=== PATIENT | female | born 1945 | race Caucasian/White ===

== ENCOUNTER → 2016-05-16 | Outpatient (CLI) | payer MEDICARE, MEDICAID ==
[~2016-05-16] MED LIST: /ADVA50050 IN; /ADVA50050 INH; /ADVA50050 PO; /DULO30CA OR; /ESOM40CA OR; /ESOM40CA PO; /MOXI40TA PO; /PANT40TA PO; /RANI15TA PO; /TIOT18INH INH; ABIL5TAB PO; ACCO20TA4 OR; ACCO20TA4 PO; ACET250C PO; ACET50TAOT PO; ACET650S3 PR; ADV500INH INH; ADVAIR INH; ALBUTEROL INH; ALLO100T PO; ALLO10TA PO; ALOE; AMMO12CR4 TOP; ASPI1TAB PO; ASPI325T PO; ASPI81TA3 PO; ATEN25TA PO; ATIV1TAB10 PO; ATOR40TA PO; AVEL1TAB PO; BACT2OIN12; BEN1.4DI TD; BETA10003 PO; CALC0.25 PO; CALCCHW12 OR; CALCCHW12 PO; CALCTAB75 PO; CETI5TA PO; CORE3.12 OR; COZA25TA8 OR; CYMB1CAP4 PO; DOCQ100C PO; DULO20CA PO; DULO30CA PO; DUONSOL IN; DUONSOL INH; ECOT81TA5 PO; FERR324T2 PO; FERR325T16 PO; FEXO180T58 PO; FLUTISP; FURO20TA2 OR; FURO20TA2 PO; FURO40TA2 PO; FURO80TA2 OR; GABA300C2 PO; GLIM1TAB OR; GLUC1000 PO; HYDR-3719 PO; HYDROCORTISONE0.5 % EX; IBUP60TA PO; ICAPCAP PO; INSUHUMDS SC; INSULANT SC; INSUPOW SC; INVO100T PO; K-TA10TA2 PO; LASI20TA PO; LASI80TA PO; LEVA750T OR; LEVO500T PO; LEVOCETIRIZINE PO; LEVOTAB10 PO; LISI10TA4 PO; LISI20TA5 OR; LISI20TA5 PO; LISI5TAB PO; MAG-400T7 PO; MAGN400C2 PO; MEGATAB4 PO; MELOPOW PO; METF-415 PO; METF500T PO; METO25TA PO; MONT10TA2 PO; MORP15TA2 PO; MOXI1TAB PO; MULTIVIT OR; MULTIVIT PO; MYSO50TA PO; NEUR300C PO; NEXI40CA PO; OXYC1TAB23 PO; OYST500T50 PO; PERC5TAB6 PO; PERC7.5T12 PO; PERCOCET PO; POTA10CA2 OR; POTA20TA6 PO; PRED20TA OR; PRED20TA PO; PRIM250T5 PO; PRIMPOW10 PO; PRO AIR INH; PROA1AER INH; PROV90AE IN; RANI15TA PO; ROSI2TA OR; ROSI2TA PO; SIMV40TA2 OR; SING4GRA PO; SITA50TAB PO; SPIR1CAP INH; SPIR25TA2 PO; SYNT50TA PO; TRAM50TA2 OR; TRAM50TA2 PO; TRAMADOL PO; TRAZ100T OR; TRAZ150T14 PO; TRIC145T PO; TRIC145T19 OR; TRIC145T19 PO; VARE05TA PO; VARE1TA PO; VENL100T PO; VENL150C43 PO; VENL37TA OR; VENL75TA2 PO; VENLAFAXINE ER PO; VICO5TAB OR; VIT D 2000 PO; VIT D3; VITA2000 PO; VOLT1GEL2 TD; XYZA5TAB2 PO; ZANT150T PO; ZOCO40TA PO; [UNRECOGNIZED DRUG - CODE] PO; [UNRECOGNIZED DRUG - OTHER]; [UNRECOGNIZED DRUG - OTHER]; januvia PO
--- NOTE | 2016-05-16 08:53 | REP ---
Clinical: Postoperative swelling. Technique: PA and lateral. Comparison: 04/23/2016. Findings: Mediastinum and cardiac silhouette are within normal limits and stable. Lung jacome demonstrate chronic interstitial changes without acute consolidation, effusion, or pneumothorax. Skeletal structures are intact. Visualized surrounding soft tissues without subcutaneous emphysema or obvious mass/mass effect. Impression: Chronic stable changes. No obvious acute cardiopulmonary process by radiographic evaluation. Signed by Ki Garcia MD 05/16/2016 08:45 A
== END ==
LOC: M SMT 08:00
PROVIDERS: ATTEND Thoracic Surgery (Cardiothoracic Vascular Surgery)
DX: R22.2 Localized swelling, mass and lump, trunk (principal)

== ENCOUNTER → 2016-05-28 | Outpatient (CLI) | payer MEDICARE, MEDICAID ==
[~2016-05-28] MED LIST changes: +FLUT1POW2
[2016-05-28 12:07] LABS: INR 0.91
[2016-05-28 12:11] LABS: MEAN CORPUSCULAR HEMOGLOBIN 31.2 pg (27.0-33.0); MEAN CORPUSCULAR HGB CONC 34.9 g/dl (32.0-36.5); MEAN CORPUSCULAR VOLUME 89.3 fl (80.0-96.0); WHITE BLOOD COUNT 8.4 K/mm3 (4.0-10.0)
[2016-05-28 12:21] LABS: CALCIUM LEVEL 8.4 MG/DL (8.8-10.2); CREATININE FOR GFR 1.15 MG/DL (0.55-1.02); GLOMERULAR FILTRATION RATE 49.7 (>39); POTASSIUM SERUM 4.8 MEQ/L (3.5-5.1)
[2016-05-28 12:31] LABS: MICROSCOPIC INDICATED? MAN NO (NO)
--- NOTE | 2016-05-29 18:03 | ECGEPIP ---
Stationary ECG Study [facility] Test Date: 2016-05-28 Pat Name: PINEDA VALDERRAMA Department: Room: - Gender: F Health Tech: RONDA : 1945 Requested By: Tim Montes Order Number: [id number] Reading MD: Clinton Adames Measurements Intervals [place] Rate: 88 P: 59 KS: 160 QRS: 75 QRSD: 73 T: 66 QT: 341 QTc: 413 Interpretive Statements SINUS RHYTHM LAST TRACING ON 09/27/2014 AT 11:34:43. NO PACs NOTED AT THIS TIME OTHERWISE THERE ARE NO SIGNIFICANT CHANGES Electronically Signed On 05-29-2016 18:02:52 EST by Clinton Adames
== END ==
LOC: M LAB 11:03
PROVIDERS: ATTEND Thoracic Surgery (Cardiothoracic Vascular Surgery)
DX: C34.11 Malignant neoplasm of upper lobe, right bronchus or lung (principal); Z01.818 Encounter for other preprocedural examination

== ENCOUNTER → 2016-05-30 | Outpatient (CLI) | payer MEDICARE, MEDICAID ==
--- NOTE | 2016-05-30 17:06 | REP ---
CT study of the chest without contrast: History: Lung cancer. Comparison is made with prior CT studies, the most recent of which is from 02/14/2016. 02/09/2015 prior study is also reviewed. CT findings: The non solid ground-glass opacity previously noted in the right upper lobe is again seen. This has spiculated margins and a 2 cm greatest diameter today. It has enlarged somewhat since the prior studies. This must be considered suspicious. There is another irregular opacity in the superior segment left lower lobe measuring 7 mm in diameter which is unchanged. This is unchanged from February 2015. There is a small cavitary nodular opacity 6 mm in diameter in the left upper lobe posteriorly. This appears slightly smaller than on the most recent prior study of 02/14/2016. There are advanced emphysematous changes bilaterally particularly in the upper lobes. A stable pleural based nodular opacity is seen in the right upper lobe posteriorly 6 mm in diameter. This is unchanged from February 2015. No hilar or mediastinal mass or adenopathy is observed. No pleural effusion is seen. No adrenal lesion is seen. The visualized upper abdominal structures are unremarkable. There is some vascular calcification as before. No bony destructive lesion is seen. Impression: Gradual enlargement in the suspicious ground-glass opacity 2 cm in greatest diameter now in the posterior segment right upper lobe. Otherwise stable findings. Signed by Haroldo Stokes MD 05/31/2016 07:50 A
== END ==
LOC: M RAD 16:08
PROVIDERS: ATTEND Thoracic Surgery (Cardiothoracic Vascular Surgery)
DX: C34.11 Malignant neoplasm of upper lobe, right bronchus or lung (principal)

== ENCOUNTER 2016-05-31 06:31 | Inpatient (IN) | payer MEDICARE, MEDICAID ==
[2016-05-31] VITALS (11 sets, daily range): BP systolic 97–155; BP diastolic 44–86
[~2016-05-31] VITALS: Ht 167.6 cm; Wt 115.5 kg
[~2016-05-31 06:31] MED LIST changes: +LR 1,000 ML IV SCH; +VANCOMYCIN HCL 1,000 MG, VIAL MATE ADAPTER 1 EACH in D5W 250 ML IV ONE
[2016-05-31] MEDS ORDERED: MUPIROCIN 2% OINT 22 GM TUBE TOP ONE (06:45)
[2016-05-31] MEDS ORDERED: BUPIVACAINE HCL 0.5% 10 ML VIAL As Ordered ONE (07:25)
[2016-05-31 07:26] LABS: ABG BASE EXCESS -0.2 (-2.0-2.0); ABG HCO3 23.8 MEQ/L (22.0-26.0); ABG PARTIAL PRESSURE CO2 36.9 mmHg (35.0-45.0); ABG PARTIAL PRESSURE O2 66.1 mmHg (75.0-100.0); ABG STANDARD HCO3 24.2 MEQ/L (22.0-26.0); ABG pH (ARTERIAL) 7.428 UNITS (7.350-7.450); CARBOXYHEMOGLOBIN 1.5 % (0.0-1.5)
[2016-05-31] MEDS ORDERED: BUPIVACAINE LIPOSOME/PF 1.3% 20ML (266MG/20ML) VIAL (EXPAREL) As Ordered ONE (07:26)
[2016-05-31] MEDS ORDERED: ROCURONIUM BROMIDE 50 MG/5 ML VIAL As Ordered ONE ×3 (07:54→11:48)
[2016-05-31] MEDS ORDERED: MIDAZOLAM INJ 2 MG/2 ML VIAL (J2250) As Ordered ONE ×2 (07:54→08:19)
[2016-05-31] MEDS ORDERED: fentaNYL 250 MCG/5 ML INJECTION (J3010) As Ordered ONE ×2 (07:54→11:46)
[2016-05-31] MEDS ORDERED: LIDOCAINE 2% INJ 100 MG/5 ML SDV (FOR ANES.) As Ordered ONE (07:54)
[2016-05-31] MEDS ORDERED: PROPOFOL 200 MG/20 ML VIAL As Ordered ONE (07:54)
[2016-05-31] MEDS ORDERED: HumaLOG INSULIN (NovoLOG) PER UNIT SC ONE ×2 (08:15→15:30)
[2016-05-31] MEDS ORDERED: fentaNYL 100 MCG/2 ML INJECTION (J3010) As Ordered ONE (08:19)
--- NOTE | 2016-05-31 09:21 | REP ---
CHEST, TWO VIEWS: HISTORY: Preop. COMPARISON: 05/16/2016 A minimal increase in interstitial markings is present in the lungs consistent with chronic interstitial fibrosis. The heart is normal in size. The pulmonary vasculature is normal in appearance. The bony structure is intact. IMPRESSION: Chronic interstitial fibrosis. Signed by Bassam Cook MD 05/31/2016 09:24 A
[2016-05-31] MEDS ORDERED: ePHEDrine SULFATE 25 MG/5 ML(5MG/ML) SYRINGE As Ordered ONE (10:18)
[2016-05-31] MEDS ORDERED: PHENYLephrine HCL 500 MCG/5 ML (100MCG/ML) SYRINGE (J2370) As Ordered ONE (10:18)
[2016-05-31] MEDS ORDERED: fentaNYL 100 MCG/2 ML INJECTION (J3010) IV ONE (10:30)
[2016-05-31] MEDS ORDERED: MIDAZOLAM INJ 2 MG/2 ML VIAL (J2250) IV ONE (10:30)
[2016-05-31] MEDS ORDERED: BUPIVACAINE HCL 0.5% 10 ML VIAL XX ONE (10:44)
[2016-05-31] MEDS ORDERED: BUPIVACAINE LIPOSOME/PF 1.3% 20ML (266MG/20ML) VIAL (EXPAREL) XX ONE (10:45)
[2016-05-31] MEDS ORDERED: NALOXONE INJ 0.4 MG/1 ML VIAL (J2310) IV PRN (11:00)
[2016-05-31] MEDS ORDERED: diphenhydrAMINE INJ 50MG/ML VIAL (J1200) IV PRN (11:00)
[2016-05-31] MEDS ORDERED: EPIDURAL/PCA KEYS XX PRN (11:00)
[2016-05-31] MEDS: FENTANYL/BUPIVACAINE/NACL CADD 250 ML EPIDURAL SCH (11:00)
[2016-05-31] MEDS ORDERED: METOCLOPRAMIDE INJ 10MG/2ML VIAL (J2765) IV PRN ×2 (11:00→14:45)
[2016-05-31] MEDS ORDERED: ONDANSETRON 4MG/2ML VIAL (J2405) IV PRN ×3 (11:00→14:45)
[2016-05-31] MEDS ORDERED: WALLBOXKEY XX PRN (11:00)
[2016-05-31] MEDS ORDERED: NEOSTIGMINE 1MG/ML 5 ML SYRINGE (J2710) As Ordered ONE (13:00)
[2016-05-31] MEDS ORDERED: GLYCOPYRROLATE INJ 0.2 MG/ML 2 ML VIAL As Ordered ONE ×2 (13:00)
[2016-05-31] MEDS ORDERED: ONDANSETRON 4MG/2ML VIAL (J2405) As Ordered ONE (13:00)
[2016-05-31] MEDS ORDERED: KCL 20MEQ IN D5/NS 1000ML 1,000 ML IV SCH (14:06)
[2016-05-31] MEDS ORDERED: ACETAMINOPHEN TAB 650MG DOSE (2X325MG) PO PRN (14:15)
[2016-05-31] MEDS ORDERED: BISACODYL 10 MG SUPP PR PRN (14:15)
[2016-05-31] MEDS ORDERED: zolPIDEM TARTRATE 5 MG TAB PO PRN (14:15)
[2016-05-31 14:28] LABS: ABG BASE EXCESS 0.6 (-2.0-2.0); ABG HCO3 26.4 MEQ/L (22.0-26.0); ABG PARTIAL PRESSURE O2 132.9 mmHg (75.0-100.0); ABG STANDARD HCO3 25.1 MEQ/L (22.0-26.0); ABG TOTAL CO2 27.9 MEQ/L (23.0-31.0); ABG pH (ARTERIAL) 7.368 UNITS (7.350-7.450)
[2016-05-31] MEDS ORDERED: KETOROLAC 30 MG/ML VIAL (J1885) As Ordered ONE (14:28)
[2016-05-31] MEDS ORDERED: DEXTROSE 50% 50 ML SYRINGE IV PRN (14:30)
[2016-05-31] MEDS: KETOROLAC 30 MG/ML VIAL (J1885) IV SCH (14:30)
[2016-05-31] MEDS ORDERED: GLUCAGON FOR INJ 1 MG VIAL (J1610) SC PRN (14:30)
[2016-05-31] MEDS ORDERED: GLUCOSE 4 GM CHEW TABLET PO PRN (14:30)
[2016-05-31 14:31] LABS: BASO % 0.3 % (0.0-1.0); EOS # 0.1 K/mm3 (0.0-0.50); EOS % 0.6 % (0.0-3.0); LARGE UNSTAINED CELL # 0.1 K/mm3 (0.0-0.4); LARGE UNSTAINED CELL % 0.6 % (0.0-4.0); LYMPH # 0.6 K/mm3 (1.5-4.5); MEAN CORPUSCULAR HEMOGLOBIN 30.3 pg (27.0-33.0); MEAN CORPUSCULAR HGB CONC 33.2 g/dl (32.0-36.5); MEAN CORPUSCULAR VOLUME 91.2 fl (80.0-96.0); MONO # 0.8 K/mm3 (0.0-0.8); MONO % 4.7 % (0.0-5.0); NEUTROPHILS # 14.3 K/mm3 (1.8-7.7); NEUTROPHILS % 89.8 % (36.0-66.0); PLATELET COUNT, AUTOMATED 227 k/mm3 (150-450); RED CELL DISTRIBUTION WIDTH 14.8 % (11.5-14.5)
[2016-05-31] MEDS ORDERED: LR 1,000 ML IV SCH (14:45)
[2016-05-31] MEDS ORDERED: PERCOCET 5MG/325MG TAB PO PRN (14:45)
[2016-05-31 14:46] LABS: CALCIUM LEVEL 8.3 MG/DL (8.8-10.2); CREATININE FOR GFR 1.09 MG/DL (0.55-1.02); GLOMERULAR FILTRATION RATE 52.8 (>39)
[2016-05-31 14:47] LABS: POTASSIUM SERUM 5.4 MEQ/L (3.5-5.1)
[2016-05-31] MEDS: fentaNYL 100 MCG/2 ML INJECTION (J3010) IV PRN ×4 (14:50→15:23)
--- NOTE | 2016-05-31 15:04 | REP ---
PORTABLE CHEST: Single AP portable view of the chest is performed. Patient is status post right lobectomy. Two right chest tubes appear to be in place. There is no pneumothorax. There is mild elevation of the right hemidiaphragm. There are scattered right lung opacities. Left lung is unchanged. IMPRESSION: No pneumothorax. Two right chest tubes in place. Mild scattered right lung opacities compatible with right lobectomy. Signed by Alfred Hughes MD 05/31/2016 04:29 P
[2016-05-31 15:14] LABS: ABG BASE EXCESS 0.9 (-2.0-2.0); ABG PARTIAL PRESSURE CO2 43.3 mmHg (35.0-45.0); ABG PARTIAL PRESSURE O2 88.8 mmHg (75.0-100.0); ABG STANDARD HCO3 25.3 MEQ/L (22.0-26.0); ABG TOTAL CO2 27.4 MEQ/L (23.0-31.0); ABG pH (ARTERIAL) 7.397 UNITS (7.350-7.450)
[2016-05-31] MEDS ORDERED: D5W/0.9% SODIUM CHLORIDE 1,000 ML IV SCH (16:15)
[2016-05-31] MEDS: MOM 30ML SUSPENSION UDC PO SCH (17:24)
[2016-05-31] MEDS: CALCIUM/VITAMIN D 500 MG TAB PO SCH (17:24)
[2016-05-31] MEDS: FUROSEMIDE 20 MG TAB PO SCH (17:25)
[2016-05-31] MEDS: ASPIRIN 81 MG ENTERIC TAB PO SCH (17:25)
[2016-05-31] MEDS: DULoxetine 30 MG CAP (CYMBALTA) PO SCH (17:25)
[2016-05-31] MEDS: FERROUS GLUCONATE 324 MG TAB PO SCH (17:25)
[2016-05-31] MEDS ORDERED: HumaLOG INSULIN (NovoLOG) PER UNIT SC SCH ×2 (17:30)
[2016-05-31] MEDS: HumaLOG INSULIN (NovoLOG) PER UNIT SC SCH ×2 (18:00→23:06)
[2016-05-31] MEDS: ADVAIR DISKUS 500/50 INH PWD INH SCH (19:44)
[2016-05-31] MEDS: LEVALBUTEROL 1.25 MG/0.5 ML CONCENTRATE NEB NEB SCH (20:00)
[2016-05-31] MEDS ORDERED: ADVAIR DISKUS 500/50 INH PWD INH SCH (20:00)
[2016-05-31] MEDS: DOCUSATE SODIUM 100 MG CAP PO SCH (20:06)
[2016-05-31] MEDS: HEPARIN SOD (PORCINE) 5000 UNITS/ML VIAL SC SCH (20:06)
[2016-05-31] MEDS: ALLOPURINOL 100 MG TAB PO SCH (20:06)
[2016-05-31] MEDS: ATORVASTATIN 20 MG TAB PO SCH (20:06)
[2016-05-31] MEDS: traZODone 50 MG TAB PO SCH (20:09)
--- NOTE | 2016-05-31 23:19 | RO ---
DATE OF PROCEDURE: 05/31/2016 PREPROCEDURE DIAGNOSIS: Right upper lobe lung cancer. POSTPROCEDURE DIAGNOSIS: Right upper lung cancer. OPERATIVE PROCEDURES: Right upper lobectomy. Mediastinal node dissection. Five level rib block. Bronchoscopy. Azygos flap bronchoplasty. SURGEON: Tim Alexander MD [employer]: Vega Arredondo MD ANESTHESIA: FINDINGS: The patient was morbidly and massively obese. This made everything much more difficult. She had lots of inflammatory adipose tissue manifested both in the chest wall and within the mediastinum. Nonetheless, the procedure did go well. The bronchoscopy revealed a normal branching tracheobronchial tree. There were a few secretions. Each segment and subsegment were thoroughly inspected and there were no endobronchial lesions seen. Dr. Arredondo assisted in providing exposure to all the great vessels and retraction. This was done so that the procedure could be done safely in this morbidly obese woman. The thoracotomy revealed essentially complete fissures with adhesions between the fissures. The middle lobe being was bifurcated and both bifurcations were assiduously preserved. Phrenic nerve was noted and was preserved. All and all the procedure was made much more difficult than usual by her morbid obesity. DESCRIPTION OF PROCEDURE: Under satisfactory general anesthesia and a single lumen tube endotracheal intubation, the bronchoscope was placed into the tracheobronchial tree. The findings were as above. There were no endobronchial lesions and each bronchial segment and subsegment were entirely inspected. A double lumen tube was then placed. The patient was then turned to the left lateral decubitus position and sterilely prepped and draped in the usual fashion. The patient had previously been marked as far as where the incisions were going to go. A posterolateral thoracotomy incision was made. This was much larger than normal secondary to her morbid obesity. The latissimus dorsi was divided as was a portion of the serratus anterior. Ribs were counted and it was found that the adipose tissue lining the chest wall was very stuck to the chest wall from chronic inflammation. The chest was entered through the fifth intercostal space above the 6th rib. Retractor was placed and the dissection commenced. All the adhesions to the chest wall which were thin and flimsy were taken down. The adhesions between the major and minor fissures were then taken down. The pulmonary artery was found and the minor fissure just near the confluence of fissures. This was dissected up and down so that the lower lobe vessels could be identified as could the middle lobe vessels. There was a small posterior ascending branch into the right upper lobe and this was ligated with #3-0 silk suture and reinforced with a hemoclip. The posterior mediastinal pleura was then dissected free of the underlying bronchus and the bifurcation between the right upper lobe takeoff and the bronchus intermedius could be delineated. After very careful dissection through a lot of adipose tissue a tunnel could be created from the anterior fissure dissection area to the posterior pleura. Allowed completion of the major fissure by use of a Pablo GENE stapler. Attention was then turned to the pulmonary vein which was dissected free of all the adipose tissue. The middle lobe vein was found to consistent of two immediate branches from the superior pulmonary vein. These were dissected carefully and then the major fissure was again created with the Pablo stapler. The right upper lobe pulmonary vein was then stapled with a vascular GI stapler. The upper lobe vein was then dissected free again of inflammatory tissue and eventually was stapled with a vascular stapler. This was a very tedious slow dissection and in fact both two major branches were taken separately in order to do it safely. Dr. Arredondo was of immense help with the vascular dissections. This then left the bronchus which was then stapled with a 4.8 TA stapler. The bronchus was then tested to 40 cm of water and was found to be intact. There were a few parenchymal leaks where the major and minor fissures had been completed. The mediastinal pleura between the trachea and the superior vena cava was then incised. This had already been cleared with a mediastinoscopy, however, there was an azygos node which was removed after dividing the azygos vein with a vascular stapler. The base of the vein was stapled with two firings of a vascular TA stapler and the azygos vein filleted so as to create an azygos vein flap over the exposed bronchus. After removing the azygos node additional nodes were removed on the bronchus intermedius and the main stem bronchus. The azygos vein flap was then sewn to the bronchial stump with interrupted #3-0 Vicryl sutures. After achieving adequate hemostasis and placing Tisseel glue within the mediastinal dissection space, two chest tubes were placed, both #28s, one curved and one straight posteriorly and anteriorly respectively. Tisseel glue was then placed on the staple lines and the lung inflated. Five level rib block consisting of 0.50% Marcaine mixed with Exparel was then injected beneath each respective rib. Pericostals were then placed and the ribs reapproximated with #1 Prolene suture. The serratus anterior was reapproximated with use of #0 Vicryl suture as was the latissimus dorsi. Subcutaneous tissue was closed with running #3-0 Vicryl suture and the skin with running #3-0 Monocryl subcuticular suture. Prior to closure of the subcutaneous tissue Exparel was injected into the serratus and the platysma dorsi. The patient tolerated the procedure well and left the operating room in satisfactory condition for the recovery room. ROMERO
[2016-06-01] VITALS (14 sets, daily range): BP systolic 116–155; BP diastolic 39–79; O2SAT 89
[2016-06-01] MEDS: LEVALBUTEROL 1.25 MG/0.5 ML CONCENTRATE NEB NEB SCH ×4 (02:00→20:00)
[2016-06-01] MEDS: KETOROLAC 30 MG/ML VIAL (J1885) IV SCH ×4 (03:41→21:00)
[2016-06-01] MEDS: LEVOTHYROXINE 0.05 MG TAB (50 MCG) PO SCH (05:36)
[2016-06-01] MEDS: HumaLOG INSULIN (NovoLOG) PER UNIT SC SCH ×4 (05:47→21:00)
[2016-06-01 05:51] LABS: BASO % 0.2 % (0.0-1.0); EOS # 0.1 K/mm3 (0.0-0.50); EOS % 0.5 % (0.0-3.0); LARGE UNSTAINED CELL # 0.2 K/mm3 (0.0-0.4); LARGE UNSTAINED CELL % 1.2 % (0.0-4.0); LYMPH # 0.5 K/mm3 (1.5-4.5); LYMPH % 4.3 % (24.0-44.0); MEAN CORPUSCULAR HEMOGLOBIN 30.4 pg (27.0-33.0); MEAN CORPUSCULAR HGB CONC 33.3 g/dl (32.0-36.5); MEAN CORPUSCULAR VOLUME 91.1 fl (80.0-96.0); MONO # 0.7 K/mm3 (0.0-0.8); MONO % 5.4 % (0.0-5.0); NEUTROPHILS # 11.1 K/mm3 (1.8-7.7); NEUTROPHILS % 88.4 % (36.0-66.0); PLATELET COUNT, AUTOMATED 195 k/mm3 (150-450); WHITE BLOOD COUNT 12.6 K/mm3 (4.0-10.0)
[2016-06-01 06:10] LABS: CALCIUM LEVEL 8.2 MG/DL (8.8-10.2); CREATININE FOR GFR 1.05 MG/DL (0.55-1.02); GLOMERULAR FILTRATION RATE 55.2 (>39); POTASSIUM SERUM 4.8 MEQ/L (3.5-5.1)
[2016-06-01 06:24] LABS: ABG BASE EXCESS 0.4 (-2.0-2.0); ABG PARTIAL PRESSURE CO2 45.8 mmHg (35.0-45.0); ABG PARTIAL PRESSURE O2 85.4 mmHg (75.0-100.0); ABG STANDARD HCO3 24.8 MEQ/L (22.0-26.0); ABG TOTAL CO2 27.4 MEQ/L (23.0-31.0); ABG pH (ARTERIAL) 7.372 UNITS (7.350-7.450)
[2016-06-01] MEDS: TIOTROPIUM INHALER/CAPSULE (SPIRIVA) INH SCH (07:47)
[2016-06-01] MEDS: ADVAIR DISKUS 500/50 INH PWD INH SCH ×2 (07:48→20:32)
[2016-06-01] MEDS: MOM 30ML SUSPENSION UDC PO SCH (08:36)
[2016-06-01] MEDS: CALCIUM/VITAMIN D 500 MG TAB PO SCH (08:37)
[2016-06-01] MEDS: ASPIRIN 81 MG ENTERIC TAB PO SCH (08:37)
[2016-06-01] MEDS: FUROSEMIDE 40 MG TAB PO SCH (08:37)
[2016-06-01] MEDS: LISINOPRIL 10 MG TAB PO SCH (08:37)
[2016-06-01] MEDS: FERROUS GLUCONATE 324 MG TAB PO SCH (08:38)
[2016-06-01] MEDS: DOCUSATE SODIUM 100 MG CAP PO SCH ×2 (08:38→20:58)
[2016-06-01] MEDS: PANTOPRAZOLE 40MG TAB (PROTONIX) PO SCH ×2 (08:38→09:00)
[2016-06-01] MEDS: DULoxetine 30 MG CAP (CYMBALTA) PO SCH (08:38)
[2016-06-01] MEDS: HEPARIN SOD (PORCINE) 5000 UNITS/ML VIAL SC SCH ×2 (08:39→20:59)
[2016-06-01] MEDS ORDERED: PANTOPRAZOLE 40MG INJ (PROTONIX) (C9113) IV SCH (09:00)
[2016-06-01] MEDS: FUROSEMIDE 20 MG TAB PO SCH (11:46)
[2016-06-01] MEDS: FENTANYL/BUPIVACAINE/NACL CADD 250 ML EPIDURAL SCH (14:47)
[2016-06-01] MEDS ORDERED: GLUCOSE 4 GM CHEW TABLET PO PRN (17:45)
[2016-06-01] MEDS ORDERED: DEXTROSE 50% 50 ML SYRINGE IV PRN (17:45)
[2016-06-01] MEDS ORDERED: GLUCAGON FOR INJ 1 MG VIAL (J1610) SC PRN (17:45)
[2016-06-01] MEDS: ALLOPURINOL 100 MG TAB PO SCH (20:59)
[2016-06-01] MEDS: traZODone 50 MG TAB PO SCH (20:59)
[2016-06-01] MEDS: ATORVASTATIN 20 MG TAB PO SCH (20:59)
[2016-06-01] MEDS: LEVEMIR (INSULIN DETEMIR) 1 UNITS/0.01ML SC SCH (21:03)
[2016-06-02] VITALS (11 sets, daily range): BP systolic 107–127; BP diastolic 51–68; PULSE 86; O2SAT 94–95
[2016-06-02] MEDS: LEVALBUTEROL 1.25 MG/0.5 ML CONCENTRATE NEB NEB SCH ×4 (01:16→19:36)
[2016-06-02] MEDS: KETOROLAC 30 MG/ML VIAL (J1885) IV SCH ×2 (03:29→08:02)
[2016-06-02 05:02] LABS: BASO # 0.1 K/mm3 (0.0-0.2); EOS # 0.1 K/mm3 (0.0-0.50); EOS % 1.3 % (0.0-3.0); LARGE UNSTAINED CELL # 0.2 K/mm3 (0.0-0.4); LARGE UNSTAINED CELL % 1.8 % (0.0-4.0); LYMPH % 6.7 % (24.0-44.0); MEAN CORPUSCULAR HEMOGLOBIN 29.9 pg (27.0-33.0); MEAN CORPUSCULAR HGB CONC 33.3 g/dl (32.0-36.5); MEAN CORPUSCULAR VOLUME 89.9 fl (80.0-96.0); MONO # 0.7 K/mm3 (0.0-0.8); MONO % 6.4 % (0.0-5.0); NEUTROPHILS # 9.4 K/mm3 (1.8-7.7); NEUTROPHILS % 82.8 % (36.0-66.0); PLATELET COUNT, AUTOMATED 181 k/mm3 (150-450); RED CELL DISTRIBUTION WIDTH 16.3 % (11.5-14.5); WHITE BLOOD COUNT 11.4 K/mm3 (4.0-10.0)
[2016-06-02 05:09] LABS: CREATININE FOR GFR 1.22 MG/DL (0.55-1.02); GLOMERULAR FILTRATION RATE 46.4 (>39); POTASSIUM SERUM 4.3 MEQ/L (3.5-5.1)
[2016-06-02] MEDS: LEVOTHYROXINE 0.05 MG TAB (50 MCG) PO SCH (05:31)
[2016-06-02] MEDS: FERROUS GLUCONATE 324 MG TAB PO SCH (08:00)
[2016-06-02] MEDS: DOCUSATE SODIUM 100 MG CAP PO SCH ×2 (08:00→20:39)
[2016-06-02] MEDS: FUROSEMIDE 40 MG TAB PO SCH (08:00)
[2016-06-02] MEDS: MOM 30ML SUSPENSION UDC PO SCH (08:00)
[2016-06-02] MEDS: LISINOPRIL 10 MG TAB PO SCH (08:01)
[2016-06-02] MEDS: ASPIRIN 81 MG ENTERIC TAB PO SCH (08:01)
[2016-06-02] MEDS: DULoxetine 30 MG CAP (CYMBALTA) PO SCH (08:02)
[2016-06-02] MEDS: HEPARIN SOD (PORCINE) 5000 UNITS/ML VIAL SC SCH ×2 (08:02→20:40)
[2016-06-02] MEDS: HumaLOG INSULIN (NovoLOG) PER UNIT SC SCH ×4 (08:03→20:49)
[2016-06-02] MEDS: PANTOPRAZOLE 40MG TAB (PROTONIX) PO SCH (08:03)
[2016-06-02] MEDS: CALCIUM/VITAMIN D 500 MG TAB PO SCH (08:04)
[2016-06-02] MEDS: TIOTROPIUM INHALER/CAPSULE (SPIRIVA) INH SCH (08:13)
[2016-06-02] MEDS: ADVAIR DISKUS 500/50 INH PWD INH SCH ×2 (08:13→19:35)
[2016-06-02] MEDS: LIDOCAINE 5% (LIDODERM) PATCH TD SCH (09:00)
[2016-06-02] MEDS: FENTANYL/BUPIVACAINE/NACL CADD 250 ML EPIDURAL SCH (10:16)
[2016-06-02] MEDS: LEVEMIR (INSULIN DETEMIR) 1 UNITS/0.01ML SC SCH ×2 (10:16→20:40)
[2016-06-02] MEDS: FUROSEMIDE 20 MG TAB PO SCH (12:08)
[2016-06-02] MEDS: PERCOCET 5MG/325MG TAB PO PRN (18:46)
[2016-06-02] MEDS: ALLOPURINOL 100 MG TAB PO SCH (20:39)
[2016-06-02] MEDS: traZODone 50 MG TAB PO SCH (20:39)
[2016-06-02] MEDS: ATORVASTATIN 20 MG TAB PO SCH (20:39)
[2016-06-02] MEDS: **NOTE PATIENT COMMENT** MISC XX SCH (20:41)
[2016-06-03] VITALS (8 sets, daily range): BP systolic 108–133; BP diastolic 51–62; PULSE 77–81; O2SAT 95–96
[2016-06-03] MEDS: PERCOCET 5MG/325MG TAB PO PRN ×4 (00:18→19:32)
[2016-06-03] MEDS: LEVALBUTEROL 1.25 MG/0.5 ML CONCENTRATE NEB NEB SCH ×4 (01:30→20:12)
[2016-06-03] MEDS: FENTANYL/BUPIVACAINE/NACL CADD 250 ML EPIDURAL SCH ×2 (02:33→21:59)
[2016-06-03] MEDS: LEVOTHYROXINE 0.05 MG TAB (50 MCG) PO SCH (05:32)
[2016-06-03 05:51] LABS: CALCIUM LEVEL 8.1 MG/DL (8.8-10.2); CREATININE FOR GFR 1.34 MG/DL (0.55-1.02); GLOMERULAR FILTRATION RATE 41.6 (>39); POTASSIUM SERUM 4.4 MEQ/L (3.5-5.1)
[2016-06-03 06:01] LABS: BASO # 0.1 K/mm3 (0.0-0.2); BASO % 0.9 % (0.0-1.0); EOS # 0.4 K/mm3 (0.0-0.50); EOS % 3.6 % (0.0-3.0); LARGE UNSTAINED CELL # 0.2 K/mm3 (0.0-0.4); LARGE UNSTAINED CELL % 2.1 % (0.0-4.0); LYMPH # 1.2 K/mm3 (1.5-4.5); LYMPH % 8.3 % (24.0-44.0); MEAN CORPUSCULAR HEMOGLOBIN 29.9 pg (27.0-33.0); MEAN CORPUSCULAR HGB CONC 33.4 g/dl (32.0-36.5); MEAN CORPUSCULAR VOLUME 89.4 fl (80.0-96.0); MONO # 0.7 K/mm3 (0.0-0.8); MONO % 6.5 % (0.0-5.0); NEUTROPHILS # 8.9 K/mm3 (1.8-7.7); NEUTROPHILS % 78.5 % (36.0-66.0); PLATELET COUNT, AUTOMATED 187 k/mm3 (150-450); RED CELL DISTRIBUTION WIDTH 16.1 % (11.5-14.5); WHITE BLOOD COUNT 11.3 K/mm3 (4.0-10.0)
[2016-06-03] MEDS: ADVAIR DISKUS 500/50 INH PWD INH SCH ×2 (07:22→19:24)
[2016-06-03] MEDS: TIOTROPIUM INHALER/CAPSULE (SPIRIVA) INH SCH (07:22)
[2016-06-03] MEDS: MOM 30ML SUSPENSION UDC PO SCH (08:17)
[2016-06-03] MEDS: HumaLOG INSULIN (NovoLOG) PER UNIT SC SCH ×4 (08:18→21:00)
[2016-06-03] MEDS: LEVEMIR (INSULIN DETEMIR) 1 UNITS/0.01ML SC SCH ×2 (08:19→21:29)
[2016-06-03] MEDS: FERROUS GLUCONATE 324 MG TAB PO SCH (08:19)
[2016-06-03] MEDS: LISINOPRIL 10 MG TAB PO SCH (08:19)
[2016-06-03] MEDS: DOCUSATE SODIUM 100 MG CAP PO SCH ×2 (08:19→21:29)
[2016-06-03] MEDS: CALCIUM/VITAMIN D 500 MG TAB PO SCH (08:19)
[2016-06-03] MEDS: FUROSEMIDE 40 MG TAB PO SCH (08:19)
[2016-06-03] MEDS: ASPIRIN 81 MG ENTERIC TAB PO SCH (08:19)
[2016-06-03] MEDS: PANTOPRAZOLE 40MG TAB (PROTONIX) PO SCH (08:19)
[2016-06-03] MEDS: DULoxetine 30 MG CAP (CYMBALTA) PO SCH (08:19)
[2016-06-03] MEDS: HEPARIN SOD (PORCINE) 5000 UNITS/ML VIAL SC SCH ×2 (08:20→21:29)
[2016-06-03] MEDS: LIDOCAINE 5% (LIDODERM) PATCH TD SCH (08:21)
--- NOTE | 2016-06-03 08:29 | REP ---
The PA and lateral chest: Comparisons are the portable chest on 05/31/2016, PA and lateral chest of 05/31/2016, PA and lateral chest of 05/16/2016. There are two right thoracotomy tubes, one anteriorly and one laterally, unchanged from the portable chest of 05/31/2016. The right hilus is slightly elevated. There are surgical clips in the right suprahilar area compatible with right upper lobectomy. There is a tiny barely visible pneumothorax over the apex of the right lung. There is focal pleural thickening along the right lateral chest wall. There is a fracture at the lateral aspect of the right sixth rib and the pleural thickening is adjacent to this fracture. Left lung is clear. Cardiac size is normal. There is an epidural catheter. Signed by Alfred Michele MD 06/01/2016 08:35 A
--- NOTE | 2016-06-03 08:30 | IPN ---
DATE: 06/01/2016 This is now the first postoperative day for Mrs. Caal who has had a stable night after surgery. Her pain is being well controlled with the epidural. She still has some shoulder pain. I am giving her Toradol and her kidney function has remained stable. Her vital signs show a T-max of 99.3 with a heart rate that ranges between 83 and 94 in a sinus rhythm, respiratory rate of 18 to 20 without the use of accessory muscles. She is 97% saturated on 3 liters nasal cannula with support of CPAP for sleep apnea overnight. Her blood pressure is ranging between 130/61 to 143/66. Her intake and output over the past 24 hours has been recorded as 2020 in and 1067 out for a positivity of 950 mL. She has put out 220 mL from the chest tube and there is no air leak. She has put out 595 mL in urine. Her weight today is 119.5 kg compared to 120.5 kg yesterday. PHYSICAL EXAMINATION: Her lungs show normal vesicular sounds on both sides. Both sides are equal. Percussion notes are full to the diaphragm. Cardiac exam is without murmurs, clicks, gallops or rubs. I cannot feel her PMI. S1 and S2 are normal. Abdomen is soft, nontender, bowel sounds are positive but hypoactive. She is somewhat tympanic although it is difficult to tell from her morbid obesity. There is no CVA tenderness. Extremities show 1+ pretibial edema. No calf tenderness. No differential swelling of the upper extremities. Skin is warm, dry and perfused without cyanosis or mottling including that of the nail beds and knees. Neck is supple. There is no jugular venous distention. No subcutaneous emphysema. Trachea is midline. Mouth shows her mucous membranes to be pink and moist. Lips and commissures are without lesions. No thrush. Eyes show her pupils to be equal and reactive. Extraocular motor intact. Sclera anicteric. Neuro shows II through XII intact with gross motor and gross sensation intact. Gait is not tested. Psychiatric shows her to be awake and alert, oriented times three with appropriate mood and affect and conversational. Her white count today is 12.6 with hemoglobin and hematocrit of 12.3 and 36.8. Platelet count is 195 and differential shows 88% neutrophils, 4% lymphocytes, 5% monocytes. There are no immature forms. No toxic granulations. Her electrolytes are normal with BUN and creatinine of 28 and 1.05 essentially unchanged from yesterdays of 31 and 1.09 postoperatively. Glucose is 269 with a calcium of 8.2. Today's blood gases show a pH of 7.37, pCO2 of 45, and a PO2 of 85 on 3 liters nasal cannula. Her base excess is 0.4. Her chest x-ray shows her lung fully expanded to the chest wall. Her chest tubes have moved considerably secondary to her morbid obesity. Nonetheless, they are still in the chest. They are quite inferior, however, and are not draining the superior portion of the chest. The costophrenic angles are sharp, however. I see no infiltrates. There is pleural thickening at the incision site and in fact, there is a fractured rib at the incision site which was known during closure. There may be a very small apical air space. There is no subcutaneous emphysema however indicating no active air leak. IMPRESSION: 1. Postoperative day #1 status post right upper lobectomy. 2. Well differentiated adenocarcinoma right upper lobe, pathology pending. 3. Diabetes. 4. Morbid obesity. 5. Hypertension. 6. Gout. 7. Hyperlipidemia. 8. Depression. 9. Chronic obstructive pulmonary disease (COPD). PLAN AND DISCUSSION: I will not diurese her today. She is doing quite well and I will transfer to the progressive care unit (PCU). I will continue her chest tubes on suction. We will also continue the epidural and the Srivastava catheter.
--- NOTE | 2016-06-03 08:33 | IPN ---
DATE: 06/02/2016 Mrs. Caal has had a stable 24 hours. Her pain is being well controlled with the epidural, and the shoulder pain is much less today. Her vital signs show a maximum temperature (Tmax) of 98.5 with a heart rate that ranges between 86-84 in a sinus rhythm, respiratory rate of 18-22 without the use of accessory muscles, who is 93% saturated on 3 liters nasal cannula and whose blood pressure is ranging between 115/58 to 126/58. Her intake and output for the past 24 hours has been recorded as 2880 in and 1438 out for a positivity of 1400 mL. She has put out 260 mL from the chest tube and there is no air leak. She has put out 1175 mL in urine. Her weight today is 118.2 kg compared to 119.5 kg yesterday. On physical examination, she has equal breath sounds on either side. There is some coarse rhonchi, which clear with coughing on the right side. Percussion note is full to the diaphragm as far as I can tell with her morbid obesity. Cardiac exam is without murmurs, clicks, gallops or rubs. I cannot feel her point of maximum impulse (PMI). S1, S2 are normal. Abdomen is soft, nontender. Bowel sounds are positive. I cannot feel her liver through her morbid obesity. There is no costovertebral angle (CVA) tenderness. Extremities show trace pretibial edema. No calf tenderness. No differential swelling of the upper extremities. Skin is warm, dry and perfused, without cyanosis or mottling including that of the nail beds and knees. Neck is supple. There is no jugular venous distention. No subcutaneous emphysema. Trachea is midline. Mouth shows her mucous membranes to be pink and moist. Lips and commissures are without lesions. There is no thrush. Eyes show her pupils to be equal and reactive. Extraocular motor intact. Sclera anicteric. Neurologic shows II-XII intact, along with gross motor and gross sensation intact. Gait is not tested. Psychiatric shows her to be awake and alert, oriented times three with appropriate mood and affect and conversational. Her white count today is 11.4, down from 12.6 yesterday. Hemoglobin and hematocrit are 9.9 and 29.8, down from 12.3 and 36.8 yesterday. I suspect this is secondary to hemodilution. Platelet count is 181 and is stable, and differential shows 82% neutrophils, 6% lymphocytes, 6% monocytes. There are no immature forms. No toxic granulations. Her electrolytes show a sodium of 132 with a potassium of 4.3 and a BUN and creatinine of 34 and 1.22, up from 28 and 1.05 yesterday. Her chest x-ray today shows her lung fully expanded to the chest wall. Costophrenic angles are sharp. Chest tubes are still in the chest. There is obligate volume loss from lobectomy. There is pleural thickening around the incision site and rib fracture. I see no other infiltrates. There are no posterior infiltrates on the lateral film. IMPRESSION: 1. Postoperative day #2 status post right upper lobectomy. 2. Diabetes. 3. Hypertension. 4. Morbid obesity. 5. Chronic obstructive pulmonary disease (COPD). 6. Gout. PLAN AND DISCUSSION: I transferred her to the progressive care unit (PCU) yesterday but there were no beds. I will again not diurese her today. tube. I will discontinue her Toradol secondary to the bump in her creatinine. I will continue her chest tubes on suction. Hopefully, she will be able to be transferred to the PCU later today. ROMERO
--- NOTE | 2016-06-03 11:07 | REP ---
PA and lateral chest: Comparison is 06/01/2016. The The patient is status post right upper lobectomy. There are surgical clips in the right suprahilar area. There are two right thoracotomy tubes, unchanged. There is a fracture at the lateral aspect of the right sixth rib with adjacent focal pleural thickening, unchanged. There is volume loss in the right hemithorax with elevation of the right hemidiaphragm, unchanged. Right lung is clear. Cardiac size is normal. Epidural catheter is again noted, unchanged. Impression: No interval change. Signed by Alfred Michele MD 06/02/2016 08:24 A
[2016-06-03] MEDS: FUROSEMIDE 20 MG TAB PO SCH (12:00)
--- NOTE | 2016-06-03 12:30 | REP ---
TWO-VIEW CHEST: Two views of the chest are performed. COMPARISON: 06/02/2016 Two right chest tubes are again seen inferiorly not definitely changed in position. There is a tiny right apical pneumothorax. Scattered right lung opacities are unchanged. The left lung is unchanged in appearance. The cardiomediastinal silhouette is unchanged. IMPRESSION: Small right apical pneumothorax. Otherwise, stable exam. Signed by Alfred Hughes MD 06/03/2016 02:11 P
[2016-06-03] MEDS: LEVALBUTEROL 1.25 MG/0.5 ML CONCENTRATE NEB NEB PRN ×2 (13:06→23:21)
--- NOTE | 2016-06-03 14:22 | IPN ---
DATE: 06/03/2016 Mrs. Caal has had a stable 24 hours. Her pain is being more well controlled. She still has the epidural pain control going. Her vital signs show a T-max of 98.4 with a heart rate that ranges between 82 and 77 in a sinus rhythm, respiratory rate that is constant at 20, who is 93% to 91% saturated on 2 liters nasal cannula and whose blood pressure is ranging between 108/51 to 116/55. Her intake and output over the past 24 hours has been recorded as 3120 in and 2076 out for a positivity of 1000 mL. She is now approximately 2500 mL positive since surgery. She has put out 176 mL from the chest tube. Her weight today is 122.5 kg compared to 118.2 kg yesterday. There is no air leak from the chest tube. On physical examination, she has bilateral wheezing throughout. Wheezing is both in expiration and inspiration. She also has some coarse rhonchi, most of which is cleared with coughing and with decreased wheezing in inspiration. Her percussion note is full to the diaphragm. Cardiac Exam: Without murmurs, clicks, gallops, or rubs. I cannot feel her PMI. S1, S2 are normal. Abdomen: Soft. Nontender. Bowel sounds are positive. Extremities: Show trace pretibial edema. No calf tenderness. No differential swelling of the upper extremities. Skin: Warm, dry and perfused. Without cyanosis or mottling, including that of the nail beds and knees. She Neck: Supple. There is no jugular venous distention. No subcutaneous emphysema. Trachea is midline. Mouth: Shows her mucous membranes to be pink and moist. Lips and commissures are without lesions. There is no thrush. Eyes: Show her pupils to be equal and reactive. Extraocular movements intact. Sclerae nonicteric. Neurologic: Shows II-XII intact along with gross motor and gross sensation intact. Gait is not tested. Psychiatric shows her to be awake, alert, and oriented times three with appropriate mood and affect and conversational. Her white count today is 11.3 with hemoglobin and hematocrit of 9.2 and 27.4, down from 9.9 and 29.8 yesterday. I suspect this is again secondary to hemodilution. She is now a liter ahead. Her platelet count is 187 and stable. Differential shows 78% neutrophils, 8% lymphocytes, 6% monocytes. There are no immature forms and no toxic granulations. Her electrolytes show a sodium of 132 which is unchanged from yesterday with a potassium of 4.4. BUN and creatinine are slightly up to 38 and 1.34 from 34 and 1.22 yesterday and 28 and 1.05 the day before. There are no blood gases on her today. Her chest x-ray shows her lung fully expanded to the chest wall. She has pleural thickening over the incision site. Costophrenic angles are sharp. Chest tubes are still within the chest. I see no subcutaneous emphysema. There are no infiltrates posteriorly on the lateral film. IMPRESSION: 1. Postoperative day #3 status post right upper lobectomy. 2. Diabetes. 3. Hypertension. 4. Morbid obesity. 5. Chronic obstructive pulmonary disease. 6. Gout. 7. Depression. 8. Hyperlipidemia. PLAN AND DISCUSSION: I will discontinue the chest tube suction today. Hopefully, we will be able to remove them tomorrow. She has some renal insufficiency developing which I suspect is secondary to her diabetes and Toradol which was discontinued two days ago. I am still awaiting final pathology for staging.
[2016-06-03] MEDS: traZODone 50 MG TAB PO SCH (21:29)
[2016-06-03] MEDS: ATORVASTATIN 20 MG TAB PO SCH (21:29)
[2016-06-03] MEDS: **NOTE PATIENT COMMENT** MISC XX SCH (21:30)
[2016-06-03] MEDS: ALLOPURINOL 100 MG TAB PO SCH (21:30)
[2016-06-04] VITALS (8 sets, daily range): BP systolic 106–137; BP diastolic 55–86; O2SAT 91–95
[2016-06-04] MEDS: LEVALBUTEROL 1.25 MG/0.5 ML CONCENTRATE NEB NEB SCH ×4 (03:15→20:00)
[2016-06-04 03:27] LABS: BASO # 0.2 K/mm3 (0.0-0.2); EOS # 0.2 K/mm3 (0.0-0.50); EOS % 1.3 % (0.0-3.0); LARGE UNSTAINED CELL # 0.3 K/mm3 (0.0-0.4); LARGE UNSTAINED CELL % 1.6 % (0.0-4.0); LYMPH # 0.7 K/mm3 (1.5-4.5); MEAN CORPUSCULAR HEMOGLOBIN 29.5 pg (27.0-33.0); MEAN CORPUSCULAR HGB CONC 32.7 g/dl (32.0-36.5); MEAN CORPUSCULAR VOLUME 90.2 fl (80.0-96.0); MONO # 0.9 K/mm3 (0.0-0.8); MONO % 5.7 % (0.0-5.0); NEUTROPHILS # 14.1 K/mm3 (1.8-7.7); NEUTROPHILS % 87.4 % (36.0-66.0); PLATELET COUNT, AUTOMATED 234 k/mm3 (150-450); RED CELL DISTRIBUTION WIDTH 15.8 % (11.5-14.5); WHITE BLOOD COUNT 16.2 K/mm3 (4.0-10.0)
[2016-06-04 03:49] LABS: CALCIUM LEVEL 8.5 MG/DL (8.8-10.2); CREATININE FOR GFR 1.39 MG/DL (0.55-1.02); GLOMERULAR FILTRATION RATE 39.9 (>39); POTASSIUM SERUM 4.6 MEQ/L (3.5-5.1)
[2016-06-04] MEDS ORDERED: FUROSEMIDE 40 MG/4 ML VIAL (J1940) IV STA (03:56)
[2016-06-04] MEDS ORDERED: FUROSEMIDE 40 MG/4 ML VIAL (J1940) IV ONE (04:00)
[2016-06-04] MEDS: PERCOCET 5MG/325MG TAB PO PRN (04:06)
[2016-06-04 04:16] LABS: ABG BASE EXCESS -1.1 (-2.0-2.0); ABG HCO3 23.2 MEQ/L (22.0-26.0); ABG PARTIAL PRESSURE O2 55.8 mmHg (75.0-100.0); ABG STANDARD HCO3 23.4 MEQ/L (22.0-26.0); ABG TOTAL CO2 24.3 MEQ/L (23.0-31.0); ABG pH (ARTERIAL) 7.415 UNITS (7.350-7.450)
--- NOTE | 2016-06-04 05:00 | REPUSA ---
HISTORY: Not provided. TECHNIQUE : Single view of the chest. COMPARISON : None FINDINGS: Moderate cardiomegaly. Moderate interstitial pulmonary edema. Atherosclerosis. Small right pleural effusion. 2 chest tubes are noted in the base of the right pleural cavity. Mild changes of degenerative joint disease. IMPRESSION: Congestive heart failure. Small right pleural effusion. Two thoracostomy tubes are noted in the base of the right pleural cavity. Thank you for the kind referral of this patient.
[2016-06-04] MEDS: LEVOTHYROXINE 0.05 MG TAB (50 MCG) PO SCH (05:39)
[2016-06-04] MEDS: HumaLOG INSULIN (NovoLOG) PER UNIT SC SCH ×4 (07:30→20:30)
[2016-06-04] MEDS: ADVAIR DISKUS 500/50 INH PWD INH SCH ×2 (07:52→19:43)
[2016-06-04] MEDS: TIOTROPIUM INHALER/CAPSULE (SPIRIVA) INH SCH (07:52)
[2016-06-04 07:54] LABS: ALBUMIN 2.3 GM/DL (3.2-5.2); ALBUMIN/GLOBULIN RATIO 0.55 (1.00-1.93); BILIRUBIN,TOTAL 0.5 MG/DL (0.2-1.0); PHOSPHORUS LEVEL 3.1 MG/DL (2.5-4.9); TOTAL PROTEIN 6.5 GM/DL (6.4-8.2)
[2016-06-04] MEDS: LIDOCAINE 5% (LIDODERM) PATCH TD SCH (09:00)
[2016-06-04] MEDS: guaiFENesin ER 600 MG TAB PO SCH ×2 (09:00→20:29)
[2016-06-04] MEDS: HEPARIN SOD (PORCINE) 5000 UNITS/ML VIAL SC SCH ×2 (09:00→20:30)
--- NOTE | 2016-06-04 09:34 | REP ---
Chest x-ray: Two views. History: Status post right upper lobectomy. Comparison study June 04, 2016. Findings: Two right chest tubes remain in place. Epidural catheter and EKG monitoring electrodes are again seen. There are post thoracotomy changes on the right with clips and some increased soft tissue density at the right hilar level. Pleural thickening is seen along the lateral chest wall unchanged. No evidence of pneumothorax is seen. Some plate-like atelectasis is observed in the left base today which is a new finding. This is mild. Signed by Haroldo Stokes MD 06/04/2016 12:30 P
[2016-06-04] MEDS: methylPREDNISolone INJ 125 MG/2 ML VIAL (J2930) IV SCH ×2 (10:00→18:00)
[2016-06-04] MEDS: MOM 30ML SUSPENSION UDC PO SCH (10:05)
[2016-06-04] MEDS: DOCUSATE SODIUM 100 MG CAP PO SCH ×2 (10:06→20:29)
[2016-06-04] MEDS: FERROUS GLUCONATE 324 MG TAB PO SCH (10:06)
[2016-06-04] MEDS: FUROSEMIDE 40 MG TAB PO SCH (10:06)
[2016-06-04] MEDS: CALCIUM/VITAMIN D 500 MG TAB PO SCH (10:06)
[2016-06-04] MEDS: ASPIRIN 81 MG ENTERIC TAB PO SCH (10:06)
[2016-06-04] MEDS: DULoxetine 30 MG CAP (CYMBALTA) PO SCH (10:06)
[2016-06-04] MEDS: LISINOPRIL 10 MG TAB PO SCH (10:07)
[2016-06-04] MEDS: PANTOPRAZOLE 40MG TAB (PROTONIX) PO SCH (10:07)
[2016-06-04] MEDS: LEVEMIR (INSULIN DETEMIR) 1 UNITS/0.01ML SC SCH ×2 (10:08→20:31)
--- NOTE | 2016-06-04 10:32 | PHACANCOPD ---
PHARMACY VANCOMYCIN DOSING Pt Demographics Demographics Patient Age:70 , Weight:122.600 , Gender: female Adjusted Body Weight Date: 06/04/16, Adjusted Body Weight: Kg Events Past 24 Hours Events Past 24 Hours: YES: Change in CrCl, Elevation in WBC, Fever, NO: Dialysis, Diuretic Therapy, Other, Pending Diagnostics, Pending Procedures Vancomycin Vancomycin indication: Pneumonia Vancomycin Target Ranges: 10-20 mcg/ml Vancomycin Load Y/N: Yes Load Dose Date Time Vancomycin Load Dose: 1750mg Date: 06/04 Time: 1200 Vancomycin Dose Date: 06/04/16. Current Vancomycin Dose: [1gm IV q12h@12] Intermittent Dosing?: No Labs Labs Item Value Date Time White Blood Count 11.4 K/mm3 H 06/02/16 0409 White Blood Count 11.3 K/mm3 H 06/03/16 0446 White Blood Count 16.2 K/mm3 H 06/04/16 0318 Creatinine 1.22 MG/DL H 06/02/16 0409 Creatinine 1.34 MG/DL H 06/03/16 0446 Creatinine 1.39 MG/DL H 06/04/16 0318 Vital Signs Label Value Date Time Patient Temperature 99.7 degrees F 06/04/16 0422 Temperature Source Tympanic 06/04/16 0422 Patient Temperature 99.0 degrees F 06/04/16 0800 Temperature Source Tympanic 06/04/16 0800 Micro Microbiology 06/04/16 Blood Culture, Received Pending 06/02/16 MRSA Screen, Received Pending 05/31/16 MRSA Screen - Final, Complete 06/04/16 Urine Culture, Received Pending Creatinine Clearance Date:06/04/16. Creatinine Clearance: . Assessment and Plan Maintaining Current Dose?: Yes Reason for dose change: No Dose Change Pharmacist Note Pharmacist Note Date: 06/04/16. Pharmacist note: Patient was started on Vancomycin and Levaquin for treatment of Pneumonia. She has no history of Vancomycin use at our facility. She has had a history of both MSSA AND MRSA. Patient was loaded on Vancomycin 1750mg then continued on Vancomycin 1gm IV q12h. We will continue to monitor and make adjustments as necessary. JELENA GUTIÉRREZ PHARMACY Jun 04, 2016 10:32
[2016-06-04] MEDS: LevoFLOXacin IV 750 MG in APPROPRIATE DILUENT 1 EA IV SCH (10:35)
[2016-06-04] MEDS: VANCOMYCIN HCL 1,000 MG, VIAL MATE ADAPTER 1 EACH in D5W 250 ML IV SCH (12:00)
[2016-06-04] MEDS: FUROSEMIDE 20 MG TAB PO SCH (12:00)
--- NOTE | 2016-06-04 12:11 | IPN ---
DATE OF SERVICE: 06/04/2016 This is now the 4th postoperative day for Mrs. Caal. I am beginning to get worried about her, as she is requiring increasing oxygen concentrations to maintain her saturations. Overnight, she went from 2 to 4 liters and then to a 50% VentiMask, and now she is on a nonrebreather. She is saturating around 94% to 95% on the nonrebreather, having dropped down to 88% to 91% on a Venturi mask 50%. Her vital signs show a maximum temperature (Tmax) of 99.7 with a heart rate that ranges between 102 and 97 in a sinus rhythm, respiratory rate of 24-30 without the use of accessory muscles with the above saturations. Her blood pressure is ranging between 137/86 to 123/59. Her intake and output over the past 24 hours has been recorded as 1432 in and 1340 out for near equality. She has put out 190 mL from the chest tube. On the last 10 hours, she has only put out 25 mL. Her weight today is 122.6 kg, which is essentially the same as yesterday's of 122.5 kg but up from admission weight of 114 kg. On physical examination, she has coarse crackles throughout the right side on both expiration and inspiration. They do not clear with coughing. Percussion note is full to the diaphragm as far as I can tell from her morbid obesity. Left lung shows normal vesicular sounds, although there is some end expiratory wheezing. Percussion note is also full to the diaphragm on the left side. Cardiac examination is without murmurs, clicks, gallops, or rubs. I cannot feel her point of maximal impulse (PMI). S1 and S2 are normal. Abdomen: Is soft. Nontender. Bowel sounds are positive. There is no hepatomegaly. No costovertebral angle (CVA) tenderness. Extremities: Show 1+ pretibial edema. No calf tenderness. No differential swelling of the upper extremities. Skin: Is warm, dry, and perfused without cyanosis or mottling, including that of the nail beds and the knees. Neck: Is supple. There is no jugular venous distention. No subcutaneous emphysema. Trachea is midline. Mouth: Shows her mucous membranes to be pink and moist. Lips and commissures without lesions. There is no thrush. Eyes: Show her pupils to be equal and reactive. Extraocular motion intact. Sclerae anicteric. Neurologic: Shows II-XII intact, along with gross motor and gross sensation intact. Gait is not tested. Psychiatric: Shows her to be awake, alert, and oriented times three with appropriate mood and affect and conversational. Her white count today is up to 16.2 from 11.3 yesterday. Her hemoglobin and hematocrit are 10.4 and 31.9 up from 9.2 and 27.4. This may be secondary to hemoconcentration. Platelet count is 234. Differential shows 87% neutrophils, 3% lymphocytes, 5% monocytes. There are no immature forms and no toxic granulations reported. Her chemistries show a sodium of 132 unchanged from the last few days with a potassium of 4.6. BUN and creatinine are 45 and 1.39 up from 38 and 1.34 yesterday and 31 and 1.09 directly postoperative. Her creatinines do run preoperatively about 1.15. Calcium is 8.5 with a glucose of 178. I did increase the sliding scale yesterday. Her AST and ALT are 23 and 24, respectively. Albumin is 2.3 with an LDH of 255 and an alkaline phosphatase of 120. Her blood gases today at 4 this morning showed a pH of 7.41, a PCO2 of 37, a pO2 of only 55 compared to a pO2 of 85 on 06/01/2016, the day after surgery. Her base excess is -1.1. A chest x-ray done today PA and lateral shows an increasing opacity in the right lower lobe. She also has the same density around the right middle lobe, which may now represent a pneumonia. Certainly, the opacity in her lower lobe is distinctly different from yesterday's x-ray. It looks as though on the lateral view, there is a posterior lower lobe infiltrate. Chest tubes are still within the chest. The lung is fully expanded to the chest wall. I have gone over the pathology with Dr. Phillips. This now looks like it to be moderate differentiated adenocarcinoma with a measured dimension of 1.5 cm. All margins are clear, and the pleura is not invaded. All hilar, intrapulmonary, and mediastinal nodes are free of tumor. This makes her stage IA disease, [id number]. IMPRESSION: 1. Postoperative day #4, status post right upper lobectomy. 2. Stage IA adenocarcinoma. 3. Diabetes. 4. Hypertension. 5. Morbid obesity. 6. Chronic obstructive pulmonary disease (COPD). 7. Gout. 8. Depression. 9. Hyperlipidemia. 10. Possible postoperative pneumonia. 11. Renal failure. PLAN AND DISCUSSION: Concerning that she is requiring more oxygen and becoming more hypoxic and the fact that she now has a posterior infiltrate, I have to assume that this represents a pneumonia. I am going to, therefore, start her on Levaquin and vancomycin. She is allergic to PENICILLINS. I was going to take her chest tubes today, as they drained so little, but I want to wait another day or so to make sure she does not develop increased output from a potential infection. I have asked Dr. Daley to look at her, and he is going to start her on a pulse of steroids. I did give her Lasix earlier this morning, although I am not at all convinced that she is intravascularly wet. She certainly has increased interstitial fluid. I am stuck between a rock and a hard place with regard to her kidneys and diuresing her. I warned her that she may have to go back to the intensive care unit (ICU) and be placed on continuous bilateral positive airway pressure (BiPAP) if we do not get any response in the next few hours. We have got her on lung expansion therapy.
[2016-06-04] MEDS ORDERED: VANCOMYCIN HCL 750 MG, VIAL MATE ADAPTER 1 EACH in D5W 250 ML IV ONE (13:00)
[2016-06-04] MEDS: ATORVASTATIN 20 MG TAB PO SCH (20:30)
[2016-06-04] MEDS: ALLOPURINOL 100 MG TAB PO SCH (20:30)
[2016-06-04] MEDS: traZODone 50 MG TAB PO SCH (20:30)
[2016-06-04] MEDS: **NOTE PATIENT COMMENT** MISC XX SCH (20:31)
[2016-06-04] MEDS: FENTANYL/BUPIVACAINE/NACL CADD 250 ML EPIDURAL SCH (21:12)
[2016-06-05] VITALS (7 sets, daily range): BP systolic 128–145; BP diastolic 61–69; O2SAT 96
[2016-06-05] MEDS: VANCOMYCIN HCL 1,000 MG, VIAL MATE ADAPTER 1 EACH in D5W 250 ML IV SCH ×3 (01:11→23:48)
[2016-06-05] MEDS: LEVALBUTEROL 1.25 MG/0.5 ML CONCENTRATE NEB NEB SCH ×4 (01:49→19:16)
[2016-06-05] MEDS: methylPREDNISolone INJ 125 MG/2 ML VIAL (J2930) IV SCH ×2 (02:30→09:55)
[2016-06-05] MEDS: FENTANYL/BUPIVACAINE/NACL CADD 250 ML EPIDURAL SCH (03:18)
[2016-06-05] MEDS: LEVOTHYROXINE 0.05 MG TAB (50 MCG) PO SCH (05:50)
[2016-06-05 05:52] LABS: BASO % 0.1 % (0.0-1.0); LARGE UNSTAINED CELL # 0.1 K/mm3 (0.0-0.4); LARGE UNSTAINED CELL % 0.9 % (0.0-4.0); LYMPH # 0.4 K/mm3 (1.5-4.5); LYMPH % 2.4 % (24.0-44.0); MEAN CORPUSCULAR HEMOGLOBIN 29.1 pg (27.0-33.0); MEAN CORPUSCULAR HGB CONC 31.5 g/dl (32.0-36.5); MEAN CORPUSCULAR VOLUME 92.3 fl (80.0-96.0); MONO # 0.4 K/mm3 (0.0-0.8); MONO % 2.8 % (0.0-5.0); NEUTROPHILS # 13.5 K/mm3 (1.8-7.7); NEUTROPHILS % 93.7 % (36.0-66.0); PLATELET COUNT, AUTOMATED 234 k/mm3 (150-450); RED CELL DISTRIBUTION WIDTH 14.6 % (11.5-14.5); WHITE BLOOD COUNT 14.4 K/mm3 (4.0-10.0)
[2016-06-05 06:07] LABS: CALCIUM LEVEL 8.8 MG/DL (8.8-10.2); CREATININE FOR GFR 1.29 MG/DL (0.55-1.02); GLOMERULAR FILTRATION RATE 43.5 (>39); POTASSIUM SERUM 4.4 MEQ/L (3.5-5.1)
[2016-06-05] MEDS ORDERED: FUROSEMIDE 40 MG/4 ML VIAL (J1940) IV ONE (07:45)
[2016-06-05] MEDS: TIOTROPIUM INHALER/CAPSULE (SPIRIVA) INH SCH (07:59)
[2016-06-05] MEDS: ADVAIR DISKUS 500/50 INH PWD INH SCH ×2 (07:59→19:15)
[2016-06-05] MEDS: LEVEMIR (INSULIN DETEMIR) 1 UNITS/0.01ML SC SCH ×2 (09:00→21:30)
[2016-06-05] MEDS: MOM 30ML SUSPENSION UDC PO SCH ×2 (09:00→09:49)
--- NOTE | 2016-06-05 09:14 | REP ---
Chest x-ray: Two views. History: Status post right upper lobectomy. Comparison study June 04, 2016. Findings: There are two right chest tubes remaining in place in the right hemithorax. The right hemidiaphragm is somewhat elevated as before. There is an area of pleural thickening along the right lateral chest wall and increased density is seen in the right hilar and infrahilar region in this post thoracotomy patient. There is some volume loss in the right hemithorax again seen. No new infiltrate is noted. Interstitial markings are a little prominent on the left. Heart size is borderline. Impression: Somewhat improved aeration on today's radiograph. Postoperative changes on the right. EKG monitoring electrodes, two right-sided chest tubes again noted. Epidural catheter no longer apparent. Signed by Haroldo Stokes MD 06/05/2016 10:30 A
[2016-06-05] MEDS: HumaLOG INSULIN (NovoLOG) PER UNIT SC SCH ×4 (09:47→21:30)
[2016-06-05] MEDS: DULoxetine 30 MG CAP (CYMBALTA) PO SCH (09:48)
[2016-06-05] MEDS: FERROUS GLUCONATE 324 MG TAB PO SCH (09:48)
[2016-06-05] MEDS: ASPIRIN 81 MG ENTERIC TAB PO SCH (09:48)
[2016-06-05] MEDS: DOCUSATE SODIUM 100 MG CAP PO SCH ×2 (09:48→21:27)
[2016-06-05] MEDS: FUROSEMIDE 40 MG TAB PO SCH (09:49)
[2016-06-05] MEDS: PERCOCET 5MG/325MG TAB PO PRN ×2 (09:51→21:30)
[2016-06-05] MEDS: CALCIUM/VITAMIN D 500 MG TAB PO SCH (09:52)
[2016-06-05] MEDS: guaiFENesin ER 600 MG TAB PO SCH ×2 (09:52→21:27)
[2016-06-05] MEDS: PANTOPRAZOLE 40MG TAB (PROTONIX) PO SCH (09:54)
[2016-06-05] MEDS: LISINOPRIL 10 MG TAB PO SCH (09:54)
[2016-06-05] MEDS: HEPARIN SOD (PORCINE) 5000 UNITS/ML VIAL SC SCH ×2 (09:54→21:30)
[2016-06-05] MEDS: LIDOCAINE 5% (LIDODERM) PATCH TD SCH (09:55)
[2016-06-05] MEDS: LevoFLOXacin IV 750 MG in APPROPRIATE DILUENT 1 EA IV SCH (12:07)
[2016-06-05] MEDS: FUROSEMIDE 20 MG TAB PO SCH (12:08)
--- NOTE | 2016-06-05 12:10 | IPN ---
DATE: 06/05/2016 This is now the fifth postoperative day for Mrs. Caal. She is clinically doing better today than yesterday. Her oxygen saturations are being maintained and her oxygen requirement has also decreased down to 2 liters nasal cannula and in fact, we even tried her on room air. Her pain is being well controlled and the epidural has been discontinued and her Srivastava also discontinued. Her vital signs show a T-max of 98.0 with a heart rate that ranges between 77 and 87 in a sinus rhythm with respiratory rate of 18-20 without the use of accessory muscles who is 93-90% saturated on 2 liters nasal cannula. She was 90% saturated on room air and she was placed back on 2 liters nasal cannula. Her blood pressure is ranging between 131/69 to 128/64. Her intake and output over the past 24 hours has been recorded as 1520 in and 1685 out for a negativity of 165 mL. Her chest tube output has only been 110 mL and there is no air leak. Urine output has increased to 1575 mL and she has taken in 1520 mL in oral intake. Her weight today is 121.6 kg compared to 122.6 kg yesterday. PHYSICAL EXAMINATION: Her lungs show equal breath sounds on either side. Percussion note is full to the diaphragm. She has inspiratory crackles throughout the right lung but particularly in the right lower base. Cardiac exam is without murmurs, clicks, gallops or rubs. I cannot feel her PMI through her morbid obesity. S1 and S2 are normal. Abdomen is soft, nontender, bowel sounds are positive. There is no hepatomegaly that I can feel through the morbid obesity and there is no CVA tenderness. Extremities show 1+ pretibial edema. No calf tenderness. No differential swelling of the upper extremities. Skin is warm, dry and perfused without cyanosis or mottling including that of the nail beds and knees. Neck is supple. There is no jugular venous distention. No subcutaneous emphysema. Trachea is midline. Mouth shows her mucous membranes to be pink and moist. Lips and commissures are without lesions. No thrush. Eyes show her pupils to be equal and reactive. Extraocular motor intact. Sclera anicteric. Neuro shows II through XII intact with gross motor and gross sensation intact. Gait is not tested. Psychiatric shows her to be awake and alert, oriented times three with appropriate mood and affect and conversational. White count today is down to 14.4 from 16.2 yesterday. Hemoglobin and hematocrit is 8.7 and 27.7 down from 10.4 and 31.9 I suspect secondary to her continued hemodilution being 3 liters ahead of us. Platelet count is 234 and differential shows 93% neutrophils, 2% lymphocytes, 2% monocytes. There are no immature forms or toxic granulations. Her electrolytes show continued sodium of 132 with a BUN and creatinine of 46 and 1.29 improved from 45 and 1.39 yesterday. There are no blood gases on her today. Her chest x-ray I think shows an improvement in the left lower lobe infiltrate and in the middle lobe infiltrate. While the infiltrates are still present, they are much less opaque. I can now clearly see the costophrenic angle on the right side. She has the pleural thickening and/or hematoma around the incision site. Chest tubes are in the chest. The lateral films in comparison to yesterday also looks as if the right lower lobe infiltrate is more lucent and less consolidated than yesterday. IMPRESSION: 1. Postoperative day number five status post right lower lobectomy. 2. Stage 1A adenocarcinoma. 3. Diabetes. 4. Hypertension. 5. Morbid obesity. 6. Chronic obstructive pulmonary disease (COPD). 7. Gout. 8. Depression. 9. Hyperlipidemia. 10. Possible postoperative pneumonia. 11. Renal failure, improving. PLAN AND DISCUSSION: I will remove her chest tubes today. I am gratified that she is feeling better and that her oxygen requirement is less. I did diurese her yesterday. I will again diurese her today as I did not do her kidneys much harm yesterday with the extra diuresis. We will continue her antibiotics. All cultures have been negative.
[2016-06-05] MEDS: methylPREDNISolone INJ 40 MG/1 ML VIAL (J2920) IV SCH (17:18)
[2016-06-05] MEDS: **NOTE PATIENT COMMENT** MISC XX SCH (21:00)
[2016-06-05] MEDS: ATORVASTATIN 20 MG TAB PO SCH (21:28)
[2016-06-05] MEDS: traZODone 50 MG TAB PO SCH (21:29)
[2016-06-05] MEDS: ALLOPURINOL 100 MG TAB PO SCH (21:30)
[2016-06-06] VITALS (18 sets, daily range): BP systolic 105–154; BP diastolic 51–100
[2016-06-06] MEDS: methylPREDNISolone INJ 40 MG/1 ML VIAL (J2920) IV SCH ×4 (02:00→18:15)
[2016-06-06] MEDS ORDERED: DIGOXIN INJ 0.5 MG/2 ML AMP (J1160) As Ordered ONE (02:14)
[2016-06-06] MEDS ORDERED: DIGOXIN INJ 0.5 MG/2 ML AMP (J1160) IV STA (02:16)
[2016-06-06] MEDS: PERCOCET 5MG/325MG TAB PO PRN ×5 (03:25→21:03)
[2016-06-06 05:52] LABS: BASO % 0.2 % (0.0-1.0); LARGE UNSTAINED CELL # 0.4 K/mm3 (0.0-0.4); LARGE UNSTAINED CELL % 2.4 % (0.0-4.0); LYMPH # 0.4 K/mm3 (1.5-4.5); LYMPH % 2.5 % (24.0-44.0); MEAN CORPUSCULAR HEMOGLOBIN 28.7 pg (27.0-33.0); MEAN CORPUSCULAR HGB CONC 31.7 g/dl (32.0-36.5); MEAN CORPUSCULAR VOLUME 90.3 fl (80.0-96.0); MONO % 6.3 % (0.0-5.0); NEUTROPHILS # 13.9 K/mm3 (1.8-7.7); NEUTROPHILS % 88.6 % (36.0-66.0); PLATELET COUNT, AUTOMATED 311 k/mm3 (150-450); RED CELL DISTRIBUTION WIDTH 14.4 % (11.5-14.5); WHITE BLOOD COUNT 15.6 K/mm3 (4.0-10.0)
[2016-06-06 06:02] LABS: CALCIUM LEVEL 9.2 MG/DL (8.8-10.2); CREATININE FOR GFR 1.11 MG/DL (0.55-1.02); GLOMERULAR FILTRATION RATE 51.7 (>39); POTASSIUM SERUM 4.1 MEQ/L (3.5-5.1)
[2016-06-06] MEDS: LEVOTHYROXINE 0.05 MG TAB (50 MCG) PO SCH (06:48)
[2016-06-06] MEDS ORDERED: FUROSEMIDE 40 MG/4 ML VIAL (J1940) IV ONE ×3 (07:15→17:45)
[2016-06-06 07:20] LABS: MAGNESIUM LEVEL 2.3 MG/DL (1.8-2.4)
[2016-06-06] MEDS: TIOTROPIUM INHALER/CAPSULE (SPIRIVA) INH SCH (07:31)
[2016-06-06] MEDS: ADVAIR DISKUS 500/50 INH PWD INH SCH ×2 (07:32→19:34)
[2016-06-06] MEDS: LEVALBUTEROL 1.25 MG/0.5 ML CONCENTRATE NEB NEB SCH ×3 (07:32→20:00)
[2016-06-06] MEDS: HumaLOG INSULIN (NovoLOG) PER UNIT SC SCH ×4 (07:37→21:00)
[2016-06-06] MEDS ORDERED: DIGOXIN INJ 0.5 MG/2 ML AMP (J1160) IV SCH (08:00)
[2016-06-06] MEDS: DULoxetine 30 MG CAP (CYMBALTA) PO SCH (08:08)
[2016-06-06] MEDS: DOCUSATE SODIUM 100 MG CAP PO SCH ×2 (08:08→21:03)
[2016-06-06] MEDS: CALCIUM/VITAMIN D 500 MG TAB PO SCH (08:09)
[2016-06-06] MEDS: FUROSEMIDE 40 MG TAB PO SCH (08:09)
[2016-06-06] MEDS: MOM 30ML SUSPENSION UDC PO SCH (08:09)
[2016-06-06] MEDS: ASPIRIN 81 MG ENTERIC TAB PO SCH (08:09)
[2016-06-06] MEDS: FERROUS GLUCONATE 324 MG TAB PO SCH (08:09)
[2016-06-06] MEDS: guaiFENesin ER 600 MG TAB PO SCH ×2 (08:09→21:02)
[2016-06-06] MEDS: HEPARIN SOD (PORCINE) 5000 UNITS/ML VIAL SC SCH ×2 (08:10→21:04)
[2016-06-06] MEDS: PANTOPRAZOLE 40MG TAB (PROTONIX) PO SCH (08:10)
[2016-06-06] MEDS: LISINOPRIL 10 MG TAB PO SCH (08:10)
[2016-06-06] MEDS: LEVEMIR (INSULIN DETEMIR) 1 UNITS/0.01ML SC SCH ×2 (08:11→21:00)
[2016-06-06] MEDS: LIDOCAINE 5% (LIDODERM) PATCH TD SCH (08:11)
[2016-06-06] MEDS: LevoFLOXacin IV 750 MG in APPROPRIATE DILUENT 1 EA IV SCH (10:29)
[2016-06-06] MEDS: DIGOXIN INJ 0.5 MG/2 ML AMP (J1160) IV SCH ×2 (10:29→14:50)
[2016-06-06 10:39] LABS: ABG BASE EXCESS -0.6 (-2.0-2.0); ABG HCO3 23.1 MEQ/L (22.0-26.0); ABG PARTIAL PRESSURE CO2 34.7 mmHg (35.0-45.0); ABG PARTIAL PRESSURE O2 54.2 mmHg (75.0-100.0); ABG STANDARD HCO3 23.8 MEQ/L (22.0-26.0); ABG TOTAL CO2 24.2 MEQ/L (23.0-31.0); ABG pH (ARTERIAL) 7.441 UNITS (7.350-7.450)
--- NOTE | 2016-06-06 10:58 | REP ---
PA and lateral chest: Comparisons 06/05/2016. The patient had a right upper lobectomy. There are surgical clips in the right hilus. The right hemidiaphragm is elevated and there is volume loss in the right hemithorax, all compatible with the surgical history. The two right thoracotomy tubes have been removed. There is a small right apical pneumothorax. Focal pleural thickening on the right lateral chest wall is again noted, unchanged. There is under aeration and the atelectasis in the lung bases bilaterally, unchanged. The cardiac size normal. The estela, mediastinum, and bony thorax are unremarkable. Signed by Alfred Michele MD 06/06/2016 10:49 A
[2016-06-06] MEDS: VANCOMYCIN HCL 1,000 MG, VIAL MATE ADAPTER 1 EACH in D5W 250 ML IV SCH (12:06)
[2016-06-06] MEDS: FUROSEMIDE 20 MG TAB PO SCH (12:08)
--- NOTE | 2016-06-06 12:40 | REP ---
PORTABLE CHEST: AP portable view of the chest is performed and compared to multiple prior exams, including exam earlier today at 9:18 a.m. and study of 06/05/2016. There appear to be developing infiltrates in both lung bases, left greater than right, with mild interstitial opacities in the right base superimposed on postsurgical changes. There are developing and interstitial and alveolar infiltrates in the left base. The cardiomediastinal silhouette is unchanged. IMPRESSION: Bibasilar interstitial infiltrates with alveolar infiltrate left base may represent developing pulmonary edema. Signed by Alfred Hughes MD 06/06/2016 02:34 P
--- NOTE | 2016-06-06 14:02 | IPN ---
DATE: 06/06/2016 This is now the 6th postoperative day for Mrs. Caal. She has had increasing hypoxia over this morning. In fact, I have received three calls from the progressive care unit (PCU) concerned about her hypoxia and increasing oxygen requirement, and I have decided to place her in the intensive care unit (ICU). Her vital signs show a maximum temperature (Tmax) of 96.4 with a heart rate that ranges between 93 and 99 in a sinus rhythm, respiratory rate of 22 to 28 prior to 12:00 o'clock today without the use of accessory muscles. She is recorded at breathing at 33, but on my examination she is more like 22 to 24. Her blood pressure is ranging between 132/62 to 145/67. She is 93% saturated now on a nonrebreathing of 100%. She was on BiPAP and high flow cannula at 8 liters. Her intake and output over the past 24 hours has been recorded as 2160 in and 2445 out for a negativity of only 285 mL. She has put out 2445 mL in urine and took in 1740 mL in oral intake. She weighs 122.8 kg today compared to 121.6 kg yesterday. PHYSICAL EXAMINATION: LUNGS: Show equal breath sounds on either sidee. She has bilateral crackles during inspiration and expiration. Percussion note is full to the diaphragm as far as I can tell with her morbid obesity. CARDIAC: Cardiac examination is without murmurs, clicks, gallops, or rubs. I cannot feel her point of maximal impulse (PMI). S1 and S2 are normal. ABDOMEN: Is soft. Nontender. Bowel sounds are positive. There is no hepatomegaly that I can feel through her obesity. No costovertebral angle (CVA) tenderness. EXTREMITIES: Show maybe trace pretibial edema. No calf tenderness. No differential swelling of the upper extremities. In some ways it is difficult to differentiate subcutaneous tissue from real edema. SKIN: Is warm, dry, and perfused without cyanosis or mottling, including that of the nail beds and the knees. NECK: Is supple. There is no jugular venous distention. No subcutaneous emphysema. Trachea is midline. MOUTH: Shows her mucous membranes to be pink and moist. Lips and commissures without lesions. There is no thrush. EYES: Show her pupils to be equal and reactive. Extraocular motion intact. Sclerae anicteric. NEUROLOGIC: Shows II-XII intact, along with gross motor and gross sensation intact. Gait is not tested. PSYCHIATRIC: Shows her to be awake, alert, and oriented times three with appropriate mood and affect and conversational. Last night, Ms. Caal also went into atrial fibrillation with rapid ventricular response, which responded to a loading dose of digoxin. Her white count today is 15.6, up from 14.4 yesterday. Hemoglobin and hematocrit are 9.1 and 28.8, improved from 8.7 and 27.7. Platelet count is 311. Her differential shows 88% neutrophils, 2% lymphocytes, 6% monocytes. There are no immature forms. No toxic granulations. Her electrolytes are essentially normal with a marginally low sodium of 134, which is improved over the last few days from 132. BUN and creatinine are 50 and 1.11, compared to 49 and 1.29 yesterday, and 45 and 1.39 the day before. Her glucose is 145 with a calcium of 9.2. Magnesium is 2.3. Vancomycin trough yesterday was 20.4, high and outside the therapeutic window. Her chest x-ray today shows her lung fully expanded to the chest wall. This is essentially unchanged from yesterday; however, the left lower lobe now has more of an infiltrative pattern. Costophrenic angles are sharp. There is a very small residual air space on the right side. She still has the chest wall thickening and perhaps pleural hematoma, which is unchanged. The consolidation of the right middle lobe looks to be much better. Lateral chest x-ray still shows the posterior infiltrates on the lateral film. I cannot tell if the appearance is referable to the right or left side, as both sides now have an infiltrate. IMPRESSION: 1. Postoperative day #6, status post right lower lobectomy. 2. Stage I adenocarcinoma. 3. Diabetes. 4. Hypertension. 5. Morbid obesity. 6. Chronic obstructive pulmonary disease (COPD). 7. Gout. 8. Depression. 9. Hyperlipidemia. 10. Postoperative pneumonia. 11. Renal failure, improving. 12. Anemia. PLAN AND DISCUSSION: I have moved her to the intensive care unit (ICU). She is now on 100% Venturi Mask. We will see how she does with that. She is quite reticent to wear a BiPAP mask. I am going to transfuse her and further diurese her, as her anemia may be contributing to her shortness of breath. It should be noted that her blood gases today show a pH of 7.44, PCO2 of 34 and a PO2 of 54, which are essentially the same as they were on 06/04/2016. Base excess is -.6
--- NOTE | 2016-06-06 14:53 | PHACANCOPD ---
PHARMACY VANCOMYCIN DOSING Pt Demographics Demographics Patient Age:70 , Weight:122.800 , Gender: female Adjusted Body Weight Date: 06/04/16, Adjusted Body Weight: [84.7] Kg Events Past 24 Hours Events Past 24 Hours: NO: Change in CrCl, Dialysis, Diuretic Therapy, Elevation in WBC, Fever, Other, Pending Diagnostics, Pending Procedures Vancomycin Vancomycin indication: Pneumonia Vancomycin Target Ranges: 10-20 mcg/ml Vancomycin Load Y/N: Yes Load Dose Date Time Vancomycin Load Dose: 1750mg Date: 06/04 Time: 1200 Vancomycin Dose Date: 06/04/16. Current Vancomycin Dose: [1gm IV q12h@12] Intermittent Dosing?: No Labs Labs Item Value Date Time Creatinine 1.22 MG/DL H 06/02/16 0409 Creatinine 1.34 MG/DL H 06/03/16 0446 Creatinine 1.39 MG/DL H 06/04/16 0318 Creatinine 1.29 MG/DL H 06/05/16 0521 Creatinine 1.11 MG/DL H 06/06/16 0511 White Blood Count 11.4 K/mm3 H 06/02/16 0409 White Blood Count 11.3 K/mm3 H 06/03/16 0446 White Blood Count 16.2 K/mm3 H 06/04/16 0318 White Blood Count 14.4 K/mm3 H 06/05/16 0521 White Blood Count 15.6 K/mm3 H 06/06/16 0511 Vital Signs Label Value Date Time Patient Temperature 96.3 degrees F 06/06/16 0800 Temperature Source Tympanic 06/06/16 0800 Micro Microbiology 06/04/16 Blood Culture - Preliminary, Resulted No Growth after 48 hours. All Specime... 06/02/16 MRSA Screen - Final, Complete 05/31/16 MRSA Screen - Final, Complete 06/04/16 Urine Culture - Final, Complete Yeast Like Organism Creatinine Clearance Date:06/04/16. Creatinine Clearance: [55ML/MIN.]. Assessment and Plan Maintaining Current Dose?: No Reason for dose change: Trough too high Pharmacist Note Pharmacist Note Date: 06/06/16. Pharmacist note: PT trough value came back today at 20.4 at 11: 02. Creatinine clearance has slightly improved to 20.4ml/min, vancomycin half- life estimated in this patient to be ~14 hours. To lower the trough, dosing is being changed to 750mg q12h starting at 0200. Date: 06/04/16. Pharmacist note: Patient was started on Vancomycin and Levaquin for treatment of Pneumonia. She has no history of Vancomycin use at our facility. She has had a history of both MSSA AND MRSA. Patient was loaded on Vancomycin 1750mg then continued on Vancomycin 1gm IV q12h. We will continue to monitor and make adjustments as necessary. CHEYANNE HUNT PHARMACY Jun 06, 2016 14:53
--- NOTE | 2016-06-06 18:35 | ECGEPIP ---
Stationary ECG Study [facility] Test Date: 2016-06-06 Pat Name: PINEDA VALDERRAMA Department: Room: [place] [address] Gender: F [employer] Administrator: TUTU : 1945 Requested By: Tim Montes Order Number: [id number] Reading MD: Jojo Baptiste Measurements Intervals [place] Rate: 181 P: CO: 0 QRS: 68 QRSD: 78 T: -5 QT: 239 QTc: 415 Interpretive Statements ATRIAL FIBRILLATION WITH RAPID VENTRICULAR RESPONSE LOW QRS VOLTAGE IN PRECORDIAL LEADS NONSPECIFIC ST & T-WAVE ABNORMALITY SINCE 05/28/16 ATRIAL FIBRILLATION IS NEW Electronically Signed On 06-06-2016 18:35:06 EST by Jojo Baptiste
--- NOTE | 2016-06-06 18:39 | CCN ---
DATE: 06/06/2016 Time: 5:30 p.m. CRITICAL CARE NOTE I was called to evaluate the patient at bedside for increasing heart rate, increasing respiratory rate and falling oxygen saturations. She apparently had similar problems earlier in the day and they have now progressed. She is on her continuous positive airway pressure (CPAP) device with 15 liters bled through the system. Her temperature is 99, pulse rate 131, respirations 40, blood pressure 120/74. HEENT: There is no stridor. Her oral mucosa is pink. Jugular veins are difficult to appreciate; neck is quite hayes. Heart: Sounds are regular, distant. Breath sounds diminished with rales bilaterally. Abdomen is soft and obese. Extremities: Pulses are palpable times four. DIAGNOSTIC STUDIES: Chest x-ray performed at 12:20 today shows changes of interstitial edema to my eye. Arterial blood gases showed a pH of 7.44, pCO2 34, pO2 54. The primary problem requiring critical attention is acute hypoxic respiratory failure. The patient has received Lasix but does not have a Srivastava catheter in place. Would place a Srivastava catheter for close monitoring and after a blood transfusion, which is currently infusing, is complete will give an additional dose of Lasix. We will also check BMP on morning lab studies. To more closely monitor the patient's respiratory status, we will change from a CPAP device to an noninvasive ventilator using her same CPAP mask. This will allow us to monitor minute ventilation and administer a specific FiO2. Tachycardia. I suspect that this is a secondary event. We will treat the underlying problem. If the heart rate further increases or should she change to atrial fibrillation, additional Lanoxin may be necessary. The patient's condition is critical. Prognosis is guarded. 47 minutes was spent in the provision of bedside critical care and coordination.
[2016-06-06] MEDS: **NOTE PATIENT COMMENT** MISC XX SCH (21:00)
[2016-06-06] MEDS: ATORVASTATIN 20 MG TAB PO SCH (21:03)
[2016-06-06] MEDS: traZODone 50 MG TAB PO SCH (21:03)
[2016-06-06] MEDS: ALLOPURINOL 100 MG TAB PO SCH (21:03)
[2016-06-07 00:01] VITALS: BP 118/58
[2016-06-07] MEDS: VANCOMYCIN HCL 750 MG, VIAL MATE ADAPTER 1 EACH in D5W 250 ML IV SCH ×2 (01:58→13:15)
[2016-06-07] MEDS: methylPREDNISolone INJ 40 MG/1 ML VIAL (J2920) IV SCH ×3 (01:58→17:34)
[2016-06-07] MEDS: LEVALBUTEROL 1.25 MG/0.5 ML CONCENTRATE NEB NEB SCH ×4 (02:00→20:00)
[2016-06-07 04:00] VITALS: BP 156/70
[2016-06-07] MEDS ORDERED: SLF 3 ML SYR IV PRN (04:30)
[2016-06-07 05:48] LABS: ALBUMIN 1.9 GM/DL (3.2-5.2); ALBUMIN/GLOBULIN RATIO 0.51 (1.00-1.93); ALKALINE PHOSPHATASE 129 U/L (45-117); ALT/SGPT 29 U/L (12-78); ANION GAP 11 MEQ/L (8-16); AST/SGOT 29 U/L (15-37); BILIRUBIN,TOTAL 0.5 MG/DL (0.2-1.0); BLOOD UREA NITROGEN 40 MG/DL (7-18); CALCIUM LEVEL 8.2 MG/DL (8.8-10.2); CARBON DIOXIDE LEVEL 30 MEQ/L (21-32); CHLORIDE LEVEL 97 MEQ/L (98-107); CHOLESTEROL LEVEL 106 MG/DL (< 200); CREATININE FOR GFR 0.96 MG/DL (0.55-1.02); DIGOXIN LEVEL 1.4 NG/ML (0.5-2.0); GLOMERULAR FILTRATION RATE > 60.0 (>39); GLUCOSE, FASTING 100 MG/DL (83-110); PHOSPHORUS LEVEL 4.2 MG/DL (2.5-4.9); POTASSIUM SERUM 3.8 MEQ/L (3.5-5.1); SODIUM LEVEL 138 MEQ/L (136-145); TOTAL PROTEIN 5.6 GM/DL (6.4-8.2); TRIGLYCERIDES LEVEL 235 MG/DL (<150)
[2016-06-07] MEDS: LEVOTHYROXINE 0.05 MG TAB (50 MCG) PO SCH (06:03)
[2016-06-07] MEDS: SLF 3 ML SYR IV SCH ×3 (06:03→21:05)
[2016-06-07] MEDS: HumaLOG INSULIN (NovoLOG) PER UNIT SC SCH ×4 (07:30→21:03)
[2016-06-07] MEDS: TIOTROPIUM INHALER/CAPSULE (SPIRIVA) INH SCH (07:48)
[2016-06-07] MEDS: ADVAIR DISKUS 500/50 INH PWD INH SCH ×2 (07:48→23:24)
[2016-06-07 07:53] LABS: ABG BASE EXCESS 4.8 (-2.0-2.0); ABG DEVICE BIPAP; ABG HCO3 28.8 MEQ/L (22.0-26.0); ABG PARTIAL PRESSURE CO2 40.4 mmHg (35.0-45.0); ABG PARTIAL PRESSURE O2 61.5 mmHg (75.0-100.0); ABG STANDARD HCO3 28.7 MEQ/L (22.0-26.0); ABG pH (ARTERIAL) 7.471 UNITS (7.350-7.450)
[2016-06-07 08:00] VITALS: BP 151/65
[2016-06-07] MEDS: MOM 30ML SUSPENSION UDC PO SCH (08:04)
[2016-06-07] MEDS: guaiFENesin ER 600 MG TAB PO SCH ×2 (08:04→21:02)
[2016-06-07] MEDS: DOCUSATE SODIUM 100 MG CAP PO SCH ×2 (08:04→21:02)
[2016-06-07] MEDS: PANTOPRAZOLE 40MG TAB (PROTONIX) PO SCH (08:04)
[2016-06-07] MEDS: ASPIRIN 81 MG ENTERIC TAB PO SCH (08:04)
[2016-06-07] MEDS: LISINOPRIL 10 MG TAB PO SCH (08:05)
[2016-06-07] MEDS: HEPARIN SOD (PORCINE) 5000 UNITS/ML VIAL SC SCH ×2 (08:05→21:01)
[2016-06-07] MEDS: FUROSEMIDE 40 MG TAB PO SCH (08:05)
[2016-06-07] MEDS: CALCIUM/VITAMIN D 500 MG TAB PO SCH (08:12)
[2016-06-07] MEDS: FERROUS GLUCONATE 324 MG TAB PO SCH (08:12)
[2016-06-07] MEDS: DULoxetine 30 MG CAP (CYMBALTA) PO SCH (08:12)
[2016-06-07] MEDS: LIDOCAINE 5% (LIDODERM) PATCH TD SCH (08:12)
[2016-06-07] MEDS: DIGOXIN 0.25 MG TAB PO SCH (08:13)
[2016-06-07 08:21] LABS: MEAN CORPUSCULAR HEMOGLOBIN 29.1 pg (27.0-33.0); MEAN CORPUSCULAR HGB CONC 32.8 g/dl (32.0-36.5); MEAN CORPUSCULAR VOLUME 88.9 fl (80.0-96.0); PLATELET COUNT, AUTOMATED 332 k/mm3 (150-450); WHITE BLOOD COUNT 18.8 K/mm3 (4.0-10.0)
[2016-06-07 08:49] LABS: BANDS 7 % (< 11); TOXIC GRANULATION 1+
[2016-06-07 08:50] LABS: ANISOCYTOSIS 1+; POLYCHROMASIA 1+
[2016-06-07] MEDS: LEVEMIR (INSULIN DETEMIR) 1 UNITS/0.01ML SC SCH ×2 (09:00→21:04)
[2016-06-07] MEDS: LevoFLOXacin IV 750 MG in APPROPRIATE DILUENT 1 EA IV SCH (10:09)
[2016-06-07] MEDS ORDERED: FUROSEMIDE 40 MG/4 ML VIAL (J1940) IV ONE (10:45)
[2016-06-07] MEDS: FUROSEMIDE 20 MG TAB PO SCH (11:27)
--- NOTE | 2016-06-07 11:32 | REP ---
Portable chest x-ray: Single view. History: Status post right upper lobectomy. Findings: EKG monitoring electrodes overlie the chest along with oxygen delivery tubing. Mild cardiomegaly is observed. Right hemidiaphragm is elevated and there is overall volume loss in the right hemithorax. There is an infiltrate in the left base again noted. Increased markings in the right base are seen. Interstitial markings and vascular markings are diffusely prominent. There is little change when compared with the prior study from June 06, 2016. Signed by Haroldo Stokes MD 06/07/2016 11:46 A
[2016-06-07 13:00] VITALS: BP 149/69
[2016-06-07] MEDS: PERCOCET 5MG/325MG TAB PO PRN ×3 (13:16→21:11)
[2016-06-07 13:25] VITALS: BP 146/69
[2016-06-07 13:44] LABS: POTASSIUM SERUM 3.5 MEQ/L (3.5-5.1)
--- NOTE | 2016-06-07 14:34 | IPN ---
DATE: 06/07/2016 This is now the 7th postoperative day for Mrs. Caal. Last night she required more oxygen and BiPAP. Dr. Fritz saw her and continued to diurese her. Today , she is slightly better, although she is still on BiPAP and dependent upon it. Her intake and output are negative today. Her vital signs show a maximum temperature (Tmax) of 99.9 with a heart rate that ranges between 86 and 105 in a sinus rhythm. She has been in and out of atrial fibrillation, responding to digoxin. Respiratory rate is 26 to 40, although she is not using accessory muscles, most likely secondary to the BiPAP. She is 91 to 88% saturated on her BiPAP at 40% FiO2. Blood pressure is ranging between 129/ 71 to 118/58. Her intake and output over the past 24 hours has been recorded as 2370 in and 4500 out for a negativity of only 2130 mL. She has put out 500 mL in urine output. Her weight today has finally come down to 120.4 from 122.8. Prior to that she had been going up continually. PHYSICAL EXAMINATION: LUNGS: Show bilateral crackles on either side during inspiration. Percussion note is full to the diaphragm as far as I can tell through her morbid obesity. CARDIAC: Cardiac examination is without murmurs, clicks, gallops, or rubs. Heart sounds are distant. I cannot feel her point of maximal impulse (PMI). S1 and S2 are normal. ABDOMEN: Is soft. Nontender. Bowel sounds are positive. There is no hepatomegaly that I can feel through her morbid obesity. There is no costovertebral angle (CVA) tenderness. EXTREMITIES: Show maybe 1+ pretibial edema. No calf tenderness. No differential swelling of the upper extremities. SKIN: Is warm, dry, and perfused without cyanosis or mottling, including that of the nail beds and the knees. NECK: Is supple. There is no jugular venous distention. No subcutaneous emphysema. Trachea is midline. MOUTH: Shows her mucous membranes to be pink and moist. Lips and commissures without lesions. There is no thrush. EYES: Show her pupils to be equal and reactive. Extraocular motion intact. Sclerae anicteric. NEUROLOGIC: Shows II-XII intact, along with gross motor and gross sensation intact. Gait is not tested. Her white count today is 18.8 from 15.6 yesterday and 16.2 on 06/04/2016. Hemoglobin and hematocrit are 10.7 and 32.6, up from 9.1 and 28.6, hopefully secondary to hemoconcentration. Platelet count is 332 and stable. Differential shows 81% neutrophils, 7% bands, 7% lymphocytes, 4% monocytes. Most notably, toxic granulations are reported on this specimen. Her electrolytes are essentially normal with a BUN and creatinine of 40 and 0.96. Glucose is 100 with a calcium of 8.2 and albumin 1.9, down from 2.3 on 06/04/2016. Her BNP is 463, which is elevated above the normal range of less than 100. Her digoxin level was 1.4 today with a vancomycin trough of 20.4, just slightly outside the therapeutic window. Urinalysis taken from the [facility] is negative for leukocyte esterase but notable for 1+ urine bacteria but no white cells. Her chest x-ray today done portably, she cannot go downstairs as she is dependent on the CPAP, shows lungs fully expanded to the chest wall. There is still a lot of infiltrative opacities in both lungs, in both the right side and the left side. There looks to be an area of consolidation in the left lower lobe near the costophrenic angle. Costophrenic angles can be seen and they are sharp. There is obligate volume loss from the lobectomy on the right side. IMPRESSION: 1. Postoperative day #7, status post right lower lobectomy. 2. Stage I adenocarcinoma. 3. Diabetes. 4. Hypertension. 5. Morbid obesity. 6. Chronic obstructive pulmonary disease (COPD). 7. Gout. 8. Depression. 9. Hyperlipidemia. 10. Postoperative pneumonia. 11. Renal failure, improving. 12. Anemia. 13. Possible heart failure. PLAN AND DISCUSSION: We are continuing to diurese her. I am very worried that her rising white count, along with the left shift and now the toxic granulations. She is on levofloxacin and vancomycin. That should cover everything except Pseudomonas. There are no positive cultures back on her and she does not expectorate anything to give us a proper sputum sample. She should remain on the BiPAP today. As noted above, we will continue to diurese her. MTDD
--- NOTE | 2016-06-07 18:34 | ECGEPIP ---
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
[2016-06-07 20:00] VITALS: BP 134/61
[2016-06-07] MEDS: traZODone 50 MG TAB PO SCH (21:02)
[2016-06-07] MEDS: ATORVASTATIN 20 MG TAB PO SCH (21:02)
[2016-06-07] MEDS: ALLOPURINOL 100 MG TAB PO SCH (21:03)
[2016-06-07] MEDS: **NOTE PATIENT COMMENT** MISC XX SCH (21:04)
[2016-06-08] VITALS: BP 131/89
[2016-06-08] MEDS ORDERED: POTASSIUM CHLORIDE 10 MEQ SR TABLET PO ONE
[2016-06-08] MEDS: LEVALBUTEROL 1.25 MG/0.5 ML CONCENTRATE NEB NEB SCH ×4 (01:51→21:00)
[2016-06-08] MEDS: VANCOMYCIN HCL 750 MG, VIAL MATE ADAPTER 1 EACH in D5W 250 ML IV SCH ×2 (02:02→13:54)
[2016-06-08] MEDS: methylPREDNISolone INJ 40 MG/1 ML VIAL (J2920) IV SCH ×3 (02:02→17:15)
[2016-06-08] MEDS: PERCOCET 5MG/325MG TAB PO PRN ×3 (03:32→21:23)
[2016-06-08 04:00] VITALS: BP 160/65
[2016-06-08 05:16] LABS: MEAN CORPUSCULAR HEMOGLOBIN 28.7 pg (27.0-33.0); MEAN CORPUSCULAR HGB CONC 30.9 g/dl (32.0-36.5); MEAN CORPUSCULAR VOLUME 92.8 fl (80.0-96.0); PLATELET COUNT, AUTOMATED 324 k/mm3 (150-450); RED CELL DISTRIBUTION WIDTH 14.6 % (11.5-14.5); WHITE BLOOD COUNT 16.7 K/mm3 (4.0-10.0)
[2016-06-08 05:18] LABS: ALBUMIN 1.6 GM/DL (3.2-5.2); ALBUMIN/GLOBULIN RATIO 0.33 (1.00-1.93); BILIRUBIN,TOTAL 0.6 MG/DL (0.2-1.0); CALCIUM LEVEL 8.2 MG/DL (8.8-10.2); CREATININE FOR GFR 1.05 MG/DL (0.55-1.02); GLOMERULAR FILTRATION RATE 55.2 (>39); PHOSPHORUS LEVEL 4.4 MG/DL (2.5-4.9); POTASSIUM SERUM 4.2 MEQ/L (3.5-5.1); TOTAL PROTEIN 6.4 GM/DL (6.4-8.2)
[2016-06-08 06:15] LABS: ANISOCYTOSIS 1+; BANDS 2 % (< 11)
[2016-06-08] MEDS: LEVOTHYROXINE 0.05 MG TAB (50 MCG) PO SCH (06:43)
[2016-06-08] MEDS: SLF 3 ML SYR IV SCH ×3 (06:44→21:25)
[2016-06-08 08:00] VITALS: BP 142/63
[2016-06-08] MEDS: TIOTROPIUM INHALER/CAPSULE (SPIRIVA) INH SCH (08:00)
--- NOTE | 2016-06-08 08:24 | REP ---
PORTABLE CHEST X-RAY: Single view. HISTORY: Followup CT. Comparison chest x-ray June 07, 2016. FINDINGS: Mild cardiomegaly is observed. Patchy areas of pulmonary parenchymal opacity are seen in the left base and right apex consistent with infiltrates. The left base is unchanged. The right apical opacity was not visible yesterday although the area was overlain by oxygen delivery equipment. Pleural angles are sharp. Right hemidiaphragm remains somewhat elevated. IMPRESSION: Bilateral infiltrates. Signed by Haroldo Stokes MD 06/08/2016 10:06 A
[2016-06-08] MEDS: CALCIUM/VITAMIN D 500 MG TAB PO SCH (08:35)
[2016-06-08] MEDS: DULoxetine 30 MG CAP (CYMBALTA) PO SCH (08:35)
[2016-06-08] MEDS: FERROUS GLUCONATE 324 MG TAB PO SCH (08:35)
[2016-06-08] MEDS: HEPARIN SOD (PORCINE) 5000 UNITS/ML VIAL SC SCH ×2 (08:35→21:25)
[2016-06-08] MEDS: DIGOXIN 0.25 MG TAB PO SCH (08:36)
[2016-06-08] MEDS: guaiFENesin ER 600 MG TAB PO SCH ×2 (08:36→21:24)
[2016-06-08] MEDS: LISINOPRIL 10 MG TAB PO SCH (08:36)
[2016-06-08] MEDS: FUROSEMIDE 40 MG TAB PO SCH (08:36)
[2016-06-08] MEDS: DOCUSATE SODIUM 100 MG CAP PO SCH ×2 (08:36→21:23)
[2016-06-08] MEDS: ASPIRIN 81 MG ENTERIC TAB PO SCH (08:36)
[2016-06-08] MEDS: HumaLOG INSULIN (NovoLOG) PER UNIT SC SCH ×4 (08:37→21:11)
[2016-06-08] MEDS: LEVEMIR (INSULIN DETEMIR) 1 UNITS/0.01ML SC SCH ×2 (08:37→21:25)
[2016-06-08] MEDS: LIDOCAINE 5% (LIDODERM) PATCH TD SCH (08:38)
[2016-06-08] MEDS: PANTOPRAZOLE 40MG TAB (PROTONIX) PO SCH (08:44)
[2016-06-08] MEDS: NORCO, ANEXSIA 5/325MG TABLET (HYDROcodone/ACETAMINOPHEN) PO PRN (08:44)
[2016-06-08] MEDS: MOM 30ML SUSPENSION UDC PO SCH (08:56)
[2016-06-08] MEDS: LevoFLOXacin IV 750 MG in APPROPRIATE DILUENT 1 EA IV SCH (10:05)
--- NOTE | 2016-06-08 10:14 | REP ---
CHEST X-RAY: Two views. HISTORY: Pneumonia. Comparison study June 08, 2016. FINDINGS: There is a patchy infiltrate in the left base. Patchy consolidation is seen in the right base and right apex. In the right apex, there is an air-fluid level on today's radiograph indicating a cavitary component. Right hemidiaphragm remains elevated. Mild cardiomegaly is observed. No new consolidation is seen. IMPRESSION: Bilateral infiltrates. Air-fluid level in the right apex indicates a cavitary lesion versus a small loculated hydropneumothorax. Signed by Haroldo Stokes MD 06/08/2016 10:55 A
[2016-06-08] MEDS ORDERED: FUROSEMIDE 100 MG/10 ML VIAL (J1940) IV ONE (11:00)
[2016-06-08] MEDS: FUROSEMIDE 20 MG TAB PO SCH (11:26)
[2016-06-08 12:00] VITALS: BP 131/62
--- NOTE | 2016-06-08 12:37 | IPN ---
DATE: 06/08/2016 This is now the eighth postoperative day for Mrs. Caal. She is still requiring BiPAP but between BiPAP, she is at face mask of 40% . Her vital signs show a T-max of 98.9, with a heart rate that ranges between 91 and 89 in sinus rhythm. Yesterday, she went up to 162 in rapid atrial fibrillation, which she spontaneously resolved herself. She is 90 to 88% saturation on 40% BiPAP. Her respiratory rate varies between 22 and 34 without the use of accessory muscles. Blood pressures range between 60/55 to 149/69. Her intake and output over the past 24 hours has been recorded as 1630 in and 3710 out for a negativity of 200 mL. She has taken in 1200 mL by mouth intake. All of her chest tubes are out and all of her output is in urine of 3710 mL. She weighs 119.6 kilograms today, 120.4 kilograms yesterday. Her admission weight was 114 kilograms. On physical examination, she still has inspiratory crackles at both bases. These do not clear with coughing. Percussion note is full to the diaphragm. Cardiac exam is without murmurs, clicks, gallops or rubs. I cannot feel her point of maximum impulse (PMI) due to the morbid obesity. S1 and S2 are normal. Heart sounds are distant. Abdomen is soft and nontender. Bowel sounds are positive. There is no hepatomegaly. No CVA tenderness that I can appreciate. Extremities show 1+ pretibial edema with no calf tenderness. No differential swelling of the upper extremities. Skin is warm, dry and perfused without cyanosis or mottling including that of the nail beds and knees. Neck is supple. There is no jugular venous distention. No subcutaneous emphysema. Trachea is midline. Mouth shows his mucous membranes to be pink and moist. Lips and commissures are without lesions. There is no thrush. Eyes show her pupils to be equal and reactive. Extraocular movements intact. Sclerae nonicteric. Neurologic shows II-XII intact along with gross motor and gross sensation intact. Gait is not tested. Psychiatric showed him to be awake, alert and oriented times three with appropriate and affect and conversational. Her white count today is 16.7, down from 18.8 yesterday. Hemoglobin and hematocrit are 10.5 and 34.0 a change from 10.7 yesterday. Platelet count is 324 and stable. Differential shows 90% neutrophils, 2% bands compared to 7% bands yesterday, 2% lymphocytes and 6% monocytes. There are toxic granulocytes reported today. Her chemistries show essentially normal electrolytes with a BUN and creatinine of 40 and 1.05, essentially unchanged from yesterdays at 0.96. Glucose is 234 with a calcium of 8.2. Albumin is down to 1.6 from 1.9 yesterday. AST and ALT are normal. Her chest x-ray done PA and lateral today shows an increasing infiltrate in the right lower lobe. Left lower lobe looks to be clearing. This does not look like pulmonary edema. The costophrenic angles are sharp. The lateral films shows opacity of the posterior lower hemithorax from a dense infiltrate which is worse than it was on 06/06/2016. IMPRESSION: 1. Postoperative day #8 status post right lower lobectomy. 2. Stage I A adenocarcinoma. 3. Diabetes. 4. Hypertension. 5. Morbid obesity. 6. COPD. 7. Gout. 8. Depression. 9. Hyperlipidemia. 10. Right lower lobe improved. 11. Postoperative pneumonia, left lower lobe worse. 12. Renal failure, improved. 13. Anemia, improved with transfusion. 14. Possible heart failure. PLAN AND DISCUSSION: We will continue supporting her. I will again diurese her today. She is continued on the same antibiotics. She has not been able to expectorate any sputum for culture. She is still not at all out of the mace, although her white count is at least coming down. Left shift is not as great as it was with only two immature forms. Toxic granulations have receded.
[2016-06-08] MEDS: ADVAIR DISKUS 500/50 INH PWD INH SCH ×2 (13:30→20:59)
[2016-06-08 16:00] VITALS: BP 145/65
[2016-06-08 20:00] VITALS: BP 148/65
[2016-06-08] MEDS: ATORVASTATIN 20 MG TAB PO SCH (21:23)
[2016-06-08] MEDS: traZODone 50 MG TAB PO SCH (21:24)
[2016-06-08] MEDS: ALLOPURINOL 100 MG TAB PO SCH (21:24)
[2016-06-08] MEDS: **NOTE PATIENT COMMENT** MISC XX SCH (21:25)
[2016-06-09] VITALS (7 sets, daily range): BP systolic 128–171; BP diastolic 60–74; O2SAT 90
[2016-06-09] MEDS: LEVALBUTEROL 1.25 MG/0.5 ML CONCENTRATE NEB NEB SCH ×4 (01:24→20:00)
[2016-06-09] MEDS: methylPREDNISolone INJ 40 MG/1 ML VIAL (J2920) IV SCH ×2 (02:32→14:14)
[2016-06-09] MEDS: VANCOMYCIN HCL 750 MG, VIAL MATE ADAPTER 1 EACH in D5W 250 ML IV SCH ×2 (02:32→14:14)
[2016-06-09 04:55] LABS: ALBUMIN 1.7 GM/DL (3.2-5.2); ALBUMIN/GLOBULIN RATIO 0.34 (1.00-1.93); BILIRUBIN,TOTAL 0.4 MG/DL (0.2-1.0); CALCIUM LEVEL 8.8 MG/DL (8.8-10.2); CREATININE FOR GFR 1.07 MG/DL (0.55-1.02); PHOSPHORUS LEVEL 3.2 MG/DL (2.5-4.9); POTASSIUM SERUM 3.8 MEQ/L (3.5-5.1); TOTAL PROTEIN 6.7 GM/DL (6.4-8.2)
[2016-06-09 04:58] LABS: MEAN CORPUSCULAR HEMOGLOBIN 29.4 pg (27.0-33.0); MEAN CORPUSCULAR HGB CONC 32.7 g/dl (32.0-36.5); MEAN CORPUSCULAR VOLUME 89.9 fl (80.0-96.0); PLATELET COUNT, AUTOMATED 350 k/mm3 (150-450); RED CELL DISTRIBUTION WIDTH 14.3 % (11.5-14.5); WHITE BLOOD COUNT 20.8 K/mm3 (4.0-10.0)
[2016-06-09 05:54] LABS: BANDS 4 % (< 11)
[2016-06-09] MEDS: SLF 3 ML SYR IV SCH ×3 (06:09→20:21)
[2016-06-09] MEDS: LEVOTHYROXINE 0.05 MG TAB (50 MCG) PO SCH (06:09)
[2016-06-09] MEDS: ADVAIR DISKUS 500/50 INH PWD INH SCH ×2 (08:06→20:52)
[2016-06-09] MEDS: MOM 30ML SUSPENSION UDC PO SCH (09:00)
[2016-06-09] MEDS: LIDOCAINE 5% (LIDODERM) PATCH TD SCH (09:14)
[2016-06-09] MEDS: LEVEMIR (INSULIN DETEMIR) 1 UNITS/0.01ML SC SCH ×2 (09:15→20:20)
[2016-06-09] MEDS: HumaLOG INSULIN (NovoLOG) PER UNIT SC SCH ×4 (09:15→20:20)
[2016-06-09] MEDS: FERROUS GLUCONATE 324 MG TAB PO SCH (09:16)
[2016-06-09] MEDS: FUROSEMIDE 40 MG TAB PO SCH (09:16)
[2016-06-09] MEDS: DULoxetine 30 MG CAP (CYMBALTA) PO SCH (09:16)
[2016-06-09] MEDS: CALCIUM/VITAMIN D 500 MG TAB PO SCH (09:16)
[2016-06-09] MEDS: DOCUSATE SODIUM 100 MG CAP PO SCH ×2 (09:16→20:13)
[2016-06-09] MEDS: PANTOPRAZOLE 40MG TAB (PROTONIX) PO SCH (09:16)
[2016-06-09] MEDS: HEPARIN SOD (PORCINE) 5000 UNITS/ML VIAL SC SCH ×2 (09:16→20:14)
[2016-06-09] MEDS: ASPIRIN 81 MG ENTERIC TAB PO SCH (09:17)
[2016-06-09] MEDS: LISINOPRIL 10 MG TAB PO SCH (09:17)
[2016-06-09] MEDS: DIGOXIN 0.25 MG TAB PO SCH (09:17)
[2016-06-09] MEDS: guaiFENesin ER 600 MG TAB PO SCH ×2 (09:17→20:14)
[2016-06-09] MEDS: NORCO, ANEXSIA 5/325MG TABLET (HYDROcodone/ACETAMINOPHEN) PO PRN (09:21)
--- NOTE | 2016-06-09 10:01 | REP ---
CHEST X-RAY: Two views. HISTORY: Status post right upper lobectomy. Comparison radiograph June 08, 2016. FINDINGS: Bilateral infiltrates persist in the bases and in the right upper lobe. Small right upper lobe air fluid level is again seen unchanged from yesterday's radiograph. No new infiltrate is seen. Heart size is unchanged. Right hemidiaphragm remains elevated. There are clips in the right hilar region. IMPRESSION: Fairly extensive bilateral infiltrates persist. Air-fluid level in the right apex unchanged. Signed by Haroldo Stokes MD 06/09/2016 11:02 A
[2016-06-09] MEDS: LevoFLOXacin IV 750 MG in APPROPRIATE DILUENT 1 EA IV SCH (10:04)
[2016-06-09] MEDS: TIOTROPIUM INHALER/CAPSULE (SPIRIVA) INH SCH (10:15)
--- NOTE | 2016-06-09 11:39 | IPN ---
DATE: 06/09/2016 This is now the ninth postoperative day for Mrs. Caal. She is sitting comfortably at the edge of the bed, however, she gets very short of breath with any activity. This mimics her baseline status that she was prior to her procedure. In fact, I was quite worried about her doing the procedure as she physiologically looked worse than her pulmonary function tests. We attributed her shortness of breath secondary to all the weight that she has to move around. Her vital signs show a T-max of 97.3, with a heart rate that ranges between 70 and 83 in sinus rhythm, respiratory rate of 26 to 32 without the use of accessory muscles, who is 91 to 90% saturated on 8 liters nasal cannula. Her blood pressures range between 128/60 to 153/67. Her intake and output over the past 24 hours has been recorded as 35 for quality. She has taken in 2700 mL in by mouth intake and 845 mL in IV intake for the antibiotics. Her weight today is 118.8 kilograms compared to 119.6 kilograms yesterday On physical examination she still has crackles in the right lower hemithorax during all of inspiration. Percussion note is full to the diaphragm. Left lung shows normal vesicular sounds. Cardiac exam is without murmurs, clicks, gallops or rubs. I cannot feel her point of maximum impulse (PMI). S1 and S2 are normal. Heart sounds are very distant secondary to obesity. Abdomen is soft and nontender. Bowel sounds are positive. There is no hepatomegaly that I can feel through her obesity. No CVA tenderness. Extremities show 1+ pretibial edema in the left and trace on the right. There is no calf tenderness. No differential swelling of the upper extremities. Skin is warm, dry and perfused without cyanosis or mottling including that of the nail beds and knees. Neck is supple. There is no jugular venous distention. No subcutaneous emphysema. Trachea is midline. Mouth shows her mucous membranes to be pink and moist. Lips and commissures are without lesions. There is no thrush. Eyes show her pupils to be equal and reactive. Extraocular movements intact. Sclerae nonicteric. Neurologic shows II-XII intact along with gross motor and gross sensation intact. Gait is not tested. Psychiatric showed him to be awake, alert and oriented times three with appropriate and affect and conversational. Her white count today is up to 20.5 from 16.7 yesterday. Hemoglobin and hematocrit 11.6 and 35.6, improved from 10.5 and 34.0 yesterday. Platelet count is 350 and her differential shows 86% neutrophils, 4% bands, 2% lymphocytes. There are no toxic granulations again reported today. Her electrolytes shows a potassium of 3.8, I will supplement more as I am going to continue to diurese her. Her BUN and creatinine are 40 and 1.07 unchanged from yesterday. Her total CO2 is 38. Glucose is 194 with a calcium of 8.8 and a corresponding albumin of 1.7. I will draw a magnesium tomorrow. Her magnesium was 2.0 on 06/07/2016. She has not had any runs of atrial fibrillation over the past 24 hours. Vancomycin trough yesterday was 13.8 within the therapeutic window. Her chest x-ray today is essentially unchanged. There is still both a right and left lower hemithorax infiltrate. The right lower lobe infiltrate may be less opacified today, although I suspect I can assign that to exposure differences. The lateral film is unchanged with the posterior and inferior infiltrates. IMPRESSION: 1. Postoperative day #9 status post right lower lobectomy. 2. Stage I adenocarcinoma. 3. Diabetes. 4. Hypertension. 5. Morbid obesity. 6. COPD. 7. Depression. 8. Hyperlipidemia. 9. Right lower lobe pneumonia. 10. Left lower lobe pneumonia. 11. Renal failure, improved 12. Anemia, improved. 13. Possible heart failure. PLAN AND DISCUSSION: I will again diurese her vigorously today. I have also decreased her steroids from 40 every 8 hours to 20 every 12 hours. That may be contributing to her increased white count. Will continue her on antibiotics. Her vancomycin level is within the therapeutic window.
[2016-06-09] MEDS: FUROSEMIDE 20 MG TAB PO SCH (12:48)
[2016-06-09] MEDS ORDERED: FUROSEMIDE 100 MG/10 ML VIAL (J1940) IV ONE (16:00)
[2016-06-09] MEDS: traZODone 50 MG TAB PO SCH (20:13)
[2016-06-09] MEDS: PERCOCET 5MG/325MG TAB PO PRN (20:13)
[2016-06-09] MEDS: ATORVASTATIN 20 MG TAB PO SCH (20:14)
[2016-06-09] MEDS: ALLOPURINOL 100 MG TAB PO SCH (20:14)
[2016-06-09] MEDS: **NOTE PATIENT COMMENT** MISC XX SCH (20:21)
[2016-06-10] VITALS (8 sets, daily range): BP systolic 134–169; BP diastolic 62–74; O2SAT 90
[2016-06-10] MEDS: LEVALBUTEROL 1.25 MG/0.5 ML CONCENTRATE NEB NEB SCH ×4 (01:29→20:00)
[2016-06-10] MEDS: VANCOMYCIN HCL 750 MG, VIAL MATE ADAPTER 1 EACH in D5W 250 ML IV SCH ×2 (03:19→14:44)
[2016-06-10] MEDS: methylPREDNISolone INJ 40 MG/1 ML VIAL (J2920) IV SCH ×2 (03:20→14:44)
[2016-06-10 04:42] LABS: MEAN CORPUSCULAR HEMOGLOBIN 28.9 pg (27.0-33.0); MEAN CORPUSCULAR HGB CONC 32.3 g/dl (32.0-36.5); MEAN CORPUSCULAR VOLUME 89.5 fl (80.0-96.0); PLATELET COUNT, AUTOMATED 328 k/mm3 (150-450); WHITE BLOOD COUNT 21.4 K/mm3 (4.0-10.0)
[2016-06-10 04:56] LABS: ANION GAP 9 MEQ/L (8-16); BLOOD UREA NITROGEN 45 MG/DL (7-18); CALCIUM LEVEL 8.6 MG/DL (8.8-10.2); CARBON DIOXIDE LEVEL 39 MEQ/L (21-32); CHLORIDE LEVEL 91 MEQ/L (98-107); CREATININE FOR GFR 0.97 MG/DL (0.55-1.02); GLOMERULAR FILTRATION RATE > 60.0 (>39); GLUCOSE, FASTING 86 MG/DL (83-110); POTASSIUM SERUM 3.5 MEQ/L (3.5-5.1); SODIUM LEVEL 139 MEQ/L (136-145)
[2016-06-10 05:20] LABS: BANDS 5 % (< 11); NUCLEATED RED BLOOD CELL 1 % (0-0)
[2016-06-10 05:22] LABS: ANISOCYTOSIS 1+
[2016-06-10] MEDS: LEVOTHYROXINE 0.05 MG TAB (50 MCG) PO SCH (05:47)
[2016-06-10] MEDS: SLF 3 ML SYR IV SCH ×3 (05:48→22:00)
[2016-06-10] MEDS: HumaLOG INSULIN (NovoLOG) PER UNIT SC SCH ×4 (06:41→20:52)
[2016-06-10] MEDS: ADVAIR DISKUS 500/50 INH PWD INH SCH ×2 (07:49→19:44)
[2016-06-10] MEDS: TIOTROPIUM INHALER/CAPSULE (SPIRIVA) INH SCH (07:49)
--- NOTE | 2016-06-10 09:23 | REP ---
CHEST X-RAY, PA AND LATERAL: 06/10/2016. Comparison: 06/09/2016, 06/08/2016, portable chest 06/08/2016, 06/07/2016. Clinical history: Status post right upper lobectomy, follow-up infiltrates and apical hydropneumothorax. Findings. The bilateral basilar infiltrates again noted with patchy nodular infiltrates in the right upper lung zone also identified. There is an air-fluid level in the right apex with a vertical height of 2.6 cm and this is unchanged from yesterday. No definite effusion on the lateral view. The cardiomediastinal silhouette unchanged. There is slightly prominent heart size. Some venous hypertension is difficult to exclude. No solo edema. Impression: 1. Apical hydropneumothorax unchanged with fairly extensive bibasilar infiltrates and patchy right upper lung zone nodular infiltrates, no change from yesterday. Signed by Tyrone Bean MD 06/10/2016 10:24 A
[2016-06-10] MEDS: NORCO, ANEXSIA 5/325MG TABLET (HYDROcodone/ACETAMINOPHEN) PO PRN (09:37)
[2016-06-10] MEDS: ASPIRIN 81 MG ENTERIC TAB PO SCH (09:37)
[2016-06-10] MEDS: HEPARIN SOD (PORCINE) 5000 UNITS/ML VIAL SC SCH ×2 (09:37→20:51)
[2016-06-10] MEDS: CALCIUM/VITAMIN D 500 MG TAB PO SCH (09:37)
[2016-06-10] MEDS: DOCUSATE SODIUM 100 MG CAP PO SCH ×2 (09:37→20:50)
[2016-06-10] MEDS: FERROUS GLUCONATE 324 MG TAB PO SCH (09:38)
[2016-06-10] MEDS: LISINOPRIL 10 MG TAB PO SCH (09:38)
[2016-06-10] MEDS: DIGOXIN 0.25 MG TAB PO SCH (09:38)
[2016-06-10] MEDS: DULoxetine 30 MG CAP (CYMBALTA) PO SCH (09:38)
[2016-06-10] MEDS: PANTOPRAZOLE 40MG TAB (PROTONIX) PO SCH (09:38)
[2016-06-10] MEDS: LIDOCAINE 5% (LIDODERM) PATCH TD SCH (09:39)
[2016-06-10] MEDS: POTASSIUM CHLORIDE 10 MEQ SR TABLET PO SCH ×2 (09:39→20:48)
[2016-06-10] MEDS: guaiFENesin ER 600 MG TAB PO SCH ×2 (09:39→20:50)
[2016-06-10] MEDS: FUROSEMIDE 40 MG TAB PO SCH (09:39)
[2016-06-10] MEDS: MOM 30ML SUSPENSION UDC PO SCH (09:41)
[2016-06-10] MEDS: LevoFLOXacin IV 750 MG in APPROPRIATE DILUENT 1 EA IV SCH (11:02)
[2016-06-10] MEDS: FUROSEMIDE 20 MG TAB PO SCH (12:48)
--- NOTE | 2016-06-10 13:44 | IPN ---
DATE: 06/10/2016 This is now the 10th postoperative day for Mrs. Caal. She used continuous positive airway pressure (CPAP) last night with decreased saturations but not symptomatic. Her white count is again up today and her chest x-ray is unchanged, showing infiltrates in both lower lobes. I am still quite worried about her. Her vital signs show a maximum temperature (t-max) of 97.7 with a heart rate that ranges between 72 and 81 in a sinus rhythm. There has been no return of her rapid ventricular response to atrial fibrillation. Respiratory rate is 16 to 20 without the use of accessory muscles, and she is 93% saturated on 5 liters nasal cannula this afternoon. Her blood pressure is ranging between 162/69 to 148/85. PHYSICAL EXAMINATION: LUNGS: Her lungs show bilateral inspiratory crackles on either side with the right greater than the left. Percussion note is full to the diaphragm. CARDIAC: Cardiac exam is without murmurs, clicks, gallops or rubs. I cannot feel her point of maximum impulse (PMI). S1 and S2 are normal. ABDOMEN: Soft and nontender. Bowel sounds are positive. I cannot feel hepatomegaly through her obesity. There is no costovertebral angle tenderness. EXTREMITIES: Show now trace to 1+ pretibial edema. No calf tenderness. No differential swelling of the upper extremities. Skin is warm, dry and perfused without cyanosis or mottling, including that of the nail beds and knees. NECK: Neck is supple. There is no jugular venous distention. No subcutaneous emphysema. Trachea is midline. MOUTH: Shows her mucous membranes to be pink and moist. Lips and commissures are without lesions. There is no thrush. EYES: Show her pupils to be equal and reactive. Extraocular movements intact. Sclerae nonicteric. NEUROLOGIC: Shows II-XII intact along with gross motor and gross sensation intact. Gait is not tested. PSYCHIATRIC: Shows her to be awake, alert and oriented times three with appropriate and affect and conversational. Her white count today is up to 21.4 from 20.8 yesterday. Hemoglobin and hematocrit are 11.4 and 35.2, unchanged from yesterday with a platelet count of 328, also unchanged from yesterday. Differential shows 82% neutrophils, 5% bands, 5% lymphocytes and 7% monocytes. There are no toxic granulations however today. Her band count has been going up from 2 to 4 to 5 over the last few days. Her electrolytes show a potassium of 3.5, which I have replaced. BUN and creatinine are 45 and 0.97. Glucose is 86 with a calcium of 8.6. Vancomycin trough was 13.8, within the therapeutic window. Her chest x-ray today is, as noted above, essentially unchanged. She shows bilateral infiltrates on both the right and left sides, which is essentially unchanged from yesterday. There may be something developing in the apical basilar segment of the remaining lower lobe. IMPRESSION: 1. Postoperative day #10 status post right lower lobectomy. 2. Stage I adenocarcinoma. 3. Diabetes. 4. Hypertension. 5. Morbid obesity. 6. Chronic obstructive pulmonary disease (COPD). 7. Depression. 8. Hyperlipidemia. 9. Right lower lobe pneumonia. 10. Left lower lobe pneumonia. 11. Renal failure, resolved. 12. Anemia, improved. 13. Possible heart failure. PLAN AND DISCUSSION: We will continue to support her. She is now able to expectorate sputum and we will now send that off for culture, prior she was not able to expectorate. She continues on the same antibiotics of Levaquin and vancomycin. I will also continue to diurese her today.
[2016-06-10] MEDS ORDERED: FUROSEMIDE 100 MG/10 ML VIAL (J1940) IV ONE (16:00)
[2016-06-10] MEDS: PERCOCET 5MG/325MG TAB PO PRN ×2 (18:08→21:51)
[2016-06-10] MEDS: ATORVASTATIN 20 MG TAB PO SCH (20:50)
[2016-06-10] MEDS: ALLOPURINOL 100 MG TAB PO SCH (20:51)
[2016-06-10] MEDS: traZODone 50 MG TAB PO SCH (20:51)
[2016-06-10] MEDS: LEVEMIR (INSULIN DETEMIR) 1 UNITS/0.01ML SC SCH (20:52)
[2016-06-10] MEDS: **NOTE PATIENT COMMENT** MISC XX SCH (20:52)
[2016-06-11] VITALS (9 sets, daily range): BP systolic 143–158; BP diastolic 64–70; O2SAT 91
[2016-06-11] MEDS: LEVALBUTEROL 1.25 MG/0.5 ML CONCENTRATE NEB NEB SCH ×4 (01:55→20:00)
[2016-06-11] MEDS: methylPREDNISolone INJ 40 MG/1 ML VIAL (J2920) IV SCH ×2 (02:09→14:00)
[2016-06-11] MEDS: VANCOMYCIN HCL 750 MG, VIAL MATE ADAPTER 1 EACH in D5W 250 ML IV SCH ×2 (02:09→14:01)
[2016-06-11] MEDS: PERCOCET 5MG/325MG TAB PO PRN ×4 (02:09→18:14)
[2016-06-11 05:18] LABS: MEAN CORPUSCULAR HEMOGLOBIN 28.6 pg (27.0-33.0); MEAN CORPUSCULAR HGB CONC 31.3 g/dl (32.0-36.5); MEAN CORPUSCULAR VOLUME 91.4 fl (80.0-96.0); PLATELET COUNT, AUTOMATED 288 k/mm3 (150-450); RED CELL DISTRIBUTION WIDTH 14.4 % (11.5-14.5); WHITE BLOOD COUNT 22.1 K/mm3 (4.0-10.0)
[2016-06-11 05:21] LABS: CALCIUM LEVEL 8.5 MG/DL (8.8-10.2); CREATININE FOR GFR 1.01 MG/DL (0.55-1.02); GLOMERULAR FILTRATION RATE 57.7 (>39); POTASSIUM SERUM 3.9 MEQ/L (3.5-5.1)
[2016-06-11] MEDS: LEVOTHYROXINE 0.05 MG TAB (50 MCG) PO SCH (06:14)
[2016-06-11] MEDS: SLF 3 ML SYR IV SCH ×3 (06:14→21:06)
[2016-06-11 06:20] LABS: BANDS 3 % (< 11)
[2016-06-11 06:22] LABS: ANISOCYTOSIS 1+
[2016-06-11] MEDS: HumaLOG INSULIN (NovoLOG) PER UNIT SC SCH ×4 (07:41→21:05)
[2016-06-11] MEDS: TIOTROPIUM INHALER/CAPSULE (SPIRIVA) INH SCH (07:58)
[2016-06-11] MEDS: ADVAIR DISKUS 500/50 INH PWD INH SCH ×2 (07:58→20:09)
[2016-06-11] MEDS: MOM 30ML SUSPENSION UDC PO SCH (09:05)
[2016-06-11] MEDS: LIDOCAINE 5% (LIDODERM) PATCH TD SCH (09:05)
[2016-06-11] MEDS: FLUCONAZOLE 200 MG in APPROPRIATE DILUENT 1 EA IV SCH (09:05)
[2016-06-11] MEDS: LEVEMIR (INSULIN DETEMIR) 1 UNITS/0.01ML SC SCH ×2 (09:06→20:57)
[2016-06-11] MEDS: DIGOXIN 0.25 MG TAB PO SCH (09:06)
[2016-06-11] MEDS: PANTOPRAZOLE 40MG TAB (PROTONIX) PO SCH (09:06)
[2016-06-11] MEDS: guaiFENesin ER 600 MG TAB PO SCH ×2 (09:06→20:56)
[2016-06-11] MEDS: POTASSIUM CHLORIDE 10 MEQ SR TABLET PO SCH ×2 (09:07→20:55)
[2016-06-11] MEDS: FERROUS GLUCONATE 324 MG TAB PO SCH (09:07)
[2016-06-11] MEDS: CALCIUM/VITAMIN D 500 MG TAB PO SCH (09:07)
[2016-06-11] MEDS: FUROSEMIDE 40 MG TAB PO SCH (09:07)
[2016-06-11] MEDS: LISINOPRIL 10 MG TAB PO SCH (09:07)
[2016-06-11] MEDS: DOCUSATE SODIUM 100 MG CAP PO SCH ×2 (09:07→20:55)
[2016-06-11] MEDS: ASPIRIN 81 MG ENTERIC TAB PO SCH (09:07)
[2016-06-11] MEDS: DULoxetine 30 MG CAP (CYMBALTA) PO SCH (09:07)
[2016-06-11] MEDS: HEPARIN SOD (PORCINE) 5000 UNITS/ML VIAL SC SCH ×2 (09:08→20:56)
--- NOTE | 2016-06-11 10:33 | REP ---
Sitting AP view. History: Shortness of breath and hypoxia. Comparison chest x-ray June 10, 2016. Findings: Right hemidiaphragm is elevated as before. EKG monitoring electrodes are seen. Patchy bibasilar infiltrates are again seen. Right upper lobe infiltrate is again noted. No pneumothorax is seen. No definite hydrothorax noted. Impression: Patchy bilateral infiltrates unchanged. Signed by Haroldo Stokes MD 06/11/2016 02:33 P
[2016-06-11] MEDS: LevoFLOXacin IV 750 MG in APPROPRIATE DILUENT 1 EA IV SCH (10:53)
--- NOTE | 2016-06-11 11:38 | REP ---
CHEST, TWO VIEWS: HISTORY: Pneumonia. COMPARISON: 10:11 a.m. 06/11/2016. There is elevation of the right hemidiaphragm. Bilateral lower lobe and right upper lobe infiltrates are present. The left lower lobe infiltrate is increased compared to the previous study. The right upper and lower lobe infiltrates are unchanged. The heart is normal in size. The pulmonary vasculature is normal in appearance. The bony structure is intact. IMPRESSION: 1. Bibasilar infiltrates increased on the left compared to the previous study. 2. Right upper lobe infiltrate, unchanged compared to the previous study. Signed by Bassam Cook MD 06/11/2016 11:46 A
[2016-06-11] MEDS: FUROSEMIDE 20 MG TAB PO SCH (11:51)
[2016-06-11] MEDS ORDERED: FUROSEMIDE 100 MG/10 ML VIAL (J1940) IV ONE (16:00)
--- NOTE | 2016-06-11 16:08 | IPN ---
DATE: 06/11/2016 This is now the 11th postoperative day for Ms. Caal. She is feeling better today. Her white count, however, still continues to climb. She has been up and out of bed, in fact, walking. She clinically looks a lot better today than she did yesterday. Her vital signs show a T-max of 97.5 with a heart rate that ranges between 77 and 72 in a sinus rhythm. There has been no repeat of her rapid ventricular response with atrial fibrillation. Respiratory rate is 16 to 18 without the use of accessory muscles. She is 91 to 92% saturated, down to 3 liters nasal cannula. Her blood pressure is ranging between 143/69 to 151/69. Her intake and output the past 24 hours has been recorded at 2780 in and 3825 out for a negativity of 1000 mL. She has put out 3825 mL in urine. She has taken in 1805 mL in by mouth (p.o.) intake. Her weight today is 117.7 kg compared to 117.3 kg yesterday. On physical examination she her lungs still show bibasilar inspiratory crackles. They are not as prominent as they were yesterday particularly on the right hand side. Percussion note is full to the diaphragm. Cardiac exam is without murmurs, clicks, gallops or rubs. I cannot feel her point of maximal impulse (PMI) through her morbid obesity. S1 and S2 are normal. Abdomen is soft and nontender. Bowel sounds are positive. There is no hepatomegaly. No costovertebral angle (CVA) tenderness. Extremities show no pretibial edema. No calf tenderness. No differential swelling of the upper extremities. Skin is warm, dry and perfused without cyanosis or mottling including that of the nail beds and the knees. Neck is supple. There is no jugular venous distention. No subcutaneous emphysema. Trachea is midline. Mouth shows her mucous membranes to be pink and moist. Lips and commissures are without lesions. No thrush. Eyes show her pupils to be equal and reactive. Extraocular muscles are intact. Sclera anicteric. Neuro shows II through XII intact. Gross motor and gross sensation intact. Gait is not tested. Psychiatric shows her to be awake, alert and oriented times three with appropriate mood, affect and conversational. Her white count is up to 22.1 from 21.4 yesterday. Hemoglobin and hematocrit is 11.0 and 35.2, unchanged from yesterday with a platelet count of 288, which is now starting to go down. Differential shows 75% neutrophils, 3% bands, 12% lymphocytes, 9% monocytes and 1% metamyelocytes. Her chemistries today show normal electrolytes except for an increased total CO2 of 40. BUN and creatinine are 38 and 1.01 with a glucose of 131 and calcium 8.5. My suspicion is that the diuresis is causing her CO2 to increase. Her microbiology shows a yeastlike organism in her urine. Her sputum culture is pending, but gram stain shows many gram positive cocci in clusters and chains with a few gram positive rods. Her chest x-ray shows the lung again fully expanded to the chest wall. She has bibasilar infiltrates. It is essentially unchanged over the last few days. There may be more infiltrative pattern in the apical basilar segment of lower lobe additionally. The lateral chest x-ray shows the same posterior pattern, but looks to be less today than it was yesterday. IMPRESSION: 1. Postoperative day #11, status post right upper lobectomy. 2. Stage IA adenocarcinoma. 3. Diabetes. 4. Hypertension. 5. Morbid obesity. 6. Chronic obstructive pulmonary disease (COPD). 7. Depression. 8. Hyperlipidemia. 9. Right lower lobe pneumonia. 10. Left lower lobe pneumonia. 11. Renal failure, resolved. 12. Anemia, improved. 13. Possible heart failure. PLAN AND DISCUSSION: I will continue her on antibiotics. I will also continue to diurese her. Her dry weight on admission was 114 kg and she is now 117. I am gratified that clinically she looks better although I am still very worried about her white count. I decreased her steroids yesterday, but I will not do that until tomorrow again.
[2016-06-11] MEDS: ALLOPURINOL 100 MG TAB PO SCH (20:55)
[2016-06-11] MEDS: ATORVASTATIN 20 MG TAB PO SCH (20:56)
[2016-06-11] MEDS: traZODone 50 MG TAB PO SCH (20:56)
[2016-06-11] MEDS: **NOTE PATIENT COMMENT** MISC XX SCH (21:00)
[2016-06-12] VITALS (7 sets, daily range): BP systolic 143–171; BP diastolic 63–69; O2SAT 97
[2016-06-12] MEDS: LEVALBUTEROL 1.25 MG/0.5 ML CONCENTRATE NEB NEB SCH ×4 (01:11→20:00)
[2016-06-12] MEDS: VANCOMYCIN HCL 750 MG, VIAL MATE ADAPTER 1 EACH in D5W 250 ML IV SCH ×2 (02:18→13:54)
[2016-06-12] MEDS: methylPREDNISolone INJ 40 MG/1 ML VIAL (J2920) IV SCH ×2 (02:18→13:54)
[2016-06-12 04:55] LABS: MEAN CORPUSCULAR HEMOGLOBIN 28.4 pg (27.0-33.0); MEAN CORPUSCULAR VOLUME 91.5 fl (80.0-96.0); PLATELET COUNT, AUTOMATED 251 k/mm3 (150-450); RED CELL DISTRIBUTION WIDTH 14.7 % (11.5-14.5); WHITE BLOOD COUNT 19.8 K/mm3 (4.0-10.0)
[2016-06-12 05:04] LABS: ANION GAP 6 MEQ/L (8-16); BLOOD UREA NITROGEN 33 MG/DL (7-18); CALCIUM LEVEL 8.5 MG/DL (8.8-10.2); CARBON DIOXIDE LEVEL 39 MEQ/L (21-32); CHLORIDE LEVEL 93 MEQ/L (98-107); CREATININE FOR GFR 0.94 MG/DL (0.55-1.02); GLOMERULAR FILTRATION RATE > 60.0 (>39); GLUCOSE, FASTING 151 MG/DL (83-110); POTASSIUM SERUM 4.6 MEQ/L (3.5-5.1); SODIUM LEVEL 138 MEQ/L (136-145)
[2016-06-12 05:48] LABS: BANDS 1 % (< 11); EOSINOPHILS 1 % (0-5)
[2016-06-12] MEDS: LEVOTHYROXINE 0.05 MG TAB (50 MCG) PO SCH (06:02)
[2016-06-12] MEDS: SLF 3 ML SYR IV SCH ×3 (06:02→20:10)
[2016-06-12] MEDS: HumaLOG INSULIN (NovoLOG) PER UNIT SC SCH ×4 (07:30→20:07)
[2016-06-12] MEDS: TIOTROPIUM INHALER/CAPSULE (SPIRIVA) INH SCH (08:09)
[2016-06-12] MEDS: ADVAIR DISKUS 500/50 INH PWD INH SCH ×2 (08:10→20:42)
[2016-06-12] MEDS: MOM 30ML SUSPENSION UDC PO SCH (08:16)
[2016-06-12] MEDS: HEPARIN SOD (PORCINE) 5000 UNITS/ML VIAL SC SCH ×2 (08:16→20:08)
[2016-06-12] MEDS: LIDOCAINE 5% (LIDODERM) PATCH TD SCH (08:16)
[2016-06-12] MEDS: LEVEMIR (INSULIN DETEMIR) 1 UNITS/0.01ML SC SCH ×2 (08:17→20:07)
[2016-06-12] MEDS: FLUCONAZOLE 200 MG in APPROPRIATE DILUENT 1 EA IV SCH (08:18)
[2016-06-12] MEDS: DOCUSATE SODIUM 100 MG CAP PO SCH ×2 (08:19→20:09)
[2016-06-12] MEDS: FUROSEMIDE 40 MG TAB PO SCH (08:19)
[2016-06-12] MEDS: DULoxetine 30 MG CAP (CYMBALTA) PO SCH (08:19)
[2016-06-12] MEDS: PANTOPRAZOLE 40MG TAB (PROTONIX) PO SCH (08:19)
[2016-06-12] MEDS: FERROUS GLUCONATE 324 MG TAB PO SCH (08:19)
[2016-06-12] MEDS: guaiFENesin ER 600 MG TAB PO SCH ×2 (08:19→20:09)
[2016-06-12] MEDS: CALCIUM/VITAMIN D 500 MG TAB PO SCH (08:19)
[2016-06-12] MEDS: ASPIRIN 81 MG ENTERIC TAB PO SCH (08:19)
[2016-06-12] MEDS: LISINOPRIL 10 MG TAB PO SCH (08:20)
[2016-06-12] MEDS: DIGOXIN 0.25 MG TAB PO SCH (08:20)
[2016-06-12] MEDS: POTASSIUM CHLORIDE 10 MEQ SR TABLET PO SCH ×2 (08:21→20:08)
--- NOTE | 2016-06-12 08:47 | REP ---
PA and lateral chest: Comparison is a 06/11 2016. There are bibasilar infiltrates and there is a right upper lobe infiltrate. These are unchanged. Left upper lobe is clear. Cardiac size normal. Slight effacement right costophrenic angle suggestive of a small right pleural effusion, unchanged. Impression: There is no interval change. Signed by Alfred Michele MD 06/12/2016 08:38 A
[2016-06-12] MEDS: FUROSEMIDE 20 MG TAB PO SCH (11:02)
[2016-06-12] MEDS: LevoFLOXacin IV 750 MG in APPROPRIATE DILUENT 1 EA IV SCH (11:02)
--- NOTE | 2016-06-12 11:50 | IPN ---
DATE: 06/12/2016 This is now the 12th postoperative day for Mrs. Caal. She feels much better today, and is breathing better. She was even able to walk around the room today without getting unduly short of breath. Her vital signs show a maximum temperature (Tmax) of 97.4 with a heart rate that ranges between 62-78 in a sinus rhythm, respiratory rate of 18-16 without the use of accessory muscles, who is 94% saturated on 3 liters nasal cannula, and whose blood pressure is ranging between 150/67 to 171/67. Her intake and output for the past 24 hours has been recorded as 2195 in and 2975 out for a negativity of 780 mL. She weighs 117.8 kg today compared to 117.7 kg yesterday. On physical examination, her lungs still show bibasilar crackles but they are improving and are fainter. Percussion note is full to the diaphragm. Cardiac exam is without murmurs, clicks, gallops or rubs. I cannot feel her point of maximal impulse (PMI). S1 and S2 are normal. Abdomen is soft and nontender. Bowel sounds are positive. There is no hepatomegaly, no costovertebral angle (CVA) tenderness. Extremities show no pretibial edema, no calf tenderness. No differential swelling of the upper extremities. Skin is warm, dry and perfused without cyanosis or mottling including that of the nail beds and the knees. Neck is supple. There is no jugular venous distention, no subcutaneous emphysema. Trachea is midline. Mouth shows her mucous membranes to be pink and moist. Lips and commissures are without lesions. There is no thrush. Eyes show her pupils to be equal and reactive. Extraocular muscles are intact. Sclera anicteric. Neuro shows II-XII intact along with gross motor and gross sensation intact. Gait is not tested. Psychiatric shows her to be awake and alert, oriented times three with appropriate mood, affect and conversational. Her white count for the first time in 4 days has decreased down to 19.8 from 22.1 yesterday. Hemoglobin and hematocrit is 11.3 and 36.4, slightly improved from yesterday's of 11.0 and 35.2, probably secondary to hemoconcentration. Platelet count is 251. Differential shows 83% neutrophils, 1% bands, 11% lymphocytes, 1% monocytes. There are no immature forms and no toxic granulations. Her bandemia has decreased. Her electrolytes are normal except for a total CO2 that is elevated at 39. BUN and creatinine is 33 and 0.94 with a glucose of 151 and a calcium of 8.5. Her chest x-ray still shows the bilateral infiltrates, which is essentially unchanged from yesterday. Lung is fully expanded to the chest wall. Costophrenic angles are sharp. IMPRESSION: 1. Postoperative day #12, status post right upper lobectomy. 2. Stage 1 adenocarcinoma. 3. Diabetes. 4. Hypertension. 5. Morbid obesity. 6. Chronic obstructive pulmonary disease (COPD). 7. Depression. 8. Hyperlipidemia. 9. Right lower lobe pneumonia. 10. Bilateral pneumonias, right and left lower lobes. 11. Renal failure, resolved. 12. Anemia, improved. 13. Possible heart failure. PLAN AND DISCUSSION: I feel confident enough to send her to the progressive care unit (PCU) today. We will continue to diurese her. I am very gratified that her white count has come down and her oxygen requirement is coming down.
[2016-06-12] MEDS ORDERED: FUROSEMIDE 100 MG/10 ML VIAL (J1940) IV ONE (14:00)
[2016-06-12] MEDS: PERCOCET 5MG/325MG TAB PO PRN ×2 (16:20→20:37)
[2016-06-12] MEDS: traZODone 50 MG TAB PO SCH (20:08)
[2016-06-12] MEDS: ALLOPURINOL 100 MG TAB PO SCH (20:09)
[2016-06-12] MEDS: ATORVASTATIN 20 MG TAB PO SCH (20:09)
[2016-06-12] MEDS: **NOTE PATIENT COMMENT** MISC XX SCH (20:09)
[2016-06-13] VITALS: BP 133/60
[2016-06-13] MEDS: VANCOMYCIN HCL 750 MG, VIAL MATE ADAPTER 1 EACH in D5W 250 ML IV SCH ×2 (01:40→13:31)
[2016-06-13] MEDS: methylPREDNISolone INJ 40 MG/1 ML VIAL (J2920) IV SCH ×2 (01:40→13:30)
[2016-06-13] MEDS: LEVALBUTEROL 1.25 MG/0.5 ML CONCENTRATE NEB NEB SCH ×4 (02:00→20:00)
[2016-06-13 04:00] VITALS: BP 161/70
[2016-06-13 04:52] LABS: MEAN CORPUSCULAR HEMOGLOBIN 28.7 pg (27.0-33.0); MEAN CORPUSCULAR HGB CONC 31.2 g/dl (32.0-36.5); PLATELET COUNT, AUTOMATED 234 k/mm3 (150-450); RED CELL DISTRIBUTION WIDTH 14.7 % (11.5-14.5); WHITE BLOOD COUNT 20.4 K/mm3 (4.0-10.0)
[2016-06-13 04:54] LABS: ANION GAP 5 MEQ/L (8-16); BLOOD UREA NITROGEN 29 MG/DL (7-18); CALCIUM LEVEL 8.4 MG/DL (8.8-10.2); CARBON DIOXIDE LEVEL 36 MEQ/L (21-32); CHLORIDE LEVEL 95 MEQ/L (98-107); CREATININE FOR GFR 0.92 MG/DL (0.55-1.02); GLOMERULAR FILTRATION RATE > 60.0 (>39); GLUCOSE, FASTING 132 MG/DL (83-110); POTASSIUM SERUM 4.8 MEQ/L (3.5-5.1); SODIUM LEVEL 136 MEQ/L (136-145)
[2016-06-13] MEDS: SLF 3 ML SYR IV SCH ×3 (05:56→20:23)
[2016-06-13] MEDS: LEVOTHYROXINE 0.05 MG TAB (50 MCG) PO SCH (05:56)
[2016-06-13 07:25] LABS: BANDS 5 % (< 11); EOSINOPHILS 2 % (0-5)
[2016-06-13 07:26] LABS: ANISOCYTOSIS 1+
[2016-06-13 07:27] LABS: TOXIC GRANULATION 1+
[2016-06-13 08:00] VITALS: BP 158/70
--- NOTE | 2016-06-13 08:17 | REP ---
Chest x-ray: Two views. History: Pneumonia. Status post right upper lobectomy. Comparison study: June 12, 2016. Findings: There are areas of consolidation in the left base, right base, and right upper lung zone region. An air-fluid level persists in the right apex. Right hemidiaphragm is elevated. There are surgical clips in the right hilus. A right lateral rib fracture is again noted. Pulmonary parenchymal opacities are felt to be unchanged. Signed by Haroldo Stokes MD 06/13/2016 08:20 A
[2016-06-13] MEDS: HumaLOG INSULIN (NovoLOG) PER UNIT SC SCH ×4 (08:24→20:22)
[2016-06-13] MEDS: LEVEMIR (INSULIN DETEMIR) 1 UNITS/0.01ML SC SCH ×2 (08:24→20:23)
[2016-06-13] MEDS: LIDOCAINE 5% (LIDODERM) PATCH TD SCH (08:25)
[2016-06-13] MEDS: HEPARIN SOD (PORCINE) 5000 UNITS/ML VIAL SC SCH ×2 (08:25→20:22)
[2016-06-13] MEDS: DOCUSATE SODIUM 100 MG CAP PO SCH ×2 (08:25→20:21)
[2016-06-13] MEDS: DULoxetine 30 MG CAP (CYMBALTA) PO SCH (08:25)
[2016-06-13] MEDS: CALCIUM/VITAMIN D 500 MG TAB PO SCH (08:26)
[2016-06-13] MEDS: FUROSEMIDE 40 MG TAB PO SCH (08:26)
[2016-06-13] MEDS: FERROUS GLUCONATE 324 MG TAB PO SCH (08:26)
[2016-06-13] MEDS: guaiFENesin ER 600 MG TAB PO SCH ×2 (08:26→20:21)
[2016-06-13] MEDS: PANTOPRAZOLE 40MG TAB (PROTONIX) PO SCH (08:27)
[2016-06-13] MEDS: ASPIRIN 81 MG ENTERIC TAB PO SCH (08:27)
[2016-06-13] MEDS: LISINOPRIL 10 MG TAB PO SCH (08:27)
[2016-06-13] MEDS: DIGOXIN 0.25 MG TAB PO SCH (08:27)
[2016-06-13] MEDS: POTASSIUM CHLORIDE 10 MEQ SR TABLET PO SCH ×2 (08:28→20:21)
[2016-06-13] MEDS: MOM 30ML SUSPENSION UDC PO SCH (08:28)
[2016-06-13] MEDS: TIOTROPIUM INHALER/CAPSULE (SPIRIVA) INH SCH (09:12)
[2016-06-13] MEDS: ADVAIR DISKUS 500/50 INH PWD INH SCH ×2 (09:12→20:09)
--- NOTE | 2016-06-13 09:30 | REP ---
CT of the chest without IV contrast: Comparisons are the chest CT dated 05/30/2016 and plain film PA and lateral chest performed earlier today. The patient is status post right e upper lobectomy. This is a change from the prior chest CT. There is an air-fluid level in the pleural space over the apex of the right lung suggesting a loculated hydropneumothorax, as a change from the prior chest CT. There are numerous patchy ground-glass densities throughout the lung jacome bilaterally as a distinct interval change compatible with multifocal subsegmental infiltrates involving all lobes of both lungs, most severe in the lower lobes bilaterally. There are no pleural effusions in the posterior sulci. The remaining right middle lobe. There are multiple nodule - like densities with cavitary center is, also a change from the prior chest CT. The mediastinal azygos node measures of 15 mm short axis has a fatty hilus. This has increased size from the comparison CT. There is an aorticopulmonic window node measuring 10 mm short axis, also increased from the comparison CT. There are a few other normal-size anterior mediastinal nodes. There is no axillary lymphadenopathy. In the absence of IV contrast the study is insensitive for hilar adenopathy. The thoracic aorta is unremarkable except for calcified atheroma. Cardiac size normal. There is no pericardial effusion. The visualized upper abdominal contents are unremarkable. There is no adrenal mass. Impression: Status post recent right upper lobectomy. Numerous ground-glass densities in all lobes of both lungs, most predominant in the lower lobes, compatible with multiple subsegmental infiltrates. Multiple cavitary lesions in the remaining right middle lobe. Small hydropneumothorax over the apex of the right lung. Signed by Alfred Michele MD 06/13/2016 09:22 A
[2016-06-13] MEDS: FLUCONAZOLE 200 MG in APPROPRIATE DILUENT 1 EA IV SCH (09:53)
[2016-06-13] MEDS: PERCOCET 5MG/325MG TAB PO PRN ×2 (10:01→19:36)
[2016-06-13] MEDS: FUROSEMIDE 20 MG TAB PO SCH (11:54)
[2016-06-13] MEDS: MEROPENEM INJ 1 GM in D5W MINI-BAG PLUS 100 ML IV SCH ×2 (11:54→20:20)
[2016-06-13 12:00] VITALS: BP 131/63
--- NOTE | 2016-06-13 15:13 | IPN ---
DATE: 06/13/2016 This is now the 13 day for Mrs. Caal status post her right upper lobectomy. Clinically, she is doing much better; however, again her white count has increased with a severe left shift. She is on progressive care unit (PCU) status in the intensive care unit (ICU). Her vital signs show a maximum temperature (Tmax) of 98.1 with a heart rate that ranges between 60 and 75 in a sinus rhythm. There has been no recurrence of her rapid atrial fibrillation. Respiratory rate is 20 to 24 without the use of accessory muscles, and she is 88 to 96% saturated on 3 liters nasal cannula. Her blood pressure is ranging between 158/70 to 161/70. Her intake and output for the past 24 hours has been recorded as 2200 in and 2245 out for near equality. She weighs 115.1 kg today compared to 117.8 kg yesterday. Her presurgical weight was 114 kg. PHYSICAL EXAMINATION: LUNGS: Her lungs show crackles on either side in the right and left lower hemithoraces. Percussion note is full to the diaphragm. CARDIAC: Cardiac exam is without murmurs, clicks, gallops or rubs. I cannot feel her point of maximal impulse (PMI) through her morbid obesity. ABDOMEN: Soft, nontender. Bowel sounds are positive. There is no hepatomegaly that I can feel. There is no costovertebral angle (CVA) tenderness. Extremities show no pretibial edema. No calf tenderness. No differential swelling of the upper extremities. Skin is warm, dry and perfused without cyanosis or mottling, including that of the nail beds and the knees. Neck is supple. There is no jugular venous distention, no subcutaneous emphysema. Trachea is midline. HEENT: Mouth shows her mucous membranes to be pink and moist. Lips and commissures are without lesions. There is no thrush. Eyes show her pupils to be equal and reactive. Extraocular muscles are intact. Sclera anicteric. NEUROLOGIC: Shows II-XII intact along with gross motor and gross sensation intact. Gait is not tested. PSYCHIATRIC: Shows her to be awake and alert, oriented times three with appropriate mood, affect and conversational. Her white count today is back up to 20.4 thousand. Hemoglobin and hematocrit are 11.2 and 35.9, unchanged from yesterday with a platelet count of 234. Differential shows 73% neutrophils, 5% bands, 5 metamyelocytes, 5 myelocytes. There are 6 lymphocytes. Toxic granulations are again reported. Her electrolytes are essentially normal with a BUN and creatinine of 29 and 0.92. She does have an elevated total CO2. Glucose is 132 with a calcium of 8.4. Vancomycin trough was 13.8. Microbiology shows Staphylococcus aureus on now two sputum specimens of 06/10 and 06/11/2016. Both are sensitive to vancomycin. They have the identical susceptibility spectrum. Her chest x-ray again is unchanged, showing the bilateral lower lobe infiltrates. The lung is fully expanded to the chest wall. Her urine culture of 06/07/2016 is without growth compared to a urine culture of 06/04/2016, which showed yeast- like organism. IMPRESSION: 1. Postoperative day #13, status post right upper lobectomy. 2. Stage 1 adenocarcinoma. 3. Diabetes. 4. Hypertension. 5. Morbid obesity. 6. Chronic obstructive pulmonary disease (COPD). 7. Depression. 8. Hyperlipidemia. 9. Right lower lobe pneumonia. 10. Left lower lobe pneumonia. 11. Renal failure, resolved. 12. Anemia, improved. 13. Possible heart failure. PLAN AND DISCUSSION: I am very concerned about the appearance of the white count today. Her chest x-ray has not changed and I am questioning whether there may be a fluid collection that I cannot see on chest x-ray, which might explain her continued white count. I will therefore obtain a CT scan of her today. I will discontinue her Levaquin. Dr. Feliciano suggested placing her on meropenem in addition to the vancomycin, which I will. [facility]
[2016-06-13 16:00] VITALS: BP 133/61
[2016-06-13] MEDS ORDERED: FUROSEMIDE 100 MG/10 ML VIAL (J1940) IV ONE (16:00)
[2016-06-13 20:00] VITALS: BP 136/83
[2016-06-13] MEDS: traZODone 50 MG TAB PO SCH (20:21)
[2016-06-13] MEDS: ALLOPURINOL 100 MG TAB PO SCH (20:21)
[2016-06-13] MEDS: **NOTE PATIENT COMMENT** MISC XX SCH (20:22)
[2016-06-14] VITALS: BP 144/64
[2016-06-14] MEDS: LEVALBUTEROL 1.25 MG/0.5 ML CONCENTRATE NEB NEB SCH ×4 (01:51→20:00)
[2016-06-14] MEDS: methylPREDNISolone INJ 40 MG/1 ML VIAL (J2920) IV SCH (02:23)
[2016-06-14 02:42] LABS: MEAN CORPUSCULAR HEMOGLOBIN 29.6 pg (27.0-33.0); MEAN CORPUSCULAR HGB CONC 31.9 g/dl (32.0-36.5); MEAN CORPUSCULAR VOLUME 92.8 fl (80.0-96.0); PLATELET COUNT, AUTOMATED 222 k/mm3 (150-450); RED CELL DISTRIBUTION WIDTH 14.7 % (11.5-14.5); WHITE BLOOD COUNT 15.8 K/mm3 (4.0-10.0)
[2016-06-14 02:55] LABS: CALCIUM LEVEL 8.2 MG/DL (8.8-10.2); GLOMERULAR FILTRATION RATE 58.4 (>39)
[2016-06-14 03:00] LABS: POTASSIUM SERUM 5.4 MEQ/L (3.5-5.1)
[2016-06-14 03:05] LABS: BANDS 2 % (< 11); EOSINOPHILS 1 % (0-5)
[2016-06-14 03:08] LABS: ANISOCYTOSIS 1+; HYPOCHROMASIA 2+
[2016-06-14] MEDS: VANCOMYCIN HCL 750 MG, VIAL MATE ADAPTER 1 EACH in D5W 250 ML IV SCH ×2 (03:08→13:47)
[2016-06-14 04:00] VITALS: BP 142/67
[2016-06-14] MEDS: MEROPENEM INJ 1 GM in D5W MINI-BAG PLUS 100 ML IV SCH ×3 (04:23→19:55)
[2016-06-14] MEDS: LEVOTHYROXINE 0.05 MG TAB (50 MCG) PO SCH (05:42)
[2016-06-14] MEDS: SLF 3 ML SYR IV SCH ×3 (05:42→21:17)
--- NOTE | 2016-06-14 06:11 | PHACANCOPD ---
PHARMACY VANCOMYCIN DOSING Pt Demographics Demographics Patient Age:70 , Weight:114.100 , Gender: female Adjusted Body Weight Date: 06/04/16, Adjusted Body Weight: [84.7] Kg Vancomycin Vancomycin indication: Pneumonia Vancomycin Target Ranges: 10-20 mcg/ml Vancomycin Load Y/N: Yes Load Dose Date Time Vancomycin Load Dose: 1750mg Date: 06/04 Time: 1200 Vancomycin Dose Date: 06/14/16. Current Vancomycin Dose: [750MG IV Q12H] Intermittent Dosing?: No Labs Micro Microbiology 06/04/16 Blood Culture - Final, Complete NO GROWTH AFTER 5 DAYS 06/11/16 Gram Stain - Final, Complete 06/11/16 Sputum Culture - Final, Complete Staphylococcus Aureus 06/10/16 Gram Stain - Final, Complete 06/10/16 Sputum Culture - Final, Complete Staphylococcus Aureus 06/06/16 MRSA Screen - Final, Complete 06/07/16 Urine Culture - Final, Complete 06/04/16 Urine Culture - Final, Complete Yeast Like Organism Creatinine Clearance Date:06/04/16. Creatinine Clearance: [55ML/MIN.]. Assessment and Plan Maintaining Current Dose?: Yes Reason for dose change: No Dose Change Pharmacist Note Pharmacist Note Date: 06/14/16. Pharmacist note:TROUGH DRAWN 06/14@0230 REPORTED 13.3:WILL CONTINUE CURRENT VANCOMYCIN REGIMEN OF 750MG IV Q12H Date: 06/06/16. Pharmacist note: PT trough value came back today at 20.4 at 11: 02. Creatinine clearance has slightly improved to 20.4ml/min, vancomycin half- life estimated in this patient to be ~14 hours. To lower the trough, dosing is being changed to 750mg q12h starting at 0200. Date: 06/04/16. Pharmacist note: Patient was started on Vancomycin and Levaquin for treatment of Pneumonia. She has no history of Vancomycin use at our facility. She has had a history of both MSSA AND MRSA. Patient was loaded on Vancomycin 1750mg then continued on Vancomycin 1gm IV q12h. We will continue to monitor and make adjustments as necessary. [facility] Jun 14, 2016 06:11
[2016-06-14] MEDS: HumaLOG INSULIN (NovoLOG) PER UNIT SC SCH ×4 (06:44→21:00)
[2016-06-14 08:00] VITALS: BP 134/62
[2016-06-14] MEDS: TIOTROPIUM INHALER/CAPSULE (SPIRIVA) INH SCH (08:28)
[2016-06-14] MEDS: ADVAIR DISKUS 500/50 INH PWD INH SCH ×2 (08:28→20:50)
--- NOTE | 2016-06-14 08:28 | REP ---
Chest x-ray: Two views. History: Pneumonia. Status post right upper lobectomy. Comparison study: June 13, 2016. Findings: EKG monitoring electrodes overlie the chest. There are infiltrates again noted in both bases and in the right apex. Air-fluid level is seen in the right apical pleural space unchanged. There are probably two other air cysts in the right upper lobe infiltrate region. Right hemidiaphragm remains elevated. No new infiltrate is seen. Impression: Bilateral infiltrates unchanged. Signed by Haroldo Stokes MD 06/14/2016 09:29 A
[2016-06-14] MEDS: HEPARIN SOD (PORCINE) 5000 UNITS/ML VIAL SC SCH ×2 (09:22→21:16)
[2016-06-14] MEDS: LIDOCAINE 5% (LIDODERM) PATCH TD SCH (09:22)
[2016-06-14] MEDS: guaiFENesin ER 600 MG TAB PO SCH ×2 (09:23→21:15)
[2016-06-14] MEDS: POTASSIUM CHLORIDE 10 MEQ SR TABLET PO SCH (09:23)
[2016-06-14] MEDS: LEVEMIR (INSULIN DETEMIR) 1 UNITS/0.01ML SC SCH ×2 (09:23→21:16)
[2016-06-14] MEDS: DULoxetine 30 MG CAP (CYMBALTA) PO SCH (09:23)
[2016-06-14] MEDS: DIGOXIN 0.25 MG TAB PO SCH (09:24)
[2016-06-14] MEDS: DOCUSATE SODIUM 100 MG CAP PO SCH ×2 (09:24→21:15)
[2016-06-14] MEDS: FUROSEMIDE 40 MG TAB PO SCH (09:24)
[2016-06-14] MEDS: LISINOPRIL 10 MG TAB PO SCH (09:24)
[2016-06-14] MEDS: PANTOPRAZOLE 40MG TAB (PROTONIX) PO SCH (09:24)
[2016-06-14] MEDS: CALCIUM/VITAMIN D 500 MG TAB PO SCH (09:24)
[2016-06-14] MEDS: FERROUS GLUCONATE 324 MG TAB PO SCH (09:24)
[2016-06-14] MEDS: MOM 30ML SUSPENSION UDC PO SCH (09:25)
[2016-06-14] MEDS: ASPIRIN 81 MG ENTERIC TAB PO SCH (09:25)
[2016-06-14] MEDS: FLUCONAZOLE 200 MG in APPROPRIATE DILUENT 1 EA IV SCH (10:18)
[2016-06-14] MEDS: FUROSEMIDE 20 MG TAB PO SCH (11:54)
[2016-06-14 12:00] VITALS: BP 146/67
--- NOTE | 2016-06-14 13:58 | IPN ---
DATE: 06/14/2016 This is now the 14th postoperative day for Mrs. Caal. She is clinically feeling well. She was started on meropenem yesterday and today her white count is down to 15,000 from 20,000. This is the first time that she has decreased her white count significantly. Her vital signs show a maximum temperature (Tmax) of 97.6 with a heart rate that ranges between 73 and 66 in a sinus rhythm, respiratory rate of 18 to 20 without the use of accessory muscles, who is 93 to 94% saturated on 3 liters nasal cannula and whose blood pressure is ranging between 146/67 to 134/62. Her intake and output for the past 24 hours has been recorded as 2525 in and 3650 out for a negativity of 1125 mL. She has put out 3650 mL in urine output. She weighs 114.1 kg today compared to 115.1 kg yesterday. Her preoperative weight was 114 kg. PHYSICAL EXAMINATION: LUNGS: She has equal breath sounds on either side. There are some inspiratory rales at both bases with the right greater than the left. Percussion note is full to the diaphragm, as far as I can tell through her morbid obesity. CARDIAC: Cardiac exam is without murmurs, clicks, gallops or rubs. I cannot feel her point of maximal impulse (PMI) through her morbid obesity. S1, S2 are normal. ABDOMEN: Soft, nontender. Bowel sounds are positive. There is no hepatomegaly that I can feel. There is no costovertebral angle (CVA) tenderness. Extremities show trace to no pretibial edema today. I just think that she has a lot of subcutaneous tissue in her legs. There is no calf tenderness. No differential swelling of the upper extremities. Skin is warm, dry and perfused without cyanosis or mottling, including that of the nail beds and the knees. Neck is supple. There is no jugular venous distention, no subcutaneous emphysema. Trachea is midline. HEENT: Mouth shows her mucous membranes to be pink and moist. Lips and commissures are without lesions. There is no thrush. Eyes show her pupils to be equal and reactive. Extraocular muscles are intact. Sclera anicteric. NEUROLOGIC: Shows II-XII intact along with gross motor and gross sensation intact. Gait is not tested. PSYCHIATRIC: Shows her to be awake and alert, oriented times three with appropriate mood, affect and conversational. Her white count today is down to 15.8 with a hemoglobin and hematocrit are 11.8 and 37.0, unchanged from yesterday with a platelet count of 222 and stable. Differential shows 76% neutrophils, 2% bands, 3% metamyelocytes, 4% myelocytes, 6% lymphocytes and 8% monocytes. She still has severe left shift. There are no toxic granulations reported today. Her electrolytes show a potassium of 5.4 with a BUN and creatinine of 31 and 1.0. Glucose is 123 with a calcium of 8.2. Her chest x-ray today is essentially unchanged. She still shows the right and left lower infiltrates. The left infiltrate may be improving. She still has the right upper lobe infiltrative process also with what looks to be a cavity within the lung. The lung is fully expanded to the chest wall. Her chest CT done yesterday showed bilateral consolidative infiltrative processes in both lower lobes. She also had extra pleural fluid at the cupula and cavitary lesions in the apical basilar segment of the lower lobe in the cupula. These could represent lung abscesses and or empyema. They are, however, very small. IMPRESSION: 1. Postoperative day #14, status post right upper lobectomy. 2. Stage 1 adenocarcinoma. 3. Diabetes. 4. Hypertension. 5. Morbid obesity. 6. Chronic obstructive pulmonary disease (COPD). 7. Depression. 8. Hyperlipidemia. 9. Right and left lower lobe pneumonias. 10. Renal failure, resolved. 11. Anemia, improved. 12. Possible heart failure. 13. Possible lung abscess, apical basilar segment of the right lower lobe. 14. Possible empyema. PLAN AND DISCUSSION: I am very gratified that her white count has decreased, although I am still worried about the severe left shift. She was started on meropenem, which has anaerobic coverage. She is listed as allergies to PENICILLIN and cross reactors, she did not react to meropenem. We will continue the meropenem and the vancomycin intravenously. She has some mild hyperglycemia and I will discontinue potassium supplements if she is on them. I will not diurese her today.
[2016-06-14] MEDS: PERCOCET 5MG/325MG TAB PO PRN ×2 (15:31→19:54)
[2016-06-14 16:04] VITALS: BP 142/63
[2016-06-14 20:00] VITALS: BP 131/60
[2016-06-14] MEDS: **NOTE PATIENT COMMENT** MISC XX SCH (21:00)
[2016-06-14] MEDS: ALLOPURINOL 100 MG TAB PO SCH (21:15)
[2016-06-14] MEDS: traZODone 50 MG TAB PO SCH (21:15)
[2016-06-15] VITALS: BP 146/65
[2016-06-15] MEDS: LEVALBUTEROL 1.25 MG/0.5 ML CONCENTRATE NEB NEB SCH ×4 (01:41→20:00)
[2016-06-15] MEDS: VANCOMYCIN HCL 750 MG, VIAL MATE ADAPTER 1 EACH in D5W 250 ML IV SCH ×2 (02:03→14:13)
[2016-06-15] MEDS: MEROPENEM INJ 1 GM in D5W MINI-BAG PLUS 100 ML IV SCH ×3 (03:14→21:21)
[2016-06-15 04:00] VITALS: BP 146/103
[2016-06-15 04:46] LABS: MEAN CORPUSCULAR HEMOGLOBIN 28.9 pg (27.0-33.0); MEAN CORPUSCULAR VOLUME 93.2 fl (80.0-96.0); PLATELET COUNT, AUTOMATED 259 k/mm3 (150-450); RED CELL DISTRIBUTION WIDTH 14.7 % (11.5-14.5); WHITE BLOOD COUNT 16.4 K/mm3 (4.0-10.0)
[2016-06-15 04:47] LABS: ANION GAP 4 MEQ/L (8-16); BLOOD UREA NITROGEN 27 MG/DL (7-18); CALCIUM LEVEL 8.3 MG/DL (8.8-10.2); CARBON DIOXIDE LEVEL 36 MEQ/L (21-32); CHLORIDE LEVEL 97 MEQ/L (98-107); CREATININE FOR GFR 0.92 MG/DL (0.55-1.02); GLOMERULAR FILTRATION RATE > 60.0 (>39); GLUCOSE, FASTING 105 MG/DL (83-110); POTASSIUM SERUM 4.8 MEQ/L (3.5-5.1); SODIUM LEVEL 137 MEQ/L (136-145)
[2016-06-15] MEDS: LEVOTHYROXINE 0.05 MG TAB (50 MCG) PO SCH (05:59)
[2016-06-15] MEDS: SLF 3 ML SYR IV SCH ×3 (06:00→21:23)
[2016-06-15 06:08] LABS: BANDS 2 % (< 11)
[2016-06-15] MEDS: HumaLOG INSULIN (NovoLOG) PER UNIT SC SCH ×4 (07:30→21:00)
[2016-06-15] MEDS: TIOTROPIUM INHALER/CAPSULE (SPIRIVA) INH SCH (08:15)
[2016-06-15] MEDS: ADVAIR DISKUS 500/50 INH PWD INH SCH ×2 (08:15→21:05)
[2016-06-15] MEDS ORDERED: methylPREDNISolone INJ 40 MG/1 ML VIAL (J2920) IV SCH (09:00)
--- NOTE | 2016-06-15 09:02 | REP ---
PA LATERAL CHEST: 06/15/2016. Clinical history: Pneumonia. Status post right upper lobectomy. Comparison: 06/14/2016, 06/13/2016, CT chest 06/13/2016. Findings: Bilateral infiltrates again seen. Volume loss in the right hemithorax. Small air-fluid level in the right upper lung zone unchanged. Cardiomediastinal silhouette and airway as well as the aorta unchanged. Bones intact. Small effusions difficult to exclude. Pulmonary hypertension and COPD again seen. Impression: 1. Bilateral infiltrates, apical air fluid level in a patient with prior lobectomy on the right including right volume loss, pulmonary artery hypertension. All these findings stable. Signed by Tyrone Bean MD 06/15/2016 07:26 P
[2016-06-15] MEDS: MOM 30ML SUSPENSION UDC PO SCH (09:14)
[2016-06-15] MEDS: LIDOCAINE 5% (LIDODERM) PATCH TD SCH (09:14)
[2016-06-15] MEDS: FLUCONAZOLE 200 MG in APPROPRIATE DILUENT 1 EA IV SCH (09:15)
[2016-06-15] MEDS: HEPARIN SOD (PORCINE) 5000 UNITS/ML VIAL SC SCH ×2 (09:15→21:22)
[2016-06-15] MEDS: CALCIUM/VITAMIN D 500 MG TAB PO SCH (09:15)
[2016-06-15] MEDS: DIGOXIN 0.25 MG TAB PO SCH (09:15)
[2016-06-15] MEDS: DULoxetine 30 MG CAP (CYMBALTA) PO SCH (09:16)
[2016-06-15] MEDS: FUROSEMIDE 40 MG TAB PO SCH (09:16)
[2016-06-15] MEDS: guaiFENesin ER 600 MG TAB PO SCH ×2 (09:16→21:22)
[2016-06-15] MEDS: PANTOPRAZOLE 40MG TAB (PROTONIX) PO SCH (09:16)
[2016-06-15] MEDS: DOCUSATE SODIUM 100 MG CAP PO SCH ×2 (09:16→21:22)
[2016-06-15] MEDS: LISINOPRIL 10 MG TAB PO SCH (09:16)
[2016-06-15] MEDS: ASPIRIN 81 MG ENTERIC TAB PO SCH (09:16)
[2016-06-15] MEDS: FERROUS GLUCONATE 324 MG TAB PO SCH (09:16)
[2016-06-15] MEDS: LEVEMIR (INSULIN DETEMIR) 1 UNITS/0.01ML SC SCH ×2 (09:17→21:22)
[2016-06-15] MEDS: PERCOCET 5MG/325MG TAB PO PRN ×2 (09:26→19:17)
[2016-06-15] MEDS: FUROSEMIDE 20 MG TAB PO SCH (11:47)
[2016-06-15 16:00] VITALS: BP 144/62
[2016-06-15 19:30] VITALS: BP 145/65
[2016-06-15] MEDS: **NOTE PATIENT COMMENT** MISC XX SCH (21:00)
[2016-06-15] MEDS: traZODone 50 MG TAB PO SCH (21:21)
[2016-06-15] MEDS: ALLOPURINOL 100 MG TAB PO SCH (21:21)
[2016-06-16] VITALS: BP 149/65
[2016-06-16] MEDS: VANCOMYCIN HCL 750 MG, VIAL MATE ADAPTER 1 EACH in D5W 250 ML IV SCH ×2 (02:26→15:03)
[2016-06-16] MEDS: LEVALBUTEROL 1.25 MG/0.5 ML CONCENTRATE NEB NEB SCH ×4 (02:30→20:00)
[2016-06-16 04:00] VITALS: BP 140/62
[2016-06-16] MEDS: MEROPENEM INJ 1 GM in D5W MINI-BAG PLUS 100 ML IV SCH ×3 (04:24→20:27)
[2016-06-16 04:33] LABS: BASO % 0.2 % (0.0-1.0); EOS # 0.1 K/mm3 (0.0-0.50); EOS % 0.6 % (0.0-3.0); LARGE UNSTAINED CELL # 0.3 K/mm3 (0.0-0.4); LARGE UNSTAINED CELL % 2.2 % (0.0-4.0); LYMPH % 6.9 % (24.0-44.0); MEAN CORPUSCULAR HEMOGLOBIN 28.5 pg (27.0-33.0); MEAN CORPUSCULAR VOLUME 92.2 fl (80.0-96.0); MONO # 0.8 K/mm3 (0.0-0.8); MONO % 5.9 % (0.0-5.0); NEUTROPHILS # 11.6 K/mm3 (1.8-7.7); NEUTROPHILS % 84.2 % (36.0-66.0); PLATELET COUNT, AUTOMATED 265 k/mm3 (150-450); RED CELL DISTRIBUTION WIDTH 14.6 % (11.5-14.5); WHITE BLOOD COUNT 13.8 K/mm3 (4.0-10.0)
[2016-06-16 04:54] LABS: ANION GAP 3 MEQ/L (8-16); BLOOD UREA NITROGEN 24 MG/DL (7-18); CALCIUM LEVEL 8.1 MG/DL (8.8-10.2); CARBON DIOXIDE LEVEL 37 MEQ/L (21-32); CHLORIDE LEVEL 98 MEQ/L (98-107); CREATININE FOR GFR 0.82 MG/DL (0.55-1.02); GLOMERULAR FILTRATION RATE > 60.0 (>39); GLUCOSE, FASTING 64 MG/DL (83-110); POTASSIUM SERUM 3.9 MEQ/L (3.5-5.1); SODIUM LEVEL 138 MEQ/L (136-145)
[2016-06-16] MEDS: SLF 3 ML SYR IV SCH ×3 (06:00→20:33)
[2016-06-16] MEDS: LEVOTHYROXINE 0.05 MG TAB (50 MCG) PO SCH (06:13)
[2016-06-16] MEDS: ADVAIR DISKUS 500/50 INH PWD INH SCH ×2 (07:02→21:30)
[2016-06-16] MEDS: TIOTROPIUM INHALER/CAPSULE (SPIRIVA) INH SCH (07:02)
[2016-06-16] MEDS: HumaLOG INSULIN (NovoLOG) PER UNIT SC SCH ×4 (07:30→20:31)
[2016-06-16 08:00] VITALS: BP 129/60
[2016-06-16] MEDS: DULoxetine 30 MG CAP (CYMBALTA) PO SCH (09:00)
--- NOTE | 2016-06-16 09:09 | IPN ---
DATE: 06/15/2016 This is now the day for Mrs. Caal. Clinically, she is doing quite well. Her white count, however is still hovering around 1600 and she still has a very significant left shift. Her oxygen requirement is now decreasing to 1-2 liters nasal cannula. Her vital signs show a maximum temperature (Tmax) of 98.2 with a heart rate that ranges between 62-79 in a sinus rhythm. There has been no re-occurrence of her rapid atrial fibrillation. Respiratory rate is constant at 18 and she is 90-92% saturated on 1-2 liters nasal cannula. Blood pressure is ranging between 146/103 to 146/65. Her intake and output for the past 24 hours has been recorded as 2085 in and 2500 out for a negativity of 415 mL. She weighs 113.6 kg today compared to 114.1 kg yesterday. She is having bowel movements. She has put out a total of 2500 mL in urine output. On physical examination, she has bibasilar inspiratory faint rales at the bases. Percussion notes are full to the diaphragm. Cardiac exam is without murmurs, clicks, gallops or rubs. I cannot feel her point of maximal impulse (PMI) through her obesity. S1, S2 are normal. Abdomen is soft, nontender. Bowel sounds are positive. There is no hepatomegaly. No costovertebral angle (CVA) tenderness that I can feel through her obesity. Extremities show no pretibial edema and no calf tenderness. She has a lot of subcutaneous tissue pretibially, but I do not detect any pitting edema. There is no differential swelling of the upper extremities. Skin is warm, dry and perfused without cyanosis or mottling, including that of the nail beds and the knees. Neck is supple. There is no jugular venous distention, no subcutaneous emphysema. Trachea is midline. Mouth shows her mucous membranes to be pink and moist. Lips and commissures are without lesions. There is no thrush. Eyes show her pupils to be equal and reactive. Extraocular muscles are intact. Sclera anicteric. Neurologic shows II-XII intact, along with gross motor and gross sensation intact. Gait is not tested, and psychiatric shows her to be awake and alert, oriented times three with appropriate mood, affect and conversational. Her white count today is 16.4, up from 15.8 yesterday. Hemoglobin and hematocrit are 11.4 and 37.0, unchanged from yesterday, with a platelet count of 259 and stable. Differential shows 78% neutrophils, 2% bands, 5% metamyelocytes, 11% lymphocytes, and 4% monocytes. Chemistries show essentially normal electrolytes with an elevated total CO2 of 36. BUN and creatinine are 27 and 0.092, with a calcium of 8.3 and a glucose of 105. She remains on vancomycin and meropenem. She is also on fluconazole for yeast in her urine over a week ago and I will discontinue that. Her chest x-ray still shows the right and left lower infiltrates. The right infiltrate looks to be somewhat improved. A left infiltrate is still present. The upper lobe infiltrate on the right also looks to be somewhat improved. The lateral chest x-ray still shows the infiltrative process on the left and right sides inferiorly superimposed and still quite dense. IMPRESSION: 1. Postoperative day #15, status post right upper lobectomy. 2. Stage 1A adenocarcinoma. 3. Diabetes. 4. Hypertension. 5. Morbid obesity. 6. Chronic obstructive pulmonary disease (COPD). 7. Depression. 8. Hyperlipidemia. 9. Right and left lower pneumonias. 10. Renal failure, resolved. 11. Anemia, improved. 12. Possible heart failure. 13. Possible lung abscesses, apical basilar segment of the right lower lobe of the cupula. 14. Possible empyema. PLAN AND DISCUSSION: I am still concerned about her white count and most particularly her left shift. She will continue on the antibiotics. Clinically, she is doing quite well. Since the CAT scan a few days ago, I have been considering placing a pigtail drain in the upper hemithorax, however it is very small. She also looks as if she has cavitary lung abscesses in the parenchyma itself at the top of lung in the apical basilar segment. This may be superimposed from her COPD. We will continue her on the antibiotics as they are at this point in time. I will discontinue her fluconazole. I will not diurese her as she looks to be diuresing spontaneously.
--- NOTE | 2016-06-16 10:00 | IPN ---
DATE: 06/16/2016 This is now the 16th postoperative day for Mrs. Caal. She is clinically again feeling well. Her white count has markedly decreased and her differential does not show a marked left shift with immature cells. Her vital signs show a maximum temperature (Tmax) of 97.2 with a heart rate that ranges between 59-74 in a sinus rhythm without any return of the rapid atrial fibrillation. Respiratory rate is 20-2 without the use of accessory muscles, and she is 94-95% saturated on 1 liter nasal cannula. Blood pressure is ranging between 149/65 to 148/62. Her intake and output for the past 24 hours has been recorded as 2100 in and 2350 out for a negativity of 250 mL. She weighs 115 kg today compared to 113.6 kg yesterday. She has put out a total of 2350 mL in urine output. On physical examination, her lungs shows crackles and coarse rhonchi in the right lower hemithorax. Left hemithorax shows normal vesicular sounds. Percussion note is full to the diaphragm. Cardiac exam is without murmurs, clicks, gallops or rubs. I cannot feel her point of maximal impulse (PMI) through her obesity. S1, S2 are normal. Abdomen is soft, nontender. Bowel sounds are positive. There is no hepatomegaly that I can feel through her obesity and there is no costovertebral angle (CVA) tenderness. Extremities show maybe trace pretibial edema, no calf tenderness. No differential swelling of the upper extremities. Skin is warm, dry and perfused without cyanosis or mottling, including that of the nail beds and the knees. Neck is supple. There is no jugular venous distention, no subcutaneous emphysema. Trachea is midline. Mouth shows her mucous membranes to be pink and moist. Lips and commissures are without lesions. There is no thrush. Eyes show her pupils to be equal and reactive. Extraocular muscles are intact. Sclera anicteric. Neurologic shows II-XII intact, along with gross motor and gross sensation intact. Gait is not tested, and psychiatric shows her to be awake and alert, oriented times three with appropriate mood, affect and conversational. Her white count is 13.8, down from 16.4 yesterday. Her maximum white count on this admission was 22.1 on 06/11/2016. Hemoglobin and hematocrit 11.0 and 35.5, essentially unchanged from yesterday, with a platelet count of 205 and stable. Differential shows 84% neutrophils, 6%, and 5% monocytes. There are no immature forms and no toxic granulations today. Her chemistries show normal electrolytes with in increased total CO2 of 37. BUN and creatinine are 24 and 0.82, with a glucose of 64 and a calcium of 8.1. Vancomycin trough on 06/14/2016 was 13.3, within the therapeutic window. She remains on vancomycin and meropenem as her antibiotics. She is still on Solu-Medrol 10 mg a day, and I will decrease that again to prednisone 5 mg per day. Her chest x-ray is again unchanged. It still shows infiltrates in the right and left lower hemithoraces. The lateral chest x-ray shows dense infiltrate in the posterior hemithorax. The right upper hemithorax shows a bit of clearing. IMPRESSION: 1. Postoperative day #16, status post right upper lobectomy. 2. Stage 1A adenocarcinoma. 3. Diabetes. 4. Hypertension. 5. Morbid obesity. 6. Chronic obstructive pulmonary disease (COPD). 7. Depression. 8. Hyperlipidemia. 9. Right and left lower pneumonias. 10. Renal failure, resolved. 11. Anemia, improved. 12. Possible heart failure. 13. Possible lung abscesses, apical basilar segment of the right lower lobe of the cupula. 14. Possible empyema. PLAN AND DISCUSSION: I am gratified that her white count is coming down and the immature cells are disappearing. She is clinically doing well. I am going to continue her on antibiotics of course and I will decrease her steroids to oral prednisone 5 mg a day.
[2016-06-16] MEDS: MOM 30ML SUSPENSION UDC PO SCH (10:08)
[2016-06-16] MEDS: HEPARIN SOD (PORCINE) 5000 UNITS/ML VIAL SC SCH ×2 (10:08→20:29)
[2016-06-16] MEDS: FUROSEMIDE 40 MG TAB PO SCH (10:09)
[2016-06-16] MEDS: CALCIUM/VITAMIN D 500 MG TAB PO SCH (10:10)
[2016-06-16] MEDS: DIGOXIN 0.25 MG TAB PO SCH (10:10)
[2016-06-16] MEDS: PANTOPRAZOLE 40MG TAB (PROTONIX) PO SCH (10:10)
[2016-06-16] MEDS: LISINOPRIL 10 MG TAB PO SCH (10:10)
[2016-06-16] MEDS: guaiFENesin ER 600 MG TAB PO SCH ×2 (10:10→20:28)
[2016-06-16] MEDS: ASPIRIN 81 MG ENTERIC TAB PO SCH (10:10)
[2016-06-16] MEDS: predniSONE 5 MG TAB PO SCH (10:10)
[2016-06-16] MEDS: LEVEMIR (INSULIN DETEMIR) 1 UNITS/0.01ML SC SCH ×2 (10:11→20:34)
[2016-06-16] MEDS: DOCUSATE SODIUM 100 MG CAP PO SCH ×2 (10:11→20:29)
[2016-06-16] MEDS: FERROUS GLUCONATE 324 MG TAB PO SCH (10:11)
[2016-06-16] MEDS: LIDOCAINE 5% (LIDODERM) PATCH TD SCH (10:11)
[2016-06-16] MEDS: FUROSEMIDE 20 MG TAB PO SCH (11:45)
[2016-06-16 12:00] VITALS: BP 130/60
--- NOTE | 2016-06-16 13:41 | REP ---
CHEST X-RAY PA AND LATERAL: 06/16/2016. Clinical history: Pneumonia, status post right upper lobectomy. Comparison: Chest x-ray 06/15/2016, 06/14/2016, CT chest 06/13/2016. Findings: Lung jacome show bilateral infiltrates heavier in the bases than elsewhere. There is an air-fluid level in the apex and right upper lung zone from prior lobectomy with residual air space. This is all unchanged from yesterday. Cardiomediastinal silhouette and airway were unchanged. The right medial base consolidation posteriorly is greater than other basilar infiltrates as before. No other finding. Impression: 1. Stable chest with findings as above. Signed by Tyrone Bean MD 06/16/2016 07:21 P
[2016-06-16] MEDS: PERCOCET 5MG/325MG TAB PO PRN ×2 (17:26→21:24)
[2016-06-16 18:50] VITALS: BP 145/67
[2016-06-16] MEDS: ALLOPURINOL 100 MG TAB PO SCH (20:28)
[2016-06-16] MEDS: traZODone 50 MG TAB PO SCH (20:28)
[2016-06-16] MEDS: **NOTE PATIENT COMMENT** MISC XX SCH (20:33)
[2016-06-16 23:59] VITALS: BP 141/66
[2016-06-17] MEDS: VANCOMYCIN HCL 750 MG, VIAL MATE ADAPTER 1 EACH in D5W 250 ML IV SCH ×2 (01:10→15:53)
[2016-06-17] MEDS: LEVALBUTEROL 1.25 MG/0.5 ML CONCENTRATE NEB NEB SCH ×4 (02:00→21:21)
[2016-06-17] MEDS: MEROPENEM INJ 1 GM in D5W MINI-BAG PLUS 100 ML IV SCH ×3 (03:20→20:24)
[2016-06-17] MEDS: SLF 3 ML SYR IV SCH ×3 (03:53→20:24)
[2016-06-17 04:45] VITALS: BP 153/68
[2016-06-17] MEDS: LEVOTHYROXINE 0.05 MG TAB (50 MCG) PO SCH (05:03)
[2016-06-17 05:51] LABS: BASO % 0.2 % (0.0-1.0); BLOOD UREA NITROGEN 18 MG/DL (7-18); CALCIUM LEVEL 8.2 MG/DL (8.8-10.2); CARBON DIOXIDE LEVEL 35 MEQ/L (21-32); CREATININE FOR GFR 0.81 MG/DL (0.55-1.02); EOS # 0.1 K/mm3 (0.0-0.50); GLOMERULAR FILTRATION RATE > 60.0 (>39); GLUCOSE, FASTING 67 MG/DL (83-110); LARGE UNSTAINED CELL # 0.2 K/mm3 (0.0-0.4); LARGE UNSTAINED CELL % 2.2 % (0.0-4.0); LYMPH # 0.8 K/mm3 (1.5-4.5); LYMPH % 8.4 % (24.0-44.0); MEAN CORPUSCULAR HEMOGLOBIN 28.8 pg (27.0-33.0); MEAN CORPUSCULAR HGB CONC 31.4 g/dl (32.0-36.5); MEAN CORPUSCULAR VOLUME 91.7 fl (80.0-96.0); MONO # 0.5 K/mm3 (0.0-0.8); MONO % 5.1 % (0.0-5.0); NEUTROPHILS # 8.4 K/mm3 (1.8-7.7); NEUTROPHILS % 83.1 % (36.0-66.0); PLATELET COUNT, AUTOMATED 310 k/mm3 (150-450); RED CELL DISTRIBUTION WIDTH 14.7 % (11.5-14.5); WHITE BLOOD COUNT 10.1 K/mm3 (4.0-10.0)
[2016-06-17] MEDS: HumaLOG INSULIN (NovoLOG) PER UNIT SC SCH ×4 (07:30→20:22)
[2016-06-17 08:00] VITALS: BP 153/69
[2016-06-17] MEDS: TIOTROPIUM INHALER/CAPSULE (SPIRIVA) INH SCH (08:27)
[2016-06-17] MEDS: ADVAIR DISKUS 500/50 INH PWD INH SCH ×2 (08:27→21:21)
--- NOTE | 2016-06-17 08:32 | REP ---
Clinical: Acute pneumonia. Status post right upper lobectomy. Technique: PA and lateral. Comparison: 06/16/2016. Findings: Surgical clips in the right hilum consistent with recent surgery. Opacities primarily involving the right upper lung zone as well as bilateral lower lobes remain essentially stable. Small right apical cap suggest fluid in the pleural space. Visualized mediastinum and cardiac silhouette are within normal limits. Skeletal structures are stable. Impression: Right upper lobe and bilateral lower lobe infiltrate similar to prior examination consistent with multifocal pneumonia. Postsurgical changes. Signed by Ki Garcia MD 06/17/2016 08:23 A
[2016-06-17] MEDS: MOM 30ML SUSPENSION UDC PO SCH (08:59)
[2016-06-17] MEDS: HEPARIN SOD (PORCINE) 5000 UNITS/ML VIAL SC SCH ×2 (08:59→20:23)
[2016-06-17] MEDS: guaiFENesin ER 600 MG TAB PO SCH ×2 (09:00→20:23)
[2016-06-17] MEDS: FERROUS GLUCONATE 324 MG TAB PO SCH (09:00)
[2016-06-17] MEDS: CALCIUM/VITAMIN D 500 MG TAB PO SCH (09:00)
[2016-06-17] MEDS: FUROSEMIDE 40 MG TAB PO SCH (09:00)
[2016-06-17] MEDS: PERCOCET 5MG/325MG TAB PO PRN ×3 (09:01→18:26)
[2016-06-17] MEDS: DOCUSATE SODIUM 100 MG CAP PO SCH ×2 (09:02→20:23)
[2016-06-17] MEDS: ASPIRIN 81 MG ENTERIC TAB PO SCH (09:02)
[2016-06-17] MEDS: LIDOCAINE 5% (LIDODERM) PATCH TD SCH (09:02)
[2016-06-17] MEDS: DULoxetine 30 MG CAP (CYMBALTA) PO SCH (09:02)
[2016-06-17] MEDS: LEVEMIR (INSULIN DETEMIR) 1 UNITS/0.01ML SC SCH ×2 (09:02→20:35)
[2016-06-17] MEDS: DIGOXIN 0.25 MG TAB PO SCH (09:03)
[2016-06-17] MEDS: PANTOPRAZOLE 40MG TAB (PROTONIX) PO SCH (09:12)
[2016-06-17] MEDS: predniSONE 5 MG TAB PO SCH (09:13)
[2016-06-17] MEDS: LISINOPRIL 10 MG TAB PO SCH (09:13)
[2016-06-17 10:10] LABS: ANION GAP 8 MEQ/L (8-16); BLOOD UREA NITROGEN 17 MG/DL (7-18); CALCIUM LEVEL 7.6 MG/DL (8.8-10.2); CARBON DIOXIDE LEVEL 28 MEQ/L (21-32); CHLORIDE LEVEL 99 MEQ/L (98-107); GLOMERULAR FILTRATION RATE > 60.0 (>39); GLUCOSE, FASTING 217 MG/DL (83-110); POTASSIUM SERUM 4.3 MEQ/L (3.5-5.1); SODIUM LEVEL 135 MEQ/L (136-145)
[2016-06-17 11:37] LABS: SODIUM LEVEL 140 MEQ/L (136-145)
[2016-06-17 11:38] LABS: ANION GAP 6 MEQ/L (8-16); CHLORIDE LEVEL 99 MEQ/L (98-107); POTASSIUM SERUM 4.2 MEQ/L (3.5-5.1)
[2016-06-17] MEDS: FUROSEMIDE 20 MG TAB PO SCH (11:42)
[2016-06-17 12:00] VITALS: BP 132/60
[2016-06-17 16:00] VITALS: BP 127/58
--- NOTE | 2016-06-17 16:17 | IPN ---
DATE: 06/17/2016 This is now the 17th postoperative day for Mrs. Caal. Her white count has finally normalized with disappearance of all the immature forms. She is feeling well. I, therefore, will probably send her home tomorrow. Her vital signs show a maximum temperature (T max) of 96.4 with a pulse ranging between 82 and 60 in sinus rhythm, respiratory rate of 18 to 20 without the use of accessory muscles who is 93 to 95% saturated on room air. Her blood pressure is ranging between 132/60 to 153/69. Her intake and output the past 24 hours has been recorded as 1420 in and 1550 out for a negativity of 130 mL. She weighs 115 kg today compared to 115 kg yesterday. Her total urine output has been 1550 mL. PHYSICAL EXAMINATION: She still has crackles in the right lower hemithorax. Percussion note is full to the diaphragm. Cardiac exam is without murmurs, clicks, gallops or rubs. I cannot feel her point of maximum impulse (PMI). S1, S2 are normal. Abdomen is soft and nontender. Bowel sounds are positive. There is no hepatomegaly. No costovertebral angle tenderness. Extremities show no pretibial edema. No calf tenderness. No differential swelling of the upper extremities. Skin is warm, dry and perfused without cyanosis or mottling, including that of the nail beds and the knees. Neck is supple. There is no jugular venous distention, no subcutaneous emphysema. Trachea is midline. Mouth shows her mucous membranes to be pink and moist. Lips and commissures without lesions. There is no thrush. Eyes show her pupils to be equal and reactive. Extraocular motions intact. Sclerae anicteric. Neurologic shows II-XII intact along with gross motor and gross sensation intact. Gait is not tested. Psychiatric shows her to be awake and alert, oriented times three with appropriate mood and affect and conversational. Her white count today is 10.1 with a hemoglobin and hematocrit of 11.4 and 36.3 respectively. Platelet count is 310 and her differential shows 83% neutrophils, 8% lymphocytes, 5% monocytes. There are no immature forms. No toxic granulations. Her electrolytes show a sodium of 135 with a BUN and creatinine of 17 and 0.80. Calcium is 7.6 with a glucose of 217. Her chest x-ray today shows the lung again fully expanded to the chest wall. The right and left lower infiltrates are still present. The lateral chest x-ray still looks to have a dense infiltrate. I do think that there is more lucency on the left side than there was yesterday. The posterior infiltrate also looks a little bit less dense today. IMPRESSION: 1. Postoperative day #17, status post right upper lobectomy. 2. Stage 1A adenocarcinoma. 3. Diabetes. 4. Hypertension. 5. Morbid obesity. 6. Chronic obstructive pulmonary disease (COPD). 7. Depression. 8. Hyperlipidemia. 9. Right and left lower pneumonias. 10. Renal failure, resolved. 11. Anemia, improved. 12. Possible heart failure. 13. Possible lung abscesses, the apical basilar segment of the right lower lobe at the cupola. 14. Possible empyema. PLAN AND DISCUSSION: This is the first time that she has normalized her white count. There are no more immature forms. Therefore, I am feeling more confident that I can discharge her. I will plan to do so tomorrow. I will probably discharge her on Bactrim DS. Dr. Feliciano and I have conferred about her outpatient antibiotics. Her Staph is insensitive to Bactrim, and we would also be covering some gram negatives. Her renal function is acceptable.
[2016-06-17] MEDS: traZODone 50 MG TAB PO SCH (20:23)
[2016-06-17] MEDS: ALLOPURINOL 100 MG TAB PO SCH (20:23)
[2016-06-17] MEDS: **NOTE PATIENT COMMENT** MISC XX SCH (20:24)
[2016-06-17 20:56] VITALS: BP 122/56
[2016-06-17 23:59] VITALS: BP 167/70
[2016-06-18] MEDS: VANCOMYCIN HCL 750 MG, VIAL MATE ADAPTER 1 EACH in D5W 250 ML IV SCH (01:06)
[2016-06-18] MEDS: LEVALBUTEROL 1.25 MG/0.5 ML CONCENTRATE NEB NEB SCH ×2 (01:20→08:00)
[2016-06-18] MEDS: SLF 3 ML SYR IV SCH (03:12)
[2016-06-18] MEDS: MEROPENEM INJ 1 GM in D5W MINI-BAG PLUS 100 ML IV SCH (03:12)
[2016-06-18] MEDS: LEVOTHYROXINE 0.05 MG TAB (50 MCG) PO SCH (05:06)
[2016-06-18 05:09] VITALS: BP 145/61
[2016-06-18 06:27] LABS: BASO % 0.2 % (0.0-1.0); EOS # 0.2 K/mm3 (0.0-0.50); EOS % 2.1 % (0.0-3.0); LARGE UNSTAINED CELL # 0.2 K/mm3 (0.0-0.4); LARGE UNSTAINED CELL % 1.8 % (0.0-4.0); LYMPH # 1.1 K/mm3 (1.5-4.5); LYMPH % 9.2 % (24.0-44.0); MEAN CORPUSCULAR HEMOGLOBIN 28.4 pg (27.0-33.0); MEAN CORPUSCULAR VOLUME 91.8 fl (80.0-96.0); MONO % 10.4 % (0.0-5.0); NEUTROPHILS # 7.6 K/mm3 (1.8-7.7); NEUTROPHILS % 76.3 % (36.0-66.0); PLATELET COUNT, AUTOMATED 358 k/mm3 (150-450)
[2016-06-18 07:11] LABS: ANION GAP 8 MEQ/L (8-16); BLOOD UREA NITROGEN 17 MG/DL (7-18); CALCIUM LEVEL 7.9 MG/DL (8.8-10.2); CARBON DIOXIDE LEVEL 33 MEQ/L (21-32); CHLORIDE LEVEL 100 MEQ/L (98-107); CREATININE FOR GFR 0.77 MG/DL (0.55-1.02); GLOMERULAR FILTRATION RATE > 60.0 (>39); GLUCOSE, FASTING 66 MG/DL (83-110); POTASSIUM SERUM 4.7 MEQ/L (3.5-5.1); SODIUM LEVEL 141 MEQ/L (136-145)
[2016-06-18] MEDS: HumaLOG INSULIN (NovoLOG) PER UNIT SC SCH (07:24)
[2016-06-18] MEDS ORDERED: PERCOCET PO (07:46)
[2016-06-18] MEDS ORDERED: DIGO0.25 PO (07:46)
[2016-06-18] MEDS ORDERED: BACT800T5 PO (07:46)
[2016-06-18] MEDS: TIOTROPIUM INHALER/CAPSULE (SPIRIVA) INH SCH (08:15)
[2016-06-18] MEDS: ADVAIR DISKUS 500/50 INH PWD INH SCH (08:15)
--- NOTE | 2016-06-18 08:22 | REP ---
Clinical: Status post right upper lobe lobectomy with superimposed pneumonia. Technique: PA and lateral. Comparison: 06/17/2016. Findings: Right-sided postsurgical changes are again appreciated and stable. Diffuse bilateral infiltrates are identified and essentially unchanged compared to prior examination. Pleural effusion as well as multifocal pneumonia suggested. Visualized portions of the mediastinum and cardiac silhouette suggest underlying hilar adenopathy. Impression: Right-sided postsurgical changes. Superimposed multifocal infiltrates and possible effusion similar to prior examination. Signed by Ki Garcia MD 06/18/2016 08:13 A
--- NOTE | 2016-06-18 08:30 | DSES ---
DATE OF ADMISSION: 05/31/2016 DATE OF DISCHARGE: DISCHARGE DIAGNOSES: 1. Stage IA adenocarcinoma right upper lobe. 2. Postoperative day #18 status post right upper lobectomy. 3. Diabetes. 4. Hypertension. 5. Morbid obesity. 6. Chronic obstructive pulmonary disease. 7. Depression. 8. Hyperlipidemia. 9. Right and left lower pneumonias. 10. Renal failure, resolved. 11. Anemia, improved. 12. Possible heart failure. 13. Possible lung abscesses apical basilar segment of the right lower lobe at the cupula. 14. Possible empyema. 15. Gout. 16. Transient atrial fibrillation postoperatively. HOSPITAL COURSE: The patient is a 70-year-old white female who was found to have a right upper lobe lesion. She is a morbidly obese woman. A positive needle biopsy was obtained preoperatively which showed adenocarcinoma. This was done in March. She had some mediastinal lymphadenopathy and she then underwent a mediastinoscopy in late April which found nodes to be negative. She therefore underwent a right upper lobectomy with a complete mediastinal node dissection. Pathology revealed moderately differentiated adenocarcinoma with micro papillary features which was 1.5 cm in its greatest diameter. All lymph nodes were negative, including peribronchial, hilar and mediastinal nodes. She was then graded as a Stage IA disease, [id number]. The first few days postoperatively she did very well; however, she then started to develop a right lower lobe infiltrate which was thereby followed by a left lower lobe infiltrate. Her white count spiked and she was febrile. She could not bring up much sputum initially. Nonetheless, she was started on antibiotics which initially consisted of vancomycin and Levaquin. She has allergies to penicillins. She plateaued at a white count of around 20,000, but then started to cough up sputum and a sputum culture revealed Staphylococcus aureus multiple times resistant to clindamycin, erythromycin and penicillin G, but sensitive to everything else. She was continued on the vancomycin. White count did not decrease and the infiltrates were remaining the same. She was then changed to meropenem to cover anaerobes in addition to the vancomycin to cover her Staphylococcus aureus. She gradually improved with the white count starting to come down and she is being discharged today with a white count of 10.1, which has been in that range for the last two days. A CAT scan done postoperatively showed a collection in the right upper cupula with cavitary lesions which could also have been lung abscesses. She is being discharged today on her home medications which include ProAir one puff four times a day as needed shortness of breath, allopurinol 100 mg by mouth at bedtime, aspirin 81 mg daily, atorvastatin 40 mg daily, calcium with D one tablet daily, Cymbalta 30 mg daily, Nexium 40 mg daily, ferrous gluconate 324 mg daily, fluconazole two puffs twice a day, Lasix 40 mg every morning, Lasix 20 mg at noon, her insulin which she takes 90 units subcutaneous every morning and 85 units subcutaneous at bedtime, Xyzal 5 mg daily, Synthroid 50 mg daily, lisinopril 10 mg daily, lorazepam 0.5 mg twice a day, magnesium 400 mg three times a day, metolazone 2.5 mg weekly, potassium chloride 30 mEq three times a day, ranitidine 150 mg daily, Advair Diskus 550 one puff twice a day, Spiriva 18 mcg one puff daily, and trazodone 150 mg at bedtime. Additionally, she is being placed on digoxin 0.25 mg daily along with Bactrim DS one twice a day for 10 days, and Percocet one every four hours as needed pain. She will return to see me in one week with a chest x-ray. Her discharge chest x-ray still shows right and left pleural infiltrates; however, improved. Her discharge white count today is 10.0 with hemoglobin and hematocrit of 10.9 and 35.1 and a platelet count of 358. Discharge electrolytes are normal with a BUN and creatinine of 17 and 0.77.
[2016-06-18] MEDS: MOM 30ML SUSPENSION UDC PO SCH (08:49)
[2016-06-18] MEDS: DOCUSATE SODIUM 100 MG CAP PO SCH (08:50)
[2016-06-18] MEDS: LIDOCAINE 5% (LIDODERM) PATCH TD SCH (08:50)
[2016-06-18] MEDS: guaiFENesin ER 600 MG TAB PO SCH (08:50)
[2016-06-18] MEDS: PERCOCET 5MG/325MG TAB PO PRN (08:50)
[2016-06-18] MEDS: ASPIRIN 81 MG ENTERIC TAB PO SCH (08:50)
[2016-06-18 08:51] VITALS: BP 138/82
[2016-06-18] MEDS: FERROUS GLUCONATE 324 MG TAB PO SCH (08:51)
[2016-06-18] MEDS: predniSONE 5 MG TAB PO SCH (08:51)
[2016-06-18] MEDS: DIGOXIN 0.25 MG TAB PO SCH (08:51)
[2016-06-18] MEDS: PANTOPRAZOLE 40MG TAB (PROTONIX) PO SCH (08:51)
[2016-06-18] MEDS: LISINOPRIL 10 MG TAB PO SCH (08:51)
[2016-06-18] MEDS: CALCIUM/VITAMIN D 500 MG TAB PO SCH (08:51)
[2016-06-18] MEDS: DULoxetine 30 MG CAP (CYMBALTA) PO SCH (08:52)
[2016-06-18] MEDS: FUROSEMIDE 40 MG TAB PO SCH (08:52)
[2016-06-18] MEDS: LEVEMIR (INSULIN DETEMIR) 1 UNITS/0.01ML SC SCH (08:52)
[2016-06-18] MEDS: HEPARIN SOD (PORCINE) 5000 UNITS/ML VIAL SC SCH (08:52)
== END 2016-06-18 10:17 | disposition home or self-care (01) | DRG 163 ==
LOC: M OR 06:31 → M ICU 15:54 → M PCU 06-02 17:30 → M ICU 06-06 11:31 → M PCU 06-16 18:40
PROVIDERS: ADMIT Thoracic Surgery (Cardiothoracic Vascular Surgery); ATTEND Thoracic Surgery (Cardiothoracic Vascular Surgery)
PROC: 07B70ZX Excision of Thorax Lymphatic, Open Approach, Diagnostic (ICD-10-PCS; 2016-05-31)
PROC: 0BBC0ZZ Excision of Right Upper Lung Lobe, Open Approach (ICD-10-PCS; principal; 2016-05-31 08:30)
DX: C34.11 Malignant neoplasm of upper lobe, right bronchus or lung (principal); J86.9 Pyothorax without fistula; J18.9 Pneumonia, unspecified organism; J85.1 Abscess of lung with pneumonia; J96.01 Acute respiratory failure with hypoxia; J95.830 Postprocedural hemorrhage of a respiratory system organ or structure following a respiratory system procedure; Z68.41 Body mass index [BMI] 40.0-44.9, adult; E66.01 Morbid (severe) obesity due to excess calories; M10.9 Gout, unspecified; E11.9 Type 2 diabetes mellitus without complications; I10 Essential (primary) hypertension; J44.9 Chronic obstructive pulmonary disease, unspecified; E78.5 Hyperlipidemia, unspecified; F32.9 Major depressive disorder, single episode, unspecified; I50.9 Heart failure, unspecified; I48.91 Unspecified atrial fibrillation; D64.9 Anemia, unspecified; Z88.0 Allergy status to penicillin; N19 Unspecified kidney failure; G47.33 Obstructive sleep apnea (adult) (pediatric)

== ENCOUNTER 2016-06-24 16:25 | Inpatient (IN) | payer MEDICARE, MEDICAID ==
[~2016-06-24] VITALS: Ht 167.6 cm; Wt 112.1 kg
[~2016-06-24 16:25] MED LIST changes: +BACT800T5 PO; +DIGO0.25 PO; -LR 1,000 ML IV SCH; -VANCOMYCIN HCL 1,000 MG, VIAL MATE ADAPTER 1 EACH in D5W 250 ML IV ONE
--- NOTE | 2016-06-24 17:10 | REP ---
CHEST, ONE VIEW: HISTORY: Shortness of breath. COMPARISON: 06/18/2016. There is loss of volume of the right hemithorax. There is elevation of the right hemidiaphragm. Bilateral infiltrates are present in the lungs, slightly increased in the left upper lobe. The heart is normal in size. The pulmonary vasculature is obscured by the density in the lungs. IMPRESSION: Diffuse bilateral infiltrates, increased in the left upper lobe compared to the previous study. Signed by Bassam Cook MD 06/25/2016 08:33 A
[2016-06-24 17:44] LABS: BASO % 0.2 % (0.0-1.0); EOS # 0.1 K/mm3 (0.0-0.50); EOS % 1.1 % (0.0-3.0); LARGE UNSTAINED CELL # 0.2 K/mm3 (0.0-0.4); LARGE UNSTAINED CELL % 2.7 % (0.0-4.0); LYMPH % 10.7 % (24.0-44.0); MEAN CORPUSCULAR HEMOGLOBIN 29.1 pg (27.0-33.0); MEAN CORPUSCULAR HGB CONC 31.9 g/dl (32.0-36.5); MEAN CORPUSCULAR VOLUME 91.1 fl (80.0-96.0); MONO # 0.6 K/mm3 (0.0-0.8); MONO % 8.6 % (0.0-5.0); NEUTROPHILS # 5.6 K/mm3 (1.8-7.7); NEUTROPHILS % 76.7 % (36.0-66.0); PLATELET COUNT, AUTOMATED 304 k/mm3 (150-450); WHITE BLOOD COUNT 7.3 K/mm3 (4.0-10.0)
[2016-06-24 17:58] LABS: ANION GAP 7 MEQ/L (8-16); BLOOD UREA NITROGEN 19 MG/DL (7-18); CALCIUM LEVEL 8.7 MG/DL (8.8-10.2); CARBON DIOXIDE LEVEL 28 MEQ/L (21-32); CHLORIDE LEVEL 101 MEQ/L (98-107); CREATININE FOR GFR 1.18 MG/DL (0.55-1.02); GLOMERULAR FILTRATION RATE 48.2 (>39); GLUCOSE, FASTING 124 MG/DL (83-110); SODIUM LEVEL 136 MEQ/L (136-145)
[2016-06-24] MEDS ORDERED: IPRATROPIUM 0.5MG/ALBUTEROL 2.5MG INH SOL UD 3ML (DUONEB)(J7620) As Ordered ONE (18:23)
[2016-06-24] MEDS ORDERED: FERR325T PO (19:40)
[2016-06-24] MEDS ORDERED: DIGO0.25 PO (19:40)
[2016-06-24] MEDS ORDERED: BACT800T5 PO (19:40)
[2016-06-24] MEDS ORDERED: VENL75TA2 PO (19:40)
[2016-06-24] MEDS ORDERED: DRIS50002 PO (19:40)
[2016-06-24] MEDS ORDERED: OXYC1TAB23 PO (19:40)
--- NOTE | 2016-06-24 20:27 | ECGEPIP ---
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
[2016-06-24] MEDS ORDERED: LevoFLOXacin/DEXTROSE 750 MG/150 ML BAG (J1956) As Ordered ONE (20:54)
[2016-06-24] MEDS: MAGNESIUM OXIDE 400 MG TAB (MAG-OX) PO SCH (21:00)
[2016-06-24] MEDS: LORazepam 0.5 MG TAB PO SCH (21:00)
[2016-06-24] MEDS: ATORVASTATIN 20 MG TAB PO SCH (21:00)
[2016-06-24] MEDS: traZODone 50 MG TAB PO SCH (21:00)
[2016-06-24] MEDS: VENLAFAXINE 37.5 MG TAB PO SCH (21:00)
[2016-06-24] MEDS: ALLOPURINOL 100 MG TAB PO SCH (21:00)
[2016-06-24] MEDS ORDERED: ISOVUE-370 76% 100ML VIAL (Q9967) As Ordered ONE (21:10)
[2016-06-24] MEDS ORDERED: DEXTROSE 50% 50 ML SYRINGE IV PRN (21:30)
[2016-06-24] MEDS ORDERED: IPRATROPIUM 0.5MG/ALBUTEROL 2.5MG INH SOL UD 3ML (DUONEB)(J7620) NEB PRN (21:30)
[2016-06-24] MEDS ORDERED: GLUCOSE 4 GM CHEW TABLET PO PRN (21:30)
[2016-06-24] MEDS ORDERED: GLUCAGON FOR INJ 1 MG VIAL (J1610) SC PRN (21:30)
--- NOTE | 2016-06-24 23:20 | REPUSA ---
CT angiogram of the chest Clinical statement: Chest pain and shortness of breath. Technique: Multiple axial CT images were obtained from the thoracic inlet through the upper abdomen a fter a bolus administration of nonionic intravenous contrast. Coronal and sagittal reconstructions we re also obtained. Comparison: 06/13/2016. Findings: The pulmonary arteries are well-opacified with contrast, with no intraluminal filling defec ts to suggest embolism. The thoracic aorta is unremarkable. Thyroid gland is within normal limits. Th ere is no thoracic lymphadenopathy. There are extensive parenchymal changes as well as interstitial s carring throughout the lungs bilaterally. However, there is increased consolidation with air bronchog cain in the right lower lobe, suspicious for acute pneumonia. The consolidation in the right lung ape x is grossly increased, as the cavitary lesions have slightly decreased in size since the prior study . Limited imaging of the upper abdomen is unremarkable. There are no suspicious osseous lesions. Impression: 1. No evidence of pulmonary embolism. 2. Extensive pulmonary fibrosis and chronic scarring throughout the lungs as described. 3. New increased consolidation in the right lower lobe suspicious for acute pneumonia. 4. Increased consolidation of the right lung apex could represent pneumonia or fluid filling the prev iously demonstrated cavitary lesions. 5. The other CT findings are grossly stable.
[2016-06-25] MEDS ORDERED: FUROSEMIDE 40 MG/4 ML VIAL (J1940) IV SCH
[2016-06-25 00:11] VITALS: O2SAT 93
[2016-06-25] MEDS ORDERED: IPRATROPIUM 0.5MG/ALBUTEROL 2.5MG INH SOL UD 3ML (DUONEB)(J7620) As Ordered ONE ×3 (00:21→15:30)
--- NOTE | 2016-06-25 00:23 | HPE ---
DATE OF ADMISSION: 06/24/2016 PRIMARY CARE PROVIDER: Merlin Patiño IN FILE OPERATOR: Dr. Daley STEM SETTER: Dr. Coulter CARDIOTHORACIC SURGEON: Dr. Alexander CHIEF COMPLAINT: Increasing shortness of breath for approximately a week. HISTORY OF PRESENT ILLNESS: 70-year-old female with history of lung cancer, status post lobectomy by Dr. Alexander approximately a week ago. Has had increasing shortness of breath with nonproductive sputum. No hemoptysis. She denies fevers, chills or rigors. No abdominal pain. No nausea or vomiting. She is tolerating her meals fine. She has noticed decreased exercise tolerance and dyspnea on exertion. PAST MEDICAL HISTORY: Chronic back pain. Congestive heart failure (CHF). Chronic obstructive pulmonary disease (COPD). Diabetes. Gastroesophageal reflux disease (GERD). Hyperlipidemia. Hypertension. Obstructive sleep apnea, on continuous positive airway pressure (CPAP). PAST SURGICAL HISTORY: Cholecystectomy. Hysterectomy. Appendectomy. Disc surgery. Right upper lobe lobectomy. SOCIAL HISTORY: The patient quit smoking in May after smoking 60 years. She denies any alcohol use. No sick contacts. FAMILY HISTORY: Noncontributory. ALLERGIES: PENICILLIN. HOME MEDICATIONS: - Spiriva HandiHaler as directed daily - ProAir inhaler every 6 hours - Advair Diskus 500/50 mcg inhaler two puffs daily - fluticasone nasal spray twice a day - omeprazole 40 mg daily - ranitidine 150 mg daily - Synthroid 50 mcg daily - NovoLog sliding scale with meals. - Lantus 90 units in the morning, 80 units at night - potassium chloride, unknown dose three times daily - trazodone 100 mg daily - metolazone unknown dose weekly - aspirin 81 mg daily - lisinopril 10 mg daily - Lipitor 40 mg daily - allopurinol 100 mg nightly - Lasix 80 mg in the morning and 40 mg at noon - magnesium oxide 400 mg daily - Colace 100 mg daily - vitamin D 1.25 mg weekly - tramadol 50 mg every 6 hour as needed - fish oil three times a day - Cymbalta/duloxetine, unknown dose at noon. REVIEW OF SYSTEMS: Constitutional: She denies fevers, chills or rigors. She has had increasing shortness breath as outlined above. No change in appetite. HEENT: She denies headache, lightheaded, dizziness, blurry vision, double vision or tinnitus. No difficulty with speech or swallow. Pulmonary: Increased shortness of breath with expiratory wheeze. She is status post right upper lobe lobectomy with Dr. Alexander approximately a week ago. Cardiovascular: She denies substernal chest pain. No paroxysmal nocturnal dyspnea (PND). No orthopnea. GI: Bowel movements are regular. She denies any hematochezia or melena. : No dysuria, frequency or hematuria. Musculoskeletal: No bone, muscle or joint pain, swelling or erythema. Neurologic: No paresthesias or paralysis. Endocrine: Positive for diabetes. Negative for thyroid disorder. Hematology: no history of bleeding or bruising issues. No history of venous thromboembolism. Oncology: Positive for lung cancer status post lobectomy. Psychiatric: Positive for depression. PHYSICAL EXAMINATION: Temperature is 98.7, respiratory rate is 18, pulse is 86, blood pressure 142/64, SPO2 94% on 2 liters. General: The patient appears to be in no acute distress. She is alert and oriented, pleasant to talk to. HEENT: Head is atraumatic, normocephalic. No sternocleidomastoid retraction, and she is able to speak in complete sentences. Throat is clear. Lungs: Intermittent expiratory wheeze with prolonged expiratory phase. Heart: Regular rate and rhythm. Abdomen: Soft. Extremities: No edema. No calf tenderness. Neurologic: Cranial nerves II-XII grossly intact. LABORATORY DATA: White count 7.3, hemoglobin 9.9, platelets 304,000. Sodium 136, potassium 5.0, chloride 101, bicarbonate 28, anion gap 7, BUN is 19, creatinine 1.18, glucose 124, CK 44, CK-MB is 2.3, troponin less than 0.02 and BNP is 393. Influenza A and B are negative. Blood cultures pending times two. Chest x-ray, two-view, does appear to have some acute on chronic patchy infiltration noted in the left lower lung field, right lower lung field. There is what appears to be diminished lung volume noted on the right. No sign of pleural effusion. No deviation of the trachea. No cardiomegaly. CT angio of the chest is pending at this time, and I did discuss the case with Dr. Alexander who recently do a lobectomy on her. 12-lead EKG: Sinus rhythm with a ventricular rate of 84. No acute ST-T wave abnormality. IMPRESSION: Ms. Caal is a 70-year-old female presents to the emergency department with increased shortness of breath, hypoxia requiring some oxygen supplementation and possibly chronic obstructive pulmonary disease exacerbation. Hospitalist was called for admission for possible development of pneumonia. However, the patient does not have any signs of infection, normal white count and will go ahead and check a CT angio of the chest. PROBLEM LIST: 1. Hypoxia 2. Chronic obstructive pulmonary disease exacerbation. 3. History of congestive heart failure with elevated BNP. 4. History of lung cancer status post right upper lobe lobectomy. 5. Diabetes. 6. Hypertension. 7. Hyperlipidemia. 8. Chronic low back pain. PLAN: The patient admitted to the progressive care unit (PCU) per Dr. Gabriel. Levaquin, steroids, DuoNebs. Will give her a dose of 40 mg of Lasix times one now. Sputum and blood cultures pending. PA and lateral chest x-ray as indicated above. CT angio of the chest is pending. Continue her home medications. I did speak with Dr. Alexander who will see the patient on consult tomorrow morning. However, he will be following her CT angio later this evening. Deep vein thrombosis (DVT) prophylaxis with subcu heparin. DISPOSITION: Noting that this may be her new baseline shortness of breath lung function due to having a recent lobectomy and underlying COPD. IWLMARD
[2016-06-25 00:24] LABS: ABG BASE EXCESS -0.3 (-2.0-2.0); ABG HCO3 23.7 MEQ/L (22.0-26.0); ABG PARTIAL PRESSURE CO2 36.2 mmHg (35.0-45.0); ABG PARTIAL PRESSURE O2 71.2 mmHg (75.0-100.0); ABG STANDARD HCO3 24.2 MEQ/L (22.0-26.0); ABG TOTAL CO2 24.8 MEQ/L (23.0-31.0); ABG pH (ARTERIAL) 7.433 UNITS (7.350-7.450)
[2016-06-25] MEDS: IPRATROPIUM 0.5MG/ALBUTEROL 2.5MG INH SOL UD 3ML (DUONEB)(J7620) NEB SCH ×3 (00:24→15:32)
[2016-06-25] MEDS ORDERED: MAGNESIUM OXIDE 400 MG TAB (MAG-OX) As Ordered ONE (03:02)
[2016-06-25] MEDS ORDERED: LORazepam 1 MG TAB As Ordered ONE ×2 (03:03→09:45)
[2016-06-25] MEDS ORDERED: ATORVASTATIN 20 MG TAB As Ordered ONE (03:03)
[2016-06-25] MEDS ORDERED: traZODone 50 MG TAB As Ordered ONE (03:22)
[2016-06-25] MEDS: LEVOTHYROXINE 0.05 MG TAB (50 MCG) PO SCH (06:00)
[2016-06-25 06:13] LABS: BASO % 0.1 % (0.0-1.0); EOS # 0.1 K/mm3 (0.0-0.50); EOS % 1.3 % (0.0-3.0); LARGE UNSTAINED CELL # 0.2 K/mm3 (0.0-0.4); LARGE UNSTAINED CELL % 2.6 % (0.0-4.0); LYMPH # 0.8 K/mm3 (1.5-4.5); MEAN CORPUSCULAR HEMOGLOBIN 28.9 pg (27.0-33.0); MEAN CORPUSCULAR HGB CONC 31.9 g/dl (32.0-36.5); MEAN CORPUSCULAR VOLUME 90.8 fl (80.0-96.0); MONO # 0.6 K/mm3 (0.0-0.8); MONO % 9.7 % (0.0-5.0); NEUTROPHILS # 4.6 K/mm3 (1.8-7.7); NEUTROPHILS % 75.4 % (36.0-66.0); PLATELET COUNT, AUTOMATED 288 k/mm3 (150-450); RED CELL DISTRIBUTION WIDTH 15.1 % (11.5-14.5)
[2016-06-25 06:30] LABS: CALCIUM LEVEL 8.3 MG/DL (8.8-10.2); CREATININE FOR GFR 1.16 MG/DL (0.55-1.02); GLOMERULAR FILTRATION RATE 49.2 (>39); POTASSIUM SERUM 4.9 MEQ/L (3.5-5.1)
[2016-06-25 08:00] VITALS: BP_SYST 146; BP_SYST 190; BP_DIAS 70; BP_DIAS 80
[2016-06-25] MEDS: TIOTROPIUM INHALER/CAPSULE (SPIRIVA) INH SCH (08:00)
[2016-06-25] MEDS ORDERED: HumaLOG INSULIN (NovoLOG) PER UNIT As Ordered ONE ×2 (08:19→12:24)
--- NOTE | 2016-06-25 08:33 | REP ---
AP SITTING VIEW OF THE CHEST: On the present study, there are two views. The heart and great vessels are unremarkable. In the right upper lung is an area of triangular type density. The lung markings at the bases are very prominent. On the lateral plane, there is a somewhat homogeneous density probably in the left lower lobe. There are skeletal changes which are age related. Remaining examination is unremarkable. IMPRESSION: The findings are consistent with inflammatory process or pneumonia. However, this patient should have a CT study for further assessment. Edited 06/25/2016 [facility] [id number] MTDD
[2016-06-25] MEDS: HumaLOG INSULIN (NovoLOG) PER UNIT SC SCH ×4 (08:39→23:20)
[2016-06-25] MEDS ORDERED: FUROSEMIDE 40 MG TAB PO SCH (09:00)
[2016-06-25] MEDS: POTASSIUM CHLORIDE 10 MEQ SR TABLET PO SCH ×2 (09:53→21:43)
[2016-06-25] MEDS: VENLAFAXINE 37.5 MG TAB PO SCH ×2 (09:53→21:43)
[2016-06-25] MEDS: FAMOTIDINE 20 MG TAB PO SCH (09:54)
[2016-06-25] MEDS: DIGOXIN 0.25 MG TAB PO SCH (09:54)
[2016-06-25] MEDS: LISINOPRIL 10 MG TAB PO SCH (09:54)
[2016-06-25] MEDS: CALCIUM/VITAMIN D 500 MG TAB PO SCH (09:54)
[2016-06-25] MEDS: PANTOPRAZOLE 40MG TAB (PROTONIX) PO SCH (09:55)
[2016-06-25] MEDS: ASPIRIN 81 MG ENTERIC TAB PO SCH (09:55)
[2016-06-25] MEDS: LORazepam 0.5 MG TAB PO SCH ×2 (09:55→21:43)
[2016-06-25] MEDS: FERROUS SULFATE 325MG TAB PO SCH (09:55)
[2016-06-25] MEDS: DULoxetine 30 MG CAP (CYMBALTA) PO SCH (09:55)
[2016-06-25] MEDS: MAGNESIUM OXIDE 400 MG TAB (MAG-OX) PO SCH ×3 (09:55→21:44)
[2016-06-25] MEDS: ADVAIR DISKUS 500/50 INH PWD INH SCH ×2 (09:58→20:36)
--- NOTE | 2016-06-25 10:57 | REP ---
Clinical: Shortness of breath. Technique: PA and lateral. Comparison: 06/24/2016. Findings: Diffuse bilateral infiltrates are again appreciated and essentially unchanged. Pleural effusion cannot be excluded. No pneumothorax. Skeletal structures intact. No evidence for cardiomegaly. Impression: Multifocal infiltrates unchanged from prior examination. Signed by Ki Garcia MD 06/25/2016 10:48 A
[2016-06-25 12:00] VITALS: BP 144/57
[2016-06-25] MEDS ORDERED: FUROSEMIDE 20 MG TAB PO SCH (12:00)
[2016-06-25] MEDS ORDERED: methylPREDNISolone INJ 125 MG/2 ML VIAL (J2930) As Ordered ONE (12:24)
[2016-06-25] MEDS ORDERED: FUROSEMIDE 20 MG TAB As Ordered ONE (12:24)
[2016-06-25] MEDS: methylPREDNISolone INJ 125 MG/2 ML VIAL (J2930) IV SCH ×3 (12:27→23:20)
[2016-06-25] MEDS ORDERED: VANCOMYCIN HCL 1,000 MG, VIAL MATE ADAPTER 1 EACH in D5W 250 ML IV SCH (14:45)
[2016-06-25 15:03] LABS: FERRITIN 455 NG/ML (8-252); PERCENT SATURATION 15.5 % (13.2-37.4); TOTAL IRON BINDING CAPACITY 142 UG/DL (250-450)
[2016-06-25 15:25] LABS: RETIC HEMOGLOBIN CONTENT CHr 25.6 PG (24-36); RETICULOCYTE ABSOLUTE ADVIA212 95 x10(9)/L (17-77)
[2016-06-25 16:00] VITALS: BP_SYST 137; BP_SYST 154; BP_DIAS 63; BP_DIAS 67
--- NOTE | 2016-06-25 16:51 | PHACANCOPD ---
PHARMACY VANCOMYCIN DOSING Pt Demographics Demographics Patient Age:70 , Weight:115.500 , Gender: female Adjusted Body Weight Date: 06/25/16, Adjusted Body Weight: Kg Events Past 24 Hours Events Past 24 Hours: NO: Change in CrCl, Dialysis, Diuretic Therapy, Elevation in WBC, Fever, Other, Pending Diagnostics, Pending Procedures Vancomycin Vancomycin indication: HCAP Vancomycin Target Ranges: 10-20 mcg/ml Vancomycin Load Y/N: Yes Load Dose Date Time Vancomycin Load Dose: 1250MG Date: 06/25/2015 Time:1800 Vancomycin Dose Date: 06/26/16. Current Vancomycin Dose: [750MG IV Q12H @ 0600] Intermittent Dosing?: No Labs Labs Item Value Date Time White Blood Count 7.3 K/mm3 06/24/16 1717 White Blood Count 6.0 K/mm3 06/25/16 0603 Creatinine 1.18 MG/DL H 06/24/16 1717 Creatinine 1.16 MG/DL H 06/25/16 0603 Micro Microbiology 06/24/16 Blood Culture, Received Pending 06/24/16 Blood Culture, Received Pending 06/25/16 Gram Stain, Received Pending 06/25/16 Sputum Culture, Received Pending 06/25/16 Respiratory Virus Panel (PCR) (PIA) - Final, Complete 06/24/16 Influenza Virus Type A Antigen - Final, Complete 06/24/16 Influenza Virus Type B Antigen - Final, Complete Creatinine Clearance Date:06/25/16. Creatinine Clearance: [45ML/MIN]. Pending Labs VANCO TROUGH 06/27 @ 0500 Assessment and Plan Maintaining Current Dose?: Yes Reason for dose change: No Dose Change Pharmacist Note Pharmacist Note Date: 06/25/16. Pharmacist note: Vanco 1250mg IV @ 1800 followed in 12 hours with 750mg IV Q12H @ 0600. Patients cultures are currently pending. Patient produced a therapeutic trough with a similar regimen 1 month ago. Monitor renal function and adjust dose as needed. Trough is scheduled after 3 doses ( @ 0500) [facility] Jun 25, 2016 16:51
--- NOTE | 2016-06-25 16:51 | EDDOCDS ---
Physician Documentation [facility] Name: Dacia Caal Age: 70 yrs Sex: Female : 1945 Arrival Date: 06/24/2016 Time: 16:25 Bed Admit Hold Private MD: Moiz Coulter; Malik Daley; Merlin Aceves Disposition: 06/24/16 20:39 Hospitalization ordered by Odilon Johnston for Inpatient Admission. Preliminary diagnosis is Pneumonia, unspecified organism. - [facility] - Status is Inpatient Admission. mcp - Condition is Stable. - Problem is new. - Symptoms are unchanged. Historical: - Allergies: PENICILLINS; - Home Meds: 1. Spiriva with HandiHaler 18 mcg Inhl CpDv once daily 2. ProAir HFA 90 mcg/actuation inhalation HFAA every 6 hours 3. Advair Diskus 500-50 mcg/dose Inhl dsdv 1 puff 2 times per day 4. fluticasone 50 mcg/actuation nasal spsn 2 sprays 2 times per day 5. esomeprazole 50 mg daily 6. ranitidine HCl 150 mg Oral tab 1 tab once daily 7. levothyroxine 50 mcg Oral cap 1 cap once daily 8. Novolog 100 unit/mL Sub-Q soln 10 unit with each meal 9. Lantus 100 unit/mL Sub-Q crtg 90 units in the am 85 units at night. 10. Potassium Chloride Unknown Oral 3 caps 3 times per day 11. trazodone 100 mg Oral tab 1 tab at bedtime 12. metolazone oral Unknown oral once a week 13. aspirin 81 mg oral tab 1 tab once daily 14. prever vision areds Unknown Unknown twice a day (Last dose: 06/24/2016) 15. lisinopril 10 mg Oral tab 1 tab once daily 16. atorvastatin 40 mg oral tab 1 tab once daily 17. allopurinol 100 mg Oral tab nightly 18. vitafusion vitamins Unknown 2 tab daily 19. furosemide 80 mg Oral tab 1 tab in am 20. furosemide 40 mg Oral tab 1 tab at noon 21. beta carotene 25,000 unit oral cap daily 22. magnesium oxide 400 mg Oral cap daily 23. Colace 100 mg oral cap 1 cap as needed 24. allergy tabs Unknown Unknown daily 25. Vitamin D 1.25 mg Oral weekly 26. tramadol 50 mg Oral tab no more than 4 a day 27. Fish Oil 1200 mg Oral three times a day 28. cymbalta/duloxetine 3 mg at noon - PMHx: back pain; CHF; COPD; Diabetes - IDDM: uncontrolled; GERD; Hypercholesterolemia; Hypertension; Pneumonia; sleep apnea with c pap; - PSHx: Cholecystectomy; Hysterectomy; Appendectomy; Disc surgery; Lobectomy- RUL; - Social history: Smoking status: Patient states former smoker of tobacco. No barriers to communication noted, The patient speaks fluent [place]ut[place]. - Family history: No immediate family members are acutely ill. - : The pt / caregiver states he / she is not on anticoagulants. Home medication list is obtained from the patient. - Exposure Risk Screening:: None identified. Vital Signs: 06/24 16:31 Pulse 94 MON; Resp 20; Pulse Ox 70% on R/A; hs1 16:32 BP 157 / 72 (auto/); hs1 16:33 Pulse 88 MON; Pulse Ox 89% ; hs1 16:37 BP 137 / 57 (auto/); hs1 16:37 Pulse 86 MON; Resp 20; Pulse Ox 93% 3 lpm ; hs1 16:51 Pulse 86 MON; Pulse Ox 92% ; hs1 16:52 BP 137 / 60 (auto/); hs1 17:07 BP 143 / 65 (auto/); af2 17:22 Pulse 85; Resp 18; Temp 98.7(O); Pulse Ox 91% ; Weight 116.12 kg / 256 lbs (R); Height hs1 5 ft. 6 in. (167.64 cm) (R); 19:07 BP 142 / 64 (auto/); af2 19:07 Pulse 86 MON; Resp 18 S; Pulse Ox 94% on 2 lpm NC; af2 20:52 BP 142 / 63 (auto/); af2 20:52 Pulse 96 MON; Resp 18 S; Pulse Ox 93% on 3 lpm NC; af2 21:52 BP 135 / 60 (auto/); af2 21:52 Pulse 90 MON; Resp 18 S; Pulse Ox 95% on 3 lpm NC; af2 22:07 BP 141 / 60 (auto/); af2 22:07 Pulse 88 MON; Resp 18 S; Pulse Ox 96% on 3 lpm NC; af2 23:04 BP 144 / 69 (auto/); af2 23:06 Pulse 92 MON; Resp 18 S; Pulse Ox 90% on 3 lpm NC; af2 06/25 00:04 BP 135 / 61 (auto/); af2 00:04 Pulse 82 MON; Resp 18 S; Pulse Ox 93% on 3 lpm NC; af2 02:12 BP 149 / 67 (auto/); mv5 02:13 Pulse 86 MON; Pulse Ox 92% on 3 lpm NC; mv5 03:16 BP 157 / 70 (auto/); mv5 03:16 Pulse 86 MON; Pulse Ox 94% on 3 lpm NC; mv5 03:46 BP 134 / 63 (auto/); mv5 03:46 Pulse 86 MON; Pulse Ox 93% on 3 lpm NC; mv5 04:16 BP 159 / 69 (auto/); mv5 04:17 Pulse 86 MON; Pulse Ox 94% on 3 lpm NC; mv5 04:46 BP 139 / 59 (auto/); mv5 04:46 Pulse 84 MON; Pulse Ox 95% on 3 lpm NC; mv5 05:16 BP 145 / 64 (auto/); mv5 05:16 Pulse 86 MON; Pulse Ox 92% on 3 lpm NC; mv5 05:46 BP 150 / 63 (auto/); mv5 05:46 Pulse 86 MON; Pulse Ox 93% on 3 lpm NC; mv5 06:16 BP 147 / 64 (auto/); mv5 06:16 Pulse 84 MON; Pulse Ox 92% on 3 lpm NC; mv5 06/24 17:22 Body Mass Index 41.32 (116.12 kg, 167.64 cm) hs1 MDM: 06/24 16:31 -Blood Culture (Adults Only), peripheral from different site, or from device/port/PICC sd1 etc. if present ordered. 16:31 [employer]i Bak[employer] Clerk/Pulse Ox/q 15 min VS ordered. sd1 16:31 IV Saline Lock ordered. sd1 16:31 Oxygen at 4L/Min NC or Home dosage ordered. sd1 16:31 Rhythm Strip to chart ordered. sd1 16:32 B-Type Natiuretic Peptide Ordered. EDMS 16:32 Basic Metabolic Profile Ordered. EDMS 16:32 CBC with Diff Ordered. EDMS 16:32 Cardiac Injury Profile Ordered. EDMS 16:32 Troponin Ordered. EDMS 16:32 -Blood Culture Ordered. EDMS 16:32 Chest, 1 View Ordered. EDMS 16:32 ECG WITH READING ER PHYS+CARDIAG ordered. EDMS 16:45 BLOOD CULTURES Ordered. EDMS 16:49 -Blood Culture (Adults Only), peripheral from different site, or from device/port/PICC mt4 etc. if present complete. 16:57 -Influenza A&B Rapid Antigen - Nose Ordered. EDMS 17:15 Oral Temp ordered. br1 18:06 B-Type Natiuretic Peptide Reviewed. br1 18:06 Basic Metabolic Profile Reviewed. br1 18:06 CBC with Diff Reviewed. br1 18:06 Cardiac Injury Profile Reviewed. br1 18:06 Troponin Reviewed. br1 18:06 -Influenza A&B Rapid Antigen - Nose Reviewed. br1 18:06 Chest, 1 View Reviewed. br1 18:10 Call Respiratory ordered. br1 18:10 Albuterol-Ipratropium 3 ml Inhalation once ordered. br1 18:12 BED REQUEST+ADM ordered. EDMS 18:13 Call Respiratory complete. mt4 18:14 Financial registration complete. zo 18:29 PCR was scanned into [employer] and attached to record. mt4 18:30 PCR was scanned into [employer] and attached to record. mt4 18:44 [facility] [place] Payment Agreement was scanned into [employer] and attached to record. zo 20:37 levofloxacin 750 mg IVPB once over 90 mins ordered. br1 21:03 CT ANGIO CHEST Ordered. EDMS 21:04 Chest, 2 view PA, Lat Ordered. EDMS 21:24 BASIC METABOLIC PROFILE Ordered. EDMS 21:25 PHYSICAL THERAPY EVAL & TREAT ordered. EDMS 21:27 CONSISTENT CARBOHYDRATES ordered. EDMS 21:50 SPUTUM CULTURE AND GRAM STAIN Ordered. EDMS 23:44 Chest, 2 view PA, Lat Ordered. EDMS 23:44 Chest, 2 view PA, Lat Ordered. EDMS 23:44 Chest, 2 view PA, Lat Ordered. EDMS 23:44 Chest, 2 view PA, Lat Ordered. EDMS 23:44 Chest, 2 view PA, Lat Ordered. EDMS 23:44 Chest, 2 view PA, Lat Ordered. EDMS 23:44 Chest, 2 view PA, Lat Ordered. EDMS 23:45 Chest, 2 view PA, Lat Ordered. EDMS 23:45 Chest, 2 view PA, Lat Ordered. EDMS 23:45 Chest, 2 view PA, Lat Ordered. EDMS 23:48 ARTERIAL BLOOD GAS Ordered. EDMS 23:48 CBC WITH DIFFERENTIAL Ordered. EDMS 06/25 02:57 Admission / Observation Status ordered. EDMS 11:21 RESPIRATORY PANEL Ordered. EDMS 12:36 SPUTUM CULTURE AND GRAM STAIN Ordered. EDMS 14:48 FERRITIN Ordered. EDMS 14:48 TOTAL IRON BINDING CAPACIT Ordered. EDMS 14:51 RETICULOCYTE COUNT Ordered. EDMS Administered Medications: 06/24 18:33 Drug: Albuterol-Ipratropium 3 ml [ipratropium-albuterol 0.5 mg-3 mg(2.5 mg base)/3 mL cs15 nebulization soln (3 mL)] Route: Inhalation; 20:59 Drug: levofloxacin 750 mg [levofloxacin 750 mg/150 mL in 5 % dextrose intravenous mv5 piggyback] Route: IVPB; Infused Over: 90 mins; Site: left antecubital; 22:30 Follow up: IV Status: Completed infusion mv5 Signatures: Dispatcher [employer] EDThea Dailey MD MD sdErica Nick RN RN mcp Tana Canales Brian, MD MD br1 Anaya Shankar mt4 Roberto Donnelly RN RN mb9 Andreas Baez RN RN mts Dominga Holley RN RN mv5 Ren Jaeger RT cs15 The chart was reviewed and I authenticate all verbal orders and agree with the evaluation and treatment provided.Corrections: (The following items were deleted from the chart) 23:52 21:24 COMPLETE BLOOD COUNT ordered. EDDE EDMS 06/25 14:48 14:45 FERRITIN ordered. EDMS EDMS 14:48 14:45 TOTAL IRON BINDING CAPACIT ordered. EDMS EDMS 14:48 14:45 IRON (FE) ordered. EDMS EDMS 14:51 14:46 RETICULOCYTE COUNT ordered. EDMS EDMS 15:01 06/24 23:48 RESPIRATORY PANEL ordered. EDDE EDMS Attachments: 18:44 [facility] Payment Agreement zo MTDD
--- NOTE | 2016-06-25 16:51 | EDDOCDS ---
Nurse's Notes [facility] Name: Pineda Valderrama Age: 70 yrs Sex: Female : 1945 Arrival Date: 06/24/2016 Time: 16:25 Bed Admit Hold Private MD: Moiz Coulter; Malik Daley; Merlin Aceves Diagnosis: Pneumonia, unspecified organism Presentation: 06/24 16:29 Presenting complaint: EMS states: "Pt had a right upper lobectomy done about a week mb9 ago. Shes been been progressively short of breath with exertion. When we got on scene the pt was wood and her room sat was 70%. We put her on 6 litres and she came up to 98-99%. Her fsbs was 149". Suicide/Homicide risk assessment- the patient denies having any suicidal and/or homicidal ideations and does not present with any other emotional, behavioral or mental health complaints. 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 Transition of care: patient was not received from another setting of care. 16:29 Acuity: VIVIEN Level 3 mb9 16:29 Method Of Arrival: Ambulance mb9 Triage Assessment: 16:33 General: Appears in no apparent distress. Pain: Denies pain. Neurological: No deficits hs1 noted. Cardiovascular: Rhythm is sinus rhythm. Respiratory: Onset: The symptoms/episode began/occurred gradually, Airway is patent Respiratory effort is unlabored, Respiratory pattern is regular, symmetrical, Breath sounds with crackles bilaterally. Derm: Skin is pink, warm & dry. normal. Historical: - Allergies: PENICILLINS; - Home Meds: 1. Spiriva with HandiHaler 18 mcg Inhl CpDv once daily 2. ProAir HFA 90 mcg/actuation inhalation HFAA every 6 hours 3. Advair Diskus 500-50 mcg/dose Inhl dsdv 1 puff 2 times per day 4. fluticasone 50 mcg/actuation nasal spsn 2 sprays 2 times per day 5. esomeprazole 50 mg daily 6. ranitidine HCl 150 mg Oral tab 1 tab once daily 7. levothyroxine 50 mcg Oral cap 1 cap once daily 8. Novolog 100 unit/mL Sub-Q soln 10 unit with each meal 9. Lantus 100 unit/mL Sub-Q crtg 90 units in the am 85 units at night. 10. Potassium Chloride Unknown Oral 3 caps 3 times per day 11. trazodone 100 mg Oral tab 1 tab at bedtime 12. metolazone oral Unknown oral once a week 13. aspirin 81 mg oral tab 1 tab once daily 14. prever vision areds Unknown Unknown twice a day (Last dose: 06/24/2016) 15. lisinopril 10 mg Oral tab 1 tab once daily 16. atorvastatin 40 mg oral tab 1 tab once daily 17. allopurinol 100 mg Oral tab nightly 18. vitafusion vitamins Unknown 2 tab daily 19. furosemide 80 mg Oral tab 1 tab in am 20. furosemide 40 mg Oral tab 1 tab at noon 21. beta carotene 25,000 unit oral cap daily 22. magnesium oxide 400 mg Oral cap daily 23. Colace 100 mg oral cap 1 cap as needed 24. allergy tabs Unknown Unknown daily 25. Vitamin D 1.25 mg Oral weekly 26. tramadol 50 mg Oral tab no more than 4 a day 27. Fish Oil 1200 mg Oral three times a day 28. cymbalta/duloxetine 3 mg at noon - PMHx: back pain; CHF; COPD; Diabetes - IDDM: uncontrolled; GERD; Hypercholesterolemia; Hypertension; Pneumonia; sleep apnea with c pap; - PSHx: Cholecystectomy; Hysterectomy; Appendectomy; Disc surgery; Lobectomy- RUL; - Social history: Smoking status: Patient states former smoker of tobacco. No barriers to communication noted, The patient speaks fluent [place]guill[place]. - Family history: No immediate family members are acutely ill. - : The pt / caregiver states he / she is not on anticoagulants. Home medication list is obtained from the patient. - Exposure Risk Screening:: None identified. Screenin/21 04:27 Screening information is obtained from the patient. Fall risk: No risks identified. mv5 Assistance ADL's: requires no assistance with activities of daily living. Abuse/DV Screen: The patient / caregiver reports he/she is: not in a situation that causes fear, pain or injury. Nutritional screening: No deficits noted. home support is adequate. 15:58 Advance Directives: Currently, there is a health care proxy, Tim Villanueva. There is no aa3 active DNR order. Assessment: 06/24 17:41 General: Appears in no apparent distress, Behavior is appropriate for age, cooperative. hs1 Neurological: Level of Consciousness is awake, alert, obeys commands. Cardiovascular: Rhythm is sinus rhythm No ectopy. Cardiovascular: Capillary refill < 3 seconds Chest pain is denied. Respiratory: Airway is patent Respiratory effort is even, unlabored, Respiratory pattern is symmetrical, Breath sounds with crackles bilaterally. Reports shortness of breath on exertion. Derm: Skin is pink, warm & dry. normal, Reports burning, under neath right thigh. No redness and swelling noted. 18:27 General: Appears in no apparent distress, comfortable, Behavior is appropriate for age, hs1 cooperative. Pain: Denies pain. Neurological: Level of Consciousness is awake, alert, obeys commands. Respiratory: Airway is patent Respiratory effort is even, unlabored, Respiratory pattern is regular, symmetrical. GI: No deficits noted. Derm: Skin is pink, warm & dry. normal. 19:07 General: Appears in no apparent distress, comfortable, Behavior is appropriate for age, af2 cooperative, Assumed care of pt at this time, pt requests meal at this time. Per Dr. Baugh, pt allowed to have meal tray which is provided at this time. Offers no other complaints. Seated upright on stretcher.. Neurological: Level of Consciousness is awake, alert, obeys commands. Cardiovascular: Capillary refill < 3 seconds Rhythm is sinus rhythm No ectopy. Respiratory: Airway is patent Respiratory effort is even, unlabored, Respiratory pattern is regular, symmetrical, Breath sounds with crackles bilaterally. in left lower lobe, right lower lobe, left posterior lower lobe and right posterior lower lobe. Derm: Skin is normal. 20:00 General: Appears in no apparent distress, comfortable, Behavior is appropriate for age, af2 cooperative, pt seated on stretcher resting quietly, offers no complaints.. 21:08 General: assisted with urination at this time.. af2 22:00 General: Appears in no apparent distress, comfortable, Behavior is appropriate for age, af2 cooperative. Neurological: Level of Consciousness is awake, alert, obeys commands. Respiratory: Airway is patent Respiratory effort is even, unlabored. Derm: Skin is normal. 23:00 General: Appears in no apparent distress, comfortable, Behavior is appropriate for age, af2 cooperative. Neurological: Level of Consciousness is awake, alert, obeys commands. Respiratory: Airway is patent Respiratory effort is even, unlabored. 06/25 00:29 General: Appears in no apparent distress, comfortable, Behavior is appropriate for age, af2 cooperative. Neurological: Level of Consciousness is awake, alert, obeys commands. Respiratory: Airway is patent Respiratory effort is even, unlabored. Derm: Skin is normal. 03:14 General: Appears in no apparent distress, comfortable, Behavior is cooperative, mv5 pleasant. Neurological: Level of Consciousness is awake, alert, Oriented to person, place, time, Moves all extremities. Speech is normal, Facial symmetry appears normal. Cardiovascular: Rhythm is sinus rhythm No ectopy. Derm: Skin is pink, warm & dry. 04:26 General: Appears in no apparent distress, to be sleeping. Cardiovascular: Rhythm is mv5 sinus rhythm No ectopy. Respiratory: Airway is patent Respiratory effort is even, unlabored, Respiratory pattern is regular, symmetrical. Derm: Skin is pink, warm & dry. 05:31 General: Appears in no apparent distress, to be sleeping. Cardiovascular: Rhythm is mv5 sinus rhythm No ectopy. Respiratory: Airway is patent Respiratory effort is even, unlabored, Respiratory pattern is regular, symmetrical. Derm: Skin is pink, warm & dry. 06:37 General: Appears in no apparent distress, to be sleeping. Cardiovascular: Rhythm is mv5 sinus rhythm No ectopy. Respiratory: Airway is patent Respiratory effort is even, unlabored, Respiratory pattern is regular, symmetrical. Derm: Skin is pink, warm & dry. Vital Signs: 06/24 16:31 Pulse 94 MON; Resp 20; Pulse Ox 70% on R/A; hs1 16:32 BP 157 / 72 (auto/); hs1 16:33 Pulse 88 MON; Pulse Ox 89% ; hs1 16:37 BP 137 / 57 (auto/); hs1 16:37 Pulse 86 MON; Resp 20; Pulse Ox 93% 3 lpm ; hs1 16:51 Pulse 86 MON; Pulse Ox 92% ; hs1 16:52 BP 137 / 60 (auto/); hs1 17:07 BP 143 / 65 (auto/); af2 17:22 Pulse 85; Resp 18; Temp 98.7(O); Pulse Ox 91% ; Weight 116.12 kg (R); Height 5 ft. 6 hs1 in. (167.64 cm) (R); 19:07 BP 142 / 64 (auto/); af2 19:07 Pulse 86 MON; Resp 18 S; Pulse Ox 94% on 2 lpm NC; af2 20:52 BP 142 / 63 (auto/); af2 20:52 Pulse 96 MON; Resp 18 S; Pulse Ox 93% on 3 lpm NC; af2 21:52 BP 135 / 60 (auto/); af2 21:52 Pulse 90 MON; Resp 18 S; Pulse Ox 95% on 3 lpm NC; af2 22:07 BP 141 / 60 (auto/); af2 22:07 Pulse 88 MON; Resp 18 S; Pulse Ox 96% on 3 lpm NC; af2 23:04 BP 144 / 69 (auto/); af2 23:06 Pulse 92 MON; Resp 18 S; Pulse Ox 90% on 3 lpm NC; af2 06/25 00:04 BP 135 / 61 (auto/); af2 00:04 Pulse 82 MON; Resp 18 S; Pulse Ox 93% on 3 lpm NC; af2 02:12 BP 149 / 67 (auto/); mv5 02:13 Pulse 86 MON; Pulse Ox 92% on 3 lpm NC; mv5 03:16 BP 157 / 70 (auto/); mv5 03:16 Pulse 86 MON; Pulse Ox 94% on 3 lpm NC; mv5 03:46 BP 134 / 63 (auto/); mv5 03:46 Pulse 86 MON; Pulse Ox 93% on 3 lpm NC; mv5 04:16 BP 159 / 69 (auto/); mv5 04:17 Pulse 86 MON; Pulse Ox 94% on 3 lpm NC; mv5 04:46 BP 139 / 59 (auto/); mv5 04:46 Pulse 84 MON; Pulse Ox 95% on 3 lpm NC; mv5 05:16 BP 145 / 64 (auto/); mv5 05:16 Pulse 86 MON; Pulse Ox 92% on 3 lpm NC; mv5 05:46 BP 150 / 63 (auto/); mv5 05:46 Pulse 86 MON; Pulse Ox 93% on 3 lpm NC; mv5 06:16 BP 147 / 64 (auto/); mv5 06:16 Pulse 84 MON; Pulse Ox 92% on 3 lpm NC; mv5 06/24 17:22 Body Mass Index 41.32 (116.12 kg, 167.64 cm) hs1 Vitals: 06/24 16:29 Log In Time N/A - ambulance arrival. mb9 ED Course: 16:26 Patient visited by Anaya Shankar. mt4 16:26 Ana Mariee, HETAL is Primary Nurse. mt4 16:26 Malik Daley MD is Private Physician. mt4 16:26 Moiz Coulter is Private Physician. mt4 16:26 Merlin Aceves is Private Physician. mt4 16:26 Patient moved to Waiting mt4 16:26 Patient moved to 15 mt4 16:32 Triage Initiated mb9 16:35 Massimo Baugh MD is Attending Physician. br1 16:47 Patient visited by Massimo Baugh MD. br1 16:54 Patient visited by Marin Aranda. jml1 16:54 EKG done. (by ED staff). Reviewed by Massimo Baugh MD. jml1 17:21 -Influenza A&B Rapid Antigen - Nose Sent. hs1 17:21 BLOOD CULTURES Sent. hs1 17:21 -Blood Culture Sent. hs1 17:21 B-Type Natiuretic Peptide Sent. hs1 17:22 Basic Metabolic Profile Sent. hs1 17:22 CBC with Diff Sent. hs1 17:22 Cardiac Injury Profile Sent. hs1 17:22 Troponin Sent. hs1 17:39 Patient visited by Avelino Shane RN. jmk 17:44 Chest, 1 View Returned. EDMS 18:26 Patient visited by Ana Mariee, HETAL. hs1 18:29 PCR was scanned into [employer] and attached to record. mt4 18:30 PCR was scanned into [employer] and attached to record. mt4 18:44 [facility] Payment Agreement was scanned into [employer] and attached to record. zo 18:58 Nicki Lambert,RN is Primary Nurse. af2 19:07 Patient visited by Nicki Lambert RN. af2 19:11 Patient visited by Nicki Lambert RN. af2 20:13 Patient visited by Nicki Lambert RN. af2 20:39 Odilon Johnston DO is Hospitalizing Provider. br1 21:08 Patient visited by Nicki Lambert RN. af2 21:08 EKG-ADULT Returned. EDMS 21:09 Patient moved to Radiology sam 21:25 Patient moved to 15 sam 22:31 Patient moved to Admit Hold sls1 23:55 CT ANGIO CHEST Returned. EDMS 06/25 00:20 ARTERIAL BLOOD GAS Sent. bb3 00:32 Patient visited by Nicki Lambert RN. af2 00:45 Primary Nurse role handed off by Nicki Lambert RN sls1 00:46 Primary Nurse role handed off by Ana Mariee RN sls1 02:10 Dominga Holley,RN is Primary Nurse. jmv 02:10 Patient moved to 11 jmv 02:11 Patient moved to Admit Hold nn1 04:27 The patient / caregiver is instructed regarding the plan of care and ED course. mv5 04:27 Inserted saline lock: 18 gauge in left antecubital area and blood collected. The mv5 patient tolerated the procedure well. 08:47 Chest, 1 View Returned. EDMS 08:47 Chest, 2 view PA, Lat Returned. EDMS 11:39 Chest, 2 view PA, Lat Returned. EDMS 15:59 No procedures done that require assistance. aa3 Administered Medications: 06/24 18:33 Drug: Albuterol-Ipratropium 3 ml [ipratropium-albuterol 0.5 mg-3 mg(2.5 mg base)/3 mL cs15 nebulization soln (3 mL)] Route: Inhalation; 20:59 Drug: levofloxacin 750 mg [levofloxacin 750 mg/150 mL in 5 % dextrose intravenous mv5 piggyback] Route: IVPB; Infused Over: 90 mins; Site: left antecubital; 22:30 Follow up: IV Status: Completed infusion mv5 RT: 18:33 Initial Med Neb Given as ordered. Respiratory: Breath sounds with crackles bilaterally. cs15 in left posterior lower lobe and right posterior lower lobe. 06/25 00:19 ABG's drawn from left radial artery pressure held for 5 minutes no bleeding noted bb3 pressure bandage applied specimen sent pt. tolerated well. O2 via nasal cannula \\T\\ 3L/min. Order Results: Lab Order: B-Type Natiuretic Peptide; SPEC'M 06/24/16 17:17 Test: BRAIN NATRIURETIC PEPTIDE; Value: 393; Range: <100; Abnormal: Above high normal; Units: PG/ML; Status: F Lab Order: Basic Metabolic Profile; SPEC'M 06/24/16 17:17 Test: GLUCOSE, FASTING; Value: 124; Range: 83-110; Abnormal: Above high normal; Units: MG/DL; Status: F Test: BLOOD UREA NITROGEN; Value: 19; Range: 7-18; Abnormal: Above high normal; Units: MG/DL; Status: F Test: CREATININE FOR GFR; Value: 1.18; Range: 0.55-1.02; Abnormal: Above high normal; Units: MG/DL; Status: F Test: GLOMERULAR FILTRATION RATE; Value: 48.2; Range: >39; Status: F Test: SODIUM LEVEL; Value: 136; Range: 136-145; Units: MEQ/L; Status: F Test: POTASSIUM SERUM; Value: 5.0; Range: 3.5-5.1; Units: MEQ/L; Status: F Test: CHLORIDE LEVEL; Value: 101; Range: 98-107; Units: MEQ/L; Status: F Test: CARBON DIOXIDE LEVEL; Value: 28; Range: 21-32; Units: MEQ/L; Status: F Test: ANION GAP; Value: 7; Range: 8-16; Abnormal: Below low normal; Units: MEQ/L; Status: F Test: CALCIUM LEVEL; Value: 8.7; Range: 8.8-10.2; Abnormal: Below low normal; Units: MG/DL; Status: F Test Note: ; Units are mL/min/1.73 m2 Chronic Kidney Disease Staging per NKF: Stage I & II GFR >=60 Normal to Mildly Decreased Stage III GFR 30-59 Moderately Decreased Stage IV GFR 15-29 Severely Decreased Stage V GFR <15 Very Little GFR Left ESRD GFR <15 on SCREENING TECHNICIAN Lab Order: CBC with Diff; SPEC'M 06/24/16 17:17 Test: WHITE BLOOD COUNT; Value: 7.3; Range: 4.0-10.0; Units: K/mm3; Status: F Test: RED BLOOD COUNT; Value: 3.41; Range: 4.00-5.40; Abnormal: Below low normal; Units: M/mm3; Status: F Test: HEMOGLOBIN; Value: 9.9; Range: 12.0-16.0; Abnormal: Below low normal; Units: g/dl; Status: F Test: HEMATOCRIT; Value: 31.0; Range: 36.0-47.0; Abnormal: Below low normal; Units: %; Status: F Test: MEAN CORPUSCULAR VOLUME; Value: 91.1; Range: 80.0-96.0; Units: fl; Status: F Test: MEAN CORPUSCULAR HEMOGLOBIN; Value: 29.1; Range: 27.0-33.0; Units: pg; Status: F Test: MEAN CORPUSCULAR HGB CONC; Value: 31.9; Range: 32.0-36.5; Abnormal: Below low normal; Units: g/dl; Status: F Test: RED CELL DISTRIBUTION WIDTH; Value: 15.0; Range: 11.5-14.5; Abnormal: Above high normal; Units: %; Status: F Test: PLATELET COUNT, AUTOMATED; Value: 304; Range: 150-450; Units: k/mm3; Status: F Test: NEUTROPHILS %; Value: 76.7; Range: 36.0-66.0; Abnormal: Above high normal; Units: %; Status: F Test: LYMPH %; Value: 10.7; Range: 24.0-44.0; Abnormal: Below low normal; Units: %; Status: F Test: MONO %; Value: 8.6; Range: 0.0-5.0; Abnormal: Above high normal; Units: %; Status: F Test: EOS %; Value: 1.1; Range: 0.0-3.0; Units: %; Status: F Test: BASO %; Value: 0.2; Range: 0.0-1.0; Units: %; Status: F Test: LARGE UNSTAINED CELL %; Value: 2.7; Range: 0.0-4.0; Units: %; Status: F Test: NEUTROPHILS #; Value: 5.6; Range: 1.8-7.7; Units: K/mm3; Status: F Test: LYMPH #; Value: 1.0; Range: 1.5-4.5; Abnormal: Below low normal; Units: K/mm3; Status: F Test: MONO #; Value: 0.6; Range: 0.0-0.8; Units: K/mm3; Status: F Test: EOS #; Value: 0.1; Range: 0.0-0.50; Units: K/mm3; Status: F Test: BASO #; Value: 0.0; Range: 0.0-0.2; Units: K/mm3; Status: F Test: LARGE UNSTAINED CELL #; Value: 0.2; Range: 0.0-0.4; Units: K/mm3; Status: F Lab Order: Cardiac Injury Profile; SPEC'M 06/24/16 17:17 Test: CPK CREATINE PHOSPHOKINASE; Value: 44; Range: 26-192; Units: U/L; Status: F Test: CK-MB VALUE MASS; Value: 2.3; Range: 0.0-3.6; Units: NG/ML; Status: F Test: MB/CK RELATIVE INDEX; Value: 5.22; Range: < OR =4; Abnormal: Above high normal; Status: F Test Note: ; DIAGNOSIS CRITERIA MMB ng/ml Relative Index (RI) NON-AMI < or = 5 N/A WOOD ZONE > 5 < or = 4 AMI > 5 > 4 Lab Order: Troponin; SPEC'M 06/24/16 17:17 Test: TROPONIN I; Value: < 0.02; Range: < 0.10; Units: NG/ML; Status: F Test Note: ; Troponin I Reference Interval for Siemens Zeer LOCI: 99th Percentile= 0.00-0.045 ng/ml Risk Stratification: <= 0.10 ng/ml Decreased Risk for Adverse Clinical Events. 0.10-1.50 ng/ml Increased Risk for Adverse Clinical Events. Evaluation of additional criterion and/or repeat testing in 2-6 hours is suggested to rule out myocardial damage. >= 1.50 ng/ml Indicative of Myocardial Injury. Lab Order: -Influenza A&B Rapid Antigen - Nose; SPEC'M 06/24/16 17:17 Test: INFLUENZA A RAPID SCR by ICA; Value: INFLUENZA A RESULTS NEGATIVE; Status: F Test: INFLUENZA A RAPID SCR by ICA; Value: Comments:; Status: F Test: INFLUENZA B RAPID SCR by ICA; Value: INFLUENZA B RESULTS NEGATIVE; Status: F Test Note: ; The Influenza test is a direct rapid immunoassay for the qualitative detection of Influenza viral antigen. Cell culture (Viral Culture) testing should be considered to confirm NEGATIVE results and to assist in detecting other viruses that can provide similar clinical symptoms. Please contact the lab within 24 hours [phone] if confirmatory testing is desired. Lab Order: BASIC METABOLIC PROFILE; SPEC'M 06/25/16 06:03 Test: GLUCOSE, FASTING; Value: 166; Range: 83-110; Abnormal: Above high normal; Units: MG/DL; Status: F Test: BLOOD UREA NITROGEN; Value: 16; Range: 7-18; Units: MG/DL; Status: F Test: CREATININE FOR GFR; Value: 1.16; Range: 0.55-1.02; Abnormal: Above high normal; Units: MG/DL; Status: F Test: GLOMERULAR FILTRATION RATE; Value: 49.2; Range: >39; Status: F Test: SODIUM LEVEL; Value: 136; Range: 136-145; Units: MEQ/L; Status: F Test: POTASSIUM SERUM; Value: 4.9; Range: 3.5-5.1; Units: MEQ/L; Status: F Test: CHLORIDE LEVEL; Value: 99; Range: 98-107; Units: MEQ/L; Status: F Test: CARBON DIOXIDE LEVEL; Value: 29; Range: 21-32; Units: MEQ/L; Status: F Test: ANION GAP; Value: 8; Range: 8-16; Units: MEQ/L; Status: F Test: CALCIUM LEVEL; Value: 8.3; Range: 8.8-10.2; Abnormal: Below low normal; Units: MG/DL; Status: F Test Note: ; Units are mL/min/1.73 m2 Chronic Kidney Disease Staging per NKF: Stage I & II GFR >=60 Normal to Mildly Decreased Stage III GFR 30-59 Moderately Decreased Stage IV GFR 15-29 Severely Decreased Stage V GFR <15 Very Little GFR Left ESRD GFR <15 on SCREENING TECHNICIAN Lab Order: ARTERIAL BLOOD GAS; [facility] 06/25/16 00:18 Test: ABG pH (ARTERIAL); Value: 7.433; Range: 7.350-7.450; Units: UNITS; Status: F Test: ABG PARTIAL PRESSURE CO2; Value: 36.2; Range: 35.0-45.0; Units: mmHg; Status: F Test: ABG PARTIAL PRESSURE O2; Value: 71.2; Range: 75.0-100.0; Abnormal: Below low normal; Units: mmHg; Status: F Test: ABG TOTAL CO2; Value: 24.8; Range: 23.0-31.0; Units: MEQ/L; Status: F Test: ABG HCO3; Value: 23.7; Range: 22.0-26.0; Units: MEQ/L; Status: F Test: ABG BASE EXCESS; Value: -0.3; Range: -2.0-2.0; Status: F Test: ABG STANDARD HCO3; Value: 24.2; Range: 22.0-26.0; Units: MEQ/L; Status: F Test: ABG O2 SATURATION; Value: 94.2; Range: 95.0-99.0; Abnormal: Below low normal; Units: %; Status: F Lab Order: CBC WITH DIFFERENTIAL; SPEC'M 06/25/16 06:03 Test: WHITE BLOOD COUNT; Value: 6.0; Range: 4.0-10.0; Units: K/mm3; Status: F Test: RED BLOOD COUNT; Value: 3.20; Range: 4.00-5.40; Abnormal: Below low normal; Units: M/mm3; Status: F Test: HEMOGLOBIN; Value: 9.3; Range: 12.0-16.0; Abnormal: Below low normal; Units: g/dl; Status: F Test: HEMATOCRIT; Value: 29.1; Range: 36.0-47.0; Abnormal: Below low normal; Units: %; Status: F Test: MEAN CORPUSCULAR VOLUME; Value: 90.8; Range: 80.0-96.0; Units: fl; Status: F Test: MEAN CORPUSCULAR HEMOGLOBIN; Value: 28.9; Range: 27.0-33.0; Units: pg; Status: F Test: MEAN CORPUSCULAR HGB CONC; Value: 31.9; Range: 32.0-36.5; Abnormal: Below low normal; Units: g/dl; Status: F Test: RED CELL DISTRIBUTION WIDTH; Value: 15.1; Range: 11.5-14.5; Abnormal: Above high normal; Units: %; Status: F Test: PLATELET COUNT, AUTOMATED; Value: 288; Range: 150-450; Units: k/mm3; Status: F Test: NEUTROPHILS %; Value: 75.4; Range: 36.0-66.0; Abnormal: Above high normal; Units: %; Status: F Test: LYMPH %; Value: 11.0; Range: 24.0-44.0; Abnormal: Below low normal; Units: %; Status: F Test: MONO %; Value: 9.7; Range: 0.0-5.0; Abnormal: Above high normal; Units: %; Status: F Test: EOS %; Value: 1.3; Range: 0.0-3.0; Units: %; Status: F Test: BASO %; Value: 0.1; Range: 0.0-1.0; Units: %; Status: F Test: LARGE UNSTAINED CELL %; Value: 2.6; Range: 0.0-4.0; Units: %; Status: F Test: NEUTROPHILS #; Value: 4.6; Range: 1.8-7.7; Units: K/mm3; Status: F Test: LYMPH #; Value: 0.8; Range: 1.5-4.5; Abnormal: Below low normal; Units: K/mm3; Status: F Test: MONO #; Value: 0.6; Range: 0.0-0.8; Units: K/mm3; Status: F Test: EOS #; Value: 0.1; Range: 0.0-0.50; Units: K/mm3; Status: F Test: BASO #; Value: 0.0; Range: 0.0-0.2; Units: K/mm3; Status: F Test: LARGE UNSTAINED CELL #; Value: 0.2; Range: 0.0-0.4; Units: K/mm3; Status: F Lab Order: RESPIRATORY PANEL; SPEC'M 06/25/16 12:33 Test: RESPIRATORY PANEL; Value: RP PANEL RESULT NEGATIVE by PCR; Status: F Test: RESPIRATORY PANEL; Value: Comments:; Status: F Test Note: ; This respiratory PCR panel detects Influenza A H1, H3 and 2009 H1 viruses, Influenza B virus, Respiratory syncytial virus, Human metapneumovirus, Parainfluenza virus 1, 2, 3 and 4, Adenovirus, Rhinovirus/Enterovirus, Coronavirus HKU1, NL63, OC43 and 229E, Bordetella pertussis, Mycoplasma pneumoniae and Chlamydia pneumoniae. Lab Order: Fingerstick Blood Sugar; SPEC'M 06/25/16 12:07 Test: BEDSIDE GLUCOSE; Value: 197; Range: 83-110; Abnormal: Above high normal; Units: MG/DL; Status: F Lab Order: SPUTUM CULTURE AND GRAM STAIN; SPEC'M 06/25/16 12:33 Test: GRAM STAIN; Value: GRAM STAIN RESULT; Status: F Test: GRAM STAIN; Value: QUALITY: GOOD; Status: F Test: GRAM STAIN; Value: FEW WBCS; Status: F Test: GRAM STAIN; Value: FEW EPITHELIAL CELLS; Status: F Test: GRAM STAIN; Value: NO ORGANISMS SEEN; Status: F Lab Order: FERRITIN; SPEC'M 06/24/16 17:17 Test: FERRITIN; Value: 455; Range: 8-252; Abnormal: Above high normal; Units: NG/ML; Status: F Lab Order: TOTAL IRON BINDING CAPACIT; SPEC'M 06/24/16 17:17 Test: IRON (FE); Value: 22; Range: 50-170; Abnormal: Below low normal; Units: UG/DL; Status: F Test: TOTAL IRON BINDING CAPACITY; Value: 142; Range: 250-450; Abnormal: Below low normal; Units: UG/DL; Status: F Test: PERCENT SATURATION; Value: 15.5; Range: 13.2-37.4; Units: %; Status: F Lab Order: RETICULOCYTE COUNT; SPEC'M 06/25/16 06:03 Test: RETICULOCYTE % [id number]; Value: 2.80; Range: 0.5-1.5; Abnormal: Above high normal; Units: %; Status: F Test: RETICULOCYTE ABSOLUTE [id number]; Value: 95; Range: 17-77; Abnormal: Above high normal; Units: x10(9)/L; Status: F Test: RETIC HEMOGLOBIN CONTENT CHr; Value: 25.6; Range: 24-36; Units: PG; Status: F Radiology Order: Chest, 1 View Test: Chest, 1 View REASON FOR EXAMINATION: Shortness of Breath; CHEST, ONE VIEW:; ; HISTORY: Shortness of breath.; ; COMPARISON: 06/18/2016.; ; There is loss of volume of the right hemithorax. There is elevation of the right; hemidiaphragm. Bilateral infiltrates are present in the lungs, slightly increased; in the left upper lobe. The heart is normal in size. The pulmonary vasculature is; obscured by the density in the lungs.; ; IMPRESSION:; ; Diffuse bilateral infiltrates, increased in the left upper lobe compared to the; previous study.; ; ; Signed by; Bassam Cook MD 06/25/2016 08:33 A; Radiology Order: EKG-ADULT Test: EKG-ADULT REASON FOR EXAMINATION: Shortness of Breath; Stationary ECG Study; [facility] - ED; ; Test Date: 2016-06-24; Pat Name: PINEDA VALDERRAMA Department:; Room: -; Gender: F [employer]: DAMIAN; : 1945 Requested By: Thea Pradhan; Order Number: [id number] Reading MD: Thea Pradhan; Measurements; Intervals [place]; Rate: 84 P: 27; W[place]: 157 QRS: 46; QRSD: 76 T: 34; QT: 318; QTc: 376; Interpretive Statements; SINUS RHYTHM; LOW QRS VOLTAGE IN PRECORDIAL LEADS; NONSPECIFIC ST T-WAVE ABNORMALITY; PRIOR ATRIAL FIBRILLATION 06/07/16; ; Electronically Signed On 06-24-2016 20:26:57 EST by Thea Pradhan; Radiology Order: CT ANGIO CHEST Test: CT ANGIO CHEST REASON FOR EXAMINATION: SOB, COUGH; ; CT angiogram of the chest; Clinical statement: Chest pain and shortness of breath.; Technique: Multiple axial CT images were obtained from the thoracic inlet through the upper abdomen a; fter a bolus administration of nonionic intravenous contrast. Coronal and sagittal reconstructions we; re also obtained.; Comparison: 06/13/2016.; Findings: The pulmonary arteries are well-opacified with contrast, with no intraluminal filling defec; ts to suggest embolism. The thoracic aorta is unremarkable. Thyroid gland is within normal limits. Th; ere is no thoracic lymphadenopathy. There are extensive parenchymal changes as well as interstitial s; carring throughout the lungs bilaterally. However, there is increased consolidation with air bronchog; cain in the right lower lobe, suspicious for acute pneumonia. The consolidation in the right lung ape; x is grossly increased, as the cavitary lesions have slightly decreased in size since the prior study; . Limited imaging of the upper abdomen is unremarkable. There are no suspicious osseous lesions.; Impression:; 1. No evidence of pulmonary embolism.; 2. Extensive pulmonary fibrosis and chronic scarring throughout the lungs as described.; 3. New increased consolidation in the right lower lobe suspicious for acute pneumonia.; 4. Increased consolidation of the right lung apex could represent pneumonia or fluid filling the prev; iously demonstrated cavitary lesions.; 5. The other CT findings are grossly stable.; ; Radiology Order: Chest, 2 view PA, Lat Test: Chest, 2 view PA, Lat REASON FOR EXAMINATION: SOB; AP SITTING VIEW OF THE CHEST:; ; ; On the present study, there are two views. The heart and great vessels are; unremarkable. In the right upper lung is an area of triangular type density.; ; The lung markings at the bases are very prominent. On the lateral plane, there; is a somewhat homogeneous density probably in the left lower lobe.; ; There are skeletal changes which are age related. Remaining examination is; unremarkable.; ; IMPRESSION:; The findings are consistent with inflammatory process or pneumonia. However,; this patient should have a CT study for further assessment.; ; Edited [id number]; MTDD Radiology Order: Chest, 2 view PA, Lat Test: Chest, 2 view PA, Lat REASON FOR EXAMINATION: pneumonia; Clinical: Shortness of breath.; ; Technique: PA and lateral.; ; Comparison: 06/24/2016.; ; Findings:; Diffuse bilateral infiltrates are again appreciated and essentially unchanged.; Pleural effusion cannot be excluded. No pneumothorax. Skeletal structures; intact. No evidence for cardiomegaly.; ; Impression:; Multifocal infiltrates unchanged from prior examination.; ; ; Signed by; Ki Garcia MD 06/25/2016 10:48 A; Outcome: 06/24 20:39 Decision to Hospitalize by Provider. br1 06/25 15:59 Discharge Assessment: Patient awake, alert and oriented x 3. No cognitive and/or aa3 functional deficits noted. Patient verbalized understanding of disposition instructions. patient administered narcotics - no. The following High Risk Discharge criteria are identified: None. Admitted to PCU accompanied by nurse, accompanied by tech, via stretcher, with oxygen, on monitor, with chart. Condition: good. CT Study completed. Admission hand-off: Report called to Keven Trimble RN. Property :Personal belongings accompany Pt. 16:50 Patient left the ED. mcp Signatures: Dispatcher [employer] EDMS Avelino Shane,RN RN robink Eriac Lind, RN RN Stan Newman Zoeann zo Roggie, Brian, MD MD br1 Anaya Shankar mt4 Kavon Wilde bb3 Ana Mariee, RN RN hs1 Yari Charles, RN RN sls1 Marin Aranda jml1 Annamarie Musa,RN RN aa3 Roberto Donnelly,RN RN mb9 Nicki Lambert,RN RN af2 Noemi Grossman,RN RN nn1 Ren Jaeger,RT RT cs15 Carl, Silvio, CREW LEAD CREW LEAD jmv Dominga Holley,RN RN mv5 Corrections: (The following items were deleted from the chart) 05:33 02:13 Pulse 86bpm; Monitor; Pulse Ox 92%; mv5 mv5 05:33 04:17 Pulse 86bpm; Monitor; Pulse Ox 94%; mv5 mv5 05:33 03:46 Pulse 86bpm; Monitor; Pulse Ox 93%; mv5 mv5 05:33 03:16 Pulse 86bpm; Monitor; Pulse Ox 94%; mv5 mv5 MTDD
--- NOTE | 2016-06-25 17:17 | IPN ---
DATE: 06/25/2016 I received a call yesterday from Dr. Johnston indicating that Mrs. Caal had came back to the emergency room complaining of shortness of breath. Upon seeing her today, she complains of increasing shortness of breath over the last few days since discharge. She has also been coughing up cream colored sputum. Her pain is well controlled. There is no dysphagia. She is eating well. She has had no fever, chills or sweats. Her vital signs show a T-max of 97.7 with a heart rate that ranges between 92 and 97 in a sinus rhythm, respiratory rate of 20 with the use of accessory muscles and she is 93% saturated on 3 liters nasal cannula. Blood pressure is 146/70. Her intake and output are not recorded. On physical examination, she has coarse crackles in the right lower hemithorax along with some fine crackles during late inspiration. I do not hear any wheezing. Percussion note is full to the diaphragm as far as I can tell through her morbid obesity. Cardiac exam is without murmurs, clicks, gallops or rubs. I cannot feel her point of maximal impulse (PMI). S1 and S2 are normal. Abdomen is soft and nontender. Bowel sounds are positive. There is no hepatomegaly. No costovertebral angle (CVA) tenderness that I appreciate through her morbid obesity. Extremities show no pretibial edema. No calf tenderness. No differential swelling of the upper extremities. She does have increased subcutaneous tissue pretibially. Skin is warm, dry and perfused without cyanosis or mottling including that of the nail beds and the knees. Neck is supple. There is no jugular venous distention. No subcutaneous emphysema. Trachea is midline. Mouth shows her mucous membranes to be pink and moist. Lips and commissures are without lesions. There is no thrush. Eyes show her pupils to be equal, reactive. Extraocular muscles intact. Sclera anicteric. Neuro shows II through XII intact. Gross motor and gross sensation intact. Gait is not tested. Psychiatric shows her to be awake, alert and oriented times three with appropriate mood, affect and conversational. Her white count on admission was 7.3 yesterday, it is now 6.0 today. Hemoglobin and hematocrit are 9.3 and 29.1 with a platelet count of 288. Differential shows 75% neutrophils, 11% lymphocytes, 9% monocytes. There are no immature forms, no toxic granulations. Her electrolytes are normal with a BUN and creatine of 16 and 1.16 with a calcium of 8.3 and a glucose of 166. Her BNP is 393, well above the reference range of 100. Blood gases last night showed a pH of 7.43, pc02 of 36 and a pO2 of 71 with a base excess of -.3. A sputum culture has not yet been obtained. Not unless she has been started on antibiotics, which consists of levofloxacin 500 mg every 24 hours. She is on chest expansion therapy. Her chest x-ray done eventually PA and lateral last night in the emergency room still shows the diffuse haze and infiltrative pattern on the right side, particularly in the right lower lobe. When compared to her discharge x-ray it is essentially unchanged, however, with more volume loss on the right side. Looks to be an infiltrative pattern also in the remaining middle lobe. Lateral chest x-ray shows infiltrative patterns posteriorly and inferiorly. Chest CT done yesterday under CT angiogram protocol did not show a pulmonary embolism. It does show again, the same pattern she had a few days postoperatively, but with denser consolidation of the medial segment of the medial posterior segment of the lower lobe on the right side. She also had patchy infiltrates throughout the lower lobe on the left side. There is a small space at the cupula which has both fluid and air within it. There are air bronchograms throughout the right lower lobe consolidation. IMPRESSION: 1. Possible right lower lobe pneumonia although I doubt it. 2. Chronic obstructive pulmonary disease (COPD) exacerbation. 3. Morbid obesity. 4. 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 5. Stage IA adenocarcinoma right upper lobe. 6. Diabetes. 7. Hypertension. 8. COPD. 9. Depression. 10. Hyperlipidemia. 11. Renal insufficiency. 12. Anemia. 13. Congestive heart failure (CHF). 14. Gout. PLAN AND DISCUSSION: As noted above, I have my doubts that this is a pneumonia. Her white count is normal. She have a consolidation, however, in the right lower lobe which she has had all along and I suspect that is secondary to her restrictive lung disease secondary to her morbid obesity and lack of expansion. She is already on antibiotics which we are compelled to use given the picture of her x-rays and her CT scan. We will await sputum cultures. She did grow out staphylococcus aureus during her admission last time. That staphylococcus aureus was sensitive to vancomycin and Bactrim. She had been discharged on Bactrim for the staphylococcus aureus. If this is recurrence of her staphylococcus, the levofloxacin is probably not going to cover it.
[2016-06-25] MEDS: FUROSEMIDE 100 MG/10 ML VIAL (J1940) IV SCH (17:23)
[2016-06-25] MEDS: MEROPENEM INJ 1 GM in D5W MINI-BAG PLUS 100 ML IV SCH (17:23)
[2016-06-25] MEDS ORDERED: VANCOMYCIN HCL 750 MG, VIAL MATE ADAPTER 1 EACH in D5W 250 ML IV SCH (18:00)
--- NOTE | 2016-06-25 18:33 | IPN ---
DATE: 06/25/2016 SUBJECTIVE: Today the patient tells me that she is breathing easier than she did yesterday. She denies current chest pain. She tells me that she does have some shortness of breath. Denies nausea, vomiting, fevers or chills. She tells me that her shortness of breath have progressively worsened since her lobectomy approximately one week ago. OBJECTIVE: VITAL SIGNS: Temperature 97.7, pulse 92, respiratory rate 20, blood pressure 146/70, Oxygen sat 93% on 2 liters nasal cannula. GENERAL: She is a morbidly obese elderly female sitting up in her stretcher. She does not appear to be in any acute distress. HEENT: Pupils equal, round, reactive to light. She has moist mucous membranes. No elevation of CVP. CARDIOVASCULAR EXAM: S1, S2, regular. RESPIRATORY EXAM: Diminished breath sounds at the bases. Prolonged expiratory phase. Reduced breath sounds on the right. Well healed surgical scar on the right. She speaks in complete sentences. There is mild accessory muscle use. CARDIOVASCULAR EXAM: S1, S2 regular. ABDOMINAL EXAM: Obese. No clubbing, cyanosis. There is trace edema bilaterally. LABORATORY STUDIES: Today WBC 6.0, hemoglobin 9.3, hematocrit 29.1, platelet count 288. CHEMISTRY PANEL: Sodium 136, potassium 4.9, chloride 99, bicarb 29, BUN 16, creatinine 1.1, BNP is elevated at 393. Arterial blood gas reveals a PO2 of 71.2, PCo2 of 36.2, and pH of 7.43. MICROBIOLOGY: Respiratory PCR panel is negative. Blood cultures are pending. Sputum cultures are pending. IMAGING: The patient did have a CT angiography of the chest which reveals no evidence of pulmonary embolism (PE) but extensive pulmonary fibrosis and chronic scarring throughout the lungs as described. New increased consolidation in the right lower lobe suspicious for acute pneumonia. Increased consolidation of the right apex could represent pneumonia or fluid filling with previous demonstrated cavity lesions. ASSESSMENT AND PLAN: This is a 70-year-old female with dyspnea and hypoxia. PROBLEM: 1. Hypoxia and dyspnea. Patient has a history of lung cancer status post lobectomy one week ago. There is some concern that this may be the patient's new baseline status post lobectomy. I did speak with Dr. Alexander who told me that she had shortness of breath long before her lobectomy as well. However we will do everything we can to optimize her respiratory status. We are treating her for decompensated chronic obstructive pulmonary disease at this time with IV Solu-Medrol and nebulizer treatments and dyspnea based on CT scan findings. We are treating her for pneumonia given that she was recently in the hospital and recently underwent surgery I ill add broad spectrum to include health care associated pneumonia. Switch her from levofloxacin and vancomycin to meropenem. In addition the patient does also have trace peripheral edema. She may be having some pulmonary edema as well. She had received Lasix times one in the emergency room and did have some subjective improvement. I will continue diuresing with Lasix 40 IV twice a day. I did meet with all the patient's family members. There was one member present on phone, daughter, granddaughter, multiple [id number] and children. They did wish the patient to leave the hospital against medical advice and go to [facility] for a second opinion. However at this time they are willing to stay and be treated for 48 hours to see if she improves. If she does improve this will be optimal. However if they don't they have informed me that they will likely leave against medical advice in 48 hours understanding the risks of interrupting her treatment or incomplete treatment up to and including . I did have a length discussion with them, the ER nurse Catherine was present for the discussion. At this time the patient is willing to stay. 2. Vitamin D deficiency. She continues with supplementation. 3. Type 2 diabetes. Patient on sliding scale insulin. 4. Atrial fibrillation. Patient is on Digoxin. 5. Anemia. Unclear etiology. The patient is on ferrous sulfate. We will check iron studies to confirm this is iron deficiency anemia. 6. Mood disorder. Continue with Cymbalta. The patient is on Effexor. 7. Gastroesophageal reflux disease. Continue with Pepcid. 8. Hypertension. Continue with lisinopril. 9. Hyperkalemia. Continue with potassium supplementation. 10. Hyperthyroidism. Continue with Synthroid. 11. Anxiety. Continue with lorazepam. 12. Insomnia. Continue with trazodone. 13. Gout. Continue with allopurinol. 14. Dyslipidemia. Continue with Lipitor. DISPOSITION: The patient was admitted to the progressive care unit (PCU) and we will continue to monitor closely.
[2016-06-25] MEDS ORDERED: VANCOMYCIN HCL 500 MG in D5W MINI-BAG PLUS 100 ML IV ONE (19:00)
[2016-06-25 20:00] VITALS: BP 148/85
[2016-06-25] MEDS: PERCOCET 5MG/325MG TAB PO PRN (20:01)
[2016-06-25] MEDS ORDERED: LevoFLOXacin IV 500 MG in APPROPRIATE DILUENT 1 EA IV SCH (21:00)
[2016-06-25] MEDS: traZODone 50 MG TAB PO SCH (21:43)
[2016-06-25] MEDS: ALLOPURINOL 100 MG TAB PO SCH (21:44)
[2016-06-25] MEDS: ATORVASTATIN 20 MG TAB PO SCH (21:44)
[2016-06-25] MEDS: VANCOMYCIN HCL 750 MG, VIAL MATE ADAPTER 1 EACH in D5W 250 ML IV SCH (23:20)
[2016-06-26] VITALS: BP 142/65
[2016-06-26] MEDS: IPRATROPIUM 0.5MG/ALBUTEROL 2.5MG INH SOL UD 3ML (DUONEB)(J7620) NEB SCH ×3 (00:37→15:04)
[2016-06-26] MEDS: MEROPENEM INJ 1 GM in D5W MINI-BAG PLUS 100 ML IV SCH ×3 (00:47→17:35)
[2016-06-26] MEDS: traMADol 50 MG TAB PO PRN ×3 (00:48→21:01)
[2016-06-26] MEDS: PERCOCET 5MG/325MG TAB PO PRN ×3 (03:29→15:37)
[2016-06-26 04:00] VITALS: BP 162/71
[2016-06-26 05:52] LABS: BASO % 0.1 % (0.0-1.0); EOS % 0.1 % (0.0-3.0); LARGE UNSTAINED CELL # 0.1 K/mm3 (0.0-0.4); LARGE UNSTAINED CELL % 1.5 % (0.0-4.0); LYMPH # 0.4 K/mm3 (1.5-4.5); LYMPH % 11.8 % (24.0-44.0); MEAN CORPUSCULAR HEMOGLOBIN 28.7 pg (27.0-33.0); MEAN CORPUSCULAR HGB CONC 31.8 g/dl (32.0-36.5); MEAN CORPUSCULAR VOLUME 90.5 fl (80.0-96.0); MONO # 0.2 K/mm3 (0.0-0.8); MONO % 6.6 % (0.0-5.0); NEUTROPHILS # 2.7 K/mm3 (1.8-7.7); NEUTROPHILS % 79.9 % (36.0-66.0); PLATELET COUNT, AUTOMATED 318 k/mm3 (150-450); RED CELL DISTRIBUTION WIDTH 15.2 % (11.5-14.5); WHITE BLOOD COUNT 3.4 K/mm3 (4.0-10.0)
[2016-06-26] MEDS: LEVOTHYROXINE 0.05 MG TAB (50 MCG) PO SCH (05:54)
[2016-06-26 06:08] LABS: CALCIUM LEVEL 8.2 MG/DL (8.8-10.2); CREATININE FOR GFR 1.17 MG/DL (0.55-1.02); GLOMERULAR FILTRATION RATE 48.7 (>39)
[2016-06-26] MEDS: TIOTROPIUM INHALER/CAPSULE (SPIRIVA) INH SCH (07:27)
[2016-06-26] MEDS: ADVAIR DISKUS 500/50 INH PWD INH SCH ×2 (07:27→21:18)
[2016-06-26 08:00] VITALS: BP 126/60
--- NOTE | 2016-06-26 08:38 | REP ---
TWO VIEWS OF THE CHEST: This study is compared to that of 06/25/2016. The area of consolidation in the right lower lobe shows some decrease. The interstitial densities in the left lower lobe have undergone some resolution. The cardiomediastinal structures, lungs and diaphragms are unremarkable. There are age related skeletal changes of the osseous structures. IMPRESSION: Large right lower lobe consolidation. Associated pleural effusion cannot be completely excluded. If clinically indicated, this patient should have CT study for further assessment. Unreviewed
[2016-06-26] MEDS: HumaLOG INSULIN (NovoLOG) PER UNIT SC SCH ×4 (09:13→21:01)
[2016-06-26] MEDS: FERROUS SULFATE 325MG TAB PO SCH (09:15)
[2016-06-26] MEDS: DIGOXIN 0.25 MG TAB PO SCH (09:15)
[2016-06-26] MEDS: PANTOPRAZOLE 40MG TAB (PROTONIX) PO SCH (09:15)
[2016-06-26] MEDS: LORazepam 0.5 MG TAB PO SCH ×2 (09:15→21:03)
[2016-06-26] MEDS: ASPIRIN 81 MG ENTERIC TAB PO SCH (09:15)
[2016-06-26] MEDS: MAGNESIUM OXIDE 400 MG TAB (MAG-OX) PO SCH ×3 (09:16→21:02)
[2016-06-26] MEDS: LISINOPRIL 10 MG TAB PO SCH (09:16)
[2016-06-26] MEDS: POTASSIUM CHLORIDE 10 MEQ SR TABLET PO SCH ×2 (09:16→21:03)
[2016-06-26] MEDS: DULoxetine 30 MG CAP (CYMBALTA) PO SCH (09:16)
[2016-06-26] MEDS: VENLAFAXINE 37.5 MG TAB PO SCH ×2 (09:16→21:03)
[2016-06-26] MEDS: CALCIUM/VITAMIN D 500 MG TAB PO SCH (09:16)
[2016-06-26] MEDS: FUROSEMIDE 100 MG/10 ML VIAL (J1940) IV SCH ×2 (09:17→17:36)
[2016-06-26] MEDS: FAMOTIDINE 20 MG TAB PO SCH (09:17)
[2016-06-26] MEDS: VANCOMYCIN HCL 750 MG, VIAL MATE ADAPTER 1 EACH in D5W 250 ML IV SCH ×2 (09:17→21:03)
[2016-06-26 11:35] VITALS: BP 122/59
--- NOTE | 2016-06-26 11:59 | IPN ---
DATE OF EXAM: 06/26/2016 SUBJECTIVE: Today the patient tells me that she feels as thought she is breathing better. She tells me that she is breathing more easily at rest. She is comfortable. She denies chest pain. She tells me that her right sided chest pain has resolved. She denies nausea, vomiting, fevers or chills. OBJECTIVE: VITAL SIGNS: Temperature 96.7, pulse 81, respiratory rate 20, blood pressure 126/60, oxygen saturation 94% on 2 liters nasal cannula. GENERAL: She is a morbidly obese elderly female sitting in a recliner. She does not appear to be in any acute distress. HEENT: Pupils equally round and reactive to light. She has moist mucous membranes. No elevation in central venous pressure (CVP) appreciated at this time. CARDIOVASCULAR EXAM: S1 and S2 regular. She is not tachycardic. RESPIRATORY EXAM: She has diminished breath sounds at the bases, actually quite good air movement today and no appreciable wheeze. Well healed surgical scar on the right side. ABDOMINAL EXAM: Obese. Bowel sounds are present. The abdomen is soft. EXTREMITIES: No clubbing, cyanosis or appreciable edema. LABORATORY STUDIES: Today, WBC 3.4, hemoglobin 9.1 down trending, hematocrit 28.8, platelet count 318. She has an elevated reticulocyte count. Chemistry panel: Sodium 133, potassium 5.0, chloride 95, bicarb 30, BUN 18, creatinine 1.1, BNP down trending 167 today, down from 393 yesterday. She has a low iron, low TIBC and a slightly elevated ferritin at 455. Microbiology is all thus far negative. Blood cultures are negative. Respiratory panel is negative. Sputum culture is pending. IMAGING: The patient had a chest x-ray today that reveals persistent right lower lobe infiltrate with questionable effusion. ASSESSMENT/PLAN: This is a 70-year-old female with dyspnea and hypoxia. PROBLEM: 1. Dyspnea and hypoxia. The patient has a history of chronic obstructive pulmonary disease (COPD) and is status post lobectomy approximately a week ago. I would not be surprised if the patient has a new oxygen requirement of 2 liters. At the present time, she does need it at rest and does desaturate with activity. At the present time, we are trying to optimize her respiratory status by treating her for decompensated COPD with IV Solu-Medrol. She is also being treated for healthcare associated pneumonia with vancomycin and meropenem. In addition to this, she is also being diuresed with Lasix for a component of diastolic congestive heart failure. An echocardiogram has been ordered. At this time, the patient subjectively feels better. Will continue to monitor for an additional 24 hours. The patient's family did request to leave the hospital against medical advice yesterday. I did suggest staying for 48 hours to give a trial of therapies. We will reevaluate her tomorrow morning. If she is not improved or improving at that time, it is likely they will sign her out against medical advice and take her directly to [facility] for a second opinion. I did have extensive discussions with them regarding the risks of this and potential lack of benefits and they understand this. I did discuss it once again with the patient today. acute on chronic diastolic (congestive) heart failure treated with IV Lasix 2. Vitamin D deficiency. She is on supplementation. 3. Type 2 diabetes. She on sliding scale insulin. 4. Atrial fibrillation. She is on digoxin but no anticoagulation. 5. Anemia. Appears to be iron deficiency anemia. I will check an occult stool for blood. She is current on ferrous sulfate. 6. Mood disorder. The patient is on Cymbalta and Effexor. 7. Gastroesophageal reflux disease. The patient is on Pepcid. 8. Hypertension. The patient is on lisinopril. 9. Hypokalemia. Resolved. She is on supplementation. 10. Hypothyroidism. The patient is on Synthroid. 11. Anxiety. She is on lorazepam. 12. Insomnia. She is on trazodone. 13. Gout. She is on allopurinol. 14. Dyslipidemia. The patient is on Lipitor. DISPOSITION: Will continue to monitor the patient for an additional 24 hours. She is working with physical therapy, who at this time are recommending she is not safe, but will continue to see how she progresses with time. ROMERO
[2016-06-26] MEDS: methylPREDNISolone INJ 125 MG/2 ML VIAL (J2930) IV SCH (12:52)
--- NOTE | 2016-06-26 13:12 | IPN ---
DATE: 06/26/2016 This is now the second hospital day for Mrs. Caal. She is breathing well and she has been able to ambulate out to the nurse's desk. She is a lot less short of breath. Her vital signs show a maximum temperature (t-max) of 97.3 with a heart rate that ranges between 81 and 90 in a sinus rhythm, respiratory rate of 18 to 22 without the use of accessory muscles who is 94 to 91% saturated on 2 liters nasal cannula. Blood pressure is ranging between 126/60 to 162/71. Her intake and output over the past 24 hours has been recorded as 1245 in and 1500 out for a negativity of 255 mL. Urine output is 1500 mL and she weighs 111.8 kg compared to 115 kg yesterday. PHYSICAL EXAMINATION: LUNGS: Her lungs show equal breath sounds on either side. There are still some inspiratory rales and crackles in the right lower hemithorax. These are also noted in the left hemithorax, but they are much less. Percussion note is full to the diaphragm, as far as I can tell through her morbid obesity. CARDIAC: Cardiac exam is without murmurs, clicks, gallops or rubs. I cannot feel her point of maximal impulse (PMI). S1 and S2 are normal. ABDOMEN: Soft and nontender. Bowel sounds are positive. There is no hepatomegaly. No costovertebral angle (CVA) tenderness that I can feel through her obesity. EXTREMITIES: Show no pretibial edema. No calf tenderness. No differential swelling of the upper extremities. She does have increased subcutaneous tissue pretibially but it does not feel like edema. Skin is warm, dry and perfused without cyanosis or mottling, including that of the nail beds and the knees. NECK: Neck is supple. There is no jugular venous distention. No subcutaneous emphysema. Trachea is midline. MOUTH: Shows her mucous membranes to be pink and moist. Lips and commissures are without lesions. There is no thrush. Eyes show her pupils to be equal, reactive. Extraocular muscles intact. Sclera anicteric. NEUROLOGIC: Shows II through XII intact. Gross motor and gross sensation intact. Gait is not tested. Psychiatric shows her to be awake, alert and oriented times three with appropriate mood, affect and conversational. Her white count today is down to 3.4 with hemoglobin and hematocrit of 9.1 and 28.8, essentially unchanged from yesterday of 9.3 and 29.1. Platelet count is 318 and differential shows 79% neutrophils, 11% lymphocytes, 6% monocytes. There are no immature forms, no toxic granulations. Her sodium is 133 with a potassium of 5.0. BUN and creatinine are 18 and 1.17, essentially unchanged from yesterday. Her BNP is now down to 167 from 393 yesterday. Her chest x-ray shows the lung fully expanded to the chest wall. There is more volume on the right side than there was on admission. She still has an infiltrative process in the right lower hemithorax, along with the left hemithorax, but they look to be improved and less opaque. The right middle lobe in the upper right hemithorax also looks to be better. The lateral film still shows the infiltrative process in the right and left lower lobes, but that too looks a little bit more lucent. IMPRESSION: 1. Congestive heart failure (CHF). 2. Chronic obstructive pulmonary disease (COPD) exacerbation. 3. Morbid obesity. 4. 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 5. Stage IA adenocarcinoma right upper lobe. 6. Status post right upper lobectomy. 7. Diabetes. 8. Hypertension. 9. COPD. 10. Depression. 11. Hyperlipidemia. 12. Renal insufficiency. 13. Anemia. 14. Gout. PLAN AND DISCUSSION: I think that we are heading in the right direction. I suspect that this is more congestive heart failure (CHF) than it is pneumonia. I have never been convinced that she has had a pneumonia. We should continue to diurese her. I have spoken with Dr. Gabriel of the hospitalist service and we are in agreement with her plan of treatment.
[2016-06-26 15:38] VITALS: BP 125/58
[2016-06-26 20:00] VITALS: BP 146/66
[2016-06-26] MEDS: ATORVASTATIN 20 MG TAB PO SCH (21:02)
[2016-06-26] MEDS: traZODone 50 MG TAB PO SCH (21:02)
[2016-06-26] MEDS: ALLOPURINOL 100 MG TAB PO SCH (21:03)
--- NOTE | 2016-06-26 21:32 | ECHO ---
DATE OF PROCEDURE: 06/26/2016 REFERRING PHYSICIAN: Mayuri Gabriel MD INDICATION: Dyspnea. HEIGHT: 168 cm WEIGHT: 112 kg MEASUREMENTS: Ventricular septum: 1.15 cm Posterior wall: 1.16 cm Left ventricle diastole: 4.3 cm Left atrium: 3.6 cm Aortic root: 2.8 cm LVOT: 1.7 cm Inferior vena cava: 2.2 cm DOPPLER MEASUREMENTS: Aortic valve velocity: 210 cm/s LVOT velocity: 170 cm/s LVOT VTI: 34.6 cm Mitral E velocity: 123 cm/s Mitral A velocity: 114 cm/s Mitral deceleration time: 239 ms Very mild tricuspid regurgitation. Pulmonary artery systolic pressure 44 mmHg by pulmonary artery acceleration time method. MITRAL ANNULAR TISSUE DOPPLER: E prime septal: 5.6 cm/s (question) E prime lateral: 10.0 cm/s DESCRIPTION: Rhythm was sinus. This is a moderately technically difficult echocardiogram. This is a 2D, M-mode, color flow Doppler and pulse wave Doppler examination that included mitral annular tissue Doppler. CONCLUSIONS: 1. Hyperdynamic left ventricle systolic function. Left ventricular ejection fraction (LVEF) 35% by visual estimate. Normal LV internal dimensions and wall thickness. No regional wall motion abnormalities. Normal LV diastolic function for age. 2. Suggestive of moderate elevation of pulmonary artery systolic pressure. Normal right ventricle size and hyperdynamic RV systolic function. 3. Tiny pericardial effusion. No diastolic chamber collapse. No significant variation of respiratory intracardiac velocities. 4. Moderately technically difficult echocardiogram.
[2016-06-27] VITALS: BP 130/59
[2016-06-27] MEDS: IPRATROPIUM 0.5MG/ALBUTEROL 2.5MG INH SOL UD 3ML (DUONEB)(J7620) NEB SCH ×4 (00:26→23:24)
[2016-06-27] MEDS: MEROPENEM INJ 1 GM in D5W MINI-BAG PLUS 100 ML IV SCH ×2 (00:33→09:13)
[2016-06-27] MEDS: PERCOCET 5MG/325MG TAB PO PRN (00:33)
[2016-06-27] MEDS: methylPREDNISolone INJ 125 MG/2 ML VIAL (J2930) IV SCH (00:33)
[2016-06-27] MEDS ORDERED: SLF 3 ML SYR IV PRN (01:00)
[2016-06-27 05:00] VITALS: BP 141/63
[2016-06-27] MEDS: LEVOTHYROXINE 0.05 MG TAB (50 MCG) PO SCH (05:06)
[2016-06-27] MEDS: SLF 3 ML SYR IV SCH ×3 (05:07→20:08)
[2016-06-27 05:48] LABS: BASO % 0.1 % (0.0-1.0); EOS % 0.3 % (0.0-3.0); LARGE UNSTAINED CELL # 0.1 K/mm3 (0.0-0.4); LARGE UNSTAINED CELL % 1.4 % (0.0-4.0); LYMPH # 0.4 K/mm3 (1.5-4.5); LYMPH % 8.9 % (24.0-44.0); MEAN CORPUSCULAR HEMOGLOBIN 28.6 pg (27.0-33.0); MEAN CORPUSCULAR HGB CONC 31.6 g/dl (32.0-36.5); MEAN CORPUSCULAR VOLUME 90.3 fl (80.0-96.0); MONO # 0.3 K/mm3 (0.0-0.8); MONO % 5.3 % (0.0-5.0); PLATELET COUNT, AUTOMATED 341 k/mm3 (150-450); RED CELL DISTRIBUTION WIDTH 15.5 % (11.5-14.5); WHITE BLOOD COUNT 4.8 K/mm3 (4.0-10.0)
[2016-06-27 06:05] LABS: CALCIUM LEVEL 8.1 MG/DL (8.8-10.2); CREATININE FOR GFR 1.25 MG/DL (0.55-1.02); GLOMERULAR FILTRATION RATE 45.1 (>39); POTASSIUM SERUM 4.9 MEQ/L (3.5-5.1)
[2016-06-27] MEDS: ADVAIR DISKUS 500/50 INH PWD INH SCH ×2 (07:55→21:00)
[2016-06-27] MEDS: TIOTROPIUM INHALER/CAPSULE (SPIRIVA) INH SCH (07:55)
[2016-06-27 08:00] VITALS: BP 135/59
[2016-06-27] MEDS: HumaLOG INSULIN (NovoLOG) PER UNIT SC SCH ×4 (08:05→20:06)
[2016-06-27] MEDS: POTASSIUM CHLORIDE 10 MEQ SR TABLET PO SCH ×2 (08:06→20:07)
[2016-06-27] MEDS: VENLAFAXINE 37.5 MG TAB PO SCH ×2 (08:06→20:07)
[2016-06-27] MEDS: FERROUS SULFATE 325MG TAB PO SCH (08:06)
[2016-06-27] MEDS: LORazepam 0.5 MG TAB PO SCH ×2 (08:06→20:07)
[2016-06-27] MEDS: FAMOTIDINE 20 MG TAB PO SCH (08:06)
[2016-06-27] MEDS: ASPIRIN 81 MG ENTERIC TAB PO SCH (08:06)
[2016-06-27] MEDS: PANTOPRAZOLE 40MG TAB (PROTONIX) PO SCH (08:07)
[2016-06-27] MEDS: CALCIUM/VITAMIN D 500 MG TAB PO SCH (08:07)
[2016-06-27] MEDS: LISINOPRIL 10 MG TAB PO SCH (08:07)
[2016-06-27] MEDS: DULoxetine 30 MG CAP (CYMBALTA) PO SCH (08:07)
[2016-06-27] MEDS: MAGNESIUM OXIDE 400 MG TAB (MAG-OX) PO SCH ×3 (08:07→20:08)
[2016-06-27] MEDS: DIGOXIN 0.25 MG TAB PO SCH (08:07)
--- NOTE | 2016-06-27 08:17 | REP ---
TWO VIEWS OF THE CHEST: The present study is compared to that of 06/26/2016. The homogenous density at the right lung base is again identified. There are no air bronchograms. The RUL oval opacity is unchanged. The lung markings at both bases are increased. The cardiomediastinal structures, remaining lungs and bony thorax are unremarkable. IMPRESSION: The radiopacity at the right lung base and RUL is unchanged. This could representconsolidation, atelectasis, and possibly pleural effusion. Mass lesion in RUL cannot be excluded. Recommend chest CT with contrast for further evaluation Unreviewed MTDD
--- NOTE | 2016-06-27 09:03 | PHACANCOPD ---
PHARMACY VANCOMYCIN DOSING Pt Demographics Demographics Patient Age:70 , Weight:111.900 , Gender: female Adjusted Body Weight Date: 06/25/16, Adjusted Body Weight: Kg Events Past 24 Hours Events Past 24 Hours: NO: Change in CrCl, Dialysis, Diuretic Therapy, Elevation in WBC, Fever, Other, Pending Diagnostics, Pending Procedures Vancomycin Vancomycin indication: HCAP Vancomycin Target Ranges: 10-20 mcg/ml Vancomycin Load Y/N: Yes Load Dose Date Time Vancomycin Load Dose: 1250MG Date: 06/25/2015 Time:1800 Vancomycin Dose Date: 06/26/16. Current Vancomycin Dose: [750MG IV Q12H @ 0600] Intermittent Dosing?: No Labs Labs Item Value Date Time White Blood Count 6.0 K/mm3 06/25/16 06 White Blood Count 3.4 K/mm3 L 06/26/16 05 White Blood Count 4.8 K/mm3 06/27/16 0524 Creatinine 1.16 MG/DL H 06/25/16 06 Creatinine 1.17 MG/DL H 06/26/16 0529 Creatinine 1.25 MG/DL H 06/27/16 0524 Vancomycin Level Trough 13.3 UG/ML 06/27/16 0803 Micro Microbiology 06/24/16 Blood Culture - Preliminary, Resulted No Growth after 48 hours. All Specime... 06/24/16 Blood Culture - Preliminary, Resulted No Growth after 48 hours. All Specime... 06/25/16 Gram Stain - Final, Resulted 06/25/16 Sputum Culture, Resulted Pending 06/25/16 Respiratory Virus Panel (PCR) (PIA) - Final, Complete 06/24/16 Influenza Virus Type A Antigen - Final, Complete 06/24/16 Influenza Virus Type B Antigen - Final, Complete Creatinine Clearance Date:06/25/16. Creatinine Clearance: [45ML/MIN]. Assessment and Plan Maintaining Current Dose?: Yes Reason for dose change: No Dose Change Pharmacist Note Pharmacist Note Date: 06/27/16. Pharmacist note:Trough was therapeutic (13.3) No positive cultures at this time. Continue with current dosing. Monitor renal function and adjust dose as necessary. Date: 06/25/16. Pharmacist note: Vanco 1250mg IV @ 1800 followed in 12 hours with 750mg IV Q12H @ 0600. Patients cultures are currently pending. Patient produced a therapeutic trough with a similar regimen 1 month ago. Monitor renal function and adjust dose as needed. Trough is scheduled after 3 doses ( @ 0500) ELIEL [facility] Jun 27, 2016 09:03
--- NOTE | 2016-06-27 09:53 | IPN ---
DATE: 06/27/2016 Ms. Caal continues to do well. She is very comfortable breathing and is not having any dyspnea. She is able to walk around with minimal shortness of breath. Her vital signs show a T-max of 96.5 with a heart rate that ranges between 71 and 84 in a sinus rhythm, respiratory rate that is constant at 20 who is 96-93% saturated on 3 liters nasal cannula and has blood pressures ranging between 141/63 to 125/58. Her intake and output over the past 24 hours has been recorded as 1660 in and 2925 out for a negativity of 1200 mL. She weighs 111.9 kg today compared to 111.8 kg yesterday. All of her output has been in urine output of 2925 mL. On physical examination, her lungs show equal breath sounds on either side. I hear some very faint crackles through her morbid obesity during inspiration but they are much better than they have been. Percussion note is full to the diaphragm as far as I can tell through her morbid obesity. Cardiac exam is without murmurs, clicks, gallops or rubs. I certainly cannot feel her PMI. S1 and S2 are normal. Abdomen is soft, nontender, bowel sounds are positive. There is no hepatomegaly that I can appreciate and there is no CVA tenderness. Extremities show no pretibial edema. No calf tenderness. No differential swelling of the upper extremities. She does have increased subcutaneous tissue pretibially. Skin is warm, dry and perfused without cyanosis or mottling including that of the nail beds and knees. Neck is supple. There is no jugular venous distention. No subcutaneous emphysema. Trachea is midline. Mouth shows her mucous membranes to be pink and moist. Lips and commissures are without lesions. No thrush. Eyes show her pupils to be equal and reactive. Extraocular motor intact. Sclera anicteric. Neuro shows II through XII intact with gross motor and gross sensation intact. Gait is not tested Psychiatric shows her to be awake and alert, oriented times three with appropriate mood and affect and conversational. Her white count today is 4.8 with hemoglobin and hematocrit of 9.2 and 29.1 slightly improved from 9.1 and 28 yesterday. Platelet count is 341 and differential shows 84% neutrophils, 8% lymphocytes, 5% monocytes. There are no immature forms. No toxic granulations. Her electrolytes show a sodium of 131 with a BUN and creatinine of 22 and 1.25. This reflects her diuresis. Glucose is 307 with a calcium of 8.1. There are no blood gases on her today. Her chest x-ray today still shows the bilateral infiltrates in the lower lobes. They continue to improve. I am starting to suspect this is all failure rather than actual pneumonia. There is no doubt, however, that the CAT scan did show consolidation in the right lower lobe segment medially and posteriorly. IMPRESSION: 1. Congestive heart failure. 2. Chronic obstructive pulmonary disease (COPD). 3. Morbid obesity. 4. 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 5. Stage 1 adenocarcinoma right upper lobe, resected. 6. Status post right upper lobectomy. 7. Diabetes. 8. Hypertension. 9. Depression. 10. Hyperlipidemia. 11. Renal insufficiency. 12. Anemia. 13. Gout. PLAN AND DISCUSSION: We should continue to diurese her. Her baseline renal failure is compromised and I think we need to get more fluid off her. I will put her on a fluid restriction of 2000 mL. I have never been convinced that she has had pneumonia, however, she is still on antibiotics consisting of vancomycin and meropenem. I can foresee her being discharged in the next one or two days.
[2016-06-27] MEDS ORDERED: ZYVO100T PO (10:07)
--- NOTE | 2016-06-27 11:03 | IPN ---
DATE OF EXAMINATION: 06/27/2016 SUBJECTIVE: The patient tells me she continues to feel better today. She is feeling better today than she did yesterday; and yesterday, she felt better than the day before. She tells me that she is breathing easily. She is comfortable. She denies any chest pain, shortness of breath, fevers, chills, nausea, vomiting , or diarrhea. OBJECTIVE: VITAL SIGNS: Temperature 96.5, pulse 80, respiratory rate 20, blood pressure 135/59, oxygen saturation she is 90% on room air while at rest on examining her. HEENT: Cranial nerves II-XII are grossly intact. She has moist mucous membranes. Difficult to assess for any elevation in central venous pressure. CARDIOVASCULAR EXAMINATION: S1, S2. She is not tachycardic. RESPIRATORY EXAMINATION: Is fairly good air movement. No wheezes, rhonchi, or rales. ABDOMINAL EXAMINATION: Is benign. Obese. EXTREMITIES: No clubbing, cyanosis. There is 1+ edema bilaterally. LABORATORY STUDIES: Today, WBC 4.8, hemoglobin 9.2, hematocrit 29.1, platelet count is 341. Chemistry panel: Sodium 131, potassium 4.9, chloride 92, bicarbonate 30, BUN 22 , creatinine 1.2, BNP yesterday was down trending. MICROBIOLOGY: Sputum culture is normal nae, no organisms. Respiratory panel is negative. Blood cultures are negative at 48 hours. Influenza swab is negative. The patient has a chest x-ray this morning, which reveals unchanged opacities. ASSESSMENT AND PLAN: This is a 70-year-old female with dyspnea and hypoxia. PROBLEMS: 1. Dyspnea and hypoxia. The patient has a history of chronic obstructive pulmonary disease (COPD). Did not have an oxygen (O2) requirement but was recently diagnosed with lung cancer and is status post lobectomy with Dr. Alexander just over a week ago. The patient presented with vastly worsening shortness of breath. At the present time, we are treating her for decompensated COPD with intravenous (IV) Solu-Medrol. She is on nebulizer treatments. She is improving and, as such, I will narrow. I will convert her IV Solu-Medrol to by mouth prednisone. The patient is also being treated for healthcare-associated pneumonia with vancomycin and meropenem. She has grown Staphylococcus aureus in the past and sensitive to linezolid. Sputum culture is negative this time. Today is day #3 of day #7 of antibiotics. I will discontinue vancomycin and meropenem and switch her to linezolid by mouth and send a prescription to her pharmacy in hopes of obtaining a prior authorization. My suspicion for pneumonia is lower. I agree with Dr. Alexander. 2. Acute on chronic diastolic heart failure. The patient did have an echocardiogram completed, which reveals hyperdynamic left ventricle (LV) systolic function, ejection fraction (EF) of 35% by visual estimate, normal diastolic function, suggestive of moderate elevation of pulmonary arterial pressure, tiny pericardial effusion. The patient has been aggressively diuresed with Lasix. However, she is now developing hyponatremia and a rising blood urea nitrogen (BUN) and creatinine. I suspect that she still has fluid on board. We may have to slow the rate at which we are diuresing her. I feel that this is likely the predominant cause for her symptoms of dyspnea and hypoxia at the time of admission. At this time, she does appear to be improved. The patient normally follows with Dr. Esposito. I would recommend she followup with him regarding her systolic congestive heart failure. She is on an aspirin. She is on an angiotensin-converting enzyme (MICHELLE) inhibitor. She is not on a beta rajwinder. I would not start one while she is acutely decompensated or with given her advanced COPD. Should her blood pressure allow, I could consider the addition of Aldactone. 3. Vitamin D deficiency. She is on supplementation. 4. Type 2 diabetes. She is on sliding scale insulin. 5. Atrial fibrillation. She is on digoxin. She is not anticoagulated likely for her propensity of falls, given that she walks with a walker at her baseline. 6. Anemia. The patient is iron deficiency. She is on ferrous sulfate. Could consider outpatient colonoscopy. I have ordered an occult stool for blood. 7. Mood disorder. The patient is on Cymbalta and Effexor. 8. Gastroesophageal reflux disease. The patient is on Pepcid. 9. Hypertension. The patient is on lisinopril. She is fairly well controlled. 10. Hypothyroidism. The patient is on Synthroid. 11. Anxiety. She is on lorazepam. 12. Insomnia. She is on trazodone. 13. Gout. She is on allopurinol. 14. Dyslipidemia. The patient is on Lipitor. 15. Coronary artery disease. The patient is on an aspirin and a statin. She is not on a beta rajwinder, likely secondary to her pulmonary disease; and also, I would not start at this time, given her acute decompensation of systolic heart failure. ROMERO
[2016-06-27 11:36] VITALS: BP 147/71
[2016-06-27] MEDS: SPIRONOLACTONE 12.5MG PER 1/2 TABLET PO SCH (11:43)
[2016-06-27] MEDS: LINEZOLID 600MG TABLET (ZYVOX) PO SCH ×2 (11:43→20:07)
[2016-06-27] MEDS: FUROSEMIDE 40 MG TAB PO SCH (11:43)
[2016-06-27] MEDS: predniSONE 20 MG TAB PO SCH (11:43)
[2016-06-27 15:50] VITALS: BP 134/65
--- NOTE | 2016-06-27 17:51 | EDDOCDS ---
Physician Documentation [facility] Name: Dacia Caal Age: 70 yrs Sex: Female : 1945 Arrival Date: 06/24/2016 Time: 16:25 Bed Admit Hold Private MD: Moiz Coulter; Malik Daley; Merlin Aceves Disposition: 06/24/16 20:39 Hospitalization ordered by Odilon Johnston for Inpatient Admission. Preliminary diagnosis is Pneumonia, unspecified organism. - [facility] - Status is Inpatient Admission. mcp - Condition is Stable. - Problem is new. - Symptoms are unchanged. Historical: - Allergies: PENICILLINS; - Home Meds: 1. Spiriva with HandiHaler 18 mcg Inhl CpDv once daily 2. ProAir HFA 90 mcg/actuation inhalation HFAA every 6 hours 3. Advair Diskus 500-50 mcg/dose Inhl dsdv 1 puff 2 times per day 4. fluticasone 50 mcg/actuation nasal spsn 2 sprays 2 times per day 5. esomeprazole 50 mg daily 6. ranitidine HCl 150 mg Oral tab 1 tab once daily 7. levothyroxine 50 mcg Oral cap 1 cap once daily 8. Novolog 100 unit/mL Sub-Q soln 10 unit with each meal 9. Lantus 100 unit/mL Sub-Q crtg 90 units in the am 85 units at night. 10. Potassium Chloride Unknown Oral 3 caps 3 times per day 11. trazodone 100 mg Oral tab 1 tab at bedtime 12. metolazone oral Unknown oral once a week 13. aspirin 81 mg oral tab 1 tab once daily 14. prever vision areds Unknown Unknown twice a day (Last dose: 06/24/2016) 15. lisinopril 10 mg Oral tab 1 tab once daily 16. atorvastatin 40 mg oral tab 1 tab once daily 17. allopurinol 100 mg Oral tab nightly 18. vitafusion vitamins Unknown 2 tab daily 19. furosemide 80 mg Oral tab 1 tab in am 20. furosemide 40 mg Oral tab 1 tab at noon 21. beta carotene 25,000 unit oral cap daily 22. magnesium oxide 400 mg Oral cap daily 23. Colace 100 mg oral cap 1 cap as needed 24. allergy tabs Unknown Unknown daily 25. Vitamin D 1.25 mg Oral weekly 26. tramadol 50 mg Oral tab no more than 4 a day 27. Fish Oil 1200 mg Oral three times a day 28. cymbalta/duloxetine 3 mg at noon - PMHx: back pain; CHF; COPD; Diabetes - IDDM: uncontrolled; GERD; Hypercholesterolemia; Hypertension; Pneumonia; sleep apnea with c pap; - PSHx: Cholecystectomy; Hysterectomy; Appendectomy; Disc surgery; Lobectomy- RUL; - Social history: Smoking status: Patient states former smoker of tobacco. No barriers to communication noted, The patient speaks fluent Lebanese. - Family history: No immediate family members are acutely ill. - : The pt / caregiver states he / she is not on anticoagulants. Home medication list is obtained from the patient. - Exposure Risk Screening:: None identified. Vital Signs: 06/24 16:31 Pulse 94 MON; Resp 20; Pulse Ox 70% on R/A; hs1 16:32 BP 157 / 72 (auto/); hs1 16:33 Pulse 88 MON; Pulse Ox 89% ; hs1 16:37 BP 137 / 57 (auto/); hs1 16:37 Pulse 86 MON; Resp 20; Pulse Ox 93% 3 lpm ; hs1 16:51 Pulse 86 MON; Pulse Ox 92% ; hs1 16:52 BP 137 / 60 (auto/); hs1 17:07 BP 143 / 65 (auto/); af2 17:22 Pulse 85; Resp 18; Temp 98.7(O); Pulse Ox 91% ; Weight 116.12 kg / 256 lbs (R); Height hs1 5 ft. 6 in. (167.64 cm) (R); 19:07 BP 142 / 64 (auto/); af2 19:07 Pulse 86 MON; Resp 18 S; Pulse Ox 94% on 2 lpm NC; af2 20:52 BP 142 / 63 (auto/); af2 20:52 Pulse 96 MON; Resp 18 S; Pulse Ox 93% on 3 lpm NC; af2 21:52 BP 135 / 60 (auto/); af2 21:52 Pulse 90 MON; Resp 18 S; Pulse Ox 95% on 3 lpm NC; af2 22:07 BP 141 / 60 (auto/); af2 22:07 Pulse 88 MON; Resp 18 S; Pulse Ox 96% on 3 lpm NC; af2 23:04 BP 144 / 69 (auto/); af2 23:06 Pulse 92 MON; Resp 18 S; Pulse Ox 90% on 3 lpm NC; af2 06/25 00:04 BP 135 / 61 (auto/); af2 00:04 Pulse 82 MON; Resp 18 S; Pulse Ox 93% on 3 lpm NC; af2 02:12 BP 149 / 67 (auto/); mv5 02:13 Pulse 86 MON; Pulse Ox 92% on 3 lpm NC; mv5 03:16 BP 157 / 70 (auto/); mv5 03:16 Pulse 86 MON; Pulse Ox 94% on 3 lpm NC; mv5 03:46 BP 134 / 63 (auto/); mv5 03:46 Pulse 86 MON; Pulse Ox 93% on 3 lpm NC; mv5 04:16 BP 159 / 69 (auto/); mv5 04:17 Pulse 86 MON; Pulse Ox 94% on 3 lpm NC; mv5 04:46 BP 139 / 59 (auto/); mv5 04:46 Pulse 84 MON; Pulse Ox 95% on 3 lpm NC; mv5 05:16 BP 145 / 64 (auto/); mv5 05:16 Pulse 86 MON; Pulse Ox 92% on 3 lpm NC; mv5 05:46 BP 150 / 63 (auto/); mv5 05:46 Pulse 86 MON; Pulse Ox 93% on 3 lpm NC; mv5 06:16 BP 147 / 64 (auto/); mv5 06:16 Pulse 84 MON; Pulse Ox 92% on 3 lpm NC; mv5 06/24 17:22 Body Mass Index 41.32 (116.12 kg, 167.64 cm) hs1 MDM: 06/24 16:31 -Blood Culture (Adults Only), peripheral from different site, or from device/port/PICC sd1 etc. if present ordered. 16:31 Childcare Teacher/Pulse Ox/q 15 min VS ordered. sd1 16:31 IV Saline Lock ordered. sd1 16:31 Oxygen at 4L/Min NC or Home dosage ordered. sd1 16:31 Rhythm Strip to chart ordered. sd1 16:32 B-Type Natiuretic Peptide Ordered. EDMS 16:32 Basic Metabolic Profile Ordered. EDMS 16:32 CBC with Diff Ordered. EDMS 16:32 Cardiac Injury Profile Ordered. EDMS 16:32 Troponin Ordered. EDMS 16:32 -Blood Culture Ordered. EDMS 16:32 Chest, 1 View Ordered. EDMS 16:32 ECG WITH READING ER PHYS+CARDIAG ordered. EDMS 16:45 BLOOD CULTURES Ordered. EDMS 16:49 -Blood Culture (Adults Only), peripheral from different site, or from device/port/PICC mt4 etc. if present complete. 16:57 -Influenza A&B Rapid Antigen - Nose Ordered. EDMS 17:15 Oral Temp ordered. br1 18:06 B-Type Natiuretic Peptide Reviewed. br1 18:06 Basic Metabolic Profile Reviewed. br1 18:06 CBC with Diff Reviewed. br1 18:06 Cardiac Injury Profile Reviewed. br1 18:06 Troponin Reviewed. br1 18:06 -Influenza A&B Rapid Antigen - Nose Reviewed. br1 18:06 Chest, 1 View Reviewed. br1 18:10 Call Respiratory ordered. br1 18:10 Albuterol-Ipratropium 3 ml Inhalation once ordered. br1 18:12 BED REQUEST+ADM ordered. EDMS 18:13 Call Respiratory complete. mt4 18:14 Financial registration complete. zo 18:29 PCR was scanned into [employer] and attached to record. mt4 18:30 PCR was scanned into [employer] and attached to record. mt4 18:44 [facility] [place] was scanned into [employer] and attached to record. zo 20:37 levofloxacin 750 mg IVPB once over 90 mins ordered. br1 21:03 CT ANGIO CHEST Ordered. EDMS 21:04 Chest, 2 view PA, Lat Ordered. EDMS 21:24 BASIC METABOLIC PROFILE Ordered. EDMS 21:25 PHYSICAL THERAPY EVAL & TREAT ordered. EDMS 21:27 CONSISTENT CARBOHYDRATES ordered. EDMS 21:50 SPUTUM CULTURE AND GRAM STAIN Ordered. EDMS 23:44 Chest, 2 view PA, Lat Ordered. EDMS 23:44 Chest, 2 view PA, Lat Ordered. EDMS 23:44 Chest, 2 view PA, Lat Ordered. EDMS 23:44 Chest, 2 view PA, Lat Ordered. EDMS 23:44 Chest, 2 view PA, Lat Ordered. EDMS 23:44 Chest, 2 view PA, Lat Ordered. EDMS 23:44 Chest, 2 view PA, Lat Ordered. EDMS 23:45 Chest, 2 view PA, Lat Ordered. EDMS 23:45 Chest, 2 view PA, Lat Ordered. EDMS 23:45 Chest, 2 view PA, Lat Ordered. EDMS 23:48 ARTERIAL BLOOD GAS Ordered. EDMS 23:48 CBC WITH DIFFERENTIAL Ordered. EDMS 06/25 02:57 Admission / Observation Status ordered. EDMS 11:21 RESPIRATORY PANEL Ordered. EDMS 12:36 SPUTUM CULTURE AND GRAM STAIN Ordered. EDMS 14:48 FERRITIN Ordered. EDMS 14:48 TOTAL IRON BINDING CAPACIT Ordered. EDMS 14:51 RETICULOCYTE COUNT Ordered. EDMS 06/26 14:36 T-Sheet-- Draft Copy was scanned into [employer] and attached to record. gb 14:36 ECG/EKG was scanned into [employer] and attached to record. gb 14:36 Trend VS was scanned into [employer] and attached to record. gb 14:37 Radiology Report was scanned into [employer] and attached to record. gb Administered Medications: 06/24 18:33 Drug: Albuterol-Ipratropium 3 ml [ipratropium-albuterol 0.5 mg-3 mg(2.5 mg base)/3 mL cs15 nebulization soln (3 mL)] Route: Inhalation; 20:59 Drug: levofloxacin 750 mg [levofloxacin 750 mg/150 mL in 5 % dextrose intravenous mv5 piggyback] Route: IVPB; Infused Over: 90 mins; Site: left antecubital; 22:30 Follow up: IV Status: Completed infusion mv5 Signatures: Dispatcher [employer] EDAR Thea Pradhan MD MD sdErica Nick RN RN [facility] Bobbi Gunter, Reg Reg Tana Canales Brian, MD MD br1 Anaya Shankar mt4 Roberto Donnelly RN RN mb9 Andreas Baez RN RN [facility] Dominga Holley RN RN mv5 Ren Jaeger RT [id number] The chart was reviewed and I authenticate all verbal orders and agree with the evaluation and treatment provided.Corrections: (The following items were deleted from the chart) 23:52 21:24 COMPLETE BLOOD COUNT ordered. EDAR EDMS 06/25 14:48 14:45 FERRITIN ordered. EDAR EDMS 14:48 14:45 TOTAL IRON BINDING CAPACIT ordered. EDAR EDMS 14:48 14:45 IRON (FE) ordered. EDMS EDMS 14:51 14:46 RETICULOCYTE COUNT ordered. EDMS EDMS 15:01 06/24 23:48 RESPIRATORY PANEL ordered. EDMS EDMS Attachments: 18:44 [facility] Payment Agreement zo 06/26 14:36 T-Sheet-- Draft Copy gb 14:36 ECG/EKG gb Chart Complete MTDD
--- NOTE | 2016-06-27 17:51 | EDDOCDS ---
Physician Documentation [facility] Name: Dacia Caal Age: 70 yrs Sex: Female : 1945 Arrival Date: 06/24/2016 Time: 16:25 Bed Admit Hold Private MD: Moiz Coulter; Malik Daley; Merlin Aceves Disposition: 06/24/16 20:39 Hospitalization ordered by Odilon Johnston for Inpatient Admission. Preliminary diagnosis is Pneumonia, unspecified organism. - [facility] - Status is Inpatient Admission. mcp - Condition is Stable. - Problem is new. - Symptoms are unchanged. Historical: - Allergies: PENICILLINS; - Home Meds: 1. Spiriva with HandiHaler 18 mcg Inhl CpDv once daily 2. ProAir HFA 90 mcg/actuation inhalation HFAA every 6 hours 3. Advair Diskus 500-50 mcg/dose Inhl dsdv 1 puff 2 times per day 4. fluticasone 50 mcg/actuation nasal spsn 2 sprays 2 times per day 5. esomeprazole 50 mg daily 6. ranitidine HCl 150 mg Oral tab 1 tab once daily 7. levothyroxine 50 mcg Oral cap 1 cap once daily 8. Novolog 100 unit/mL Sub-Q soln 10 unit with each meal 9. Lantus 100 unit/mL Sub-Q crtg 90 units in the am 85 units at night. 10. Potassium Chloride Unknown Oral 3 caps 3 times per day 11. trazodone 100 mg Oral tab 1 tab at bedtime 12. metolazone oral Unknown oral once a week 13. aspirin 81 mg oral tab 1 tab once daily 14. prever vision areds Unknown Unknown twice a day (Last dose: 06/24/2016) 15. lisinopril 10 mg Oral tab 1 tab once daily 16. atorvastatin 40 mg oral tab 1 tab once daily 17. allopurinol 100 mg Oral tab nightly 18. vitafusion vitamins Unknown 2 tab daily 19. furosemide 80 mg Oral tab 1 tab in am 20. furosemide 40 mg Oral tab 1 tab at noon 21. beta carotene 25,000 unit oral cap daily 22. magnesium oxide 400 mg Oral cap daily 23. Colace 100 mg oral cap 1 cap as needed 24. allergy tabs Unknown Unknown daily 25. Vitamin D 1.25 mg Oral weekly 26. tramadol 50 mg Oral tab no more than 4 a day 27. Fish Oil 1200 mg Oral three times a day 28. cymbalta/duloxetine 3 mg at noon - PMHx: back pain; CHF; COPD; Diabetes - IDDM: uncontrolled; GERD; Hypercholesterolemia; Hypertension; Pneumonia; sleep apnea with c pap; - PSHx: Cholecystectomy; Hysterectomy; Appendectomy; Disc surgery; Lobectomy- RUL; - Social history: Smoking status: Patient states former smoker of tobacco. No barriers to communication noted, The patient speaks fluent Martiniquais. - Family history: No immediate family members are acutely ill. - : The pt / caregiver states he / she is not on anticoagulants. Home medication list is obtained from the patient. - Exposure Risk Screening:: None identified. Vital Signs: 06/24 16:31 Pulse 94 MON; Resp 20; Pulse Ox 70% on R/A; hs1 16:32 BP 157 / 72 (auto/); hs1 16:33 Pulse 88 MON; Pulse Ox 89% ; hs1 16:37 BP 137 / 57 (auto/); hs1 16:37 Pulse 86 MON; Resp 20; Pulse Ox 93% 3 lpm ; hs1 16:51 Pulse 86 MON; Pulse Ox 92% ; hs1 16:52 BP 137 / 60 (auto/); hs1 17:07 BP 143 / 65 (auto/); af2 17:22 Pulse 85; Resp 18; Temp 98.7(O); Pulse Ox 91% ; Weight 116.12 kg / 256 lbs (R); Height hs1 5 ft. 6 in. (167.64 cm) (R); 19:07 BP 142 / 64 (auto/); af2 19:07 Pulse 86 MON; Resp 18 S; Pulse Ox 94% on 2 lpm NC; af2 20:52 BP 142 / 63 (auto/); af2 20:52 Pulse 96 MON; Resp 18 S; Pulse Ox 93% on 3 lpm NC; af2 21:52 BP 135 / 60 (auto/); af2 21:52 Pulse 90 MON; Resp 18 S; Pulse Ox 95% on 3 lpm NC; af2 22:07 BP 141 / 60 (auto/); af2 22:07 Pulse 88 MON; Resp 18 S; Pulse Ox 96% on 3 lpm NC; af2 23:04 BP 144 / 69 (auto/); af2 23:06 Pulse 92 MON; Resp 18 S; Pulse Ox 90% on 3 lpm NC; af2 06/25 00:04 BP 135 / 61 (auto/); af2 00:04 Pulse 82 MON; Resp 18 S; Pulse Ox 93% on 3 lpm NC; af2 02:12 BP 149 / 67 (auto/); mv5 02:13 Pulse 86 MON; Pulse Ox 92% on 3 lpm NC; mv5 03:16 BP 157 / 70 (auto/); mv5 03:16 Pulse 86 MON; Pulse Ox 94% on 3 lpm NC; mv5 03:46 BP 134 / 63 (auto/); mv5 03:46 Pulse 86 MON; Pulse Ox 93% on 3 lpm NC; mv5 04:16 BP 159 / 69 (auto/); mv5 04:17 Pulse 86 MON; Pulse Ox 94% on 3 lpm NC; mv5 04:46 BP 139 / 59 (auto/); mv5 04:46 Pulse 84 MON; Pulse Ox 95% on 3 lpm NC; mv5 05:16 BP 145 / 64 (auto/); mv5 05:16 Pulse 86 MON; Pulse Ox 92% on 3 lpm NC; mv5 05:46 BP 150 / 63 (auto/); mv5 05:46 Pulse 86 MON; Pulse Ox 93% on 3 lpm NC; mv5 06:16 BP 147 / 64 (auto/); mv5 06:16 Pulse 84 MON; Pulse Ox 92% on 3 lpm NC; mv5 06/24 17:22 Body Mass Index 41.32 (116.12 kg, 167.64 cm) hs1 MDM: 06/24 16:31 -Blood Culture (Adults Only), peripheral from different site, or from device/port/PICC sd1 etc. if present ordered. 16:31 Textile Designer/Pulse Ox/q 15 min VS ordered. sd1 16:31 IV Saline Lock ordered. sd1 16:31 Oxygen at 4L/Min NC or Home dosage ordered. sd1 16:31 Rhythm Strip to chart ordered. sd1 16:32 B-Type Natiuretic Peptide Ordered. EDMS 16:32 Basic Metabolic Profile Ordered. EDMS 16:32 CBC with Diff Ordered. EDMS 16:32 Cardiac Injury Profile Ordered. EDMS 16:32 Troponin Ordered. EDMS 16:32 -Blood Culture Ordered. EDMS 16:32 Chest, 1 View Ordered. EDMS 16:32 ECG WITH READING ER PHYS+CARDIAG ordered. EDMS 16:45 BLOOD CULTURES Ordered. EDMS 16:49 -Blood Culture (Adults Only), peripheral from different site, or from device/port/PICC mt4 etc. if present complete. 16:57 -Influenza A&B Rapid Antigen - Nose Ordered. EDMS 17:15 Oral Temp ordered. br1 18:06 B-Type Natiuretic Peptide Reviewed. br1 18:06 Basic Metabolic Profile Reviewed. br1 18:06 CBC with Diff Reviewed. br1 18:06 Cardiac Injury Profile Reviewed. br1 18:06 Troponin Reviewed. br1 18:06 -Influenza A&B Rapid Antigen - Nose Reviewed. br1 18:06 Chest, 1 View Reviewed. br1 18:10 Call Respiratory ordered. br1 18:10 Albuterol-Ipratropium 3 ml Inhalation once ordered. br1 18:12 BED REQUEST+ADM ordered. EDMS 18:13 Call Respiratory complete. mt4 18:14 Financial registration complete. zo 18:29 PCR was scanned into [employer] and attached to record. mt4 18:30 PCR was scanned into [employer] and attached to record. mt4 18:44 [facility] [place] was scanned into [employer] and attached to record. zo 20:37 levofloxacin 750 mg IVPB once over 90 mins ordered. br1 21:03 CT ANGIO CHEST Ordered. EDMS 21:04 Chest, 2 view PA, Lat Ordered. EDMS 21:24 BASIC METABOLIC PROFILE Ordered. EDMS 21:25 PHYSICAL THERAPY EVAL & TREAT ordered. EDMS 21:27 CONSISTENT CARBOHYDRATES ordered. EDMS 21:50 SPUTUM CULTURE AND GRAM STAIN Ordered. EDMS 23:44 Chest, 2 view PA, Lat Ordered. EDMS 23:44 Chest, 2 view PA, Lat Ordered. EDMS 23:44 Chest, 2 view PA, Lat Ordered. EDMS 23:44 Chest, 2 view PA, Lat Ordered. EDMS 23:44 Chest, 2 view PA, Lat Ordered. EDMS 23:44 Chest, 2 view PA, Lat Ordered. EDMS 23:44 Chest, 2 view PA, Lat Ordered. EDMS 23:45 Chest, 2 view PA, Lat Ordered. EDMS 23:45 Chest, 2 view PA, Lat Ordered. EDMS 23:45 Chest, 2 view PA, Lat Ordered. EDMS 23:48 ARTERIAL BLOOD GAS Ordered. EDMS 23:48 CBC WITH DIFFERENTIAL Ordered. EDMS 06/25 02:57 Admission / Observation Status ordered. EDMS 11:21 RESPIRATORY PANEL Ordered. EDMS 12:36 SPUTUM CULTURE AND GRAM STAIN Ordered. EDMS 14:48 FERRITIN Ordered. EDMS 14:48 TOTAL IRON BINDING CAPACIT Ordered. EDMS 14:51 RETICULOCYTE COUNT Ordered. EDMS 06/26 14:36 T-Sheet-- Draft Copy was scanned into [employer] and attached to record. gb 14:36 ECG/EKG was scanned into [employer] and attached to record. gb 14:36 Trend VS was scanned into [employer] and attached to record. gb 14:37 Radiology Report was scanned into [employer] and attached to record. gb Administered Medications: 06/24 18:33 Drug: Albuterol-Ipratropium 3 ml [ipratropium-albuterol 0.5 mg-3 mg(2.5 mg base)/3 mL cs15 nebulization soln (3 mL)] Route: Inhalation; 20:59 Drug: levofloxacin 750 mg [levofloxacin 750 mg/150 mL in 5 % dextrose intravenous mv5 piggyback] Route: IVPB; Infused Over: 90 mins; Site: left antecubital; 22:30 Follow up: IV Status: Completed infusion mv5 Signatures: Dispatcher [employer] EDIN Thea Pradhan MD MD sdErica Nick RN RN [facility] Bobbi Gunter, Reg Reg Tana Canales Brian, MD MD br1 Anaya Shankar mt4 Roberto Donnelly RN RN mb9 Andreas Baez RN RN [facility] Dominga Holley RN RN mv5 Ren Jaeger RT [id number] The chart was reviewed and I authenticate all verbal orders and agree with the evaluation and treatment provided.Corrections: (The following items were deleted from the chart) 23:52 21:24 COMPLETE BLOOD COUNT ordered. EDIN EDMS 06/25 14:48 14:45 FERRITIN ordered. EDIN EDMS 14:48 14:45 TOTAL IRON BINDING CAPACIT ordered. EDIN EDMS 14:48 14:45 IRON (FE) ordered. EDMS EDMS 14:51 14:46 RETICULOCYTE COUNT ordered. EDMS EDMS 15:01 06/24 23:48 RESPIRATORY PANEL ordered. EDMS EDMS Attachments: 18:44 COUNTS INCLUDE 234 BEDS AT THE [facility] Payment Agreement zo 06/26 14:36 T-Sheet-- Draft Copy gb 14:36 ECG/EKG gb Chart Complete MTDD
--- NOTE | 2016-06-27 17:51 | EDDOCDS ---
Nurse's Notes [facility] Name: Pineda Valderrama Age: 70 yrs Sex: Female : 1945 Arrival Date: 06/24/2016 Time: 16:25 Bed Admit Hold Private MD: Moiz Coulter; Malik Daley; Merlin Aceves Diagnosis: Pneumonia, unspecified organism Presentation: 06/24 16:29 Presenting complaint: EMS states: "Pt had a right upper lobectomy done about a week mb9 ago. Shes been been progressively short of breath with exertion. When we got on scene the pt was wood and her room sat was 70%. We put her on 6 litres and she came up to 98-99%. Her fsbs was 149". Suicide/Homicide risk assessment- the patient denies having any suicidal and/or homicidal ideations and does not present with any other emotional, behavioral or mental health complaints. Status: Patient is not a medical billing service or dependent. Transition of care: patient was not received from another setting of care. 16:29 Acuity: VIVIEN Level 3 mb9 16:29 Method Of Arrival: Ambulance mb9 Triage Assessment: 16:33 General: Appears in no apparent distress. Pain: Denies pain. Neurological: No deficits hs1 noted. Cardiovascular: Rhythm is sinus rhythm. Respiratory: Onset: The symptoms/episode began/occurred gradually, Airway is patent Respiratory effort is unlabored, Respiratory pattern is regular, symmetrical, Breath sounds with crackles bilaterally. Derm: Skin is pink, warm & dry. normal. Historical: - Allergies: PENICILLINS; - Home Meds: 1. Spiriva with HandiHaler 18 mcg Inhl CpDv once daily 2. ProAir HFA 90 mcg/actuation inhalation HFAA every 6 hours 3. Advair Diskus 500-50 mcg/dose Inhl dsdv 1 puff 2 times per day 4. fluticasone 50 mcg/actuation nasal spsn 2 sprays 2 times per day 5. esomeprazole 50 mg daily 6. ranitidine HCl 150 mg Oral tab 1 tab once daily 7. levothyroxine 50 mcg Oral cap 1 cap once daily 8. Novolog 100 unit/mL Sub-Q soln 10 unit with each meal 9. Lantus 100 unit/mL Sub-Q crtg 90 units in the am 85 units at night. 10. Potassium Chloride Unknown Oral 3 caps 3 times per day 11. trazodone 100 mg Oral tab 1 tab at bedtime 12. metolazone oral Unknown oral once a week 13. aspirin 81 mg oral tab 1 tab once daily 14. prever vision areds Unknown Unknown twice a day (Last dose: 06/24/2016) 15. lisinopril 10 mg Oral tab 1 tab once daily 16. atorvastatin 40 mg oral tab 1 tab once daily 17. allopurinol 100 mg Oral tab nightly 18. vitafusion vitamins Unknown 2 tab daily 19. furosemide 80 mg Oral tab 1 tab in am 20. furosemide 40 mg Oral tab 1 tab at noon 21. beta carotene 25,000 unit oral cap daily 22. magnesium oxide 400 mg Oral cap daily 23. Colace 100 mg oral cap 1 cap as needed 24. allergy tabs Unknown Unknown daily 25. Vitamin D 1.25 mg Oral weekly 26. tramadol 50 mg Oral tab no more than 4 a day 27. Fish Oil 1200 mg Oral three times a day 28. cymbalta/duloxetine 3 mg at noon - PMHx: back pain; CHF; COPD; Diabetes - IDDM: uncontrolled; GERD; Hypercholesterolemia; Hypertension; Pneumonia; sleep apnea with c pap; - PSHx: Cholecystectomy; Hysterectomy; Appendectomy; Disc surgery; Lobectomy- RUL; - Social history: Smoking status: Patient states former smoker of tobacco. No barriers to communication noted, The patient speaks fluent Colombian. - Family history: No immediate family members are acutely ill. - : The pt / caregiver states he / she is not on anticoagulants. Home medication list is obtained from the patient. - Exposure Risk Screening:: None identified. Screenin/21 04:27 Screening information is obtained from the patient. Fall risk: No risks identified. mv5 Assistance ADL's: requires no assistance with activities of daily living. Abuse/DV Screen: The patient / caregiver reports he/she is: not in a situation that causes fear, pain or injury. Nutritional screening: No deficits noted. home support is adequate. 15:58 Advance Directives: Currently, there is a health care proxy, Tim Villanueva. There is no aa3 active DNR order. Assessment: 06/24 17:41 General: Appears in no apparent distress, Behavior is appropriate for age, cooperative. hs1 Neurological: Level of Consciousness is awake, alert, obeys commands. Cardiovascular: Rhythm is sinus rhythm No ectopy. Cardiovascular: Capillary refill < 3 seconds Chest pain is denied. Respiratory: Airway is patent Respiratory effort is even, unlabored, Respiratory pattern is symmetrical, Breath sounds with crackles bilaterally. Reports shortness of breath on exertion. Derm: Skin is pink, warm & dry. normal, Reports burning, under neath right thigh. No redness and swelling noted. 18:27 General: Appears in no apparent distress, comfortable, Behavior is appropriate for age, hs1 cooperative. Pain: Denies pain. Neurological: Level of Consciousness is awake, alert, obeys commands. Respiratory: Airway is patent Respiratory effort is even, unlabored, Respiratory pattern is regular, symmetrical. GI: No deficits noted. Derm: Skin is pink, warm & dry. normal. 19:07 General: Appears in no apparent distress, comfortable, Behavior is appropriate for age, af2 cooperative, Assumed care of pt at this time, pt requests meal at this time. Per Dr. Baugh, pt allowed to have meal tray which is provided at this time. Offers no other complaints. Seated upright on stretcher.. Neurological: Level of Consciousness is awake, alert, obeys commands. Cardiovascular: Capillary refill < 3 seconds Rhythm is sinus rhythm No ectopy. Respiratory: Airway is patent Respiratory effort is even, unlabored, Respiratory pattern is regular, symmetrical, Breath sounds with crackles bilaterally. in left lower lobe, right lower lobe, left posterior lower lobe and right posterior lower lobe. Derm: Skin is normal. 20:00 General: Appears in no apparent distress, comfortable, Behavior is appropriate for age, af2 cooperative, pt seated on stretcher resting quietly, offers no complaints.. 21:08 General: assisted with urination at this time.. af2 22:00 General: Appears in no apparent distress, comfortable, Behavior is appropriate for age, af2 cooperative. Neurological: Level of Consciousness is awake, alert, obeys commands. Respiratory: Airway is patent Respiratory effort is even, unlabored. Derm: Skin is normal. 23:00 General: Appears in no apparent distress, comfortable, Behavior is appropriate for age, af2 cooperative. Neurological: Level of Consciousness is awake, alert, obeys commands. Respiratory: Airway is patent Respiratory effort is even, unlabored. 06/25 00:29 General: Appears in no apparent distress, comfortable, Behavior is appropriate for age, af2 cooperative. Neurological: Level of Consciousness is awake, alert, obeys commands. Respiratory: Airway is patent Respiratory effort is even, unlabored. Derm: Skin is normal. 03:14 General: Appears in no apparent distress, comfortable, Behavior is cooperative, mv5 pleasant. Neurological: Level of Consciousness is awake, alert, Oriented to person, place, time, Moves all extremities. Speech is normal, Facial symmetry appears normal. Cardiovascular: Rhythm is sinus rhythm No ectopy. Derm: Skin is pink, warm & dry. 04:26 General: Appears in no apparent distress, to be sleeping. Cardiovascular: Rhythm is mv5 sinus rhythm No ectopy. Respiratory: Airway is patent Respiratory effort is even, unlabored, Respiratory pattern is regular, symmetrical. Derm: Skin is pink, warm & dry. 05:31 General: Appears in no apparent distress, to be sleeping. Cardiovascular: Rhythm is mv5 sinus rhythm No ectopy. Respiratory: Airway is patent Respiratory effort is even, unlabored, Respiratory pattern is regular, symmetrical. Derm: Skin is pink, warm & dry. 06:37 General: Appears in no apparent distress, to be sleeping. Cardiovascular: Rhythm is mv5 sinus rhythm No ectopy. Respiratory: Airway is patent Respiratory effort is even, unlabored, Respiratory pattern is regular, symmetrical. Derm: Skin is pink, warm & dry. Vital Signs: 06/24 16:31 Pulse 94 MON; Resp 20; Pulse Ox 70% on R/A; hs1 16:32 BP 157 / 72 (auto/); hs1 16:33 Pulse 88 MON; Pulse Ox 89% ; hs1 16:37 BP 137 / 57 (auto/); hs1 16:37 Pulse 86 MON; Resp 20; Pulse Ox 93% 3 lpm ; hs1 16:51 Pulse 86 MON; Pulse Ox 92% ; hs1 16:52 BP 137 / 60 (auto/); hs1 17:07 BP 143 / 65 (auto/); af2 17:22 Pulse 85; Resp 18; Temp 98.7(O); Pulse Ox 91% ; Weight 116.12 kg (R); Height 5 ft. 6 hs1 in. (167.64 cm) (R); 19:07 BP 142 / 64 (auto/); af2 19:07 Pulse 86 MON; Resp 18 S; Pulse Ox 94% on 2 lpm NC; af2 20:52 BP 142 / 63 (auto/); af2 20:52 Pulse 96 MON; Resp 18 S; Pulse Ox 93% on 3 lpm NC; af2 21:52 BP 135 / 60 (auto/); af2 21:52 Pulse 90 MON; Resp 18 S; Pulse Ox 95% on 3 lpm NC; af2 22:07 BP 141 / 60 (auto/); af2 22:07 Pulse 88 MON; Resp 18 S; Pulse Ox 96% on 3 lpm NC; af2 23:04 BP 144 / 69 (auto/); af2 23:06 Pulse 92 MON; Resp 18 S; Pulse Ox 90% on 3 lpm NC; af2 06/25 00:04 BP 135 / 61 (auto/); af2 00:04 Pulse 82 MON; Resp 18 S; Pulse Ox 93% on 3 lpm NC; af2 02:12 BP 149 / 67 (auto/); mv5 02:13 Pulse 86 MON; Pulse Ox 92% on 3 lpm NC; mv5 03:16 BP 157 / 70 (auto/); mv5 03:16 Pulse 86 MON; Pulse Ox 94% on 3 lpm NC; mv5 03:46 BP 134 / 63 (auto/); mv5 03:46 Pulse 86 MON; Pulse Ox 93% on 3 lpm NC; mv5 04:16 BP 159 / 69 (auto/); mv5 04:17 Pulse 86 MON; Pulse Ox 94% on 3 lpm NC; mv5 04:46 BP 139 / 59 (auto/); mv5 04:46 Pulse 84 MON; Pulse Ox 95% on 3 lpm NC; mv5 05:16 BP 145 / 64 (auto/); mv5 05:16 Pulse 86 MON; Pulse Ox 92% on 3 lpm NC; mv5 05:46 BP 150 / 63 (auto/); mv5 05:46 Pulse 86 MON; Pulse Ox 93% on 3 lpm NC; mv5 06:16 BP 147 / 64 (auto/); mv5 06:16 Pulse 84 MON; Pulse Ox 92% on 3 lpm NC; mv5 06/24 17:22 Body Mass Index 41.32 (116.12 kg, 167.64 cm) hs1 Vitals: 06/24 16:29 Log In Time N/A - ambulance arrival. mb9 ED Course: 16:26 Patient visited by Anaya Shankar. mt4 16:26 Ana Mariee, HETAL is Primary Nurse. mt4 16:26 Malik Daley MD is Private Physician. mt4 16:26 Moiz Coulter is Private Physician. mt4 16:26 Merlin Aceves is Private Physician. mt4 16:26 Patient moved to Waiting mt4 16:26 Patient moved to 15 mt4 16:32 Triage Initiated mb9 16:35 Massimo Baugh MD is Attending Physician. br1 16:47 Patient visited by Massimo Baugh MD. br1 16:54 Patient visited by Marin Aranda. jml1 16:54 EKG done. (by ED staff). Reviewed by Massimo Baugh MD. jml1 17:21 -Influenza A&B Rapid Antigen - Nose Sent. hs1 17:21 BLOOD CULTURES Sent. hs1 17:21 -Blood Culture Sent. hs1 17:21 B-Type Natiuretic Peptide Sent. hs1 17:22 Basic Metabolic Profile Sent. hs1 17:22 CBC with Diff Sent. hs1 17:22 Cardiac Injury Profile Sent. hs1 17:22 Troponin Sent. hs1 17:39 Patient visited by Avelino Shane RN. jmk 17:44 Chest, 1 View Returned. EDMS 18:26 Patient visited by Ana Mariee, HETAL. hs1 18:29 PCR was scanned into [employer] and attached to record. mt4 18:30 PCR was scanned into [employer] and attached to record. mt4 18:44 [facility] [place] into [employer] and attached to record. zo 18:58 Nicki Lambert,RN is Primary Nurse. af2 19:07 Patient visited by Nicki Lambert RN. af2 19:11 Patient visited by Nicki Lambert RN. af2 20:13 Patient visited by Nicki Lambert RN. af2 20:39 Odilon Johnston DO is Hospitalizing Provider. br1 21:08 Patient visited by Nicki Lambert RN. af2 21:08 EKG-ADULT Returned. EDMS 21:09 Patient moved to Radiology sam 21:25 Patient moved to 15 sam 22:31 Patient moved to Admit Hold sls1 23:55 CT ANGIO CHEST Returned. EDMS 06/25 00:20 ARTERIAL BLOOD GAS Sent. bb3 00:32 Patient visited by Nicki Lambert RN. af2 00:45 Primary Nurse role handed off by Nicki Lambert RN sls1 00:46 Primary Nurse role handed off by Ana Mariee RN sls1 02:10 Dominga Holley,RN is Primary Nurse. jmv 02:10 Patient moved to 11 jmv 02:11 Patient moved to Admit Hold nn1 04:27 The patient / caregiver is instructed regarding the plan of care and ED course. mv5 04:27 Inserted saline lock: 18 gauge in left antecubital area and blood collected. The mv5 patient tolerated the procedure well. 08:47 Chest, 1 View Returned. EDMS 08:47 Chest, 2 view PA, Lat Returned. EDMS 11:39 Chest, 2 view PA, Lat Returned. EDMS 15:59 No procedures done that require assistance. aa3 06/26 14:36 T-Sheet-- Draft Copy was scanned into [employer] and attached to record. gb 14:36 ECG/EKG was scanned into [employer] and attached to record. gb 14:36 Trend VS was scanned into [employer] and attached to record. gb 14:37 Radiology Report was scanned into [employer] and attached to record. gb Administered Medications: 06/24 18:33 Drug: Albuterol-Ipratropium 3 ml [ipratropium-albuterol 0.5 mg-3 mg(2.5 mg base)/3 mL cs15 nebulization soln (3 mL)] Route: Inhalation; 20:59 Drug: levofloxacin 750 mg [levofloxacin 750 mg/150 mL in 5 % dextrose intravenous mv5 piggyback] Route: IVPB; Infused Over: 90 mins; Site: left antecubital; 22:30 Follow up: IV Status: Completed infusion mv5 Attachments: 14:36 Trend VS gb RT: 06/24 18:33 Initial Med Neb Given as ordered. Respiratory: Breath sounds with crackles bilaterally. cs15 in left posterior lower lobe and right posterior lower lobe. 06/25 00:19 ABG's drawn from left radial artery pressure held for 5 minutes no bleeding noted bb3 pressure bandage applied specimen sent pt. tolerated well. O2 via nasal cannula \\T\\ 3L/min. Order Results: Lab Order: B-Type Natiuretic Peptide; SPEC'M 06/24/16 17:17 Test: BRAIN NATRIURETIC PEPTIDE; Value: 393; Range: <100; Abnormal: Above high normal; Units: PG/ML; Status: F Lab Order: Basic Metabolic Profile; SPEC'M 06/24/16 17:17 Test: GLUCOSE, FASTING; Value: 124; Range: 83-110; Abnormal: Above high normal; Units: MG/DL; Status: F Test: BLOOD UREA NITROGEN; Value: 19; Range: 7-18; Abnormal: Above high normal; Units: MG/DL; Status: F Test: CREATININE FOR GFR; Value: 1.18; Range: 0.55-1.02; Abnormal: Above high normal; Units: MG/DL; Status: F Test: GLOMERULAR FILTRATION RATE; Value: 48.2; Range: >39; Status: F Test: SODIUM LEVEL; Value: 136; Range: 136-145; Units: MEQ/L; Status: F Test: POTASSIUM SERUM; Value: 5.0; Range: 3.5-5.1; Units: MEQ/L; Status: F Test: CHLORIDE LEVEL; Value: 101; Range: 98-107; Units: MEQ/L; Status: F Test: CARBON DIOXIDE LEVEL; Value: 28; Range: 21-32; Units: MEQ/L; Status: F Test: ANION GAP; Value: 7; Range: 8-16; Abnormal: Below low normal; Units: MEQ/L; Status: F Test: CALCIUM LEVEL; Value: 8.7; Range: 8.8-10.2; Abnormal: Below low normal; Units: MG/DL; Status: F Test Note: ; Units are mL/min/1.73 m2 Chronic Kidney Disease Staging per NKF: Stage I & II GFR >=60 Normal to Mildly Decreased Stage III GFR 30-59 Moderately Decreased Stage IV GFR 15-29 Severely Decreased Stage V GFR <15 Very Little GFR Left ESRD GFR <15 on BACON SKIN LIFTER Lab Order: CBC with Diff; SPEC'M 06/24/16 17:17 Test: WHITE BLOOD COUNT; Value: 7.3; Range: 4.0-10.0; Units: K/mm3; Status: F Test: RED BLOOD COUNT; Value: 3.41; Range: 4.00-5.40; Abnormal: Below low normal; Units: M/mm3; Status: F Test: HEMOGLOBIN; Value: 9.9; Range: 12.0-16.0; Abnormal: Below low normal; Units: g/dl; Status: F Test: HEMATOCRIT; Value: 31.0; Range: 36.0-47.0; Abnormal: Below low normal; Units: %; Status: F Test: MEAN CORPUSCULAR VOLUME; Value: 91.1; Range: 80.0-96.0; Units: fl; Status: F Test: MEAN CORPUSCULAR HEMOGLOBIN; Value: 29.1; Range: 27.0-33.0; Units: pg; Status: F Test: MEAN CORPUSCULAR HGB CONC; Value: 31.9; Range: 32.0-36.5; Abnormal: Below low normal; Units: g/dl; Status: F Test: RED CELL DISTRIBUTION WIDTH; Value: 15.0; Range: 11.5-14.5; Abnormal: Above high normal; Units: %; Status: F Test: PLATELET COUNT, AUTOMATED; Value: 304; Range: 150-450; Units: k/mm3; Status: F Test: NEUTROPHILS %; Value: 76.7; Range: 36.0-66.0; Abnormal: Above high normal; Units: %; Status: F Test: LYMPH %; Value: 10.7; Range: 24.0-44.0; Abnormal: Below low normal; Units: %; Status: F Test: MONO %; Value: 8.6; Range: 0.0-5.0; Abnormal: Above high normal; Units: %; Status: F Test: EOS %; Value: 1.1; Range: 0.0-3.0; Units: %; Status: F Test: BASO %; Value: 0.2; Range: 0.0-1.0; Units: %; Status: F Test: LARGE UNSTAINED CELL %; Value: 2.7; Range: 0.0-4.0; Units: %; Status: F Test: NEUTROPHILS #; Value: 5.6; Range: 1.8-7.7; Units: K/mm3; Status: F Test: LYMPH #; Value: 1.0; Range: 1.5-4.5; Abnormal: Below low normal; Units: K/mm3; Status: F Test: MONO #; Value: 0.6; Range: 0.0-0.8; Units: K/mm3; Status: F Test: EOS #; Value: 0.1; Range: 0.0-0.50; Units: K/mm3; Status: F Test: BASO #; Value: 0.0; Range: 0.0-0.2; Units: K/mm3; Status: F Test: LARGE UNSTAINED CELL #; Value: 0.2; Range: 0.0-0.4; Units: K/mm3; Status: F Lab Order: Cardiac Injury Profile; SPEC'M 06/24/16 17:17 Test: CPK CREATINE PHOSPHOKINASE; Value: 44; Range: 26-192; Units: U/L; Status: F Test: CK-MB VALUE MASS; Value: 2.3; Range: 0.0-3.6; Units: NG/ML; Status: F Test: MB/CK RELATIVE INDEX; Value: 5.22; Range: < OR =4; Abnormal: Above high normal; Status: F Test Note: ; DIAGNOSIS CRITERIA MMB ng/ml Relative Index (RI) NON-AMI < or = 5 N/A WOOD ZONE > 5 < or = 4 AMI > 5 > 4 Lab Order: Troponin; SPEC'M 06/24/16 17:17 Test: TROPONIN I; Value: < 0.02; Range: < 0.10; Units: NG/ML; Status: F Test Note: ; Troponin I Reference Interval for Siemens MiniLuxe LOCI: 99th Percentile= 0.00-0.045 ng/ml Risk Stratification: <= 0.10 ng/ml Decreased Risk for Adverse Clinical Events. 0.10-1.50 ng/ml Increased Risk for Adverse Clinical Events. Evaluation of additional criterion and/or repeat testing in 2-6 hours is suggested to rule out myocardial damage. >= 1.50 ng/ml Indicative of Myocardial Injury. Lab Order: -Influenza A&B Rapid Antigen - Nose; SPEC'M 06/24/16 17:17 Test: INFLUENZA A RAPID SCR by ICA; Value: INFLUENZA A RESULTS NEGATIVE; Status: F Test: INFLUENZA A RAPID SCR by ICA; Value: Comments:; Status: F Test: INFLUENZA B RAPID SCR by ICA; Value: INFLUENZA B RESULTS NEGATIVE; Status: F Test Note: ; The Influenza test is a direct rapid immunoassay for the qualitative detection of Influenza viral antigen. Cell culture (Viral Culture) testing should be considered to confirm NEGATIVE results and to assist in detecting other viruses that can provide similar clinical symptoms. Please contact the lab within 24 hours ([phone]) if confirmatory testing is desired. Lab Order: BASIC METABOLIC PROFILE; [facility] 06/25/16 06:03 Test: GLUCOSE, FASTING; Value: 166; Range: 83-110; Abnormal: Above high normal; Units: MG/DL; Status: F Test: BLOOD UREA NITROGEN; Value: 16; Range: 7-18; Units: MG/DL; Status: F Test: CREATININE FOR GFR; Value: 1.16; Range: 0.55-1.02; Abnormal: Above high normal; Units: MG/DL; Status: F Test: GLOMERULAR FILTRATION RATE; Value: 49.2; Range: >39; Status: F Test: SODIUM LEVEL; Value: 136; Range: 136-145; Units: MEQ/L; Status: F Test: POTASSIUM SERUM; Value: 4.9; Range: 3.5-5.1; Units: MEQ/L; Status: F Test: CHLORIDE LEVEL; Value: 99; Range: 98-107; Units: MEQ/L; Status: F Test: CARBON DIOXIDE LEVEL; Value: 29; Range: 21-32; Units: MEQ/L; Status: F Test: ANION GAP; Value: 8; Range: 8-16; Units: MEQ/L; Status: F Test: CALCIUM LEVEL; Value: 8.3; Range: 8.8-10.2; Abnormal: Below low normal; Units: MG/DL; Status: F Test Note: ; Units are mL/min/1.73 m2 Chronic Kidney Disease Staging per NKF: Stage I & II GFR >=60 Normal to Mildly Decreased Stage III GFR 30-59 Moderately Decreased Stage IV GFR 15-29 Severely Decreased Stage V GFR <15 Very Little GFR Left ESRD GFR <15 on [place] Lab Order: ARTERIAL BLOOD GAS; [facility] 06/25/16 00:18 Test: ABG pH (ARTERIAL); Value: 7.433; Range: 7.350-7.450; Units: UNITS; Status: F Test: ABG PARTIAL PRESSURE CO2; Value: 36.2; Range: 35.0-45.0; Units: mmHg; Status: F Test: ABG PARTIAL PRESSURE O2; Value: 71.2; Range: 75.0-100.0; Abnormal: Below low normal; Units: mmHg; Status: F Test: ABG TOTAL CO2; Value: 24.8; Range: 23.0-31.0; Units: MEQ/L; Status: F Test: ABG HCO3; Value: 23.7; Range: 22.0-26.0; Units: MEQ/L; Status: F Test: ABG BASE EXCESS; Value: -0.3; Range: -2.0-2.0; Status: F Test: ABG STANDARD HCO3; Value: 24.2; Range: 22.0-26.0; Units: MEQ/L; Status: F Test: ABG O2 SATURATION; Value: 94.2; Range: 95.0-99.0; Abnormal: Below low normal; Units: %; Status: F Lab Order: CBC WITH DIFFERENTIAL; [facility] 06/25/16 06:03 Test: WHITE BLOOD COUNT; Value: 6.0; Range: 4.0-10.0; Units: K/mm3; Status: F Test: RED BLOOD COUNT; Value: 3.20; Range: 4.00-5.40; Abnormal: Below low normal; Units: M/mm3; Status: F Test: HEMOGLOBIN; Value: 9.3; Range: 12.0-16.0; Abnormal: Below low normal; Units: g/dl; Status: F Test: HEMATOCRIT; Value: 29.1; Range: 36.0-47.0; Abnormal: Below low normal; Units: %; Status: F Test: MEAN CORPUSCULAR VOLUME; Value: 90.8; Range: 80.0-96.0; Units: fl; Status: F Test: MEAN CORPUSCULAR HEMOGLOBIN; Value: 28.9; Range: 27.0-33.0; Units: pg; Status: F Test: MEAN CORPUSCULAR HGB CONC; Value: 31.9; Range: 32.0-36.5; Abnormal: Below low normal; Units: g/dl; Status: F Test: RED CELL DISTRIBUTION WIDTH; Value: 15.1; Range: 11.5-14.5; Abnormal: Above high normal; Units: %; Status: F Test: PLATELET COUNT, AUTOMATED; Value: 288; Range: 150-450; Units: k/mm3; Status: F Test: NEUTROPHILS %; Value: 75.4; Range: 36.0-66.0; Abnormal: Above high normal; Units: %; Status: F Test: LYMPH %; Value: 11.0; Range: 24.0-44.0; Abnormal: Below low normal; Units: %; Status: F Test: MONO %; Value: 9.7; Range: 0.0-5.0; Abnormal: Above high normal; Units: %; Status: F Test: EOS %; Value: 1.3; Range: 0.0-3.0; Units: %; Status: F Test: BASO %; Value: 0.1; Range: 0.0-1.0; Units: %; Status: F Test: LARGE UNSTAINED CELL %; Value: 2.6; Range: 0.0-4.0; Units: %; Status: F Test: NEUTROPHILS #; Value: 4.6; Range: 1.8-7.7; Units: K/mm3; Status: F Test: LYMPH #; Value: 0.8; Range: 1.5-4.5; Abnormal: Below low normal; Units: K/mm3; Status: F Test: MONO #; Value: 0.6; Range: 0.0-0.8; Units: K/mm3; Status: F Test: EOS #; Value: 0.1; Range: 0.0-0.50; Units: K/mm3; Status: F Test: BASO #; Value: 0.0; Range: 0.0-0.2; Units: K/mm3; Status: F Test: LARGE UNSTAINED CELL #; Value: 0.2; Range: 0.0-0.4; Units: K/mm3; Status: F Lab Order: RESPIRATORY PANEL; SPEC'M 06/25/16 12:33 Test: RESPIRATORY PANEL; Value: RP PANEL RESULT NEGATIVE by PCR; Status: F Test: RESPIRATORY PANEL; Value: Comments:; Status: F Test Note: ; This respiratory PCR panel detects Influenza A H1, H3 and 2009 H1 viruses, Influenza B virus, Respiratory syncytial virus, Human metapneumovirus, Parainfluenza virus 1, 2, 3 and 4, Adenovirus, Rhinovirus/Enterovirus, Coronavirus HKU1, NL63, OC43 and 229E, Bordetella pertussis, Mycoplasma pneumoniae and Chlamydia pneumoniae. Lab Order: Fingerstick Blood Sugar; [facility] 06/25/16 12:07 Test: BEDSIDE GLUCOSE; Value: 197; Range: 83-110; Abnormal: Above high normal; Units: MG/DL; Status: F Lab Order: SPUTUM CULTURE AND GRAM STAIN; [facility] 06/25/16 12:33 Test: GRAM STAIN; Value: GRAM STAIN RESULT; Status: F Test: GRAM STAIN; Value: QUALITY: GOOD; Status: F Test: GRAM STAIN; Value: FEW WBCS; Status: F Test: GRAM STAIN; Value: FEW EPITHELIAL CELLS; Status: F Test: GRAM STAIN; Value: NO ORGANISMS SEEN; Status: F Lab Order: FERRITIN; [facility] 06/24/16 17:17 Test: FERRITIN; Value: 455; Range: 8-252; Abnormal: Above high normal; Units: NG/ML; Status: F Lab Order: TOTAL IRON BINDING CAPACIT; 06/24/16 17:17 Test: IRON (FE); Value: 22; Range: 50-170; Abnormal: Below low normal; Units: UG/DL; Status: F Test: TOTAL IRON BINDING CAPACITY; Value: 142; Range: 250-450; Abnormal: Below low normal; Units: UG/DL; Status: F Test: PERCENT SATURATION; Value: 15.5; Range: 13.2-37.4; Units: %; Status: F Lab Order: RETICULOCYTE COUNT; [facility] 06/25/16 06:03 Test: RETICULOCYTE % [id number]; Value: 2.80; Range: 0.5-1.5; Abnormal: Above high normal; Units: %; Status: F Test: RETICULOCYTE ABSOLUTE [id number]; Value: 95; Range: 17-77; Abnormal: Above high normal; Units: x10(9)/L; Status: F Test: RETIC HEMOGLOBIN CONTENT CHr; Value: 25.6; Range: 24-36; Units: PG; Status: F Radiology Order: Chest, 1 View Test: Chest, 1 View REASON FOR EXAMINATION: Shortness of Breath; CHEST, ONE VIEW:; ; HISTORY: Shortness of breath.; ; COMPARISON: 06/18/2016.; ; There is loss of volume of the right hemithorax. There is elevation of the right; hemidiaphragm. Bilateral infiltrates are present in the lungs, slightly increased; in the left upper lobe. The heart is normal in size. 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: DAMAIN; : 1945 Requested By: Thea Pradhan; Order Number: [id number] Reading MD: Thea Pradhan; Measurements; Intervals [place]; Rate: 84 P: 27; CT: 157 QRS: 46; QRSD: 76 T: 34; QT: 318; QTc: 376; Interpretive Statements; SINUS RHYTHM; LOW QRS VOLTAGE IN PRECORDIAL LEADS; NONSPECIFIC ST T-WAVE ABNORMALITY; PRIOR ATRIAL FIBRILLATION 06/07/16; ; Electronically Signed On 06-24-2016 20:26:57 EST by Thea Pradhan; Radiology Order: CT ANGIO CHEST Test: CT ANGIO CHEST REASON FOR EXAMINATION: SOB, COUGH; ; CT angiogram of the chest; Clinical statement: Chest pain and shortness of breath.; Technique: Multiple axial CT images were obtained from the thoracic inlet through the upper abdomen a; fter a bolus administration of nonionic intravenous contrast. Coronal and sagittal reconstructions we; re also obtained.; Comparison: 06/13/2016.; Findings: The pulmonary arteries are well-opacified with contrast, with no intraluminal filling defec; ts to suggest embolism. The thoracic aorta is unremarkable. Thyroid gland is within normal limits. Th; ere is no thoracic lymphadenopathy. There are extensive parenchymal changes as well as interstitial s; carring throughout the lungs bilaterally. However, there is increased consolidation with air bronchog; cain in the right lower lobe, suspicious for acute pneumonia. The consolidation in the right lung ape; x is grossly increased, as the cavitary lesions have slightly decreased in size since the prior study; . Limited imaging of the upper abdomen is unremarkable. There are no suspicious osseous lesions.; Impression:; 1. No evidence of pulmonary embolism.; 2. Extensive pulmonary fibrosis and chronic scarring throughout the lungs as described.; 3. New increased consolidation in the right lower lobe suspicious for acute pneumonia.; 4. Increased consolidation of the right lung apex could represent pneumonia or fluid filling the prev; iously demonstrated cavitary lesions.; 5. The other CT findings are grossly stable.; ; Radiology Order: Chest, 2 view PA, Lat Test: Chest, 2 view PA, Lat REASON FOR EXAMINATION: SOB; AP SITTING VIEW OF THE CHEST:; ; ; On the present study, there are two views. The heart and great vessels are; unremarkable. In the right upper lung is an area of triangular type density.; ; The lung markings at the bases are very prominent. On the lateral plane, there; is a somewhat homogeneous density probably in the left lower lobe.; ; There are skeletal changes which are age related. Remaining examination is; unremarkable.; ; IMPRESSION:; The findings are consistent with inflammatory process or pneumonia. However,; this patient should have a CT study for further assessment.; ; Edited 06/25/2016 [facility] 0836; MTDD Radiology Order: Chest, 2 view PA, Lat Test: Chest, 2 view PA, Lat REASON FOR EXAMINATION: pneumonia; Clinical: Shortness of breath.; ; Technique: PA and lateral.; ; Comparison: 06/24/2016.; ; Findings:; Diffuse bilateral infiltrates are again appreciated and essentially unchanged.; Pleural effusion cannot be excluded. No pneumothorax. Skeletal structures; intact. No evidence for cardiomegaly.; ; Impression:; Multifocal infiltrates unchanged from prior examination.; ; ; Signed by; Ki Garcia MD 06/25/2016 10:48 A; Outcome: 06/24 20:39 Decision to Hospitalize by Provider. br1 06/25 15:59 Discharge Assessment: Patient awake, alert and oriented x 3. No cognitive and/or aa3 functional deficits noted. Patient verbalized understanding of disposition instructions. patient administered narcotics - no. The following High Risk Discharge criteria are identified: None. Admitted to PCU accompanied by nurse, accompanied by tech, via stretcher, with oxygen, on monitor, with chart. Condition: good. CT Study completed. Admission hand-off: Report called to Keven Trimble RN. Property :Personal belongings accompany Pt. 16:50 Patient left the ED. [facility] Signatures: Dispatcher [employer] EDMS Avelino Shane,RN RN Erica Lowe RN RN estefania Barnes, Stan sam Lyric, Bobbi, Reg Reg gb Parker, Massimo Zhao MD MD br1 Anaya Shankar mt4 Kavon Wilde bb3 Ana Mariee RN RN hs1 Yari Charles, RN RN sls1 Marin Arandal1 Annamarie Musa,RN RN aa3 Roberto Donnelly,RN RN mb9 Nicki Lambert,RN RN af2 Noemi Grossman,RN RN nn1 Ren Jaeger,RT RT cs15 Silvio Henry, BAKERY WORKER [employer] BAKERY WORKER [employer] jmv Dominga Holley,RN RN mv5 Corrections: (The following items were deleted from the chart) 05:33 02:13 Pulse 86bpm; Monitor; Pulse Ox 92%; mv5 mv5 05:33 04:17 Pulse 86bpm; Monitor; Pulse Ox 94%; mv5 mv5 05:33 03:46 Pulse 86bpm; Monitor; Pulse Ox 93%; mv5 mv5 05:33 03:16 Pulse 86bpm; Monitor; Pulse Ox 94%; mv5 mv5 Chart Complete MTDD
[2016-06-27] MEDS: traZODone 50 MG TAB PO SCH (20:07)
[2016-06-27] MEDS: ATORVASTATIN 20 MG TAB PO SCH (20:07)
[2016-06-27] MEDS: ALLOPURINOL 100 MG TAB PO SCH (20:07)
[2016-06-27 20:10] VITALS: BP 150/88
[2016-06-28 00:09] VITALS: BP 143/63
[2016-06-28 03:39] VITALS: BP 131/58
[2016-06-28] MEDS: SLF 3 ML SYR IV SCH (05:39)
[2016-06-28] MEDS: LEVOTHYROXINE 0.05 MG TAB (50 MCG) PO SCH (05:39)
[2016-06-28 05:56] LABS: BASO % 0.1 % (0.0-1.0); EOS % 0.6 % (0.0-3.0); LARGE UNSTAINED CELL # 0.2 K/mm3 (0.0-0.4); LARGE UNSTAINED CELL % 2.2 % (0.0-4.0); LYMPH # 1.2 K/mm3 (1.5-4.5); LYMPH % 13.8 % (24.0-44.0); MEAN CORPUSCULAR HEMOGLOBIN 29.2 pg (27.0-33.0); MEAN CORPUSCULAR HGB CONC 32.4 g/dl (32.0-36.5); MEAN CORPUSCULAR VOLUME 90.1 fl (80.0-96.0); MONO # 0.8 K/mm3 (0.0-0.8); MONO % 9.8 % (0.0-5.0); NEUTROPHILS # 5.7 K/mm3 (1.8-7.7); NEUTROPHILS % 73.5 % (36.0-66.0); PLATELET COUNT, AUTOMATED 383 k/mm3 (150-450); RED CELL DISTRIBUTION WIDTH 15.6 % (11.5-14.5); WHITE BLOOD COUNT 7.7 K/mm3 (4.0-10.0)
[2016-06-28 06:10] LABS: CALCIUM LEVEL 8.4 MG/DL (8.8-10.2); CREATININE FOR GFR 1.06 MG/DL (0.55-1.02); GLOMERULAR FILTRATION RATE 54.6 (>39); POTASSIUM SERUM 4.3 MEQ/L (3.5-5.1)
[2016-06-28] MEDS: ADVAIR DISKUS 500/50 INH PWD INH SCH (07:52)
[2016-06-28] MEDS: TIOTROPIUM INHALER/CAPSULE (SPIRIVA) INH SCH (07:52)
[2016-06-28 08:00] VITALS: BP 141/96
[2016-06-28] MEDS: IPRATROPIUM 0.5MG/ALBUTEROL 2.5MG INH SOL UD 3ML (DUONEB)(J7620) NEB SCH (08:00)
[2016-06-28] MEDS: FERROUS SULFATE 325MG TAB PO SCH (08:11)
[2016-06-28] MEDS: HumaLOG INSULIN (NovoLOG) PER UNIT SC SCH (08:11)
[2016-06-28] MEDS: VENLAFAXINE 37.5 MG TAB PO SCH (08:12)
[2016-06-28] MEDS: FUROSEMIDE 40 MG TAB PO SCH (08:12)
[2016-06-28] MEDS: ASPIRIN 81 MG ENTERIC TAB PO SCH (08:12)
[2016-06-28] MEDS: predniSONE 20 MG TAB PO SCH (08:12)
[2016-06-28] MEDS: LINEZOLID 600MG TABLET (ZYVOX) PO SCH (08:12)
[2016-06-28] MEDS: CALCIUM/VITAMIN D 500 MG TAB PO SCH (08:12)
[2016-06-28] MEDS: DIGOXIN 0.25 MG TAB PO SCH (08:12)
[2016-06-28] MEDS: LORazepam 0.5 MG TAB PO SCH (08:12)
[2016-06-28] MEDS: DULoxetine 30 MG CAP (CYMBALTA) PO SCH (08:13)
[2016-06-28] MEDS: FAMOTIDINE 20 MG TAB PO SCH (08:13)
[2016-06-28] MEDS: SPIRONOLACTONE 12.5MG PER 1/2 TABLET PO SCH (08:13)
[2016-06-28] MEDS: POTASSIUM CHLORIDE 10 MEQ SR TABLET PO SCH (08:13)
[2016-06-28 08:14] VITALS: BP 141/96
[2016-06-28] MEDS: PANTOPRAZOLE 40MG TAB (PROTONIX) PO SCH (08:14)
[2016-06-28] MEDS: LISINOPRIL 10 MG TAB PO SCH (08:14)
[2016-06-28] MEDS: MAGNESIUM OXIDE 400 MG TAB (MAG-OX) PO SCH (08:14)
[2016-06-28] MEDS ORDERED: PRED10TA PO (10:35)
[2016-06-28] MEDS ORDERED: ALDA25TA2 PO (10:35)
[2016-06-28 12:00] VITALS: BP 136/85
[2016-06-28] MEDS ORDERED: FUROSEMIDE 20 MG TAB PO SCH (17:00)
--- NOTE | 2016-06-28 17:41 | DSES ---
DATE OF ADMISSION: 06/25/2016 DATE OF DISCHARGE: 06/28/2016 DISCHARGE DIAGNOSIS: Decompensated systolic heart failure. SECONDARY DIAGNOSES: 1. Decompensated chronic obstructive pulmonary disease. 2. Healthcare-associated pneumonia. HOSPITAL COURSE: The patient is a 70-year-old female who underwent lobectomy approximately a week and a half ago for lung cancer, who since the procedure has noted progressively worsening dyspnea with exertion and rest. She has a history of chronic obstructive pulmonary disease (COPD) and a chronic right lower lobe infiltrate. She presented to the emergency room with dyspnea. She was seen and evaluated by Dr. Alexander, who felt that this may have been related to decompensated congestive heart failure. Patient was admitted to the progressive care unit. She did have an echocardiogram, which revealed an ejection fraction (EF) of 35% with normal diastolic function for age. The patient was diuresed. She was treated with intravenous (IV) Solu-Medrol and nebulizer treatments for COPD. She was also treated with broad-spectrum antibiotics for healthcare-associated pneumonia. Over the next 72 hours, the patient's clinical status greatly improved. The patient previously had no oxygen requirement but did have an underlying history of COPD. At this time, she saturates well on room air at rest but requires 2 liters with ambulation, as documented by nursing staff. I feel that the patient has improved significantly, as has the patient. Subjectively she feels much better. I suspect that this is her new baseline following lobectomy. Dr. Alexander agrees as well. SUBJECTIVE: Today the patient reports she is feeling well. Has no complaints. She is happy with her progress. She denies any complaints. OBJECTIVE: VITAL SIGNS: Temperature 97.1, pulse 79, respiratory rate 18, blood pressure (BP) 141/96, oxygen saturation 90% on room air when I am examining her. GENERAL: She is a morbidly obese elderly female sitting in a recliner. She is in no distress. HEENT: Cranial nerves II-XII are grossly intact. She has moist mucous membranes. No elevation in jugular venous pulse (JVP). CARDIOVASCULAR: S1, S2, regular. RESPIRATORY: Good air movement. Prolonged expiratory phase. No audible wheeze. ABDOMEN: Grossly obese. EXTREMITIES: No clubbing, cyanosis, or appreciable edema at this time. LABORATORY STUDIES: WBC 7.7, hemoglobin 9.6, stable, hematocrit 29.8, platelet count 383. Chemistry panel: Sodium 133, potassium 4.3, chloride 95, bicarbonate 31, BUN 19, creatinine 1.0. Microbiology: All negative. Influenza swab is negative. Blood cultures negative. PCR viral panel is negative. Sputum cultures are negative. A methicillin-resistant Staphylococcus aureus (MRSA) screen is pending. IMAGING: The patient had a CT angiography at the time of her admission, which revealed no pulmonary embolism (PE), extensive pulmonary fibrosis, and chronic scarring throughout the lungs. New increased consolidation in the right lower lobe suspicious for acute pneumonia. ASSESSMENT AND PLAN: This is a 70-year-old female with acute on chronic dyspnea. 1. Acute on chronic dyspnea, likely multifactorial in nature, the predominant factor I believe to be decompensated systolic heart failure. The patient has been diuresed quite aggressively at this time. She appears close to euvolemia. We will return her back to her home Lasix dose. She has been advised to check her weights daily. She is to have a fluid-restricted diet, 2 gram sodium as well. She is to followup with Dr. Esposito within the next 2 weeks regarding her echocardiogram findings and her depressed ejection fraction. It is unclear if this is new or not. She has been started on Aldactone. She is on aspirin and angiotensin-converting enzyme (MICHELLE) inhibitor. We did not start a beta rajwinder, as she was acutely decompensated and give her pulmonary symptoms at the time of admission. 2. Healthcare-associated pneumonia. Today is day 4 of 7 broad-spectrum antibiotics. She has been on vancomycin and meropenem. Prior authorization has been obtained. She will be discharged on linezolid to complete a 7-day course. My suspicion for healthcare-associated pneumonia is slightly lower. 3. Decompensated chronic obstructive pulmonary disease (COPD). The patient has been on intravenous (IV) Solu-Medrol, and she has since been converted to by mouth prednisone. We will discharge her home with a prednisone taper. She is to continue her home nebulizer treatments and breathing treatments, as she has in the past. She is to followup with Dr. Daley as soon as she can get in to see him in his clinic regarding her improving dyspnea, to see if she is best optimized. She is also being discharged with new home oxygen with activity only. 4. Obstructive sleep apnea. She uses continuous positive airway pressure (CPAP) at night. 5. Vitamin D deficiency. She is on supplementation. 6. Type 2 diabetes. She is on sliding-scale insulin. She is on a consistent-carbohydrate diet. 7. Atrial fibrillation. She is on digoxin. She is not on anticoagulation given her propensity of falls. She walks with a walker at her baseline. 8. Anemia. She has iron deficiency. She is on ferrous sulfate. Would recommend followup with her outpatient provider for outpatient colonoscopy or an occult stool for testing for blood. 9. Mood disorder. She is on Cymbalta and Effexor. 10. Gastroesophageal reflux disease. She is on Prevacid. 11. Hypertension. She is on lisinopril, and her blood pressure is controlled. 12. Hypothyroidism. She is on Synthroid. 13. Anxiety. She is on lorazepam. 14. Insomnia. She is on trazodone. 15. Gout. She is on allopurinol. 16. Dyslipidemia. She is on Lipitor. 17. Coronary artery disease. She is on an aspirin and statin but not on a beta rajwinder given her pulmonary disease, and I would not start her on it given her acutely decompensated heart failure. 18. Deep vein thrombosis (DVT) prophylaxis. Sequentials and thromboembolic deterrents (TEDs). DISPOSITION: The patient is being discharged home to the care of her family. She is at her functional baseline. Physical therapy (PT) has cleared her. She is to followup with her primary care physician (PCP) in 7 days, followup with Dr. Alexander in 1 week, followup with pulmonary as soon as possible, followup with Dr. Esposito within 2 weeks. Her activity is as prior to admission with oxygen, which is new. Her diet is a 2 gram sodium, 1700 mL fluid restriction consistent-carbohydrate diet. She is to check her weights daily and if greater than 2-pound increase in 24 hours, she is to call Dr. Esposito' office. She is to return to the emergency room (ER) if her symptoms worsen. MEDICATIONS AT THE TIME OF DISCHARGE: - linezolid 600 mg by mouth twice a day for 4 days - prednisone 10 mg tablet, four tablets for 4 days, three tablets for 4 days, two tablets for 4 days, one tablet for 4 days, then stop - Aldactone 12.5 mg daily - ProAir HFA 108 mcg two puffs four times a day as needed for shortness of breath - allopurinol 100 mg at bedtime - aspirin 81 mg daily - Lipitor 40 mg at bedtime - calcium with vitamin D 500/400 by mouth at noon - digoxin 0.25 mg daily - Cymbalta 30 mg daily - Nexium 40 mg daily - ferrous sulfate 325 mg daily - fluticasone two puffs nasally twice a day - Lasix 40 mg in the morning, 20 mg in the afternoon - Lantus 90 units subcutaneously every morning, 85 units at bedtime, as well as NovoLog sliding scale - Xyzal 5 mg daily - Synthroid 50 mcg daily - lisinopril 10 mg daily - Ativan 0.5 mg twice a day - magnesium 800 mg three times a day - metolazone 2.5 mg once a week on - oxycodone/acetaminophen 5/325 one tablet four times a day as needed for pain - potassium chloride 30 mEq three times a day - Zantac one tablet, 150 mg, daily - Advair Diskus 500/50 one puff inhaled twice a day - Tiotropium - Spiriva HandiHaler 18 mcg inhaled daily - tramadol 50 mg four times a day as needed for pain - trazodone 150 mg at bedtime - venlafaxine 75 mg twice a day - vitamin D 50,000 units weekly on Mondays Greater than 45 minutes spent organizing disposition.
[2016-07-01] MEDS ORDERED: VITAMIN D 50,000 UNITS CAPSULE (ERGOCALCIFEROL 1.25MG) PO SCH (09:00)
== END 2016-06-28 13:33 | disposition home or self-care (01) | DRG 291 ==
LOC: M ED 16:25 → M ED INP 06-25 02:54 → OBSVTOIN 06-25 02:54 → M PCU 06-25 16:57
PROVIDERS: ADMIT Hospitalist; ATTEND Internal Medicine
DX: I50.33 Acute on chronic diastolic (congestive) heart failure (principal); J18.9 Pneumonia, unspecified organism; J44.1 Chronic obstructive pulmonary disease with (acute) exacerbation; C34.11 Malignant neoplasm of upper lobe, right bronchus or lung; Z68.41 Body mass index [BMI] 40.0-44.9, adult; E11.9 Type 2 diabetes mellitus without complications; E66.01 Morbid (severe) obesity due to excess calories; I10 Essential (primary) hypertension; D50.9 Iron deficiency anemia, unspecified; G47.33 Obstructive sleep apnea (adult) (pediatric); I48.91 Unspecified atrial fibrillation; K21.9 Gastro-esophageal reflux disease without esophagitis; E03.9 Hypothyroidism, unspecified; F41.9 Anxiety disorder, unspecified; F39 Unspecified mood [affective] disorder; M10.9 Gout, unspecified; E78.5 Hyperlipidemia, unspecified; I25.10 Atherosclerotic heart disease of native coronary artery without angina pectoris; Z79.82 Long term (current) use of aspirin; Z79.899 Other long term (current) drug therapy; Z79.01 Long term (current) use of anticoagulants; Z79.4 Long term (current) use of insulin; Z87.891 Personal history of nicotine dependence; M54.5 Low back pain; E87.5 Hyperkalemia

== ENCOUNTER → 2016-07-09 | Outpatient (CLI) | payer MEDICARE, MEDICAID ==
[~2016-07-09] MED LIST changes: +ALDA25TA2 PO; +DRIS50002 PO; +FERR325T PO; +PRED10TA PO; +ZYVO100T PO
--- NOTE | 2016-07-09 12:38 | REP ---
CHEST, TWO VIEWS: HISTORY: Pneumonia. COMPARISON: 07/01/2016. There is elevation of the right hemidiaphragm. An increase in interstitial markings is present in the lungs consistent with chronic interstitial fibrosis. Patchy density is present in the right upper lobe consistent with atelectasis or infiltrate unchanged compared to the previous study. The heart is normal in size. The pulmonary vasculature is normal in appearance. The bony structure is intact. IMPRESSION: 1. Chronic interstitial fibrosis. 2. Right upper lobe atelectasis or infiltrate unchanged compared to the previous study. Signed by Bassam Cook MD 07/09/2016 12:43 P
== END ==
LOC: M ADAMS 11:29
PROVIDERS: ATTEND Family Medicine
DX: J84.10 Pulmonary fibrosis, unspecified (principal); J98.11 Atelectasis; J18.9 Pneumonia, unspecified organism

== ENCOUNTER 2016-07-11 13:30 | Inpatient (IN) | payer MEDICARE, MEDICAID ==
[~2016-07-11] VITALS: Ht 167.6 cm; Wt 104.1 kg
[2016-07-11] MEDS ORDERED: MORPHINE 2 MG/ML 1ML SYRINGE IV PRN (15:30)
[2016-07-11] MEDS ORDERED: ASPIRIN 81 MG CHEW TABLET PO ONE (15:30)
[2016-07-11] MEDS ORDERED: methylPREDNISolone INJ 125 MG/2 ML VIAL (J2930) IV ONE (15:30)
[2016-07-11] MEDS ORDERED: ONDANSETRON 4MG/2ML VIAL (J2405) IV ONE (15:30)
[2016-07-11] MEDS ORDERED: IPRATROPIUM 0.02% SOLN 0.5MG/2.5 ML NEB INH ONE (15:30)
[2016-07-11] MEDS ORDERED: ALBUTEROL SULFATE 2.5 MG/0.5 ML INH NEB SOLN INH ONE ×2 (15:30)
[2016-07-11 15:45] LABS: BASO % 0.2 % (0.0-1.0); EOS # 0.2 K/mm3 (0.0-0.50); LARGE UNSTAINED CELL # 0.1 K/mm3 (0.0-0.4); LARGE UNSTAINED CELL % 0.7 % (0.0-4.0); LYMPH # 1.3 K/mm3 (1.5-4.5); LYMPH % 6.3 % (24.0-44.0); MEAN CORPUSCULAR HEMOGLOBIN 29.4 pg (27.0-33.0); MEAN CORPUSCULAR HGB CONC 33.3 g/dl (32.0-36.5); MEAN CORPUSCULAR VOLUME 88.2 fl (80.0-96.0); MONO % 5.1 % (0.0-5.0); NEUTROPHILS # 16.3 K/mm3 (1.8-7.7); NEUTROPHILS % 86.6 % (36.0-66.0); PLATELET COUNT, AUTOMATED 245 k/mm3 (150-450); WHITE BLOOD COUNT 18.8 K/mm3 (4.0-10.0)
[2016-07-11 15:58] LABS: ABG BASE EXCESS 3.2 (-2.0-2.0); ABG PARTIAL PRESSURE CO2 43.9 mmHg (35.0-45.0); ABG PARTIAL PRESSURE O2 88.9 mmHg (75.0-100.0); ABG STANDARD HCO3 27.3 MEQ/L (22.0-26.0); ABG TOTAL CO2 29.4 MEQ/L (23.0-31.0); ABG pH (ARTERIAL) 7.423 UNITS (7.350-7.450)
[2016-07-11 16:08] LABS: ANION GAP 9 MEQ/L (8-16); BLOOD UREA NITROGEN 38 MG/DL (7-18); CALCIUM LEVEL 8.5 MG/DL (8.8-10.2); CARBON DIOXIDE LEVEL 30 MEQ/L (21-32); CHLORIDE LEVEL 99 MEQ/L (98-107); GLOMERULAR FILTRATION RATE 47.3 (>39); GLUCOSE, FASTING 303 MG/DL (83-110); SODIUM LEVEL 138 MEQ/L (136-145)
--- NOTE | 2016-07-11 16:11 | REP ---
Chest x-ray: Two views. History: Chest pain. Comparison chest x-ray July 01, 2016. Findings: There are patchy areas of bibasilar consolidation again noted similar to prior studies. There is some improvement in the right base. The left base opacities are essentially unchanged from most recent prior study of July 09, 2016. They appear more prominent than on July 01, 2016. There are post thoracotomy changes on the right with elevation of the right hemidiaphragm and right mediastinal and perihilar clips and sutures. There is some patchy consolidation in the right upper lobe as well. Impression: Patchy bilateral infiltrates essentially unchanged from the most recent prior study of July 09, 2016. Post thoracotomy changes on the right. Signed by Haroldo Stokes MD 07/11/2016 04:27 P
[2016-07-11 16:14] LABS: POTASSIUM SERUM 5.6 MEQ/L (3.5-5.1)
[2016-07-11] MEDS ORDERED: LevoFLOXacin IV 750 MG in APPROPRIATE DILUENT 1 EA IV ONE (16:30)
[2016-07-11] MEDS ORDERED: PRED10TA PO (19:34)
[2016-07-11] MEDS ORDERED: FLUTISP (19:34)
[2016-07-11] MEDS ORDERED: NITR4TASL SL (19:44)
[2016-07-11] MEDS ORDERED: SPIR25TA2 PO (19:44)
[2016-07-11] MEDS ORDERED: IPRATROPIUM 0.02% SOLN 0.5MG/2.5 ML NEB INH PRN (20:00)
[2016-07-11] MEDS ORDERED: LEVALBUTEROL 1.25 MG/0.5 ML CONCENTRATE NEB INH PRN (20:00)
[2016-07-11] MEDS: LEVALBUTEROL 1.25 MG/0.5 ML CONCENTRATE NEB INH SCH (20:00)
[2016-07-11] MEDS ORDERED: ALBUTEROL 90 MCG/ACT 8GM HFA INHALER INH PRN (20:00)
[2016-07-11] MEDS: IPRATROPIUM 0.02% SOLN 0.5MG/2.5 ML NEB INH SCH (20:00)
[2016-07-11] MEDS ORDERED: FLUTICASONE PROP 0.05% NASAL SPRAY 16 GM (FLONASE) PRN (20:00)
[2016-07-11] MEDS ORDERED: NITROGLYCERIN 0.4 MG SUBL TABLET SL PRN (20:00)
[2016-07-11] MEDS ORDERED: traMADol 50 MG TAB PO PRN (20:00)
[2016-07-11] MEDS ORDERED: GLUCAGON FOR INJ 1 MG VIAL (J1610) SC PRN (20:30)
[2016-07-11] MEDS ORDERED: DEXTROSE 50% 50 ML SYRINGE IV PRN (20:30)
[2016-07-11] MEDS ORDERED: GLUCOSE 4 GM CHEW TABLET PO PRN (20:30)
--- NOTE | 2016-07-11 20:43 | ECGEPIP ---
Stationary ECG Study [facility] - ED Test Date: 2016-07-11 Pat Name: PINEDA VALDERRAMA Department: Room: - Gender: F Veterinarian: shivani : 1945 Requested By: Liz Enciso Order Number: [id number] Reading MD: Liz Enciso Measurements Intervals [place] Rate: 78 P: 36 OR: 161 QRS: 54 QRSD: 82 T: 28 QT: 298 QTc: 341 Interpretive Statements SINUS RHYTHM NONSPECIFIC ST & T-WAVE ABNORMALITY IN INFEROLATERAL LEADS 06/24/16 - RATE DECREASED Electronically Signed On 07-11-2016 20:43:12 EST by Liz Enciso
[2016-07-11] MEDS: CEFEPIME HCL 1 GM in D5W MINI-BAG PLUS 50 ML IV SCH (21:00)
[2016-07-11] MEDS ORDERED: HumaLOG INSULIN (NovoLOG) PER UNIT SC SCH (21:00)
[2016-07-11 21:10] VITALS: BP 145/70
--- NOTE | 2016-07-11 21:22 | HPE ---
DATE OF ADMISSION: 07/11/2016 PRIMARY CARE PHYSICIAN: Dr. Aceves DIVER PUMPER: Dr. Daley RESISTANCE WELDING MACHINE OPERATOR: Dr. Esposito THORACIC SURGEON: Dr. Alexander CHIEF COMPLAINT: Dyspnea. HISTORY OF THE PRESENT ILLNESS: The patient is a 70-year-old female who actually was recently admitted in June. At that time, she did have a lobectomy for lung cancer by Dr. Alexander. She did have chronic obstructive pulmonary disease (COPD) but no oxygen (O2) requirement prior to this procedure. Following the procedure, she was started on two liters of oxygen. She was subsequently admitted 06/24/2016 through 06/28/2016 and was actually under my care at that time when I discharged her. At the time, she was admitted with decompensated systolic congestive heart failure. She has a known ejection fraction (EF) of approximately 35%. She was diuresed at the time with a good improvement in her respiratory symptoms. She was also empirically treated for healthcare-associated pneumonia at that time; however, she has had a fairly chronic right lower lobe infiltrate. Since her discharge on 06/28/2016, the patient tells me that she has been doing quite well, that she has not had any further episodes of dyspnea, that she has been at her baseline and she is up and ambulating well with her walker. She has been checking her daily weights every day and it has not increased. She has been compliant with all of her medications and has been adherent with her dietary restrictions. She tells me, however, that over the last two days, she has noted progressively worsening shortness of breath even at rest, as well as increased coughing and increased sputum production. She denies any sick contacts. At the present time, to me she denies any chest pressure, lightheadedness, dizziness, nausea, vomiting, fevers or chills. Apparently earlier with the emergency room provider, she did complain of some intermittent substernal chest pressure. At the present time, she denies any of this to me, however. She tells me she does not feel significantly better than when she arrived at the [facility] at this time. PAST MEDICAL HISTORY: Coronary artery disease. Systolic congestive heart failure, ejection fraction 35%. Gout. Hypertension. Type 2 diabetes, insulin dependent. Dyslipidemia. Gastroesophageal reflux disease. Lung cancer, status post recent lobectomy last month. Dyslipidemia. Mood disorder. Anxiety. Depression. Insomnia. COPD with baseline two liters of oxygen. Obstructive sleep apnea, compliant with continuous positive airway pressure (CPAP). Vitamin D deficiency. Atrial fibrillation. Hypothyroidism. Iron deficiency anemia. HOME MEDICATIONS: - calcium, vitamin D 500-400 units by mouth daily - Lispro sliding scale - lisinopril 10 mg daily - metolazone 2.5 mg once a week - potassium chloride 30 mEq three times a day - aldactone 25 mg daily - Spiriva 18 mcg inhaled daily - vitamin 50,000 units once a week - Xyzal 5 mg daily - magnesium 800 mg three times a day - ProAir HFA 108 mcg two puffs four times a day as needed for shortness of breath - allopurinol 100 mg daily - aspirin 81 mg daily - Lipitor 40 mg nightly - Digoxin 0.25 mg daily - Cymbalta 30 mg daily - Nexium 40 mg daily - ferrous sulfate 325 mg daily - fluticasone 50 mcg per day to nares as needed for allergies - Lasix 20 mg daily, 40 mg every morning - Lantus 50 units nightly, 55 units every morning - Synthroid 50 mcg daily - lorazepam 0.5 mg twice a day - Nitrostat 0.4 mg sublingually as needed for chest pain - ranitidine 150 mg daily - Advair 500-50 one puff inhaled twice a day - tramadol 50 mg four times a day - trazodone 150 mg nightly - venlafaxine 75 mg by mouth twice a day PAST SURGICAL HISTORY: Cholecystectomy. Hysterectomy. Appendectomy. Disc surgery. Right upper lobe lobectomy. SOCIAL HISTORY: The patient recently quit smoking after a 60 pack-year history. She denies alcohol or illicit drug use. She lives independently, but does have close contact with her family. They are normally very much involved with her care and previously have advised her to leave the hospital against medical advice. At this time, she informs me that she does not care what they say and is willing to stay here and continue treatment. She has a DO NOT RESUSCITATE (DNR). ALLERGIES: PENICILLIN. REVIEW OF SYSTEMS: Negative other than in the history of the present illness (HPI). FAMILY HISTORY: Noncontributory. PHYSICAL EXAMINATION: VITAL SIGNS: Temperature 97.7, pulse 74, respiratory rate 18, blood pressure 123/58, oxygen saturation 95% on 4 liters nasal cannula. GENERAL: She is a very pleasant, obese, elderly female sitting on the edge of her stretcher. She is mildly tachypneic, but does not appear to be in any acute distress. HEENT: Cranial nerves II-XII are grossly intact. She has moist mucous membranes. I do not appreciate any elevation in her central venous pressure. She speaks in complete sentences. She does not appear breathless; however, she does have mild accessory muscle use. CARDIOVASCULAR EXAM: S1, S2 regular. RESPIRATORY EXAM: She has a prolonged expiratory phase with mild diffuse end-expiratory wheeze throughout all lung jacome. ABDOMINAL EXAM: Grossly obese. EXTREMITIES: No clubbing, cyanosis or appreciable edema. LABORATORY STUDIES: WBC 18.8, hemoglobin 11.2, hematocrit 33.7, platelet count is 245. Chemistry panel: Sodium 138, potassium 5.6, chloride 99, bicarbonate 30, BUN 38, creatinine 1.2, baseline approximately 1.0, fasting glucose 303, lactic acid 1.6. She has multiple sets of troponin, which are negative. She has a BNP of 107 , which is actually lower than her previous admission. She has an ABG with a pH of 7.4, pCO2 of 43.9, pO2 of 88.9. Microbiology: Blood cultures have been drawn and are pending. The patient had a chest x-ray, which reveals patchy bilateral infiltrates, essentially unchanged from the most recent prior study on 07/09/2016. Post thoracotomy changes on the right. ASSESSMENT AND PLAN: This is a 70-year-old female who returned to [facility] ([facility]) with dyspnea. PROBLEMS: 1. Dyspnea. At the present time, this appears to be most likely decompensated chronic obstructive pulmonary disease exacerbation (COPD) given her history of increased cough, increased sputum production and increased dyspnea in the setting of known COPD. Will check a respiratory PCR panel. I will treat her with intravenous (IV) Solu-Medrol and nebulizer treatments and continue her home inhalers. I have lower suspicion for healthcare-associated pneumonia; however, for the time being, I will treat her with empiric vancomycin and cefepime. Spectrum can be narrowed as appropriate. We will check a methicillin-resistant Staphylococcus aureus (MRSA) screen. During her last stay, she was also dyspneic ; however, at that time, her physical exam was more suggestive of hypervolemia, and she did improve with diuresis. At this time, I will not adjust her diuresis as I do not feel that she is decompensated with her heart failure, and she actually looks better than she did during her last hospitalization. 2. Hyperkalemia. The patient is on potassium supplementation. She was also on an angiotensin-converting enzyme (MICHELLE) inhibitor and aldactone. We will hold these medications for the time being, and we will recheck a BMP stat to ensure that it is not rising. We will continue with her diuretics. 3. Congestive heart failure. She is on aspirin, Lasix. We are holding her aldactone and lisinopril. 4. Coronary artery disease. She is on aspirin and a statin. She is not on a beta rajwinder, likely secondary to her poor baseline respiratory status. The patient is on as needed nitro. 5. Type 2 diabetes. Will continue with her home Lantus. Consistent carbohydrate, 2-gram sodium diet. We will place her on sliding scale as well as hypoglycemic protocol. 6. Lung cancer, status post recent lobectomy. Likely a determining factor to worsening in her baseline respiratory status. 7. Anxiety, depression. The patient is on Cymbalta, Ativan, venlafaxine. 8. Insomnia. The patient is on trazodone. 9. Chronic low back pain. The patient is on tramadol. 10. Iron deficiency anemia. The patient is on iron supplementation. 11. Gout. The patient is on allopurinol. 12. Hypothyroidism 13. Gastroesophageal reflux disease. On Pepcid as well as Nexium and ranitidine. 14. Atrial fibrillation. She is not anticoagulated secondary to propensity for falls. She is rate controlled with digoxin. 15. Obstructive sleep apnea. She is compliant with CPAP. It is okay for her to use her home CPAP. 16. Vitamin D deficiency. She is on supplementation. 17. Deep vein thrombosis (DVT) prophylaxis. The patient will be on heparin. DISPOSITION: The patient is admitted to the progressive care unit. Dr. Ramirez's service will follow the patient in the morning. [facility] HOSPITALRobby
[2016-07-11] MEDS: LEVEMIR (INSULIN DETEMIR) 1 UNITS/0.01ML SC SCH (21:52)
[2016-07-11] MEDS ORDERED: VANCOMYCIN HCL 1,000 MG, VIAL MATE ADAPTER 1 EACH in D5W 250 ML IV SCH (22:00)
[2016-07-11 22:51] VITALS: BP 120/60
[2016-07-11] MEDS: methylPREDNISolone INJ 125 MG/2 ML VIAL (J2930) IV SCH (22:55)
[2016-07-11] MEDS: HEPARIN SOD (PORCINE) 5000 UNITS/ML VIAL SC SCH (22:56)
[2016-07-11] MEDS: LORazepam 0.5 MG TAB PO SCH (22:57)
[2016-07-11] MEDS: ATORVASTATIN 20 MG TAB PO SCH (22:57)
[2016-07-11] MEDS: traZODone 50 MG TAB PO SCH (22:57)
[2016-07-11] MEDS: ALLOPURINOL 100 MG TAB PO SCH (22:57)
--- NOTE | 2016-07-11 23:07 | PHACANCOPD ---
PHARMACY VANCOMYCIN DOSING Pt Demographics Demographics Patient Age:70 , Weight: , Gender: female Adjusted Body Weight Date: 07/11/16, Adjusted Body Weight: [86.4] Kg Vancomycin Vancomycin indication: HCAP Vancomycin Target Ranges: 10-20 mcg/ml Vancomycin Load Y/N: No Load Dose Date Time Vancomycin Load Dose: Date: Time: Vancomycin Dose Date: 07/11/16. Current Vancomycin Dose: [750MG Q12H] Intermittent Dosing?: No Labs Labs Laboratory Tests 07/11/16 15:36 Calcium Level 8.5 L, Total Creatine Kinase 29, Red Blood Count 3.81 L, Mean Corpuscular Volume 88.2, Mean Corpuscular Hemoglobin 29.4, Mean Corpuscular Hemoglobin Concent 33.3, Red Cell Distribution Width 17.0 H, Neutrophils (%) ( Auto) 86.6 H, Lymphocytes (%) (Auto) 6.3 L, Monocytes (%) (Auto) 5.1 H, Eosinophils (%) (Auto) 1.0, Basophils (%) (Auto) 0.2, Neutrophils # (Auto) 16.3 H, Lymphocytes # (Auto) 1.3 L, Monocytes # (Auto) 1.0 H, Eosinophils # (Auto) 0.2, Basophils # (Auto) 0.0 Micro Microbiology 07/11/16 Blood Culture, Received Pending 07/11/16 Blood Culture, Received Pending Creatinine Clearance Date:07/11/16. Creatinine Clearance: [53.9]CALCULATED. Pending Labs TROUGH ORDERED FOR 07/12@1700 Assessment and Plan Maintaining Current Dose?: Yes Reason for dose change: No Dose Change Pharmacist Note Pharmacist Note Date: 07/11/16. Pharmacist note:POSSIBLE HCAP 70 YOF scr=1.2,CALCULATED crcl= 53.9,started on cefepime 1 G Q12H and Vancomycin per consult:Vancomycin 1 GM@ 2200 07/11,then 750mg IV Q12H@0600-trough ordered for 07/12@1700: will continue to monitor SCR and levels VALDEZ MCCORMICK PHARM[facility] Jul 11, 2016 23:07
[2016-07-11] MEDS: ADVAIR DISKUS 500/50 INH PWD INH SCH (23:39)
[2016-07-11] MEDS: VENLAFAXINE 37.5 MG TAB PO SCH (23:39)
[2016-07-12] MEDS ORDERED: HumaLOG INSULIN (NovoLOG) PER UNIT As Ordered ONE (03:08)
[2016-07-12] MEDS ORDERED: HumaLOG INSULIN (NovoLOG) PER UNIT SC ONE ×2 (03:45→07:45)
[2016-07-12] MEDS: methylPREDNISolone INJ 125 MG/2 ML VIAL (J2930) IV SCH (04:13)
[2016-07-12 05:39] LABS: MEAN CORPUSCULAR HGB CONC 32.6 g/dl (32.0-36.5); MEAN CORPUSCULAR VOLUME 92.1 fl (80.0-96.0); RED CELL DISTRIBUTION WIDTH 17.1 % (11.5-14.5); WHITE BLOOD COUNT 27.2 K/mm3 (4.0-10.0)
[2016-07-12 05:49] VITALS: BP 129/63
[2016-07-12 05:57] LABS: CALCIUM LEVEL 8.8 MG/DL (8.8-10.2); CREATININE FOR GFR 2.16 MG/DL (0.55-1.02)
[2016-07-12] MEDS ORDERED: PANTOPRAZOLE 40MG TAB (PROTONIX) PO ONE (06:00)
[2016-07-12] MEDS: LEVOTHYROXINE 0.05 MG TAB (50 MCG) PO SCH (06:39)
[2016-07-12] MEDS: VANCOMYCIN HCL 750 MG, VIAL MATE ADAPTER 1 EACH in D5W 250 ML IV SCH ×2 (06:39→18:45)
[2016-07-12 06:41] LABS: POTASSIUM SERUM 6.7 MEQ/L (3.5-5.1)
[2016-07-12] MEDS: ADVAIR DISKUS 500/50 INH PWD INH SCH ×2 (07:27→19:57)
[2016-07-12] MEDS: LEVALBUTEROL 1.25 MG/0.5 ML CONCENTRATE NEB INH SCH ×4 (07:27→19:58)
[2016-07-12] MEDS: IPRATROPIUM 0.02% SOLN 0.5MG/2.5 ML NEB INH SCH ×4 (07:28→19:58)
[2016-07-12] MEDS ORDERED: HumaLOG INSULIN (NovoLOG) PER UNIT SC SCH ×2 (07:30→21:00)
[2016-07-12] MEDS: HumaLOG INSULIN (NovoLOG) PER UNIT SC SCH ×5 (07:30→23:00)
[2016-07-12] MEDS ORDERED: NS 500 ML in APPROPRIATE DILUENT 1 EA IV ONE (07:45)
[2016-07-12 08:00] VITALS: BP 149/61
[2016-07-12] MEDS: HEPARIN SOD (PORCINE) 5000 UNITS/ML VIAL SC SCH ×2 (08:29→21:54)
[2016-07-12] MEDS: LEVEMIR (INSULIN DETEMIR) 1 UNITS/0.01ML SC SCH ×2 (08:31→21:55)
[2016-07-12] MEDS: FERROUS SULFATE 325MG TAB PO SCH (08:32)
[2016-07-12] MEDS: ASPIRIN 81 MG ENTERIC TAB PO SCH (08:32)
[2016-07-12] MEDS: PANTOPRAZOLE 40MG TAB (PROTONIX) PO SCH (08:32)
[2016-07-12] MEDS: VENLAFAXINE 37.5 MG TAB PO SCH ×2 (08:32→21:53)
[2016-07-12] MEDS: LORazepam 0.5 MG TAB PO SCH ×2 (08:32→21:53)
[2016-07-12] MEDS: DULoxetine 30 MG CAP (CYMBALTA) PO SCH (08:32)
[2016-07-12] MEDS: FAMOTIDINE 20 MG TAB PO SCH (08:32)
[2016-07-12] MEDS: DIGOXIN 0.25 MG TAB PO SCH (08:33)
[2016-07-12] MEDS ORDERED: FUROSEMIDE 40 MG TAB PO SCH (09:00)
[2016-07-12] MEDS: CEFEPIME HCL 1 GM in D5W MINI-BAG PLUS 50 ML IV SCH ×2 (10:06→21:55)
[2016-07-12 10:39] LABS: CALCIUM LEVEL 8.7 MG/DL (8.8-10.2); CREATININE FOR GFR 2.02 MG/DL (0.55-1.02); GLOMERULAR FILTRATION RATE 25.9 (>39)
[2016-07-12 11:20] LABS: POTASSIUM SERUM 6.2 MEQ/L (3.5-5.1)
[2016-07-12 12:00] VITALS: BP 143/61
[2016-07-12] MEDS ORDERED: FUROSEMIDE 20 MG TAB PO SCH (12:00)
[2016-07-12] MEDS ORDERED: NS 1,000 ML IV SCH (13:30)
--- NOTE | 2016-07-12 13:37 | IPNPDOC ---
Subjective Date Seen The patient was seen on 07/12/16. Subjective Chief Complaint/HPI The patient is a 70-year-old female admitted with a reason for visit of Copd Exacerbation. General: Denies: Chills, Night Sweats Constitutional: Denies: Chills, Fever Eyes: Denies: Pain, Vision change ENT: Denies: Ear Pain, Head Aches Skin: Denies: Lesions, Rash Pulmonary: Reports: Cough, Denies: Dyspnea Cardiovascular: Denies: Chest Pain, Palpitations Gastrointestinal: Denies: Nausea, Vomiting Genitourinary: Denies: Dysuria, Frequency Hematologic: Denies: Bleeding Excessively, Bruising Objective Physical Examination General Exam: Positive: Alert, Cooperative, No Acute Distress ENT Exam: Positive: Atraumatic, Mucous membr. moist/pink Neck Exam: Negative: JVD Chest Exam: Positive: Clear to auscultation, Diminished, Negative: Wheezing Heart Exam: Positive: Normal S1, Normal S2, Rate Normal Abdomen Exam: Positive: Soft, Negative: Tenderness Extremity Exam: Negative: Swelling, Tenderness Assessment /Plan Plan/VTE VTE Prophylaxis Ordered?: Yes Plan Chronic obstructive pulmonary disease exacerbation (COPD) Chest X-Ray noted Blood and Sputum Cultures pending Will continue with empiric Abx therapy of Vanco and Cefepime until cultures come back Respiratory Panel negative s/p IV Solumedrol 205mg total from overnight--will with-hold further steroid treatment for now as the patient's blood sugar levels are elevated this morning Patient reports improved respiratory status this morning Cont nebulizer and Inhaler treatments We will continue to monitor the patient's progress Uncontrolled Hyperglycemia The patient does require high doses of Levemir twice a day, and we will continue this The patient was given 205 mg of IV solumedrol total for her COPD exacerbation overnight This has subsequently caused her to have elevated blood sugar levels this morning of 500+ No anion gap noted on BMP Further steroid therapy will be held for this time as the patient's respiratory status has improved The patient will be made nothing by mouth, every hour fingersticks, and she will be started on gentle IV fluid hydration given her underlying history of congestive heart failure We will continue to monitor her basic metabolic panel and administer insulin correction therapy based on her fingerstick readings Acute kidney injury superimposed on chronic kidney disease Serum creatinine noted to be 2.1 this morning (baseline closer to 1.2-1.3) Likely secondary to intravascular volume depletion from elevated blood sugar levels Will hold nephrotoxins therapy Gentle IV fluid hydration in view of underlying history of congestive heart failure We'll continue to monitor the patient's BMP Hyperkalemia likely secondary to hyperglycemia Serum K noted to be trending downward from 6.7 to 6.2 this morning No effects of arrhythmia noted on monitor and 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 Not on Beta rajwinder therapy 2/2 underlying COPD Will with-hold diuretic therapy for now given JENY Type 2 diabetes, uncontrolled Will continue with management as noted above Will continue with her home Lantus. Continue on ISS Stage 1A Adenocarcinoma of the Lung, status post recent lobectomy. Lobectomy recently performed on last hospitalization here on 05/31/16 Anxiety, depression Continue on Cymbalta, Ativan, venlafaxine. Insomnia Continue on trazodone. Chronic low back pain Continue on tramadol. Iron deficiency anemia Continue iron supplementation. Gout Continue on allopurinol. Hypothyroidism Continue Levothyroxine Gastroesophageal reflux disease Continue on Pepcid, Nexium and ranitidine. Atrial fibrillation Not anticoagulated secondary to history of falls. Rate controlled with digoxin. Obstructive sleep apnea Continue home CPAP. Deep vein thrombosis (DVT) prophylaxis Continue on SQ heparin Disposition: Patient's respiratory status appears improved. Will continue to manage hyperglycemia closely with gentle IVF hydration and insulin therapy. VS, I&O, 24H, Fishbone Vital Signs/I&O Vital Signs Date Time Temp Pulse Resp B/P Pulse Ox O2 Delivery O2 Flow Rate FiO2 07/12/16 08:33 64 07/12/16 08:00 96.6 24 149/61 95 Nasal Cannula 2.0 Laboratory Data 24H LABS Laboratory Tests 2 07/11/16 15:36: Anion Gap 9, B-Type Natriuretic Peptide 107H, White Blood Count 18.8H, Red Blood Count 3.81L, Hemoglobin 11.2L, Hematocrit 33.7L, Mean Corpuscular Volume 88.2, Mean Corpuscular Hemoglobin 29.4, Mean Corpuscular Hemoglobin Concent 33.3 , Red Cell Distribution Width 17.0H, Platelet Count 245, Neutrophils (%) (Auto) 86.6H, Lymphocytes (%) (Auto) 6.3L, Monocytes (%) (Auto) 5.1H, Eosinophils (%) ( Auto) 1.0, Basophils (%) (Auto) 0.2, Neutrophils # (Auto) 16.3H, Lymphocytes # ( Auto) 1.3L, Monocytes # (Auto) 1.0H, Eosinophils # (Auto) 0.2, Basophils # (Auto ) 0.0, Blood Urea Nitrogen 38H, Creatinine 1.20H, Sodium Level 138, Potassium Level 5.6H, Chloride Level 99, Carbon Dioxide Level 30, Calcium Level 8.5L, Total Creatine Kinase 29, Creatine Kinase MB 1.9, Creatine Kinase MB Relative Index 6.55H, Glomerular Filtration Rate 47.3, Large Unclassified Cells # 0.1, Large Unclassified Cells % 0.7, Troponin I < 0.02 07/11/16 15:45: Arterial Blood pH 7.423, Arterial Blood Partial Pressure CO2 43.9, Arterial Blood Partial Pressure O2 88.9, Arterial Blood Total CO2 29.4, Arterial Blood HCO3 28.0H, Arterial Blood Base Excess 3.2H, Arterial Blood Oxygen Saturation 96.9, Blood Gas Bicarbonate Standard 27.3H 07/11/16 16:49: Total Creatine Kinase 25L, Creatine Kinase MB 1.6, Creatine Kinase MB Relative Index 6.40H, Troponin I < 0.02, Lactic Acid (Sepsis) 1.6 07/11/16 19:14: Total Creatine Kinase 25L, Creatine Kinase MB 2.1, Creatine Kinase MB Relative Index 8.40H, Troponin I < 0.02 07/11/16 21:31: Bedside Glucose (Misc Panel) > 600*H 07/11/16 21:33: Bedside Glucose (Misc Panel) 552*H 07/12/16 02:41: Bedside Glucose (Misc Panel) 554*H 07/12/16 02:46: Bedside Glucose (Misc Panel) 519*H 07/12/16 05:20: Anion Gap 14, Blood Urea Nitrogen 49H, Creatinine 2.16#H, Sodium Level 135L, Potassium Level 6.7*H, Chloride Level 93L, Carbon Dioxide Level 28, Calcium Level 8.8, Glomerular Filtration Rate 24.0L 07/12/16 09:42: Bedside Glucose (Misc Panel) 449H 07/12/16 10:09: Anion Gap 10, Blood Urea Nitrogen 52H, Creatinine 2.02H, Sodium Level 132L, Potassium Level 6.2*H, Chloride Level 93L, Carbon Dioxide Level 29, Calcium Level 8.7L, Glomerular Filtration Rate 25.9L 07/12/16 10:37: Bedside Glucose (Misc Panel) 433H 07/12/16 12:11: Bedside Glucose (Misc Panel) 415H CBC/BMP Laboratory Tests 07/11/16 15:36 Calcium Level 8.5 L, Total Creatine Kinase 29, Red Blood Count 3.81 L, Mean Corpuscular Volume 88.2, Mean Corpuscular Hemoglobin 29.4, Mean Corpuscular Hemoglobin Concent 33.3, Red Cell Distribution Width 17.0 H, Neutrophils (%) ( Auto) 86.6 H, Lymphocytes (%) (Auto) 6.3 L, Monocytes (%) (Auto) 5.1 H, Eosinophils (%) (Auto) 1.0, Basophils (%) (Auto) 0.2, Neutrophils # (Auto) 16.3 H, Lymphocytes # (Auto) 1.3 L, Monocytes # (Auto) 1.0 H, Eosinophils # (Auto) 0.2, Basophils # (Auto) 0.0 07/12/16 05:20 Calcium Level 8.8, Red Blood Count 4.03, Mean Corpuscular Volume 92.1, Mean Corpuscular Hemoglobin 30.0, Mean Corpuscular Hemoglobin Concent 32.6, Red Cell Distribution Width 17.1 H 07/12/16 10:09 Calcium Level 8.7 L Microbiology Microbiology 07/11/16 Blood Culture, Received Pending 07/11/16 Blood Culture, Received Pending 07/11/16 MRSA Screen, Received Pending 07/11/16 Respiratory Virus Panel (PCR) (PIA) - Final, Complete BERNARDA VEGA MD Jul 12, 2016 13:37
[2016-07-12 16:00] VITALS: BP 153/69
[2016-07-12 18:14] LABS: CALCIUM LEVEL 8.4 MG/DL (8.8-10.2); CREATININE FOR GFR 1.65 MG/DL (0.55-1.02); GLOMERULAR FILTRATION RATE 32.7 (>39)
[2016-07-12 18:19] LABS: POTASSIUM SERUM 6.2 MEQ/L (3.5-5.1)
[2016-07-12] MEDS ORDERED: SOD POLYSTYRENE SULFONATE SUSP 15 GM/60 ML UD PO ONE (19:30)
[2016-07-12 20:00] VITALS: BP 137/64
[2016-07-12] MEDS: traZODone 50 MG TAB PO SCH (21:53)
[2016-07-12] MEDS: ATORVASTATIN 20 MG TAB PO SCH (21:53)
[2016-07-12] MEDS: ALLOPURINOL 100 MG TAB PO SCH (21:54)
[2016-07-13] VITALS (7 sets, daily range): BP systolic 107–149; BP diastolic 50–78
[2016-07-13] MEDS: VANCOMYCIN HCL 750 MG, VIAL MATE ADAPTER 1 EACH in D5W 250 ML IV SCH ×2 (05:34→17:06)
[2016-07-13] MEDS: LEVOTHYROXINE 0.05 MG TAB (50 MCG) PO SCH (05:34)
[2016-07-13 05:46] LABS: MEAN CORPUSCULAR HEMOGLOBIN 28.5 pg (27.0-33.0); MEAN CORPUSCULAR HGB CONC 31.9 g/dl (32.0-36.5); MEAN CORPUSCULAR VOLUME 89.2 fl (80.0-96.0); RED CELL DISTRIBUTION WIDTH 17.2 % (11.5-14.5); WHITE BLOOD COUNT 21.1 K/mm3 (4.0-10.0)
[2016-07-13 06:01] LABS: CREATININE FOR GFR 1.22 MG/DL (0.55-1.02); GLOMERULAR FILTRATION RATE 46.4 (>39)
[2016-07-13 06:02] LABS: CALCIUM LEVEL 8.4 MG/DL (8.8-10.2); POTASSIUM SERUM 4.6 MEQ/L (3.5-5.1)
[2016-07-13] MEDS: ADVAIR DISKUS 500/50 INH PWD INH SCH ×2 (07:30→19:43)
[2016-07-13] MEDS: IPRATROPIUM 0.02% SOLN 0.5MG/2.5 ML NEB INH SCH ×4 (08:00→19:45)
[2016-07-13] MEDS: LEVALBUTEROL 1.25 MG/0.5 ML CONCENTRATE NEB INH SCH ×4 (08:00→19:45)
[2016-07-13] MEDS: VENLAFAXINE 37.5 MG TAB PO SCH ×2 (08:23→21:04)
[2016-07-13] MEDS: DIGOXIN 0.25 MG TAB PO SCH (08:24)
[2016-07-13] MEDS: LORazepam 0.5 MG TAB PO SCH ×2 (08:24→21:05)
[2016-07-13] MEDS: DULoxetine 30 MG CAP (CYMBALTA) PO SCH (08:24)
[2016-07-13] MEDS: ASPIRIN 81 MG ENTERIC TAB PO SCH (08:24)
[2016-07-13] MEDS: PANTOPRAZOLE 40MG TAB (PROTONIX) PO SCH (08:24)
[2016-07-13] MEDS: FAMOTIDINE 20 MG TAB PO SCH (08:24)
[2016-07-13] MEDS: HumaLOG INSULIN (NovoLOG) PER UNIT SC SCH ×4 (08:24→20:55)
[2016-07-13] MEDS: FERROUS SULFATE 325MG TAB PO SCH (08:24)
[2016-07-13] MEDS: LEVEMIR (INSULIN DETEMIR) 1 UNITS/0.01ML SC SCH ×2 (08:25→21:04)
[2016-07-13] MEDS: HEPARIN SOD (PORCINE) 5000 UNITS/ML VIAL SC SCH ×2 (08:25→21:04)
[2016-07-13] MEDS: CEFEPIME HCL 1 GM in D5W MINI-BAG PLUS 50 ML IV SCH ×2 (08:26→21:05)
--- NOTE | 2016-07-13 08:40 | ECGEPIP ---
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
--- NOTE | 2016-07-13 11:35 | IPNPDOC ---
Subjective Date Seen The patient was seen on 07/13/16. Subjective Chief Complaint/HPI The patient is a 70-year-old female admitted with a reason for visit of Copd Exacerbation. General: Denies: Chills, Night Sweats Constitutional: Denies: Chills, Fever Eyes: Denies: Pain, Vision change ENT: Denies: Ear Pain, Head Aches Skin: Denies: Lesions, Rash Pulmonary: Reports: Cough, Dyspnea Cardiovascular: Denies: Chest Pain, Palpitations Gastrointestinal: Denies: Nausea, Vomiting Genitourinary: Denies: Dysuria, Frequency Hematologic: Denies: Bleeding Excessively, Bruising Objective Physical Examination General Exam: Positive: Alert, Cooperative, No Acute Distress ENT Exam: Positive: Atraumatic, Mucous membr. moist/pink Neck Exam: Negative: JVD Chest Exam: Positive: Clear to auscultation, Diminished, Negative: Wheezing Heart Exam: Positive: Normal S1, Normal S2, Rate Normal Abdomen Exam: Positive: Soft, Negative: Tenderness Extremity Exam: Negative: Swelling, Tenderness Assessment /Plan Plan/VTE VTE Prophylaxis Ordered?: Yes Plan Chronic obstructive pulmonary disease exacerbation (COPD) Chest X-Ray noted Blood and Sputum Cultures unrevealing thus far Will continue with empiric Abx therapy of Vanco and Cefepime and will consider transition to PO Abx over the next 24 hours Respiratory Panel negative Patient reports continued improvement of respiratory status Cont nebulizer and Inhaler treatments We will continue to monitor the patient's progress Uncontrolled Hyperglycemia Patient's Blood sugar levels better controlled since last night after she was Kept NPO, put on gentle IVF hydration, and given aggressive sliding scale coverage in addition to her Basal Insulin doses for most of the day We will continue the patient on Levemir 50 Units in the AM and 55 Units in the PM Cont ISS We will continue to monitor Acute kidney injury superimposed on chronic kidney disease, resolved Serum creatinine noted to be 1.22 this morning (baseline to 1.2-1.3) Likely secondary to intravascular volume depletion from elevated blood sugar levels We'll continue to monitor the patient's BMP, and restart diuretic therapy tomorrow if BMP stable Hyperkalemia likely secondary to hyperglycemia s/p IVF Hydration, Insulin treatment, and a dose of Kayexalate yesterday Serum K noted to be 4.6 this am Will cont to monitor Hx of Coronary artery disease, Systolic CHF with EF of 35% Continue aspirin and statin. Not on Beta rajwinder therapy 2/2 underlying COPD Will restart diuretic therapy in AM if Renal Function remains stable Type 2 diabetes, uncontrolled Will continue with her home Lantus. Continue on ISS Stage 1A Adenocarcinoma of the Lung, status post recent lobectomy. Lobectomy recently performed on last hospitalization here on 05/31/16 Anxiety, depression Continue on Cymbalta, Ativan, venlafaxine. Insomnia Continue on trazodone. Chronic low back pain Continue on tramadol. Iron deficiency anemia Continue iron supplementation. Gout Continue on allopurinol. Hypothyroidism Continue Levothyroxine Gastroesophageal reflux disease Continue on Pepcid, Nexium and ranitidine. Atrial fibrillation Not anticoagulated secondary to history of falls. Rate controlled with digoxin. Obstructive sleep apnea Continue home CPAP. Deep vein thrombosis (DVT) prophylaxis Continue on SQ heparin Disposition: Patient's respiratory status appears improved, and glucose levels much better controlled today. We will continue to monitor her progression and switch to PO Abx tomorrow. Patient to work with PT for further delineation of disposition. VS, I&O, [facility] Vital Signs/I&O Vital Signs Date Time Temp Pulse Resp B/P Pulse Ox O2 Delivery O2 Flow Rate FiO2 07/13/16 08:24 84 07/13/16 08:00 Nasal Cannula 2.0 07/13/16 07:45 96.6 18 149/60 93 I&O- Last 24 Hours up to 6 AM 07/13/16 06:00 Intake Total 730 ml Output Total 3100 ml Balance -2370 ml Laboratory Data 24H LABS Laboratory Tests 2 07/12/16 12:11: Bedside Glucose (Misc Panel) 415H 07/12/16 13:26: Bedside Glucose (Misc Panel) 445H 07/12/16 16:06: Bedside Glucose (Misc Panel) 357H 07/12/16 16:33: Anion Gap 7L, Blood Urea Nitrogen 51H, Creatinine 1.65H, Sodium Level 133L, Potassium Level 6.2*H, Chloride Level 96L, Carbon Dioxide Level 30, Calcium Level 8.4L, Glomerular Filtration Rate 32.7L, Vancomycin Level Trough 13.2 07/12/16 18:25: Bedside Glucose (Misc Panel) 295H 07/12/16 21:10: Bedside Glucose (Misc Panel) 268H 07/12/16 22:36: Bedside Glucose (Misc Panel) 231H 07/13/16 05:18: Anion Gap 10, Blood Urea Nitrogen 41H, Creatinine 1.22H, Sodium Level 140#, Potassium Level 4.6#, Chloride Level 101, Carbon Dioxide Level 29, Calcium Level 8.4L, Glomerular Filtration Rate 46.4 CBC/BMP Laboratory Tests 07/12/16 16:33 Calcium Level 8.4 L 07/13/16 05:18 Calcium Level 8.4 L, Red Blood Count 3.82 L, Mean Corpuscular Volume 89.2, Mean Corpuscular Hemoglobin 28.5, Mean Corpuscular Hemoglobin Concent 31.9 L, Red Cell Distribution Width 17.2 H Microbiology Microbiology 07/11/16 Blood Culture - Preliminary, Resulted No growth after 24 hours . All specim... 07/11/16 Blood Culture - Preliminary, Resulted No growth after 24 hours . All specim... 07/11/16 MRSA Screen - Final, Complete 07/11/16 Respiratory Virus Panel (PCR) (PIA) - Final, Complete BERNARDA VEGA MD Jul 13, 2016 11:35
[2016-07-13 19:08] LABS: MAGNESIUM LEVEL 2.3 MG/DL (1.8-2.4)
[2016-07-13] MEDS: traZODone 50 MG TAB PO SCH (21:04)
[2016-07-13] MEDS: ATORVASTATIN 20 MG TAB PO SCH (21:05)
[2016-07-13] MEDS: ALLOPURINOL 100 MG TAB PO SCH (21:05)
[2016-07-14 04:00] VITALS: BP 131/67
[2016-07-14 05:37] LABS: MEAN CORPUSCULAR HEMOGLOBIN 29.9 pg (27.0-33.0); MEAN CORPUSCULAR HGB CONC 33.9 g/dl (32.0-36.5); MEAN CORPUSCULAR VOLUME 88.3 fl (80.0-96.0); RED CELL DISTRIBUTION WIDTH 17.3 % (11.5-14.5); WHITE BLOOD COUNT 11.2 K/mm3 (4.0-10.0)
[2016-07-14 05:44] LABS: ANION GAP 6 MEQ/L (8-16); BLOOD UREA NITROGEN 23 MG/DL (7-18); CALCIUM LEVEL 8.3 MG/DL (8.8-10.2); CARBON DIOXIDE LEVEL 34 MEQ/L (21-32); CHLORIDE LEVEL 103 MEQ/L (98-107); CREATININE FOR GFR 0.87 MG/DL (0.55-1.02); GLOMERULAR FILTRATION RATE > 60.0 (>39); GLUCOSE, FASTING 109 MG/DL (83-110); POTASSIUM SERUM 4.2 MEQ/L (3.5-5.1); SODIUM LEVEL 143 MEQ/L (136-145)
[2016-07-14] MEDS: VANCOMYCIN HCL 750 MG, VIAL MATE ADAPTER 1 EACH in D5W 250 ML IV SCH (05:48)
[2016-07-14] MEDS: LEVOTHYROXINE 0.05 MG TAB (50 MCG) PO SCH (05:48)
[2016-07-14] MEDS: ADVAIR DISKUS 500/50 INH PWD INH SCH ×2 (07:34→19:52)
[2016-07-14] MEDS: LEVALBUTEROL 1.25 MG/0.5 ML CONCENTRATE NEB INH SCH ×4 (07:34→20:00)
[2016-07-14] MEDS: IPRATROPIUM 0.02% SOLN 0.5MG/2.5 ML NEB INH SCH ×4 (07:34→20:00)
[2016-07-14 08:00] VITALS: BP 128/58
[2016-07-14] MEDS ORDERED: predniSONE 10 MG TAB PO SCH (08:00)
[2016-07-14] MEDS: HumaLOG INSULIN (NovoLOG) PER UNIT SC SCH ×4 (08:00→20:38)
[2016-07-14] MEDS: HEPARIN SOD (PORCINE) 5000 UNITS/ML VIAL SC SCH ×2 (08:00→20:36)
[2016-07-14] MEDS: LEVEMIR (INSULIN DETEMIR) 1 UNITS/0.01ML SC SCH ×2 (08:00→20:38)
[2016-07-14] MEDS: LORazepam 0.5 MG TAB PO SCH ×2 (08:01→20:37)
[2016-07-14] MEDS: PANTOPRAZOLE 40MG TAB (PROTONIX) PO SCH (08:01)
[2016-07-14] MEDS: FERROUS SULFATE 325MG TAB PO SCH (08:01)
[2016-07-14] MEDS: VENLAFAXINE 37.5 MG TAB PO SCH ×2 (08:01→20:37)
[2016-07-14] MEDS: DIGOXIN 0.25 MG TAB PO SCH (08:01)
[2016-07-14] MEDS: ASPIRIN 81 MG ENTERIC TAB PO SCH (08:01)
[2016-07-14] MEDS: DULoxetine 30 MG CAP (CYMBALTA) PO SCH (08:01)
[2016-07-14] MEDS: FAMOTIDINE 20 MG TAB PO SCH (08:02)
[2016-07-14] MEDS: CEFEPIME HCL 1 GM in D5W MINI-BAG PLUS 50 ML IV SCH (08:07)
[2016-07-14] MEDS ORDERED: POTASSIUM CHLORIDE 10 MEQ SR TABLET PO SCH (09:00)
[2016-07-14] MEDS: FUROSEMIDE 40 MG TAB PO SCH (09:06)
[2016-07-14] MEDS: LISINOPRIL 10 MG TAB PO SCH (09:06)
[2016-07-14] MEDS: SPIRONOLACTONE 12.5MG PER 1/2 TABLET PO SCH (09:07)
--- NOTE | 2016-07-14 11:46 | IPNPDOC ---
Subjective Date Seen The patient was seen on 07/14/16. Subjective Chief Complaint/HPI The patient is a 70-year-old female admitted with a reason for visit of Copd Exacerbation. General: Denies: Chills, Night Sweats Constitutional: Denies: Chills, Fever Eyes: Denies: Pain, Vision change ENT: Denies: Ear Pain, Head Aches Skin: Denies: Lesions, Rash Pulmonary: Denies: Cough, Dyspnea Cardiovascular: Denies: Chest Pain, Palpitations Gastrointestinal: Denies: Nausea, Vomiting Genitourinary: Denies: Dysuria, Frequency Hematologic: Denies: Bleeding Excessively, Bruising Objective Physical Examination General Exam: Positive: Alert, Cooperative, No Acute Distress ENT Exam: Positive: Atraumatic, Mucous membr. moist/pink Neck Exam: Negative: JVD Chest Exam: Positive: Clear to auscultation, Diminished, Negative: Wheezing Heart Exam: Positive: Normal S1, Normal S2, Rate Normal Abdomen Exam: Positive: Soft, Negative: Tenderness Extremity Exam: Negative: Swelling, Tenderness Assessment /Plan Plan/VTE VTE Prophylaxis Ordered?: Yes Plan Chronic obstructive pulmonary disease exacerbation (COPD) Chest X-Ray noted Blood and Sputum Cultures unrevealing thus far Respiratory Panel negative We will switch the patient over to PO Levaquin Patient reports continued improvement of respiratory status Cont nebulizer and Inhaler treatments We will continue to monitor the patient's progress Diabetes Mellitus, controlled We will continue the patient on Levemir 50 Units in the AM and 55 Units in the PM Cont ISS We will continue to monitor Acute kidney injury superimposed on chronic kidney disease, resolved Serum creatinine noted to be 0.87 this morning (baseline to 1.2-1.3) Likely secondary to intravascular volume depletion from elevated blood sugar levels We'll continue to monitor the patient's BMP, and restart diuretic therapy tomorrow if BMP stable Hyperkalemia likely secondary to hyperglycemia Resolved Will cont to monitor Hx of Coronary artery disease, Systolic CHF with EF of 35% Continue aspirin and statin. Not on Beta rajwinder therapy 2/2 underlying COPD Cont Lasix, Aldactone Stage 1A Adenocarcinoma of the Lung, status post recent lobectomy. Lobectomy recently performed on last hospitalization here on 05/31/16 Anxiety, depression Continue on Cymbalta, Ativan, venlafaxine. Insomnia Continue on trazodone. Chronic low back pain Continue on tramadol. Iron deficiency anemia Continue iron supplementation. Gout Continue on allopurinol. Hypothyroidism Continue Levothyroxine Gastroesophageal reflux disease Continue on Pepcid, Nexium and ranitidine. Atrial fibrillation Not anticoagulated secondary to history of falls. Rate controlled with digoxin. Obstructive sleep apnea Continue home CPAP. Deep vein thrombosis (DVT) prophylaxis Continue on SQ heparin Disposition: Patient's respiratory status appears improved, switched Abx to PO Levaquin today. PT eval noted. Anticipate D/C in 24 hrs. VS, I&O, 24H, Fishbone Vital Signs/I&O Vital Signs Date Time Temp Pulse Resp B/P Pulse Ox O2 Delivery O2 Flow Rate FiO2 07/14/16 09:06 128/58 07/14/16 08:01 66 07/14/16 08:00 Nasal Cannula 2.0 07/14/16 08:00 96.5 22 92 I&O- Last 24 Hours up to 6 AM 07/14/16 05:59 Intake Total 1765 ml Output Total 1700 ml Balance 65 ml Laboratory Data 24H LABS Laboratory Tests 2 07/13/16 11:57: Bedside Glucose (Misc Panel) 178H 07/13/16 16:20: Bedside Glucose (Misc Panel) 230H 07/13/16 20:54: Bedside Glucose (Misc Panel) 222H 07/14/16 05:13: Anion Gap 6L, Blood Urea Nitrogen 23H, Creatinine 0.87, Sodium Level 143, Potassium Level 4.2, Chloride Level 103, Carbon Dioxide Level 34H, Calcium Level 8.3L, Glomerular Filtration Rate > 60.0 CBC/BMP Laboratory Tests 07/14/16 05:13 Calcium Level 8.3 L, Red Blood Count 3.45 L, Mean Corpuscular Volume 88.3, Mean Corpuscular Hemoglobin 29.9, Mean Corpuscular Hemoglobin Concent 33.9, Red Cell Distribution Width 17.3 H Microbiology Microbiology 07/11/16 Blood Culture - Preliminary, Resulted No Growth after 48 hours. All Specime... 07/11/16 Blood Culture - Preliminary, Resulted No Growth after 48 hours. All Specime... 07/11/16 MRSA Screen - Final, Complete 07/11/16 Respiratory Virus Panel (PCR) (PIA) - Final, Complete BERNARDA VEGA MD Jul 14, 2016 11:46
[2016-07-14 12:00] VITALS: BP 112/56
[2016-07-14] MEDS: FUROSEMIDE 20 MG TAB PO SCH (12:01)
[2016-07-14 13:15] VITALS: BP 131/63
[2016-07-14] MEDS ORDERED: LevoFLOXacin 500 MG TABLET PO SCH (18:00)
[2016-07-14 19:45] VITALS: BP 117/59
[2016-07-14] MEDS: ALLOPURINOL 100 MG TAB PO SCH (20:37)
[2016-07-14] MEDS: ATORVASTATIN 20 MG TAB PO SCH (20:37)
[2016-07-14] MEDS: traZODone 50 MG TAB PO SCH (20:37)
[2016-07-14 23:59] VITALS: BP 119/65
[2016-07-15 04:45] VITALS: BP 116/53
[2016-07-15 05:39] LABS: MEAN CORPUSCULAR HEMOGLOBIN 29.3 pg (27.0-33.0); MEAN CORPUSCULAR HGB CONC 33.1 g/dl (32.0-36.5); MEAN CORPUSCULAR VOLUME 88.4 fl (80.0-96.0); RED CELL DISTRIBUTION WIDTH 17.5 % (11.5-14.5); WHITE BLOOD COUNT 8.4 K/mm3 (4.0-10.0)
[2016-07-15 05:49] LABS: CALCIUM LEVEL 8.1 MG/DL (8.8-10.2); GLOMERULAR FILTRATION RATE 58.4 (>39); POTASSIUM SERUM 3.9 MEQ/L (3.5-5.1)
[2016-07-15] MEDS: LEVOTHYROXINE 0.05 MG TAB (50 MCG) PO SCH (05:56)
[2016-07-15] MEDS: IPRATROPIUM 0.02% SOLN 0.5MG/2.5 ML NEB INH SCH ×2 (06:56→11:09)
[2016-07-15] MEDS: LEVALBUTEROL 1.25 MG/0.5 ML CONCENTRATE NEB INH SCH ×2 (06:56→11:09)
[2016-07-15] MEDS: ADVAIR DISKUS 500/50 INH PWD INH SCH (07:48)
[2016-07-15 08:00] VITALS: BP 130/55
[2016-07-15] MEDS: LEVEMIR (INSULIN DETEMIR) 1 UNITS/0.01ML SC SCH (08:29)
[2016-07-15] MEDS: HumaLOG INSULIN (NovoLOG) PER UNIT SC SCH ×2 (08:30→12:00)
[2016-07-15] MEDS: FAMOTIDINE 20 MG TAB PO SCH (08:30)
[2016-07-15] MEDS: HEPARIN SOD (PORCINE) 5000 UNITS/ML VIAL SC SCH (08:30)
[2016-07-15] MEDS: FERROUS SULFATE 325MG TAB PO SCH (08:30)
[2016-07-15] MEDS: SPIRONOLACTONE 12.5MG PER 1/2 TABLET PO SCH (08:31)
[2016-07-15] MEDS: ASPIRIN 81 MG ENTERIC TAB PO SCH (08:31)
[2016-07-15] MEDS: PANTOPRAZOLE 40MG TAB (PROTONIX) PO SCH (08:31)
[2016-07-15] MEDS: VENLAFAXINE 37.5 MG TAB PO SCH (08:31)
[2016-07-15] MEDS: DIGOXIN 0.25 MG TAB PO SCH (08:32)
[2016-07-15] MEDS: LORazepam 0.5 MG TAB PO SCH (08:32)
[2016-07-15] MEDS: FUROSEMIDE 40 MG TAB PO SCH (08:33)
[2016-07-15] MEDS: DULoxetine 30 MG CAP (CYMBALTA) PO SCH (08:33)
[2016-07-15] MEDS: LISINOPRIL 10 MG TAB PO SCH (08:33)
[2016-07-15] MEDS ORDERED: LEVA500T PO (10:29)
[2016-07-15 12:00] VITALS: BP 130/55
[2016-07-15] MEDS: FUROSEMIDE 20 MG TAB PO SCH (12:00)
--- NOTE | 2016-07-15 14:48 | DS.PDOC ---
Discharge Summary General Date of Admission Jul 11, 2016 at 20:13 Date of Discharge Jul 15, 2016 at 12:35 Discharge Summary PROCEDURES PERFORMED DURING STAY: None. ADMITTING DIAGNOSES: 1. .COPD Exacerbation 2. .CHF 3. .DM DISCHARGE DIAGNOSES: 1. .COPD Exacerbation 2. .CHF 3. .DM COMPLICATIONS/CHIEF COMPLAINT: Copd Exacerbation. HISTORY OF PRESENT ILLNESS: . 70-year-old female with past medical history of CAD, systolic CHF, hypertension , type 2 diabetes mellitus, dyslipidemia, lung cancer status post recent lobectomy, dyslipidemia, COPD on 2 L via nasal cannula at baseline presents to the ER with a chief complaint of shortness of breath. The patient states that over the last 2 days prior to her presentation the ER she has noted progressively worsening shortness of breath even at rest, with increased cough productive of yellowish sputum. She denied any chest pain, lightheadedness, dizziness, PND, orthopnea, or lower extremity swelling. In the ER, patient was found to be in decompensated chronic obstructive pulmonary disease exacerbation. She was admitted to the hospitalist service for further evaluation and treatment for the same. During the patient's stay in the hospital, she was treated with empiric antibiotic therapy. Patient's blood cultures and respiratory panel was noted to be negative. In addition, the patient did also receive IV steroids. Over the ensuing 4 days of her hospitalization, the patient's respiratory status significantly improved. At this time, the patient states that she is feeling back to her normal baseline. Patient was also seen by physical therapy, who cleared the patient to return back to her previous level of care. I've advised the patient to follow-up with her primary care physician within one week, and return to the ER if her symptoms return or worsen. DISCHARGE MEDICATIONS: Please see below. ALLERGIES: Please see below. PHYSICAL EXAMINATION ON DISCHARGE: VITAL SIGNS: Please see below. General Exam: Positive: Alert, Cooperative, No Acute Distress ENT Exam: Positive: Atraumatic, Mucous membr. moist/pink Neck Exam: Negative: JVD Chest Exam: Positive: Clear to auscultation, Diminished, Negative: Wheezing Heart Exam: Positive: Normal S1, Normal S2, Rate Normal Abdomen Exam: Positive: Soft, Negative: Tenderness Extremity Exam: Negative: Swelling, Tenderness LABORATORY DATA: Please see below. IMAGING: Chest x-ray: Two views. History: Chest pain. Comparison chest x-ray July 01, 2016. Findings: There are patchy areas of bibasilar consolidation again noted similar to prior studies. There is some improvement in the right base. The left base opacities are essentially unchanged from most recent prior study of July 09, 2016. They appear more prominent than on July 01, 2016. There are post thoracotomy changes on the right with elevation of the right hemidiaphragm and right mediastinal and perihilar clips and sutures. There is some patchy consolidation in the right upper lobe as well. Impression: Patchy bilateral infiltrates essentially unchanged from the most recent prior study of July 09, 2016. Post thoracotomy changes on the right. PROGNOSIS: Medically stable ACTIVITY: As tolerated. DIET: . 2 g low sodium diet DISCHARGE PLAN: DISPOSITION: Home Health Service. DISCHARGE INSTRUCTIONS: 1. . Follow-up with primary care physician within one week DISCHARGE CONDITION: Stable. TIME SPENT ON DISCHARGE: Greater than 30 minutes. Vital Signs/I&Os Vital Signs Date Time Temp Pulse Resp B/P Pulse Ox O2 Delivery O2 Flow Rate FiO2 07/15/16 12:00 90 130/55 07/15/16 08:00 96.0 20 95 Nasal Cannula 2.0 I&O- Last 24 Hours up to 6 AM 07/15/16 06:00 Intake Total 640 ml Output Total 2000 ml Balance -1360 ml Laboratory Data Labs 24H Laboratory Tests 2 07/14/16 16:09: Bedside Glucose (Misc Panel) 194H 07/14/16 19:44: Bedside Glucose (Misc Panel) 194H 07/15/16 04:59: Anion Gap 8, Blood Urea Nitrogen 16, Creatinine 1.00, Sodium Level 140, Potassium Level 3.9, Chloride Level 99, Carbon Dioxide Level 33H, Calcium Level 8.1L, Glomerular Filtration Rate 58.4 CBC/BMP Laboratory Tests 07/15/16 04:59 Calcium Level 8.1 L, Red Blood Count 3.62 L, Mean Corpuscular Volume 88.4, Mean Corpuscular Hemoglobin 29.3, Mean Corpuscular Hemoglobin Concent 33.1, Red Cell Distribution Width 17.5 H FSBS Laboratory Tests Test 07/14/16 16:09 07/14/16 19:44 Range/Units Bedside Glucose (Misc Panel) 194 194 83-110 MG/DL Microbiology Microbiology 07/11/16 Blood Culture - Preliminary, Resulted No Growth after 72 hours. All specime... 07/11/16 Blood Culture - Preliminary, Resulted No Growth after 72 hours. All specime... 07/11/16 MRSA Screen - Final, Complete 07/11/16 Respiratory Virus Panel (PCR) (PIA) - Final, Complete Discharge Medications Scheduled (Magnesium) 400 Mg Cap 800 MG PO TID (Reported) Allopurinol (Allopurinol) 100 Mg Tab 100 MG PO QHS (Reported) Aspirin (Ecotrin Low Strength) 81 Mg Tab 81 MG PO DAILY (Reported) Atorvastatin Calcium (Atorvastatin Calcium) 40 Mg Tab 40 MG PO QHS (Reported) Calcium/Vitamin D (Calcium 500 +D 500-400 mg-Unit) 1 Tab Tab 1 TAB PO DAILY ( Reported) TAKES AT NOON Digoxin (Digoxin) 0.25 Mg Tab 0.25 MG PO DAILY (Reported) Duloxetine Hcl (Cymbalta) 30 Mg Cap 30 MG PO DAILY (Reported) Esomeprazole Magnesium Trihydr (Nexium) 40 Mg Cap 40 MG PO DAILY (Reported) Ferrous Sulfate (Ferrous Sulfate) 325 Mg Tab 325 MG PO DAILY (Reported) Furosemide (Furosemide) 40 Mg Tab 40 MG PO QAM (Reported) Furosemide (Furosemide) 20 Mg Tab 20 MG PO DAILY (Reported) TAKES AT NOON Insulin Glargine (Lantus) 1 Units/0.01 Ml Susp 55 UNITS SC QAM (Reported) Insulin Glargine (Lantus) 1 Units/0.01 Ml Susp 50 UNITS SC QHS (Reported) Insulin Human Lispro (Humalog) 1 Units/0.01 Ml Inj 0 SC AC (Reported) PER SLIDING SCALE Levocetirizine Dihydrochloride (Xyzal) 5 Mg Tab 5 MG PO DAILY (Reported) Levofloxacin Hemihydrate (Levaquin) 500 Mg Tab 500 MG PO DAILY@18 Levothyroxine Sodium (Synthroid) 50 Mcg Tab 50 MCG PO DAILY (Reported) Lisinopril (Lisinopril) 10 Mg Tab 10 MG PO DAILY (Reported) Lorazepam (Ativan) 0.5 Mg Tab 0.5 MG PO BID (Reported) Metolazone (Metolazone) 2.5 Mg Tab 2.5 MG PO 1XWK (Reported) THURSDAYS Potassium Chloride (K-Tab) 10 Meq Tab 30 MEQ PO TID (Reported) Ranitidine Hcl (Zantac) 150 Mg Tab 1 TAB PO DAILY (Reported) Salmeterol/Fluticasone (Advair Diskus 500-50 Mcg/Dose) 28 Puff/Inhaler Aerp 1 PUFF INH BID (Reported) Spironolactone (Spironolactone) 25 Mg Tab 12.5 MG PO DAILY (Reported) Tiotropium [place] Monohydrate (Spiriva Handihaler) 18 Mcg Cap 18 MCG INH DAILY (Reported) Trazodone HCl (Trazodone HCl) 150 Mg Tab 150 MG PO QHS (Reported) Venlafaxine Hydrochloride (Venlafaxine HCl) 75 Mg Tab 75 MG PO BID (Reported) Vitamin D (Drisdol) 50,000 Unit Cap 50,000 UNIT PO QWEEK (Reported) MONDAYS Scheduled PRN Albuterol Sulfate (Proair Hfa) 108 Mcg/Act Aer 2 PUFFS INH QIDP PRN PRN SHORTNESS OF BREATH (Reported) Fluticasone Propionate (Fluticasone Propionate) 50 Mcg/Act Spr 2 SPRAY NA DAILY PRN PRN ALLERGIES (Reported) Nitroglycerin (Nitrostat) 0.4 Mg Subl 0.4 MG SL NITRO PRN PRN CHEST PAIN ( Reported) Tramadol HCl (Tramadol HCl) 50 Mg Tab 50 MG PO QID PRN PRN PAIN (Reported) Allergies Coded Allergies: Penicillins (Verified Allergy, Unknown, 07/11/16) BERNARDA Pérez MD Jul 15, 2016 14:48
== END 2016-07-15 12:35 | disposition home health service (06) | DRG 191 ==
LOC: M ED 17:32 → M ED INP 20:13 → M PCU 21:05
PROVIDERS: ADMIT Internal Medicine; ATTEND Internal Medicine
DX: J44.1 Chronic obstructive pulmonary disease with (acute) exacerbation (principal); I50.22 Chronic systolic (congestive) heart failure; E11.9 Type 2 diabetes mellitus without complications; E78.5 Hyperlipidemia, unspecified; I25.10 Atherosclerotic heart disease of native coronary artery without angina pectoris; Z79.899 Other long term (current) drug therapy; Z79.82 Long term (current) use of aspirin; Z66 Do not resuscitate; Z88.0 Allergy status to penicillin; Z85.118 Personal history of other malignant neoplasm of bronchus and lung; K21.9 Gastro-esophageal reflux disease without esophagitis; F32.9 Major depressive disorder, single episode, unspecified; E55.9 Vitamin D deficiency, unspecified; M10.9 Gout, unspecified; D50.9 Iron deficiency anemia, unspecified; E03.9 Hypothyroidism, unspecified; I48.91 Unspecified atrial fibrillation; G47.33 Obstructive sleep apnea (adult) (pediatric); F41.9 Anxiety disorder, unspecified; Z87.891 Personal history of nicotine dependence; E87.5 Hyperkalemia; M54.5 Low back pain

== ENCOUNTER → 2016-07-22 | Outpatient (CLI) | payer MEDICARE, MEDICAID ==
[~2016-07-22] MED LIST changes: +LEVA500T PO; +NITR4TASL SL
--- NOTE | 2016-07-22 13:39 | REP ---
Clinical: History of malignant neoplasm. Technique: PA and lateral. Comparison: Multiple examinations dating through 07/01/2016. Findings: Mediastinum and cardiac silhouette are stable. Elevation of the right diaphragmatic surface and opacification remains stable. Lung jacome demonstrate diffuse chronic interstitial changes and fibrosis/scarring. Superimposed acute atelectasis/infiltrate cannot be excluded. No obvious effusion. No pneumothorax. Surgical clips in the right hilum consistent with prior resection. Skeletal structures intact. Impression: Diffuse chronic stable changes. Cannot exclude superimposed acute process. Signed by Ki Garcia MD 07/22/2016 01:31 P
== END ==
LOC: M SMT 13:17
PROVIDERS: ATTEND Thoracic Surgery (Cardiothoracic Vascular Surgery)
DX: C34.11 Malignant neoplasm of upper lobe, right bronchus or lung (principal)

== ENCOUNTER → 2016-07-25 | Outpatient (CLI) | payer MEDICARE, MEDICAID ==
[~2016-07-25] MED LIST changes: +GABA300C3 PO; +LEVO500T32 PO
--- NOTE | 2016-07-25 15:58 | REP ---
MRI BRAIN WITHOUT AND WITH CONTRAST: HISTORY: Cerebral vascular disease. CONTRAST: ProHance 10.5 mL. COMPARISON: 04/01/2008. Scattered punctate areas of increased signal intensity on T2-weighted images are present in the periventricular and subcortical white matter and dl. This represents small vessel ischemic disease. There is no intraparenchymal hemorrhage, infarct, mass or midline shift. The sella turcica is partially empty. There is no abnormal enhancement. The ventricular system and cortical sulci are dilated consistent with minimal volume loss. There is no extracerebral collection. The sinuses are clear. IMPRESSION: 1. Minimal small vessel ischemic disease. 2. Minimal volume loss. Signed by Bassam Cook MD 07/25/2016 04:11 P
== END ==
LOC: M RAD 13:45
PROVIDERS: ATTEND Thoracic Surgery (Cardiothoracic Vascular Surgery)
DX: I69.898 Other sequelae of other cerebrovascular disease (principal)
CPT/HCPCS: 70553; A9576

== ENCOUNTER → 2016-07-26 | Outpatient (REF) | payer MEDICARE, MEDICAID ==
[2016-07-26 19:36] LABS: BASO % 0.3 % (0.0-1.0); EOS # 0.4 K/mm3 (0.0-0.50); EOS % 3.7 % (0.0-3.0); LARGE UNSTAINED CELL # 0.2 K/mm3 (0.0-0.4); LARGE UNSTAINED CELL % 1.7 % (0.0-4.0); LYMPH # 1.2 K/mm3 (1.5-4.5); LYMPH % 11.3 % (24.0-44.0); MEAN CORPUSCULAR HEMOGLOBIN 29.3 pg (27.0-33.0); MEAN CORPUSCULAR HGB CONC 31.8 g/dl (32.0-36.5); MEAN CORPUSCULAR VOLUME 92.3 fl (80.0-96.0); MONO # 0.7 K/mm3 (0.0-0.8); MONO % 6.9 % (0.0-5.0); NEUTROPHILS % 76.1 % (36.0-66.0); PLATELET COUNT, AUTOMATED 263 k/mm3 (150-450); RED CELL DISTRIBUTION WIDTH 17.5 % (11.5-14.5); WHITE BLOOD COUNT 10.5 K/mm3 (4.0-10.0)
[2016-07-26 19:45] LABS: ALBUMIN 2.9 GM/DL (3.2-5.2); BILIRUBIN,TOTAL 0.4 MG/DL (0.2-1.0); CALCIUM LEVEL 8.1 MG/DL (8.8-10.2); CREATININE FOR GFR 1.25 MG/DL (0.55-1.02); GLOMERULAR FILTRATION RATE 45.1 (>39); POTASSIUM SERUM 4.8 MEQ/L (3.5-5.1); TOTAL PROTEIN 5.8 GM/DL (6.4-8.2)
== END ==
LOC: M LAB REF 09:59
PROVIDERS: ATTEND Family Medicine
DX: Z13.0 Encounter for screening for diseases of the blood and blood-forming organs and certain disorders involving the immune mechanism (principal); E04.9 Nontoxic goiter, unspecified

== ENCOUNTER 2016-07-29 13:58 | Inpatient (IN) | payer MEDICARE, MEDICAID ==
[~2016-07-29] VITALS: Ht 167.6 cm; Wt 106.2 kg
[~2016-07-29 13:58] MED LIST changes: -GABA300C3 PO; -LEVO500T32 PO
[2016-07-29 15:05] LABS: BASO % 0.6 % (0.0-1.0); EOS # 0.4 K/mm3 (0.0-0.50); LARGE UNSTAINED CELL # 0.1 K/mm3 (0.0-0.4); LARGE UNSTAINED CELL % 1.3 % (0.0-4.0); LYMPH # 1.4 K/mm3 (1.5-4.5); MEAN CORPUSCULAR HEMOGLOBIN 30.4 pg (27.0-33.0); MEAN CORPUSCULAR HGB CONC 32.7 g/dl (32.0-36.5); MEAN CORPUSCULAR VOLUME 92.8 fl (80.0-96.0); MONO # 0.6 K/mm3 (0.0-0.8); MONO % 6.8 % (0.0-5.0); NEUTROPHILS # 6.3 K/mm3 (1.8-7.7); NEUTROPHILS % 72.4 % (36.0-66.0); PLATELET COUNT, AUTOMATED 267 k/mm3 (150-450); RED CELL DISTRIBUTION WIDTH 17.5 % (11.5-14.5); WHITE BLOOD COUNT 8.8 K/mm3 (4.0-10.0)
[2016-07-29 15:12] LABS: INR 1.01
[2016-07-29 15:21] LABS: ALBUMIN 2.8 GM/DL (3.2-5.2); ALBUMIN/GLOBULIN RATIO 0.72 (1.00-1.93); ALKALINE PHOSPHATASE 147 U/L (45-117); ALT/SGPT 23 U/L (12-78); ANION GAP 8 MEQ/L (8-16); AST/SGOT 22 U/L (15-37); BILIRUBIN,DIRECT < 0.1 MG/DL (0.0-0.2); BILIRUBIN,TOTAL 0.3 MG/DL (0.2-1.0); BLOOD UREA NITROGEN 21 MG/DL (7-18); CALCIUM LEVEL 8.7 MG/DL (8.8-10.2); CARBON DIOXIDE LEVEL 30 MEQ/L (21-32); CHLORIDE LEVEL 103 MEQ/L (98-107); CREATININE FOR GFR 1.36 MG/DL (0.55-1.02); GLOMERULAR FILTRATION RATE 40.9 (>39); GLUCOSE, FASTING 174 MG/DL (83-110); POTASSIUM SERUM 4.6 MEQ/L (3.5-5.1); SODIUM LEVEL 141 MEQ/L (136-145); TOTAL PROTEIN 6.7 GM/DL (6.4-8.2)
--- NOTE | 2016-07-29 15:45 | REP ---
Clinical: Chest pain. Technique: PA and lateral. Comparison: 07/22/2016. Findings: Diffuse chronic interstitial changes with fibrosis and scarring noted along with elevation of the right hemidiaphragm. Superimposed acute infiltrates cannot be excluded. No pneumothorax. No obvious effusion. Visualized mediastinum and cardiac silhouette stable. Skeletal structures intact. Impression: Diffuse chronic changes. Cannot exclude superimposed infiltrates. Signed by Ki Garcia MD 07/29/2016 03:36 P
[2016-07-29] MEDS ORDERED: ISOVUE-370 76% 100ML VIAL (Q9967) As Ordered ONE (17:39)
--- NOTE | 2016-07-29 18:13 | REP ---
Clinical: Chest pain and shortness of breath. Technique: Axial contrast enhanced images from the thoracic inlet to the upper abdomen using 100 ml Isovue 370 intravenous contrast material with multiplanar re-formations. Comparison: 06/24/2016. Findings: Satisfactory enhancement of the pulmonary vasculature is achieved and no filling defects are identified to suggest pulmonary embolus. Lung jacome demonstrate diffuse chronic fibrosis and interstitial changes along with scattered scarring. Consolidations in the right lower lobe and right upper lobe are noted and decreased when compared to prior examination. Patchy bilateral smaller infiltrate/atelectasis primarily involving the left base are also identified. No pleural effusion. No pneumothorax. Soft tissue and postsurgical changes involving the right hilum mediastinal lymph nodes are improved compared to prior examination. Multiple old right rib fractures remain stable. Heart/pericardium and thoracic aorta unchanged and within normal limits. Impression: No pulmonary embolus. Diffuse chronic and postsurgical changes. Small areas of consolidation in the right lower lobe and right upper lobe along with patchy scattered infiltrates/atelectasis and adenopathy are identified, but improved when compared to 06/24/2016. Signed by Ki Garcia MD 07/29/2016 06:06 P
[2016-07-29] MEDS ORDERED: IPRATROPIUM 0.5MG/ALBUTEROL 2.5MG INH SOL UD 3ML (DUONEB)(J7620) NEB ONE (18:45)
[2016-07-29] MEDS ORDERED: LevoFLOXacin IV 750 MG in APPROPRIATE DILUENT 1 EA IV ONE (19:00)
[2016-07-29] MEDS ORDERED: GABA300C3 PO (19:13)
[2016-07-29 19:35] VITALS: O2SAT 95
[2016-07-29] MEDS: HumaLOG INSULIN (NovoLOG) PER UNIT SC SCH (21:00)
[2016-07-29] MEDS: ADVAIR DISKUS 500/50 INH PWD INH SCH (21:00)
[2016-07-29 22:20] VITALS: BP 139/68
[2016-07-29] MEDS ORDERED: ONDANSETRON 4MG/2ML VIAL (J2405) IV PRN (22:45)
[2016-07-29] MEDS ORDERED: DEXTROSE 50% 50 ML SYRINGE IV PRN (22:45)
[2016-07-29] MEDS ORDERED: NITROGLYCERIN 0.4 MG SUBL TABLET SL PRN (22:45)
[2016-07-29] MEDS ORDERED: GLUCOSE 4 GM CHEW TABLET PO PRN (22:45)
[2016-07-29] MEDS ORDERED: IPRATROPIUM 0.5MG/ALBUTEROL 2.5MG INH SOL UD 3ML (DUONEB)(J7620) NEB PRN (22:45)
[2016-07-29] MEDS ORDERED: GLUCAGON FOR INJ 1 MG VIAL (J1610) SC PRN (22:45)
[2016-07-29] MEDS ORDERED: FLUTICASONE PROP 0.05% NASAL SPRAY 16 GM (FLONASE) PRN (22:45)
[2016-07-29] MEDS ORDERED: traMADol 50 MG TAB PO PRN (22:45)
[2016-07-29 23:08] LABS: OSMOLALITY SERUM 304 MOSM/KG (280-301)
[2016-07-29 23:17] LABS: GAMMA GLUTAMYLTRANSPEPTIDASE 29 U/L (5-55)
[2016-07-29] MEDS: IPRATROPIUM 0.5MG/ALBUTEROL 2.5MG INH SOL UD 3ML (DUONEB)(J7620) NEB SCH (23:32)
[2016-07-29] MEDS: VENLAFAXINE 37.5 MG TAB PO SCH (23:33)
[2016-07-29] MEDS: HEPARIN SOD (PORCINE) 5000 UNITS/ML VIAL SC SCH (23:33)
[2016-07-29] MEDS: LEVEMIR (INSULIN DETEMIR) 1 UNITS/0.01ML SC SCH (23:33)
[2016-07-29] MEDS: FUROSEMIDE 40 MG/4 ML VIAL (J1940) IV SCH (23:34)
[2016-07-29] MEDS: ATORVASTATIN 20 MG TAB PO SCH (23:34)
[2016-07-29] MEDS: ALLOPURINOL 100 MG TAB PO SCH (23:35)
[2016-07-29] MEDS: SENOKOT S TAB PO SCH (23:35)
[2016-07-29] MEDS: GABAPENTIN 300 MG CAP PO SCH (23:35)
[2016-07-29] MEDS: traZODone 50 MG TAB PO SCH (23:35)
[2016-07-29] MEDS: LORazepam 0.5 MG TAB PO SCH (23:35)
[2016-07-29 23:46] VITALS: BP 127/58
[2016-07-29] MEDS: ACETAMINOPHEN TAB 650MG DOSE (2X325MG) PO PRN (23:52)
[2016-07-30] MEDS ORDERED: SLF 3 ML SYR IV PRN (00:30)
[2016-07-30 04:30] VITALS: BP 141/63
[2016-07-30] MEDS: LEVOTHYROXINE 0.05 MG TAB (50 MCG) PO SCH (05:22)
[2016-07-30] MEDS: SLF 3 ML SYR IV SCH ×3 (05:22→21:36)
[2016-07-30] MEDS: HEPARIN SOD (PORCINE) 5000 UNITS/ML VIAL SC SCH ×3 (05:22→21:37)
[2016-07-30 07:30] VITALS: BP 150/62
[2016-07-30 07:31] LABS: BASO % 0.6 % (0.0-1.0); EOS # 0.4 K/mm3 (0.0-0.50); EOS % 6.7 % (0.0-3.0); LARGE UNSTAINED CELL # 0.1 K/mm3 (0.0-0.4); LARGE UNSTAINED CELL % 2.4 % (0.0-4.0); LYMPH # 0.9 K/mm3 (1.5-4.5); MEAN CORPUSCULAR HEMOGLOBIN 30.1 pg (27.0-33.0); MEAN CORPUSCULAR HGB CONC 32.7 g/dl (32.0-36.5); MONO # 0.4 K/mm3 (0.0-0.8); MONO % 6.9 % (0.0-5.0); NEUTROPHILS # 3.6 K/mm3 (1.8-7.7); NEUTROPHILS % 66.4 % (36.0-66.0); PLATELET COUNT, AUTOMATED 228 k/mm3 (150-450); RED CELL DISTRIBUTION WIDTH 17.3 % (11.5-14.5); WHITE BLOOD COUNT 5.5 K/mm3 (4.0-10.0)
[2016-07-30] MEDS: TIOTROPIUM INHALER/CAPSULE (SPIRIVA) INH SCH (07:51)
[2016-07-30] MEDS: ADVAIR DISKUS 500/50 INH PWD INH SCH ×2 (07:51→20:02)
[2016-07-30 07:55] LABS: ANION GAP 7 MEQ/L (8-16); BLOOD UREA NITROGEN 19 MG/DL (7-18); CALCIUM LEVEL 8.6 MG/DL (8.8-10.2); CARBON DIOXIDE LEVEL 32 MEQ/L (21-32); CHLORIDE LEVEL 101 MEQ/L (98-107); CREATININE FOR GFR 1.24 MG/DL (0.55-1.02); GLOMERULAR FILTRATION RATE 45.5 (>39); GLUCOSE, FASTING 137 MG/DL (83-110); PERCENT SATURATION 18.1 % (13.2-37.4); POTASSIUM SERUM 4.6 MEQ/L (3.5-5.1); SODIUM LEVEL 140 MEQ/L (136-145); TOTAL IRON BINDING CAPACITY 221 UG/DL (250-450)
[2016-07-30 07:56] LABS: FERRITIN 81 NG/ML (8-252)
[2016-07-30] MEDS: IPRATROPIUM 0.5MG/ALBUTEROL 2.5MG INH SOL UD 3ML (DUONEB)(J7620) NEB SCH ×3 (08:00→23:18)
--- NOTE | 2016-07-30 08:24 | HPE ---
DATE OF ADMISSION: 07/29/2016 TIME PATIENT WAS SEEN: 2100 PRIMARY CARE PROVIDER: Dr. Daley HEALTH AND HUMAN PERFORMANCE PROFESSOR: Dr. Daley MAIL LIST LIBRARIAN: Dr. Esposito CAREER RESOURCE TECHNICIAN: Dr. Coulter CHIEF COMPLAINT: Chest pain and trouble breathing. HISTORY OF PRESENT ILLNESS: 70-year-old female with past medical history of systolic congestive heart failure with ejection fraction of 35%, coronary artery disease, chronic obstructive pulmonary disease (COPD) on two liters nasal cannula oxygen 24 hours a day at home, recent lung cancer status post resection with Dr. Alexander, he performed a right upper lobe lobectomy, hypertension, chronic kidney disease, iron deficiency anemia, persistent consolidation at the right lower lobe, insulin-dependent type 2 diabetes, anxiety and mood disorder, obstructive sleep apnea on continuous positive airway pressure (CPAP) at night, presented with chest pain and trouble breathing. Per patient, chest pain started in the morning today while she was sitting and watching TV. She described it as a sudden pain. The pain was under breast and it felt like an elephant was sitting on her chest lasted for about an hour. It did not get better or worse with anything. She also admits to trouble breathing, worsened after the chest pain resolved. Otherwise, she admits to a similar pain for the past one year. She says she has it every day. However, today her daughter made her come to the hospital to get evaluated. Otherwise, patient denies any fever or chills, any abdominal pain, nausea, vomiting, diarrhea, or constipation, any problems with urination. Patient; however, did have a recent admission 07/11/2016. At that time, she was found to have decompensated COPD and was treated with IV Solu-Medrol as well as suspected health care-associated pneumonia. She also had recent lung cancer status post right upper lobe lobectomy with Dr. Alexander. ALLERGIES: She is allergic to PENICILLIN, which gives her hives. HOME MEDICATIONS: Includes; - ProAir two puffs inhalation four times a day as needed - allopurinol 100 mg one tablet by mouth at bedtime - aspirin 81 mg one tablet by mouth daily - atorvastatin 40 mg one tablet by mouth at bedtime - calcium with vitamin D one tablet by mouth daily - digoxin 0.25 mg one tablet by mouth daily - Cymbalta 30 mg one tablet by mouth daily - Nexium 40 mg one tablet by mouth daily - ferrous sulfate 325 mg one tablet by mouth daily - fluticasone two sprays in each naris twice a day as needed - Lasix 40 mg by mouth daily - Lasix 20 mg by mouth daily taken at noon - gabapentin 300 mg one tablet by mouth twice a day - Lantus 50 units subcutaneously every morning - Lantus 50 units subcutaneously at bedtime - insulin sliding-scale - Xyzal 5 mg one tablet by mouth daily - Synthroid 50 mcg one tablet by mouth daily - lisinopril 10 mg one tablet by mouth daily - Ativan 0.5 mg one tablet by mouth twice a day - magnesium 800 mg one tablet by mouth three times a day - metolazone 2.5 mg one tablet by mouth once weekly every - nitroglycerin 0.4 mg sublingual as needed - K-Tab 30 mEq by mouth three times a day - Zantac one tablet by mouth daily - Advair 500/50 mcg one puff inhalation twice a day - spironolactone 12.5 mg one tablet by mouth daily - Spiriva 18 mcg inhalation by mouth daily - tramadol 50 mg one tablet by mouth four times a day as needed - trazodone 150 mg one tablet by mouth at bedtime - venlafaxine 75 mg one tablet by mouth twice a day - vitamin D 50,000 units one tablet by mouth weekly on Friday PAST MEDICAL HISTORY: Includes; 1. Systolic heart failure with ejection fraction of 35%. Echocardiogram on 06/26/2016. 2. Coronary artery disease. 3. Hypertension. 4. COPD on two liters oxygen 24 hours a day at home follows with Dr. Daley. 5. Lung cancer status post right upper lobe lobectomy by Dr. Alexander in May 2016. 6. Iron deficiency anemia. 7. Chronic kidney disease. 8. Gout. 9. Hyperlipidemia. 10. Anxiety and mood disorder. 11. Obstructive sleep apnea on CPAP at night. 12. Hypothyroidism. PAST SURGICAL HISTORY: Includes; 1. Laparoscopic cholecystectomy. 2. Hysterectomy. 3. Appendectomy. 4. Laminectomy. 5. Right upper lobe resection due to lung cancer. Patient's last stress test was in May 2016, right before the surgery. SOCIAL HISTORY: Patient used to smoke one pack per day for 60 years quit about three months ago. Denies any drinking or recreational drug use. Patient lives alone; however, patient's daughters live close by and checks on her regularly. Patient walks with a cane. FAMILY HISTORY: Admits to hypertension and diabetes. REVIEW OF SYSTEMS: GENERAL: Patient admits to roughly 40 pound weight loss since the surgery. Denies any sick contacts. Admits to recent admission to the hospital. Denies any fever or chills. HEENT: Denies any changes with vision, smell, hearing, or taste. However, patient does have a chronic cough and chronic sputum production. CARDIOVASCULAR: Patient does admit to chest pressure below the breast almost daily lasting for about an hour and does not seem to get better or worse with anything. Admits to trouble breathing. PULMONARY: Patient does have COPD on two liters of oxygen 24 hours a day since surgery. She also has a history of lung cancer status post resection with right upper lobe lobectomy. GI: Denies any abdominal pain, nausea, vomiting, diarrhea, or constipation. MUSCULOSKELETAL: Denies any pain any where currently. However, patient does have chronic pain. ENDOCRINE: Denies any excessive cold; however, she feels hot all the time per patient. She does have a history of hypothyroidism, and does have a history of insulin-dependent type 2 diabetes. HEMATOLOGY/ONCOLOGY: Denies any easy bruising or any bleeding anywhere. NEUROLOGICAL: Denies any weakness on any one side of her body. Denies any changes with sensation. Denies any headache. PSYCHIATRIC: Denies anxiety or depression currently; however, she does take medication for anxiety. SKIN: Patient has noticed lower extremity swelling recently. PHYSICAL EXAMINATION: VITAL SIGNS: Temperature 97.5, pulse 95, respirations 18, blood pressure 136/58, oxygen was saturating at 97% on two liters nasal cannula. GENERAL: Patient is a morbidly obese, elderly female who was alert, awake, oriented times three, does not appear to be in distress lying comfortably in bed with head elevated at 45 degree angle. HEENT: Normocephalic, atraumatic. Extraocular motors are intact. Mucous membranes moist. NECK: Supple. No neck lymphadenopathy. CARDIOVASCULAR: Regular rate and rhythm, S1, S2. Difficult to auscultate due to body habitus on increased anteroposterior (AP) diameter. LUNGS: Bilateral basilar rales worse on the right side. ABDOMEN: Positive bowel sounds. Soft, nontender, nondistended. No peritoneal signs. No ecchymosis. EXTREMITIES: Trace pitting edema bilaterally. SKIN: Warm and dry. NEURO: Cranial nerves II-XII intact. No focal neurological deficit. LABS: WBC 8.8, hemoglobin 11.3, hematocrit 34.4 with platelet count of 267, MCV of 92.8. Sodium 141, potassium 4.6, chloride 103, bicarbonate 30, BUN 21, creatinine 1.36 , GFR 40.9, fasting glucose 174, calcium 8.7, total bilirubin 0.3, direct bilirubin less than 0.1, AST 24, ALT 23, alkaline phosphatase 147, CK 43, CK-MB 1.9, troponin less than 0.02, BNP was 76.9, total protein 6.7, lipase was 84. PT 13.4, INR 1.01, PTT 27.3. Blood culture times two are pending. Patient had a 2-view chest x-ray in the emergency room which shows diffuse chronic changes cannot exclude superimposed infiltrate. Patient had a CT angiogram of the chest which shows diffuse chronic post surgical changes, small area of consolidation at the right lower lobe and right upper lobe with patchy scattered infiltrates and atelectasis and adenopathy are identified, but improved when compared to 06/24/2016. ASSESSMENT AND PLAN: 70-year-old female with multiple comorbidities, most significantly her systolic congestive heart failure (CHF) with ejection fraction of 35%, persistent lung consolidation at the right lower lobe, lung cancer status post right upper lobe lobectomy with Dr. Alexander in May 2016, chronic obstructive pulmonary disease (COPD) on two liters of nasal cannula oxygen 24 hours a day at home, obstructive sleep apnea on continuous positive airway pressure (CPAP) at night, coronary artery disease, insulin-dependent type 2 diabetes, hypertension, presented with: 1. Chest pain and shortness of breath. At this point, chest pain etiology is unclear, possibly secondary to angina. Trouble breathing; however, was more likely secondary to CHF exacerbation. Patient does have an ejection fraction of 35% back in June 2016. Her right lower extremity also appears to be more swollen per patient, therefore, we will start patient on Lasix 40 mg IV twice a day and monitor patient's intake and output and restrict her fluid at two liters every 24 hours and continue to monitor patient. In addition, patient does have chronic left lower lobe consolidation which appears to be improved compared to June from CT angiogram of the chest. We will continue to monitor. We will obtain sputum culture. Patient does not have any white count or fever or chills currently. We will start antibiotic if needed. Patient did receive one dose of Levaquin in the emergency room. 2. CHF exacerbation. Start patient on Lasix 40 mg twice a day IV and we will hold patient's metolazone 2.5 mg by mouth weekly for now and continue to monitor patient's intake and output. Patient's BNP was low; however, possibly secondary to obesity. 3. Treated hospital-associated pneumonia with chronic right lower lobe infiltrate. Continue to monitor. Patient does not appear to have acute infection at this point. There is no white count, no fever, no chills, and no coughing per patient. 4. Iron deficiency anemia with hemoglobin of 11.3, hematocrit of 92.8. We will repeat an iron panel, B12 and folate in the morning and continue to monitor patient. We will check for fecal occult blood. 5. Hyperglycemia with history of insulin-dependent type 2 diabetes. Continue patient's home Lantus 55 units subcutaneously every morning and 50 units subcutaneously at bedtime as well as insulin sliding-scale and fingersticks. Continue to monitor the patient. 6. COPD on two liters of oxygen 24 hours a day at home. Continue patient on oxygen and titrate between 88% and 92%, and continue home inhalers with DuoNebs every six hours and every 2 hours as needed. 7. Elevated alkaline phosphatase, which was 147. We will obtain a GGT to rule out hepatobiliary versus bone metastasis source. 8. Malnutrition with albumin of 2.8. We will supplement as needed. 9. Coronary artery disease. Continue to monitor. Patient does follows with cardiology outpatient. Last time patient seen Dr. Esposito was over a year ago per patient. However, she did receive a cardiac stress test before the surgery in May. We will need obtain medical record for clearance. 10. Hyperlipidemia. Continue home statin. 11. Anxiety and mood disorder. Continue home medications. 12. Obstructive sleep apnea on CPAP at night. Patient may use her home CPAP. If she cannot bring it, we will provide CPAP in the hospital. 13. Hypothyroidism. We will check TSH. Continue home dose for now. 14. History of pericardial effusion back in June, which was only a small amount. At this point, patient's blood pressure is stable. Continue to monitor. 15. History of gout. Continue home medications. 16. Deep vein thrombosis (DVT) prophylaxis. Heparin subcutaneously every eight hours. DISPOSITION: Patient does have chronic chest pain which lasted for about a year. Patient came to the hospital due to daughter making her come in; however, she does have increased trouble breathing. At this point, she does have increased swelling in the lower extremity. Therefore, she likely has CHF exacerbation. Started the patient on IV Lasix; however, her kidney function appears to be worse than her baseline. Currently creatinine is 1.36, baseline is around 1.0, etiology is unclear. Continue Lasix for now due to possible cardiac-renal syndrome and continue to monitor patient. Patient has been discussed with attending doctor, Dr. Lott. My preceptor for this patient encounter was Dr. Ezekiel Lott. The preceptor was physically present in the building during the encounter and was fully available. As needed, all aspects of the patient interview, examination, medical decision making process, and medical care plan development were reviewed and approved by the preceptor. The preceptor is aware and concurs with the plan as stated in the body of this note and will attest to such by his cosignature. ROMERO
[2016-07-30] MEDS: SPIRONOLACTONE 25 MG TAB PO SCH (08:57)
[2016-07-30] MEDS: LEVEMIR (INSULIN DETEMIR) 1 UNITS/0.01ML SC SCH ×2 (08:57→21:35)
[2016-07-30] MEDS: HumaLOG INSULIN (NovoLOG) PER UNIT SC SCH ×4 (08:58→21:36)
[2016-07-30] MEDS: GABAPENTIN 300 MG CAP PO SCH ×4 (08:58→21:37)
[2016-07-30] MEDS: SENOKOT S TAB PO SCH ×2 (08:58→21:36)
[2016-07-30] MEDS: VENLAFAXINE 37.5 MG TAB PO SCH ×2 (08:58→21:37)
[2016-07-30] MEDS: LISINOPRIL 10 MG TAB PO SCH (08:58)
[2016-07-30] MEDS: DULoxetine 30 MG CAP (CYMBALTA) PO SCH (08:58)
[2016-07-30] MEDS: PANTOPRAZOLE 40MG TAB (PROTONIX) PO SCH (08:58)
[2016-07-30] MEDS: ASPIRIN 81 MG ENTERIC TAB PO SCH (08:59)
[2016-07-30] MEDS: CALCIUM/VITAMIN D 500 MG TAB PO SCH (08:59)
[2016-07-30] MEDS: LORazepam 0.5 MG TAB PO SCH ×2 (08:59→21:37)
[2016-07-30] MEDS: DIGOXIN 0.25 MG TAB PO SCH (08:59)
[2016-07-30] MEDS: FUROSEMIDE 40 MG/4 ML VIAL (J1940) IV SCH ×2 (08:59→17:28)
[2016-07-30] MEDS: FERROUS SULFATE 325MG TAB PO SCH (08:59)
[2016-07-30] MEDS ORDERED: FAMOTIDINE 20 MG TAB PO SCH (09:00)
--- NOTE | 2016-07-30 10:21 | ECGEPIP ---
Stationary ECG Study [facility] - ED Test Date: 2016-07-29 Pat Name: PINEDA VALDERRAMA Department: Room: - Gender: F Sterile Processing Technologist: julio césar : 1945 Requested By: Yassine Flood Order Number: [id number] Reading MD: Yassine Le Measurements Intervals [place] Rate: 92 P: 56 UT: 159 QRS: 63 QRSD: 81 T: 40 QT: 302 QTc: 374 Interpretive Statements SINUS RHYTHM WITH OCCASIONAL SUPRAVENTRICULAR PREMATURE COMPLEXES LAE NONSPECIFIC T-WAVE ABNORMALITY Electronically Signed On 07-30-2016 10:21:21 EDT by Yassine Le
--- NOTE | 2016-07-30 10:29 | ECGEPIP ---
Stationary ECG Study [facility] - ED Test Date: 2016-07-29 Pat Name: PINEDA VALDERRAMA Department: Room: [place] [address] Gender: F Solvent Station Attendant: CaiB: 1945 Requested By: MICHEAL Fernandez Order Number: [id number] Reading MD: Yassine Le Measurements Intervals [place] Rate: 83 P: 42 WI: 171 QRS: 49 QRSD: 83 T: 27 QT: 326 QTc: 384 Interpretive Statements SINUS RHYTHM WITH OCCASIONAL SUPRAVENTRICULAR PREMATURE COMPLEXES LAE LOW QRS VOLTAGE IN PRECORDIAL LEADS SIMILAR TO PRIOR ON SAME DATE Electronically Signed On 07-30-2016 10:29:01 EDT by Yassine Le
[2016-07-30 11:50] VITALS: BP 148/64
[2016-07-30 16:00] VITALS: BP 129/71
--- NOTE | 2016-07-30 17:00 | IPN ---
DATE: 07/30/2016 Patient seen and examined. No acute events overnight. Reported improved respiration. Denies any chest pain, pressure, discomfort. Denies any abdominal pain. Reported right lower foot pain and mild swelling. Denies any fevers or chills. VITAL SIGNS: Temperature 98.2, pulse 89, respirations 22, blood pressure 148/64, pulse oximetry 97% on 2 liters nasal cannula. LABORATORY DATA: WBC 5.5, hemoglobin and hematocrit 10.6 over 32.3, platelets 228. Chemistry: Sodium 140, potassium 4.6, chloride 101, bicarbonate 32, BUN 19, creatinine 1.24. Cardiac enzymes negative. C-reactive protein 1.01. PHYSICAL EXAMINATION: GENERAL: Patient morbidly obese, elderly, alert and oriented times three, in no acute distress. HEENT: Normocephalic, atraumatic. NECK: Supple. CARDIAC: Regular rate and rhythm. Distant heart sounds. PULMONARY: Bibasilar rales, worse on the right. ABDOMEN: Soft, nontender, nondistended. Positive bowel sounds. EXTREMITIES: Trace edema bilateral lower extremities. NEUROLOGIC: No focal deficit. ASSESSMENT AND PLAN: This is a 70-year-old female patient with multiple comorbidities and underlying medical history of systolic congestive heart failure with ejection fraction of 35%, persistent lung consolidation right lower lobe, lung cancer - status post right upper lobectomy with Dr. Alexander May 2016, chronic obstructive pulmonary disease (COPD), on 2 liters of oxygen at home, obstructive sleep apnea - on continuous positive airway pressure (CPAP) at night, coronary artery disease, insulin-dependent type 2 diabetes, hypertension, presented with chest pain and shortness of breath. Problems: 1. Chest pain and shortness of breath. Likely secondary to acute systolic congestive heart failure (CHF) exacerbation. Ejection fraction 35%. BNP possibly low secondary to obesity. Continue Lasix intravenously (IV) twice a day 40 mg, strict intake and output, daily weight. CT angio appreciated, negative for pulmonary embolism (PE). Will continue to follow. Cardiac enzymes appreciated. Telemetry monitoring. 2. Questionable hospital-associated bacterial pneumonia recently treated. CT angio appreciated. Chronic right lower lobe infiltrates. Continue to monitor. Followup C-reactive protein. Patient continued on Levaquin. Continue to monitor. Followup cultures. 3. Iron deficiency anemia. Followup hemoglobin and hematocrit. Followup anemia workup. Transfuse as needed. 4. Hyperglycemia with insulin-dependent type 2 diabetes. Continue basal-bolus insulin. Adjust as needed. Follow fingersticks. 5. Chronic obstructive pulmonary disease with chronic hypoxia. Patient currently not having any significant wheeze. Oxygen supplementation. Continue nebulizer treatments and inhalers. 6. Alkaline phosphatase elevation. Continue to monitor. Will repeat levels. 7. Protein-calorie malnutrition. Supplementation as needed. Continue to monitor. 8. Coronary artery disease. The patient follows with Dr. Esposito. Cardiac enzymes appreciated. Telemetry monitoring. Continue aspirin and statin and lisinopril, spironolactone, Lasix. 9. Dyslipidemia. Continue statin. 10. Anxiety and mood disorder. Continue current medications. 11. Obstructive sleep apnea. On continuous positive airway pressure (CPAP) at night. Continue CPAP. 12. Hypothyroidism. Continue Synthroid. Thyroid-stimulating hormone (TSH) appreciated. 13. History of gout. Continue home medications. 14. Deep vein thrombosis (DVT) prophylaxis. Heparin subcutaneously. DISPOSITION: Pending clinical improvement, physical therapy, followup C-reactive protein and cultures.
[2016-07-30] MEDS: ACETAMINOPHEN TAB 650MG DOSE (2X325MG) PO PRN (17:28)
--- NOTE | 2016-07-30 18:09 | REP ---
Clinical: Right lower extremity pain and swelling . Technique: Hughes scale and color Doppler evaluation using linear high frequency transducer. Findings: Ultrasound examination of the right lower extremity deep venous structures from the common femoral vein to the popliteal vein demonstrates normal compressibility flow and wave patterns in response to respiration and augmentation. There is no evidence for deep venous thrombosis. Impression: No evidence for deep venous thrombosis. Signed by Ki Garcia MD 07/30/2016 06:00 P
[2016-07-30] MEDS ORDERED: LevoFLOXacin IV 500 MG in APPROPRIATE DILUENT 1 EA IV SCH (19:00)
[2016-07-30 19:59] VITALS: BP 146/66
[2016-07-30] MEDS: traZODone 50 MG TAB PO SCH (21:37)
[2016-07-30] MEDS: ALLOPURINOL 100 MG TAB PO SCH (21:37)
[2016-07-30] MEDS: ATORVASTATIN 20 MG TAB PO SCH (21:37)
[2016-07-31 00:25] VITALS: BP 118/51
[2016-07-31 04:24] VITALS: BP 119/53
[2016-07-31 06:11] LABS: BASO % 0.5 % (0.0-1.0); EOS # 0.3 K/mm3 (0.0-0.50); EOS % 5.7 % (0.0-3.0); LARGE UNSTAINED CELL # 0.2 K/mm3 (0.0-0.4); LARGE UNSTAINED CELL % 2.7 % (0.0-4.0); LYMPH # 1.3 K/mm3 (1.5-4.5); LYMPH % 19.3 % (24.0-44.0); MEAN CORPUSCULAR HGB CONC 32.9 g/dl (32.0-36.5); MEAN CORPUSCULAR VOLUME 91.4 fl (80.0-96.0); MONO # 0.5 K/mm3 (0.0-0.8); MONO % 7.7 % (0.0-5.0); NEUTROPHILS # 3.8 K/mm3 (1.8-7.7); NEUTROPHILS % 64.1 % (36.0-66.0); PLATELET COUNT, AUTOMATED 228 k/mm3 (150-450); RED CELL DISTRIBUTION WIDTH 17.4 % (11.5-14.5); WHITE BLOOD COUNT 5.9 K/mm3 (4.0-10.0)
[2016-07-31] MEDS: SLF 3 ML SYR IV SCH (06:18)
[2016-07-31] MEDS: LEVOTHYROXINE 0.05 MG TAB (50 MCG) PO SCH (06:18)
[2016-07-31] MEDS: HEPARIN SOD (PORCINE) 5000 UNITS/ML VIAL SC SCH (06:18)
[2016-07-31 06:35] LABS: ALBUMIN 2.5 GM/DL (3.2-5.2); ALBUMIN/GLOBULIN RATIO 0.74 (1.00-1.93); ALKALINE PHOSPHATASE 122 U/L (45-117); ALT/SGPT 21 U/L (12-78); ANION GAP 6 MEQ/L (8-16); AST/SGOT 17 U/L (15-37); BILIRUBIN,DIRECT < 0.1 MG/DL (0.0-0.2); BILIRUBIN,TOTAL 0.2 MG/DL (0.2-1.0); BLOOD UREA NITROGEN 25 MG/DL (7-18); CALCIUM LEVEL 8.6 MG/DL (8.8-10.2); CARBON DIOXIDE LEVEL 33 MEQ/L (21-32); CHLORIDE LEVEL 101 MEQ/L (98-107); CREATININE FOR GFR 1.36 MG/DL (0.55-1.02); GLOMERULAR FILTRATION RATE 40.9 (>39); GLUCOSE, FASTING 156 MG/DL (83-110); POTASSIUM SERUM 4.2 MEQ/L (3.5-5.1); SODIUM LEVEL 140 MEQ/L (136-145); TOTAL PROTEIN 5.9 GM/DL (6.4-8.2)
[2016-07-31] MEDS: HumaLOG INSULIN (NovoLOG) PER UNIT SC SCH (07:35)
[2016-07-31] MEDS: SPIRONOLACTONE 25 MG TAB PO SCH (07:36)
[2016-07-31 07:37] VITALS: BP 121/56
[2016-07-31] MEDS: LISINOPRIL 10 MG TAB PO SCH (07:37)
[2016-07-31 07:40] VITALS: BP 121/56
[2016-07-31] MEDS: IPRATROPIUM 0.5MG/ALBUTEROL 2.5MG INH SOL UD 3ML (DUONEB)(J7620) NEB SCH (07:52)
[2016-07-31] MEDS: ADVAIR DISKUS 500/50 INH PWD INH SCH (07:52)
[2016-07-31] MEDS: TIOTROPIUM INHALER/CAPSULE (SPIRIVA) INH SCH (07:52)
[2016-07-31] MEDS ORDERED: FUROSEMIDE 40 MG TAB PO SCH (09:00)
[2016-07-31] MEDS: GABAPENTIN 300 MG CAP PO SCH (09:13)
[2016-07-31] MEDS: FERROUS SULFATE 325MG TAB PO SCH (09:14)
[2016-07-31] MEDS: LORazepam 0.5 MG TAB PO SCH (09:14)
[2016-07-31] MEDS: VENLAFAXINE 37.5 MG TAB PO SCH (09:14)
[2016-07-31] MEDS: DIGOXIN 0.25 MG TAB PO SCH (09:14)
[2016-07-31] MEDS: ASPIRIN 81 MG ENTERIC TAB PO SCH (09:15)
[2016-07-31] MEDS: DULoxetine 30 MG CAP (CYMBALTA) PO SCH (09:15)
[2016-07-31] MEDS: CALCIUM/VITAMIN D 500 MG TAB PO SCH (09:15)
[2016-07-31] MEDS: SENOKOT S TAB PO SCH (09:15)
[2016-07-31] MEDS: PANTOPRAZOLE 40MG TAB (PROTONIX) PO SCH (09:15)
[2016-07-31] MEDS: LEVEMIR (INSULIN DETEMIR) 1 UNITS/0.01ML SC SCH (09:15)
[2016-07-31 10:18] LABS: FOLATE 23.5 NG/ML (>5.4); VITAMIN B12 LEVEL 448 PG/ML (247-911)
[2016-07-31] MEDS ORDERED: LEVO500T32 PO (11:37)
--- NOTE | 2016-07-31 15:51 | DSES ---
DATE OF ADMISSION: 07/30/2016 DATE OF DISCHARGE: 07/31/2016 FINAL DIAGNOSES: 1. Acute congestive heart failure (CHF) exacerbation. 2. Questionable hospital-associated bacterial pneumonia. 3. History of iron deficiency anemia. 4. Hyperglycemia with insulin-dependent type 2 diabetes. 5. History of chronic obstructive pulmonary disease (COPD). 6. Chronic hypoxia. 7. Coronary artery disease. 8. Dyslipidemia. 9. Anxiety 10. Mood disorder. 11. History of obstructive sleep apnea. 12. Obesity. 13. Hypothyroidism. 14. History of gout. ASSOCIATE CURATOR: Dr. Esposito. CASINO FLOOR WALKER: Dr. Daley. PHARMACY INNOVATION ASSISTANT: Dr. Coulter. HISTORY OF PRESENT ILLNESS: This is a 70-year-old male patient with underlying medical history of systolic congestive heart failure with ejection fraction of 35%, chronic obstructive pulmonary disease (COPD) on 2 liters oxygen nasal cannula 24 hours a day at home, recent lung cancer adenocarcinoma status post resection by Dr. Alexander, right upper lobectomy, hypertension, chronic kidney disease (CKD), iron deficiency anemia, persistent consolidation of right lower lobe, insulin-dependent type 2 diabetes, anxiety, mood disorder, obstructive sleep apnea on home continuous positive airway pressure (CPAP) at night, presented with chest pain, trouble breathing. Per patient, chest pain started in the morning on the day of admission while patient was sitting and watching TV. She described a sudden pain under the breast and it felt like an elephant was sitting on her chest. This lasted about one hour and did not get better or worse. Also reported worsening lower extremity swelling. Subsequently, was made to come to the hospital by the patient's daughter. Patient denies any fever, chills, any abdominal pain, nausea, vomiting, constipation. No urinary complaint. Recently admitted to the hospital and treated for chronic obstructive pulmonary disease (COPD) exacerbation and also healthcare-associated bacterial pneumonia. HOSPITAL COURSE: Patient was admitted to the hospital, given intravenous (IV) antibiotics. Culture was sent. Respiratory panel was sent. CT angiogram was done showing no pulmonary embolism (PE) and right lower lobe consolidation that was no significant change from previous. Blood culture was sent and was negative. Respiratory panel was negative. Patient was diuresed with Lasix. Cardiac enzymes were sent. Telemetry monitoring was done. C-reactive protein was followed. Dr. Alexander, thoracic surgeon, was informed. Strict intake and output (I and O) were observed. Daily weight was observed. Patient responded appropriately to diuretics. Reported respiration back to baseline. Oxygen supplementation was continued and currently, she feels comfortable and ready for discharge for further care as outpatient. VITAL SIGNS: Temperature 97.8, pulse 85, respirations 22, blood pressure 121/56, pulse oximetry 93% on 2 liters nasal cannula. LABORATORY: WBC 5.9, hemoglobin and hematocrit (H and H) 10 and 30.6, platelets 228. Chemistry: Sodium 140, potassium 4.2, chloride 101, bicarbonate 33, BUN 25, creatinine 1.36. Cardiac enzymes negative times three. DISCHARGE MEDICATIONS: - Levaquin 500 mg by mouth daily for four more days CONTINUE HOME MEDICATIONS: - ProAir inhalations four times a day as needed - allopurinol 100 mg by mouth at bedtime - aspirin 81 mg by mouth daily - Lipitor 40 mg by mouth at bedtime - calcium with vitamin D 1 tablet by mouth daily - digoxin 0.25 mg by mouth daily - Cymbalta 30 mg by mouth daily - Nexium 40 mg by mouth daily - ferrous sulfate 325 mg by mouth daily - Flonase inhalation twice a day - Lasix 40 mg in the morning and 20 mg at night - gabapentin 300 mg by mouth four times a day - Lantus insulin 55 units every morning and 50 units nightly - mealtime insulin according to protocol - Xyzal 5 mg by mouth daily - Synthroid 50 mcg by mouth daily - lisinopril 10 mg by mouth daily - Ativan 0.5 mg by mouth twice a day - magnesium 800 mg by mouth three times a day - metolazone 2.5 mg by mouth once a week - nitroglycerine sublingual 0.4 mg as needed - potassium chloride 30 mg by mouth three times a day - ranitidine 150 mg by mouth daily - Advair inhalation 500/50 mcg twice a day - spironolactone 12.5 mg by mouth daily - Spiriva inhalation 18 mcg daily - tramadol 50 mg by mouth four times a day as needed - trazodone 150 mg by mouth at bedtime - venlafaxine 75 mg by mouth twice a day - vitamin D 50,000 units by mouth once a week DISCHARGE INSTRUCTIONS: Patient instructed to follow up with candle molder hand in 1-2 weeks and primary care provider in seven days. Daily weight. Return to the hospital if symptoms worsen.
== END 2016-07-31 14:46 | disposition home health service (06) | DRG 291 ==
LOC: EDBD 13:58 → M ED 15:36 → M ED INP 20:40 → M PCU 22:13 → OBSVTOIN 07-30 13:58
PROVIDERS: ADMIT Internal Medicine; ATTEND Hospitalist
DX: I13.0 Hypertensive heart and chronic kidney disease with heart failure and stage 1 through stage 4 chronic kidney disease, or unspecified chronic kidney disease (principal); I50.23 Acute on chronic systolic (congestive) heart failure; J15.9 Unspecified bacterial pneumonia; E46 Unspecified protein-calorie malnutrition; J44.9 Chronic obstructive pulmonary disease, unspecified; I25.10 Atherosclerotic heart disease of native coronary artery without angina pectoris; M10.9 Gout, unspecified; E03.9 Hypothyroidism, unspecified; G47.33 Obstructive sleep apnea (adult) (pediatric); F41.9 Anxiety disorder, unspecified; D50.9 Iron deficiency anemia, unspecified; E66.9 Obesity, unspecified; Z85.118 Personal history of other malignant neoplasm of bronchus and lung; Z79.82 Long term (current) use of aspirin; Z79.899 Other long term (current) drug therapy; Z79.4 Long term (current) use of insulin; N18.9 Chronic kidney disease, unspecified; E11.65 Type 2 diabetes mellitus with hyperglycemia; F39 Unspecified mood [affective] disorder

== ENCOUNTER → 2016-08-27 | Outpatient (REF) | payer MEDICARE, MEDICAID ==
[~2016-08-27] MED LIST changes: +GABA-282 PO; +LEVO500T32 PO
[2016-08-27 12:49] LABS: BASO % 0.5 % (0.0-1.0); EOS # 0.4 K/mm3 (0.0-0.50); EOS % 3.9 % (0.0-3.0); LARGE UNSTAINED CELL # 0.1 K/mm3 (0.0-0.4); LARGE UNSTAINED CELL % 1.1 % (0.0-4.0); LYMPH # 1.1 K/mm3 (1.5-4.5); LYMPH % 10.3 % (24.0-44.0); MEAN CORPUSCULAR HEMOGLOBIN 28.9 pg (27.0-33.0); MEAN CORPUSCULAR HGB CONC 30.5 g/dl (32.0-36.5); MEAN CORPUSCULAR VOLUME 94.5 fl (80.0-96.0); MONO # 0.7 K/mm3 (0.0-0.8); MONO % 6.9 % (0.0-5.0); NEUTROPHILS # 7.4 K/mm3 (1.8-7.7); NEUTROPHILS % 77.3 % (36.0-66.0); PLATELET COUNT, AUTOMATED 331 k/mm3 (150-450); RED CELL DISTRIBUTION WIDTH 15.2 % (11.5-14.5); WHITE BLOOD COUNT 9.5 K/mm3 (4.0-10.0)
[2016-08-27 13:20] LABS: ALBUMIN 2.8 GM/DL (3.2-5.2); ALBUMIN/GLOBULIN RATIO 0.85 (1.00-1.93); ALKALINE PHOSPHATASE 144 U/L (45-117); ALT/SGPT 17 U/L (12-78); ANION GAP 8 MEQ/L (8-16); AST/SGOT 14 U/L (15-37); BILIRUBIN,TOTAL 0.3 MG/DL (0.2-1.0); BLOOD UREA NITROGEN 15 MG/DL (7-18); CALCIUM LEVEL 8.4 MG/DL (8.8-10.2); CARBON DIOXIDE LEVEL 31 MEQ/L (21-32); CHLORIDE LEVEL 95 MEQ/L (98-107); CREATININE FOR GFR 0.96 MG/DL (0.55-1.02); GLOMERULAR FILTRATION RATE > 60.0 (>39); GLUCOSE, FASTING 320 MG/DL (83-110); SODIUM LEVEL 134 MEQ/L (136-145); TOTAL PROTEIN 6.1 GM/DL (6.4-8.2)
[2016-08-27 13:37] LABS: POTASSIUM SERUM 5.3 MEQ/L (3.5-5.1)
== END ==
LOC: M LABDRWAD 12:09
PROVIDERS: ATTEND Family Medicine
DX: E03.9 Hypothyroidism, unspecified (principal); D64.9 Anemia, unspecified

== ENCOUNTER → 2016-08-30 | Outpatient (REF) | payer MEDICARE, MEDICAID ==
[2016-08-30 19:16] LABS: PERCENT SATURATION 15.6 % (13.2-37.4)
== END ==
LOC: M LAB REF 16:59
PROVIDERS: ATTEND Internal Medicine Nephrology
DX: D64.9 Anemia, unspecified (principal); E03.9 Hypothyroidism, unspecified; I10 Essential (primary) hypertension; E11.65 Type 2 diabetes mellitus with hyperglycemia

== ENCOUNTER → 2016-08-30 | Outpatient (REF) | payer MEDICARE, MEDICAID ==
[2016-08-30 13:02] LABS: BASO # 0.1 K/mm3 (0.0-0.2); BASO % 0.6 % (0.0-1.0); EOS # 0.4 K/mm3 (0.0-0.50); LARGE UNSTAINED CELL # 0.1 K/mm3 (0.0-0.4); LYMPH # 0.9 K/mm3 (1.5-4.5); LYMPH % 8.6 % (24.0-44.0); MEAN CORPUSCULAR HEMOGLOBIN 29.6 pg (27.0-33.0); MEAN CORPUSCULAR HGB CONC 31.6 g/dl (32.0-36.5); MEAN CORPUSCULAR VOLUME 93.8 fl (80.0-96.0); MONO # 0.7 K/mm3 (0.0-0.8); NEUTROPHILS # 6.9 K/mm3 (1.8-7.7); NEUTROPHILS % 76.7 % (36.0-66.0); PLATELET COUNT, AUTOMATED 319 k/mm3 (150-450)
[2016-08-30 13:12] LABS: ALBUMIN 2.7 GM/DL (3.2-5.2); ALBUMIN/GLOBULIN RATIO 0.77 (1.00-1.93); ALKALINE PHOSPHATASE 132 U/L (45-117); ALT/SGPT 15 U/L (12-78); ANION GAP 6 MEQ/L (8-16); AST/SGOT 7 U/L (15-37); BILIRUBIN,TOTAL 0.3 MG/DL (0.2-1.0); BLOOD UREA NITROGEN 13 MG/DL (7-18); CALCIUM LEVEL 8.1 MG/DL (8.8-10.2); CARBON DIOXIDE LEVEL 34 MEQ/L (21-32); CHLORIDE LEVEL 96 MEQ/L (98-107); CHOLESTEROL LEVEL 143 MG/DL (<200); FREE T4 1.16 NG/DL (0.76-1.46); GLOMERULAR FILTRATION RATE > 60.0 (>39); GLUCOSE, FASTING 295 MG/DL (83-110); POTASSIUM SERUM 4.5 MEQ/L (3.5-5.1); SODIUM LEVEL 136 MEQ/L (136-145); TOTAL PROTEIN 6.2 GM/DL (6.4-8.2); TRIGLYCERIDES LEVEL 253 MG/DL (<150)
== END ==
LOC: M LABDRWAD 12:24
DX: E03.9 Hypothyroidism, unspecified (principal); I10 Essential (primary) hypertension; E11.65 Type 2 diabetes mellitus with hyperglycemia; Z13.0 Encounter for screening for diseases of the blood and blood-forming organs and certain disorders involving the immune mechanism

== ENCOUNTER 2016-09-03 13:41 | Emergency (ER) | payer MEDICARE, MEDICAID ==
[~2016-09-03] VITALS: Ht 167.6 cm; Wt 106.6 kg
[2016-09-03 14:29] LABS: BASO # 0.1 K/mm3 (0.0-0.2); BASO % 0.6 % (0.0-1.0); EOS # 0.4 K/mm3 (0.0-0.50); EOS % 2.9 % (0.0-3.0); LARGE UNSTAINED CELL # 0.2 K/mm3 (0.0-0.4); LARGE UNSTAINED CELL % 1.2 % (0.0-4.0); LYMPH # 1.4 K/mm3 (1.5-4.5); LYMPH % 9.9 % (24.0-44.0); MEAN CORPUSCULAR HEMOGLOBIN 29.2 pg (27.0-33.0); MEAN CORPUSCULAR HGB CONC 32.3 g/dl (32.0-36.5); MEAN CORPUSCULAR VOLUME 90.6 fl (80.0-96.0); MONO # 0.6 K/mm3 (0.0-0.8); NEUTROPHILS # 10.2 K/mm3 (1.8-7.7); NEUTROPHILS % 80.4 % (36.0-66.0); PLATELET COUNT, AUTOMATED 354 k/mm3 (150-450); WHITE BLOOD COUNT 12.6 K/mm3 (4.0-10.0)
[2016-09-03] MEDS ORDERED: traMADol 50 MG TAB PO ONE (14:30)
[2016-09-03 14:47] LABS: ALBUMIN 2.9 GM/DL (3.2-5.2); ALBUMIN/GLOBULIN RATIO 0.69 (1.00-1.93); ALKALINE PHOSPHATASE 135 U/L (45-117); ALT/SGPT 12 U/L (12-78); ANION GAP 7 MEQ/L (8-16); AST/SGOT 6 U/L (15-37); BILIRUBIN,DIRECT < 0.1 MG/DL (0.0-0.2); BILIRUBIN,TOTAL 0.2 MG/DL (0.2-1.0); BLOOD UREA NITROGEN 18 MG/DL (7-18); CALCIUM LEVEL 8.9 MG/DL (8.8-10.2); CARBON DIOXIDE LEVEL 31 MEQ/L (21-32); CHLORIDE LEVEL 97 MEQ/L (98-107); CREATININE FOR GFR 1.01 MG/DL (0.55-1.02); GLOMERULAR FILTRATION RATE 57.5 (>39); GLUCOSE, FASTING 175 MG/DL (83-110); POTASSIUM SERUM 4.6 MEQ/L (3.5-5.1); SODIUM LEVEL 135 MEQ/L (136-145); TOTAL PROTEIN 7.1 GM/DL (6.4-8.2)
[2016-09-03 15:00] LABS: DIGOXIN LEVEL 0.1 NG/ML (0.5-2.0)
--- NOTE | 2016-09-03 15:01 | REP ---
CHEST, TWO VIEWS: HISTORY: Chest pain. COMPARISON: 07/29/2016 There is elevation of the right hemidiaphragm. A diffuse increase in interstitial markings is present in the lungs consistent with chronic interstitial fibrosis. The heart is normal in size. The pulmonary vasculature is normal in appearance. The bony structure is intact. IMPRESSION: Chronic interstitial fibrosis. Signed by Bassam Cook MD 09/03/2016 03:03 P
[2016-09-03] MEDS ORDERED: ISOVUE-370 76% 100ML VIAL (Q9967) As Ordered ONE (15:11)
--- NOTE | 2016-09-03 16:25 | REP ---
CT ANGIO CHEST: HISTORY: Chest pain. CONTRAST: Isovue-370, 75 mL COMPARISON: 07/29/2016 There are no filling defects in the main, right and left pulmonary arteries or their branches. An infiltrate is present in the right upper lobe unchanged compared to the previous study. An infiltrate is present in the right lower lobe, decreased compared to the previous study. A small area of infiltrate is present in the left lower lobe that is decreased compared to the previous study. Areas of scarring are present throughout the lungs. Bullae are present in the left lung. There is no pleural effusion. Lymph nodes are present in the mediastinum, unchanged compared to the previous study. Atherosclerotic calcification is present in the thoracic aorta. Degenerative change is present in the spine. IMPRESSION: 1. There is no pulmonary embolism. 2. Right upper lobe infiltrate, unchanged compared to the previous study. 3. Bibasilar infiltrates decreased compared to the previous study. Signed by Bassam Cook MD 09/03/2016 04:27 P
[2016-09-03 20:44] VITALS: BP 130/60
--- NOTE | 2016-09-04 08:10 | ECGEPIP ---
Stationary ECG Study [facility] - ED Test Date: 2016-09-03 Pat Name: PINEDA VALDERRAMA Department: Room: - Gender: F [employer] Teacher: julio césar : 1945 Requested By: Yassine Flood Order Number: [id number] Reading MD: Thea Pradhan Measurements Intervals [place] Rate: 84 P: 51 MT: 165 QRS: 59 QRSD: 73 T: 48 QT: 336 QTc: 397 Interpretive Statements SINUS RHYTHM DECREASED ECTOPY 07/29/16 Electronically Signed On 09-04-2016 8:09:41 EDT by Thea Pradhan
--- NOTE | 2016-09-04 14:37 | ECGEPIP ---
Stationary ECG Study [facility] - ED Test Date: 2016-09-03 Pat Name: PINEDA VALDERRAMA Department: Room: - Gender: F Sheep Boner: mattie : 1945 Requested By: MICHEAL Fernandez Order Number: [id number] Reading MD: Yassine Le Measurements Intervals [place] Rate: 79 P: 36 NM: 170 QRS: 60 QRSD: 81 T: 47 QT: 358 QTc: 411 Interpretive Statements SINUS RHYTHM Electronically Signed On 09-04-2016 14:37:07 EDT by Yassine Le
== END 2016-09-03 20:56 | disposition home or self-care (01) ==
LOC: EDBD 13:41 → M ED 15:34
DX: R07.9 Chest pain, unspecified (principal); I25.10 Atherosclerotic heart disease of native coronary artery without angina pectoris; E11.9 Type 2 diabetes mellitus without complications; J44.9 Chronic obstructive pulmonary disease, unspecified; K22.70 Barrett's esophagus without dysplasia; N18.9 Chronic kidney disease, unspecified; K21.9 Gastro-esophageal reflux disease without esophagitis; E66.9 Obesity, unspecified; Z83.3 Family history of diabetes mellitus; J84.10 Pulmonary fibrosis, unspecified; Z79.82 Long term (current) use of aspirin; Z79.4 Long term (current) use of insulin; Z79.899 Other long term (current) drug therapy; Z88.0 Allergy status to penicillin
CPT/HCPCS: 36415; 71020; 71275; 80048; 80076; 80162; 82550; 82553; 83690; 83880; 84484; 85025; 85379; 93005; 93041; 94760; 99285; Q9967

== ENCOUNTER → 2016-09-11 | Outpatient (CLI) | payer MEDICARE, MEDICAID ==
--- NOTE | 2016-09-25 01:17 | ECWPNPC ---
PATIENT NAME: PINEDA VALDERRAMA I : 1945 GENDER: FEMALE VISIT DATE: 09/11/2016 DISCHARGE DATE: 09/11/16 1120 VISIT LOCKED DATE TIME: PHYSICIAN: HUGO BENNETT RESOURCE: HUGO BENNETT HISTORY OF PRESENT ILLNESS HISTORY OF PRESENT ILLNESS: PAIN THE PATIENT DESCRIBES THE PAIN... THE PATIENT DESCRIBES THE PAIN... THE PATIENT DESCRIBES THE PAIN... HERE FOR F/U .REPORTING PAIN VAS 6/10.PAIN IS LOCATED ACROSS LOW BACK W RADIATION INTO LEGS BILAT.DESCRIBES PAIN CONSTANT ,SHARP AND SORE.PAIN AGGREVATED BY STANDING.CONTINUES ON CYMBALTA 30MG AND REPORTS IMPROVEMENT IN PAIN AND ABILITY TO TOLERATE ACTIVITIES FOR LONGER PERIODS OF TIME. DENIES SIDE EFFECTS.ALSO USING TRAMADOL 50MG PRN FOR SEVERE PAIN WITH GOOD EFFECT. FALL RISK SCREENING: SCREENING :NO FALLS IN THE PAST YEAR CURRENT MEDICATIONS TAKING PROAIR HFA 108 (90 BASE) MCG/ACT AEROSOL SOLUTION 2 PUFFS NEEDED INHALATION QID PRN, NOTES: 12-12-15 0500 TAKING ALLOPURINOL 100 MG TABLET 1 TABLET ORALLY ONCE A DAY, NOTES: 12-11-15 TAKING AMMONIUM LACTATE 12 % LOTION 1 APPLICATION TO AFFECTED AREA EXTERNALLY TWICE A DAY, NOTES: 12-11-15 TAKING ASPIRIN 81 MG TABLET CHEWABLE 1 TABLET ORALLY ONCE A DAY, NOTES: 12-11-15 TAKING ATORVASTATIN CALCIUM 40 MG TABLET 1 TABLET ORALLY ONCE A DAY, NOTES: 12-11-15 TAKING BETA CAROTENE 33068 UNIT CAPSULE 1 CAPSULE ORALLY ONCE A DAY, NOTES: 12-11-15 TAKING NEXIUM 40 CAPSULE DELAYED RELEASE 1 CAPSULE ORALLY ONCE A DAY, NOTES: 12-11-15 TAKING FEXOFENADINE HCL 180 MG TABLET 1 TABLET ORALLY ONCE A DAY, NOTES: 12-11-15 TAKING LASIX 80 MG TABLET 1 TABLET ORALLY EVERY AM AND 1/2 TABLET AT NOON, NOTES: 12-11-15 TAKING ICAPS CAPSULE 1 CAP(S) ORALLY TWICE A DAY, NOTES: 12-11-15 TAKING LANTUS 100 UNIT/ML SOLUTION 90 IN AM AND 85 IN PM SUBCUTANEOUS BID, NOTES: 12-11-15 TAKING HUMALOG 100 UNIT/ML SOLUTION SLIDING SCALE SUBCUTANEOUS AC AND HS, NOTES: 12-11-15 TAKING MAGNESIUM 400 MG CAPSULE 2 TAB(S) ORALLY TID, NOTES: 12-11-15 TAKING ELÍAS MULTI WOMEN TABLET EXTENDED RELEASE ORALLY DAILY, NOTES: 12-11-15 TAKING METOLAZONE 2.5 MG TABLET 1 TABLET ORALLY WEEKLY, NOTES: 12-11-15 TAKING POTASSIUM CHLORIDE 10 MEQ ER TABLET EXTENDED RELEASE 3 ORALLY TID, NOTES: 12-11-15 TAKING ADVAIR DISKUS 500-50 MCG/DOSE AEROSOL POWDER BREATH ACTIVATED 1 PUFF INHALATION TWICE A DAY, NOTES: 12-11-15 TAKING SPIRIVA HANDIHALER 18 MCG CAPSULE 1 CAPSULE INHALATION ONCE A DAY, NOTES: 12-11-15 TAKING FLONASE 50 MCG/DOSE SPRAY 2 SPRAY IN EACH NOSTRIL NASALLY TWICE A DAY, NOTES: 12-11-15 TAKING RANITIDINE HCL 150 MG TABLET ORALLY DAILY, NOTES: 12-11-15 TAKING LEVOTHYROXINE SODIUM 50 MCG TABLET 1 TAB(S) ORALLY DAILY, NOTES: 12-11-15 TAKING LORAZEPAM 0.5 MG TABLET ORALLY 3 TIME A DAY, NOTES: 12-10-15 TAKING TRAZODONE HCL 150 MG TABLET 1 TABLET AT BEDTIME ORALLY ONCE A DAY, NOTES: 12-11-15 TAKING LISINOPRIL 10 MG TABLET ORALLY DAILY, NOTES: 12-11-15 TAKING VENLAFAXINE HCL 150 MG TABLET ORALLY TWICE A DAY, NOTES: 12-11-15 TAKING CYMBALTA 30 MG CAPSULE DELAYED RELEASE PARTICLES 1 CAPSULE ORALLY ONCE A DAY TAKING TRAMADOL HCL 50 MG TABLET 2 ORALLY Q6H PRN MDD 4, NOTES: 12-11-15 NOT-TAKING VALIUM 10 MG TABLET 1 TABLET NEEDED ORALLY 1 TAB 1HR PRE PROC MDD 1, NOTES: 12-12-15 07 NOT-TAKING OXYCODONE HCL 5 MG TABLET 2 ORALLY 2 TAB 1HR PRE PROC MDD2, NOTES: 12-12-15 0730 NOT-TAKING FUROSEMIDE 40 MG TABLET ORALLY AT NOON DAILY NOT-TAKING COLACE 100 MG CAPSULE 1 CAP(S) ORALLY DAILY NEEDED, NOTES: LONG TIME AGO NOT-TAKING BENGAY PAIN RELIEF + MASSAGE 1.4% CREAM 1 DOSE TOPICALLY PRN, NOTES: 07-23-151999 MEDICATION LIST REVIEWED AND RECONCILED WITH THE PATIENT PAST MEDICAL HISTORY POST LAMINECTOMY SYNDROME DIABETES MELLITUS COPD CONGESTIVE HEART FAILURE HEADACHE DEPRESSION OBSESSIVE-COMPULSIVE PERSONALITY DISORDER HYPERTENSION OBSTRUCTIVE SLEEP APNEA LOWER EXTREMITY NEUROPATHY RIGHT LUNG CANCER ALLERGIES CONTRAST MEDIA: ITCHY HIVES: ALLERGY PENICILLIN (FOR ALLERGIES USE ONLY): HIVES: ALLERGY SURGICAL HISTORY CHOLECYSTECTOMY APPENDECTOMY HYSTERECTOMY LAMINECTOMY RIGHT UPPER LUNG LOBECTOMY 05/2016 REVIEW OF SYSTEMS CONSTITUTIONAL: ANY CHANGE IN YOUR MEDICAL CONDITION? YES. LUNG CANCER, 05/2016 RIGHT UPPER LOBECTOMY, 2L NC AAT. NO CHEMO OR RADIATION. . CHILLS NO . FEVER NO . INFECTION: DO YOU HAVE NEW INFECTIONS? NO . DO YOU HAVE HISTORY OF MRSA? NO . MUSCULOSKELETAL: ANY NEW PATTERNS OF PAIN OR NUMBNESS? NO . GASTROENTEROLOGY: ANY NEW CHANGE IN BOWEL CONTROL? NO . GENITOURINARY: ANY NEW CHANGE IN BLADDER CONTROL? NO . IS THERE A CHANCE YOU COULD BE ? NO . HEMATOLOGY/LYMPH: DO YOU TAKE ANY BLOOD THINNERS? (FOR EXAMPLE- COUMADIN, PLAVIX, AGGRENOX, PLATEL, PRADAXA, OR XARELTO) NO . WHEN WAS YOUR LAST DOSE? DATE: TIME: . NEUROLOGY: HAVE YOU FALLEN IN THE PAST 6 MONTHS? NO . ANY NEW EXTREMITY NUMBNESS OR WEAKNESS? NO . CARDIOLOGY: DO YOU HAVE A PACEMAKER OR DEFIBRILLATOR? NO . RESPIRATORY: HAVE YOU BEEN SICK IN THE PAST WEEK? NO . FEVER NO . FLU LIKE SYMPTOMS? NO . COUGH NO . INTEGUMENTARY: DO YOU HAVE ANY RASHES OR OPEN SORES? NO . ALLERGIC/IMMUNO: ARE YOU ALLERGIC TO SHELLFISH OR IV DYE? NO . ANY NEW ALLERGIES? NO . PSYCHIATRIC: DO YOU HAVE THOUGHTS OF HURTING YOURSELF OR SOMEONE ELSE? NO . ARE YOU ABUSED, NEGLECTED, OR IN AN UNSAFE ENVIRONMENT? NO . ENDOCRINOLOGY: ARE YOU DIABETIC? YES . OTHER: DO YOU NEED ANY PRESCRIPTIONS? YES, TRAMADOL . IF YES, PLEASE LIST: ____ . ANY NEW PROBLEMS WITH YOUR MEDICATIONS? NO . WHEN DID YOU LAST EAT? ____ . WHEN DID YOU LAST DRINK? ____ . WHAT DID YOU LAST DRINK? ____ . NAME OF PERSON DRIVING YOU HOME? ____ . DO YOU HAVE ANY OTHER QUESTIONS OR CONCERNS NO . REVIEWED BY: PROVIDER: HUGO VALENTIN . VITAL SIGNS WT 231. LBS, HT 66 IN, BMI 37.28 INDEX, BP 140/66 MM HG, HR 92 /MIN, RR 18 /MIN, TEMP 97.6 F, OXYGEN SAT % 99%, NA INITIALS SC 11:07. EXAMINATION GENERAL EXAMINATION: LUNGS:LUNG SOUNDS ARE CLEAR. HEART:HEART RATE REGULAR. MUSCULOSKELETAL:*. MUSCULOSKELETAL:*, MUSCLE STRENGTH TESTING 3/5 BILATERAL, PALPATION: POSITIVE FOR PAIN OVER L/S SPINE. POSITIVE FOR PAIN OVER L/S PARSPINALS. DIAGNOSTIC: . ASSESSMENTS POST LAMINECTOMY SYNDROME - M96.1 (PRIMARY) CHRONIC PRESCRIPTION OPIATE USE - Z79.899 TREATMENT POST LAMINECTOMY SYNDROME CONTINUE CYMBALTA CAPSULE DELAYED RELEASE PARTICLES, 30 MG, 1 CAPSULE, ORALLY, ONCE A DAY, 30 DAY(S), 30 CAPSULE, REFILLS 2 CONTINUE TRAMADOL HCL TABLET, 50 MG, 1-2, ORALLY, Q6H PRN MDD 4 #60 TAB IS ONE MONTH SUPPLY, 30 DAY(S), 60, REFILLS 1, NOTES: 12-11-15 PROCEDURE CODES FA211 ESTABILISHED PATIENT [facility] FACILITY CHARGE G8730 PAIN ASSESS POS TOOL F/U PLAN DOC G8427 DOC MEDS VERIFIED W/PT OR RE DISPOSITION & COMMUNICATION FOLLOW UP 2 MONTHS ELECTRONICALLY SIGNED BY HOMERO UGALDE ON 09/24/2016 AT 05:49 PM EDT DISCLAIMER : THIS IS A VISIT SUMMARY EXTRACTED FROM THE [employer] CHART. IT IS NOT A COPY OF THE [employer] PROGRESS NOTE. ROMERO
== END ==
LOC: M PAIN 10:00
PROVIDERS: ATTEND Nurse Practitioner Family
DX: M96.1 Postlaminectomy syndrome, not elsewhere classified (principal); E11.9 Type 2 diabetes mellitus without complications; J44.9 Chronic obstructive pulmonary disease, unspecified; F32.9 Major depressive disorder, single episode, unspecified; F42.9 Obsessive-compulsive disorder, unspecified; I11.0 Hypertensive heart disease with heart failure; I50.9 Heart failure, unspecified; G47.33 Obstructive sleep apnea (adult) (pediatric); Z91.041 Radiographic dye allergy status; Z88.0 Allergy status to penicillin; Z90.3 Acquired absence of stomach [part of]; Z79.82 Long term (current) use of aspirin; Z79.4 Long term (current) use of insulin; Z79.891 Long term (current) use of opiate analgesic; Z79.899 Other long term (current) drug therapy

== ENCOUNTER → 2016-09-17 | Outpatient (CLI) | payer MEDICARE, MEDICAID ==
[2016-09-17 18:56] LABS: RETIC HEMOGLOBIN CONTENT CHr 28.7 PG (24-36); RETICULOCYTE % ADVIA2120 2.5 % (0.5-1.5)
[2016-09-17 19:31] LABS: PERCENT SATURATION 17.2 % (13.2-37.4)
== END ==
LOC: M ADAMS 14:58
PROVIDERS: ATTEND Nurse Practitioner Family
DX: D64.9 Anemia, unspecified (principal)

== ENCOUNTER → 2016-11-11 | Outpatient (CLI) | payer MEDICARE, MEDICAID ==
[~2016-11-11] MED LIST changes: +ATOR40TA75 PO; -AVEL1TAB PO; +AVEL1TAB3 PO; +FERR1TAB8 PO; -FERR325T PO; +LEVA1TAB2 PO; -LEVA500T PO; +LEVO500T3 PO; -LEVO500T32 PO; +PERC5TAB12 PO; -PERC5TAB6 PO; -PRED10TA PO; +PRED10TA2 PO; -PRIM250T5 PO; +PRIM250T8 PO; -PROA1AER INH; +PROAAER10 INH; -TRAZ150T14 PO; +TRAZ1TAB14 PO; -TRIC145T PO; +TRIC145T22 PO
--- NOTE | 2016-11-12 02:25 | ECWPNPC ---
PATIENT NAME: PINEDA VALDERRAMA I : 1945 GENDER: FEMALE VISIT DATE: 11/11/2016 DISCHARGE DATE: 11/11/16 1115 VISIT LOCKED DATE TIME: PHYSICIAN: HUGO BENNETT RESOURCE: HUGO BENNETT REASON FOR APPOINTMENT 1. FOLLOWUP HISTORY OF PRESENT ILLNESS HISTORY OF PRESENT ILLNESS: HERE FOR F/U OF CHRONIC LOW BACK PAIN.HAVING SIGNIFICANT INCREASE IN PAIN LATELY.STATES TRAMADOL IS INEFFECTIVE EVEN AFTER TAKING TWO TABLETS AT A TIME.DESCRIBES PAIN CONSTANT AND ACHING.PAIN RADIATES INTO BOTH LEGS.PAIN IS AGGREVATED BY STANDING TO DO DISHES OR SWEEPING.PAIN RELIEVED SOMEWHAT WITH HEAT AND RECLINING. PAIN THE PATIENT DESCRIBES THE PAIN... FALL RISK SCREENING: SCREENING :NO FALLS IN THE PAST YEAR CURRENT MEDICATIONS TAKING PROAIR HFA 108 (90 BASE) MCG/ACT AEROSOL SOLUTION 2 PUFFS NEEDED INHALATION QID PRN TAKING ALLOPURINOL 100 MG TABLET 1 TABLET ORALLY ONCE A DAY TAKING AMMONIUM LACTATE 12 % LOTION 1 APPLICATION TO AFFECTED AREA EXTERNALLY TWICE A DAY TAKING ASPIRIN 81 MG TABLET CHEWABLE 1 TABLET ORALLY ONCE A DAY TAKING ATORVASTATIN CALCIUM 40 MG TABLET 1 TABLET ORALLY ONCE A DAY TAKING BETA CAROTENE 29846 UNIT CAPSULE 1 CAPSULE ORALLY ONCE A DAY TAKING NEXIUM 40 CAPSULE DELAYED RELEASE 1 CAPSULE ORALLY ONCE A DAY TAKING FEXOFENADINE HCL 180 MG TABLET 1 TABLET ORALLY ONCE A DAY TAKING LASIX 80 MG TABLET 1 TABLET ORALLY EVERY AM AND 1/2 TABLET AT NOON TAKING ICAPS CAPSULE 1 CAP(S) ORALLY TWICE A DAY TAKING LANTUS 100 UNIT/ML SOLUTION 90 IN AM AND 85 IN PM SUBCUTANEOUS BID TAKING HUMALOG 100 UNIT/ML SOLUTION SLIDING SCALE SUBCUTANEOUS AC AND HS TAKING MAGNESIUM 400 MG CAPSULE 2 TAB(S) ORALLY TID TAKING ELÍAS MULTI WOMEN TABLET EXTENDED RELEASE ORALLY DAILY TAKING METOLAZONE 2.5 MG TABLET 1 TABLET ORALLY WEEKLY TAKING POTASSIUM CHLORIDE 10 MEQ ER TABLET EXTENDED RELEASE 3 ORALLY TID TAKING ADVAIR DISKUS 500-50 MCG/DOSE AEROSOL POWDER BREATH ACTIVATED 1 PUFF INHALATION TWICE A DAY TAKING SPIRIVA HANDIHALER 18 MCG CAPSULE 1 CAPSULE INHALATION ONCE A DAY TAKING FLONASE 50 MCG/DOSE SPRAY 2 SPRAY IN EACH NOSTRIL NASALLY TWICE A DAY TAKING RANITIDINE HCL 150 MG TABLET ORALLY DAILY TAKING LEVOTHYROXINE SODIUM 50 MCG TABLET 1 TAB(S) ORALLY DAILY TAKING LORAZEPAM 0.5 MG TABLET ORALLY 3 TIME A DAY TAKING TRAZODONE HCL 150 MG TABLET 1 TABLET AT BEDTIME ORALLY ONCE A DAY TAKING LISINOPRIL 10 MG TABLET ORALLY DAILY TAKING VENLAFAXINE HCL 150 MG TABLET ORALLY TWICE A DAY TAKING CYMBALTA 30 MG CAPSULE DELAYED RELEASE PARTICLES 1 CAPSULE ORALLY ONCE A DAY TAKING TRAMADOL HCL 50 MG TABLET 1-2 ORALLY Q6H PRN MDD 4 #60 TAB IS ONE MONTH SUPPLY NOT-TAKING VALIUM 10 MG TABLET 1 TABLET NEEDED ORALLY 1 TAB 1HR PRE PROC MDD 1, NOTES: 12-12-15729 NOT-TAKING OXYCODONE HCL 5 MG TABLET 2 ORALLY 2 TAB 1HR PRE PROC MDD2, NOTES: 12-12-15729 NOT-TAKING FUROSEMIDE 40 MG TABLET ORALLY AT NOON DAILY NOT-TAKING COLACE 100 MG CAPSULE 1 CAP(S) ORALLY DAILY NEEDED, NOTES: LONG TIME AGO NOT-TAKING BENGAY PAIN RELIEF + MASSAGE 1.4% CREAM 1 DOSE TOPICALLY PRN, NOTES: 07-23-151999 MEDICATION LIST REVIEWED AND RECONCILED WITH THE PATIENT PAST MEDICAL HISTORY POST LAMINECTOMY SYNDROME DIABETES MELLITUS COPD CONGESTIVE HEART FAILURE HEADACHE DEPRESSION OBSESSIVE-COMPULSIVE PERSONALITY DISORDER HYPERTENSION OBSTRUCTIVE SLEEP APNEA LOWER EXTREMITY NEUROPATHY RIGHT LUNG CANCER ALLERGIES CONTRAST MEDIA: ITCHY HIVES: ALLERGY PENICILLIN (FOR ALLERGIES USE ONLY): HIVES: ALLERGY SOCIAL HISTORY GENERAL: SYNAGOGUE [id number] [facility] PFS, CLERGY, PUBLIC HEALTH REFERRALS PFS REFERRAL NEEDED?NO CLERGY REFERRAL NEEDED?NO PUBLIC HEALTH REFERRAL NEEDED?NO HAS THE PATIENT BEEN EDUCATED REGARDING HIS/HER PLAN OF CARE?YES HAS THE PATIENT BEEN EDUCATED REGARDING PAIN, THE RISK FOR PAIN, THE IMPORTANCE OF EFFECTIVE PAIN MANAGEMENT, AND THE PAIN ASSESSMENT PROCESS?YES REVIEW OF SYSTEMS REVIEWED BY: PROVIDER: HUGO VALENTIN . CONSTITUTIONAL: ANY CHANGE IN YOUR MEDICAL CONDITION? NO . CHILLS NO . FEVER NO . INFECTION: DO YOU HAVE NEW INFECTIONS? NO . DO YOU HAVE HISTORY OF MRSA? NO . MUSCULOSKELETAL: ANY NEW PATTERNS OF PAIN OR NUMBNESS? NO . GASTROENTEROLOGY: ANY NEW CHANGE IN BOWEL CONTROL? NO . GENITOURINARY: ANY NEW CHANGE IN BLADDER CONTROL? NO . IS THERE A CHANCE YOU COULD BE ? NO . HEMATOLOGY/LYMPH: DO YOU TAKE ANY BLOOD THINNERS? (FOR EXAMPLE- COUMADIN, PLAVIX, AGGRENOX, PLATEL, PRADAXA, OR XARELTO) NO . WHEN WAS YOUR LAST DOSE? DATE: TIME: . NEUROLOGY: HAVE YOU FALLEN IN THE PAST 6 MONTHS? NO . ANY NEW EXTREMITY NUMBNESS OR WEAKNESS? NO . CARDIOLOGY: DO YOU HAVE A PACEMAKER OR DEFIBRILLATOR? NO . RESPIRATORY: HAVE YOU BEEN SICK IN THE PAST WEEK? NO . FEVER NO . FLU LIKE SYMPTOMS? NO . COUGH NO . INTEGUMENTARY: DO YOU HAVE ANY RASHES OR OPEN SORES? NO . ALLERGIC/IMMUNO: ARE YOU ALLERGIC TO SHELLFISH OR IV DYE? NO . ANY NEW ALLERGIES? NO . PSYCHIATRIC: DO YOU HAVE THOUGHTS OF HURTING YOURSELF OR SOMEONE ELSE? NO . ARE YOU ABUSED, NEGLECTED, OR IN AN UNSAFE ENVIRONMENT? NO . ENDOCRINOLOGY: ARE YOU DIABETIC? YES . OTHER: DO YOU NEED ANY PRESCRIPTIONS? NO . IF YES, PLEASE LIST: ____ . ANY NEW PROBLEMS WITH YOUR MEDICATIONS? NO . WHEN DID YOU LAST EAT? ____ . WHEN DID YOU LAST DRINK? ____ . WHAT DID YOU LAST DRINK? ____ . NAME OF PERSON DRIVING YOU HOME? ____ . DO YOU HAVE ANY OTHER QUESTIONS OR CONCERNS YES, &QUOT;I NEED SOMETHING THAT WILL TAKE THE PAIN AWAY FOR A WHILE&QUOT; . VITAL SIGNS WT 232.0 LBS, HT 66 IN, BMI 37.44 INDEX, BP 138/67 MM HG, HR 98 /MIN, RR 20 /MIN, TEMP 97.8 F, OXYGEN SAT % 94%, NA INITIALS TL 1035, REVIEWED BY: CS. EXAMINATION GENERAL EXAMINATION: LUNGS:LUNG SOUNDS ARE CLEAR. HEART:HEART RATE REGULAR. MUSCULOSKELETAL:*SPECIFIC POINT TENDERNESS OVER BILATERAL FACET L34-L4/5 WITH FACET LOADING.. DIAGNOSTIC:MRI L/S SPINE 2015-REVIEWED. ASSESSMENTS POST LAMINECTOMY SYNDROME - M96.1 (PRIMARY) CHRONIC PRESCRIPTION OPIATE USE - Z79.899 LUMBAR SPONDYLOLYSIS - M43.06 TREATMENT POST LAMINECTOMY SYNDROME CONTINUE CYMBALTA CAPSULE DELAYED RELEASE PARTICLES, 30 MG, 1 CAPSULE, ORALLY, ONCE A DAY, 30 DAY(S), 30 CAPSULE, REFILLS 2 REFILL TRAMADOL HCL TABLET, 50 MG, 1-2, ORALLY, Q6H PRN MDD 4 #60 TAB IS ONE MONTH SUPPLY, 30 DAY(S), 60, REFILLS 1 NOTES: BILATERAL L3/4-L4/5 THERAPEUTIC FACET BLOCK. PREVENTIVE MEDICINE PAIN CLINIC TEACHING: PROCEDURE TEACHING TEACHING DONE, QUESTIONS ANSWERED AND VERBALIZES UNDERSTANDING. PROCEDURE CODES FA211 ESTABILISHED PATIENT [facility] FACILITY CHARGE G8730 PAIN ASSESS POS TOOL F/U PLAN DOC G8427 DOC MEDS VERIFIED W/PT OR RE DISPOSITION & COMMUNICATION FOLLOW UP 2WK POST (REASON: BILATERAL L3/4-L4/5 THERAPEUTIC FACET BLOCK) ELECTRONICALLY SIGNED BY HOMERO UGALDE ON 11/11/2016 AT 11:53 AM EDT DISCLAIMER : THIS IS A VISIT SUMMARY EXTRACTED FROM THE [employer] CHART. IT IS NOT A COPY OF THE [facility] [facility] PROGRESS NOTE. ROMERO
== END ==
LOC: M PAIN 10:20
PROVIDERS: ATTEND Nurse Practitioner Family
DX: M96.1 Postlaminectomy syndrome, not elsewhere classified (principal); M43.06 Spondylolysis, lumbar region; E11.9 Type 2 diabetes mellitus without complications; J44.9 Chronic obstructive pulmonary disease, unspecified; F32.9 Major depressive disorder, single episode, unspecified; F42.9 Obsessive-compulsive disorder, unspecified; I10 Essential (primary) hypertension; G47.33 Obstructive sleep apnea (adult) (pediatric); Z91.041 Radiographic dye allergy status; Z88.0 Allergy status to penicillin; Z79.82 Long term (current) use of aspirin; Z79.4 Long term (current) use of insulin; Z79.891 Long term (current) use of opiate analgesic; Z79.899 Other long term (current) drug therapy

== ENCOUNTER → 2016-11-20 | Outpatient (REF) | payer MEDICARE, MEDICAID ==
[2016-11-20 12:43] LABS: BASO % 0.5 % (0.0-1.0); EOS # 0.4 K/mm3 (0.0-0.50); EOS % 4.7 % (0.0-3.0); LARGE UNSTAINED CELL # 0.1 K/mm3 (0.0-0.4); LYMPH # 1.3 K/mm3 (1.5-4.5); LYMPH % 14.7 % (24.0-44.0); MEAN CORPUSCULAR HEMOGLOBIN 27.7 pg (27.0-33.0); MEAN CORPUSCULAR HGB CONC 32.2 g/dl (32.0-36.5); MEAN CORPUSCULAR VOLUME 86.1 fl (80.0-96.0); MONO # 0.5 K/mm3 (0.0-0.8); MONO % 6.6 % (0.0-5.0); NEUTROPHILS # 5.9 K/mm3 (1.8-7.7); NEUTROPHILS % 72.6 % (36.0-66.0); PLATELET COUNT, AUTOMATED 277 k/mm3 (150-450); RED CELL DISTRIBUTION WIDTH 15.5 % (11.5-14.5); WHITE BLOOD COUNT 8.1 K/mm3 (4.0-10.0)
[2016-11-20 12:59] LABS: FREE T4 1.19 NG/DL (0.76-1.46)
== END ==
LOC: M LABDRWAD 12:05
PROVIDERS: ATTEND Family Medicine
DX: E55.9 Vitamin D deficiency, unspecified (principal); E78.5 Hyperlipidemia, unspecified; R73.01 Impaired fasting glucose

== ENCOUNTER → 2016-11-27 | Outpatient (CLI) | payer MEDICARE, MEDICAID ==
[~2016-11-27] MED LIST changes: +BUPIVACAINE HCL 0.25% 30 ML VIAL As Ordered ONE; +ISOVUE-M 300 61% 15ML VIAL (Q9967) As Ordered ONE; +LIDOCAINE 1% SDV INJ 30 ML VIAL As Ordered ONE; +TRIAMCINOLONE ACETONIDE SUSP 40 MG/ML VIAL (J3301) As Ordered ONE; +diazePAM 5 MG TAB As Ordered ONE; +oxyCODONE 5MG TAB As Ordered ONE
--- NOTE | 2016-11-27 14:55 | REP ---
FACET BLOCK: The images were reviewed with Dr. Hughes. The patient has a history of chronic low back pain. The portable C-arm was provided in the OR for Dr. Guardado for fluoroscopy guidance. Two intraoperative fluoroscopic spot films were obtained for needle placement verification for bilateral lumbar facet injection. The films are on the PACs system and are available for review. 28 seconds of fluoroscopic time was utilized for this procedure. Reviewed by JASON Sandhu 11/28/2016 07:53 AEdited and Signed by Alfred Hughes MD 11/28/2016 05:40 P
--- NOTE | 2016-12-15 23:57 | ECWPNPC ---
PATIENT NAME: PINEDA VALDERRAMA I : 1945 GENDER: FEMALE VISIT DATE: 11/27/2016 DISCHARGE DATE: 11/27/16 1055 VISIT LOCKED DATE TIME: PHYSICIAN: JORGE PATEL RESOURCE: JORGE PATEL REASON FOR APPOINTMENT 1. BILATERAL L3/4-L4/5 THERAPEUTIC FACET HISTORY OF PRESENT ILLNESS HISTORY OF PRESENT ILLNESS: PAIN THE PATIENT DESCRIBES THE PAIN... FALL RISK SCREENING: SCREENING :NO FALLS IN THE PAST YEAR CURRENT MEDICATIONS TAKING PROAIR HFA 108 (90 BASE) MCG/ACT AEROSOL SOLUTION 2 PUFFS NEEDED INHALATION QID PRN, NOTES: 11-26-162099 TAKING ALLOPURINOL 100 MG TABLET 1 TABLET ORALLY ONCE A DAY, NOTES: 11-26-16799 TAKING AMMONIUM LACTATE 12 % LOTION 1 APPLICATION TO AFFECTED AREA EXTERNALLY TWICE A DAY TAKING ASPIRIN 81 MG TABLET CHEWABLE 1 TABLET ORALLY ONCE A DAY, NOTES: 11-26-16799 TAKING ATORVASTATIN CALCIUM 40 MG TABLET 1 TABLET ORALLY ONCE A DAY, NOTES: 11-26-16799 TAKING BETA CAROTENE 69541 UNIT CAPSULE 1 CAPSULE ORALLY ONCE A DAY, NOTES: 11-26-16799 TAKING NEXIUM 40 CAPSULE DELAYED RELEASE 1 CAPSULE ORALLY ONCE A DAY, NOTES: 11-26-16799 TAKING FEXOFENADINE HCL 180 MG TABLET 1 TABLET ORALLY ONCE A DAY, NOTES: 11-26-1600 TAKING LASIX 80 MG TABLET 1 TABLET ORALLY EVERY AM AND 1/2 TABLET AT NOON, NOTES: 11-26-161199 TAKING ICAPS CAPSULE 1 CAP(S) ORALLY TWICE A DAY, NOTES: 11-26-161199 TAKING LANTUS 100 UNIT/ML SOLUTION 90 IN AM AND 85 IN PM SUBCUTANEOUS BID, NOTES: 11-26-162099 TAKING HUMALOG 100 UNIT/ML SOLUTION SLIDING SCALE SUBCUTANEOUS AC AND HS, NOTES: 11-26-161799 TAKING MAGNESIUM 400 MG CAPSULE 2 TAB(S) ORALLY TID, NOTES: 11-26-16799 TAKING ELÍAS MULTI WOMEN TABLET EXTENDED RELEASE ORALLY DAILY, NOTES: 11-26-16799 TAKING METOLAZONE 2.5 MG TABLET 1 TABLET ORALLY WEEKLY, NOTES: WEEK AGO TAKING POTASSIUM CHLORIDE 10 MEQ ER TABLET EXTENDED RELEASE 3 ORALLY TID, NOTES: 11-26-16799 TAKING ADVAIR DISKUS 500-50 MCG/DOSE AEROSOL POWDER BREATH ACTIVATED 1 PUFF INHALATION TWICE A DAY, NOTES: 11-26-162099 TAKING SPIRIVA HANDIHALER 18 MCG CAPSULE 1 CAPSULE INHALATION ONCE A DAY, NOTES: 11-26-162099 TAKING FLONASE 50 MCG/DOSE SPRAY 2 SPRAY IN EACH NOSTRIL NASALLY TWICE A DAY, NOTES: 11-26-16799 TAKING RANITIDINE HCL 150 MG TABLET ORALLY DAILY, NOTES: 11-26-161199 TAKING LEVOTHYROXINE SODIUM 50 MCG TABLET 1 TAB(S) ORALLY DAILY, NOTES: 11-26-161199 TAKING LORAZEPAM 0.5 MG TABLET ORALLY 3 TIME A DAY, NOTES: 11-26-162099 TAKING TRAZODONE HCL 150 MG TABLET 1 TABLET AT BEDTIME ORALLY ONCE A DAY, NOTES: 11-26-162099 TAKING LISINOPRIL 10 MG TABLET ORALLY DAILY, NOTES: 11-26-16799 TAKING VENLAFAXINE HCL 150 MG TABLET ORALLY TWICE A DAY, NOTES: 11-26-162099 TAKING CYMBALTA 30 MG CAPSULE DELAYED RELEASE PARTICLES 1 CAPSULE ORALLY ONCE A DAY, NOTES: 11-26-16799 TAKING TRAMADOL HCL 50 MG TABLET 1-2 ORALLY Q6H PRN MDD 4 #60 TAB IS ONE MONTH SUPPLY, NOTES: 11-26-162099 NOT-TAKING VALIUM 10 MG TABLET 1 TABLET NEEDED ORALLY 1 TAB 1HR PRE PROC MDD 1, NOTES: 12-12-15729 NOT-TAKING OXYCODONE HCL 5 MG TABLET 2 ORALLY 2 TAB 1HR PRE PROC MDD2, NOTES: 12-12-15729 NOT-TAKING FUROSEMIDE 40 MG TABLET ORALLY AT NOON DAILY NOT-TAKING COLACE 100 MG CAPSULE 1 CAP(S) ORALLY DAILY NEEDED, NOTES: LONG TIME AGO NOT-TAKING BENGAY PAIN RELIEF + MASSAGE 1.4% CREAM 1 DOSE TOPICALLY PRN, NOTES: 07-23-151999 MEDICATION LIST REVIEWED AND RECONCILED WITH THE PATIENT PAST MEDICAL HISTORY POST LAMINECTOMY SYNDROME DIABETES MELLITUS COPD CONGESTIVE HEART FAILURE HEADACHE DEPRESSION OBSESSIVE-COMPULSIVE PERSONALITY DISORDER HYPERTENSION OBSTRUCTIVE SLEEP APNEA LOWER EXTREMITY NEUROPATHY RIGHT LUNG CANCER ALLERGIES CONTRAST MEDIA: ITCHY HIVES: ALLERGY PENICILLIN (FOR ALLERGIES USE ONLY): HIVES: ALLERGY REVIEW OF SYSTEMS REVIEWED BY: PROVIDER: . CONSTITUTIONAL: ANY CHANGE IN YOUR MEDICAL CONDITION? NO . CHILLS NO . FEVER NO . INFECTION: DO YOU HAVE NEW INFECTIONS? NO . DO YOU HAVE HISTORY OF MRSA? NO . MUSCULOSKELETAL: ANY NEW PATTERNS OF PAIN OR NUMBNESS? NO . GASTROENTEROLOGY: ANY NEW CHANGE IN BOWEL CONTROL? NO . GENITOURINARY: ANY NEW CHANGE IN BLADDER CONTROL? NO . IS THERE A CHANCE YOU COULD BE ? NO . HEMATOLOGY/LYMPH: DO YOU TAKE ANY BLOOD THINNERS? (FOR EXAMPLE- COUMADIN, PLAVIX, AGGRENOX, PLATEL, PRADAXA, OR XARELTO) NO . WHEN WAS YOUR LAST DOSE? DATE: TIME: . NEUROLOGY: HAVE YOU FALLEN IN THE PAST 6 MONTHS? NO . ANY NEW EXTREMITY NUMBNESS OR WEAKNESS? NO . CARDIOLOGY: DO YOU HAVE A PACEMAKER OR DEFIBRILLATOR? NO . RESPIRATORY: HAVE YOU BEEN SICK IN THE PAST WEEK? NO . FEVER NO . FLU LIKE SYMPTOMS? NO . COUGH NO . INTEGUMENTARY: DO YOU HAVE ANY RASHES OR OPEN SORES? NO . ALLERGIC/IMMUNO: ARE YOU ALLERGIC TO SHELLFISH OR IV DYE? NO . ANY NEW ALLERGIES? NO . PSYCHIATRIC: DO YOU HAVE THOUGHTS OF HURTING YOURSELF OR SOMEONE ELSE? NO . ARE YOU ABUSED, NEGLECTED, OR IN AN UNSAFE ENVIRONMENT? NO . ENDOCRINOLOGY: ARE YOU DIABETIC? YES, FSBS= 99 11-27-16 . OTHER: DO YOU NEED ANY PRESCRIPTIONS? NO . IF YES, PLEASE LIST: ____ . ANY NEW PROBLEMS WITH YOUR MEDICATIONS? NO . WHEN DID YOU LAST EAT? 11-26-16 PM . WHEN DID YOU LAST DRINK? 11-27-16 0600 . WHAT DID YOU LAST DRINK? WATER . DO YOU HAVE ANY OTHER QUESTIONS OR CONCERNS NO . VITAL SIGNS WT 232 LBS, HT 66 IN, BMI 37.44 INDEX, BP 120/60 MM HG, HR 77 /MIN, RR 18 /MIN, TEMP 97.8 F, OXYGEN SAT % 100%, REVIEWED BY: DENIZ [id number] ON 2L N/C. ASSESSMENTS SPONDYLOSIS WITHOUT MYELOPATHY OR RADICULOPATHY, LUMBAR REGION - M47.816 (PRIMARY) SPONDYLOSIS WITHOUT MYELOPATHY OR RADICULOPATHY, LUMBOSACRAL REGION - M47.817 PROCEDURES PN LUMBAR FACET BLOCK THERAPEUTIC PRE PROCEDURE DIAGNOSIS LUMBAR SPONDYLOSIS, LUMBOSACRAL SPONDYLOSIS POST PROCEDURE DIAGNOSIS LUMBAR SPONDYLOSIS, LUMBOSACRAL SPONDYLOSIS PROCEDURE BILATERAL L4-L5 AND BILATERAL L5-S1 LUMBAR FACET THERAPEUTIC BLOCK SURGEON DR. JORGE PATEL SUPERVISOR OPENING AND PICKING NONE ANESTHESIA LOCAL PRE PROCEDURE NOTE THE PATIENT HAS A HISTORY OF CHRONIC LOW BACK PAIN. I EVALUATE THE PATIENT AND REVIEWED THE CHART. I WENT OVER THE RISKS, ALTERNATIVES, AND BENEFITS ASSOCIATED WITH THIS PROCEDURE. THE PATIENT WOULD LIKE TO PROCEED AND GIVE CONSENT TO PERFORMED THE PROCEDURE. THE PATIENT DENIES UNEXPLAINABLE WEIGHT LOSS, FEVER, CHILLS, OR NEW CHANGES IN URINARY OR BOWEL CONTROL DESCRIPTION OF PROCEDURE THE PATIENT WAS BROUGHT TO THE PROCEDURE ROOM AND PLACED IN THE PRONE POSITION. THE LUMBOSACRAL AREA WAS CLEANED WITH CHLORAPREP SOLUTION AND DRAPED ASEPTICALLY. THE PROCEDURE WAS DONE UNDER STERILE CONDITIONS. I CHECKED LATERALITY AND THE LEVEL WHERE THE PROCEDURE WAS GOING TO BE PERFORMED WITH THE PATIENT AND THE SUPPORTING STAFF AT THE MOMENT OF THE TIME OUT IN THE PROCEDURE ROOM. UNDER FLUOROSCOPIC GUIDANCE, THE TARGET POINT WAS SELECTED AT THE RIGHT AND LEFT L4-L5 AND RIGHT AND LEFT L5-S1 FACET JOINT. TARGET POINT WAS SELECTED AFTER LATERAL ROTATION AND TILT OF THE MAGNIFIER OF THE C-ARM. LIDOCAINE 0.5% WAS USED TO NUMB THE SKIN AND THE SUBCUTANEOUS TISSUE BELOW IT. SPINAL NEEDLES, 22-GAUGE, WERE ADVANCED UNDER FLUOROSCOPIC GUIDANCE AND FOLLOWING PATIENT FEEDBACK UNTIL THE TARGETS WERE TOUCHED. THE POSITION OF THE NEEDLES WAS VERIFIED WITH AP AND LATERAL VIEWS. AFTER PROPER POSITION OF THE NEEDLES WAS ACHIEVED, ISOVUE-M DYE 30% 0.1 ML WAS INJECTED SHOWING ADEQUATE SPREAD OF THE DYE. THEN A SOLUTION OF 1.9 ML OF BUPIVACAINE 0.125% OF KENALOG 10 MG WAS INJECTED AT EACH SITE. THERE WAS NO EVIDENCE OF BLOOD, PARESTHESIA OR CEREBROSPINAL FLUID DURING THE PROCEDURE. THE PATIENT WAS SENT TO THE RECOVERY ROOM. THE PATIENT WAS MOVING THE EXTREMITIES AND DOING WELL. THERE WAS NO COMPLICATION DURING THE PROCEDURE. FLUOROSCOPY TIME WAS 28 SECONDS POST PROCEDURE NOTE THE PATIENT WILL BE SEEN IN A FOLLOW UP IN THE NEXT FEW WEEKS. INSTRUCTIONS WERE GIVEN, QUESTIONS WERE ANSWERED, AND THE PATIENT EXPRESSED UNDERSTANDING AND AGREES WITH THE PLAN. I, MARE CONDON, DOCUMENTED THE ABOVE INFORMATION ACTING A SCRIBE FOR DR. PATEL. I HAVE REVIEWED THE ABOVE DOCUMENT, WRITTEN BY MARE BRITTIBJaja AND I VERIFY THAT IT IS ACCURATE DIAGNOSTIC [facility] FACET BLOCK (PAIN)[id number] PROCEDURE CODES 65934 INJ PARAVERT F JNT L/S 1 LEV 12155 INJ PARAVERT F JNT L/S 2 LEV 6045F RADXPS IN END [id number] PXD DISPOSITION & COMMUNICATION FOLLOW UP 3 WEEKS ELECTRONICALLY SIGNED BY JORGE PATEL MD ON 12/15/2016 AT 08:31 AM EDT DISCLAIMER : THIS IS A VISIT SUMMARY EXTRACTED FROM THE [employer] CHART. IT IS NOT A COPY OF THE [employer] PROGRESS NOTE. MTDD
== END ==
LOC: M PAIN 09:00
PROVIDERS: ATTEND Anesthesiology
DX: G89.29 Other chronic pain (principal); M47.816 Spondylosis without myelopathy or radiculopathy, lumbar region; M47.817 Spondylosis without myelopathy or radiculopathy, lumbosacral region; E11.9 Type 2 diabetes mellitus without complications; J44.9 Chronic obstructive pulmonary disease, unspecified; F32.9 Major depressive disorder, single episode, unspecified; I10 Essential (primary) hypertension; G47.33 Obstructive sleep apnea (adult) (pediatric); Z91.041 Radiographic dye allergy status; Z88.0 Allergy status to penicillin; Z79.82 Long term (current) use of aspirin; Z79.4 Long term (current) use of insulin; Z79.891 Long term (current) use of opiate analgesic; Z79.899 Other long term (current) drug therapy
CPT/HCPCS: 64493; 64494; J3301; Q9967

== ENCOUNTER → 2016-12-27 | Outpatient (REF) | payer MEDICARE, MEDICAID ==
[~2016-12-27] MED LIST changes: -BUPIVACAINE HCL 0.25% 30 ML VIAL As Ordered ONE; -ISOVUE-M 300 61% 15ML VIAL (Q9967) As Ordered ONE; -LIDOCAINE 1% SDV INJ 30 ML VIAL As Ordered ONE; -TRIAMCINOLONE ACETONIDE SUSP 40 MG/ML VIAL (J3301) As Ordered ONE; -diazePAM 5 MG TAB As Ordered ONE; -oxyCODONE 5MG TAB As Ordered ONE
[2016-12-27 14:14] LABS: BACTERIA, URINE LARGE AMOUNT; HYALINE CAST, URINE NONE SEEN /lpf (0-1); MICROSCOPIC EXAM PERFORMED; RBC, URINE 0-1 /hpf (0-3); SQUAMOUS EPITHELIAL CELL URINE SMALL AMOUNT /hpf (SMALL AMT)
== END ==
LOC: M LAB REF 13:46
PROVIDERS: ATTEND Internal Medicine Nephrology
DX: N39.0 Urinary tract infection, site not specified (principal)

== ENCOUNTER → 2017-01-15 | Outpatient (CLI) | payer MEDICARE, MEDICAID ==
--- NOTE | 2017-01-23 01:28 | ECWPNPC ---
PATIENT NAME: PINEDA VALDERRAMA I : 1945 GENDER: FEMALE VISIT DATE: 01/15/2017 DISCHARGE DATE: 01/15/17 1055 VISIT LOCKED DATE TIME: PHYSICIAN: HUGO BENNETT RESOURCE: HUGO BENNETT HISTORY OF PRESENT ILLNESS HISTORY OF PRESENT ILLNESS: HERE FOR F/U OF CHRONIC LOW BACK PAIN.HAD BILAT. L3/4-L4/5 THERAPEUTIC FACET BLOCK ON 11-27-16.REPORTS ONLY 2 DAYS IMPROVEMENT IN PAIN POST PROCEDURE.HAVING SIGNIFICANT INCREASE IN PAIN LATELY.STATES TRAMADOL IS INEFFECTIVE EVEN AFTER TAKING TWO TABLETS AT A TIME.DESCRIBES PAIN CONSTANT AND ACHING.PAIN RADIATES INTO BOTH LEGS.PAIN IS AGGREVATED BY STANDING TO DO DISHES OR SWEEPING.PAIN RELIEVED SOMEWHAT WITH HEAT AND RECLINING.RATING PAIN VAS 8/10. PAIN THE PATIENT DESCRIBES THE PAIN... THE PATIENT DESCRIBES THE PAIN... FALL RISK SCREENING: SCREENING :NO FALLS IN THE PAST YEAR CURRENT MEDICATIONS TAKING PROAIR HFA 108 (90 BASE) MCG/ACT AEROSOL SOLUTION 2 PUFFS NEEDED INHALATION QID PRN, NOTES: 11-26-162099 TAKING ALLOPURINOL 100 MG TABLET 1 TABLET ORALLY ONCE A DAY, NOTES: 11-26-16799 TAKING AMMONIUM LACTATE 12 % LOTION 1 APPLICATION TO AFFECTED AREA EXTERNALLY TWICE A DAY TAKING ASPIRIN 81 MG TABLET CHEWABLE 1 TABLET ORALLY ONCE A DAY, NOTES: 11-26-16799 TAKING ATORVASTATIN CALCIUM 40 MG TABLET 1 TABLET ORALLY ONCE A DAY, NOTES: 11-26-16799 TAKING BETA CAROTENE 18735 UNIT CAPSULE 1 CAPSULE ORALLY ONCE A DAY, NOTES: 11-26-16799 TAKING NEXIUM 40 CAPSULE DELAYED RELEASE 1 CAPSULE ORALLY ONCE A DAY, NOTES: 11-26-16799 TAKING FEXOFENADINE HCL 180 MG TABLET 1 TABLET ORALLY ONCE A DAY, NOTES: 11-26-16 08-00 TAKING LASIX 80 MG TABLET 1 TABLET ORALLY EVERY AM AND 1/2 TABLET AT NOON, NOTES: 11-26-161199 TAKING ICAPS CAPSULE 1 CAP(S) ORALLY TWICE A DAY, NOTES: 11-26-161199 TAKING LANTUS 100 UNIT/ML SOLUTION 60 UNITS BID SUBCUTANEOUS BID, NOTES: 11-26-162099 TAKING HUMALOG 100 UNIT/ML SOLUTION SLIDING SCALE SUBCUTANEOUS AC AND HS, NOTES: 11-26-16 1800 TAKING MAGNESIUM 400 MG CAPSULE 2 TAB(S) ORALLY TID, NOTES: 11-26-16799 TAKING ELÍAS MULTI WOMEN TABLET EXTENDED RELEASE ORALLY DAILY, NOTES: 11-26-16799 TAKING METOLAZONE 2.5 MG TABLET 1 TABLET ORALLY WEEKLY, NOTES: WEEK AGO TAKING POTASSIUM CHLORIDE 10 MEQ ER TABLET EXTENDED RELEASE 3 ORALLY TID, NOTES: 11-26-16799 TAKING ADVAIR DISKUS 500-50 MCG/DOSE AEROSOL POWDER BREATH ACTIVATED 1 PUFF INHALATION TWICE A DAY, NOTES: 11-26-162099 TAKING SPIRIVA HANDIHALER 18 MCG CAPSULE 1 CAPSULE INHALATION ONCE A DAY, NOTES: 11-26-162099 TAKING FLONASE 50 MCG/DOSE SPRAY 2 SPRAY IN EACH NOSTRIL NASALLY TWICE A DAY, NOTES: 11-26-16799 TAKING RANITIDINE HCL 150 MG TABLET ORALLY DAILY, NOTES: 11-26-161199 TAKING LEVOTHYROXINE SODIUM 50 MCG TABLET 1 TAB(S) ORALLY DAILY, NOTES: 11-26-161199 TAKING LORAZEPAM 0.5 MG TABLET ORALLY 3 TIME A DAY, NOTES: 11-26-162099 TAKING TRAZODONE HCL 150 MG TABLET 1 TABLET AT BEDTIME ORALLY ONCE A DAY, NOTES: 11-26-162099 TAKING LISINOPRIL 10 MG TABLET ORALLY DAILY, NOTES: 11-26-16799 TAKING VENLAFAXINE HCL 150 MG TABLET ORALLY TWICE A DAY, NOTES: 11-26-162099 TAKING CYMBALTA 30 MG CAPSULE DELAYED RELEASE PARTICLES 1 CAPSULE ORALLY ONCE A DAY, NOTES: 11-26-16799 TAKING TRAMADOL HCL 50 MG TABLET 1-2 ORALLY Q6H PRN MDD 4 #60 TAB IS ONE MONTH SUPPLY NOT-TAKING VALIUM 10 MG TABLET 1 TABLET NEEDED ORALLY 1 TAB 1HR PRE PROC MDD 1, NOTES: 12-12-15729 NOT-TAKING OXYCODONE HCL 5 MG TABLET 2 ORALLY 2 TAB 1HR PRE PROC MDD2, NOTES: 12-12-15729 NOT-TAKING FUROSEMIDE 40 MG TABLET ORALLY AT NOON DAILY NOT-TAKING COLACE 100 MG CAPSULE 1 CAP(S) ORALLY DAILY NEEDED, NOTES: LONG TIME AGO NOT-TAKING BENGAY PAIN RELIEF + MASSAGE 1.4% CREAM 1 DOSE TOPICALLY PRN, NOTES: 07-23-151999 MEDICATION LIST REVIEWED AND RECONCILED WITH THE PATIENT PAST MEDICAL HISTORY POST LAMINECTOMY SYNDROME DIABETES MELLITUS COPD CONGESTIVE HEART FAILURE HEADACHE DEPRESSION OBSESSIVE-COMPULSIVE PERSONALITY DISORDER HYPERTENSION OBSTRUCTIVE SLEEP APNEA LOWER EXTREMITY NEUROPATHY RIGHT LUNG CANCER ALLERGIES CONTRAST MEDIA: ITCHY HIVES: ALLERGY PENICILLIN (FOR ALLERGIES USE ONLY): HIVES: ALLERGY SOCIAL HISTORY GENERAL: TOBACCO USE ARE YOU A:CURRENT SMOKER PATIENT COUNSELED ON THE DANGERS OF TOBACCO USE AND URGED TO QUIT:01/15/2017 ARE YOU INTERESTED IN QUITTING?NOT READY TO QUIT COUNSELED THE PATIENT ON SMOKING EFFECTS, EDUCATION [id number]/13/2017 FAITH [id number] [facility] PFS, CLERGY, PUBLIC HEALTH REFERRALS PFS REFERRAL NEEDED?NO CLERGY REFERRAL NEEDED?NO PUBLIC HEALTH REFERRAL NEEDED?NO HAS THE PATIENT BEEN EDUCATED REGARDING HIS/HER PLAN OF CARE?YES HAS THE PATIENT BEEN EDUCATED REGARDING PAIN, THE RISK FOR PAIN, THE IMPORTANCE OF EFFECTIVE PAIN MANAGEMENT, AND THE PAIN ASSESSMENT PROCESS?YES REVIEW OF SYSTEMS REVIEWED BY: PROVIDER: HUGO VALENTIN . CONSTITUTIONAL: ANY CHANGE IN YOUR MEDICAL CONDITION? NO . CHILLS NO . FEVER NO . INFECTION: DO YOU HAVE NEW INFECTIONS? NO . DO YOU HAVE HISTORY OF MRSA? NO . MUSCULOSKELETAL: ANY NEW PATTERNS OF PAIN OR NUMBNESS? YES PT HAD FACET BLOCK 11/27/16, STATES IT WAS EFFECTIVE FOR TWO DAYS ONLY, THEN RIGHT BACK UP TO PRE PROCEDURE PAIN LEVEL. . GASTROENTEROLOGY: ANY NEW CHANGE IN BOWEL CONTROL? NO . GENITOURINARY: ANY NEW CHANGE IN BLADDER CONTROL? NO . IS THERE A CHANCE YOU COULD BE ? NO . HEMATOLOGY/LYMPH: DO YOU TAKE ANY BLOOD THINNERS? (FOR EXAMPLE- COUMADIN, PLAVIX, AGGRENOX, PLATEL, PRADAXA, OR XARELTO) NO . WHEN WAS YOUR LAST DOSE? DATE: TIME: . NEUROLOGY: HAVE YOU FALLEN IN THE PAST 6 MONTHS? NO . ANY NEW EXTREMITY NUMBNESS OR WEAKNESS? NO . CARDIOLOGY: DO YOU HAVE A PACEMAKER OR DEFIBRILLATOR? NO . RESPIRATORY: HAVE YOU BEEN SICK IN THE PAST WEEK? NO . FEVER NO . FLU LIKE SYMPTOMS? NO . COUGH NO . INTEGUMENTARY: DO YOU HAVE ANY RASHES OR OPEN SORES? NO . ALLERGIC/IMMUNO: ARE YOU ALLERGIC TO SHELLFISH OR IV DYE? NO . ANY NEW ALLERGIES? NO . PSYCHIATRIC: DO YOU HAVE THOUGHTS OF HURTING YOURSELF OR SOMEONE ELSE? NO . ARE YOU ABUSED, NEGLECTED, OR IN AN UNSAFE ENVIRONMENT? NO . ENDOCRINOLOGY: ARE YOU DIABETIC? NO . OTHER: DO YOU NEED ANY PRESCRIPTIONS? NO . IF YES, PLEASE LIST: ____ . ANY NEW PROBLEMS WITH YOUR MEDICATIONS? NO . WHEN DID YOU LAST EAT? ____ . WHEN DID YOU LAST DRINK? ____ . WHAT DID YOU LAST DRINK? ____ . NAME OF PERSON DRIVING YOU HOME? ____ . DO YOU HAVE ANY OTHER QUESTIONS OR CONCERNS YES PT REPORTS THAT TRAMADOL IS INEFFECTIVE AND WOULD LIKE TO DISCUSS A DIFFERENT MEDICATION FOR PAIN CONTROL. . VITAL SIGNS WT 232 LBS, HT 66 IN, BMI 37.44 INDEX, BP 132/63 MM HG, HR 95 /MIN, RR 20 /MIN, TEMP 97.5 F, OXYGEN SAT % 95%, SAFE IN ENV? (Y/N) YES, NA INITIALS AW 1000, REVIEWED BY: TERESA. EXAMINATION GENERAL EXAMINATION: LUNGS:LUNG SOUNDS ARE CLEAR. HEART:HEART RATE REGULAR. MUSCULOSKELETAL:*SPECIFIC POINT TENDERNESS OVER BILATERAL FACET L34-L4/5 WITH FACET LOADING.. DIAGNOSTIC:MRI L/S SPINE 2015-REVIEWED. ASSESSMENTS POST LAMINECTOMY SYNDROME - M96.1 (PRIMARY) CHRONIC PRESCRIPTION OPIATE USE - Z79.899 LUMBAR SPONDYLOLYSIS - M43.06 TREATMENT POST LAMINECTOMY SYNDROME STOP TRAMADOL HCL TABLET, 50 MG, 1-2, ORALLY, Q6H PRN MDD 4 #60 TAB IS ONE MONTH SUPPLY, 30 DAY(S), 60 REFILL CYMBALTA CAPSULE DELAYED RELEASE PARTICLES, 30 MG, 1 CAPSULE, ORALLY, ONCE A DAY, 30 DAY(S), 30 CAPSULE, REFILLS 2, NOTES: 11-26-16 0800 START PERCOCET TABLET, 5-325 MG, 1 TABLET NEEDED, ORALLY, EVERY 6 HRS PRN MDD4, 30 DAY(S), 120, REFILLS 0 PROCEDURE CODES FA211 ESTABILISHED PATIENT [facility] FACILITY CHARGE G7230 PAIN ASSESS POS TOOL F/U PLAN DOC G8427 DOC MEDS VERIFIED W/PT OR RE DISPOSITION & COMMUNICATION FOLLOW UP 2 MONTHS ELECTRONICALLY SIGNED BY HOMERO UGALDE ON 01/22/2017 AT 08:30 PM EDT DISCLAIMER : THIS IS A VISIT SUMMARY EXTRACTED FROM THE [employer] CHART. IT IS NOT A COPY OF THE [employer] PROGRESS NOTE. MTDD
== END ==
LOC: M PAIN 10:00
PROVIDERS: ATTEND Nurse Practitioner Family
DX: M96.1 Postlaminectomy syndrome, not elsewhere classified (principal); M43.06 Spondylolysis, lumbar region; E11.9 Type 2 diabetes mellitus without complications; J44.9 Chronic obstructive pulmonary disease, unspecified; F32.9 Major depressive disorder, single episode, unspecified; I10 Essential (primary) hypertension; G47.33 Obstructive sleep apnea (adult) (pediatric); F17.200 Nicotine dependence, unspecified, uncomplicated; Z91.041 Radiographic dye allergy status; Z88.0 Allergy status to penicillin; Z79.82 Long term (current) use of aspirin; Z79.4 Long term (current) use of insulin; Z79.891 Long term (current) use of opiate analgesic; Z79.899 Other long term (current) drug therapy

== ENCOUNTER → 2017-01-17 | Outpatient (REF) | payer MEDICARE, MEDICAID ==
[2017-01-17 13:14] LABS: BASO % 0.6 % (0.0-1.0); EOS # 0.3 K/mm3 (0.0-0.50); EOS % 3.6 % (0.0-3.0); LARGE UNSTAINED CELL # 0.1 K/mm3 (0.0-0.4); LARGE UNSTAINED CELL % 1.1 % (0.0-4.0); LYMPH # 1.4 K/mm3 (1.5-4.5); LYMPH % 14.3 % (24.0-44.0); MEAN CORPUSCULAR HEMOGLOBIN 28.4 pg (27.0-33.0); MEAN CORPUSCULAR HGB CONC 32.6 g/dl (32.0-36.5); MONO # 0.6 K/mm3 (0.0-0.8); MONO % 7.2 % (0.0-5.0); NEUTROPHILS # 6.4 K/mm3 (1.8-7.7); NEUTROPHILS % 73.3 % (36.0-66.0); PLATELET COUNT, AUTOMATED 289 k/mm3 (150-450); RED CELL DISTRIBUTION WIDTH 16.3 % (11.5-14.5); WHITE BLOOD COUNT 8.8 K/mm3 (4.0-10.0)
[2017-01-17 13:36] LABS: FREE T4 1.21 NG/DL (0.76-1.46)
== END ==
LOC: M LABDRWAD 12:24
PROVIDERS: ATTEND Family Medicine
DX: E78.5 Hyperlipidemia, unspecified (principal); E03.9 Hypothyroidism, unspecified; E11.65 Type 2 diabetes mellitus with hyperglycemia

== ENCOUNTER → 2017-02-19 | Outpatient (CLI) | payer MEDICARE, MEDICAID ==
--- NOTE | 2017-02-19 11:34 | REPMRS ---
Patient History The patient states she has not had a clinical breast exam in over a year. Family history of colorectal cancer in mother at age 50 or over. Digital Mammo Screening Bilat: February 19, 2017 - Exam #: [id number] Bilateral CC and MLO view(s) were taken. Technologist: Sahara Monterroso Technologist Prior study comparison: February 19, 2016, bilateral digital mammo screening bilat performed at [facility]. February 13, 2015, bilateral digital mammo screening bilat performed at [facility]. FINDINGS: There are scattered fibroglandular densities. There has been no change in the appearance of the mammogram from the prior studies. There is a mild amount of residual fibroglandular tissue which is fairly symmetric. There is no interval development of dominant mass, architectural distortion, or clustered microcalcification suggestive of malignancy. ASSESSMENT: BI-RADS/ACR category 1 mammogram. Negative. Recommendation Routine screening mammogram in 1 year (for women over age 40). This mammogram was interpreted with the aid of an FDA-approved computer-aided dectection system. Electronically Signed By: Alfred Hughes MD 02/19/17 7525
== END ==
LOC: M RAD 09:43
PROVIDERS: ATTEND Family Medicine
DX: Z12.31 Encounter for screening mammogram for malignant neoplasm of breast (principal)

== ENCOUNTER 2017-02-25 18:41 | Emergency (ER) | payer MEDICARE, MEDICAID ==
[~2017-02-25] VITALS: Ht 167.6 cm; Wt 115.0 kg
[2017-02-25] MEDS ORDERED: OXYC1TAB23 PO (18:58)
[2017-02-25 19:07] VITALS: BP 128/65
[2017-02-25] MEDS ORDERED: OXYMETAZOLINE NASAL SPRAY (AFRIN) ONE (20:30)
== END 2017-02-25 21:00 | disposition home or self-care (01) ==
LOC: EDBD 18:41 → M ED 18:41
DX: R04.0 Epistaxis (principal); J44.9 Chronic obstructive pulmonary disease, unspecified; F17.200 Nicotine dependence, unspecified, uncomplicated; Z79.82 Long term (current) use of aspirin; Z79.899 Other long term (current) drug therapy; Z79.4 Long term (current) use of insulin; Z88.0 Allergy status to penicillin

== ENCOUNTER → 2017-03-17 | Outpatient (CLI) | payer MEDICARE, MEDICAID | LOC: M PAIN 10:00 | PROVIDERS: ATTEND Nurse Practitioner Family | DX: G89.29 Other chronic pain (principal); M96.1 Postlaminectomy syndrome, not elsewhere classified; Z79.899 Other long term (current) drug therapy; M43.06 Spondylolysis, lumbar region; E11.9 Type 2 diabetes mellitus without complications; J44.9 Chronic obstructive pulmonary disease, unspecified; I50.9 Heart failure, unspecified; R51 Headache; F32.9 Major depressive disorder, single episode, unspecified; F42.9 Obsessive-compulsive disorder, unspecified; I11.0 Hypertensive heart disease with heart failure; G47.33 Obstructive sleep apnea (adult) (pediatric); Z85.118 Personal history of other malignant neoplasm of bronchus and lung; Z90.2 Acquired absence of lung [part of]; F17.210 Nicotine dependence, cigarettes, uncomplicated; Z79.82 Long term (current) use of aspirin; Z79.4 Long term (current) use of insulin; Z79.891 Long term (current) use of opiate analgesic ==

== ENCOUNTER → 2017-06-24 | Outpatient (REF) | payer MEDICARE, MEDICAID ==
[2017-06-24 13:47] LABS: ESTIMATED AVERAGE GLUCOSE 151 MG/DL (60-110); HEMOGLOBIN A1c 6.9 %
== END ==
LOC: M LABDRWAD 12:20
DX: E11.65 Type 2 diabetes mellitus with hyperglycemia (principal)
CPT/HCPCS: 83036

== ENCOUNTER → 2017-06-27 | Outpatient (CLI) | payer MEDICARE, MEDICAID | LOC: M PAIN 13:30 | DX: M96.1 Postlaminectomy syndrome, not elsewhere classified (principal); M43.06 Spondylolysis, lumbar region; G89.29 Other chronic pain; E11.9 Type 2 diabetes mellitus without complications; J44.9 Chronic obstructive pulmonary disease, unspecified; I11.0 Hypertensive heart disease with heart failure; I50.9 Heart failure, unspecified; F17.210 Nicotine dependence, cigarettes, uncomplicated; Z79.4 Long term (current) use of insulin; Z79.82 Long term (current) use of aspirin; Z79.891 Long term (current) use of opiate analgesic; Z79.899 Other long term (current) drug therapy; Z91.041 Radiographic dye allergy status; Z88.0 Allergy status to penicillin; Z85.118 Personal history of other malignant neoplasm of bronchus and lung; Z90.2 Acquired absence of lung [part of] | CPT/HCPCS: G0463 ==

== ENCOUNTER → 2017-08-25 | Outpatient (REF) | payer MEDICARE, MEDICAID ==
[2017-08-25 13:42] LABS: CHOLESTEROL LEVEL 140 MG/DL (<200); CHOLESTEROL RISK RATIO 3.333 (<5); HDL CHOLESTEROL 42 MG/DL (>40); LDL CHOLESTEROL 78.2 MG/DL (<100); NON-HDL-C 98 MG/DL; TRIGLYCERIDES LEVEL 99 MG/DL (<150)
== END ==
LOC: M LABDRWAD 12:17
DX: E78.2 Mixed hyperlipidemia (principal)
CPT/HCPCS: 80061

== ENCOUNTER → 2017-10-20 | Outpatient (CLI) | payer MEDICARE, MEDICAID | LOC: M PAIN 09:15 | DX: M96.1 Postlaminectomy syndrome, not elsewhere classified (principal); M43.06 Spondylolysis, lumbar region; G89.29 Other chronic pain; E11.9 Type 2 diabetes mellitus without complications; F17.210 Nicotine dependence, cigarettes, uncomplicated; J44.9 Chronic obstructive pulmonary disease, unspecified; G47.33 Obstructive sleep apnea (adult) (pediatric); E78.5 Hyperlipidemia, unspecified; I12.9 Hypertensive chronic kidney disease with stage 1 through stage 4 chronic kidney disease, or unspecified chronic kidney disease; N18.3 Chronic kidney disease, stage 3 (moderate); E03.9 Hypothyroidism, unspecified; F32.9 Major depressive disorder, single episode, unspecified; Z79.82 Long term (current) use of aspirin; Z79.4 Long term (current) use of insulin; Z79.899 Other long term (current) drug therapy; Z88.0 Allergy status to penicillin; Z91.041 Radiographic dye allergy status; Z87.39 Personal history of other diseases of the musculoskeletal system and connective tissue; Z86.79 Personal history of other diseases of the circulatory system | CPT/HCPCS: G0463 ==

== ENCOUNTER → 2017-10-28 | Outpatient (REF) | payer MEDICARE, MEDICAID ==
[2017-10-28 14:09] LABS: SODIUM,RANDOM URINE 47 MEQ/L
[2017-10-28 14:11] LABS: OSMOLALITY URINE 247 MOSM/KG (500-800)
[2017-10-28 14:15] LABS: OSMOLALITY SERUM 267 MOSM/KG (280-301)
[2017-10-28 14:16] LABS: SODIUM LEVEL 128 MEQ/L (136-145)
== END ==
LOC: M LAB REF 13:09
DX: E87.1 Hypo-osmolality and hyponatremia (principal)
CPT/HCPCS: 83930

== ENCOUNTER → 2017-11-14 | Outpatient (REF) | payer MEDICARE, MEDICAID ==
[2017-11-14 16:04] LABS: CPK CREATINE PHOSPHOKINASE 55 U/L (26-192)
[2017-11-14 16:09] LABS: ESTIMATED AVERAGE GLUCOSE 212 MG/DL (60-110)
== END ==
LOC: M SFHCADAM 11:43
DX: M79.1 Myalgia (principal); E11.9 Type 2 diabetes mellitus without complications
CPT/HCPCS: 82550

== ENCOUNTER → 2017-11-21 | Outpatient (REF) | payer MEDICARE, MEDICAID ==
[2017-11-21 20:28] LABS: BASO # 0.1 10^3/uL (0.0-0.2); BASO % 0.8 % (0.0-1.0); EOS # 0.6 10^3/uL (0.0-0.50); EOS % 6.2 % (0.0-3.0); HEMATOCRIT 34.9 % (36.0-47.0); HEMOGLOBIN 11.7 g/dl (12.0-15.5); IMMATURE GRANULOCYTE % 0.4 % (0-3.0); LYMPH # 1.6 10^3/uL (1.5-4.5); LYMPH % 15.9 % (24.0-44.0); MEAN CORPUSCULAR HEMOGLOBIN 28.9 pg (27.0-33.0); MEAN CORPUSCULAR HGB CONC 33.5 g/dl (32.0-36.5); MEAN CORPUSCULAR VOLUME 86.2 fl (80.0-96.0); MONO # 0.9 10^3/uL (0.0-0.8); MONO % 8.2 % (0.0-5.0); NEUTROPHILS # 7.1 10^3/uL (1.8-7.7); NEUTROPHILS % 68.5 % (36.0-66.0); PLATELET COUNT, AUTOMATED 310 10^3/uL (150-450); RED BLOOD COUNT 4.05 10^6/uL (4.00-5.40); RED CELL DISTRIBUTION WIDTH 15.2 % (11.5-14.5); WHITE BLOOD COUNT 10.3 10^3/uL (4.0-10.0)
[2017-11-21 20:32] LABS: ALBUMIN 3.4 GM/DL (3.2-5.2); ALBUMIN/GLOBULIN RATIO 0.92 (1.00-1.93); ALKALINE PHOSPHATASE 157 U/L (45-117); ALT/SGPT 21 U/L (12-78); AMYLASE 33 U/L (25-115); ANION GAP 6 MEQ/L (8-16); AST/SGOT 9 U/L (7-37); BILIRUBIN,TOTAL 0.3 MG/DL (0.2-1.0); BLOOD UREA NITROGEN 26 MG/DL (7-18); CALCIUM LEVEL 8.8 MG/DL (8.8-10.2); CARBON DIOXIDE LEVEL 33 MEQ/L (21-32); CHLORIDE LEVEL 94 MEQ/L (98-107); CREATININE FOR GFR 1.08 MG/DL (0.55-1.30); GLOMERULAR FILTRATION RATE 53.1 (>39); GLUCOSE, FASTING 221 MG/DL (70-100); LIPASE 84 U/L (73-393); POTASSIUM SERUM 4.9 MEQ/L (3.5-5.1); SODIUM LEVEL 133 MEQ/L (136-145); TOTAL PROTEIN 7.1 GM/DL (6.4-8.2)
== END ==
LOC: M SFHCADAM 16:45
DX: R10.10 Upper abdominal pain, unspecified (principal)
CPT/HCPCS: 82150

== ENCOUNTER 2017-11-22 00:43 | Emergency (ER) | payer MEDICARE, MEDICAID ==
[2017-11-22] MEDS: ONDANSETRON 4MG/2ML VIAL (J2405) IV (02:21)
[2017-11-22] MEDS: MORPHINE 4 MG/ML 1ML VIAL/SYRINGE (J2270) IV (02:21)
[2017-11-22 02:23] LABS: BASO # 0.1 10^3/uL (0.0-0.2); BASO % 0.6 % (0.0-1.0); EOS # 0.8 10^3/uL (0.0-0.50); EOS % 6.4 % (0.0-3.0); HEMATOCRIT 35.3 % (36.0-47.0); HEMOGLOBIN 11.5 g/dl (12.0-15.5); IMMATURE GRANULOCYTE % 0.4 % (0-3.0); LYMPH # 1.8 10^3/uL (1.5-4.5); LYMPH % 15.1 % (24.0-44.0); MEAN CORPUSCULAR HEMOGLOBIN 27.2 pg (27.0-33.0); MEAN CORPUSCULAR HGB CONC 32.6 g/dl (32.0-36.5); MEAN CORPUSCULAR VOLUME 83.5 fl (80.0-96.0); MONO # 1.1 10^3/uL (0.0-0.8); MONO % 8.6 % (0.0-5.0); NEUTROPHILS # 8.4 10^3/uL (1.8-7.7); NEUTROPHILS % 68.9 % (36.0-66.0); PLATELET COUNT, AUTOMATED 270 10^3/uL (150-450); RED BLOOD COUNT 4.23 10^6/uL (4.00-5.40); RED CELL DISTRIBUTION WIDTH 15.3 % (11.5-14.5); WHITE BLOOD COUNT 12.2 10^3/uL (4.0-10.0)
[2017-11-22 02:50] LABS: LACTIC ACID SEPSIS PROTOCOL 1.1 MMOL/L (0.4-2.0)
[2017-11-22 02:51] LABS: ALBUMIN 3.1 GM/DL (3.2-5.2); ALBUMIN/GLOBULIN RATIO 0.78 (1.00-1.93); ALKALINE PHOSPHATASE 129 U/L (45-117); ALT/SGPT 19 U/L (12-78); ANION GAP 5 MEQ/L (8-16); AST/SGOT 9 U/L (7-37); BILIRUBIN,DIRECT < 0.1 MG/DL (0.0-0.2); BILIRUBIN,TOTAL 0.3 MG/DL (0.2-1.0); BLOOD UREA NITROGEN 23 MG/DL (7-18); CALCIUM LEVEL 8.5 MG/DL (8.8-10.2); CARBON DIOXIDE LEVEL 32 MEQ/L (21-32); CHLORIDE LEVEL 94 MEQ/L (98-107); CPK CREATINE PHOSPHOKINASE 68 U/L (26-192); CREATININE FOR GFR 0.99 MG/DL (0.55-1.30); GLOMERULAR FILTRATION RATE 58.7 (>39); GLUCOSE, FASTING 147 MG/DL (70-100); LIPASE 84 U/L (73-393); POTASSIUM SERUM 4.6 MEQ/L (3.5-5.1); SODIUM LEVEL 131 MEQ/L (136-145); TOTAL PROTEIN 7.1 GM/DL (6.4-8.2); TROPONIN I < 0.02 NG/ML (< 0.10)
[2017-11-22 02:52] LABS: CK-MB VALUE MASS 1.2 NG/ML (<3.6); MB/CK RELATIVE INDEX 1.76 (< OR =4)
[2017-11-22] MEDS ORDERED: ISOVUE-370 76% 100ML VIAL (Q9967) As Ordered (03:13)
[2017-11-22] MEDS: SUCRALFATE 1 GM TAB PO (05:15)
[2017-11-22] MEDS: FAMOTIDINE 20 MG TAB PO (05:15)
== END 2017-11-22 05:35 | disposition home or self-care (01) ==
LOC: M ED 00:43
DX: R10.13 Epigastric pain (principal); I25.10 Atherosclerotic heart disease of native coronary artery without angina pectoris; I50.9 Heart failure, unspecified; E11.9 Type 2 diabetes mellitus without complications; I10 Essential (primary) hypertension; K21.9 Gastro-esophageal reflux disease without esophagitis; J44.9 Chronic obstructive pulmonary disease, unspecified; Z72.0 Tobacco use; K59.00 Constipation, unspecified; K56.7 Ileus, unspecified; R16.0 Hepatomegaly, not elsewhere classified; N32.89 Other specified disorders of bladder; Z90.49 Acquired absence of other specified parts of digestive tract; Z79.82 Long term (current) use of aspirin; Z79.4 Long term (current) use of insulin; Z79.899 Other long term (current) drug therapy; Z88.0 Allergy status to penicillin
CPT/HCPCS: J2270

== ENCOUNTER → 2017-12-05 | Outpatient (REF) | payer MEDICARE, MEDICAID ==
[2017-12-05 12:47] LABS: BASO % 0.5 % (0.0-1.0); EOS # 0.4 10^3/uL (0.0-0.50); EOS % 4.1 % (0.0-3.0); HEMATOCRIT 35.9 % (36.0-47.0); HEMOGLOBIN 11.5 g/dl (12.0-15.5); IMMATURE GRANULOCYTE % 0.5 % (0-3.0); LYMPH # 1.2 10^3/uL (1.5-4.5); LYMPH % 13.5 % (24.0-44.0); MEAN CORPUSCULAR HEMOGLOBIN 27.4 pg (27.0-33.0); MEAN CORPUSCULAR VOLUME 85.5 fl (80.0-96.0); MONO # 0.6 10^3/uL (0.0-0.8); MONO % 7.1 % (0.0-5.0); NEUTROPHILS # 6.3 10^3/uL (1.8-7.7); NEUTROPHILS % 74.3 % (36.0-66.0); PLATELET COUNT, AUTOMATED 284 10^3/uL (150-450); RED CELL DISTRIBUTION WIDTH 15.2 % (11.5-14.5); WHITE BLOOD COUNT 8.5 10^3/uL (4.0-10.0)
[2017-12-05 13:15] LABS: ERYTHROCYTE SEDIMENTATION RATE 16 mm/hr (0-30)
[2017-12-05 13:31] LABS: ESTIMATED AVERAGE GLUCOSE 194 MG/DL (60-110); HEMOGLOBIN A1c 8.4 %; VITAMIN B12 LEVEL 512 PG/ML (247-911)
[2017-12-05 13:32] LABS: ALBUMIN 3.1 GM/DL (3.2-5.2); ALBUMIN/GLOBULIN RATIO 0.84 (1.00-1.93); ALKALINE PHOSPHATASE 154 U/L (45-117); ALT/SGPT 17 U/L (12-78); ANION GAP 6 MEQ/L (8-16); AST/SGOT 9 U/L (7-37); BILIRUBIN,TOTAL 0.2 MG/DL (0.2-1.0); BLOOD UREA NITROGEN 23 MG/DL (7-18); CALCIUM LEVEL 8.4 MG/DL (8.8-10.2); CARBON DIOXIDE LEVEL 33 MEQ/L (21-32); CHLORIDE LEVEL 95 MEQ/L (98-107); CREATININE FOR GFR 0.99 MG/DL (0.55-1.30); FOLATE > 24.0 NG/ML (>5.4); GLOMERULAR FILTRATION RATE 58.7 (>39); GLUCOSE, FASTING 270 MG/DL (70-100); POTASSIUM SERUM 4.9 MEQ/L (3.5-5.1); RHEUMATOID FACTOR QUANT 12.9 IU/ML (<15.0); SODIUM LEVEL 134 MEQ/L (136-145); TOTAL PROTEIN 6.8 GM/DL (6.4-8.2)
[2017-12-06 14:10] LABS: ANTI DOUBLE STRAND-DNA AB <1 IU/mL (0-9); ANTINUCLEAR ANTIBODIES DIRECT Negative (Negative); SJOGREN'S ANTI SS-A <0.2 AI (0.0-0.9); SJOGREN'S ANTI SS-B <0.2 AI (0.0-0.9)
[2017-12-09 00:07] LABS: VITAMIN E(ALPHA TOCOPHEROL) 20.3 mg/L (9.0-29.0); VITAMIN E(GAMMA TOCOPHEROL) 0.3 mg/L (0.5-4.9)
[2017-12-10 08:06] LABS: VITAMIN B1 LEVEL WHOLE BLOOD 136.8 nmol/L (66.5-200.0); VITAMIN B6,PYRIDOXAL PHOSPHATE 20.5 ug/L (2.0-32.8)
[2017-12-10 11:44] LABS: ALBUMIN % 55.2 % (55.8-66.1); ALPHA-1-GLOBULIN % 6.8 % (2.9-4.9); ALPHA-2-GLOBULINS % 14.6 % (7.1-11.8); BETA-1-GLOBULINS % 6.3 % (4.7-7.2)
[2017-12-10 11:45] LABS: ALBUMIN 3.75 GM/DL (3.29-5.55); ALPHA-1-GLOBULINS 0.46 GM/DL (0.17-0.41); ALPHA-2-GLOBULINS 0.99 GM/DL (0.42-0.99); BETA-1-GLOBULINS 0.43 GM/DL (0.28-0.60); BETA-2-GLOBULINS 0.28 GM/DL (0.19-0.55); BETA-2-GLOBULINS % 4.1 % (3.2-6.5); GAMMA GLOBULINS 0.88 GM/DL (0.65-1.58)
== END ==
LOC: M LABDRWAD 12:34
DX: F09 Unspecified mental disorder due to known physiological condition (principal); E07.9 Disorder of thyroid, unspecified
CPT/HCPCS: 82746

== ENCOUNTER → 2018-01-13 | Outpatient (CLI) | payer MEDICARE | LOC: M ADAMS 15:52 | DX: M16.11 Unilateral primary osteoarthritis, right hip (principal); M53.88 Other specified dorsopathies, sacral and sacrococcygeal region; M25.551 Pain in right hip | CPT/HCPCS: 72170 ==

== ENCOUNTER 2018-01-19 11:56 | Day surgery (SDC) | payer MEDICARE, MEDICAID ==
[2018-01-19] MEDS ORDERED: PROPOFOL 500 MG/50 ML VIAL As Ordered (12:09)
[2018-01-19] MEDS ORDERED: fentaNYL 100 MCG/2 ML INJECTION (J3010) As Ordered (12:10)
[2018-01-19] MEDS ORDERED: LIDOCAINE 2% INJ 100 MG/5 ML SDV (FOR ANES.) As Ordered (12:10)
[2018-01-19] MEDS ORDERED: ALBUTEROL SULFATE 2.5 MG/0.5 ML INH NEB SOLN As Ordered (12:51)
[2018-01-19 12:52] LABS: BEDSIDE GLUCOSE 177 MG/DL (83-110)
[2018-01-19] MEDS: ALBUTEROL SULFATE 2.5 MG/0.5 ML INH NEB SOLN INH (14:17)
== END 2018-01-19 15:19 | disposition home or self-care (01) ==
LOC: M OPP 11:56
DX: R19.4 Change in bowel habit (principal); Z86.010 Personal history of colon polyps; K64.0 First degree hemorrhoids; K57.30 Diverticulosis of large intestine without perforation or abscess without bleeding; R10.13 Epigastric pain; K22.8 Other specified diseases of esophagus; K31.89 Other diseases of stomach and duodenum; I50.9 Heart failure, unspecified; I11.0 Hypertensive heart disease with heart failure; E78.5 Hyperlipidemia, unspecified; E11.9 Type 2 diabetes mellitus without complications; E03.9 Hypothyroidism, unspecified; K57.32 Diverticulitis of large intestine without perforation or abscess without bleeding; Z86.19 Personal history of other infectious and parasitic diseases; K21.9 Gastro-esophageal reflux disease without esophagitis; R12 Heartburn; D64.9 Anemia, unspecified; R23.3 Spontaneous ecchymoses; R06.02 Shortness of breath; M19.90 Unspecified osteoarthritis, unspecified site; M54.9 Dorsalgia, unspecified; M81.0 Age-related osteoporosis without current pathological fracture; F03.90 Unspecified dementia, unspecified severity, without behavioral disturbance, psychotic disturbance, mood disturbance, and anxiety; F32.9 Major depressive disorder, single episode, unspecified; R51 Headache; Z78.0 Asymptomatic menopausal state; J45.909 Unspecified asthma, uncomplicated; J44.9 Chronic obstructive pulmonary disease, unspecified; Z85.118 Personal history of other malignant neoplasm of bronchus and lung; R06.83 Snoring; G47.30 Sleep apnea, unspecified; N18.3 Chronic kidney disease, stage 3 (moderate); J32.9 Chronic sinusitis, unspecified; F17.210 Nicotine dependence, cigarettes, uncomplicated; Z88.0 Allergy status to penicillin; Z79.82 Long term (current) use of aspirin; Z79.899 Other long term (current) drug therapy; Z79.4 Long term (current) use of insulin; Z80.0 Family history of malignant neoplasm of digestive organs
CPT/HCPCS: 45380

== ENCOUNTER → 2018-01-20 | Outpatient (CLI) | payer MEDICARE, MEDICAID | LOC: M PAIN 09:45 | DX: M96.1 Postlaminectomy syndrome, not elsewhere classified (principal); E11.9 Type 2 diabetes mellitus without complications; J44.9 Chronic obstructive pulmonary disease, unspecified; G47.33 Obstructive sleep apnea (adult) (pediatric); E78.5 Hyperlipidemia, unspecified; I12.9 Hypertensive chronic kidney disease with stage 1 through stage 4 chronic kidney disease, or unspecified chronic kidney disease; N18.3 Chronic kidney disease, stage 3 (moderate); E03.9 Hypothyroidism, unspecified; F32.9 Major depressive disorder, single episode, unspecified; F17.210 Nicotine dependence, cigarettes, uncomplicated; Z79.82 Long term (current) use of aspirin; Z79.4 Long term (current) use of insulin; Z79.899 Other long term (current) drug therapy; Z88.0 Allergy status to penicillin; Z91.041 Radiographic dye allergy status; Z90.2 Acquired absence of lung [part of]; Z86.79 Personal history of other diseases of the circulatory system; Z87.39 Personal history of other diseases of the musculoskeletal system and connective tissue | CPT/HCPCS: G0463 ==

== ENCOUNTER → 2018-04-06 | Outpatient (CLI) | payer MEDICARE, MEDICAID | LOC: M PAIN 11:45 | DX: M96.1 Postlaminectomy syndrome, not elsewhere classified (principal); E11.22 Type 2 diabetes mellitus with diabetic chronic kidney disease; I12.9 Hypertensive chronic kidney disease with stage 1 through stage 4 chronic kidney disease, or unspecified chronic kidney disease; N18.3 Chronic kidney disease, stage 3 (moderate); J44.9 Chronic obstructive pulmonary disease, unspecified; G47.33 Obstructive sleep apnea (adult) (pediatric); E78.5 Hyperlipidemia, unspecified; E03.9 Hypothyroidism, unspecified; F32.9 Major depressive disorder, single episode, unspecified; F02.80 Dementia in other diseases classified elsewhere, unspecified severity, without behavioral disturbance, psychotic disturbance, mood disturbance, and anxiety; F17.210 Nicotine dependence, cigarettes, uncomplicated; E66.01 Morbid (severe) obesity due to excess calories; Z68.41 Body mass index [BMI] 40.0-44.9, adult; Z79.82 Long term (current) use of aspirin; Z79.4 Long term (current) use of insulin; Z79.899 Other long term (current) drug therapy; Z88.0 Allergy status to penicillin; Z91.041 Radiographic dye allergy status; Z90.2 Acquired absence of lung [part of]; Z87.39 Personal history of other diseases of the musculoskeletal system and connective tissue; Z86.79 Personal history of other diseases of the circulatory system | CPT/HCPCS: G0463 ==

== ENCOUNTER → 2018-04-27 | Outpatient (CLI) | payer MEDICARE, MEDICAID ==
[~2018-04-27] MED LIST changes: +ACET500T15 PO; -ACET50TAOT PO; +ALBU83IN NEB; +ALLE10TA2 PO; +ASPI1TAB15 PO; +CARA1TAB6 PO; +CLON0.5T8 PO; +DICY20TA PO; -DOCQ100C PO; +DOCQ100C5 PO; +DOCU240C9 PO; +DONE5TAB64 PO; +DONETAB6 PO; -DRIS50002 PO; +DRIS50003 PO; +FEXO60CA PO; +FISH1200 PO; +FISH120012 PO; +FURO80TA2 PO; -GABA-282 PO; +GABA-843 PO; +KLOR10TA76 PO; +LANTINJ4 SC; -LASI80TA PO; +LASI80TA3 PO; +LEVA750T7 PO; +MAGN400T PO; +MICR10CA PO; +NICO21DI6 TD; +OMEP40CA2 PO; +PATIENT COMMENT; +PEPC1TAB5 PO; +POTA1TAB23; +PRESCAP PO; +SPIR-10 PO; +TRAZ-163 PO; +VITA-110 PO; +VITMTA PO; -ZYVO100T PO; +ZYVO1TAB PO; +oxygen; +vitafusion
--- NOTE | 2018-04-27 10:27 | REP ---
Clinical: Chronic obstructive pulmonary disease. Technique: PA and lateral. Comparison: 08/13/2017. Findings: Mediastinum and cardiac silhouette are stable within normal limits. Diffuse chronic interstitial changes with scattered scarring consistent with COPD. Multiple old healed right rib fractures. No acute consolidation, effusion, or pneumothorax identified. Surgical clips noted overlying the mediastinum. Impression: Chronic changes. No acute cardiopulmonary process identified. Electronically Signed by Ki Garcia MD 04/27/2018 10:19 A
== END ==
LOC: M ADAMS 09:07
PROVIDERS: ATTEND Internal Medicine Pulmonary Disease
DX: J44.9 Chronic obstructive pulmonary disease, unspecified (principal)

== ENCOUNTER → 2018-04-27 | Outpatient (CLI) | payer MEDICARE, MEDICAID ==
[2018-04-27 12:21] LABS: ALBUMIN 3.2 GM/DL (3.2-5.2); BASO # 0.1 10^3/uL (0.0-0.2); BASO % 0.3 % (0.0-1.0); BILIRUBIN,TOTAL 0.2 MG/DL (0.2-1.0); CALCIUM LEVEL 8.7 MG/DL (8.8-10.2); CHOLESTEROL RISK RATIO 3.933 (<5); CREATININE FOR GFR 0.99 MG/DL (0.55-1.30); EOS # 0.1 10^3/uL (0.0-0.50); EOS % 0.5 % (0.0-3.0); GLOMERULAR FILTRATION RATE 58.7 (>39); HEMATOCRIT 41.1 % (36.0-47.0); HEMOGLOBIN 13.8 g/dl (12.0-15.5); LYMPH # 2.4 10^3/uL (1.5-4.5); LYMPH % 14.3 % (24.0-44.0); MEAN CORPUSCULAR HGB CONC 33.6 g/dl (32.0-36.5); MEAN CORPUSCULAR VOLUME 89.3 fl (80.0-96.0); MONO # 1.6 10^3/uL (0.0-0.8); MONO % 9.4 % (0.0-5.0); NEUTROPHILS # 12.4 10^3/uL (1.8-7.7); NEUTROPHILS % 74.5 % (36.0-66.0); PLATELET COUNT, AUTOMATED 286 10^3/uL (150-450); POTASSIUM SERUM 4.8 MEQ/L (3.5-5.1); TOTAL PROTEIN 6.7 GM/DL (6.4-8.2); WHITE BLOOD COUNT 16.7 10^3/uL (4.0-10.0)
== END ==
LOC: M LABDRWAD 09:02
PROVIDERS: ATTEND Physician Assistant
DX: I10 Essential (primary) hypertension (principal)

== ENCOUNTER → 2018-05-07 | Outpatient (REF) | payer MEDICARE, MEDICAID | LOC: M SFHCADAM 19:25 | PROVIDERS: ATTEND Physician Assistant | DX: R19.7 Diarrhea, unspecified (principal) ==

== ENCOUNTER → 2018-06-12 | Outpatient (CLI) | payer MEDICARE, MEDICAID ==
--- NOTE | 2018-06-12 14:03 | REPMRS ---
Patient History The patient states she has not had a clinical breast exam in over a year. Patient is postmenopausal and has history of lung cancer at age 71. Family history of colorectal cancer at age 50 or over in mother, breast cancer at age 74 in sister. Digital Woman Screen Mammo: June 12, 2018 - Exam #: [id number] Bilateral CC and MLO view(s) were taken. Technologist: Jessica Arenas, Technologist Prior study comparison: February 19, 2017, bilateral digital mammo screening bilat, performed at [facility]. February 19, 2016, bilateral digital mammo screening bilat, performed at [facility]. February 13, 2015, bilateral digital mammo screening bilat, performed at [facility]. FINDINGS: There are scattered fibroglandular densities. There has been no change in the appearance of the mammogram from the prior studies. There is a mild amount of scattered fibroglandular density which is fairly symmetric. There is no interval development of dominant mass, architectural distortion, or clustered microcalcification suggestive of malignancy. 3-D tomosynthesis shows no additional findings. Assessment: BI-RADS/ACR category 1 mammogram. Negative Mammogram. Recommendation Routine screening mammogram of both breasts in 1 year (for women over age 40). This patient's Lifetime Breast Cancer RIsk is estimated at 3.2 %. This mammogram was interpreted with the aid of an FDA-approved computer-aided dectection system. Electronically Signed By: Antonio Stokes MD 06/12/18 7535
--- NOTE | 2018-06-15 15:43 | DEXA ---
AP SPINE L1 - L4 1.154 -0.3 1.4 LT FEMUR TOTAL 0.911 -0.8 0.8 LT NECK 0.769 -1.9 -0.1 RT FEMUR TOTAL 0.852 -1.2 0.4 RT NECK 0.791 -1.8 0.0 TOTAL BODY TOTAL OTHER COMMENTS: Normal bone densitometry of the spine. There is low bone density of the hips. FOLLOW-UP: Recommendation for the next bone density exam: 2 years. ROMERO
== END ==
LOC: M WHC 10:32
PROVIDERS: ATTEND Physician Assistant
DX: Z12.31 Encounter for screening mammogram for malignant neoplasm of breast (principal); Z13.820 Encounter for screening for osteoporosis

== ENCOUNTER 2018-07-30 12:03 | Inpatient (IN) | payer MEDICARE, MEDICAID ==
[~2018-07-30] VITALS: Ht 165.1 cm; Wt 111.1 kg
[~2018-07-30 12:03] MED LIST changes: -/ADVA50050 IN; -/ADVA50050 INH; -/ADVA50050 PO; -/DULO30CA OR; -/ESOM40CA OR; -/ESOM40CA PO; -/MOXI40TA PO; -/PANT40TA PO; -/RANI15TA PO; -/TIOT18INH INH; +ADVA1AER2 IN; +ADVA1AER2 INH; +ADVA1AER2 PO; +AVEL1TAB2 PO; +CYMB1CAP5 OR; -DULO20CA PO; -DULO30CA PO; +DULO30CA9 PO; +FLUT50SP12; +IBUP600T42 PO; -IBUP60TA PO; +NEXI1CAP3 OR; +NEXI1CAP3 PO; -POTA1TAB23; +POTA1TAB23 PO; +PROT1TAB2 PO; +RANI1TAB17 PO
[2018-07-30] MEDS ORDERED: dexameTHASONE 20 MG/5 ML VIAL (J1100) IV ONE (12:45)
[2018-07-30] MEDS ORDERED: NS 1,000 ML IV ONE (12:45)
[2018-07-30] MEDS ORDERED: ACETAMINOPHEN TAB 650MG DOSE (2X325MG) PO ONE (12:45)
[2018-07-30] MEDS ORDERED: LEVALBUTEROL 1.25 MG/0.5 ML CONCENTRATE NEB NEB PRN (12:45)
[2018-07-30 12:49] LABS: VENOUS BASE EXCESS 4.8 (-2.0-2.0); VENOUS HCO3 30.6 MEQ/L (23.0-27.0); VENOUS O2 SATURATION 56.1 % (60.0-80.0); VENOUS PARTIAL PRESSURE CO2 49.9 mmHg (38.0-50.0); VENOUS PARTIAL PRESSURE O2 29.1 mmHg (30.0-50.0); VENOUS PH 7.405 UNITS (7.330-7.430); VENOUS STANDARD HCO3 27.7 MEQ/L; VENOUS TOTAL CO2 32.1 MEQ/L (24.0-28.0)
[2018-07-30 12:59] LABS: BASO % 0.2 % (0.0-1.0); EOS # 0.1 10^3/uL (0.0-0.50); EOS % 0.6 % (0.0-3.0); HEMATOCRIT 38.3 % (36.0-47.0); HEMOGLOBIN 12.3 g/dl (12.0-15.5); LYMPH # 1.6 10^3/uL (1.5-4.5); LYMPH % 11.1 % (24.0-44.0); MEAN CORPUSCULAR HEMOGLOBIN 28.9 pg (27.0-33.0); MEAN CORPUSCULAR HGB CONC 32.1 g/dl (32.0-36.5); MEAN CORPUSCULAR VOLUME 89.9 fl (80.0-96.0); MONO % 7.4 % (0.0-5.0); NEUTROPHILS % 78.8 % (36.0-66.0); PLATELET COUNT, AUTOMATED 344 10^3/uL (150-450); RED BLOOD COUNT 4.26 10^6/uL (4.00-5.40)
[2018-07-30 13:07] LABS: INR 1.05; PROTHROMBIN TIME 13.8 SECONDS (12.1-14.4)
[2018-07-30 13:20] LABS: INFLUENZA A AMPLIFICATION NEGATIVE (NEGATIVE); INFLUENZA B AMPLIFICATION NEGATIVE (NEGATIVE)
[2018-07-30 13:30] LABS: ALT/SGPT 20 U/L (12-78); BILIRUBIN,DIRECT < 0.1 MG/DL (0.0-0.2); BILIRUBIN,TOTAL 0.2 MG/DL (0.2-1.0); BLOOD UREA NITROGEN 15 MG/DL (7-18); CALCIUM LEVEL 8.3 MG/DL (8.8-10.2); CARBON DIOXIDE LEVEL 32 MEQ/L (21-32); CHLORIDE LEVEL 91 MEQ/L (98-107); CPK CREATINE PHOSPHOKINASE 27 U/L (26-192); CREATININE FOR GFR 0.88 MG/DL (0.55-1.30); GLOMERULAR FILTRATION RATE > 60.0 (>39); GLUCOSE, FASTING 234 MG/DL (70-100); MB/CK RELATIVE INDEX 4.07 (< OR =4); NT-PRO BNP 1164 PG/ML (<125); SODIUM LEVEL 129 MEQ/L (136-145); THYROXINE (T4) 9.3 UG/DL (4.5-12.0); TOTAL PROTEIN 6.2 GM/DL (6.4-8.2); TROPONIN I < 0.02 NG/ML (< 0.10)
--- NOTE | 2018-07-30 13:48 | REP ---
PORTABLE CHEST X-RAY: Single view. HISTORY: Dyspnea and cough. COMPARISON CHEST X-RAY: May 15, 2018. FINDINGS: The patient is status post right thoracotomy and partial pneumonectomy with chronic postsurgical and rib changes. Heart is not enlarged. EKG electrodes and oxygen delivery tubing are seen. There are increased interstitial markings in the left base more prominent than on the prior study. Developing infiltrate versus interstitial fibrosis. Pulmonary vasculature is somewhat congested. Otherwise unchanged. IMPRESSION: Increased markings left base question interstitial infiltrate versus fibrosis. Post thoracotomy changes on the right. Electronically Signed by Haroldo Stokes MD 07/30/2018 02:25 P
[2018-07-30] MEDS ORDERED: PRED10TA2 PO (14:24)
[2018-07-30] MEDS ORDERED: FEXO180T58 PO (14:29)
[2018-07-30] MEDS ORDERED: FURO80TA2 PO (14:29)
[2018-07-30] MEDS ORDERED: VENL75TA2 PO (14:29)
[2018-07-30] MEDS ORDERED: AZITHROMYCIN INJ 500 MG, VIAL MATE ADAPTER 1 EACH in D5W 250 ML IV ONE (14:30)
[2018-07-30] MEDS ORDERED: cefTRIAXone SOD 1 GM in D5W MINI-BAG PLUS 50 ML IV ONE (14:30)
[2018-07-30] MEDS ORDERED: FLOM0.4C39 PO (14:34)
[2018-07-30] MEDS ORDERED: FISH7.5C PO (14:34)
[2018-07-30] MEDS ORDERED: LANTINJ4 SC (14:36)
[2018-07-30] MEDS ORDERED: DOCU100C16 PO (14:38)
[2018-07-30] MEDS ORDERED: LOSA25TA14 PO (14:39)
[2018-07-30] MEDS ORDERED: CALC1TAB26 PO (14:42)
[2018-07-30] MEDS ORDERED: TIZA-208 PO (14:42)
[2018-07-30] MEDS ORDERED: DONETAB5 PO (14:42)
[2018-07-30] MEDS ORDERED: MIRA3350 PO (14:43)
[2018-07-30] MEDS ORDERED: FERR325T3 PO (14:44)
[2018-07-30] MEDS ORDERED: DOCUSATE SODIUM 100 MG CAP PO PRN (14:45)
[2018-07-30] MEDS ORDERED: PERCOCET 5MG/325MG TAB PO PRN (14:45)
[2018-07-30] MEDS ORDERED: DONETAB6 PO (14:47)
[2018-07-30] MEDS ORDERED: DOXY100C PO (14:48)
[2018-07-30] MEDS ORDERED: ALBU83IN INH (14:49)
--- NOTE | 2018-07-30 15:08 | ECGEPIP ---
Stationary ECG Study [facility] - ED Test Date: 2018-07-30 Pat Name: PINEDA VALDERRAMA Department: Room: - Gender: F Wrapper Off: DAMIAN : 1945 Requested By: Liz Enciso Order Number: [id number] Reading MD: Thea Pradhan Measurements Intervals [place] Rate: 148 P: NE: 0 QRS: 66 QRSD: 83 T: 57 QT: 280 QTc: 440 Interpretive Statements ATRIAL FLUTTER/TACHYCARDIA WITH RAPID VENTRICULAR RESPONSE ABNORMAL RHYTHM ECG 10/26/17 SINUS RHYTHM Electronically Signed On 07-30-2018 15:08:20 EDT by Thea Pradhan
[2018-07-30] MEDS ORDERED: NS 1,000 ML IV SCH (15:13)
[2018-07-30] MEDS ORDERED: IPRATROPIUM 0.5MG/ALBUTEROL 2.5MG INH SOL UD 3ML (DUONEB)(J7620) NEB PRN (15:15)
--- NOTE | 2018-07-30 15:51 | HPE ---
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 Approximately 2 days ago she went to urgent care and was given prednisone taper and doxycycline, but it did not help, so she came to the emergency room (ER) for evaluation. In the ER she was not hypoxic. She was placed on 4 liters nasal cannula, but she was saturating 100%. She was given 125 of Solu-Medrol and DuoNeb. She does feel better at this time. Chest x-ray did reveal a left lower lobe consolidation, and patient was given intravenous (IV) Rocephin and Zithromax. She will be admitted for further management. PAST MEDICAL HISTORY: 1. Hypertension. 2. Chronic kidney disease (CKD) III. 3. History of chronic systolic heart failure, EF of 35%. 4. Hyperlipidemia. 5. Oxygen-dependent COPD, requiring 2 liters nasal cannula. 6. DARSHAN, on CPAP. 7. Hypotension. 8. Gout. 9. Depression. 10. Chronic active tobacco use. 11. Diabetes. 12. Alzheimer's disease. DRUG ALLERGIES: PENICILLIN. FAMILY HISTORY: Noncontributory. SOCIAL HISTORY: Patient still smokes approximately a pack a day and has been smoking for many years. Denies alcohol or illicit drugs. HOME MEDICATIONS: - albuterol as needed - allopurinol 100 mg orally daily - aspirin 81 mg orally daily - atorvastatin 40 mg orally at bedtime - calcium with vitamin D 600/800 one tablet orally daily - cholecalciferol 400 units orally daily - dicyclomine 200 mg orally three times a day - Colace 100 mg orally twice daily - donepezil 10 mg orally daily - doxycycline 100 mg orally twice daily - duloxetine 30 mg orally daily - ferrous sulfate 325 mg orally daily - fexofenadine 180 mg orally daily - Lasix 80 mg orally daily - gabapentin 300 mg orally four times a day - Lantus 44 units subcutaneous at bedtime - Lantus 60 mg subcutaneous in morning - Insulin Lispro sliding scale - Synthroid 50 mcg orally daily - losartan 25 mg regular diet - magnesium oxide 800 mg orally three times a day - metolazone 2.5 mg orally by mouth weekly - multivitamin one tablet orally twice daily - omeprazole 40 mg orally daily - oxycodone/APAP 5/325 one tablet orally three times a day as needed - MiraLax as needed - potassium chloride 10 mEq orally three times a day - prednisone 10 mg orally daily - ranitidine 150 mg orally daily - Advair one puff inhaled twice daily - tamsulosin 0.4 mg orally at bedtime - tiotropium one capsule inhaled daily - tizanidine 4 mg orally at bedtime - trazodone 150 mg orally at bedtime - venlafaxine 150 mg orally twice daily REVIEW OF SYSTEMS: Negative for [id number] systems except what is mentioned in the history of present illness (HPI). VITAL SIGNS: Blood pressure 100/70, heart rate 146, regular, respiratory rate 20, temperature 99.3, oxygen saturation is 98% on 4 liters nasal cannula. HEAD: Atraumatic, normocephalic. NECK: Supple. No jugular venous distention (JVD). LUNGS: Late expiratory wheezes. S1, S2 audible. No murmurs appreciated. ABDOMEN: Soft. Positive bowel sounds. No pedal edema. SKIN: Intact. NEUROLOGIC: Patient awake, alert, oriented times three. LABORATORY DATA: Sodium 129, potassium 4.0, chloride 91, CO2 of 32, anion gap 6, BUN 15, creatinine 0.8, glucose 234, lactic acid 1.8. Troponin is less than 0.02. TSH is 1.86. WBC 14, hemoglobin 12.3, hematocrit 38.3, platelets 344,000. VBG: A pH of 7.405 and pCO2 is 49.9. Influenza A and B are negative. IMPRESSION: 1. Chronic obstructive pulmonary disease (COPD) exacerbation. 2. Community-acquired pneumonia. PLAN: Patient will be admitted to the medical/surgical floor. Will continue all her preadmission medications. We are going to hold the doxycycline and prednisone and instead give her IV Rocephin and Zithromax as well as IV Solu-Medrol. Will give her DuoNeb every 4 as needed, and if she can provide us with sputum, will get a sputum culture as well. Will continue following her care on the medical/surgical floor.
[2018-07-30 16:45] VITALS: BP 136/79
[2018-07-30] MEDS: MAGNESIUM OXIDE 400 MG TAB (MAG-OX) PO SCH ×2 (17:04→21:20)
[2018-07-30] MEDS: GABAPENTIN 300 MG CAP PO SCH ×2 (17:04→21:21)
[2018-07-30] MEDS: OMEGA-3 1000MG CAPSULE PO SCH ×2 (17:04→21:21)
[2018-07-30] MEDS: POTASSIUM CHLORIDE 10 MEQ SR TABLET PO SCH ×2 (17:05→21:21)
[2018-07-30] MEDS: DULoxetine 30 MG CAP (CYMBALTA) PO SCH (17:06)
[2018-07-30] MEDS ORDERED: DEXTROSE 50% 50 ML SYRINGE IV PRN (20:15)
[2018-07-30] MEDS ORDERED: GLUCOSE 4 GM CHEW TABLET PO PRN (20:15)
[2018-07-30] MEDS ORDERED: GLUCAGON FOR INJ 1 MG VIAL (J1610) SC PRN (20:15)
[2018-07-30] MEDS: methylPREDNISolone INJ 40 MG/1 ML VIAL (J2920) IV SCH (21:19)
[2018-07-30] MEDS: HumaLOG INSULIN (NovoLOG) PER UNIT SC SCH (21:19)
[2018-07-30] MEDS: OCUVITE 1 TAB PO SCH (21:20)
[2018-07-30] MEDS: traZODone 50 MG TAB PO SCH (21:20)
[2018-07-30] MEDS: LEVEMIR (INSULIN DETEMIR) 1 UNITS/0.01ML SC SCH (21:20)
[2018-07-30] MEDS: tiZANidine 4 MG TAB PO SCH (21:20)
[2018-07-30] MEDS: TAMSULOSIN 0.4 MG CAP PO SCH (21:21)
[2018-07-30] MEDS: ALLOPURINOL 100 MG TAB PO SCH (21:21)
[2018-07-30] MEDS: ATORVASTATIN 20 MG TAB PO SCH (21:23)
[2018-07-30] MEDS: VENLAFAXINE 37.5 MG TAB PO SCH (21:50)
[2018-07-30 22:00] VITALS: BP 135/73
[2018-07-31] MEDS: LEVOTHYROXINE 50MCG TABLET (0.05MG) PO SCH (05:57)
[2018-07-31] MEDS: methylPREDNISolone INJ 40 MG/1 ML VIAL (J2920) IV SCH ×3 (05:57→20:47)
[2018-07-31 06:00] VITALS: BP 133/74
[2018-07-31 06:17] LABS: BASO % 0.2 % (0.0-1.0); EOS % 0.1 % (0.0-3.0); HEMATOCRIT 35.5 % (36.0-47.0); HEMOGLOBIN 11.4 g/dl (12.0-15.5); LYMPH # 0.7 10^3/uL (1.5-4.5); LYMPH % 5.2 % (24.0-44.0); MEAN CORPUSCULAR HEMOGLOBIN 29.3 pg (27.0-33.0); MEAN CORPUSCULAR HGB CONC 32.1 g/dl (32.0-36.5); MEAN CORPUSCULAR VOLUME 91.3 fl (80.0-96.0); MONO # 0.6 10^3/uL (0.0-0.8); MONO % 4.3 % (0.0-5.0); NEUTROPHILS # 11.6 10^3/uL (1.8-7.7); PLATELET COUNT, AUTOMATED 302 10^3/uL (150-450); RED BLOOD COUNT 3.89 10^6/uL (4.00-5.40)
[2018-07-31 06:54] LABS: BLOOD UREA NITROGEN 12 MG/DL (7-18); CALCIUM LEVEL 8.5 MG/DL (8.8-10.2); CARBON DIOXIDE LEVEL 33 MEQ/L (21-32); CHLORIDE LEVEL 97 MEQ/L (98-107); CREATININE FOR GFR 0.81 MG/DL (0.55-1.30); GLOMERULAR FILTRATION RATE > 60.0 (>39); GLUCOSE, FASTING 230 MG/DL (70-100); SODIUM LEVEL 135 MEQ/L (136-145)
[2018-07-31] MEDS: FEXOFENADINE 60 MG TAB PO SCH (09:14)
[2018-07-31] MEDS: VENLAFAXINE 37.5 MG TAB PO SCH ×2 (09:15→20:46)
[2018-07-31] MEDS: OMEGA-3 1000MG CAPSULE PO SCH (09:15)
[2018-07-31] MEDS: OMEPRAZOLE 20 MG CAP PO SCH (09:15)
[2018-07-31] MEDS: DULoxetine 30 MG CAP (CYMBALTA) PO SCH (09:15)
[2018-07-31] MEDS: GABAPENTIN 300 MG CAP PO SCH ×5 (09:15→20:46)
[2018-07-31] MEDS: OCUVITE 1 TAB PO SCH ×2 (09:15→23:15)
[2018-07-31] MEDS: MAGNESIUM OXIDE 400 MG TAB (MAG-OX) PO SCH ×3 (09:15→20:49)
[2018-07-31] MEDS: DONEPEZIL 5 MG TAB PO SCH (09:15)
[2018-07-31] MEDS: FAMOTIDINE 20 MG TAB PO SCH (09:15)
[2018-07-31] MEDS: LOSARTAN 25 MG TAB PO SCH (09:16)
[2018-07-31] MEDS: FUROSEMIDE 80 MG TAB PO SCH (09:16)
[2018-07-31] MEDS: POTASSIUM CHLORIDE 10 MEQ SR TABLET PO SCH (09:16)
[2018-07-31] MEDS: ASPIRIN 81 MG ENTERIC TAB PO SCH (09:16)
[2018-07-31] MEDS: HumaLOG INSULIN (NovoLOG) PER UNIT SC SCH ×4 (09:17→20:47)
[2018-07-31] MEDS: LEVEMIR (INSULIN DETEMIR) 1 UNITS/0.01ML SC SCH ×2 (09:17→20:47)
[2018-07-31] MEDS: cefTRIAXone SOD 1 GM in D5W MINI-BAG PLUS 50 ML IV SCH (09:17)
--- NOTE | 2018-07-31 10:01 | IPNPDOC ---
Subjective Date Seen The patient was seen on 07/31/18. Subjective Chief Complaint/HPI Breathing better tosay. Still with cough, but improved. Tachycardia, but denies CP. Constitutional: Denies: Chills, Fever Pulmonary: Reports: Cough; Denies: Dyspnea Cardiovascular: Denies: Chest Pain, Palpitations, Orthopnea, Edema, Lt Headedness Gastrointestinal: Reports: Diarrhea (1 slightly loose BM); Denies: Nausea, Vomiting, Abdominal Pain, Constipation, Melena, Hematochezia Objective Physical Examination General Exam: Positive: Alert (bright, alert sitting up in chair comfortable, speaking full sentences without dyspnea), No Acute Distress Chest Exam: Positive: Wheezing; Negative: Normal air movement, Rales, Rhonchi Heart Exam: Positive: Tachycardic; Negative: Murmurs Abdomen Exam: Positive: Normal bowel sounds, Soft; Negative: Tenderness Extremity Exam: Negative: Edema Assessment /Plan Problems (1) Tachycardia Status: Acute Problem Text: EKG looks like probable Atrial Flutter - HR remains in the 140s despite IV Bolus yesterday. BP normalized. Does not appear clinically dehydrated, byut will hold pm dose of Lasix. Not getting Bronchodilators. Currently without dyspnea or CP. Check f/u Cardiac Enzymes & mag level Move to PCU - Dr. Muñoz consulted (followed by Dr. Esposito in past for HTN) (2) Pneumonia Status: Acute Problem Text: Currently getting IV Rocephin and Zithromax B/C pending (3) COPD exacerbation Status: Acute Response to Treatment: Improving Problem Text: Cont IV Solumedrol - Has prn nebs ordered, but has only been gi manda this once in ER Normally on Advair and Spiriva Restart Spiriva Chronic COPD on 2L NC at baseline - follows with Dr. Daely in Office - frequent exacerbations requiring steroids and abx over last few months (4) Nicotine dependence Status: Chronic Problem Text: Continues to smoke (5) CKD stage 3 due to type 2 diabetes mellitus Status: Chronic Response to Treatment: Stable (6) IDDM (insulin dependent diabetes mellitus) Status: Chronic Response to Treatment: Stable Problem Text: Getting half dose of her usual Lantus (pm dose on hold) cont SSI - adjust long acting insulin as needed (7) HTN (hypertension) Status: Chronic Response to Treatment: Stable (8) Systolic CHF, chronic Permanent Comment: EF 35% per Echo 2017 Last Edited By: PRESLEY Mendez on Jul 31, 2018 10:48 Status: Chronic Response to Treatment: Stable (9) DARSHAN on CPAP Status: Chronic Problem Text: non-compliant with CPAP (10) Dementia Status: Chronic Response to Treatment: Stable Problem Text: mild - on Aricept - at Baseline today Plan/VTE VTE Prophylaxis Ordered?: Yes (Start Lovenox today) Plan Therapy: PT Advance Directives: DNR (Patietn completed MOLST 07/31/18 DNR/DNI) VS, I&O, 24H, Fishbone Vital Signs/I&O Vital Signs Date Time Temp Pulse Resp B/P (MAP) Pulse Ox O2 Delivery O2 Flow Rate FiO2 07/31/18 09:16 137/72 07/31/18 06:00 97.1 138 18 98 07/30/18 21:00 2.0 07/30/18 16:41 Nasal Cannula I&O- Last 24 Hours up to 6 AM 07/31/18 06:00 Intake Total 1650 ml Output Total 400 ml Balance 1250 ml Laboratory Data 24H LABS Laboratory Tests 2 07/30/18 12:32: Lactic Acid Level 1.8 07/30/18 12:35: Immature Granulocyte % (Auto) 1.9, White Blood Count 14.0H, Red Blood Count 4.26, Hemoglobin 12.3, Hematocrit 38.3, Mean Corpuscular Volume 89.9, Mean Corpuscular Hemoglobin 28.9, Mean Corpuscular Hemoglobin Concent 32.1, Red Cell Distribution Width 15.0H, Platelet Count 344, Neutrophils (%) (Auto) 78.8H, Lymphocytes (%) (Auto) 11.1L, Monocytes (%) (Auto) 7.4H, Eosinophils (%) (Auto) 0.6, Basophils (%) (Auto) 0.2, Neutrophils # (Auto) 11.0H, Lymphocytes # (Auto) 1.6, Monocytes # (Auto) 1.0H, Eosinophils # (Auto) 0.1, Basophils # (Auto) 0.0, Nucleated Red Blood Cells % (auto) 0.0, Prothrombin Time 13.8, Prothromb Time International Ratio 1.05, Blood Gas Bicarbonate Standard 27.7, Venous Blood pH 7.405, Venous Blood Partial Pressure CO2 49.9, Venous Blood Partial Pressure O2 29.1L, Venous Blood Total Carbon Dioxide 32.1H, Venous Blood HCO3 30.6H, Venous Blood Oxygen Saturation 56.1L, Venous Blood Base Excess 4.8H, Anion Gap 6L, Glomerular Filtration Rate > 60.0, Calcium Level 8.3L, Aspartate Amino Transf (AST/SGOT) 5L, Alanine Aminotransferase (ALT/SGPT) 20, Alkaline Phosphatase 125H, Total Bilirubin 0.2, Direct Bilirubin < 0.1, Total Creatine Kinase 27, Creatine Kinase MB 1.0, Creatine Kinase MB Relative Index 4.07H, Troponin I < 0.02, RD-Ukv-M-Type Natriuretic Peptide 1164H, Total Protein 6.2L, Albumin 3.0L, Albumin/Globulin Ratio 0.94L, Thyroid Stimulating Hormone (TSH) 1.860, Thyroxine (T4) 9.3, Influenza Type A (RT-PCR) NEGATIVE, Influenza Type B (RT-PCR) NEGATIVE 07/30/18 20:04: Bedside Glucose (Misc Panel) 353H 07/31/18 05:56: Immature Granulocyte % (Auto) 1.2, White Blood Count 13.0H, Red Blood Count 3.89L, Hemoglobin 11.4L, Hematocrit 35.5L, Mean Corpuscular Volume 91.3, Mean Corpuscular Hemoglobin 29.3, Mean Corpuscular Hemoglobin Concent 32.1, Red Cell Distribution Width 14.6H, Platelet Count 302, Neutrophils (%) (Auto) 89.0H, Lymphocytes (%) (Auto) 5.2L, Monocytes (%) (Auto) 4.3, Eosinophils (%) (Auto) 0.1, Basophils (%) (Auto) 0.2, Neutrophils # (Auto) 11.6H, Lymphocytes # (Auto) 0.7L, Monocytes # (Auto) 0.6, Eosinophils # (Auto) 0.0, Basophils # (Auto) 0.0, Nucleated Red Blood Cells % (auto) 0.0, Anion Gap 5L, Glomerular Filtration Rate > 60.0, Calcium Level 8.5L, Blood Urea Nitrogen 12, Creatinine 0.81, Sodium Level 135L, Potassium Level 5.0#, Chloride Level 97L, Carbon Dioxide Level 33H CBC/BMP Laboratory Tests 07/30/18 12:35 Red Blood Count 4.26, Mean Corpuscular Volume 89.9, Mean Corpuscular Hemoglobin 28.9, Mean Corpuscular Hemoglobin Concent 32.1, Red Cell Distribution Width 15.0 H, Neutrophils (%) (Auto) 78.8 H, Lymphocytes (%) (Auto) 11.1 L, Monocytes (%) (Auto) 7.4 H, Eosinophils (%) (Auto) 0.6, Basophils (%) (Auto) 0.2, Neutrophils # (Auto) 11.0 H, Lymphocytes # (Auto) 1.6, Monocytes # (Auto) 1.0 H, Eosinophils # (Auto) 0.1, Basophils # (Auto) 0.0 07/31/18 05:56 Red Blood Count 3.89 L, Mean Corpuscular Volume 91.3, Mean Corpuscular Hemoglobin 29.3, Mean Corpuscular Hemoglobin Concent 32.1, Red Cell Distribution Width 14.6 H, Neutrophils (%) (Auto) 89.0 H, Lymphocytes (%) (Auto) 5.2 L, Monocytes (%) (Auto) 4.3, Eosinophils (%) (Auto) 0.1, Basophils (%) (Auto) 0.2, Neutrophils # (Auto) 11.6 H, Lymphocytes # (Auto) 0.7 L, Monocytes # (Auto) 0.6, Eosinophils # (Auto) 0.0, Basophils # (Auto) 0.0, Calcium Level 8.5 L Microbiology Microbiology 07/30/18 Blood Culture, Received Pending 07/30/18 Blood Culture, Received Pending DANA LANZA PA-C Jul 31, 2018 10:01
[2018-07-31] MEDS ORDERED: DIGOXIN 0.25 MG TAB PO ONE ×3 (11:00→21:00)
[2018-07-31] MEDS: APIXABAN 5 MG TAB (ELIQUIS) PO SCH ×2 (11:57→20:46)
[2018-07-31] MEDS ORDERED: FUROSEMIDE 40 MG TAB PO SCH (12:00)
[2018-07-31] MEDS: TIOTROPIUM INHALER/CAPSULE (SPIRIVA) INH SCH (12:09)
[2018-07-31 12:13] LABS: CPK CREATINE PHOSPHOKINASE 22 U/L (26-192); MAGNESIUM LEVEL 2.8 MG/DL (1.8-2.4); TROPONIN I < 0.02 NG/ML (< 0.10)
[2018-07-31 13:09] VITALS: BP 114/68
[2018-07-31] MEDS ORDERED: DIGOXIN INJ 0.5 MG/2 ML AMP (J1160) IV ONE (14:00)
[2018-07-31 16:00] VITALS: BP 120/80
[2018-07-31] MEDS: FENOFIBRATE 145 MG TAB (TRICOR) PO SCH (16:07)
[2018-07-31] MEDS: AZITHROMYCIN INJ 500 MG, VIAL MATE ADAPTER 1 EACH in D5W 250 ML IV SCH (16:07)
--- NOTE | 2018-07-31 16:30 | CR ---
DATE OF CONSULTATION: 07/31/2018 HISTORY OF PRESENT ILLNESS: Dacia Caal is a 72-year-old female who presented to the emergency room on 07/30/2018, with a chief complaint of shortness of breath and cough. 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 She states that she has been experiencing shortness of breath for approximately 5 days. She went to the urgent care and was given a prednisone and doxycycline taper, however her symptoms did not improve and she went to the emergency room (ER). In the ER, she was given 125 mg of Solu-Medrol and has been on continuous DuoNeb treatments. Today, she reports her breathing has improved, she is back down to her two liters of oxygen. CARDIAC HISTORY: She is not complaining of any chest pain or palpitations, however she does report chest discomfort in the midsternum that she rates as 7/10 in severity but she attributes to her difficulty breathing related to her suspected COPD exacerbation. The discomfort in her chest does not change with position, it does not change with deep breaths, and it is constant. She is a patient of Dr. Amado Esposito. REVIEW OF SYSTEMS: Ten-point review of systems was negative other than what was stated in the history of present illness (HPI). PAST MEDICAL HISTORY: The patient has a past medical history of lung cancer, COPD, gastroesophageal reflux disease (GERD), obesity, chronic low back pain, depression, hypothyroidism, hypertension, chronic kidney disease stage III, chronic systolic heart failure (ejection fraction of 35%), hyperlipidemia, gout, and Alzheimer's disease. ALLERGIES: She is allergic to PENICILLIN. FAMILY HISTORY: Noncontributory. SOCIAL HISTORY: The patient is a current smoker and smokes approximately a pack a day with greater than 40 pack-year history. SURGICAL HISTORY: She had a cholecystectomy, a hysterectomy. FAMILY HISTORY: Her father had bone cancer and is . Her mother had colon cancer with metastasis to the brain and is . She has three children who are healthy. PHYSICAL EXAMINATION: VITAL SIGNS: Her weight is 105.3 kg, her body mass index (BMI) is 38.6, her temperature is 97.1, pulse is 138, respiratory rate is 18, blood pressure is 137/72, pulse oximetry is 98% on two liters nasal cannula. GENERALLY: She is an obese, pleasant female, standing in the room, appearing in no acute distress. EYES: Her conjunctiva are normal, she has no icterus. No xanthelasmas of the upper or lower lids. Extraocular movements are intact. HEENT: Her oral mucosa is moist without any cyanosis or pallor. She has full upper and lower dentures. Her thyroid is of normal size with no nodules. NECK: Her trachea is midline. Her jugular venous pulsations are visible 3 cm above the sternal border. RESPIRATORY: She has rhonchi bilaterally in the bases tracking all the way up to the middle lobes. Some wheezing was auscultated as well. CARDIOVASCULAR: She has a very distant S1 and S2 and a very rapid rate at 142 on exam. She has no respiratory splitting and she does have an S4 gallop. Carotids are without bruits bilaterally. Abdominal aorta was unable to be palpated due to her size. Femoral arteries were not palpated due to her size. She has symmetrical pedal pulses that are reduced. EXTREMITIES: She has 1+ pitting edema bilaterally. Nails: She has no clubbing, cyanosis, splinter hemorrhages on her fingernails. ABDOMEN: Her bowel sounds are normoactive. She is soft, nontender. No masses or organomegaly. MUSCULOSKELETAL: She moves all of her extremities well. Strength 4/5 in upper and lower extremities. NEUROLOGIC: Cranial nerves II-XII are intact. PSYCHIATRIC: She has normal mood, normal affect, and she is awake, alert, and oriented times three. LABORATORY DATA: Today her white blood cell count is 13 from 14 yesterday, her hemoglobin is 11.4, her hematocrit is 35.5, and her platelet count is 302. Her sodium is 135, her potassium is 5, her chloride is 97, her carbon dioxide is 33, her BUN is 12, and her creatinine is 0.81, her calcium is 8.5. Her TSH was 1.86 and her T4 was 9.3. Her troponin was less than 0.02. Her CK-MB was 4.07 and her BNP was 1164. EKG interpretation from 07/31/2018 at 9:36 a.m.: She has a ventricular rate of 142. EKG demonstrates atrial flutter/tachycardia with a rapid ventricular response. She has low QRS voltage in the precordial leads and moderate ST depression. OTHER INVESTIGATIONS: She has dobutamine/atropine stress SPECT myocardial perfusion imaging study performed on 04/17/2016 and 04/18/2016. Conclusions were no supine dobutamine/atropine inducible chest discomfort. Negative EKG for myocardial ischemia response. Normal left ventricular wall motion. Mild fixed seeming anterior abnormalities shown to be due to breast tissue attenuation artifact using prone imaging. Importantly, there was no reversible myocardial perfusion abnormality to suggest stress inducible myocardial ischemia. Although some degree of angiographically proven coronary obstruction could not be ruled out based on the above test findings, we would anticipate the risk of a significant ischemic cardiac event in the near future to be low. Continued coronary artery disease risk factor modification would be advised. Echocardiogram from 06/26/2016 conclusions: 1. Hyperdynamic left ventricular systolic function. Normal left ventricular internal dimensions and wall thickness. No regional wall motion abnormalities. Normal left ventricular diastolic function for age. 2. Suggestive of moderate elevation of pulmonary artery systolic pressure. Normal right ventricular size and hyperdynamic right ventricular systolic function. 3. Tiny pericardial effusion. No diastolic chamber collapse. No significant variation of respiratory into cardiac velocities. 4. Moderately technically difficult echocardiogram. A Holter monitor was performed on 08/12/2017, with the following results: Normal sinus rhythm was noted with a maximum heart rate of 113 beats per minute (BPM) noted at 7:06 p.m. and a minimum rate of 58 BPM. No activity reported with a maximum heart rate. No pause. Moderate isolated premature atrial contractions (PACs). There was one supraventricular run made of 5 beats and going at about 100 beats per minute. Moderate isolated premature ventricular contractions (PVCs) including couplets bigeminy. No ventricular run. Her symptoms at that time were shortness of breath, chest pain with no significant associated arrhythmias. IMAGING: Chest x-ray was performed on 07/30/2018 and demonstrated increased markings in the left base, questionable interstitial infiltrate versus fibrosis. Postthoracotomy changes on the right. ASSESSMENT AND PLAN: This is a 72-year-old female with a past medical history of hypertension, obstructive sleep apnea (DARSHAN), chronic obstructive pulmonary disease (COPD), and hyperlipidemia who presented with shortness of breath times 5 days, found to have a suspected COPD exacerbation. The patient has been put on IV steroids and IV antibiotics with improvement of her symptoms at this time. The Cardiology service was called for consultation as she was found to have atrial flutter and tachycardia with a rapid ventricular response at a rate of about 142 beats per minute that was asymptomatic. 1. New onset atrial flutter/tachycardia: The patient has been started on one dose of digoxin 0.25 mg at this time to control her rate. She has also been started on Verapamil. The patient does report having some chest discomfort as pressure in her anterior sternum, however this may be contributed to her current pneumonia. Thyroid studies have been checked and thyroid stimulating hormone (TSH) and T4 are within normal limits. We will also start the patient on Eliquis 5 mg twice a day for preventative management of potential emboli. Her CHADSVaSC score is 4. 2. Essential hypertension: The patient's blood pressures have been ranging in the 120s to 130s systolically over 50s to 70s diastolically. At this time she is stable. 3. Systolic heart failure: The patient was found to have a brain natriuretic peptide (BNP) of 1164 on admission. There may be some component of heart failure exacerbation at this time as the patient does display some peripheral edema. Please be cautious with fluids at this time and restrict all fluids by mouth. Continue the patient's 80 mg of Lasix daily. The patient's kidney function is suitable at this time, continue with current management. Another echocardiogram has been ordered. 4. Obstructive sleep apnea: Noncompliant with continuous positive airway pressure (CPAP) at home. The patient should be encouraged to continue using her CPAP at home. 5. Hyperlipidemia: Continue current dose of atorvastatin. Her Fish Oil supplement has been stopped and switched to Fenofibrate. My faculty preceptor for this patient encounter was physically present during the encounter and was fully available. All aspects of the patient interview, examination, medical decision making process, and medical care plan development were reviewed and approved by the faculty preceptor. The faculty preceptor is aware and concurs with the plan as stated in the body of this note and will attest to such by his/her cosignature. ROMERO
--- NOTE | 2018-07-31 17:04 | ECHO ---
DATE OF PROCEDURE: 07/31/2018 REFERRING PHYSICIAN: Fabiano Muñoz MD INDICATION: Typical atrial flutter. HEIGHT: 165 cm WEIGHT: 105 kg 2D MEASUREMENTS: Left atrium: 4.1 cm Aortic root: 2.7 cm Ventricular septum: 1.20 cm Posterior wall: 1.02 cm Left ventricle diastole: 4.2 cm Aortic annulus: 2.0 cm Inferior vena cava: 2.5 cm with reduced respiratory variation. DOPPLER MEASUREMENTS: Aortic valve velocity: 119 cm/s LVOT velocity: 98.8 cm/s Very mild tricuspid regurgitation. Pulmonary artery systolic pressure: 51 mmHg by pulmonary acceleration time method. MITRAL ANNULAR TISSUE DOPPLER: E prime septal: 11.8 cm/s E prime lateral: 10.3 cm/s DESCRIPTION: Rhythm was typical atrial flutter with rapid ventricular response. This was a moderately technically difficult echocardiogram. No pericardial effusion. This is a 2D, M-mode, color flow Doppler and pulse wave Doppler examination that included mitral annular tissue Doppler. CONCLUSIONS: 1. Normal left ventricle internal dimensions and wall thickness. Hyperdynamic left ventricle (LV) systolic function. Left ventricular ejection fraction (LVEF) 75-80%. No regional wall motion abnormalities of the left ventricle. 2. Hyperdynamic right ventricle systolic function. Normal right ventricle size by visual assessment. 3. Mild left atrial dilatation. Visual appearance of probably normal right atrial size. 4. Suggestive of moderate elevation of pulmonary artery systolic pressure (51 mmHg). 5. 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 Suggestive of elevated central venous pressure of at least 20 mmHg. 6. No pericardial effusion. 7. Mild aortic valve sclerosis of a three-cuspid aortic valve. 8. Mild mitral annular calcification. No mitral regurgitation.
[2018-07-31] MEDS: BISOPROLOL FUMARATE 5 MG TAB PO SCH (17:08)
[2018-07-31] MEDS: VERAPAMIL 40 MG TAB PO SCH ×2 (17:08→23:15)
[2018-07-31] MEDS: TAMSULOSIN 0.4 MG CAP PO SCH (20:46)
[2018-07-31] MEDS: tiZANidine 4 MG TAB PO SCH (20:46)
[2018-07-31] MEDS: ALLOPURINOL 100 MG TAB PO SCH (20:47)
[2018-07-31] MEDS: traZODone 50 MG TAB PO SCH (20:47)
[2018-07-31] MEDS: ATORVASTATIN 20 MG TAB PO SCH (20:50)
[2018-07-31 21:00] VITALS: BP 115/71
[2018-08-01] VITALS (8 sets, daily range): BP systolic 94–138; BP diastolic 52–96
[2018-08-01 04:58] LABS: HEMATOCRIT 34.4 % (36.0-47.0); HEMOGLOBIN 10.9 g/dl (12.0-15.5); MEAN CORPUSCULAR HEMOGLOBIN 28.2 pg (27.0-33.0); MEAN CORPUSCULAR HGB CONC 31.7 g/dl (32.0-36.5); MEAN CORPUSCULAR VOLUME 89.1 fl (80.0-96.0); PLATELET COUNT, AUTOMATED 287 10^3/uL (150-450); RED BLOOD COUNT 3.86 10^6/uL (4.00-5.40); WHITE BLOOD COUNT 15.8 10^3/uL (4.0-10.0)
[2018-08-01 05:22] LABS: ALBUMIN 2.6 GM/DL (3.2-5.2); ALT/SGPT 14 U/L (12-78); BILIRUBIN,TOTAL 0.3 MG/DL (0.2-1.0); BLOOD UREA NITROGEN 15 MG/DL (7-18); CALCIUM LEVEL 8.4 MG/DL (8.8-10.2); CARBON DIOXIDE LEVEL 36 MEQ/L (21-32); CHLORIDE LEVEL 94 MEQ/L (98-107); CREATININE FOR GFR 0.78 MG/DL (0.55-1.30); GLOMERULAR FILTRATION RATE > 60.0 (>39); GLUCOSE, FASTING 121 MG/DL (70-100); POTASSIUM SERUM 4.6 MEQ/L (3.5-5.1); SODIUM LEVEL 131 MEQ/L (136-145); TOTAL PROTEIN 5.6 GM/DL (6.4-8.2)
[2018-08-01] MEDS: methylPREDNISolone INJ 40 MG/1 ML VIAL (J2920) IV SCH ×2 (06:09→20:29)
[2018-08-01] MEDS: LEVOTHYROXINE 50MCG TABLET (0.05MG) PO SCH (06:09)
[2018-08-01] MEDS: VERAPAMIL 40 MG TAB PO SCH ×4 (06:10→23:43)
[2018-08-01] MEDS: HumaLOG INSULIN (NovoLOG) PER UNIT SC SCH ×4 (08:10→20:56)
[2018-08-01] MEDS: cefTRIAXone SOD 1 GM in D5W MINI-BAG PLUS 50 ML IV SCH (08:10)
[2018-08-01] MEDS: LEVEMIR (INSULIN DETEMIR) 1 UNITS/0.01ML SC SCH ×2 (08:10→20:29)
[2018-08-01] MEDS: BISOPROLOL FUMARATE 5 MG TAB PO SCH (08:11)
[2018-08-01] MEDS: DONEPEZIL 5 MG TAB PO SCH (08:11)
[2018-08-01] MEDS: FEXOFENADINE 60 MG TAB PO SCH (08:12)
[2018-08-01] MEDS: FAMOTIDINE 20 MG TAB PO SCH (08:12)
[2018-08-01] MEDS: ASPIRIN 81 MG ENTERIC TAB PO SCH (08:12)
[2018-08-01] MEDS: DULoxetine 30 MG CAP (CYMBALTA) PO SCH (08:12)
[2018-08-01] MEDS: FENOFIBRATE 145 MG TAB (TRICOR) PO SCH (08:12)
[2018-08-01] MEDS: FUROSEMIDE 80 MG TAB PO SCH ×2 (08:12→08:27)
[2018-08-01] MEDS: APIXABAN 5 MG TAB (ELIQUIS) PO SCH ×2 (08:13→20:29)
[2018-08-01] MEDS: LOSARTAN 25 MG TAB PO SCH (08:19)
[2018-08-01] MEDS: OCUVITE 1 TAB PO SCH ×2 (08:19→20:56)
[2018-08-01] MEDS: GABAPENTIN 300 MG CAP PO SCH ×4 (08:19→20:29)
[2018-08-01] MEDS: OMEPRAZOLE 20 MG CAP PO SCH (08:20)
[2018-08-01] MEDS: VENLAFAXINE 37.5 MG TAB PO SCH ×2 (08:21→20:55)
[2018-08-01] MEDS: MAGNESIUM OXIDE 400 MG TAB (MAG-OX) PO SCH ×4 (08:28→21:00)
[2018-08-01] MEDS ORDERED: DIGOXIN 0.25 MG TAB PO SCH (09:00)
[2018-08-01] MEDS ORDERED: ENOXAPARIN 40 MG/0.4 ML SYRINGE (J1650) SC SCH (09:00)
--- NOTE | 2018-08-01 10:08 | ECGEPIP ---
Stationary ECG Study [facility] Test Date: 2018-07-31 Pat Name: PINEDA VALDERRAMA Department: Room: [place] [address] Gender: F House Builder: LAYA : 1945 Requested By: DANA Cleveland PA-C Order Number: [id number] Reading MD: Jojo Baptiste Measurements Intervals [place] Rate: 142 P: IN: 0 QRS: 80 QRSD: 90 T: 52 QT: 259 QTc: 398 Interpretive Statements ATRIAL FLUTTER/TACHYCARDIA WITH 2:1 CONDUCTION AND RAPID VENTRICULAR RESPONSE LOW QRS VOLTAGE IN PRECORDIAL LEADS NO CHANGE SINCE 07/30/18 Electronically Signed On 08-01-2018 10:08:28 EDT by Jojo Baptiste
--- NOTE | 2018-08-01 10:18 | ECGEPIP ---
Stationary ECG Study 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
--- NOTE | 2018-08-01 14:36 | IPNPDOC ---
Subjective Date Seen The patient was seen on 08/01/18. Subjective Chief Complaint/HPI No acute events overnight. Patient denies any fevers, chills, cough, chest pain, dyspnea, palpitations. Objective Physical Examination General Exam: Positive: Alert (bright, alert sitting up in chair comfortable, speaking full sentences without dyspnea), No Acute Distress Chest Exam: Positive: Wheezing; Negative: Normal air movement, Rales, Rhonchi Heart Exam: Positive: Tachycardic; Negative: Murmurs Abdomen Exam: Positive: Normal bowel sounds, Soft; Negative: Tenderness Extremity Exam: Negative: Edema Assessment /Plan Problems (1) Tachycardia Status: Acute Problem Text: 08/01- Patient was seen by Dr. Roberts. She received 4 doses of .25 digoxin overnight and was started on verapamil, bisoprolol, and eliquis. She continues to be tachycardic in the 140's but intermittently it will slow down and you can better appreciate a 2:1 or 3:1 AV block consistent with atrial flutter. CHADVASc score of 5, patient has been started on Eliquis for prevention of thrombus formation. Patient continues to be asymptomatic. Cardiology recommendations appreciated, will continue with current plan at this time. 07/31-EKG looks like probable Atrial Flutter - HR remains in the 140s despite IV Bolus yesterday. BP normalized. Does not appear clinically dehydrated, byut will hold pm dose of Lasix. Not getting Bronchodilators. Currently without dyspnea or CP. Check f/u Cardiac Enzymes & mag level Move to PCU - Dr. Muñoz consulted (followed by Dr. Esposito in past for HTN) (2) Pneumonia Status: Acute Problem Text: 08/01- Patient's WBC is higher today although that could be an effect of the steroids. We will keep her IV antibiotics for now as she feels better than prior to admission and likely transition her to PO antibiotics tomorrow. 07/31-Currently getting IV Rocephin and Zithromax B/C pending (3) COPD exacerbation Status: Acute Response to Treatment: Improving Problem Text: 08/01- Patient was switched to 40 mg IV BID from TID, will likely transition her to PO steroids tomorrow as I still appreciate wheezes in her lung jacome. 07/31-Cont IV Solumedrol - Has prn nebs ordered, but has only been given this once in ER Normally on Advair and Spiriva Restart Spiriva Chronic COPD on 2L NC at baseline - follows with Dr. Daley in Office - frequent exacerbations requiring steroids and abx over last few months (4) Nicotine dependence Status: Chronic Problem Text: Continues to smoke (5) CKD stage 3 due to type 2 diabetes mellitus Status: Chronic Response to Treatment: Stable Problem Text: 08/01-Patient's GFR is >60 with normal BUN/Cr, likely not CKD. (6) IDDM (insulin dependent diabetes mellitus) Status: Chronic Response to Treatment: Stable Problem Text: 07/31- Getting half dose of her usual Lantus (pm dose on hold) cont SSI - adjust long acting insulin as needed (7) HTN (hypertension) Status: Chronic Response to Treatment: Stable (8) Systolic CHF, chronic Permanent Comment: EF 35% per Echo 2017 Last Edited By: PRESLEY Mendez on Jul 31, 2018 10:48 Status: Chronic Response to Treatment: Stable Problem Text: 08/01-Holding AM dose of lasix as patients SBP is in the 90's and she is not showing signs of volume overload, will continue tomorrow. (9) DARSHAN on CPAP Status: Chronic Problem Text: non-compliant with CPAP (10) Dementia Status: Chronic Response to Treatment: Stable Problem Text: 07/31-mild - on Aricept - at Baseline today Plan/VTE VTE Prophylaxis Ordered?: Yes (Start Lovenox today) Plan Therapy: PT Advance Directives: DNR (Jaimee completed MOLST 07/31/18 DNR/DNI) VS, I&O, 24H, Fishbone Vital Signs/I&O Vital Signs Date Time Temp Pulse Resp B/P (MAP) Pulse Ox O2 Delivery O2 Flow Rate FiO2 08/01/18 12:00 97.6 95 21 123/77 (92) 100 2.0 07/30/18 16:41 Nasal Cannula I&O- Last 24 Hours up to 6 AM 08/01/18 06:00 Intake Total 4200 ml Output Total 4900 ml Balance -700 ml Laboratory Data 24H LABS Laboratory Tests 2 07/31/18 16:52: Bedside Glucose (Misc Panel) 162H 07/31/18 20:40: Bedside Glucose (Misc Panel) 227H 08/01/18 04:38: Nucleated Red Blood Cells % (auto) 0.0, Anion Gap 1L, Glomerular Filtration Rate > 60.0, Blood Urea Nitrogen 15, Creatinine 0.78, Sodium Level 131L, Potassium Level 4.6, Chloride Level 94L, Carbon Dioxide Level 36H, Calcium Level 8.4L, Aspartate Amino Transf (AST/SGOT) 3L, Alanine Aminotransferase (ALT/SGPT) 14, Alkaline Phosphatase 93, Total Bilirubin 0.3, Total Protein 5.6L, Albumin 2.6L, Albumin/Globulin Ratio 0.87L 08/01/18 11:48: Bedside Glucose (Misc Panel) 137H CBC/BMP Laboratory Tests 08/01/18 04:38 Red Blood Count 3.86 L, Mean Corpuscular Volume 89.1, Mean Corpuscular Hemoglobin 28.2, Mean Corpuscular Hemoglobin Concent 31.7 L, Red Cell Distribution Width 14.5, Calcium Level 8.4 L, Aspartate Amino Transf (AST/SGOT) 3 L, Alanine Aminotransferase (ALT/SGPT) 14, Alkaline Phosphatase 93, Total Bilirubin 0.3, Total Protein 5.6 L, Albumin 2.6 L Microbiology Microbiology 07/30/18 Blood Culture - Preliminary, Resulted No Growth after 48 hours. All Specime... 07/30/18 Blood Culture - Preliminary, Resulted No Growth after 48 hours. All Specime... GME ATTESTATION GME ATTESTATION My faculty preceptor for this patient encounter was physically present during the encounter and was fully available. All aspects of the patient interview, examination, medical decision making process, and medical care plan development were reviewed and approved by the faculty preceptor. The faculty preceptor is aware and concurs with the plan as stated in the body of this note and will attest to such by his/her cosignature. VAUGHN BLANCHARD DO Aug 01, 2018 14:36
[2018-08-01] MEDS: TIOTROPIUM INHALER/CAPSULE (SPIRIVA) INH SCH (15:41)
[2018-08-01] MEDS: AZITHROMYCIN INJ 500 MG, VIAL MATE ADAPTER 1 EACH in D5W 250 ML IV SCH (15:47)
--- NOTE | 2018-08-01 15:49 | IPN ---
DATE: 08/01/2018 Mrs. Dacia Caal was seen earlier today. She was supine in bed in no acute distress at rest. She stated she feels fine, and she would like to go home. She was in initially admitted on 07/30/2018 with exacerbation of chronic obstructive pulmonary disease (COPD) and then was found to be in atrial fibrillation with a rapid ventricular rate. She was seen by Dr. Muñoz on 07/31/2018. Patient seems to be on a beta rajwinder as well as calcium channel rajwinder, and received about a total of 1 gram of digoxin. Her heart rate now seems to be under much better control. She also was started on anticoagulation therapy, and there is no report of bleeding. PHYSICAL EXAMINATION: Patient is alert and oriented in no acute distress at rest and very pleasant. VITAL SIGNS: This morning when I saw her revealed a blood pressure of 123/77 with a pulse of 94, respirations 18-20, and her maximum temperature is 97.8 degrees Fahrenheit with an oxygen saturation of 100% on 2 liters nasal cannula. HEAD: Atraumatic. NECK: Supple, and I could not appreciate any jugular venous distention (JVD) while sitting up in the chair. LUNGS: Did not revealed any wheezing or crackles. HEART: Revealed an irregular heart sound without gallops. The point of maximal impulse (PMI) is not displaced. There is no rub. ABDOMEN: Unremarkable. EXTREMITIES: Reveal trace lower leg edema. NEUROLOGIC: Negative for focal deficit. LABORATORY DATA: CBC revealed a WBC of 15.8, hemoglobin 10.9, hematocrit 34.4, and platelets 287,000. BMP revealed a sodium of 131, potassium 4.6, chloride 94, CO2 of 36, BUN 15, creatinine 0.78, GFR more than 60, fasting glucose 121, calcium 8.4. Liver enzymes revealed a total bilirubin of 0.3, AST 3, ALT 14, alkaline phosphatase 93, total protein 5.6, albumin 2.6. Serum troponin was less than 0.02 times two. IMPRESSION: 1. Atrial flutter/atrial fibrillation, newly diagnosed and now under control with current medications. Patient will continue the same, but I would stay away from digoxin at this present time because of verapamil. I have noticed also she is on Aricept, and I will comment to switch it to a second generation type drug. She may continue with the beta rajwinder and the calcium channel rajwinder. She is also on Eliquis for prevention of thromboembolic events. She will be monitored for bleeding. Her intravenous (IV) Lasix has been on hold, and this can be monitored and given as needed for weight gain and increased pedal edema. We shall monitor closely her input and output to prevent diastolic heart failure. 2. Pneumonia, and this is being addressed, on Rocephin and Zithromax. 3. History of chronic obstructive pulmonary disease (COPD), status post exacerbation. It seems that she has responded to the treatment of pneumonia and the Solu-Medrol. She does have a history of smoking. 4. Diabetes mellitus. This is being addressed. 5. Hypertension. Blood pressure seems to be under control. 6. History of obstructive sleep apnea, and according to the chart she has a history of noncompliance. 7. Dementia. As mentioned above, I will stop the Aricept, and she can switch to Namenda, unlikely to cause heart block. It was a pleasure to participate in the care of Mrs. Dacia Caal for her underlying cardiac condition. I will continue to monitor her along with you over the weekend. Please do not hesitate to call if any questions. ROMERO
[2018-08-01] MEDS: ATORVASTATIN 20 MG TAB PO SCH (20:28)
[2018-08-01] MEDS: ALLOPURINOL 100 MG TAB PO SCH (20:28)
[2018-08-01] MEDS: TAMSULOSIN 0.4 MG CAP PO SCH (20:28)
[2018-08-01] MEDS: traZODone 50 MG TAB PO SCH (20:28)
[2018-08-01] MEDS: tiZANidine 4 MG TAB PO SCH (20:29)
[2018-08-02] VITALS (8 sets, daily range): BP systolic 91–145; BP diastolic 62–90
[2018-08-02] MEDS: VERAPAMIL 40 MG TAB PO SCH ×4 (04:49→20:30)
[2018-08-02 05:37] LABS: HEMATOCRIT 34.9 % (36.0-47.0); MEAN CORPUSCULAR HEMOGLOBIN 28.6 pg (27.0-33.0); MEAN CORPUSCULAR HGB CONC 31.5 g/dl (32.0-36.5); MEAN CORPUSCULAR VOLUME 90.6 fl (80.0-96.0); PLATELET COUNT, AUTOMATED 297 10^3/uL (150-450); RED BLOOD COUNT 3.85 10^6/uL (4.00-5.40); WHITE BLOOD COUNT 13.9 10^3/uL (4.0-10.0)
[2018-08-02 05:56] LABS: ALBUMIN 2.6 GM/DL (3.2-5.2); ALT/SGPT 15 U/L (12-78); BILIRUBIN,TOTAL 0.2 MG/DL (0.2-1.0); BLOOD UREA NITROGEN 16 MG/DL (7-18); CARBON DIOXIDE LEVEL 32 MEQ/L (21-32); CHLORIDE LEVEL 94 MEQ/L (98-107); CREATININE FOR GFR 0.73 MG/DL (0.55-1.30); GLOMERULAR FILTRATION RATE > 60.0 (>39); GLUCOSE, FASTING 122 MG/DL (70-100); MAGNESIUM LEVEL 2.4 MG/DL (1.8-2.4); POTASSIUM SERUM 4.3 MEQ/L (3.5-5.1); SODIUM LEVEL 132 MEQ/L (136-145); TOTAL PROTEIN 5.5 GM/DL (6.4-8.2)
[2018-08-02] MEDS: LEVOTHYROXINE 50MCG TABLET (0.05MG) PO SCH (06:00)
[2018-08-02] MEDS: TIOTROPIUM INHALER/CAPSULE (SPIRIVA) INH SCH (07:46)
[2018-08-02] MEDS: HumaLOG INSULIN (NovoLOG) PER UNIT SC SCH ×4 (07:59→21:00)
[2018-08-02] MEDS: cefTRIAXone SOD 1 GM in D5W MINI-BAG PLUS 50 ML IV SCH (09:27)
[2018-08-02] MEDS: FUROSEMIDE 80 MG TAB PO SCH (09:28)
[2018-08-02] MEDS: methylPREDNISolone INJ 40 MG/1 ML VIAL (J2920) IV SCH ×2 (09:28→20:31)
[2018-08-02] MEDS: OMEPRAZOLE 20 MG CAP PO SCH (09:29)
[2018-08-02] MEDS: FAMOTIDINE 20 MG TAB PO SCH (09:30)
[2018-08-02] MEDS: DULoxetine 30 MG CAP (CYMBALTA) PO SCH (09:30)
[2018-08-02] MEDS: MAGNESIUM OXIDE 400 MG TAB (MAG-OX) PO SCH ×3 (09:30→20:30)
[2018-08-02] MEDS: LOSARTAN 25 MG TAB PO SCH (09:30)
[2018-08-02] MEDS: GABAPENTIN 300 MG CAP PO SCH ×4 (09:30→20:30)
[2018-08-02] MEDS: FENOFIBRATE 145 MG TAB (TRICOR) PO SCH (09:30)
[2018-08-02] MEDS: BISOPROLOL FUMARATE 5 MG TAB PO SCH (09:31)
[2018-08-02] MEDS: LEVEMIR (INSULIN DETEMIR) 1 UNITS/0.01ML SC SCH ×2 (09:32→20:31)
[2018-08-02] MEDS: APIXABAN 5 MG TAB (ELIQUIS) PO SCH ×2 (09:32→20:30)
[2018-08-02] MEDS: ASPIRIN 81 MG ENTERIC TAB PO SCH (09:32)
[2018-08-02] MEDS: OCUVITE 1 TAB PO SCH ×2 (12:35→20:30)
[2018-08-02] MEDS: FEXOFENADINE 60 MG TAB PO SCH (12:35)
[2018-08-02] MEDS: VENLAFAXINE 37.5 MG TAB PO SCH ×2 (12:35→20:30)
[2018-08-02] MEDS ORDERED: DIGOXIN INJ 0.5 MG/2 ML AMP (J1160) IV ONE (13:15)
[2018-08-02] MEDS: AZITHROMYCIN INJ 500 MG, VIAL MATE ADAPTER 1 EACH in D5W 250 ML IV SCH (15:36)
[2018-08-02] MEDS ORDERED: METOPROLOL 5 MG/5 ML VIAL IV ONE (19:00)
[2018-08-02] MEDS: tiZANidine 4 MG TAB PO SCH (20:30)
[2018-08-02] MEDS: ALLOPURINOL 100 MG TAB PO SCH (20:30)
[2018-08-02] MEDS: traZODone 50 MG TAB PO SCH (20:30)
[2018-08-02] MEDS: TAMSULOSIN 0.4 MG CAP PO SCH (20:30)
[2018-08-02] MEDS: ATORVASTATIN 20 MG TAB PO SCH (20:30)
--- NOTE | 2018-08-03 00:06 | IPNPDOC ---
Subjective Date Seen The patient was seen on 08/02/18. Subjective Chief Complaint/HPI States she is feeling much better, though her heart rate remains uncontrolled. Denies any associated dyspnea, palpitations, or chest pain. Constitutional: Denies: Chills, Fever, Malaise Pulmonary: Reports: Cough; Denies: Dyspnea Cardiovascular: Denies: Chest Pain, Palpitations Gastrointestinal: Denies: Nausea, Vomiting, Diarrhea, Constipation Neurological: Reports: Weakness Objective Physical Examination General Exam: Positive: Alert (bright, alert sitting up in chair comfortable, speaking full sentences without dyspnea), No Acute Distress Chest Exam: Positive: Wheezing; Negative: Normal air movement, Rales, Rhonchi Heart Exam: Positive: Tachycardic; Negative: Murmurs Abdomen Exam: Positive: Normal bowel sounds, Soft; Negative: Tenderness Extremity Exam: Negative: Edema Assessment /Plan Problems (1) Tachycardia Status: Acute Problem Text: 08/02 -- appreciate the further recommendations of cardiology; she was seen by Dr. Adames over the weekend 08/01- Patient was seen by Dr. Roberts. She received 4 doses of .25 digoxin overnight and was started on verapamil, bisoprolol, and eliquis. She continues to be tachycardic in the 140's but intermittently it will slow down and you can better appreciate a 2:1 or 3:1 AV block consistent with atrial flutter. CHADVASc score of 5, patient has been started on Eliquis for prevention of thrombus formation. Patient continues to be asymptomatic. Cardiology recommendations appreciated, will continue with current plan at this time. 07/31-EKG looks like probable Atrial Flutter - HR remains in the 140s despite IV Bolus yesterday. BP normalized. Does not appear clinically dehydrated, byut will hold pm dose of Lasix. Not getting Bronchodilators. Currently without dyspnea or CP. Check f/u Cardiac Enzymes & mag level Move to PCU - Dr. Muñoz consulted (followed by Dr. Esposito in past for HTN) (2) Pneumonia Status: Acute Problem Text: 08/02 -- transitioned to PO abx 08/01- Patient's WBC is higher today although that could be an effect of the steroids. We will keep her IV antibiotics for now as she feels better than prior to admission and likely transition her to PO antibiotics tomorrow. 07/31-Currently getting IV Rocephin and Zithromax B/C pending (3) COPD exacerbation Status: Acute Response to Treatment: Improving Problem Text: 08/02 -- continues to improve, transitioned to PO steroids 08/01- Patient was switched to 40 mg IV BID from TID, will likely transition her to PO steroids tomorrow as I still appreciate wheezes in her lung jacome. 07/31-Cont IV Solumedrol - Has prn nebs ordered, but has only been given this once in ER Normally on Advair and Spiriva Restart Spiriva Chronic COPD on 2L NC at baseline - follows with Dr. Daley in Office - frequent exacerbations requiring steroids and abx over last few months (4) Nicotine dependence Status: Chronic Problem Text: Continues to smoke (5) CKD stage 3 due to type 2 diabetes mellitus Status: Chronic Response to Treatment: Stable Problem Text: 08/01-Patient's GFR is >60 with normal BUN/Cr, likely not CKD. (6) IDDM (insulin dependent diabetes mellitus) Status: Chronic Response to Treatment: Stable Problem Text: 07/31- Getting half dose of her usual Lantus (pm dose on hold) cont SSI - adjust long acting insulin as needed (7) HTN (hypertension) Status: Chronic Response to Treatment: Stable (8) Systolic CHF, chronic Permanent Comment: EF 35% per Echo 2017 Last Edited By: PRESLEY Mendez on Jul 31, 2018 10:48 Status: Chronic Response to Treatment: Stable Problem Text: 08/01-Holding AM dose of lasix as patients SBP is in the 90's and she is not showing signs of volume overload, will continue tomorrow. (9) DARSHAN on CPAP Status: Chronic Problem Text: non-compliant with CPAP (10) Dementia Status: Chronic Response to Treatment: Stable Problem Text: 08/02 -- cardiology stopped Aricept, and I switched her to Namenda 07/31-mild - on Aricept - at Baseline today Plan/VTE VTE Prophylaxis Ordered?: Yes (Start Lovenox today) Plan Therapy: PT Advance Directives: DNR (Jaimee completed MOLST 07/31/18 DNR/DNI) VS, I&O, 24H, Fishbone Vital Signs/I&O Vital Signs Date Time Temp Pulse Resp B/P (MAP) Pulse Ox O2 Delivery O2 Flow Rate FiO2 08/02/18 20:30 95 118/68 08/02/18 20:00 97.3 20 97 2.0 07/30/18 16:41 Nasal Cannula I&O- Last 24 Hours up to 6 AM 08/03/18 06:00 Intake Total 3425 ml Output Total 2900 ml Balance 525 ml Laboratory Data 24H LABS Laboratory Tests 2 08/02/18 05:04: Nucleated Red Blood Cells % (auto) 0.0, Anion Gap 6L, Glomerular Filtration Rate > 60.0, Blood Urea Nitrogen 16, Creatinine 0.73, Sodium Level 132L, Potassium Level 4.3, Chloride Level 94L, Carbon Dioxide Level 32, Calcium Level 8.0L, Aspartate Amino Transf (AST/SGOT) 5L, Alanine Aminotransferase (ALT/SGPT) 15, Alkaline Phosphatase 89, Total Bilirubin 0.2, Total Protein 5.5L, Albumin 2.6L, Magnesium Level 2.4, Albumin/Globulin Ratio 0.90L 08/02/18 11:47: Bedside Glucose (Misc Panel) 118H 08/02/18 17:20: Bedside Glucose (Misc Panel) 265H 08/02/18 20:17: Bedside Glucose (Misc Panel) 231H CBC/BMP Laboratory Tests 08/02/18 05:04 Red Blood Count 3.85 L, Mean Corpuscular Volume 90.6, Mean Corpuscular Hemoglobin 28.6, Mean Corpuscular Hemoglobin Concent 31.5 L, Red Cell Distribu tion Width 14.3, Calcium Level 8.0 L, Aspartate Amino Transf (AST/SGOT) 5 L, Alanine Aminotransferase (ALT/SGPT) 15, Alkaline Phosphatase 89, Total Bilirubin 0.2, Total Protein 5.5 L, Albumin 2.6 L Microbiology Microbiology 07/30/18 Blood Culture - Preliminary, Resulted No Growth after 72 hours. All specime... 07/30/18 Blood Culture - Preliminary, Resulted No Growth after 72 hours. All specime... KALYN ABBOTT DO Aug 03, 2018 00:06
[2018-08-03 04:00] VITALS: BP 123/68
[2018-08-03 05:46] LABS: HEMATOCRIT 33.6 % (36.0-47.0); HEMOGLOBIN 10.8 g/dl (12.0-15.5); MEAN CORPUSCULAR HEMOGLOBIN 28.6 pg (27.0-33.0); MEAN CORPUSCULAR HGB CONC 32.1 g/dl (32.0-36.5); MEAN CORPUSCULAR VOLUME 88.9 fl (80.0-96.0); PLATELET COUNT, AUTOMATED 273 10^3/uL (150-450); RED BLOOD COUNT 3.78 10^6/uL (4.00-5.40); WHITE BLOOD COUNT 13.8 10^3/uL (4.0-10.0)
[2018-08-03] MEDS: LEVOTHYROXINE 50MCG TABLET (0.05MG) PO SCH (06:00)
[2018-08-03 06:04] LABS: BLOOD UREA NITROGEN 18 MG/DL (7-18); CALCIUM LEVEL 8.1 MG/DL (8.8-10.2); CARBON DIOXIDE LEVEL 36 MEQ/L (21-32); CHLORIDE LEVEL 91 MEQ/L (98-107); CREATININE FOR GFR 0.93 MG/DL (0.55-1.30); GLOMERULAR FILTRATION RATE > 60.0 (>39); GLUCOSE, FASTING 153 MG/DL (70-100); POTASSIUM SERUM 4.2 MEQ/L (3.5-5.1); SODIUM LEVEL 131 MEQ/L (136-145)
[2018-08-03] MEDS: TIOTROPIUM INHALER/CAPSULE (SPIRIVA) INH SCH (07:26)
[2018-08-03] MEDS: HumaLOG INSULIN (NovoLOG) PER UNIT SC SCH ×4 (07:53→20:14)
[2018-08-03 08:00] VITALS: BP 171/65
--- NOTE | 2018-08-03 08:11 | IPN ---
DATE: 08/02/2018 Mrs. Dacia Caal was seen earlier this morning. She was sitting up in bed in no acute distress at rest. She was transferred yesterday from ICU to PCU. She was seen by Dr. Muñoz for atrial fibrillation. She denies any chest pain, shortness of breath, orthopnea, PND. She does complain that she feels that her heart is going fast when I saw her and she was seen earlier today as well as in the evening. There is no associated chest pain with the palpations, rapid heart rate. There is no bleeding. PHYSICAL EXAMINATION: The patient is alert and oriented, in no acute distress and her vital signs reveal a blood pressure 122/72 with a pulse of 139, respiration 18 and a maximum temperature 97, oxygen saturation 97% on 2 liters nasal canula. Head exam: Atraumatic. Neck: Supple. No JVD appreciated. The lungs have minimal wheezing. No crackles. Heart exam: Revealed irregular sounds with rubs and gallops, tachycardiac. The PMI has been displaced. There is no rub. Abdomen: Unremarkable. Neurologic exam negative for focal deficits. LABS: CBC revealed a WBC 13.9, hemoglobin 11.0, hematocrit 34.9, platelet 297,000. BMP revealed a sodium of 132, potassium 4.3, chloride 94, CO2 32, BUN 16, creatinine 0.73, GFR more than 60, fasting glucose 122, calcium 8.0. Liver enzymes revealed a total bilirubin of 0.2, AST 5, ALT 15, total protein 5.5 with a serum albumin 2.6. Telemetry was reviewed and revealed atrial fibrillation with uncontrolled ventricular rate. IMPRESSION: 1. Atrial fibrillation, not quite under control while on the Verapamil and the beta-rajwinder/Bystolic. I have increased the verapamil to the current dose and during the day patient continued to be in atrial fibrillation with a rapid ventricular rate. She was given a dose of IV beta rajwinder. Her heart rate has been less than 100 per minute. We will continue current medications, she is on Eliquis for prevention for thromboembolic events. She denies any bleeding. She also received a dose of Digoxin earlier today. I was trying to stay away from it in view of the Verapamil. If needed, the Bisoprolol can be increased for blood pressure. 2. Pneumonia. This is being addressed, possible an exacerbation of COPD, on Prednisone. 3. History of hypertension, on treatment. 4. Diabetes mellitus, being addressed. 5. History of sleep apnea. 6. History of dementia, now on Namenda. The Aricept was discontinued because of potential high degree AV block, in the setting of 2-3 AV block agents. It was a pleasure to participate in the care of Mrs. Dacia Caal for her underlying cardiac condition. Dr. Muñoz will be seeing her tomorrow 08/03/2018. Please do not hesitate to call if there are any questions. WILMARD
[2018-08-03] MEDS: LEVEMIR (INSULIN DETEMIR) 1 UNITS/0.01ML SC SCH ×2 (08:21→20:14)
[2018-08-03] MEDS: ASPIRIN 81 MG ENTERIC TAB PO SCH (08:21)
[2018-08-03] MEDS: MEMANTINE 5MG TABLET (NAMENDA) PO SCH (08:22)
[2018-08-03] MEDS: BISOPROLOL FUMARATE 5 MG TAB PO SCH (08:22)
[2018-08-03] MEDS: CEFDINIR 300 MG CAP (OMNICEF) PO SCH ×2 (08:23→20:16)
[2018-08-03] MEDS: DULoxetine 30 MG CAP (CYMBALTA) PO SCH (08:23)
[2018-08-03] MEDS: FUROSEMIDE 80 MG TAB PO SCH (08:23)
[2018-08-03] MEDS: FEXOFENADINE 60 MG TAB PO SCH (08:23)
[2018-08-03] MEDS: VENLAFAXINE 37.5 MG TAB PO SCH ×2 (08:23→20:16)
[2018-08-03] MEDS: OCUVITE 1 TAB PO SCH ×2 (08:23→20:15)
[2018-08-03] MEDS: LOSARTAN 25 MG TAB PO SCH (08:24)
[2018-08-03] MEDS: FAMOTIDINE 20 MG TAB PO SCH (08:24)
[2018-08-03] MEDS: OMEPRAZOLE 20 MG CAP PO SCH (08:24)
[2018-08-03] MEDS: AZITHROMYCIN 250 MG TAB PO SCH (08:24)
[2018-08-03] MEDS: FENOFIBRATE 145 MG TAB (TRICOR) PO SCH (08:24)
[2018-08-03] MEDS: MAGNESIUM OXIDE 400 MG TAB (MAG-OX) PO SCH ×3 (08:24→20:15)
[2018-08-03] MEDS: APIXABAN 5 MG TAB (ELIQUIS) PO SCH ×2 (08:25→20:17)
[2018-08-03] MEDS: predniSONE 20 MG TAB PO SCH (08:25)
[2018-08-03] MEDS: GABAPENTIN 300 MG CAP PO SCH ×4 (08:25→20:17)
[2018-08-03] MEDS: VERAPAMIL 40 MG TAB PO SCH ×3 (08:53→20:16)
--- NOTE | 2018-08-03 10:32 | IPNPDOC ---
Subjective Date Seen The patient was seen on 08/03/18. Subjective Chief Complaint/HPI Pt this morning states that she is feeling pretty well. She has no new concerns. She is eager to return home. General: Denies: Fatigue Constitutional: Denies: Fever Pulmonary: Denies: Dyspnea, Cough Cardiovascular: Denies: Chest Pain, Palpitations Gastrointestinal: Denies: Nausea, Vomiting, Diarrhea Neurological: Denies: Weakness Psych: Reports: Mood Normal Objective Physical Examination General Exam: Positive: Alert (bright, alert sitting up in chair comfortable, speaking full sentences without dyspnea), No Acute Distress Chest Exam: Positive: Wheezing; Negative: Normal air movement, Rales, Rhonchi Heart Exam: Positive: Rate Normal, Irregular Rhythm; Negative: Murmurs Abdomen Exam: Positive: Normal bowel sounds, Soft; Negative: Tenderness Extremity Exam: Positive: Edema (trace BLE) Neuro Exam: Positive: Normal Speech Psych Exam: Positive: Mood NL Assessment /Plan Problems (1) Tachycardia Status: Acute Problem Text: HR 90-110 on biso 7.5, verap 120 TID, loaded c dig 0.25 IV x 3 (last dose 08/02) 08/03 Dr Adames saw the pt over the weekend. She has followed with Dr Muñoz as an outpt so [facility] to assume Cardio care today. Await further input. Eliquis sent to [facility] to confirm coverage, PFS aware. 08/01- Patient was seen by Dr. Roberts. She received 4 doses of .25 digoxin overnight and was started on verapamil, bisoprolol, and eliquis. She continues to be tachycardic in the 140's but intermittently it will slow down and you can better appreciate a 2:1 or 3:1 AV block consistent with atrial flutter. CHADVASc score of 5, patient has been started on Eliquis for prevention of thrombus formation. Patient continues to be asymptomatic. Cardiology recommendations appreciated, will continue with current plan at this time. (2) Pneumonia Status: Acute Problem Text: 08/02 -- transitioned to PO abx 08/01- Patient's WBC is higher today although that could be an effect of the steroids. We will keep her IV antibiotics for now as she feels better than prior to admission and likely transition her to PO antibiotics tomorrow. 07/31-Currently getting IV Rocephin and Zithromax B/C pending (3) COPD exacerbation Status: Acute Response to Treatment: Improving Problem Text: 08/02 -- continues to improve, transitioned to PO steroids 08/01- Patient was switched to 40 mg IV BID from TID, will likely transition her to PO steroids tomorrow as I still appreciate wheezes in her lung jacome. 07/31-Cont IV Solumedrol - Has prn nebs ordered, but has only been given this once in ER Normally on Advair and Spiriva Restart Spiriva Chronic COPD on 2L NC at baseline - follows with Dr. Daley in Office - frequent exacerbations requiring steroids and abx over last few months (4) Nicotine dependence Status: Chronic Problem Text: Continues to smoke (5) CKD stage 3 due to type 2 diabetes mellitus Status: Chronic Response to Treatment: Stable Problem Text: 08/01-Patient's GFR is >60 with normal BUN/Cr, likely not CKD. (6) IDDM (insulin dependent diabetes mellitus) Status: Chronic Response to Treatment: Stable Problem Text: 08/03 glu this AMA 153, monitor. 07/31- Getting half dose of her usual Lantus (pm dose on hold) cont SSI - adjust long acting insulin as needed (7) HTN (hypertension) Status: Chronic Response to Treatment: Stable (8) Systolic CHF, chronic Permanent Comment: EF 35% per Echo 2017 Last Edited By: PRESLEY Mendez on Jul 31, 2018 10:48 Status: Chronic Response to Treatment: Stable Problem Text: 08/01-Holding AM dose of lasix as patients SBP is in the 90's and she is not showing signs of volume overload, will continue tomorrow. (9) DARSHAN on CPAP Status: Chronic Problem Text: non-compliant with CPAP (10) Dementia Status: Chronic Response to Treatment: Stable Problem Text: 08/02 -- cardiology stopped Aricept, and I switched her to Namenda 07/31-mild - on Aricept - at Baseline today (11) Physical deconditioning Status: Acute Problem Text: 08/03 wants to dc home-lives alone in [place]-check HSE, at HD 2L NC O2 Plan/VTE VTE Prophylaxis Ordered?: Yes (Start Lovenox today) Plan Therapy: PT Advance Directives: DNR (Jaimee completed MOLST 07/31/18 DNR/DNI) VS, I&O, 24H, Gracie Vital Signs/I&O Vital Signs Date Time Temp Pulse Resp B/P (MAP) Pulse Ox O2 Delivery O2 Flow Rate FiO2 08/03/18 08:53 98 171/65 08/03/18 08:00 97.0 22 98 2.0 07/30/18 16:41 Nasal Cannula I&O- Last 24 Hours up to 6 AM 08/03/18 06:00 Intake Total 4145 ml Output Total 3900 ml Balance 245 ml Laboratory Data 24H LABS Laboratory Tests 2 08/02/18 11:47: Bedside Glucose (Misc Panel) 118H 08/02/18 17:20: Bedside Glucose (Misc Panel) 265H 08/02/18 20:17: Bedside Glucose (Misc Panel) 231H 08/03/18 05:04: Nucleated Red Blood Cells % (auto) 0.0, Anion Gap 4L, Glomerular Filtration Rate > 60.0, Blood Urea Nitrogen 18, Creatinine 0.93, Sodium Level 131L, Potassium Level 4.2, Chloride Level 91L, Carbon Dioxide Level 36H, Calcium Level 8.1L CBC/BMP Laboratory Tests 08/03/18 05:04 Red Blood Count 3.78 L, Mean Corpuscular Volume 88.9, Mean Corpuscular Hemoglobin 28.6, Mean Corpuscular Hemoglobin Concent 32.1, Red Cell Distribution Width 14.4, Calcium Level 8.1 L Microbiology Microbiology 07/30/18 Blood Culture - Preliminary, Resulted No Growth after 72 hours. All specime... 07/30/18 Blood Culture - Preliminary, Resulted No Growth after 72 hours. All specime... MEGHA MOREL PA-C Aug 03, 2018 10:32 Teja Franklin M.D. Aug 03, 2018 15:41
[2018-08-03 12:00] VITALS: BP 120/75
[2018-08-03] MEDS ORDERED: PILL CRUSHER/CUTTER 1 EACH XX PRN (14:30)
[2018-08-03 16:00] VITALS: BP 136/67
[2018-08-03 20:00] VITALS: BP 130/92
[2018-08-03] MEDS: traZODone 50 MG TAB PO SCH (20:16)
[2018-08-03] MEDS: TAMSULOSIN 0.4 MG CAP PO SCH (20:16)
[2018-08-03] MEDS: ALLOPURINOL 100 MG TAB PO SCH (20:17)
[2018-08-03] MEDS: tiZANidine 4 MG TAB PO SCH (20:17)
[2018-08-03] MEDS: ATORVASTATIN 20 MG TAB PO SCH (20:17)
[2018-08-03 23:59] VITALS: BP 122/79
[2018-08-04 04:00] VITALS: BP 102/98
[2018-08-04] MEDS: LEVOTHYROXINE 50MCG TABLET (0.05MG) PO SCH (05:09)
[2018-08-04 05:55] LABS: HEMATOCRIT 34.1 % (36.0-47.0); HEMOGLOBIN 11.1 g/dl (12.0-15.5); MEAN CORPUSCULAR HEMOGLOBIN 28.2 pg (27.0-33.0); MEAN CORPUSCULAR HGB CONC 32.6 g/dl (32.0-36.5); MEAN CORPUSCULAR VOLUME 86.5 fl (80.0-96.0); PLATELET COUNT, AUTOMATED 254 10^3/uL (150-450); RED BLOOD COUNT 3.94 10^6/uL (4.00-5.40); WHITE BLOOD COUNT 14.5 10^3/uL (4.0-10.0)
[2018-08-04 06:13] LABS: BLOOD UREA NITROGEN 16 MG/DL (7-18); CARBON DIOXIDE LEVEL 39 MEQ/L (21-32); CHLORIDE LEVEL 89 MEQ/L (98-107); CREATININE FOR GFR 0.74 MG/DL (0.55-1.30); GLOMERULAR FILTRATION RATE > 60.0 (>39); GLUCOSE, FASTING 83 MG/DL (70-100); POTASSIUM SERUM 3.8 MEQ/L (3.5-5.1); SODIUM LEVEL 130 MEQ/L (136-145)
[2018-08-04] MEDS: HumaLOG INSULIN (NovoLOG) PER UNIT SC SCH ×4 (07:30→20:16)
[2018-08-04] MEDS: VENLAFAXINE 37.5 MG TAB PO SCH ×2 (07:59→20:16)
[2018-08-04 08:00] VITALS: BP 121/71
[2018-08-04] MEDS: FEXOFENADINE 60 MG TAB PO SCH (08:00)
[2018-08-04] MEDS: FUROSEMIDE 80 MG TAB PO SCH (08:00)
[2018-08-04] MEDS: OCUVITE 1 TAB PO SCH ×2 (08:00→20:17)
[2018-08-04] MEDS: VERAPAMIL 40 MG TAB PO SCH ×3 (08:02→20:17)
[2018-08-04] MEDS: predniSONE 20 MG TAB PO SCH (08:02)
[2018-08-04] MEDS: CEFDINIR 300 MG CAP (OMNICEF) PO SCH ×2 (08:02→20:17)
[2018-08-04] MEDS: OMEPRAZOLE 20 MG CAP PO SCH (08:03)
[2018-08-04] MEDS: ASPIRIN 81 MG ENTERIC TAB PO SCH (08:03)
[2018-08-04] MEDS: MAGNESIUM OXIDE 400 MG TAB (MAG-OX) PO SCH ×3 (08:03→20:18)
[2018-08-04] MEDS: MEMANTINE 5MG TABLET (NAMENDA) PO SCH (08:05)
[2018-08-04] MEDS: FENOFIBRATE 145 MG TAB (TRICOR) PO SCH (08:05)
[2018-08-04] MEDS: AZITHROMYCIN 250 MG TAB PO SCH (08:05)
[2018-08-04] MEDS: GABAPENTIN 300 MG CAP PO SCH ×4 (08:05→20:18)
[2018-08-04] MEDS: FAMOTIDINE 20 MG TAB PO SCH (08:05)
[2018-08-04] MEDS: DULoxetine 30 MG CAP (CYMBALTA) PO SCH (08:05)
[2018-08-04] MEDS: APIXABAN 5 MG TAB (ELIQUIS) PO SCH ×2 (08:06→20:18)
[2018-08-04] MEDS: LOSARTAN 25 MG TAB PO SCH (08:06)
[2018-08-04] MEDS: TIOTROPIUM INHALER/CAPSULE (SPIRIVA) INH SCH (08:14)
[2018-08-04] MEDS ORDERED: BISOPROLOL FUMARATE 5 MG TAB PO SCH (09:00)
--- NOTE | 2018-08-04 09:18 | IPNPDOC ---
Subjective Date Seen The patient was seen on 08/04/18. Subjective Chief Complaint/HPI Feels well. Ambulating to BR without dyspnea Constitutional: Denies: Chills, Fever Pulmonary: Denies: Dyspnea, Cough Cardiovascular: Denies: Chest Pain, Palpitations Gastrointestinal: Denies: Nausea, Vomiting, Abdominal Pain, Diarrhea, Constipation Objective Physical Examination General Exam: Positive: Alert, No Acute Distress Chest Exam: Positive: Clear to auscultation; Negative: Rales, Rhonchi, Wheezing Heart Exam: Positive: Tachycardic, Irregular Rhythm Telemetry: Positive: Atrial fibrillation (140s) Abdomen Exam: Positive: Normal bowel sounds, Soft; Negative: Tenderness Extremity Exam: Positive: Edema (trace BL) Neuro Exam: Positive: Normal Speech Psych Exam: Positive: Mood NL Assessment /Plan Problems (1) Atrial flutter Status: Acute Problem Text: on biso 7.5, verap 120 TID, loaded c dig 0.25 IV x 3 (last dose 08/02) - Not on Digoxin daily - defer to Cardiology 08/04 increased HR as dig has worn off-attempt to dw Cards re plan (2) Tachycardia Status: Acute Problem Text: 08/01- Patient was seen by Dr. Roberts. She received 4 doses of .25 digoxin overnight and was started on verapamil, bisoprolol, and eliquis. She continues to be tachycardic in the 140's but intermittently it will slow down and you can better appreciate a 2:1 or 3:1 AV block consistent with atrial flutter. CHADVASc score of 5, patient has been started on Eliquis for prevention of thrombus formation. Patient continues to be asymptomatic. Cardiology recommendations appreciated, will continue with current plan at this time. (3) Pneumonia Status: Acute Problem Text: D2 cefdinir (prior 4D ceftr/azithro) (4) COPD exacerbation Status: Acute Response to Treatment: Improving Problem Text: 08/03 - Decrease Prednisone today On 2L NC at baseline Cont Spiriva Normally on Advair at home - should be restarted on d/c Not needing prn bronchodilators 08/02 -- continues to improve, transitioned to PO steroids 08/01- Patient was switched to 40 mg IV BID from TID, will likely transition her to PO steroids tomorrow as I still appreciate wheezes in her lung jacome. 07/31-Cont IV Solumedrol - Has prn nebs ordered, but has only been given this once in ER Normally on Advair and Spiriva Restart Spiriva Chronic COPD on 2L NC at baseline - follows with Dr. Daley in Office - frequent exacerbations requiring steroids and abx over last few months (5) Nicotine dependence Status: Chronic Problem Text: Continues to smoke (6) CKD stage 3 due to type 2 diabetes mellitus Status: Chronic Response to Treatment: Stable Problem Text: 08/01-Patient's GFR is >60 with normal BUN/Cr, likely not CKD. (7) IDDM (insulin dependent diabetes mellitus) Status: Chronic Response to Treatment: Stable Problem Text: 08/04 - BS variable on 08/03 glu this AMA 153, monitor. 07/31- Getting half dose of her usual Lantus (pm dose on hold) cont SSI - adjust long acting insulin as needed (8) HTN (hypertension) Status: Chronic Response to Treatment: Stable (9) Systolic CHF, chronic Permanent Comment: EF 35% per Echo 2017 Last Edited By: PRESLEY Mendez on Jul 31, 2018 10:48 Status: Chronic Response to Treatment: Stable Problem Text: 08/03 - Compensated On Lasix 80 q am sont Cozaar 08/01-Holding AM dose of lasix as patients SBP is in the 90's and she is not showing signs of volume overload, will continue tomorrow. (10) DARSHAN on CPAP Status: Chronic Problem Text: non-compliant with CPAP (11) Dementia Status: Chronic Response to Treatment: Stable Problem Text: 08/02 -- cardiology stopped Aricept due to risk of heart block when combined with Verap and BB. She was switched her to Namenda 07/31-mild - on Aricept - at Baseline today (12) Physical deconditioning Status: Acute Problem Text: 08/03 wants to dc home-lives alone in [place]-check HSE, at HD 2L NC O2 Plan/VTE VTE Prophylaxis Ordered?: Yes (Start Lovenox today) Plan Therapy: PT Advance Directives: DNR (Jaimee completed MOLST 07/31/18 DNR/DNI) Disposition plan for D/C home with services once stable VS, I&O, 24H, Fishbone Vital Signs/I&O Vital Signs Date Time Temp Pulse Resp B/P (MAP) Pulse Ox O2 Delivery O2 Flow Rate FiO2 08/04/18 08:06 121/74 08/04/18 08:02 146 08/04/18 08:00 97.3 20 97 2.0 07/30/18 16:41 Nasal Cannula I&O- Last 24 Hours up to 6 AM 08/04/18 06:00 Intake Total 7500 ml Output Total 5800 ml Balance 1700 ml Laboratory Data 24H LABS Laboratory Tests 2 08/03/18 11:35: Bedside Glucose (Misc Panel) 165H 08/03/18 16:28: Bedside Glucose (Misc Panel) 240H 08/03/18 19:41: Bedside Glucose (Misc Panel) 317H 08/04/18 05:38: Nucleated Red Blood Cells % (auto) 0.0, Anion Gap 2L, Glomerular Filtration Rate > 60.0, Blood Urea Nitrogen 16, Creatinine 0.74, Sodium Level 130L, Potassium Level 3.8, Chloride Level 89L, Carbon Dioxide Level 39H, Calcium Level 8.0L CBC/BMP Laboratory Tests 08/04/18 05:38 Red Blood Count 3.94 L, Mean Corpuscular Volume 86.5, Mean Corpuscular Hemoglobin 28.2, Mean Corpuscular Hemoglobin Concent 32.6, Red Cell Distribution Width 14.2, Calcium Level 8.0 L Microbiology Microbiology 07/30/18 Blood Culture - Preliminary, Resulted No Growth after 72 hours. All specime... 07/30/18 Blood Culture - Preliminary, Resulted No Growth after 72 hours. All specime... DANA LANZA PA-C Aug 04, 2018 09:18 Teja Franklin M.D. Aug 04, 2018 15:26
[2018-08-04] MEDS: LEVEMIR (INSULIN DETEMIR) 1 UNITS/0.01ML SC SCH ×2 (11:05→20:15)
[2018-08-04 12:00] VITALS: BP 125/70
[2018-08-04 16:00] VITALS: BP 129/78
[2018-08-04 20:00] VITALS: BP 127/84
[2018-08-04] MEDS: traZODone 50 MG TAB PO SCH (20:16)
[2018-08-04] MEDS: ATORVASTATIN 20 MG TAB PO SCH (20:17)
[2018-08-04] MEDS: tiZANidine 4 MG TAB PO SCH (20:18)
[2018-08-04] MEDS: ALLOPURINOL 100 MG TAB PO SCH (20:18)
[2018-08-04] MEDS: TAMSULOSIN 0.4 MG CAP PO SCH (20:18)
[2018-08-04] MEDS ORDERED: BISOPROLOL FUM 2.5 MG PER 1/2TAB PO ONE (21:30)
[2018-08-05] VITALS (8 sets, daily range): BP systolic 90–125; BP diastolic 40–80
[2018-08-05] MEDS: LEVOTHYROXINE 50MCG TABLET (0.05MG) PO SCH (05:14)
[2018-08-05 05:19] LABS: HEMATOCRIT 32.2 % (36.0-47.0); HEMOGLOBIN 10.5 g/dl (12.0-15.5); MEAN CORPUSCULAR HEMOGLOBIN 28.2 pg (27.0-33.0); MEAN CORPUSCULAR HGB CONC 32.6 g/dl (32.0-36.5); MEAN CORPUSCULAR VOLUME 86.6 fl (80.0-96.0); PLATELET COUNT, AUTOMATED 245 10^3/uL (150-450); RED BLOOD COUNT 3.72 10^6/uL (4.00-5.40); WHITE BLOOD COUNT 15.5 10^3/uL (4.0-10.0)
[2018-08-05 05:37] LABS: BLOOD UREA NITROGEN 17 MG/DL (7-18); CALCIUM LEVEL 7.8 MG/DL (8.8-10.2); CARBON DIOXIDE LEVEL 36 MEQ/L (21-32); CHLORIDE LEVEL 89 MEQ/L (98-107); CREATININE FOR GFR 0.84 MG/DL (0.55-1.30); GLOMERULAR FILTRATION RATE > 60.0 (>39); GLUCOSE, FASTING 143 MG/DL (70-100); POTASSIUM SERUM 3.7 MEQ/L (3.5-5.1); SODIUM LEVEL 128 MEQ/L (136-145)
[2018-08-05] MEDS: TIOTROPIUM INHALER/CAPSULE (SPIRIVA) INH SCH (07:43)
[2018-08-05] MEDS: HumaLOG INSULIN (NovoLOG) PER UNIT SC SCH ×4 (08:13→19:42)
[2018-08-05] MEDS: GABAPENTIN 300 MG CAP PO SCH ×4 (08:14→19:30)
[2018-08-05] MEDS: APIXABAN 5 MG TAB (ELIQUIS) PO SCH ×2 (08:14→19:30)
[2018-08-05] MEDS: CEFDINIR 300 MG CAP (OMNICEF) PO SCH ×2 (08:14→19:30)
[2018-08-05] MEDS: MAGNESIUM OXIDE 400 MG TAB (MAG-OX) PO SCH ×3 (08:15→19:29)
[2018-08-05] MEDS: ASPIRIN 81 MG ENTERIC TAB PO SCH (08:15)
[2018-08-05] MEDS: DULoxetine 30 MG CAP (CYMBALTA) PO SCH (08:15)
[2018-08-05] MEDS: FENOFIBRATE 145 MG TAB (TRICOR) PO SCH (08:16)
[2018-08-05] MEDS: FEXOFENADINE 60 MG TAB PO SCH (08:16)
[2018-08-05] MEDS: OMEPRAZOLE 20 MG CAP PO SCH (08:16)
[2018-08-05] MEDS: VENLAFAXINE 37.5 MG TAB PO SCH ×2 (08:17→19:30)
[2018-08-05] MEDS: OCUVITE 1 TAB PO SCH ×2 (08:17→19:29)
[2018-08-05] MEDS: MEMANTINE 5MG TABLET (NAMENDA) PO SCH (08:17)
[2018-08-05] MEDS: FAMOTIDINE 20 MG TAB PO SCH (08:18)
[2018-08-05] MEDS: LEVEMIR (INSULIN DETEMIR) 1 UNITS/0.01ML SC SCH ×2 (08:23→19:31)
[2018-08-05] MEDS: LOSARTAN 25 MG TAB PO SCH (08:24)
[2018-08-05] MEDS ORDERED: BISOPROLOL FUMARATE 5 MG TAB PO SCH (09:00)
[2018-08-05] MEDS ORDERED: BISOPROLOL FUMARATE 10 MG TAB PO SCH (09:00)
[2018-08-05] MEDS ORDERED: predniSONE 20 MG TAB PO SCH (09:00)
[2018-08-05] MEDS ORDERED: NS 500 ML IV ONE (09:15)
--- NOTE | 2018-08-05 09:24 | IPNPDOC ---
Subjective Date Seen The patient was seen on 08/05/18. Subjective Chief Complaint/HPI Feels well. No SOB, CP, palpitations or lightheadedness Constitutional: Denies: Chills, Fever Pulmonary: Denies: Dyspnea, Cough Cardiovascular: Denies: Chest Pain, Palpitations Gastrointestinal: Denies: Nausea, Vomiting, Abdominal Pain, Diarrhea, Constipation Objective Physical Examination General Exam: Positive: Alert, No Acute Distress Chest Exam: Positive: Clear to auscultation; Negative: Rales, Rhonchi, Wheezing Heart Exam: Positive: Tachycardic, Irregular Rhythm Telemetry: Positive: Atrial fibrillation (140s) Abdomen Exam: Positive: Normal bowel sounds, Soft; Negative: Tenderness Extremity Exam: Negative: Edema Neuro Exam: Positive: Normal Speech Psych Exam: Positive: Mood NL Assessment /Plan Problems (1) Atrial flutter Status: Acute Problem Text: 08/05 - Hypotensive this am BP 90/40, HR 140s. (Asymptomatic). Has been diuresing large amounts and has become hyponatremic, hypovolemic clinically on Lasix 80 daily. I have stopped the Lasix and Losartan this am and will Give 500 cc IVF Bolus to improve BP/Volume status and see if HR responds. Hold Bisoprolol and Verapamil for now as well until BP improves. Dr. Muñoz aware of above and plans to check HR and BP later ths morning to decide doses of Bisoprolol and Verapamil. 4/2 increased HR as dig has worn off-attempt to dw Cards re plan on biso 7.5, verap 120 TID, loaded c dig 0.25 IV x 3 (last dose 08/02) - Not on Digoxin daily - defer to Cardiology (2) Tachycardia Status: Acute Problem Text: See Above 08/01- Patient was seen by Dr. Roberts. She received 4 doses of .25 digoxin overnight and was started on verapamil, bisoprolol, and eliquis. She continues to be tachycardic in the 140's but intermittently it will slow down and you can better appreciate a 2:1 or 3:1 AV block consistent with atrial flutter. CHADVASc score of 5, patient has been started on Eliquis for prevention of thrombus formation. Patient continues to be asymptomatic. Cardiology recommendations appreciated, will continue with current plan at this time. (3) Pneumonia Status: Acute Problem Text: 08/05 - D3 cefdinir (prior 4D ceftr/azithro) (4) COPD exacerbation Status: Acute Response to Treatment: Improving Problem Text: 08/04 - Decrease prednisone further to 30 mg daily On 2L NC at baseline Cont Spiriva Normally on Advair at home - should be restarted on d/c Not needing prn bronchodilators 08/02 -- continues to improve, transitioned to PO steroids 08/01- Patient was switched to 40 mg IV BID from TID, will likely transition her to PO steroids tomorrow as I still appreciate wheezes in her lung jacome. 07/31-Cont IV Solumedrol - Has prn nebs ordered, but has only been given this once in ER Normally on Advair and Spiriva Restart Spiriva Chronic COPD on 2L NC at baseline - follows with Dr. Daley in Office - frequent exacerbations requiring steroids and abx over last few months (5) Nicotine dependence Status: Chronic Problem Text: Has been without cigarettes this entire hospitalization without need for Nicotine replacement - I encouraged her to try to remain Cigarette free when she goes home - She agrees (6) CKD stage 3 due to type 2 diabetes mellitus Status: Chronic Response to Treatment: Stable Problem Text: 08/01-Patient's GFR is >60 with normal BUN/Cr, likely not CKD. (7) IDDM (insulin dependent diabetes mellitus) Status: Chronic Response to Treatment: Stable Problem Text: 08/05 - Levemir 60/44 with SSI coverage. Blood sugars in 200s - 300. Tapering prednisone should help some. May need increased Levemir dose depending on trend over next couple of days 08/04 - BS variable on 08/03 glu this AMA 153, monitor. 07/31- Getting half dose of her usual Lantus (pm dose on hold) cont SSI - adjust long acting insulin as needed (8) HTN (hypertension) Status: Chronic Response to Treatment: Stable (9) Systolic CHF, chronic Permanent Comment: EF 35% per Echo 2017 Last Edited By: PRESLEY Mendez on Jul 31, 2018 10:48 Status: Chronic Response to Treatment: Stable Problem Text: 08/04 - See above - D/C Lasix and Losartan today due to hypotension/hyponatremia/dehydration 08/03 - Compensated On Lasix 80 q am derickt Rosita 08/01-Holding AM dose of lasix as patients SBP is in the 90's and she is not showing signs of volume overload, will continue tomorrow. (10) DARSHAN on CPAP Status: Chronic Problem Text: non-compliant with CPAP (11) Dementia Status: Chronic Response to Treatment: Stable Problem Text: 08/02 -- cardiology stopped Aricept due to risk of heart block when combined with Verap and BB. She was switched her to Namenda 07/31-mild - on Aricept - at Baseline today (12) Physical deconditioning Status: Acute Problem Text: 08/03 wants to dc home-lives alone in [place]-check HSE, at HD 2L [place] O2 Plan/VTE VTE Prophylaxis Ordered?: Yes (Start Lovenox today) Plan Therapy: PT Advance Directives: DNR (Jaimee completed MOLST 07/31/18 DNR/DNI) VS, I&O, 24H, Fishbone Vital Signs/I&O Vital Signs Date Time Temp Pulse Resp B/P (MAP) Pulse Ox O2 Delivery O2 Flow Rate FiO2 08/05/18 08:24 90/40 08/05/18 04:00 2.0 08/05/18 04:00 96.6 76 18 96 07/30/18 16:41 Nasal Cannula I&O- Last 24 Hours up to 6 AM 08/05/18 06:00 Intake Total 2640 ml Output Total 5700 ml Balance -3060 ml Laboratory Data 24H LABS Laboratory Tests 2 08/04/18 10:39: Bedside Glucose (Misc Panel) 208H 08/04/18 12:13: Bedside Glucose (Misc Panel) 131H 08/04/18 17:10: Bedside Glucose (Misc Panel) 242H 08/04/18 19:44: Bedside Glucose (Misc Panel) 321H 08/05/18 04:35: Nucleated Red Blood Cells % (auto) 0.0, Anion Gap 3L, Glomerular Filtration Rate > 60.0, Blood Urea Nitrogen 17, Creatinine 0.84, Sodium Level 128L, Potassium Level 3.7, Chloride Level 89L, Carbon Dioxide Level 36H, Calcium Level 7.8L CBC/BMP Laboratory Tests 08/05/18 04:35 Red Blood Count 3.72 L, Mean Corpuscular Volume 86.6, Mean Corpuscular Hemoglobin 28.2, Mean Corpuscular Hemoglobin Concent 32.6, Red Cell Distribution Width 14.1, Calcium Level 7.8 L Microbiology Microbiology 07/30/18 Blood Culture - Final, Complete NO GROWTH AFTER 5 DAYS 07/30/18 Blood Culture - Final, Complete NO GROWTH AFTER 5 DAYS DANA LANZA PA-C Aug 05, 2018 09:24
[2018-08-05] MEDS ORDERED: SLF 3 ML SYR IV PRN (12:00)
[2018-08-05] MEDS: SLF 3 ML SYR IV SCH ×2 (13:54→20:43)
[2018-08-05] MEDS ORDERED: DIGOXIN 0.25 MG TAB PO ONE ×3 (18:00→23:30)
[2018-08-05] MEDS: ATORVASTATIN 20 MG TAB PO SCH (19:29)
[2018-08-05] MEDS: traZODone 50 MG TAB PO SCH (19:30)
[2018-08-05] MEDS: ALLOPURINOL 100 MG TAB PO SCH (19:30)
[2018-08-05] MEDS: tiZANidine 4 MG TAB PO SCH (19:30)
[2018-08-05] MEDS: TAMSULOSIN 0.4 MG CAP PO SCH (19:30)
[2018-08-05] MEDS: BISOPROLOL FUMARATE 10 MG TAB PO SCH (20:42)
[2018-08-06] VITALS: BP 113/60
[2018-08-06 04:00] VITALS: BP 122/66
[2018-08-06] MEDS: LEVOTHYROXINE 50MCG TABLET (0.05MG) PO SCH (05:12)
[2018-08-06] MEDS: SLF 3 ML SYR IV SCH ×3 (05:12→21:47)
[2018-08-06 05:42] LABS: HEMATOCRIT 32.5 % (36.0-47.0); HEMOGLOBIN 10.5 g/dl (12.0-15.5); MEAN CORPUSCULAR HEMOGLOBIN 28.5 pg (27.0-33.0); MEAN CORPUSCULAR HGB CONC 32.3 g/dl (32.0-36.5); MEAN CORPUSCULAR VOLUME 88.1 fl (80.0-96.0); PLATELET COUNT, AUTOMATED 240 10^3/uL (150-450); RED BLOOD COUNT 3.69 10^6/uL (4.00-5.40); WHITE BLOOD COUNT 14.9 10^3/uL (4.0-10.0)
[2018-08-06 06:04] LABS: BLOOD UREA NITROGEN 12 MG/DL (7-18); CALCIUM LEVEL 7.8 MG/DL (8.8-10.2); CARBON DIOXIDE LEVEL 35 MEQ/L (21-32); CHLORIDE LEVEL 94 MEQ/L (98-107); CREATININE FOR GFR 0.76 MG/DL (0.55-1.30); GLOMERULAR FILTRATION RATE > 60.0 (>39); GLUCOSE, FASTING 71 MG/DL (70-100); POTASSIUM SERUM 3.6 MEQ/L (3.5-5.1); SODIUM LEVEL 132 MEQ/L (136-145)
[2018-08-06] MEDS: TIOTROPIUM INHALER/CAPSULE (SPIRIVA) INH SCH (07:14)
[2018-08-06] MEDS: HumaLOG INSULIN (NovoLOG) PER UNIT SC SCH ×4 (07:30→19:50)
[2018-08-06 08:00] VITALS: BP 106/56
[2018-08-06] MEDS: BISOPROLOL FUMARATE 10 MG TAB PO SCH (09:00)
[2018-08-06] MEDS: LEVEMIR (INSULIN DETEMIR) 1 UNITS/0.01ML SC SCH ×2 (09:25→19:50)
[2018-08-06] MEDS: VENLAFAXINE 37.5 MG TAB PO SCH ×2 (09:25→19:49)
[2018-08-06] MEDS: CEFDINIR 300 MG CAP (OMNICEF) PO SCH ×2 (09:26→19:49)
[2018-08-06] MEDS: predniSONE 10 MG TAB PO SCH (09:26)
[2018-08-06] MEDS: DIGOXIN 0.25 MG TAB PO SCH (09:27)
[2018-08-06] MEDS: FEXOFENADINE 60 MG TAB PO SCH (09:27)
[2018-08-06] MEDS: OCUVITE 1 TAB PO SCH ×2 (09:28→19:49)
[2018-08-06] MEDS: DULoxetine 30 MG CAP (CYMBALTA) PO SCH (09:28)
[2018-08-06] MEDS: ASPIRIN 81 MG ENTERIC TAB PO SCH (09:28)
[2018-08-06] MEDS: OMEPRAZOLE 20 MG CAP PO SCH (09:28)
[2018-08-06] MEDS: FENOFIBRATE 145 MG TAB (TRICOR) PO SCH (09:28)
[2018-08-06] MEDS: APIXABAN 5 MG TAB (ELIQUIS) PO SCH ×2 (09:28→19:50)
[2018-08-06] MEDS: FAMOTIDINE 20 MG TAB PO SCH (09:28)
[2018-08-06] MEDS: MEMANTINE 5MG TABLET (NAMENDA) PO SCH (09:28)
[2018-08-06] MEDS: MAGNESIUM OXIDE 400 MG TAB (MAG-OX) PO SCH ×3 (09:29→19:49)
[2018-08-06] MEDS: GABAPENTIN 300 MG CAP PO SCH ×4 (09:29→19:48)
[2018-08-06 12:00] VITALS: BP 122/70
[2018-08-06 16:00] VITALS: BP 129/71
--- NOTE | 2018-08-06 17:13 | IPNPDOC ---
Subjective Date Seen The patient was seen on 08/06/18. Subjective Chief Complaint/HPI Feels well. No CP, SOB or lightheadedness Constitutional: Denies: Chills, Fever Pulmonary: Denies: Dyspnea, Cough Cardiovascular: Denies: Chest Pain, Palpitations Gastrointestinal: Denies: Nausea, Vomiting, Abdominal Pain, Diarrhea, Constipation Objective Physical Examination General Exam: Positive: Alert, No Acute Distress Chest Exam: Positive: Clear to auscultation; Negative: Rales, Rhonchi, Wheezing Heart Exam: Positive: Rate Normal, Irregular Rhythm Telemetry: Positive: Atrial fibrillation (140s) Abdomen Exam: Positive: Normal bowel sounds, Soft; Negative: Tenderness Extremity Exam: Negative: Edema Neuro Exam: Positive: Normal Speech Psych Exam: Positive: Mood NL Assessment /Plan Problems (1) Atrial flutter Status: Acute Problem Text: 08/06 - BP better after IVF Bolus and holding Bisoprolol and Verapamil, Losartan and LAsix HR better with Dig restarted yesterday Cont Eliquis PLan for d/c in am if rate remains controlled. 08/05 - Hypotensive this am BP 90/40, HR 140s. (Asymptomatic). Has been diuresing large amounts and has become hyponatremic, hypovolemic clinically on Lasix 80 daily. I have stopped the Lasix and Losartan this am and will Give 500 cc IVF Bolus to improve BP/Volume status and see if HR responds. Hold Bisoprolol and Verapamil for now as well until BP improves. Dr. Muñoz aware of above and plans to check HR and BP later ths morning to decide doses of Bisoprolol and Verapamil. 4/2 increased HR as dig has worn off-attempt to dw Cards re plan on biso 7.5, verap 120 TID, loaded c dig 0.25 IV x 3 (last dose 08/02) - Not on Digoxin daily - defer to Cardiology (2) Tachycardia Status: Acute Problem Text: See Above 08/01- Patient was seen by Dr. Roberts. She received 4 doses of .25 digoxin overnight and was started on verapamil, bisoprolol, and eliquis. She continues to be tachycardic in the 140's but intermittently it will slow down and you can better appreciate a 2:1 or 3:1 AV block consistent with atrial flutter. CHADVASc score of 5, patient has been started on Eliquis for prevention of thrombus formation. Patient continues to be asymptomatic. Cardiology recommendations appreciated, will continue with current plan at this time. (3) Pneumonia Status: Acute Problem Text: 08/06 - D4 cefdinir (prior 4D ceftr/azithro) (4) COPD exacerbation Status: Acute Response to Treatment: Improving Problem Text: 08/04 - Decrease prednisone further to 30 mg daily On 2L NC at baseline Cont Spiriva Normally on Advair at home - should be restarted on d/c Not needing prn bronchodilators 08/02 -- continues to improve, transitioned to PO steroids 08/01- Patient was switched to 40 mg IV BID from TID, will likely transition her to PO steroids tomorrow as I still appreciate wheezes in her lung jacome. 07/31-Cont IV Solumedrol - Has prn nebs ordered, but has only been given this once in ER Normally on Advair and Spiriva Restart Spiriva Chronic COPD on 2L NC at baseline - follows with Dr. Daley in Office - frequent exacerbations requiring steroids and abx over last few months (5) Nicotine dependence Status: Chronic Problem Text: Has been without cigarettes this entire hospitalization without need for Nicotine replacement - I encouraged her to try to remain Cigarette free when she goes home - She agrees (6) CKD stage 3 due to type 2 diabetes mellitus Status: Chronic Response to Treatment: Stable Problem Text: 08/01-Patient's GFR is >60 with normal BUN/Cr, likely not CKD. (7) IDDM (insulin dependent diabetes mellitus) Status: Chronic Response to Treatment: Stable Problem Text: 08/05 - Levemir 60/44 with SSI coverage. Blood sugars in 200s - 300. Tapering prednisone should help some. May need increased Levemir dose depending on trend over next couple of days 08/04 - BS variable on 08/03 glu this AMA 153, monitor. 07/31- Getting half dose of her usual Lantus (pm dose on hold) cont SSI - adjust long acting insulin as needed (8) HTN (hypertension) Status: Chronic Response to Treatment: Stable (9) Systolic CHF, chronic Permanent Comment: EF 35% per Echo 2017 Last Edited By: PRESLEY Mendez on Jul 31, 2018 10:48 Status: Chronic Response to Treatment: Stable Problem Text: 08/04 - See above - D/C Lasix and Losartan today due to hy potension/hyponatremia/dehydration 08/03 - Compensated On Lasix 80 q am irasema Becker 08/01-Holding AM dose of lasix as patients SBP is in the 90's and she is not showing signs of volume overload, will continue tomorrow. (10) DARSHAN on CPAP Status: Chronic Problem Text: non-compliant with CPAP (11) Dementia Status: Chronic Response to Treatment: Stable Problem Text: 08/02 -- cardiology stopped Aricept due to risk of heart block when combined with Verap and BB. She was switched her to Namenda 07/31-mild - on Aricept - at Baseline today (12) Physical deconditioning Status: Acute Problem Text: 08/03 wants to dc home-lives alone in [place]-check HSE, at HD 2L [place] O2 Plan/VTE VTE Prophylaxis Ordered?: Yes (Start Lovenox today) Plan Therapy: PT Advance Directives: DNR (Jaimee completed MOLST 07/31/18 DNR/DNI) VS, I&O, 24H, Fishbone Vital Signs/I&O Vital Signs Date Time Temp Pulse Resp B/P (MAP) Pulse Ox O2 Delivery O2 Flow Rate FiO2 08/06/18 16:00 97.3 89 16 129/71 (90) 99 2.0 I&O- Last 24 Hours up to 6 AM 08/06/18 06:00 Intake Total 8780 ml Output Total 6920 ml Balance 1860 ml Laboratory Data 24H LABS Laboratory Tests 2 08/05/18 19:28: Bedside Glucose (Misc Panel) 258H 08/06/18 04:16: Nucleated Red Blood Cells % (auto) 0.0, Anion Gap 3L, Glomerular Filtration Rate > 60.0, Blood Urea Nitrogen 12, Creatinine 0.76, Sodium Level 132L, Potassium Level 3.6, Chloride Level 94L, Carbon Dioxide Level 35H, Calcium Level 7.8L 08/06/18 11:24: Bedside Glucose (Misc Panel) 129H 08/06/18 16:45: Bedside Glucose (Misc Panel) 242H CBC/BMP Laboratory Tests 08/06/18 04:16 Red Blood Count 3.69 L, Mean Corpuscular Volume 88.1, Mean Corpuscular He moglobin 28.5, Mean Corpuscular Hemoglobin Concent 32.3, Red Cell Distribution Width 14.1, Calcium Level 7.8 L Microbiology Microbiology 07/30/18 Blood Culture - Final, Complete NO GROWTH AFTER 5 DAYS 07/30/18 Blood Culture - Final, Complete NO GROWTH AFTER 5 DAYS DANA LANZA PA-C Aug 06, 2018 17:13
[2018-08-06] MEDS: traZODone 50 MG TAB PO SCH (19:49)
[2018-08-06] MEDS: tiZANidine 4 MG TAB PO SCH (19:49)
[2018-08-06] MEDS: ATORVASTATIN 20 MG TAB PO SCH (19:49)
[2018-08-06] MEDS: TAMSULOSIN 0.4 MG CAP PO SCH (19:50)
[2018-08-06] MEDS: ALLOPURINOL 100 MG TAB PO SCH (19:50)
[2018-08-07] VITALS: BP 125/81
[2018-08-07 04:00] VITALS: BP 111/56
[2018-08-07 05:33] LABS: HEMATOCRIT 34.9 % (36.0-47.0); HEMOGLOBIN 11.1 g/dl (12.0-15.5); MEAN CORPUSCULAR HEMOGLOBIN 28.7 pg (27.0-33.0); MEAN CORPUSCULAR HGB CONC 31.8 g/dl (32.0-36.5); MEAN CORPUSCULAR VOLUME 90.2 fl (80.0-96.0); PLATELET COUNT, AUTOMATED 246 10^3/uL (150-450); RED BLOOD COUNT 3.87 10^6/uL (4.00-5.40); WHITE BLOOD COUNT 15.1 10^3/uL (4.0-10.0)
[2018-08-07 05:57] LABS: BLOOD UREA NITROGEN 11 MG/DL (7-18); CALCIUM LEVEL 7.9 MG/DL (8.8-10.2); CARBON DIOXIDE LEVEL 36 MEQ/L (21-32); CHLORIDE LEVEL 95 MEQ/L (98-107); CREATININE FOR GFR 0.71 MG/DL (0.55-1.30); GLOMERULAR FILTRATION RATE > 60.0 (>39); GLUCOSE, FASTING 72 MG/DL (70-100); POTASSIUM SERUM 3.8 MEQ/L (3.5-5.1); SODIUM LEVEL 134 MEQ/L (136-145)
[2018-08-07] MEDS: SLF 3 ML SYR IV SCH ×3 (06:00→21:24)
[2018-08-07] MEDS: LEVOTHYROXINE 50MCG TABLET (0.05MG) PO SCH (06:11)
[2018-08-07] MEDS: HumaLOG INSULIN (NovoLOG) PER UNIT SC SCH ×4 (07:30→21:22)
[2018-08-07] MEDS: TIOTROPIUM INHALER/CAPSULE (SPIRIVA) INH SCH (07:38)
[2018-08-07 08:00] VITALS: BP 103/59
[2018-08-07] MEDS: VENLAFAXINE 37.5 MG TAB PO SCH ×2 (08:28→21:22)
[2018-08-07] MEDS: DIGOXIN 0.25 MG TAB PO SCH (08:29)
[2018-08-07] MEDS: APIXABAN 5 MG TAB (ELIQUIS) PO SCH ×2 (08:29→21:24)
[2018-08-07] MEDS: GABAPENTIN 300 MG CAP PO SCH ×4 (08:29→21:23)
[2018-08-07] MEDS: ASPIRIN 81 MG ENTERIC TAB PO SCH (08:29)
[2018-08-07] MEDS: predniSONE 10 MG TAB PO SCH (08:29)
[2018-08-07] MEDS: MEMANTINE 5MG TABLET (NAMENDA) PO SCH (08:29)
[2018-08-07] MEDS: BISOPROLOL FUMARATE 10 MG TAB PO SCH ×3 (08:30→10:46)
[2018-08-07] MEDS: FEXOFENADINE 60 MG TAB PO SCH (08:30)
[2018-08-07] MEDS: OCUVITE 1 TAB PO SCH ×2 (08:30→21:23)
[2018-08-07] MEDS: FENOFIBRATE 145 MG TAB (TRICOR) PO SCH (08:30)
[2018-08-07] MEDS: LEVEMIR (INSULIN DETEMIR) 1 UNITS/0.01ML SC SCH ×2 (08:31→21:22)
[2018-08-07] MEDS: DULoxetine 30 MG CAP (CYMBALTA) PO SCH (08:32)
[2018-08-07] MEDS: CEFDINIR 300 MG CAP (OMNICEF) PO SCH ×2 (08:32→21:23)
[2018-08-07] MEDS: OMEPRAZOLE 20 MG CAP PO SCH (08:32)
[2018-08-07] MEDS: FAMOTIDINE 20 MG TAB PO SCH (08:32)
[2018-08-07] MEDS: MAGNESIUM OXIDE 400 MG TAB (MAG-OX) PO SCH ×3 (08:32→21:23)
[2018-08-07 12:00] VITALS: BP 134/63
[2018-08-07 12:52] LABS: DIGOXIN LEVEL 1.1 NG/ML (0.5-2.0)
--- NOTE | 2018-08-07 16:55 | IPNPDOC ---
Subjective Date Seen The patient was seen on 08/07/18. Subjective Chief Complaint/HPI Stable MS, dyspnea at baseline Constitutional: Denies: Chills Eyes: Denies: Pain ENT: Denies: Head Aches Skin: Denies: Rash Pulmonary: Denies: Dyspnea Cardiovascular: Denies: Chest Pain, Palpitations Gastrointestinal: Denies: Nausea Objective Physical Examination General Exam: Positive: Alert (bright, alert sitting up in chair comfortable, speaking full sentences without dyspnea), No Acute Distress Chest Exam: Positive: Wheezing; Negative: Normal air movement, Rales, Rhonchi Heart Exam: Positive: Tachycardic; Negative: Murmurs Telemetry: Positive: Atrial fibrillation (140s) Abdomen Exam: Positive: Normal bowel sounds, Soft; Negative: Tenderness Extremity Exam: Negative: Edema Neuro Exam: Positive: Normal Speech Psych Exam: Positive: Mood NL Assessment /Plan Problems (1) Atrial flutter Status: Acute Problem Text: fair rate control on biso 10, loaded c dig 0.25 po x 3 08/05, then 0.25 QD plan dc on biso 5 BID 08/07 dig 1.1 (2) Tachycardia Status: Acute Problem Text: as per AF (3) Pneumonia Status: Acute Problem Text: 08/06 - D5 cefdinir (prior 4D ceftr/azithro) (4) COPD exacerbation Status: Acute Response to Treatment: Improving Problem Text: 08/04 - Decrease prednisone further to 30 mg daily On 2L NC at baseline Cont Spiriva Normally on Advair at home - should be restarted on d/c Not needing prn bronchodilators 08/02 -- continues to improve, transitioned to PO steroids 08/01- Patient was switched to 40 mg IV BID from TID, will likely transition her to PO steroids tomorrow as I still appreciate wheezes in her lung jacome. 07/31-Cont IV Solumedrol - Has prn nebs ordered, but has only been given this once in ER Normally on Advair and Spiriva Restart Spiriva Chronic COPD on 2L NC at baseline - follows with Dr. Daley in Office - frequent exacerbations requiring steroids and abx over last few months (5) Nicotine dependence Status: Chronic Problem Text: Has been without cigarettes this entire hospitalization without need for Nicotine replacement - I encouraged her to try to remain Cigarette free when she goes home - She agrees (6) CKD stage 3 due to type 2 diabetes mellitus Status: Chronic Response to Treatment: Stable Problem Text: 08/01-Patient's GFR is >60 with normal BUN/Cr, likely not CKD. (7) IDDM (insulin dependent diabetes mellitus) Status: Chronic Response to Treatment: Stable Problem Text: 08/05 - Levemir 60/44 with SSI coverage. Blood sugars in 200s - 300. Tapering prednisone should help some. May need increased Levemir dose depending on trend over next couple of days 08/04 - BS variable on 08/03 glu this AMA 153, monitor. 07/31- Getting half dose of her usual Lantus (pm dose on hold) cont SSI - adjust long acting insulin as needed (8) HTN (hypertension) Status: Chronic Response to Treatment: Stable Problem Text: stable on regimen as per AF (9) Systolic CHF, chronic Permanent Comment: EF 35% per Echo 2017 Last Edited By: PRESLEY Mendez on Jul 31, 2018 10:48 Status: Chronic Response to Treatment: Stable Problem Text: HD fur 80/40, los 25, metol 2.5 qW 08/07 restarted fur 40 QD (10) DARSHAN on CPAP Status: Chronic Problem Text: non-compliant with CPAP (11) Dementia Status: Chronic Response to Treatment: Stable Problem Text: 08/02 -- cardiology stopped Aricept due to risk of heart block when combined with Verap and BB and switched her to Namenda 5 QD plan to dc off given no real indication to use at this point (12) Physical deconditioning Status: Acute Problem Text: 08/07 safe to dc home Plan/VTE VTE Prophylaxis Ordered?: Yes (Start Lovenox today) Plan Therapy: PT Advance Directives: DNR (Jaimee completed MOLST 07/31/18 DNR/DNI) VS, I&O, 24H, Fishbone Vital Signs/I&O Vital Signs Date Time Temp Pulse Resp B/P (MAP) Pulse Ox O2 Delivery O2 Flow Rate FiO2 08/07/18 16:00 2.0 08/07/18 12:00 97.0 94 17 134/63 (86) 100 I&O- Last 24 Hours up to 6 AM 08/07/18 06:00 Intake Total 7020 ml Output Total 6700 ml Balance 320 ml Laboratory Data 24H LABS Laboratory Tests 2 08/06/18 16:45: Bedside Glucose (Misc Panel) 242H 08/06/18 19:47: Bedside Glucose (Misc Panel) 284H 08/07/18 05:06: Nucleated Red Blood Cells % (auto) 0.0, Anion Gap 3L, Glomerular Filtration Rate > 60.0, Blood Urea Nitrogen 11, Creatinine 0.71, Sodium Level 134L, Potassium Level 3.8, Chloride Level 95L, Carbon Dioxide Level 36H, Calcium Level 7.9L, Digoxin Level 1.1 08/07/18 10:22: Bedside Glucose (Misc Panel) 231H 08/07/18 11:46: Bedside Glucose (Misc Panel) 182H 08/07/18 16:39: Bedside Glucose (Misc Panel) 290H CBC/BMP Laboratory Tests 08/07/18 05:06 Red Blood Count 3.87 L, Mean Corpuscular Volume 90.2, Mean Corpuscular Hemoglobin 28.7, Mean Corpuscular Hemoglobin Concent 31.8 L, Red Cell Distribution Width 14.2, Calcium Level 7.9 L Microbiology Microbiology 07/30/18 Blood Culture - Final, Complete NO GROWTH AFTER 5 DAYS 07/30/18 Blood Culture - Final, Complete NO GROWTH AFTER 5 DAYS Teja Franklin M.D. Aug 07, 2018 16:55
[2018-08-07] MEDS ORDERED: POTASSIUM CHLORIDE 10 MEQ SR TABLET PO ONE (17:00)
[2018-08-07 19:47] VITALS: BP 149/84
[2018-08-07] MEDS: TAMSULOSIN 0.4 MG CAP PO SCH (21:23)
[2018-08-07] MEDS: tiZANidine 4 MG TAB PO SCH (21:23)
[2018-08-07] MEDS: ATORVASTATIN 20 MG TAB PO SCH (21:23)
[2018-08-07] MEDS: traZODone 50 MG TAB PO SCH (21:23)
[2018-08-07] MEDS: ALLOPURINOL 100 MG TAB PO SCH (21:23)
[2018-08-07 23:59] VITALS: BP_SYST 140; BP_SYST 144; BP_DIAS 70
[2018-08-08 04:00] VITALS: BP 114/62
[2018-08-08 04:46] LABS: HEMATOCRIT 32.7 % (36.0-47.0); HEMOGLOBIN 10.5 g/dl (12.0-15.5); MEAN CORPUSCULAR HEMOGLOBIN 28.8 pg (27.0-33.0); MEAN CORPUSCULAR HGB CONC 32.1 g/dl (32.0-36.5); MEAN CORPUSCULAR VOLUME 89.6 fl (80.0-96.0); PLATELET COUNT, AUTOMATED 223 10^3/uL (150-450); RED BLOOD COUNT 3.65 10^6/uL (4.00-5.40)
[2018-08-08 05:11] LABS: BLOOD UREA NITROGEN 10 MG/DL (7-18); CALCIUM LEVEL 7.7 MG/DL (8.8-10.2); CARBON DIOXIDE LEVEL 34 MEQ/L (21-32); CHLORIDE LEVEL 97 MEQ/L (98-107); CREATININE FOR GFR 0.77 MG/DL (0.55-1.30); GLOMERULAR FILTRATION RATE > 60.0 (>39); GLUCOSE, FASTING 194 MG/DL (70-100); NT-PRO BNP 1909 PG/ML (<125); POTASSIUM SERUM 4.2 MEQ/L (3.5-5.1); SODIUM LEVEL 133 MEQ/L (136-145)
[2018-08-08] MEDS: LEVOTHYROXINE 50MCG TABLET (0.05MG) PO SCH (05:11)
[2018-08-08] MEDS: SLF 3 ML SYR IV SCH (05:12)
[2018-08-08] MEDS: TIOTROPIUM INHALER/CAPSULE (SPIRIVA) INH SCH (07:33)
[2018-08-08] MEDS: HumaLOG INSULIN (NovoLOG) PER UNIT SC SCH ×2 (07:54→12:29)
[2018-08-08 08:00] VITALS: BP 129/68
[2018-08-08] MEDS ORDERED: FUROSEMIDE 40 MG TAB PO SCH (09:00)
[2018-08-08] MEDS: CEFDINIR 300 MG CAP (OMNICEF) PO SCH (09:39)
[2018-08-08] MEDS: MEMANTINE 5MG TABLET (NAMENDA) PO SCH (09:39)
[2018-08-08] MEDS: predniSONE 10 MG TAB PO SCH (09:39)
[2018-08-08] MEDS: MAGNESIUM OXIDE 400 MG TAB (MAG-OX) PO SCH (09:39)
[2018-08-08] MEDS: FAMOTIDINE 20 MG TAB PO SCH (09:39)
[2018-08-08] MEDS: FENOFIBRATE 145 MG TAB (TRICOR) PO SCH (09:40)
[2018-08-08] MEDS: OMEPRAZOLE 20 MG CAP PO SCH (09:40)
[2018-08-08] MEDS: OCUVITE 1 TAB PO SCH (09:40)
[2018-08-08] MEDS: GABAPENTIN 300 MG CAP PO SCH ×2 (09:40→12:28)
[2018-08-08] MEDS: APIXABAN 5 MG TAB (ELIQUIS) PO SCH (09:40)
[2018-08-08] MEDS: VENLAFAXINE 37.5 MG TAB PO SCH (09:40)
[2018-08-08] MEDS: FEXOFENADINE 60 MG TAB PO SCH (09:40)
[2018-08-08 09:41] VITALS: BP 129/68
[2018-08-08] MEDS: DULoxetine 30 MG CAP (CYMBALTA) PO SCH (09:41)
[2018-08-08] MEDS: BISOPROLOL FUMARATE 10 MG TAB PO SCH (09:41)
[2018-08-08] MEDS: DIGOXIN 0.25 MG TAB PO SCH (09:42)
[2018-08-08] MEDS: ASPIRIN 81 MG ENTERIC TAB PO SCH (09:42)
[2018-08-08] MEDS: LEVEMIR (INSULIN DETEMIR) 1 UNITS/0.01ML SC SCH (09:42)
[2018-08-08 12:00] VITALS: BP 125/57
[2018-08-08] MEDS ORDERED: FURO40TA2 PO (12:14)
[2018-08-08] MEDS ORDERED: DIGO0.25 PO (12:14)
[2018-08-08] MEDS ORDERED: ELIQ5TAB PO (12:14)
[2018-08-08] MEDS ORDERED: BISO10TA13 PO (12:14)
--- NOTE | 2018-08-09 07:44 | DSES ---
DATE OF ADMISSION: 07/30/2018 DATE OF DISCHARGE: 08/08/2018 DISCHARGE DIAGNOSES: New onset atrial flutter/atrial fibrillation with rapid ventricular response (RVR). Acute on chronic diastolic heart failure. Chronic obstructive pulmonary disease (COPD) exacerbation +/- left lower lobe pneumonia. Diabetes mellitus type 2, insulin dependent. Hypertension. Obstructive sleep apnea (DARSHAN). Noncompliant with CPAP therapy. Dementia, moderate. Deconditioning. Chronic kidney disease, stage III. Patient was hospitalized for acute dyspnea and was treated initially for precipitous exacerbation +/- pneumonia with IV Solu-Medrol and IV ceftriaxone, azithromycin, then she developed atrial fibrillation/atrial flutter with RVR. Because of this was placed on apixaban. Attempts to control heart rate were complicated by the fact that she became hypotensive with dual bisoprolol and verapamil therapy, therefore, she was loaded with digoxin and was able to maintain rate control with resting heart rates mainly 90 to 100 on bisoprolol 10 at bedtime and digoxin 0.25 daily. Her digoxin level on 08/07/2018 was 1.1. Patient passed a safety evaluation the day before discharge. Given her hypotension her furosemide and losartan were held during her admission. Prior to discharge she was noted to have increased peripheral edema and probably up 5 pounds from her baseline, therefore the day before discharge she was restarted on furosemide 40 by mouth daily and put out 1.4 liters. Therefore, I am discharging her on furosemide 40 daily with her previous dose of potassium 10 three times a day and magnesium oxide 800 three times a day and recommended to follow a no-added salt 1500 mL fluid restriction with daily a.m. dry weight measurements. Her prednisone was tapered down to 10 daily on discharge. To continue her home COPD regimen. She had completed 10 days total of antibiotics, therefore, this was discontinued. Her donepezil was held during her admission because of concern for 2:1 heart block and was switched to memantine which given her current level of dementia was probably not effective, therefore, she was not discharged on this either. She was instructed to followup with her primary care provider on Friday to Thursday 08/10 or 08/11/2018 and call doctor personnel security assistant if there are any concerns.
== END 2018-08-08 14:29 | disposition home or self-care (01) | DRG 190 ==
LOC: M ED 12:03 → M ED INP 15:13 → M MSPAV 16:49 → M ICU 07-31 12:58 → M PCU 08-01 17:11
PROVIDERS: ADMIT Internal Medicine; ATTEND Family Medicine
DX: J44.1 Chronic obstructive pulmonary disease with (acute) exacerbation (principal); I50.33 Acute on chronic diastolic (congestive) heart failure; J18.9 Pneumonia, unspecified organism; I13.0 Hypertensive heart and chronic kidney disease with heart failure and stage 1 through stage 4 chronic kidney disease, or unspecified chronic kidney disease; I48.92 Unspecified atrial flutter; I48.91 Unspecified atrial fibrillation; N18.3 Chronic kidney disease, stage 3 (moderate); F03.90 Unspecified dementia, unspecified severity, without behavioral disturbance, psychotic disturbance, mood disturbance, and anxiety; G47.33 Obstructive sleep apnea (adult) (pediatric); Z91.19 Patient's noncompliance with other medical treatment and regimen; E11.9 Type 2 diabetes mellitus without complications; Z79.4 Long term (current) use of insulin; Z99.81 Dependence on supplemental oxygen; M10.9 Gout, unspecified; G30.9 Alzheimer's disease, unspecified; F02.80 Dementia in other diseases classified elsewhere, unspecified severity, without behavioral disturbance, psychotic disturbance, mood disturbance, and anxiety; E78.5 Hyperlipidemia, unspecified; F32.9 Major depressive disorder, single episode, unspecified; F17.200 Nicotine dependence, unspecified, uncomplicated; Z88.0 Allergy status to penicillin; Z79.82 Long term (current) use of aspirin; Z79.899 Other long term (current) drug therapy; K21.9 Gastro-esophageal reflux disease without esophagitis; E66.9 Obesity, unspecified; M54.5 Low back pain; E03.9 Hypothyroidism, unspecified; Z68.38 Body mass index [BMI] 38.0-38.9, adult; I95.9 Hypotension, unspecified

== ENCOUNTER → 2018-08-18 | Outpatient (CLI) | payer MEDICARE, MEDICAID ==
[~2018-08-18] MED LIST changes: +ALBU83IN INH; -ALLE10TA2 PO; -AMMO12CR4 TOP; +AMMO12CR7 TOP; +ASPI-1 PO; -ASPI1TAB PO; -ASPI325T PO; +ASPI81TA26 PO; +BISO10TA13 PO; +CALC1TAB26 PO; +DOCU100C16 PO; +DONETAB5 PO; +DOXY100C PO; +ELIQ5TAB PO; +FERR325T3 PO; +FISH7.5C PO; +FLOM0.4C39 PO; +LORA-753 PO; +LOSA25TA14 PO; +MIRA3350 PO; +TIZA4TAB4 PO; +[UNRECOGNIZED DRUG - CODE] PO; -[UNRECOGNIZED DRUG - CODE] PO
--- NOTE | 2018-09-03 00:42 | ECWPNPC ---
PATIENT NAME: PINEDA VALDERRAMA : 1945 GENDER: FEMALE VISIT DATE: 08/18/2018 DISCHARGE DATE: 08/18/18 1127 VISIT LOCKED DATE TIME: PHYSICIAN: HUGO BENNETT RESOURCE: HUGO BENNETT REASON FOR APPOINTMENT 1. BACK, 3 MONTHS HISTORY OF PRESENT ILLNESS HISTORY OF PRESENT ILLNESS: HERE FOR F/U OF CHRONIC LOW BACK PAIN.USING PERCOCET 5/325 Q6H PRN WHICH IS HELPFUL.DESCRIBES PAIN CONSTANT AND ACHING.PAIN RADIATES INTO BOTH LEGS.PAIN IS AGGREVATED BY STANDING TO DO DISHES OR SWEEPING.PAIN RELIEVED SOMEWHAT WITH HEAT AND RECLINING.RATING PAIN VAS 9/10. PAIN THE PATIENT DESCRIBES THE PAIN... THE PATIENT DESCRIBES THE PAIN... THE PATIENT DESCRIBES THE PAIN... THE PATIENT DESCRIBES THE PAIN... THE PATIENT DESCRIBES THE PAIN... THE PATIENT DESCRIBES THE PAIN... THE PATIENT DESCRIBES THE PAIN... THE PATIENT DESCRIBES THE PAIN... PAIN THE PATIENT DESCRIBES THE PAIN... THE PATIENT DESCRIBES THE PAIN... THE PATIENT DESCRIBES THE PAIN... THE PATIENT DESCRIBES THE PAIN... THE PATIENT DESCRIBES THE PAIN... THE PATIENT DESCRIBES THE PAIN... THE PATIENT DESCRIBES THE PAIN... THE PATIENT DESCRIBES THE PAIN... FALL RISK SCREENING: SCREENING :NO FALLS REPORTED IN THE LAST YEAR CURRENT MEDICATIONS TAKING ALBUTEROL SULFATE (2.5 MG/3ML) 0.083% NEBULIZATION SOLUTION 2.5 MG INHALATION EVERY 4 HOURS NEEDED FOR SOB TAKING UNDERGARMENT - MISCELLANEOUS DIRECTED FOUR TIMES DAILY NEEDED TAKING UNDERGARMENT - MISCELLANEOUS DIRECTED DX: R 15.9, R 15.2 STOOL INCONTINENCE DURING BOWLE PREP FOR COLONOSCOPY FOUR TIMES A DAY AND NEEDED TAKING FREESTYLE LITE TEST - STRIP DIRECTED DX:E11.9 IN VITRO FOUR TIMES DAILY TAKING FUROSEMIDE 40 MG TABLET 1 TABLET ORALLY DAILY TAKING ELIQUIS 5 MG TABLET 1 TAB ORALLY TWICE DAILY TAKING BISOPROLOL FUMARATE 10 MG TABLET 1 TABLET ORALLY BID TAKING DIGOXIN 250 MCG TABLET 1 TABLET ORALLY ONCE A DAY TAKING PROAIR HFA 108 (90 BASE) MCG/ACT AEROSOL SOLUTION 2 PUFFS NEEDED INHALATION EVERY 4 HOURS NEEDED TAKING CHOLECALCIFEROL 400 UNIT CAPSULE 1 CAPSULE ORALLY ONCE A DAY TAKING TIZANIDINE HCL 4 MG TABLET 1 TABLET ORALLY BEFORE BEDTIME TAKING TAMSULOSIN HCL 0.4 MG CAPSULE 1 CAPSULE ORALLY ONCE A DAY TAKING PREDNISONE 10 MG TABLET 1 TABLET ORALLY ONCE A DAY TAKING COLACE 100 MG CAPSULE 1 CAPSULE ORALLY TWICE A DAY NEEDED FOR CONSTIPATION, NOTES: DUPLICATE TAKING LANTUS SOLOSTAR 100 UNIT/ML SOLUTION PEN-INJECTOR 60 UNITS IN AM, 44 UNITS IN PM SUBCUTANEOUS DIRECTED TAKING DICYCLOMINE HCL 20 MG TABLET 1 TABLET ORALLY THREE TIMES A DAY TAKING BETA CAROTENE 85490 UNIT CAPSULE 1 CAPSULE ORALLY ONCE A DAY TAKING FEXOFENADINE HCL 180 MG TABLET 1 TABLET ORALLY ONCE A DAY TAKING ICAPS CAPSULE 1 CAP(S) ORALLY TWICE A DAY TAKING METOLAZONE 2.5 MG TABLET 1 TABLET ORALLY WEEKLY TAKING RANITIDINE HCL 150 MG TABLET ORALLY DAILY TAKING ASPIRIN 81 MG TABLET CHEWABLE 1 TABLET ORALLY ONCE A DAY TAKING TRAZODONE HCL 150 MG TABLET 1 TABLET AT BEDTIME ORALLY ONCE A DAY TAKING MIRALAX - POWDER 1 SCOOP MIXED IN 8 OZ WATER ORALLY DIRECTED TAKING VENLAFAXINE HCL 150 MG TABLET 1 TABLET WITH FOOD ORALLY TWICE A DAY TAKING MAGNESIUM 400 MG CAPSULE 2 TAB(S) ORALLY TID TAKING GABAPENTIN 300 MG CAPSULE 1 CAPSULE ORALLY FOUR TIMES DAILY, NOTES: PAIN CLINIC TAKING HUMALOG KWIKPEN 100 UNIT/ML SOLUTION PEN-INJECTOR DIRECTED SUBCUTANEOUS THREE TIMES A SHAUN PER SLIDING SCALE MDD 60 UNITS TAKING LEVOTHYROXINE SODIUM 50 MCG TABLET 1 TAB(S) ORALLY DAILY TAKING SPIRIVA HANDIHALER 18 MCG CAPSULE 1 CAPSULE INHALATION ONCE A DAY TAKING ADVAIR DISKUS 500-50 MCG/DOSE AEROSOL POWDER BREATH ACTIVATED 1 PUFF INHALATION TWICE A DAY TAKING LANCETS - MISCELLANEOUS DIRECTED KYE RAMOS DX CODE: E11.12 TAKING CYMBALTA 30 MG CAPSULE DELAYED RELEASE PARTICLES 1 CAPSULE ORALLY ONCE A DAY TAKING OMEPRAZOLE 40 MG CAPSULE DELAYED RELEASE 1 CAPSULE ORALLY ONCE A DAY TAKING FERROUS SULFATE 325 (65 FE) MG TABLET 1 TABLET ORALLY ONCE A DAY TAKING ALLOPURINOL 100 MG TABLET 1 TABLET ORALLY ONCE A DAY TAKING CALCIUM-VITAMIN D 600-400 MG-UNIT TABLET 1 TABLET WITH A MEAL ORALLY ONCE A DAY TAKING ATORVASTATIN CALCIUM 40 MG TABLET 1 TABLET ORALLY ONCE A DAY TAKING POTASSIUM CHLORIDE 10 MEQ ER TABLET EXTENDED RELEASE 3 ORALLY TID TAKING OXYCODONE-ACETAMINOPHEN 5-325 MG TABLET 1 TABLET NEEDED ORALLY EVERY 6 HRS PRN MDD4 TAKING ELÍAS MULTI WOMEN TABLET EXTENDED RELEASE ORALLY DAILY TAKING FLONASE 50 MCG/DOSE SPRAY 2 SPRAY IN EACH NOSTRIL NASALLY TWICE A DAY MEDICATION LIST REVIEWED AND RECONCILED WITH THE PATIENT PAST MEDICAL HISTORY DIABETES MELLITUS TYPE 2 - INSULIN REQUIRING NICOTINE DEP - SMOKER COPD - ON CHRONIC OXYGEN 2LNC - FOLLOWED BY DR. LORD OBSTRUCTIVE SLEEP APNEA - ON CPAP (NON-COMPLIANT) - FOLLOWED BY DR. LORD MODERATELY DIFFERENTIATED ADENOCARCINOMA RIGHT LUNG - S/P RIGHT LOBECTOMY BY DR. 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 PYLORI, COLONOSCOPY - HEMORRHOIDS, COLON BIOPSIES NORMAL 01/2018 FAMILY HISTORY NO FAMILY HISTORY DOCUMENTED. SOCIAL HISTORY GENERAL: TOBACCO USE ARE YOU A:CURRENT SMOKER ARE YOU INTERESTED IN QUITTING?NOT READY TO QUIT DOES NOT PLAN TO EVER QUIT COUNSELED THE PATIENT ON SMOKING EFFECTS, EDUCATION [id number]/16/2019 HOW MANY CIGARETTES A DAY DO YOU SMOKE?11-20 HOW SOON AFTER YOU WAKE UP DO YOU SMOKE YOUR FIRST CIGARETTE?6-30 MIN HOW OFTEN DO YOU SMOKE CIGARETTES?EVERY DAY PATIENT COUNSELED ON THE DANGERS OF TOBACCO USE AND URGED TO QUIT:08/18/2018 LATEX QUESTIONNAIRE LATEX ALLERGY : HAVE YOU EVER DEVELOPED ANY TYPE OF REACTION AFTER HANDLING LATEX PRODUCTS SUCH RUBBER GLOVES, CONDOMS, DIAPHRAGMS, BALLOONS, SOCKS, OR UNDERWEAR?NO LATEX ALLERGY : HAVE YOU EVER DEVELOPED ANY TYPE OF REACTION DURING OR AFTER DENTAL APPOINTMENT, VAGINAL/RECTAL EXAMINATION, SURGICAL PROCEDURE, OR ANY OTHER EXPOSURE?NO LATEX RISK : HAVE YOU EVER HAD ANY DIFFICULTY BREATHING OR HIVES AFTER EATING OR HANDLING ANY FRUITS, OR VEGETABLES; SUCH KIWI, BANANAS, STONE FRUITS, OR CHESTNUTSNO LATEX RISK : DO YOU HAVE A PREVIOUS PERSONAL HISTORY OF MORE THAN NINE SURGERIES, SPINA BIFIDA, OR REPEATED CATHERTIZATIONS? NO LATEX RISK : ARE YOU FREQUENTLY EXPOSED TO LATEX PRODUCTS IN YOUR OCCUPATION?NO DATE ASKED : 08/18/2018 LUNG CANCER SCREENING SMOKING STATUS:CURRENT SMOKER BMI CARE GOAL FOLLOW-UP ABOVE NORMAL BMI FOLLOW-UPDIETARY MANAGEMENT EDUCATION, GUIDANCE, AND COUNSELING ALCOHOL SCREENING DID YOU HAVE A DRINK CONTAINING ALCOHOL IN THE PAST YEAR?YES HOW OFTEN DID YOU HAVE SIX OR MORE DRINKS ON ONE OCCASION IN THE PAST YEAR?NEVER (0 POINTS) HOW MANY DRINKS DID YOU HAVE ON A TYPICAL DAY WHEN YOU WERE DRINKING IN THE PAST YEAR?1 OR 2 (0 POINTS) HOW OFTEN DID YOU HAVE A DRINK CONTAINING ALCOHOL IN THE PAST YEAR?MONTHLY OR LESS (1 POINT) POINTS1 INTERPRETATIONNEGATIVE RECREATIONAL DRUG USE DRUG USE?NO CAFFEINE CAFFEINE USE?YES 1 POT OF COFFEE DAILY SEXUAL HX HAD SEX IN THE LAST 12 MONTHS (VAGINAL, ORAL, OR ANAL)?NO LMP:HYSTER HAVE YOU EVER HAD AN STD?NO EPISCOPALIAN [id number] [employer] LANGUAGE LANGUAGES SPOKEN:[place] EDUCATION LEVEL OF EDUCATION:HIGH SCHOOL GED LEARNING BARRIERS / SPECIAL NEEDS CHANGE FROM LAST VISIT?NO BARRIERS TO LEARNING?NO HEARING IMPAIRED?NO VISION IMPAIRED?YES :CORRECTIVE LENSES COGNITIVELY IMPAIRED?NO READINESS TO LEARN?YES LEARNING PREFERENCES?NO LEARNING CAPABILITIES PRESENT?YES EMOTIONAL BARRIERS?NO SPECIAL DEVICES?YES :CANE, 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 PAIN CLINIC PFS, CLERGY, PUBLIC HEALTH REFERRALS PFS REFERRAL NEEDED?NO CLERGY REFERRAL NEEDED?NO PUBLIC HEALTH REFERRAL NEEDED?NO HAS THE PATIENT BEEN EDUCATED REGARDING HIS/HER PLAN OF CARE?YES HAS THE PATIENT BEEN EDUCATED REGARDING PAIN, THE RISK FOR PAIN, THE IMPORTANCE OF EFFECTIVE PAIN MANAGEMENT, AND THE PAIN ASSESSMENT PROCESS?YES ADVANCE DIRECTIVE ADVANCE DIRECTIVE DISCUSSED WITH PATIENT:YES 08/18/18 STATES SHE HAS A HCP:[facility] [phone] HOSPITALIZATION/MAJOR DIAGNOSTIC PROCEDURE SURGERIES PNEUMONIA 09/2017 REVIEW OF SYSTEMS REVIEWED BY: PROVIDER: HUGO VALENTIN . CONSTITUTIONAL: ANY CHANGE IN YOUR MEDICAL CONDITION? NO . CHILLS NO . FEVER NO . INFECTION: DO YOU HAVE NEW INFECTIONS? NO . DO YOU HAVE HISTORY OF MRSA? NO . MUSCULOSKELETAL: ANY NEW PATTERNS OF PAIN OR NUMBNESS? NO . GASTROENTEROLOGY: ANY NEW CHANGE IN BOWEL CONTROL? NO . GENITOURINARY: ANY NEW CHANGE IN BLADDER CONTROL? NO . IS THERE A CHANCE YOU COULD BE ? NO . HEMATOLOGY/LYMPH: DO YOU TAKE ANY BLOOD THINNERS? (FOR EXAMPLE- COUMADIN, PLAVIX, AGGRENOX, PLATEL, PRADAXA, OR XARELTO) NO . WHEN WAS YOUR LAST DOSE? DATE: TIME: . NEUROLOGY: HAVE YOU FALLEN IN THE PAST 12 MONTHS? NO . ANY NEW EXTREMITY NUMBNESS OR WEAKNESS? YES, LEGS START SHAKING AND SHE FEELS LIKE SHE IS GOING TO FALL--HAS BEEN GOING ON FOR APPROX 1 MONTH . CARDIOLOGY: DO YOU HAVE A PACEMAKER OR DEFIBRILLATOR? NO . RESPIRATORY: HAVE YOU BEEN SICK IN THE PAST WEEK? NO . FEVER NO . FLU LIKE SYMPTOMS? NO . COUGH NO . INTEGUMENTARY: DO YOU HAVE ANY RASHES OR OPEN SORES? NO . ALLERGIC/IMMUNO: ARE YOU ALLERGIC TO IV DYE? NO . ANY NEW ALLERGIES? NO . PSYCHIATRIC: DO YOU HAVE THOUGHTS OF HURTING YOURSELF OR SOMEONE ELSE? NO . ARE YOU ABUSED, NEGLECTED, OR IN AN UNSAFE ENVIRONMENT? NO . ENDOCRINOLOGY: ARE YOU DIABETIC? YES, FABS THIS A.M. 123 . OTHER: DO YOU NEED ANY PRESCRIPTIONS? NO . IF YES, PLEASE LIST: ____ . ANY NEW PROBLEMS WITH YOUR MEDICATIONS? NO . WHEN DID YOU LAST EAT? ____ . WHEN DID YOU LAST DRINK? ____ . WHAT DID YOU LAST DRINK? ____ . NAME OF PERSON DRIVING YOU HOME? ____ . DO YOU HAVE ANY OTHER QUESTIONS OR CONCERNS NO . VITAL SIGNS WT 241.8 LBS, HT 64 1/2", BMI 40.86 INDEX, BP 117/60 MM HG, HR 109 /MIN, RR 18 /MIN, TEMP 97.0 F, OXYGEN SAT % 94%, SAFE IN ENV? (Y/N) Y, NA INITIALS SC 10:36, REVIEWED BY: SIMBA. EXAMINATION GENERAL EXAMINATION: GENERAL APPEARANCE: AWAKE,ALERT ,PLEAASANT . PSYCH AFFECT NORMAL . LUNGS: LUNG GALVEZ ARE CLEAR TO AUSCULTATION BILATERALLY. GOOD MOVEMENT OF AIR . HEART:SLIGHTLY IRREGULAR,NORMAL RATE. ASSESSMENTS POST LAMINECTOMY SYNDROME - M96.1 (PRIMARY) TREATMENT POST LAMINECTOMY SYNDROME REFILL OXYCODONE-ACETAMINOPHEN TABLET, 5-325 MG, 1 TABLET NEEDED, ORALLY, EVERY 6 HRS PRN MDD4, 30 DAY(S), 120, REFILLS 0 NOTES: ISTOP REGISTRY REVIEWED AND DEMONSTRATES COMPLLIANCE. (REF # [id number] ) BRINGS IN MEDICATIONS WHICH IS APPROPRIATE FOR WHAT WAS DISPENSED. RECENT URINE TOXICOLOGY REVIEWED. NO UNAUTHORIZED MEDICATIONS. NO ILLICIT SUBSTANCES AND PRESCRIBED MEDICATIONS WERE PRESENT. URINE TOX TODAY /NARCOTIC AGREEMENT UPDATE, RISKS AND BENEFITS OF NARCOTIC/OPIOD MEDICATIONS WERE REVIEWED WITH PATIENT - THIS INCLUDES BUT IS NOT LIMITED TO RISK OF DEPENDANCE/DEVELOPMENT OF ADDICTION, MOOD DISTURBANCE AND DEPRESSION, OSTEOPOROSIS, HORMONAL AND LABIDAL CHANGES, RESPIRATORY DEPRESSION AND . PATIENT IS ADVISED NOT TO DRIVE OR DRINK ALCOHOL WHILE ON THESE MEDICATIONS. PROCEDURE CODES FA211 ESTABILISHED PATIENT [facility] CHARGE DISPOSITION & COMMUNICATION FOLLOW UP 3 MONTHS ELECTRONICALLY SIGNED BY HOMERO REVELES ON 09/01/2018 AT 08:42 AM EDT DISCLAIMER : THIS IS A VISIT SUMMARY EXTRACTED FROM THE [employer] CHART. IT IS NOT A COPY OF THE [employer] PROGRESS NOTE. WILMARD
== END ==
LOC: M PAIN 10:15
PROVIDERS: ATTEND Nurse Practitioner Family
DX: M96.1 Postlaminectomy syndrome, not elsewhere classified (principal); E11.22 Type 2 diabetes mellitus with diabetic chronic kidney disease; J44.9 Chronic obstructive pulmonary disease, unspecified; G47.33 Obstructive sleep apnea (adult) (pediatric); E78.5 Hyperlipidemia, unspecified; E03.9 Hypothyroidism, unspecified; I12.9 Hypertensive chronic kidney disease with stage 1 through stage 4 chronic kidney disease, or unspecified chronic kidney disease; N18.3 Chronic kidney disease, stage 3 (moderate); F32.9 Major depressive disorder, single episode, unspecified; F17.210 Nicotine dependence, cigarettes, uncomplicated; Z79.4 Long term (current) use of insulin; Z79.82 Long term (current) use of aspirin; Z79.899 Other long term (current) drug therapy; E66.01 Morbid (severe) obesity due to excess calories; Z68.41 Body mass index [BMI] 40.0-44.9, adult; Z88.0 Allergy status to penicillin; Z86.79 Personal history of other diseases of the circulatory system; Z87.39 Personal history of other diseases of the musculoskeletal system and connective tissue

== ENCOUNTER → 2018-09-17 | Outpatient (REF) | payer MEDICARE, MEDICAID ==
[2018-09-17 20:55] LABS: CALCIUM LEVEL 9.1 MG/DL (8.8-10.2); GLOMERULAR FILTRATION RATE 57.9 (>39); POTASSIUM SERUM 4.5 MEQ/L (3.5-5.1)
== END ==
LOC: M SFHCADAM 14:06
PROVIDERS: ATTEND Physician Assistant
DX: I50.32 Chronic diastolic (congestive) heart failure (principal)

== ENCOUNTER 2018-09-20 23:42 | Inpatient (IN) | payer MEDICARE, MEDICAID ==
[~2018-09-20] VITALS: Ht 157.5 cm; Wt 111.1 kg
[2018-09-21] VITALS (9 sets, daily range): BP systolic 99–136; BP diastolic 55–73
[2018-09-21] MEDS ORDERED: NS 1,000 ML IV ONE (00:15)
[2018-09-21 00:32] LABS: BASO # 0.1 10^3/uL (0.0-0.2); BASO % 0.8 % (0.0-1.0); EOS # 0.2 10^3/uL (0.0-0.50); EOS % 1.4 % (0.0-3.0); HEMATOCRIT 41.1 % (36.0-47.0); HEMOGLOBIN 12.6 g/dl (12.0-15.5); LYMPH # 1.5 10^3/uL (1.5-4.5); LYMPH % 9.9 % (24.0-44.0); MEAN CORPUSCULAR HEMOGLOBIN 27.3 pg (27.0-33.0); MEAN CORPUSCULAR HGB CONC 30.7 g/dl (32.0-36.5); MONO # 1.3 10^3/uL (0.0-0.8); MONO % 8.5 % (0.0-5.0); NEUTROPHILS # 12.2 10^3/uL (1.8-7.7); NEUTROPHILS % 78.2 % (36.0-66.0); PLATELET COUNT, AUTOMATED 330 10^3/uL (150-450); RED BLOOD COUNT 4.62 10^6/uL (4.00-5.40); WHITE BLOOD COUNT 15.5 10^3/uL (4.0-10.0)
[2018-09-21 00:36] LABS: INR 1.77; PROTHROMBIN TIME 20.9 SECONDS (12.1-14.4)
[2018-09-21 00:37] LABS: PARTIAL THROMBOPLASTIN TIME 39.5 SECONDS (25.4-37.6)
[2018-09-21 01:17] LABS: BLOOD UREA NITROGEN 20 MG/DL (7-18); CALCIUM LEVEL 8.1 MG/DL (8.8-10.2); CARBON DIOXIDE LEVEL 28 MEQ/L (21-32); CHLORIDE LEVEL 95 MEQ/L (98-107); CK-MB VALUE MASS < 1.0 NG/ML (<3.6); CPK CREATINE PHOSPHOKINASE 50 U/L (26-192); CREATININE FOR GFR 2.25 MG/DL (0.55-1.30); DIGOXIN LEVEL 3.9 NG/ML (0.5-2.0); GLOMERULAR FILTRATION RATE 22.7 (>39); GLUCOSE, FASTING 300 MG/DL (70-100); NT-PRO BNP 430 PG/ML (<125); POTASSIUM SERUM 7.8 MEQ/L (3.5-5.1); SODIUM LEVEL 130 MEQ/L (136-145); TROPONIN I < 0.02 NG/ML (< 0.10)
[2018-09-21] MEDS ORDERED: DIGOXIN IMMUNE FAB (OVINE) 40MG VIAL (J1162) IV ONE (01:30)
[2018-09-21] MEDS ORDERED: NS 3,270 ML in APPROPRIATE DILUENT 1 EA IV ONE (01:30)
[2018-09-21] MEDS ORDERED: PATIROMER SORBITEX CALCIUM 8.4 GM POWDER PACKET (VELTASSA) PO ONE ×2 (01:45→05:00)
[2018-09-21] MEDS ORDERED: CALCIUM CHLORIDE 10% 1 GM in D5W 100 ML IV ONE (01:45)
[2018-09-21] MEDS ORDERED: BISO5TAB5 PO (01:48)
[2018-09-21] MEDS ORDERED: FURO40TA2 PO (01:48)
[2018-09-21] MEDS ORDERED: KP F1200 PO (01:48)
[2018-09-21] MEDS ORDERED: DIGO0.25 PO (01:48)
[2018-09-21] MEDS ORDERED: ELIQ5TAB PO (01:48)
[2018-09-21] MEDS ORDERED: CVS400CA PO (01:48)
--- NOTE | 2018-09-21 02:06 | REPVR ---
EXAM: CT Head Without Contrast EXAM DATE/TIME: 09/21/2018 1:47 AM CLINICAL HISTORY: 73 years old, female; Signs and symptoms; Altered mental status/memory loss; Confusion or disorientation; Additional info: AMS TECHNIQUE: Imaging protocol: Axial computed tomography images of the head without contrast. Radiation optimization: All CT scans at this facility use at least one of these dose optimization techniques: automated exposure control; mA and/or kV adjustment per patient size (includes targeted exams where dose is matched to clinical indication); or iterative reconstruction. COMPARISON: CT Head without contrast 03/16/2015 5:36 PM FINDINGS: Brain: No intracranial mass, mass effect or midline shift. No acute intracranial hemorrhage. No CT evidence of acute cortical infarct. Ventricles: Ventricles, cisterns, and sulci are normal in size for age. Bones/joints: No calvarial fracture or destructive process. Sinuses: Imaged paranasal sinuses are clear. Mastoid air cells: Mastoid air cells are normally aerated. Orbits: Imaged orbits are unremarkable. Soft tissues: No focal extracranial soft tissue swelling. IMPRESSION: No acute or concerning focal intracranial abnormality. Electronically signed by: Cal Salazar On 09/21/2018 02:05:35 AM
--- NOTE | 2018-09-21 02:08 | REPVR ---
EXAM: CT Abdomen and Pelvis Without Contrast EXAM DATE/TIME: 09/21/2018 1:47 AM CLINICAL HISTORY: 73 years old, female; Condition or disease; Kidney or ureter condition; Chronic kidney disease or failure; Ckd stage 3 (moderate); Additional info: AMS, renal dysfunction TECHNIQUE: Imaging protocol: Axial computed tomography images of the abdomen and pelvis without contrast. Coronal and sagittal reformatted images were created and reviewed. Radiation optimization: All CT scans at this facility use at least one of these dose optimization techniques: automated exposure control; mA and/or kV adjustment per patient size (includes targeted exams where dose is matched to clinical indication); or iterative reconstruction. COMPARISON: CT ABD/PEL W/IV CONTRAST ONLY 11/22/2017 3:14 AM FINDINGS: Lungs: Bilateral basilar fibrosis and atelectasis is present. Multiple old right rib fractures are present as well. ABDOMEN: Liver: Noncontrast liver shows no obvious lesion although diffusely enlarged. Gallbladder and bile ducts: Gallbladder is surgically absent. Pancreas: Noncontrast pancreas shows no obvious mass or adjacent fluid. Spleen: Noncontrast spleen shows no obvious focal deformity. Adrenals: Adrenal glands are normal in appearance. Kidneys and ureters: Kidneys are unremarkable aside from a right renal 2.4 cm cyst with simple fluid density. Stomach and bowel: No evidence of small bowel obstruction. There may be focal stranding around the hepatic flexure of the colon. Diverticular changes are present within the colon without inflammation. Appendix: Appendix is not visualized. PELVIS: Bladder: Bladder appears normal. Reproductive: Unremarkable as visualized. ABDOMEN and PELVIS: Intraperitoneal space: No pneumoperitoneum. Bones/joints: Degenerative changes are seen in the lumbar spine with disc height loss, endplate osteophytes and hypertrophic facet arthropathy. Soft tissues: Exam is limited due to patient body habitus and resultant poor resolution. Vasculature: Atherosclerotic change present in the aorta, without aneurysm. Lymph nodes: No enlarged lymph nodes. No enlarged lymph nodes. Other findings: Limited evaluation without enteric or IV contrast. IMPRESSION: 1. Suggestion of stranding around the hepatic flexure colon, nonspecific but can be seen with focal colitis. Correlation with clinical picture is recommended in this regard, since the findings are not convincing. 2. Colonic diverticula changes without evidence of active inflammation. 3. Hepatomegaly Electronically signed by: Cal Salazar On 09/21/2018 02:08:38 AM
[2018-09-21] MEDS ORDERED: DEXTROSE 50% 50 ML SYRINGE IV STA (02:41)
[2018-09-21] MEDS ORDERED: HumuLIN R (REGULAR) INSULIN (NovoLIN R) **100U/ML** PER UNIT IV ONE (02:45)
[2018-09-21] MEDS ORDERED: CALCIUM GLUCONATE 1,000 MG in D5W MINI-BAG PLUS 100 ML IV ONE (03:15)
[2018-09-21] MEDS ORDERED: GLUCOSE 4 GM CHEW TABLET PO PRN (04:15)
[2018-09-21] MEDS ORDERED: MAALOX 30 ML SUSP *UDC PO PRN (04:15)
[2018-09-21] MEDS ORDERED: GLUCAGON FOR INJ 1 MG VIAL (J1610) SC PRN (04:15)
[2018-09-21] MEDS ORDERED: ACETAMINOPHEN TAB 650MG DOSE (2X325MG) PO PRN (04:15)
[2018-09-21] MEDS ORDERED: MOM 30ML SUSPENSION UDC PO PRN (04:15)
[2018-09-21] MEDS ORDERED: DEXTROSE 50% 50 ML SYRINGE IV PRN (04:15)
--- NOTE | 2018-09-21 04:30 | HPEPDOC ---
General Date of Admission September 21, 2018 at 04:02 Chief Complaint The patient is a 73-year-old female admitted with a reason for visit of Digoxin Toxicity,Hyperkalemia. Source: Patient, RN/, Old records History of Present Illness Ms. Caal is a 73 years old woman with hx/o Dementia and AF on Dig. Pt is a poor historian. She says she was weak and fell, and denies any injury or pain. Reportedly, she had a syncopal episode at home. On arrival to ER, pt was lethargic, but arousable and confused. During my visit, pt was alert, following all commands, and able to describe her living condition. Pt was recently admitted a little over a month ago for new AF with RVR, COPD exacerbation, Pneumonia and acute on chronic diastolic CHF. She is on Eliquis and Digoxin among other cardiac meds. She also takes Lasix and high dose K supplement (30 mEq TID). In the ER, pt noted to have HR between 30 and 40/min. K 7.8; Dig level 3.9. CXR, Head CT and Abd/Pelv CT are unremarkable except for the report of questionable focal colitis; pt has no abdominal pain. BP is good. There are no clinical signs of volume overload. Pt denies chest pain, SOB, or dizziness. During my visit, monitor was showing AF with VR of 40, whih pt was tolerating fine. Pt was treated with Digibind 400 mg and K-lowering agents in the ER. Home Medications Scheduled Allopurinol (Allopurinol) 100 Mg Tab, 100 MG PO QHS, (Reported) Apixaban (Eliquis) 5 Mg Tablet, 5 MG PO BID, (Reported) Aspirin (Aspirin EC) 81 Mg Tab, 81 MG PO DAILY, (Reported) Atorvastatin Calcium (Atorvastatin Calcium) 40 Mg Tab, 40 MG PO QHS, (Reported) Bisoprolol Fumarate (Bisoprolol Fumarate) 5 Mg Tablet, 5 MG PO BID, (Reported) Calcium Carbonate/Vitamin D3 (Calcium 600-Vit D3 800 Tablet) 1 Tab Tab, 1 TAB PO DAILY, (Reported) Cholecalciferol (Vitamin D3) (Vitamin D3) 400 Unit Capsule, 400 UNIT PO DAILY, (Reported) Dicyclomine HCl (Dicyclomine HCl) 20 Mg Tab, 20 MG PO TID, (Reported) Digoxin (Digoxin) 250 Mcg Tablet, 250 MCG PO DAILY, (Reported) Duloxetine Hcl (Duloxetine HCl) 30 Mg Cap, 30 MG PO DAILY, (Reported) TAKES AT NOON Ferrous Sulfate (Ferrous Sulfate) 325 Mg Tab, 325 MG PO DAILY, (Reported) Fish Oil/Dha/Epa (Fish Oil 1,200 mg Fish Oil) 1 Each Capsule, 1 CAP PO BID, (Reported) Furosemide (Furosemide) 40 Mg Tablet, 40 MG PO DAILY, (Reported) Gabapentin (Gabapentin) 300 Mg Cap, 300 MG PO QID, (Reported) Insulin Glargine,Hum.rec.anlog (Lantus Solostar) 100 Unit/Ml Inj, 44 UNITS SC QHS, (Reported) Insulin Glargine,Hum.rec.anlog (Lantus Solostar) 100 Unit/Ml Inj, 60 UNITS SC QAM, (Reported) Insulin Human Lispro (Humalog) 1 Units/0.01 Ml Inj, 0 SC ACHS, (Reported) PER SLIDING SCALE Levothyroxine Sodium (Synthroid) 50 Mcg Tab, 50 MCG PO DAILY, (Reported) Magnesium Oxide (Magnesium Oxide) 400 Mg Tab, 800 MG PO TID, (Reported) Omeprazole (Omeprazole) 40 Mg Cap, 40 MG PO DAILY, (Reported) Potassium Chloride (Potassium Chloride) 10 Meq Tab, 30 MEQ PO TID, (Reported) Ranitidine Hcl (Ranitidine HCl) 150 Mg Tab, 1 TAB PO DAILY, (Reported) Salmeterol/Fluticasone (Advair 500-50 Diskus) 28 Puff/Inhaler Aerp, 1 PUFF INH DAILY, (Reported) Tamsulosin HCl (Flomax) 0.4 Mg Cap, 0.4 MG PO QHS, (Reported) Tiotropium [place] (Spiriva) 18 Mcg Cap, 1 INH INH DAILY, (Reported) Tizanidine HCl (Tizanidine HCl) 4 Mg Tab, 4 MG PO QHS, (Reported) Trazodone HCl (Trazodone HCl) 100 Mg Tab, 150 MG PO QHS, (Reported) Venlafaxine HCl (Venlafaxine HCl) 75 Mg Tab, 150 MG PO BID, (Reported) Vit A/Vit C/Vit E/Zinc/Copper (Preservision Areds Softgel) 1 Cap Cap, 1 CAP PO BID, (Reported) Scheduled PRN Albuterol Sulf (Albuterol Sulfate) 2.5 Mg/3 Ml Nebu, 2.5 MG INH Q4H PRN for SHORTNESS OF BREATH, (Reported) Albuterol Sulfate (Proair Hfa) 108 Mcg/Act Aer, 2 PUFFS INH Q4H PRN for SHORTNESS OF BREATH, (Reported) Docusate Sodium (Docusate Sodium) 100 Mg Cap, 100 MG PO BID PRN for CONSTIPATION, (Reported) Fexofenadine HCl (Fexofenadine HCl) 180 Mg Tab, 180 MG PO DAILY PRN for NASAL CONGESTION, (Reported) Oxycodone HCl/Acetaminophen (Oxycodone-Acetaminophen 5-325) 1 Tab Tab, 1 TAB PO TID PRN for PAIN, (Reported) Polyethylene Glycol 3350 (Miralax) 1 Pow Pow, 17 GM PO DAILY PRN for CONSTIPATION, (Reported) Allergies Coded Allergies: Penicillins (Verified Allergy, Unknown, 07/30/18) Past Medical History Medical History 1. Hypertension. 2. Chronic kidney disease (CKD) III. 3. History of chronic systolic heart failure, EF of 35%. 4. Hyperlipidemia. 5. Oxygen-dependent COPD, requiring 2 liters nasal cannula. 6. DARSHAN, on CPAP. 7. Hypotension. 8. Gout. 9. Depression. 10. Chronic active tobacco use. 11. Insulin-dependent Diabetes. 12. Alzheimer's disease. Surgical History RUL Lobectomy, Cholecystectomy, Appendectomy, Laminectomy Family History Significant Family History: No pertinent family hx Social History * Smoker: current smoker Alcohol: Denies Drugs: denies A-FIB/CHADSVASC A-FIB History Current/History of A-Fib/PAF?: Yes Current Oral Anticoagulant The: Yes Review of Systems Constitutional: Denies: Chills, Fever ENT: Denies: Head Aches, Ear Pain Skin: Denies: Rash, Lesions Pulmonary: Denies: Dyspnea, Cough Cardiovascular: Denies: Chest Pain Gastrointestinal: Denies: Nausea, Vomiting, Abdominal Pain, Diarrhea Genitourinary: Denies: Dysuria Musculoskeletal: Denies: Neck Pain, Back Pain Neurological: Denies: Weakness Psych: Reports: Mood Normal; Denies: Anxiety Physical Examination General Exam: Positive: Alert, Cooperative, No Acute Distress Eye Exam: Positive: PERRLA ENT Exam: Positive: Atraumatic Neck Exam: Positive: Supple; Negative: JVD Chest Exam: Positive: Clear to auscultation, Normal air movement Heart Exam: Positive: Bradycardic, Irregular Rhythm Abdomen Exam: Positive: Normal bowel sounds, Soft; Negative: Tenderness Extremity Exam: Positive: Normal pulses; Negative: Edema Skin Exam: Negative: Rash, Breakdown Neuro Exam: Positive: Normal Speech, Strength at 5/5 X4 ext Psych Exam: Positive: Mental status NL, Mood NL Vital Signs Vital Signs Date Time Temp Pulse Resp B/P (MAP) Pulse Ox O2 Delivery O2 Flow Rate FiO2 09/21/18 03:46 46 141/60 (87) 92 Nasal Cannula 3.0 09/21/18 02:31 20 09/21/18 00:31 97.9 Laboratory Data Labs 24H Laboratory Tests 2 09/21/18 00:06: Immature Granulocyte % (Auto) 1.2, White Blood Count 15.5H, Red Blood Count 4.62, Hemoglobin 12.6, Hematocrit 41.1, Mean Corpuscular Volume 89.0, Mean Corpuscular Hemoglobin 27.3, Mean Corpuscular Hemoglobin Concent 30.7L, Red Cell Distribution Width 16.1H, Platelet Count 330, Neutrophils (%) (Auto) 78.2H, Lymphocytes (%) (Auto) 9.9L, Monocytes (%) (Auto) 8.5H, Eosinophils (%) (Auto) 1.4, Basophils (%) (Auto) 0.8, Neutrophils # (Auto) 12.2H, Lymphocytes # (Auto) 1.5, Monocytes # (Auto) 1.3H, Eosinophils # (Auto) 0.2, Basophils # (Auto) 0.1, Nucleated Red Blood Cells % (auto) 0.0, Prothrombin Time 20.9H, Prothromb Time International Ratio 1.77, Activated Partial Thromboplast Time 39.5H, Anion Gap 7L, Glomerular Filtration Rate 22.7L, Blood Urea Nitrogen 20H, Creatinine 2.25H, Sodium Level 130L, Potassium Level 7.8*H, Chloride Level 95L, Carbon Dioxide Level 28, Calcium Level 8.1L, Total Creatine Kinase 50, Creatine Kinase MB < 1.0, Creatine Kinase MB Relative Index 2.00, Troponin I < 0.02, CM-Qct-M-Type Natriuretic Peptide 430H, Digoxin Level 3.9*H 09/21/18 00:25: POC Glucose (Misc Panel) 302H, POC Sodium (Misc Panel) 127L, POC Potassium (Misc Panel) 7.7*H, POC Chloride (Misc Panel) 92L, POC Total CO2 (Misc Panel) 27.0, POC Blood Urea Nitrogen (Misc Panel 21, POC Ionized Calcium (Misc Panel) 4.2L, POC Creatinine (Misc Panel) 2.1H, POC Hematocrit (Misc Panel) 41.0 09/21/18 00:36: POC Glucose (Misc Panel) 296H, POC Sodium (Misc Panel) 127L, POC Potassium (Misc Panel) 7.6*H, POC Chloride (Misc Panel) 93L, POC Total CO2 (Misc Panel) 28.0H, POC Blood Urea Nitrogen (Misc Panel 21, POC Ionized Calcium (Misc Panel) 4.1L, POC Creatinine (Misc Panel) 2.2H, POC Hematocrit (Misc Panel) 40.0 CBC/BMP Laboratory Tests 09/21/18 00:06 Red Blood Count 4.62, Mean Corpuscular Volume 89.0, Mean Corpuscular Hemoglobin 27.3, Mean Corpuscular Hemoglobin Concent 30.7 L, Red Cell Distribution Width 16.1 H, Neutrophils (%) (Auto) 78.2 H, Lymphocytes (%) (Auto) 9.9 L, Monocytes (%) (Auto) 8.5 H, Eosinophils (%) (Auto) 1.4, Basophils (%) (Auto) 0.8, Neutrophils # (Auto) 12.2 H, Lymphocytes # (Auto) 1.5, Monocytes # (Auto) 1.3 H, Eosinophils # (Auto) 0.2, Basophils # (Auto) 0.1, Calcium Level 8.1 L, Total Creatine Kinase 50 Assessment/Plan Syncope due to Bradycardia related to Digoxin toxicity and Hyperkalemia - Admit to ICU - Hold Digoxin, K supplement and any agents that cause bradycardia or hyperkalemia. - Serial labs to check levels; additional Veltas as needed AF - Continue Eliquis IDDM - Home dose Insulin and SSI Plan / VTE VTE Prophylaxis Ordered?: No VTE Exclusion Mechanical Proph: Other VTE Exclusion Pharmacological: Other Plan Anticipated Discharge: Home With Services JACE KEMP MD September 21, 2018 04:30
[2018-09-21] MEDS ORDERED: PERCOCET 5MG/325MG TAB PO PRN (04:45)
[2018-09-21] MEDS ORDERED: DOCUSATE SODIUM 100 MG CAP PO PRN (04:45)
[2018-09-21] MEDS ORDERED: ALBUTEROL SULFATE 2.5 MG/0.5 ML INH NEB SOLN INH PRN (04:45)
[2018-09-21 04:51] LABS: CREATININE FOR GFR 1.98 MG/DL (0.55-1.30); GLOMERULAR FILTRATION RATE 26.3 (>39); POTASSIUM SERUM 6.3 MEQ/L (3.5-5.1)
[2018-09-21] MEDS: NS 1,000 ML IV SCH ×2 (05:24→15:16)
[2018-09-21] MEDS: LEVOTHYROXINE 50MCG TABLET (0.05MG) PO SCH (06:37)
[2018-09-21] MEDS: HumaLOG INSULIN (NovoLOG) PER UNIT SC SCH ×4 (08:09→20:32)
[2018-09-21] MEDS: TIOTROPIUM INHALER/CAPSULE (SPIRIVA) INH SCH (08:42)
[2018-09-21] MEDS: ADVAIR HFA 230/21MCG INHALER INH SCH (08:42)
--- NOTE | 2018-09-21 09:06 | REP ---
PORTABLE CHEST: AP portable view of the chest is performed. COMPARISON: 07/30/2018 Diffuse interstitial fibrosis appears unchanged. No acute findings are seen. Patient is rotated toward the right. Cardiomediastinal silhouette is unchanged. There are multiple metallic clips in the right hilar region. Electronically Signed by Alfred Hughes MD 09/21/2018 06:38 P
[2018-09-21 09:18] LABS: BASO # 0.1 10^3/uL (0.0-0.2); BASO % 0.7 % (0.0-1.0); EOS # 0.2 10^3/uL (0.0-0.50); EOS % 1.4 % (0.0-3.0); HEMATOCRIT 37.7 % (36.0-47.0); HEMOGLOBIN 11.5 g/dl (12.0-15.5); LYMPH # 1.8 10^3/uL (1.5-4.5); LYMPH % 13.7 % (24.0-44.0); MEAN CORPUSCULAR HGB CONC 30.5 g/dl (32.0-36.5); MEAN CORPUSCULAR VOLUME 91.7 fl (80.0-96.0); MONO # 1.2 10^3/uL (0.0-0.8); MONO % 8.9 % (0.0-5.0); NEUTROPHILS # 9.9 10^3/uL (1.8-7.7); NEUTROPHILS % 74.4 % (36.0-66.0); PLATELET COUNT, AUTOMATED 257 10^3/uL (150-450); RED BLOOD COUNT 4.11 10^6/uL (4.00-5.40); WHITE BLOOD COUNT 13.3 10^3/uL (4.0-10.0)
[2018-09-21] MEDS: VENLAFAXINE 37.5 MG TAB PO SCH ×2 (09:28→20:26)
[2018-09-21] MEDS: FERROUS SULFATE 325MG TAB PO SCH (09:28)
[2018-09-21] MEDS: APIXABAN 5 MG TAB (ELIQUIS) PO SCH ×2 (09:28→20:26)
[2018-09-21] MEDS: OMEPRAZOLE 20 MG CAP PO SCH (09:30)
[2018-09-21] MEDS: ASPIRIN 81 MG ENTERIC TAB PO SCH (09:30)
[2018-09-21] MEDS: MAGNESIUM OXIDE 400 MG TAB (MAG-OX) PO SCH ×3 (09:30→20:26)
[2018-09-21] MEDS: GABAPENTIN 300 MG CAP PO SCH ×4 (09:30→20:26)
[2018-09-21] MEDS: LEVEMIR (INSULIN DETEMIR) 1 UNITS/0.01ML SC SCH ×2 (09:33→20:29)
--- NOTE | 2018-09-21 09:34 | IPNPDOC ---
Subjective Date Seen The patient was seen on 09/21/18. Subjective Chief Complaint/HPI Pt this morning states that she is feeling better, she feels weak. She denies SOB. She has a slight cough which is her baseline. Nursing relays that lab recommends holding off on rechecking Dig for at least 24 h. Constitutional: Denies: Chills, Fever ENT: Denies: Head Aches Pulmonary: Denies: Dyspnea, Cough Cardiovascular: Denies: Chest Pain, Palpitations, Lt Headedness Gastrointestinal: Denies: Nausea, Vomiting Neurological: Reports: Weakness Psych: Reports: Mood Normal Objective Physical Examination General Exam: Positive: Alert, Cooperative, No Acute Distress Eye Exam: Positive: PERRLA ENT Exam: Positive: Atraumatic Neck Exam: Positive: Supple; Negative: JVD Chest Exam: Positive: Clear to auscultation, Normal air movement Heart Exam: Positive: Bradycardic, Irregular Rhythm Abdomen Exam: Positive: Normal bowel sounds, Soft; Negative: Tenderness Extremity Exam: Positive: Normal pulses; Negative: Edema Skin Exam: Negative: Rash, Breakdown Neuro Exam: Positive: Normal Speech, Strength at 5/5 X4 ext Psych Exam: Positive: Mental status NL, Mood NL A-FIB/CHADSVASC A-FIB History Current/History of A-Fib/PAF?: Yes Current Oral Anticoagulant The: Yes Assessment /Plan Assessment 09/21 -- Seen with family at bedside. Though bradycardic, she is asymptomatic, and her pulse had improved to 50 when I saw her. She denied any complaints except loose stool, though family noted that she was tired. Agree with below, clinically improving. -- CDT Problems (1) Syncope and collapse Status: Acute Response to Treatment: Stable, Improving Discussed With: Patient Problem Specific Plan: Monitor Clinically Problem Text: likely d/t Dig toxicity and bradycardia. Dig is held, digibind has been administered, recheck Dig level tomorrow. Rate remain colette, pressures normotensive. PT ordered. (2) Digoxin toxicity Status: Acute Problem Specific Plan: Monitor Clinically Problem Text: see above (3) Bradycardia Status: Acute Problem Text: See above. (4) Hyperkalemia Status: Acute Problem Specific Plan: Monitor Clinically Problem Text: Labs pending this morning. (5) CKD stage 3 due to type 2 diabetes mellitus Status: Chronic Problem Text: Acute on chronic, Scr this AM remains pending. (6) MORBID (SEVERE) OBESITY DUE TO EXCESS CALORIES Status: Chronic Response to Treatment: Stable (7) Diastolic CHF Status: Chronic Response to Treatment: Stable Problem Specific Plan: Monitor Clinically (8) Physical deconditioning Status: Chronic Response to Treatment: Stable Problem Specific Plan: Monitor Clinically Problem Text: PT ordered (9) Dementia Status: Chronic Response to Treatment: Stable Plan/VTE VTE Prophylaxis Ordered?: Yes VTE Exclusion Mechanical Proph: Other VTE Exclusion Pharmacological: Other Plan Anticipated Discharge: Home With Services VS[facility]/I&O Vital Signs Date Time Temp Pulse Resp B/P (MAP) Pulse Ox O2 Delivery O2 Flow Rate FiO2 09/21/18 08:46 50 09/21/18 06:52 20 118/73 (88) 92 2.0 09/21/18 05:43 97.8 09/21/18 05:00 Nasal Cannula I&O- Last 24 Hours up to 6 AM 09/21/18 06:00 Intake Total 1038 ml Balance 1038 ml Laboratory Data 24H LABS Laboratory Tests 2 09/21/18 00:06: Immature Granulocyte % (Auto) 1.2, White Blood Count 15.5H, Red Blood Count 4.62, Hemoglobin 12.6, Hematocrit 41.1, Mean Corpuscular Volume 89.0, Mean Corpuscular Hemoglobin 27.3, Mean Corpuscular Hemoglobin Concent 30.7L, Red Cell Distribution Width 16.1H, Platelet Count 330, Neutrophils (%) (Auto) 78.2H, Lymphocytes (%) (Auto) 9.9L, Monocytes (%) (Auto) 8.5H, Eosinophils (%) (Auto) 1.4, Basophils (%) (Auto) 0.8, Neutrophils # (Auto) 12.2H, Lymphocytes # (Auto) 1.5, Monocytes # (Auto) 1.3H, Eosinophils # (Auto) 0.2, Basophils # (Auto) 0.1, Nucleated Red Blood Cells % (auto) 0.0, Prothrombin Time 20.9H, Prothromb Time International Ratio 1.77, Activated Partial Thromboplast Time 39.5H, Anion Gap 7L, Glomerular Filtration Rate 22.7L, Blood Urea Nitrogen 20H, Creatinine 2.25H, Sodium Level 130L, Potassium Level 7.8*H, Chloride Level 95L, Carbon Dioxide Level 28, Calcium Level 8.1L, Total Creatine Kinase 50, Creatine Kinase MB < 1.0, Creatine Kinase MB Relative Index 2.00, Troponin I < 0.02, DF-Btm-I-Type Natriuretic Peptide 430H, Digoxin Level 3.9*H 09/21/18 00:25: POC Glucose (Misc Panel) 302H, POC Sodium (Misc Panel) 127L, POC Potassium (Misc Panel) 7.7*H, POC Chloride (Misc Panel) 92L, POC Total CO2 (Misc Panel) 27.0, POC Blood Urea Nitrogen (Misc Panel 21, POC Ionized Calcium (Misc Panel) 4.2L, POC Creatinine (Misc Panel) 2.1H, POC Hematocrit (Misc Panel) 41.0 09/21/18 00:36: POC Glucose (Misc Panel) 296H, POC Sodium (Misc Panel) 127L, POC Potassium (Misc Panel) 7.6*H, POC Chloride (Misc Panel) 93L, POC Total CO2 (Misc Panel) 28.0H, POC Blood Urea Nitrogen (Misc Panel 21, POC Ionized Calcium (Misc Panel) 4.1L, POC Creatinine (Misc Panel) 2.2H, POC Hematocrit (Misc Panel) 40.0 09/21/18 04:20: Anion Gap 5L, Glomerular Filtration Rate 26.3L, Blood Urea Nitrogen 19H, Creatinine 1.98H, Sodium Level 129L, Potassium Level 6.3*H, Chloride Level 99, Carbon Dioxide Level 25, Calcium Level 9.0 09/21/18 08:53: 09/21/18 08:54: Immature Granulocyte % (Auto) 0.9, White Blood Count 13.3H, Red Blood Count 4.11, Hemoglobin 11.5L, Hematocrit 37.7, Mean Corpuscular Volume 91.7, Mean Corpuscular Hemoglobin 28.0, Mean Corpuscular Hemoglobin Concent 30.5L, Red Cell Distribution Width 15.9H, Platelet Count 257, Neutrophils (%) (Auto) 74.4H, Lymphocytes (%) (Auto) 13.7L, Monocytes (%) (Auto) 8.9H, Eosinophils (%) (Auto) 1.4, Basophils (%) (Auto) 0.7, Neutrophils # (Auto) 9.9H, Lymphocytes # (Auto) 1.8, Monocytes # (Auto) 1.2H, Eosinophils # (Auto) 0.2, Basophils # (Auto) 0.1, Nucleated Red Blood Cells % (auto) 0.0 CBC/BMP Laboratory Tests 09/21/18 00:06 Red Blood Count 4.62, Mean Corpuscular Volume 89.0, Mean Corpuscular Hemoglobin 27.3, Mean Corpuscular Hemoglobin Concent 30.7 L, Red Cell Distribution Width 16.1 H, Neutrophils (%) (Auto) 78.2 H, Lymphocytes (%) (Auto) 9.9 L, Monocytes (%) (Auto) 8.5 H, Eosinophils (%) (Auto) 1.4, Basophils (%) (Auto) 0.8, Neutrophils # (Auto) 12.2 H, Lymphocytes # (Auto) 1.5, Monocytes # (Auto) 1.3 H, Eosinophils # (Auto) 0.2, Basophils # (Auto) 0.1, Calcium Level 8.1 L, Total Creatine Kinase 50 09/21/18 04:20 Calcium Level 9.0 09/21/18 08:54 Red Blood Count 4.11, Mean Corpuscular Volume 91.7, Mean Corpuscular Hemoglobin 28.0, Mean Corpuscular Hemoglobin Concent 30.5 L, Red Cell Distribution Width 15.9 H, Neutrophils (%) (Auto) 74.4 H, Lymphocytes (%) (Auto) 13.7 L, Monocytes (%) (Auto) 8.9 H, Eosinophils (%) (Auto) 1.4, Basophils (%) (Auto) 0.7, Neutrophils # (Auto) 9.9 H, Lymphocytes # (Auto) 1.8, Monocytes # (Auto) 1.2 H, Eosinophils # (Auto) 0.2, Basophils # (Auto) 0.1 MEGHA MOREL PA-C September 21, 2018 09:34 KALYN ABBOTT DO September 21, 2018 17:52
[2018-09-21 10:09] LABS: ALBUMIN 2.7 GM/DL (3.2-5.2); BILIRUBIN,TOTAL 0.3 MG/DL (0.2-1.0); CALCIUM LEVEL 9.2 MG/DL (8.8-10.2); CREATININE FOR GFR 1.63 MG/DL (0.55-1.30); DIGOXIN LEVEL 0.3 NG/ML (0.5-2.0); GLOMERULAR FILTRATION RATE 32.9 (>39); TOTAL PROTEIN 5.8 GM/DL (6.4-8.2)
[2018-09-21] MEDS: DULoxetine 30 MG CAP (CYMBALTA) PO SCH (12:27)
[2018-09-21] MEDS: traZODone 50 MG TAB PO SCH (20:25)
[2018-09-21] MEDS: ATORVASTATIN 20 MG TAB PO SCH (20:25)
[2018-09-21] MEDS: TAMSULOSIN 0.4 MG CAP PO SCH (20:27)
[2018-09-21] MEDS: ALLOPURINOL 100 MG TAB PO SCH (20:27)
[2018-09-21] MEDS ORDERED: LEVEMIR (INSULIN DETEMIR) 1 UNITS/0.01ML SC SCH (21:00)
--- NOTE | 2018-09-21 23:32 | ECGEPIP ---
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
[2018-09-22] VITALS: BP 98/54
[2018-09-22 04:00] VITALS: BP 125/98
[2018-09-22 04:57] LABS: BASO # 0.1 10^3/uL (0.0-0.2); BASO % 0.5 % (0.0-1.0); EOS # 0.4 10^3/uL (0.0-0.50); EOS % 3.4 % (0.0-3.0); HEMATOCRIT 34.2 % (36.0-47.0); HEMOGLOBIN 10.6 g/dl (12.0-15.5); LYMPH # 1.5 10^3/uL (1.5-4.5); LYMPH % 11.5 % (24.0-44.0); MEAN CORPUSCULAR VOLUME 90.5 fl (80.0-96.0); MONO # 1.1 10^3/uL (0.0-0.8); MONO % 8.3 % (0.0-5.0); NEUTROPHILS # 9.8 10^3/uL (1.8-7.7); NEUTROPHILS % 75.8 % (36.0-66.0); PLATELET COUNT, AUTOMATED 199 10^3/uL (150-450); RED BLOOD COUNT 3.78 10^6/uL (4.00-5.40); WHITE BLOOD COUNT 12.9 10^3/uL (4.0-10.0)
[2018-09-22 05:49] LABS: ALBUMIN 2.5 GM/DL (3.2-5.2); BILIRUBIN,TOTAL 0.2 MG/DL (0.2-1.0); CALCIUM LEVEL 8.8 MG/DL (8.8-10.2); CREATININE FOR GFR 0.98 MG/DL (0.55-1.30); DIGOXIN LEVEL 2.2 NG/ML (0.5-2.0); GLOMERULAR FILTRATION RATE 59.2 (>39); POTASSIUM SERUM 4.6 MEQ/L (3.5-5.1); TOTAL PROTEIN 5.3 GM/DL (6.4-8.2)
[2018-09-22] MEDS: LEVOTHYROXINE 50MCG TABLET (0.05MG) PO SCH (06:21)
[2018-09-22] MEDS: HumaLOG INSULIN (NovoLOG) PER UNIT SC SCH ×4 (07:39→20:23)
[2018-09-22 08:00] VITALS: BP 112/53
[2018-09-22] MEDS: ADVAIR HFA 230/21MCG INHALER INH SCH (08:13)
[2018-09-22] MEDS: TIOTROPIUM INHALER/CAPSULE (SPIRIVA) INH SCH (08:13)
[2018-09-22] MEDS: ASPIRIN 81 MG ENTERIC TAB PO SCH (08:43)
[2018-09-22] MEDS: FERROUS SULFATE 325MG TAB PO SCH (08:44)
[2018-09-22] MEDS: APIXABAN 5 MG TAB (ELIQUIS) PO SCH ×2 (08:44→20:20)
[2018-09-22] MEDS: VENLAFAXINE 37.5 MG TAB PO SCH ×2 (08:44→20:20)
[2018-09-22] MEDS: GABAPENTIN 300 MG CAP PO SCH ×4 (08:46→20:20)
[2018-09-22] MEDS: OMEPRAZOLE 20 MG CAP PO SCH (08:46)
[2018-09-22] MEDS: MAGNESIUM OXIDE 400 MG TAB (MAG-OX) PO SCH ×3 (08:46→20:20)
[2018-09-22] MEDS: LEVEMIR (INSULIN DETEMIR) 1 UNITS/0.01ML SC SCH ×2 (08:47→20:21)
--- NOTE | 2018-09-22 09:00 | IPNPDOC ---
Subjective Date Seen The patient was seen on 09/22/18. Subjective Chief Complaint/HPI Pt this morning feeling better. She reports feeling a great deal better than yesterday. She cont to feel weak, relies on walker to help her ambulate. O2 is at home flow. General: Denies: Fatigue Constitutional: Denies: Chills, Fever Skin: Denies: Rash Pulmonary: Reports: Cough (chronic, stable); Denies: Dyspnea Cardiovascular: Denies: Chest Pain, Palpitations Gastrointestinal: Denies: Nausea, Vomiting, Diarrhea Neurological: Reports: Weakness Psych: Reports: Mood Normal Objective Physical Examination General Exam: Positive: Alert, Cooperative, No Acute Distress Neck Exam: Positive: Supple; Negative: JVD Chest Exam: Positive: Clear to auscultation, Normal air movement Heart Exam: Positive: Rate Normal, Irregular Rhythm Abdomen Exam: Positive: Normal bowel sounds, Soft; Negative: Tenderness Extremity Exam: Positive: Normal pulses; Negative: Edema Skin Exam: Negative: Rash, Breakdown Neuro Exam: Positive: Normal Speech, Strength at 5/5 X4 ext Psych Exam: Positive: Mental status NL, Mood NL A-FIB/CHADSVASC A-FIB History Current/History of A-Fib/PAF?: Yes Current Oral Anticoagulant The: Yes Assessment /Plan Problems (1) Syncope and collapse Status: Acute Response to Treatment: Stable, Improving Discussed With: Patient Problem Specific Plan: Monitor Clinically Problem Text: 09/22 Dig level 2.2 this morning, repeat in AM. signs of toxicity improving. MS stable, bradycardia improving as well, now mostly in the 50-60s, vs 40-50s 09/21 likely d/t Dig toxicity and bradycardia. Dig is held, digibind has been administered, recheck Dig level tomorrow. Rate remain colette, pressures normotensive. PT ordered. (2) Digoxin toxicity Status: Acute Problem Specific Plan: Monitor Clinically Problem Text: see above (3) Bradycardia Status: Acute Problem Text: See above. (4) Hyperkalemia Status: Resolved Problem Specific Plan: Monitor Clinically Problem Text: 09/22 K 4.6 (5) CKD stage 3 due to type 2 diabetes mellitus Status: Resolved Problem Text: Returned to baseline. (6) MORBID (SEVERE) OBESITY DUE TO EXCESS CALORIES Status: Chronic Response to Treatment: Stable (7) Diastolic CHF Status: Chronic Response to Treatment: Stable Problem Specific Plan: Monitor Clinically (8) Physical deconditioning Status: Chronic Response to Treatment: Stable Problem Specific Plan: Monitor Clinically Problem Text: PT ordered (9) Dementia Status: Chronic Response to Treatment: Stable Plan/VTE VTE Prophylaxis Ordered?: Yes VTE Exclusion Mechanical Proph: Other VTE Exclusion Pharmacological: Other Plan Anticipated Discharge: Home With Services VS, I&O, 24H, Fishbone Vital Signs/I&O Vital Signs Date Time Temp Pulse Resp B/P (MAP) Pulse Ox O2 Delivery O2 Flow Rate FiO2 09/22/18 08:14 67 09/22/18 08:00 98.3 20 112/53 (72) 93 1.0 09/21/18 05:00 Nasal Cannula I&O- Last 24 Hours up to 6 AM 09/22/18 06:00 Intake Total 3225 ml Output Total 1200 ml Balance 2025 ml Laboratory Data 24H LABS Laboratory Tests 2 09/21/18 12:15: Bedside Glucose (Misc Panel) 226H 09/21/18 17:00: Bedside Glucose (Misc Panel) 214H 09/21/18 20:28: Bedside Glucose (Misc Panel) 259H 09/22/18 04:50: Immature Granulocyte % (Auto) 0.5, White Blood Count 12.9H, Red Blood Count 3.78L, Hemoglobin 10.6L, Hematocrit 34.2L, Mean Corpuscular Volume 90.5, Mean Corpuscular Hemoglobin 28.0, Mean Corpuscular Hemoglobin Concent 31.0L, Red Cell Distribution Width 15.9H, Platelet Count 199, Neutrophils (%) (Auto) 75.8H, Lymphocytes (%) (Auto) 11.5L, Monocytes (%) (Auto) 8.3H, Eosinophils (%) (Auto) 3.4H, Basophils (%) (Auto) 0.5, Neutrophils # (Auto) 9.8H, Lymphocytes # (Auto) 1.5, Monocytes # (Auto) 1.1H, Eosinophils # (Auto) 0.4, Basophils # (Auto) 0.1, Nucleated Red Blood Cells % (auto) 0.0, Anion Gap 8, Glomerular Filtration Rate 59.2, Blood Urea Nitrogen 12, Creatinine 0.98, Sodium Level 135L, Potassium Level 4.6, Chloride Level 101, Carbon Dioxide Level 26, Calcium Level 8.8, Aspartate Amino Transf (AST/SGOT) 44H, Alanine Aminotransferase (ALT/SGPT) 68, Alkaline Phosphatase 133H, Total Bilirubin 0.2, Total Protein 5.3L, Albumin 2.5L, Albumin/Globulin Ratio 0.89L, Digoxin Level 2.2H CBC/BMP Laboratory Tests 09/22/18 04:50 Red Blood Count 3.78 L, Mean Corpuscular Volume 90.5, Mean Corpuscular H emoglobin 28.0, Mean Corpuscular Hemoglobin Concent 31.0 L, Red Cell Distribution Width 15.9 H, Neutrophils (%) (Auto) 75.8 H, Lymphocytes (%) (Auto) 11.5 L, Monocytes (%) (Auto) 8.3 H, Eosinophils (%) (Auto) 3.4 H, Basophils (%) (Auto) 0.5, Neutrophils # (Auto) 9.8 H, Lymphocytes # (Auto) 1.5, Monocytes # (Auto) 1.1 H, Eosinophils # (Auto) 0.4, Basophils # (Auto) 0.1, Calcium Level 8.8, Aspartate Amino Transf (AST/SGOT) 44 H, Alanine Aminotransferase (ALT/SGPT) 68, Alkaline Phosphatase 133 H, Total Bilirubin 0.2, Total Protein 5.3 L, Albumin 2.5 L Microbiology Microbiology 09/21/18 MRSA Screen, Received Pending MEGHA MOREL PA-C September 22, 2018 09:00
[2018-09-22 09:09] LABS: MAGNESIUM LEVEL 2.1 MG/DL (1.8-2.4)
[2018-09-22] MEDS: DULoxetine 30 MG CAP (CYMBALTA) PO SCH (11:54)
[2018-09-22 12:00] VITALS: BP 119/59
[2018-09-22 16:00] VITALS: BP 118/57
[2018-09-22 20:00] VITALS: BP 132/63
[2018-09-22] MEDS: ATORVASTATIN 20 MG TAB PO SCH (20:20)
[2018-09-22] MEDS: ALLOPURINOL 100 MG TAB PO SCH (20:20)
[2018-09-22] MEDS: TAMSULOSIN 0.4 MG CAP PO SCH (20:20)
[2018-09-22] MEDS: traZODone 50 MG TAB PO SCH (20:20)
[2018-09-23] VITALS: BP 114/55
[2018-09-23 04:00] VITALS: BP 115/56
[2018-09-23 05:23] LABS: BASO # 0.1 10^3/uL (0.0-0.2); BASO % 0.5 % (0.0-1.0); EOS # 0.4 10^3/uL (0.0-0.50); EOS % 4.2 % (0.0-3.0); HEMATOCRIT 32.9 % (36.0-47.0); HEMOGLOBIN 10.2 g/dl (12.0-15.5); LYMPH # 1.1 10^3/uL (1.5-4.5); LYMPH % 11.2 % (24.0-44.0); MEAN CORPUSCULAR HEMOGLOBIN 27.7 pg (27.0-33.0); MEAN CORPUSCULAR VOLUME 89.4 fl (80.0-96.0); MONO # 0.9 10^3/uL (0.0-0.8); NEUTROPHILS # 7.6 10^3/uL (1.8-7.7); NEUTROPHILS % 74.5 % (36.0-66.0); PLATELET COUNT, AUTOMATED 184 10^3/uL (150-450); RED BLOOD COUNT 3.68 10^6/uL (4.00-5.40); WHITE BLOOD COUNT 10.2 10^3/uL (4.0-10.0)
[2018-09-23 05:58] LABS: ALBUMIN 2.6 GM/DL (3.2-5.2); ALT/SGPT 51 U/L (12-78); BILIRUBIN,TOTAL 0.3 MG/DL (0.2-1.0); BLOOD UREA NITROGEN 8 MG/DL (7-18); CALCIUM LEVEL 8.1 MG/DL (8.8-10.2); CARBON DIOXIDE LEVEL 29 MEQ/L (21-32); CHLORIDE LEVEL 100 MEQ/L (98-107); CREATININE FOR GFR 0.71 MG/DL (0.55-1.30); DIGOXIN LEVEL 1.5 NG/ML (0.5-2.0); GLOMERULAR FILTRATION RATE > 60.0 (>39); GLUCOSE, FASTING 120 MG/DL (70-100); MAGNESIUM LEVEL 1.8 MG/DL (1.8-2.4); POTASSIUM SERUM 4.4 MEQ/L (3.5-5.1); SODIUM LEVEL 134 MEQ/L (136-145); TOTAL PROTEIN 5.1 GM/DL (6.4-8.2)
[2018-09-23] MEDS: LEVOTHYROXINE 50MCG TABLET (0.05MG) PO SCH (06:23)
[2018-09-23 08:00] VITALS: BP 122/57
[2018-09-23] MEDS: TIOTROPIUM INHALER/CAPSULE (SPIRIVA) INH SCH (08:03)
[2018-09-23] MEDS: ADVAIR HFA 230/21MCG INHALER INH SCH (08:04)
[2018-09-23] MEDS: HumaLOG INSULIN (NovoLOG) PER UNIT SC SCH ×4 (08:22→19:55)
[2018-09-23] MEDS: LEVEMIR (INSULIN DETEMIR) 1 UNITS/0.01ML SC SCH ×2 (08:22→19:56)
[2018-09-23] MEDS: APIXABAN 5 MG TAB (ELIQUIS) PO SCH ×2 (08:22→19:59)
[2018-09-23] MEDS: ASPIRIN 81 MG ENTERIC TAB PO SCH (08:23)
[2018-09-23] MEDS: VENLAFAXINE 37.5 MG TAB PO SCH ×2 (08:23→19:58)
[2018-09-23] MEDS: GABAPENTIN 300 MG CAP PO SCH ×4 (08:23→19:57)
[2018-09-23] MEDS: OMEPRAZOLE 20 MG CAP PO SCH (08:23)
[2018-09-23] MEDS: FERROUS SULFATE 325MG TAB PO SCH (08:23)
[2018-09-23] MEDS: MAGNESIUM OXIDE 400 MG TAB (MAG-OX) PO SCH ×3 (08:25→19:58)
--- NOTE | 2018-09-23 10:23 | IPNPDOC ---
Subjective Date Seen The patient was seen on 09/23/18. Subjective Chief Complaint/HPI Feels well. No complaints. Eating and drinking well. HR in 50 - 60s. Constitutional: Denies: Chills, Fever Pulmonary: Denies: Dyspnea, Cough Cardiovascular: Denies: Chest Pain, Palpitations Gastrointestinal: Denies: Nausea, Vomiting, Abdominal Pain, Diarrhea, Constipation Objective Physical Examination General Exam: Positive: Alert, Cooperative, No Acute Distress Chest Exam: Positive: Clear to auscultation, Normal air movement; Negative: Rales, Rhonchi, Wheezing Heart Exam: Positive: Rate Normal, Irregular Rhythm Abdomen Exam: Positive: Normal bowel sounds, Soft; Negative: Tenderness Extremity Exam: Positive: Edema (trace edema BL) Neuro Exam: Positive: Normal Speech Psych Exam: Positive: Mental status NL, Mood NL; Negative: Memory Intact A-FIB/CHADSVASC A-FIB History Current/History of A-Fib/PAF?: Yes Current Oral Anticoagulant The: Yes Assessment /Plan Problems (1) Syncope and collapse Status: Acute Response to Treatment: Stable, Improving Discussed With: Patient Problem Specific Plan: Monitor Clinically Problem Text: 09/23 - secondary to ARF, hyperkalemia and dig toxicity with bradycardia - All resolved - No further syncope Lasix, Dig, Bisoprolol on hold. Monitor rate. Dr. Esposito recommends d/c without any rate control agents and f/u in his office Friday. PFS involved with arranging more supervision of patient due to concerns that this event occurred b/c patient took too much Lasix, Dig or both (see Disposition discussion below) continue PT. Await plans from PFS. Cont to monitor HR on tele in the meantime. May need to restart Bisoprolol and eventually dig if rate becomes rapid again. 09/22 Dig level 2.2 this morning, repeat in AM. signs of toxicity improving. MS stable, bradycardia improving as well, now mostly in the 50-60s, vs 40-50s 09/21 likely d/t Dig toxicity and bradycardia. Dig is held, digibind has been administered, recheck Dig level tomorrow. Rate remain colette, pressures normotensive. PT ordered. (2) Acute renal failure Status: Resolved Problem Text: Resolved with D/c of Lasix and Administration of IVF (3) Digoxin toxicity Status: Resolved Problem Specific Plan: Monitor Clinically Problem Text: 09/23 - s/p Digibind on admission. Dig level now 1.5. Continue to hold dig for now (4) Bradycardia Status: Resolved Problem Text: 09/23 - Rate improved with Dig held and Bisoprolol held See above. (5) Hyperkalemia Status: Resolved Problem Specific Plan: Monitor Clinically Problem Text: 09/22 K 4.6 (6) CKD stage 3 due to type 2 diabetes mellitus Status: Chronic Response to Treatment: Stable Problem Text: Returned to baseline. (7) MORBID (SEVERE) OBESITY DUE TO EXCESS CALORIES Status: Chronic Response to Treatment: Stable (8) Diastolic CHF Status: Chronic Response to Treatment: Stable Problem Specific Plan: Monitor Clinically Problem Text: Lasix on hold. Will likely need this restarted - I would restart Lasix 40 daily (was on 40 BID at home prior to admission) (9) Physical deconditioning Status: Chronic Response to Treatment: Stable Problem Specific Plan: Monitor Clinically Problem Text: PT ordered (10) Dementia Status: Chronic Response to Treatment: Stable (11) DARSHAN on CPAP Status: Chronic Response to Treatment: Stable (12) IDDM (insulin dependent diabetes mellitus) Status: Chronic Response to Treatment: Stable Plan/VTE VTE Prophylaxis Ordered?: Yes (Eliquis) VTE Exclusion Mechanical Proph: Other VTE Exclusion Pharmacological: Other Plan Therapy: PT Pt and Family Services: Home Care, Other PFS Anticipated Discharge: Home With Services Disposition Patient was seen in office renal function and K+ level were normal and HR 105 on Lasix 40 BID since 08/18/18, Dig 250 qd and Bisoprolol. Concern that patient took too much Lasix, dig or both leading to the admission 09/21 with SRF, Hyperkalemia and Dig toxicity. She will need more supervision of medication administration due to progressively worsening dementia. PFS aware and will be contacting family to make arrangements prior to discharge VS, I&O, 24H, [place] Vital Signs/I&O Vital Signs Date Time Temp Pulse Resp B/P (MAP) Pulse Ox O2 Delivery O2 Flow Rate FiO2 09/23/18 08:07 59 09/23/18 08:00 1.0 09/23/18 08:00 98.9 21 122/57 (78) 93 09/21/18 05:00 Nasal Cannula I&O- Last 24 Hours up to 6 AM 09/23/18 06:00 Intake Total 2280 ml Output Total 2500 ml Balance -220 ml Laboratory Data 24H LABS Laboratory Tests 2 09/22/18 11:45: Bedside Glucose (Misc Panel) 188H 09/22/18 16:51: Bedside Glucose (Misc Panel) 237H 09/22/18 20:22: Bedside Glucose (Misc Panel) 207H 09/23/18 05:04: Immature Granulocyte % (Auto) 0.6, White Blood Count 10.2H, Red Blood Count 3.68L, Hemoglobin 10.2L, Hematocrit 32.9L, Mean Corpuscular Volume 89.4, Mean Corpuscular Hemoglobin 27.7, Mean Corpuscular Hemoglobin Concent 31.0L, Red Cell Distribution Width 15.8H, Platelet Count 184, Neutrophils (%) (Auto) 74.5H, Lymphocytes (%) (Auto) 11.2L, Monocytes (%) (Auto) 9.0H, Eosinophils (%) (Auto) 4.2H, Basophils (%) (Auto) 0.5, Neutrophils # (Auto) 7.6, Lymphocytes # (Auto) 1.1L, Monocytes # (Auto) 0.9H, Eosinophils # (Auto) 0.4, Basophils # (Auto) 0.1, Nucleated Red Blood Cells % (auto) 0.0, Anion Gap 5L, Glomerular Filtration Rate > 60.0, Blood Urea Nitrogen 8, Creatinine 0.71, Sodium Level 134L, Potassium Level 4.4, Chloride Level 100, Carbon Dioxide Level 29, Calcium Level 8.1L, Aspartate Amino Transf (AST/SGOT) 24, Alanine Aminotransferase (ALT/SGPT) 51, Alkaline Phosphatase 142H, Total Bilirubin 0.3, Total Protein 5.1L, Albumin 2.6L, Magnesium Level 1.8, Albumin/Globulin Ratio 1.04, Digoxin Level 1.5 CBC/BMP Laboratory Tests 09/23/18 05:04 Red Blood Count 3.68 L, Mean Corpuscular Volume 89.4, Mean Corpuscular Hemoglobin 27.7, Mean Corpuscular Hemoglobin Concent 31.0 L, Red Cell Distribution Width 15.8 H, Neutrophils (%) (Auto) 74.5 H, Lymphocytes (%) (Auto) 11.2 L, Monocytes (%) (Auto) 9.0 H, Eosinophils (%) (Auto) 4.2 H, Basophils (%) (Auto) 0.5, Neutrophils # (Auto) 7.6, Lymphocytes # (Auto) 1.1 L, Monocytes # (Auto) 0.9 H, Eosinophils # (Auto) 0.4, Basophils # (Auto) 0.1, Calcium Level 8.1 L, Aspartate Amino Transf (AST/SGOT) 24, Alanine Aminotransferase (ALT/SGPT) 51, Alkaline Phosphatase 142 H, Total Bilirubin 0.3, Total Protein 5.1 L, Alb umin 2.6 L Microbiology Microbiology 09/21/18 MRSA Screen - Final, Complete DANA LANZA PA-C September 23, 2018 10:23
[2018-09-23 12:03] VITALS: BP 119/57
[2018-09-23] MEDS: DULoxetine 30 MG CAP (CYMBALTA) PO SCH (12:10)
--- NOTE | 2018-09-23 12:27 | ECGEPIP ---
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
[2018-09-23 16:00] VITALS: BP 108/53
[2018-09-23] MEDS: traZODone 50 MG TAB PO SCH (19:57)
[2018-09-23] MEDS: ALLOPURINOL 100 MG TAB PO SCH (19:58)
[2018-09-23] MEDS: TAMSULOSIN 0.4 MG CAP PO SCH (19:58)
[2018-09-23] MEDS: ATORVASTATIN 20 MG TAB PO SCH (19:59)
[2018-09-23 20:00] VITALS: BP 123/60
[2018-09-24] VITALS: BP 143/64
[2018-09-24 04:00] VITALS: BP 141/65
[2018-09-24] MEDS: LEVOTHYROXINE 50MCG TABLET (0.05MG) PO SCH (05:56)
[2018-09-24 07:26] VITALS: BP 129/56
[2018-09-24] MEDS: ADVAIR HFA 230/21MCG INHALER INH SCH (08:23)
[2018-09-24] MEDS: TIOTROPIUM INHALER/CAPSULE (SPIRIVA) INH SCH (08:23)
[2018-09-24] MEDS: LEVEMIR (INSULIN DETEMIR) 1 UNITS/0.01ML SC SCH (08:27)
[2018-09-24] MEDS: APIXABAN 5 MG TAB (ELIQUIS) PO SCH (08:28)
[2018-09-24] MEDS: HumaLOG INSULIN (NovoLOG) PER UNIT SC SCH ×2 (08:28→12:13)
[2018-09-24] MEDS: VENLAFAXINE 37.5 MG TAB PO SCH (08:29)
[2018-09-24] MEDS: ASPIRIN 81 MG ENTERIC TAB PO SCH (08:29)
[2018-09-24] MEDS: OMEPRAZOLE 20 MG CAP PO SCH (08:29)
[2018-09-24] MEDS: GABAPENTIN 300 MG CAP PO SCH ×2 (08:29→12:13)
[2018-09-24] MEDS: FERROUS SULFATE 325MG TAB PO SCH (08:30)
[2018-09-24] MEDS: MAGNESIUM OXIDE 400 MG TAB (MAG-OX) PO SCH (08:30)
--- NOTE | 2018-09-24 10:10 | IPNPDOC ---
Subjective Date Seen The patient was seen on 09/24/18. Subjective Chief Complaint/HPI Pt this morning is feeling pretty good. She wants to go home. Her family is at bedside and cont to work towards arranging 24 h care. Constitutional: Denies: Chills, Fever Pulmonary: Denies: Dyspnea, Cough Cardiovascular: Denies: Chest Pain, Palpitations Gastrointestinal: Denies: Nausea, Vomiting, Diarrhea Neurological: Denies: Weakness Psych: Reports: Mood Normal Objective Physical Examination General Exam: Positive: Alert, Cooperative, No Acute Distress Chest Exam: Positive: Clear to auscultation, Normal air movement; Negative: Rales, Rhonchi, Wheezing Heart Exam: Positive: Rate Normal, Irregular Rhythm Abdomen Exam: Positive: Normal bowel sounds, Soft; Negative: Tenderness Extremity Exam: Positive: Edema (trace edema BL) Neuro Exam: Positive: Normal Speech Psych Exam: Positive: Mental status NL, Mood NL; Negative: Memory Intact A-FIB/CHADSVASC A-FIB History Current/History of A-Fib/PAF?: No Assessment /Plan Problems (1) Syncope and collapse Status: Resolved Response to Treatment: Stable, Improving Discussed With: Patient Problem Specific Plan: Monitor Clinically Problem Text: 09/23 - secondary to ARF, hyperkalemia and dig toxicity with bradycardia - All resolved - No further syncope Lasix, Dig, Bisoprolol on hold. Monitor rate. Dr. Esposito recommends d/c without any rate control agents and f/u in his office Friday. PFS involved with arranging more supervision of patient due to concerns that this event occurred b/c patient took too much Lasix, Dig or both (see Disposition discussion below) continue PT. Await plans from PFS. Cont to monitor HR on tele in the meantime. May need to restart Bisoprolol and eventually dig if rate becomes rapid again. 09/22 Dig level 2.2 this morning, repeat in AM. signs of toxicity improving. MS stable, bradycardia improving as well, now mostly in the 50-60s, vs 40-50s 09/21 likely d/t Dig toxicity and bradycardia. Dig is held, digibind has been administered, recheck Dig level tomorrow. Rate remain colette, pressures normotensive. PT ordered. (2) Acute renal failure Status: Resolved Problem Text: Resolved with D/c of Lasix and Administration of IVF (3) Digoxin toxicity Status: Resolved Problem Specific Plan: Monitor Clinically Problem Text: 09/23 - s/p Digibind on admission. Dig level now 1.5. Continue to hold dig for now (4) Bradycardia Status: Resolved Problem Text: 09/23 - Rate improved with Dig held and Bisoprolol held See above. (5) Hyperkalemia Status: Resolved Problem Specific Plan: Monitor Clinically Problem Text: 09/22 K 4.6 (6) CKD stage 3 due to type 2 diabetes mellitus Status: Chronic Response to Treatment: Stable Problem Text: Returned to baseline. (7) MORBID (SEVERE) OBESITY DUE TO EXCESS CALORIES Status: Chronic Response to Treatment: Stable (8) Diastolic CHF Status: Chronic Response to Treatment: Stable Problem Specific Plan: Monitor Clinically Problem Text: Lasix on hold. Will likely need this restarted - I would restart Lasix 40 daily (was on 40 BID at home prior to admission) (9) Physical deconditioning Status: Chronic Response to Treatment: Stable Problem Specific Plan: Monitor Clinically Problem Text: PT ordered (10) Dementia Status: Chronic Response to Treatment: Stable (11) DARSHAN on CPAP Status: Chronic Response to Treatment: Stable (12) IDDM (insulin dependent diabetes mellitus) Status: Chronic Response to Treatment: Stable Plan/VTE VTE Prophylaxis Ordered?: Yes (Eliquis) VTE Exclusion Mechanical Proph: Other VTE Exclusion Pharmacological: Other Plan Therapy: PT Pt and Family Services: Home Care, Other PFS Anticipated Discharge: Home With Services VS, I&O, 24H, [facility] Vital Signs/I&O Vital Signs Date Time Temp Pulse Resp B/P (MAP) Pulse Ox O2 Delivery O2 Flow Rate FiO2 09/24/18 08:00 1.0 09/24/18 07:26 97.8 59 20 129/56 (80) 97 09/21/18 05:00 Nasal Cannula I&O- Last 24 Hours up to 6 AM 09/24/18 06:00 Intake Total 1280 ml Output Total 1950 ml Balance -670 ml Laboratory Data 24H LABS Laboratory Tests 2 09/23/18 11:52: Bedside Glucose (Misc Panel) 247H 09/23/18 16:55: Bedside Glucose (Misc Panel) 249H 09/23/18 19:54: Bedside Glucose (Misc Panel) 209H 09/24/18 07:24: Bedside Glucose (Misc Panel) 174H Microbiology Microbiology 09/21/18 MRSA Screen - Final, Complete MEGHA MOREL PA-C September 24, 2018 10:10
[2018-09-24] MEDS: DULoxetine 30 MG CAP (CYMBALTA) PO SCH (12:13)
--- NOTE | 2018-09-24 21:46 | DSES ---
DATE OF ADMISSION: 09/21/2018 DATE OF DISCHARGE: 09/24/2018 PRIMARY CARE PHYSICIAN: Ness Galan MD This is a 73-year-old female patient who was brought by Emergency Medical Service (EMS) to [facility] Emergency Room with increasing lethargy, weakness, falls, syncopal episode at home. She was lethargic, but arousable and confused on the presentation to the emergency room. She was found to be dehydrated with hyperkalemia and digitoxicity. She was admitted to the intensive care unit (ICU) for further management and monitoring. She was administered Digibind in the emergency room. During her hospitalization, she has remained medically stable. Her heart rate has improved and is consistently between the mid 50s and mid 70s. Her digoxin has been held and will continue to be held at discharge. Her potassium levels have normalized. Her renal function has also returned to baseline. She has been seen physical therapy, who feels as though she is safe to return home. Cardiology plans on seeing the patient in close followup next week to further monitor her heart rate. DISCHARGE DIAGNOSES INCLUDE: 1. Syncope. 2. Acute renal failure. 3. Digoxin toxicity. 4. Bradycardia. 5. Hyperkalemia. 6. Chronic kidney disease, stage III. 7. Diabetes mellitus type 2. 8. Morbid obesity. 9. Chronic diastolic congestive heart failure. 10. Dementia. 11. Obstructive sleep apnea. DISCHARGE MEDICATIONS INCLUDE: - albuterol sulfate inhaled every 4 hours as needed for shortness of breath - ProAir HFA 2 puffs inhaled every 4 hours as needed for shortness of breath - allopurinol 100 mg by mouth at bedtime (q.h.s.) - Eliquis 5 mg by mouth twice a day - aspirin 81 mg by mouth daily - atorvastatin 40 mg by mouth at bedtime (q.h.s.) - calcium with D one tablet daily - vitamin D 400 units daily - dicyclomine 20 mg by mouth three times a day - docusate sodium 100 mg by mouth twice a day as needed for constipation - duloxetine 30 mg daily - ferrous sulfate 325 mg daily - fexofenadine 180 mg daily as needed for nasal congestion - fish oil 1200 mcg by mouth twice a day - furosemide 40 mg daily - gabapentin 300 mg 4 x daily - Lantus 44 units before bed, 60 units in the morning, Humalog sliding scale before food, at bedtime (q.h.s.) - levothyroxine 50 mcg by mouth daily - magnesium oxide 800 mg by mouth three times a day - omeprazole 40 mg by mouth daily - Percocet 5/325 one tablet three times a day as needed for pain - MiraLAX 17 grams by mouth daily as needed for constipation - ranitidine 150 mg by mouth daily - Advair 500/50 inhaled daily - Flomax 0.4 mg by mouth at bedtime (q.h.s.) - Spiriva 18 mcg one inhalation daily - tizanidine 4 mg by mouth at bedtime (q.h.s.) - trazodone 150 mg by mouth before bed - venlafaxine 150 mg by mouth twice a day - PreserVision soft gel one cap by mouth twice a day Her digoxin and potassium have been discontinued. Her discharge plan will be to followup with her primary care physician in one week, followup with cardiology within one week. Her activity should be as tolerated. Her diet is consistent carbohydrate, low cholesterol, no added salt. She will need a followup basic metabolic panel (BMP) and hospital followup. She is being discharged home with 24 hour care. ROMERO
== END 2018-09-24 14:10 | disposition home health service (06) | DRG 309 ==
LOC: M ED 23:42 → M ED INP 09-21 04:02 → M ICU 09-21 05:29
PROVIDERS: ADMIT Internal Medicine; ATTEND Family Medicine
DX: R00.1 Bradycardia, unspecified (principal); I50.32 Chronic diastolic (congestive) heart failure; N17.9 Acute kidney failure, unspecified; Z68.41 Body mass index [BMI] 40.0-44.9, adult; I13.0 Hypertensive heart and chronic kidney disease with heart failure and stage 1 through stage 4 chronic kidney disease, or unspecified chronic kidney disease; T46.0X5A Adverse effect of cardiac-stimulant glycosides and drugs of similar action, initial encounter; E66.01 Morbid (severe) obesity due to excess calories; R55 Syncope and collapse; G47.33 Obstructive sleep apnea (adult) (pediatric); E11.9 Type 2 diabetes mellitus without complications; E87.5 Hyperkalemia; F02.80 Dementia in other diseases classified elsewhere, unspecified severity, without behavioral disturbance, psychotic disturbance, mood disturbance, and anxiety; E86.0 Dehydration; Z79.899 Other long term (current) drug therapy; Z79.82 Long term (current) use of aspirin; Z79.01 Long term (current) use of anticoagulants; I48.91 Unspecified atrial fibrillation; Z88.0 Allergy status to penicillin; M10.9 Gout, unspecified; G30.9 Alzheimer's disease, unspecified; E78.5 Hyperlipidemia, unspecified; J44.9 Chronic obstructive pulmonary disease, unspecified; Z99.81 Dependence on supplemental oxygen; F17.200 Nicotine dependence, unspecified, uncomplicated; F32.9 Major depressive disorder, single episode, unspecified

== ENCOUNTER 2018-09-26 16:17 | Inpatient (IN) | payer MEDICARE, MEDICAID ==
[~2018-09-26] VITALS: Ht 165.1 cm; Wt 112.0 kg
[~2018-09-26 16:17] MED LIST changes: +BISO5TAB5 PO; +CVS400CA PO; +KP F1200 PO
[2018-09-26 16:50] LABS: BASO # 0.1 10^3/uL (0.0-0.2); BASO % 0.4 % (0.0-1.0); EOS # 0.3 10^3/uL (0.0-0.50); EOS % 2.7 % (0.0-3.0); HEMATOCRIT 41.6 % (36.0-47.0); HEMOGLOBIN 12.9 g/dl (12.0-15.5); LYMPH # 1.1 10^3/uL (1.5-4.5); LYMPH % 9.2 % (24.0-44.0); MEAN CORPUSCULAR HEMOGLOBIN 27.9 pg (27.0-33.0); MEAN CORPUSCULAR VOLUME 89.8 fl (80.0-96.0); MONO # 0.9 10^3/uL (0.0-0.8); MONO % 7.3 % (0.0-5.0); NEUTROPHILS # 9.3 10^3/uL (1.8-7.7); NEUTROPHILS % 79.7 % (36.0-66.0); PLATELET COUNT, AUTOMATED 213 10^3/uL (150-450); RED BLOOD COUNT 4.63 10^6/uL (4.00-5.40); WHITE BLOOD COUNT 11.7 10^3/uL (4.0-10.0)
[2018-09-26 16:58] LABS: ABG BASE EXCESS 7.6 (-2.0-2.0); ABG HCO3 31.7 MEQ/L (22.0-26.0); ABG O2 SATURATION 93.7 % (95.0-99.0); ABG PARTIAL PRESSURE CO2 42.6 mmHg (35.0-45.0); ABG PARTIAL PRESSURE O2 65.4 mmHg (75.0-100.0); ABG STANDARD HCO3 31.3 MEQ/L (22.0-26.0)
[2018-09-26 17:04] LABS: INR 1.26
[2018-09-26 17:05] LABS: PARTIAL THROMBOPLASTIN TIME 38.3 SECONDS (25.4-37.6)
[2018-09-26] MEDS: METOPROLOL 5 MG/5 ML VIAL IV SCH ×3 (17:07→17:19)
--- NOTE | 2018-09-26 17:13 | REP ---
Clinical: Chest pain. Comparison: 09/21/2018, 07/30/2018. Findings: Mediastinum and cardiac silhouette are stable. The lung jacome demonstrate diffuse chronic interstitial changes and scattered fibrosis. Pulmonary vascular congestion and interstitial edema as well as right lower lobe infiltrate cannot be excluded. No obvious effusion. No pneumothorax. Impression: Diffuse chronic interstitial changes and fibrosis. Cannot exclude pulmonary vascular congestion/interstitial edema or subtle right lower lobe infiltrate. Electronically Signed by Ki Garcia MD 09/26/2018 05:05 P
[2018-09-26 17:17] LABS: D-DIMER QUANT 675.95 ng/ml (<500)
[2018-09-26 17:25] LABS: ALBUMIN 3.2 GM/DL (3.2-5.2); ALT/SGPT 31 U/L (12-78); BILIRUBIN,DIRECT 0.2 MG/DL (0.0-0.2); BILIRUBIN,TOTAL 0.5 MG/DL (0.2-1.0); BLOOD UREA NITROGEN 3 MG/DL (7-18); CALCIUM LEVEL 8.5 MG/DL (8.8-10.2); CARBON DIOXIDE LEVEL 36 MEQ/L (21-32); CHLORIDE LEVEL 98 MEQ/L (98-107); CK-MB VALUE MASS < 1.0 NG/ML (<3.6); CPK CREATINE PHOSPHOKINASE 80 U/L (26-192); CREATININE FOR GFR 0.77 MG/DL (0.55-1.30); DIGOXIN LEVEL 0.5 NG/ML (0.5-2.0); FREE T4 1.22 NG/DL (0.76-1.46); GLOMERULAR FILTRATION RATE > 60.0 (>39); GLUCOSE, FASTING 198 MG/DL (70-100); LIPASE 66 U/L (73-393); MB/CK RELATIVE INDEX 1.25 (< OR =4); POTASSIUM SERUM 3.2 MEQ/L (3.5-5.1); SODIUM LEVEL 140 MEQ/L (136-145); TOTAL PROTEIN 6.2 GM/DL (6.4-8.2); TROPONIN I < 0.02 NG/ML (< 0.10)
[2018-09-26] MEDS ORDERED: METOPROLOL SUCC (TopROL XL) 50MG **XL** TAB PO ONE (17:45)
[2018-09-26] MEDS ORDERED: ISOVUE-370 76% 100ML VIAL (Q9967) As Ordered ONE (18:39)
[2018-09-26] MEDS ORDERED: POTASSIUM CHLORIDE 10 MEQ SR TABLET PO ONE (18:45)
[2018-09-26] MEDS ORDERED: KCL 40MEQ IN D5/NS 1000ML 1,000 ML IV SCH (18:45)
--- NOTE | 2018-09-26 19:13 | REP ---
Clinical: Acute chest pain with tachycardia and elevated D-dimer levels. Technique: Axial contrast enhanced images from the thoracic inlet to the upper abdomen using 100 ml Isovue 370 intravenous contrast material with coronal and sagittal re-formations. Comparison: 09/09/2017 Findings: Satisfactory enhancement of the pulmonary vasculature is achieved and no filling defects are identified to suggest pulmonary embolus. Thoracic aorta is normal caliber without aneurysm or dissection. Atherosclerotic changes to the thoracic aorta and coronary arteries noted. No cardiomegaly or pericardial effusion is identified. Lung jacome demonstrate diffuse COPD/emphysematous changes along with scattered fibrosis and scarring. Mild right basilar atelectasis cannot be excluded. No discrete focal consolidation. No effusion or pneumothorax. Stable right hilar adenopathy is unchanged compared to 09/09/2017. Old stable right rib fractures are identified. Impression: 1. No evidence for pulmonary embolus. 2. Minimal right basilar atelectasis cannot be excluded. 3. Diffuse chronic interstitial changes with fibrosis and scarring as well as bronchiectasis and scattered blebs suggesting element of COPD/emphysematous disease. Stable right hilar adenopathy. Electronically Signed by Ki Garcia MD 09/26/2018 07:05 P
--- NOTE | 2018-09-26 19:42 | ECGEPIP ---
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
--- NOTE | 2018-09-26 19:46 | ECGEPIP ---
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
[2018-09-26] MEDS ORDERED: DOCUSATE SODIUM 100 MG CAP PO PRN (20:30)
[2018-09-26] MEDS ORDERED: GLUCAGON FOR INJ 1 MG VIAL (J1610) SC PRN (20:30)
[2018-09-26] MEDS ORDERED: MOM 30ML SUSPENSION UDC PO PRN (20:30)
[2018-09-26] MEDS ORDERED: GLUCOSE 4 GM CHEW TABLET PO PRN (20:30)
[2018-09-26] MEDS ORDERED: DULoxetine 30 MG CAP (CYMBALTA) PO ONE (20:30)
[2018-09-26] MEDS ORDERED: DEXTROSE 50% 50 ML SYRINGE IV PRN (20:30)
[2018-09-26] MEDS: HumaLOG INSULIN (NovoLOG) PER UNIT SC SCH (21:00)
[2018-09-26] MEDS ORDERED: IPRATROPIUM 0.5MG/ALBUTEROL 2.5MG INH SOL UD 3ML (DUONEB)(J7620) NEB PRN (21:00)
[2018-09-26] MEDS ORDERED: traZODone 50 MG TAB PO ONE (21:00)
[2018-09-26] MEDS: DOCUSATE SODIUM 100 MG CAP PO SCH (21:00)
--- NOTE | 2018-09-26 21:00 | HPEPDOC ---
[facility] Medical History & Physical Date of Admission September 26, 2018 Date of Service: September 26, 2018 Attending Physician: FERNANDEZ MCLAIN MD History and Physical CHIEF COMPLAINT: Tachycardia, SOB HISTORY OF PRESENT ILLNESS: Patient has emergency department today with her family complaining of a one-day history tachycardia, shortness of breath, increased confusion. Her heart rate was measured at home today as being between [id number]. Family also reports that patient was not able to recognize her son which is out of the ordinary for her. Family states that she has been having to utilize her walker more than usual and that she has been becoming increasingly short of breath walking around her house. In the emergency department, patient was found to be in atrial fibrillation with RVR. Patient was given Toprol tartrate 5 mg IV and metoprolol succinate 50 mg by mouth and subsequently converted into normal sinus rhythm, heart rate and low 80s. CBC demonstrated a mildly elevated white count of 11.7 chemistry significant for hypokalemia of 3.2 repleted in the emergency department. BUN/CR of 3/0.77. Troponins negative. Digoxin level within normal limits at 0.5. Urine was negative. Did have an elevated d-dimer of 675. CT angio was performed negative for any acute pathology. Patient remained on 2 L nasal cannula with saturations around 95%. Of historical note, patient was discharged from the hospital 2 days ago after being admitted for digoxin toxicity. She presented to the emergency department on 09/21/2018 complaining of lethargy, weakness, falls, and syncope and was found to have a digoxin level of 3.9 and a potassium level of 6.3 and was subsequently given Digibind and admitted to the ICU. Her digoxin was held at discharge and she was given a referral to cardiology. PAST MEDICAL HISTORY: Hypertension Chronic kidney disease stage III History of chronic systolic heart failure, EF of 35% Hyperlipidemia Oxygen dependent COPD, 2 L via nasal cannula at home DARSHAN, noncompliant on CPAP Hypotension Gout Depression Continued tobacco use In some dependent diabetes Alzheimer's disease Diabetic nephropathy History of right lung adenocarcinoma S/P lobectomy Hypothyroid Postlaminectomy syndrome Paroxysmal atrial fibrillation/flutter PAST SURGICAL HISTORY: Cholecystectomy Appendectomy Hysterectomy Laminectomy RUL lobectomy EGD Colonoscopy SOCIAL HISTORY: Marital status: Resides in: Own home with 24 hour family care Children: Multiple Employment: Retired Tobacco use: Continued tobacco use, family reports 1-2 PPD for 63 years ETOH: Rare ETOH use Illicit drug use: Denies ilicit drug use FAMILY HISTORY: Family history noncontributory ALLERGIES: Please see below. REVIEW OF SYSTEMS: CONSTITUTIONAL: Does report increasing fatigue and decreased appetite since patient's discharge. Patient denies any recent history of subjective fevers, chills. Denies night sweats, dramatic changes in weight HEENT: She reports a chronic history of headaches. Denies any recent changes in vision, no difficulty swallowing CARDIOVASCULAR: Harsh presentation emergency department, patient was complaining of bilateral shoulder/upper chest pain which radiated anteriorly. From admission, patient denied any chest pain or discomfort, no palpitations RESPIRATORY: Patient reports a chronic history of shortness of breath, worsening since most recent discharge, worsening dyspnea on exertion. Patient utilizes 2 L of oxygen at home. Sleeps in a reclining chair. No recent history of cough, no sputum production or audible wheeze. GASTROINTESTINAL: She does have history of acid reflux for which she takes medication on a daily basis. She denies any abdominal pain or discomfort. Family reports a chronic history of diarrhea which persisted the morning of admission. GENITOURINARY: Patient has any difficulty with urination including dysuria or hematuria SKIN: No new rashes or new/evolving skin lesions MUSCULOSKELETAL: Patient denies any muscle/joint pain or weakness. NEUROLOGICAL: Patient does have a history of baseline dementia. Family reports worsening memory function the day of presentation and some slight confusion, similar to her prior admission. ENDOCRINE: Patient is of a history of diabetes with diabetic neuropathy, currently on medication HEMATOLOGIC/LYMPHATIC: Patient denies any history of recent bruising, she is on Plavix for history of fibrillation HOME MEDICATIONS: Please see below. PHYSICAL EXAMINATION: VITAL SIGNS: Please see below GENERAL APPEARANCE: Patient was interviewed and examined in the emergency department. Patient was found to be sitting upright in her hospital bed where hospital clothing in no acute distress. Multiple family members were found at bedside. Patient was able to answer questions appropriately and actively participate in her care. HEENT: Normocephalic, atraumatic, EOMI, fair oral hygiene CARDIOVASCULAR: Regular rate and rhythm, normal S1 and S2, no murmurs appreciated LUNGS: Diffuse wheezing and some crackles noted in the left lower lobe ABDOMEN: Obese, protuberant, nontender, nondistended EXTREMITIES: 2+ lower extremity edema bilaterally NEUROLOGICAL: She is alert and oriented 3, mentation close to baseline per family members at bedside. No focal neurologic deficits, no aphasia or facial dr ooping appreciated. PSYCHIATRIC: Mood and affect are appropriate given patient's current medical con dition LABORATORY DATA: See below. IMAGING: Chest x-ray (09/26/18): Diffuse chronic interstitial changes and fibrosis CT angios chest (09/26/18) to seize: No evidence for pulmonary emboli, minimal right basilar atelectasis cannot be excluded, right chronic interstitial changes with fibrosis and scarring as well as bronchiectasis and scattered blebs suggesting an element of COPD/emphysematous disease. Stable right hilar adenopathy ASSESSMENT: Patient is a 73-year-old white female the past medical history significant for paroxysmal atrial fibrillation, hypertension, insulin-dependent diabetes, COPD, CHF returns emergency department with a chief complaint of tachycardia and increasing exertional dyspnea after being discharged from the hospital earlier in the week after being hospitalized with digoxin toxicity. Upon discharge, patient's digoxin was held and patient was referred to cardiology. Hospitalist team was consulted for admission and further management of patient's paroxysmal atrial fibrillation and other chronic medical problems. PLAN: Paroxysmal atrial fibrillation Telemetry, vital checks every 2 hours Patient continued on home Eliquis Patient received metoprolol succinate in the emergency department as well as 2 doses of IV Lopressor, with a subsequent follow heart rate to within normal limits Patient will continue on Lopressor 25 mg twice a day starting tomorrow morning for rate control Hypertension Patient continue on Lopressor 25 mg twice a day as stated above Insulin-dependent diabetes Hold home medications Insulin sliding scale daily at bedtime and before meals COPD Continue home medications Titrate oxygen as appropriate CHF Continue home oral diuretics Nicotine dependence Patient reports continued cigarette use, family reports approximately 2 packs per day Nicotine patch ordered Hypokalemia Repleted in the emergency department Continue to monitor serial BMPs Morbid obesity Chronic, continue to educate regarding her healthy choices DARSHAN Patient self reports noncompliance with her CPAP. Chronic kidney disease, stage III Creatinine and BUN at baseline Continue to monitor Hypothyroid Continue home medication Diabetic neuropathy Continue home medication Dementia Chronic, continue to monitor clinically DVT prophylaxis: Teds and sequentials CODE STATUS: Full code Vital Signs Vital Signs Date Time Temp Pulse Resp B/P (MAP) Pulse Ox O2 Delivery O2 Flow Rate FiO2 09/26/18 18:05 82 22 127/60 (82) 94 Nasal Cannula 2.0 5/25/19 16:17 98.8 Laboratory Data Labs 24H Laboratory Tests 2 09/26/18 16:38: Immature Granulocyte % (Auto) 0.7, White Blood Count 11.7H, Red Blood Count 4.63, Hemoglobin 12.9, Hematocrit 41.6, Mean Corpuscular Volume 89.8, Mean Corpuscular Hemoglobin 27.9, Mean Corpuscular Hemoglobin Concent 31.0L, Red Cell Distribution Width 16.3H, Platelet Count 213, Neutrophils (%) (Auto) 79.7H, Lymphocytes (%) (Auto) 9.2L, Monocytes (%) (Auto) 7.3H, Eosinophils (%) (Auto) 2.7, Basophils (%) (Auto) 0.4, Neutrophils # (Auto) 9.3H, Lymphocytes # (Auto) 1.1L, Monocytes # (Auto) 0.9H, Eosinophils # (Auto) 0.3, Basophils # (Auto) 0.1, Nucleated Red Blood Cells % (auto) 0.0, Prothrombin Time 16.0H, Prothromb Time International Ratio 1.26, Activated Partial Thromboplast Time 38.3H, D-Dimer, Quantitative 675.95H, Anion Gap 6L, Glomerular Filtration Rate > 60.0, Calcium Level 8.5L, Aspartate Amino Transf (AST/SGOT) 20, Alanine Aminotransferase (ALT/SGPT) 31, Alkaline Phosphatase 161H, Total Bilirubin 0.5, Direct Bilirubin 0.2, Total Creatine Kinase 80, Creatine Kinase MB < 1.0, Creatine Kinase MB Relative Index 1.25, Troponin I < 0.02, Total Protein 6.2L, Albumin 3.2, Albumin/Globulin Ratio 1.07, Lipase 66L, Thyroid Stimulating Hormone (TSH) 3.900H, Free Thyroxine 1.22, Digoxin Level 0.5 09/26/18 16:44: Blood Gas Bicarbonate Standard 31.3H, Arterial Blood pH 7.490H, Arterial Blood Partial Pressure CO2 42.6, Arterial Blood Partial Pressure O2 65.4L, Arterial Blood Total CO2 33.0H, Arterial Blood HCO3 31.7H, Arterial Blood Base Excess 7.6H, Arterial Blood Oxygen Saturation 93.7L 09/26/18 18:25: Urine Color STRAW, Urine Appearance CLEAR, Urine pH 7.0, Urine Specific [place] 1.005, Urine Protein NEGATIVE, Urine Glucose (UA) NEGATIVE, Urine Ketones NEGATIVE, Urine Blood NEGATIVE, Urine Nitrite NEGATIVE, Urine Bilirubin NEGATIVE, Urine Urobilinogen 0.2, Urine Leukocyte Esterase NEGATIVE, Urine WBC (Auto) 1, Urine RBC (Auto) 2, Urine Hyaline Casts (Auto) 3, Urine Bacteria (Auto) 1+H, Urine Squamous Epithelial Cells 2, Urine Sperm (Auto) CBC/BMP Laboratory Tests 09/26/18 16:38 Red Blood Count 4.63, Mean Corpuscular Volume 89.8, Mean Corpuscular Hemoglobin 27.9, Mean Corpuscular Hemoglobin Concent 31.0 L, Red Cell Distribution Width 16.3 H, Neutrophils (%) (Auto) 79.7 H, Lymphocytes (%) (Auto) 9.2 L, Monocytes (%) (Auto) 7.3 H, Eosinophils (%) (Auto) 2.7, Basophils (%) (Auto) 0.4, Neutrophils # (Auto) 9.3 H, Lymphocytes # (Auto) 1.1 L, Monocytes # (Auto) 0.9 H, Eosinophils # (Auto) 0.3, Basophils # (Auto) 0.1 Home Medications Scheduled Allopurinol (Allopurinol) 100 Mg Tab, 100 MG PO QHS Apixaban (Eliquis) 5 Mg Tablet, 5 MG PO BID Aspirin (Aspirin EC) 81 Mg Tab, 81 MG PO DAILY Atorvastatin Calcium (Atorvastatin Calcium) 40 Mg Tab, 40 MG PO QHS Calcium Carbonate/Vitamin D3 (Calcium 600-Vit D3 800 Tablet) 1 Tab Tab, 1 TAB PO DAILY Cholecalciferol (Vitamin D3) (Vitamin D3) 400 Unit Capsule, 400 UNIT PO DAILY Dicyclomine HCl (Dicyclomine HCl) 20 Mg Tab, 20 MG PO TID Duloxetine Hcl (Duloxetine HCl) 30 Mg Cap, 30 MG PO DAILY TAKES AT NOON Ferrous Sulfate (Ferrous Sulfate) 325 Mg Tab, 325 MG PO DAILY Fexofenadine HCl (Fexofenadine HCl) 180 Mg Tab, 180 MG PO DAILY Fish Oil/Dha/Epa (Fish Oil 1,200 mg Fish Oil) 1 Each Capsule, 1 CAP PO BID Furosemide (Furosemide) 40 Mg Tablet, 40 MG PO DAILY Gabapentin (Gabapentin) 300 Mg Cap, 300 MG PO QID Insulin Glargine,Hum.rec.anlog (Lantus Solostar) 100 Unit/Ml Inj, 44 UNITS SC QHS Insulin Glargine,Hum.rec.anlog (Lantus Solostar) 100 Unit/Ml Inj, 60 UNITS SC QAM Insulin Human Lispro (Humalog) 1 Units/0.01 Ml Inj, 0 SC ACHS PER SLIDING SCALE Levothyroxine Sodium (Synthroid) 50 Mcg Tab, 50 MCG PO DAILY Magnesium Oxide (Magnesium Oxide) 400 Mg Tab, 800 MG PO TID Omeprazole (Omeprazole) 40 Mg Cap, 40 MG PO DAILY Ranitidine Hcl (Ranitidine HCl) 150 Mg Tab, 1 TAB PO DAILY Salmeterol/Fluticasone (Advair 500-50 Diskus) 28 Puff/Inhaler Aerp, 1 PUFF INH DAILY Tamsulosin HCl (Flomax) 0.4 Mg Cap, 0.4 MG PO QHS Tiotropium [place] (Spiriva) 18 Mcg Cap, 1 CAP INH DAILY Tizanidine HCl (Tizanidine HCl) 4 Mg Tab, 4 MG PO QHS Trazodone HCl (Trazodone HCl) 100 Mg Tab, 150 MG PO QHS Venlafaxine HCl (Venlafaxine HCl) 75 Mg Tab, 150 MG PO BID Vit A/Vit C/Vit E/Zinc/Copper (Preservision Areds Softgel) 1 Cap Cap, 1 CAP PO BID Scheduled PRN Albuterol Sulf (Albuterol Sulfate) 2.5 Mg/3 Ml Nebu, 2.5 MG INH Q4H PRN for SHORTNESS OF BREATH Albuterol Sulfate (Proair Hfa) 108 Mcg/Act Aer, 2 PUFFS INH Q4H PRN for SHORTNESS OF BREATH Docusate Sodium (Docusate Sodium) 100 Mg Cap, 100 MG PO BID PRN for CONSTIPATION Oxycodone HCl/Acetaminophen (Oxycodone-Acetaminophen 5-325) 1 Tab Tab, 1 TAB PO TID PRN for PAIN Polyethylene Glycol 3350 (Miralax) 1 Pow Pow, 17 GM PO DAILY PRN for CONSTIPATION Allergies Coded Allergies: Penicillins (Verified Allergy, Unknown, 07/30/18) A-FIB/CHADSVASC A-FIB History Current/History of A-Fib/PAF?: No GME ATTESTATION GME ATTESTATION My faculty preceptor for this patient encounter was physically present during the encounter and was fully available. All aspects of the patient interview, examination, medical decision making process, and medical care plan development were reviewed and approved by the faculty preceptor. The faculty preceptor is aware and concurs with the plan as stated in the body of this note and will attest to such by his/her cosignature. ATTENDING NOTE I personally performed a history and physical examination of the patient and discussed the management with the resident. I reviewed the resident's note and agree with the documented findings and plan of care with the following addendums. As per family her confusion as improved by 90% . Currently she is in sinus rhythm. She converted around 5:30 pm. At home her pulse rate was in 80s in the morning was 130s at 3;50pm along with continued confusion through out the day. Thats when family decided to bring her in. On Physical EXAm she has mild diffuse wheezing with overall diminished breath sounds. family noted tat she was breathing a little heavier than usual in the lat 2 days. SHe has bipedal edema right >left with stasis dermatitis. KEVIN COE DO September 26, 2018 21:00 FERNANDEZ MCLAIN MD September 27, 2018 00:11
[2018-09-26] MEDS: APIXABAN 5 MG TAB (ELIQUIS) PO SCH (21:12)
[2018-09-26] MEDS: TAMSULOSIN 0.4 MG CAP PO SCH (21:12)
[2018-09-26] MEDS: GABAPENTIN 300 MG CAP PO SCH (21:12)
[2018-09-26] MEDS: ATORVASTATIN 20 MG TAB PO SCH (21:12)
[2018-09-26] MEDS: MAGNESIUM OXIDE 400 MG TAB (MAG-OX) PO SCH (21:12)
[2018-09-26] MEDS: ALLOPURINOL 100 MG TAB PO SCH (21:13)
[2018-09-26 23:15] VITALS: BP 127/61
[2018-09-27] MEDS: VENLAFAXINE 37.5 MG TAB PO SCH ×3 (00:14→20:57)
[2018-09-27] MEDS: OCUVITE 1 TAB PO SCH ×3 (00:14→20:56)
[2018-09-27] MEDS: ALBUTEROL SULFATE 2.5 MG/0.5 ML INH NEB SOLN NEB SCH ×4 (00:17→21:52)
[2018-09-27] MEDS ORDERED: ALBUTEROL SULFATE 2.5 MG/0.5 ML INH NEB SOLN NEB SCH (02:00)
[2018-09-27] MEDS ORDERED: IPRATROPIUM 0.5MG/ALBUTEROL 2.5MG INH SOL UD 3ML (DUONEB)(J7620) NEB SCH (02:00)
[2018-09-27 06:00] VITALS: BP 141/68
[2018-09-27] MEDS: LEVOTHYROXINE 50MCG TABLET (0.05MG) PO SCH (06:31)
[2018-09-27 06:40] LABS: HEMATOCRIT 34.7 % (36.0-47.0); MEAN CORPUSCULAR HGB CONC 30.5 g/dl (32.0-36.5); MEAN CORPUSCULAR VOLUME 91.6 fl (80.0-96.0); PLATELET COUNT, AUTOMATED 196 10^3/uL (150-450); RED BLOOD COUNT 3.79 10^6/uL (4.00-5.40)
[2018-09-27 06:51] LABS: HEMOGLOBIN 10.6 g/dl (12.0-15.5)
[2018-09-27 07:09] LABS: ALT/SGPT 24 U/L (12-78); BILIRUBIN,TOTAL 0.4 MG/DL (0.2-1.0); BLOOD UREA NITROGEN 5 MG/DL (7-18); CALCIUM LEVEL 8.2 MG/DL (8.8-10.2); CARBON DIOXIDE LEVEL 35 MEQ/L (21-32); CHLORIDE LEVEL 99 MEQ/L (98-107); CREATININE FOR GFR 0.67 MG/DL (0.55-1.30); GLOMERULAR FILTRATION RATE > 60.0 (>39); GLUCOSE, FASTING 206 MG/DL (70-100); POTASSIUM SERUM 3.5 MEQ/L (3.5-5.1); SODIUM LEVEL 139 MEQ/L (136-145)
[2018-09-27 07:10] LABS: ALBUMIN 2.5 GM/DL (3.2-5.2); NT-PRO BNP 473 PG/ML (<125); TOTAL PROTEIN 5.4 GM/DL (6.4-8.2)
[2018-09-27] MEDS: TIOTROPIUM INHALER/CAPSULE (SPIRIVA) INH SCH (07:29)
[2018-09-27] MEDS: HumaLOG INSULIN (NovoLOG) PER UNIT SC SCH ×4 (07:30→20:57)
[2018-09-27] MEDS: ADVAIR HFA 230/21MCG INHALER INH SCH (07:30)
[2018-09-27] MEDS ORDERED: METOPROLOL TART 25 MG TABLET PO SCH (09:00)
--- NOTE | 2018-09-27 09:19 | REP ---
Clinical: Shortness of breath. Comparison: 09/26/2018. Findings: Mediastinum and cardiac silhouette are stable. Diffuse chronic fibrosis throughout the bilateral lung jacome along with presumed post traumatic deformities to the right hemithorax remains stable. Surgical clips at the mediastinum/right hilum again noted. Subtle superimposed atelectasis cannot be excluded. No obvious new acute process appreciated when compared with prior examination. No effusion. No pneumothorax. Impression: Chronic stable changes. No obvious acute process although subtle superimposed atelectasis cannot be excluded. Electronically Signed by Ki Garcia MD 09/27/2018 09:12 A
[2018-09-27] MEDS: DOCUSATE SODIUM 100 MG CAP PO SCH ×2 (10:00→20:56)
[2018-09-27] MEDS: NICOTINE 14 MG/24 HR TRANSDERMAL TD SCH (10:00)
[2018-09-27] MEDS: FUROSEMIDE 40 MG TAB PO SCH (10:27)
[2018-09-27] MEDS: APIXABAN 5 MG TAB (ELIQUIS) PO SCH ×2 (10:27→20:56)
[2018-09-27] MEDS: FAMOTIDINE 20 MG TAB PO SCH (10:27)
[2018-09-27] MEDS: MAGNESIUM OXIDE 400 MG TAB (MAG-OX) PO SCH ×3 (10:27→20:57)
[2018-09-27] MEDS: ASPIRIN 81 MG ENTERIC TAB PO SCH (10:28)
[2018-09-27] MEDS: FEXOFENADINE 60 MG TAB PO SCH (10:28)
[2018-09-27] MEDS: FERROUS SULFATE 325MG TAB PO SCH (10:28)
[2018-09-27] MEDS: GABAPENTIN 300 MG CAP PO SCH ×4 (10:28→20:56)
[2018-09-27] MEDS: OMEPRAZOLE 20 MG CAP PO SCH (10:28)
[2018-09-27 14:00] VITALS: BP 126/58
--- NOTE | 2018-09-27 16:04 | IPNPDOC ---
Subjective Date Seen The patient was seen on 09/27/18. Subjective Chief Complaint/HPI dyspnea at baseline Constitutional: Denies: Chills Eyes: Denies: Pain ENT: Denies: Head Aches Skin: Denies: Rash Pulmonary: Denies: Dyspnea, Cough Cardiovascular: Denies: Chest Pain, Palpitations Gastrointestinal: Denies: Nausea, Vomiting Objective Physical Examination General Exam: Positive: Alert Eye Exam: Positive: PERRLA Neck Exam: Negative: JVD (R>L 2mm PTPE) Chest Exam: Positive: Diminished Abdomen Exam: Positive: Normal bowel sounds Extremity Exam: Positive: Edema Assessment /Plan Problems (1) Paroxysmal atrial fibrillation Status: Chronic Response to Treatment: Stable Problem Text: remains SR 70s on met tar 25 BID and ho 2:1 paroxysmal AF 09/2018 admitted c dig toxicity level 3.9/K 6.3 requiring Digibind (was used given inadequate rate control c borderline SBP on biso 5 BID, was on 250 QD) Contingency: dig 62 QD 09/27 increased to 25 TID, + mateusz 09/26 presented c AF symptomatic RVR at 120-converted c met 5 IV x 1 and met succ 50 (dig level was still 0.5) (2) Nicotine dependence Status: Chronic Problem Text: on 14 patch (3) DARSHAN on CPAP Status: Chronic Problem Text: using home CPAP (4) COPD (chronic obstructive pulmonary disease) Status: Chronic Problem Text: end stage chronic 2L O2 dependent on HD deepti/Advair (5) GERD (gastroesophageal reflux disease) Status: Chronic (6) IDDM (insulin dependent diabetes mellitus) Status: Chronic Problem Text: HD glar 60/44 09/26 restarted c SSLI (7) Systolic congestive heart failure Status: Chronic Response to Treatment: Stable Problem Text: Euvolemic on HD fur 40, MOX 800 TID 09/27 K 3.5; therefore, + mateusz 12.5 BID (2 hypoK, sCHF, pAF/AFl) 09/26 BNP 473-probably close to "dry" level 09/26 CTA chest -PE/chronic B ILD (8) Hypothyroid Status: Chronic Problem Text: 09/26 3.9/1.2 on LT4 50 (9) Physical deconditioning Status: Chronic Problem Text: 09/27 + PT, favor [facility] given very unstable/end-stage medical conditions (10) Chronic major depressive disorder Status: Chronic Problem Text: stable on HD venla 150 BID, traz 100 QHS Plan/VTE VTE Prophylaxis Ordered?: Yes VS, I&O, 24H, Gracie Vital Signs/I&O Vital Signs Date Time Temp Pulse Resp B/P (MAP) Pulse Ox O2 Delivery O2 Flow Rate FiO2 09/27/18 10:30 69 138/65 09/27/18 06:00 97.7 17 95 09/26/18 22:20 Nasal Cannula 2.0 I&O- Last 24 Hours up to 6 AM 09/27/18 06:00 Intake Total 0 ml Output Total 600 ml Balance -600 ml Laboratory Data 24H LABS Laboratory Tests 2 09/26/18 16:38: Immature Granulocyte % (Auto) 0.7, White Blood Count 11.7H, Red Blood Count 4.63, Hemoglobin 12.9, Hematocrit 41.6, Mean Corpuscular Volume 89.8, Mean Corpuscular Hemoglobin 27.9, Mean Corpuscular Hemoglobin Concent 31.0L, Red Cell Distribution Width 16.3H, Platelet Count 213, Neutrophils (%) (Auto) 79.7H, Lymphocytes (%) (Auto) 9.2L, Monocytes (%) (Auto) 7.3H, Eosinophils (%) (Auto) 2.7, Basophils (%) (Auto) 0.4, Neutrophils # (Auto) 9.3H, Lymphocytes # (Auto) 1.1L, Monocytes # (Auto) 0.9H, Eosinophils # (Auto) 0.3, Basophils # (Auto) 0.1, Nucleated Red Blood Cells % (auto) 0.0, Prothrombin Time 16.0H, Prothromb Time International Ratio 1.26, Activated Partial Thromboplast Time 38.3H, D-Dimer, Quantitative 675.95H, Anion Gap 6L, Glomerular Filtration Rate > 60.0, Calcium Level 8.5L, Aspartate Amino Transf (AST/SGOT) 20, Alanine Aminotransferase (ALT/SGPT) 31, Alkaline Phosphatase 161H, Total Bilirubin 0.5, Direct Bilirubin 0.2, Total Creatine Kinase 80, Creatine Kinase MB < 1.0, Creatine Kinase MB Relative Index 1.25, Troponin I < 0.02, Total Protein 6.2L, Albumin 3.2, Albumin/Globulin Ratio 1.07, Lipase 66L, Thyroid Stimulating Hormone (TSH) 3.900H, Free Thyroxine 1.22, Digoxin Level 0.5 09/26/18 16:44: Blood Gas Bicarbonate Standard 31.3H, Arterial Blood pH 7.490H, Arterial Blood Partial Pressure CO2 42.6, Arterial Blood Partial Pressure O2 65.4L, Arterial Blood Total CO2 33.0H, Arterial Blood HCO3 31.7H, Arterial Blood Base Excess 7.6H, Arterial Blood Oxygen Saturation 93.7L 09/26/18 18:25: Urine Color STRAW, Urine Appearance CLEAR, Urine pH 7.0, Urine Specific [place] 1.005, Urine Protein NEGATIVE, Urine Glucose (UA) NEGATIVE, Urine Ketones NEGATIVE, Urine Blood NEGATIVE, Urine Nitrite NEGATIVE, Urine Bilirubin NEGATIVE, Urine Urobilinogen 0.2, Urine Leukocyte Esterase NEGATIVE, Urine WBC (Auto) 1, Urine RBC (Auto) 2, Urine Hyaline Casts (Auto) 3, Urine Bacteria (Auto) 1+H, Urine Squamous Epithelial Cells 2, Urine Sperm (Auto) 09/26/18 23:30: Bedside Glucose (Misc Panel) 229H 09/27/18 06:14: Nucleated Red Blood Cells % (auto) 0.0, Anion Gap 5L, Glomerular Filtration Rate > 60.0, Blood Urea Nitrogen 5#L, Creatinine 0.67, Sodium Level 139, Potassium Level 3.5, Chloride Level 99, Carbon Dioxide Level 35H, Calcium Level 8.2L, Aspartate Amino Transf (AST/SGOT) 17, Alanine Aminotransferase (ALT/SGPT) 24, Alkaline Phosphatase 125H, Total Bilirubin 0.4, Total Protein 5.4L, Albumin 2.5#L, HU-Cod-B-Type Natriuretic Peptide 473H, Albumin/Globulin Ratio 0.86L 09/27/18 11:49: Bedside Glucose (Misc Panel) 241H CBC/BMP Laboratory Tests 09/26/18 16:38 Red Blood Count 4.63, Mean Corpuscular Volume 89.8, Mean Corpuscular Hemoglobin 27.9, Mean Corpuscular Hemoglobin Concent 31.0 L, Red Cell Distribution Width 1 6.3 H, Neutrophils (%) (Auto) 79.7 H, Lymphocytes (%) (Auto) 9.2 L, Monocytes (%) (Auto) 7.3 H, Eosinophils (%) (Auto) 2.7, Basophils (%) (Auto) 0.4, Neutrophils # (Auto) 9.3 H, Lymphocytes # (Auto) 1.1 L, Monocytes # (Auto) 0.9 H, Eosinophils # (Auto) 0.3, Basophils # (Auto) 0.1 09/27/18 06:14 Red Blood Count 3.79 L, Mean Corpuscular Volume 91.6, Mean Corpuscular Hemoglobin 28.0, Mean Corpuscular Hemoglobin Concent 30.5 L, Red Cell Distribution Width 16.4 H, Calcium Level 8.2 L, Aspartate Amino Transf (AST/SGOT) 17, Alanine Aminotransferase (ALT/SGPT) 24, Alkaline Phosphatase 125 H, Total Bilirubin 0.4, Total Protein 5.4 L, Albumin 2.5 #L Teja Franklin M.D. September 27, 2018 16:04
[2018-09-27] MEDS: METOPROLOL TART 25 MG TABLET PO SCH ×2 (16:53→20:57)
[2018-09-27] MEDS: SPIRONOLACTONE 12.5MG PER 1/2 TABLET PO SCH (17:49)
[2018-09-27] MEDS: TAMSULOSIN 0.4 MG CAP PO SCH (20:56)
[2018-09-27] MEDS: ATORVASTATIN 20 MG TAB PO SCH (20:56)
[2018-09-27] MEDS: traZODone 50 MG TAB PO SCH (20:56)
[2018-09-27] MEDS: ALLOPURINOL 100 MG TAB PO SCH (20:56)
[2018-09-27] MEDS: LEVEMIR (INSULIN DETEMIR) 1 UNITS/0.01ML SC SCH (20:58)
[2018-09-27] MEDS ORDERED: LEVEMIR (INSULIN DETEMIR) 1 UNITS/0.01ML SC SCH (21:00)
[2018-09-27 22:00] VITALS: BP 137/63
[2018-09-28] MEDS: LEVOTHYROXINE 50MCG TABLET (0.05MG) PO SCH (05:36)
[2018-09-28 06:00] VITALS: BP 111/52
[2018-09-28 06:54] LABS: BLOOD UREA NITROGEN 8 MG/DL (7-18); CALCIUM LEVEL 8.5 MG/DL (8.8-10.2); CARBON DIOXIDE LEVEL 32 MEQ/L (21-32); CHLORIDE LEVEL 96 MEQ/L (98-107); CREATININE FOR GFR 0.76 MG/DL (0.55-1.30); GLOMERULAR FILTRATION RATE > 60.0 (>39); GLUCOSE, FASTING 208 MG/DL (70-100); MAGNESIUM LEVEL 1.8 MG/DL (1.8-2.4); POTASSIUM SERUM 3.9 MEQ/L (3.5-5.1); SODIUM LEVEL 135 MEQ/L (136-145)
[2018-09-28] MEDS: ALBUTEROL SULFATE 2.5 MG/0.5 ML INH NEB SOLN NEB SCH ×2 (07:25→16:00)
[2018-09-28] MEDS: TIOTROPIUM INHALER/CAPSULE (SPIRIVA) INH SCH (07:25)
[2018-09-28] MEDS: ADVAIR HFA 230/21MCG INHALER INH SCH ×2 (07:25→20:15)
[2018-09-28] MEDS: HumaLOG INSULIN (NovoLOG) PER UNIT SC SCH ×4 (08:36→20:32)
[2018-09-28] MEDS: MAGNESIUM OXIDE 400 MG TAB (MAG-OX) PO SCH ×3 (08:37→21:34)
[2018-09-28] MEDS: LEVEMIR (INSULIN DETEMIR) 1 UNITS/0.01ML SC SCH ×2 (08:37→21:35)
[2018-09-28] MEDS: FERROUS SULFATE 325MG TAB PO SCH (08:37)
[2018-09-28] MEDS: FEXOFENADINE 60 MG TAB PO SCH (08:37)
[2018-09-28] MEDS: APIXABAN 5 MG TAB (ELIQUIS) PO SCH ×2 (08:37→21:33)
[2018-09-28] MEDS: OCUVITE 1 TAB PO SCH ×2 (08:37→21:33)
[2018-09-28] MEDS: OMEPRAZOLE 20 MG CAP PO SCH (08:37)
[2018-09-28] MEDS: VENLAFAXINE 37.5 MG TAB PO SCH ×2 (08:38→21:32)
[2018-09-28] MEDS: FUROSEMIDE 40 MG TAB PO SCH ×2 (08:38→21:33)
[2018-09-28] MEDS: SPIRONOLACTONE 12.5MG PER 1/2 TABLET PO SCH ×2 (08:38→16:07)
[2018-09-28] MEDS: ASPIRIN 81 MG ENTERIC TAB PO SCH (08:38)
[2018-09-28] MEDS: DOCUSATE SODIUM 100 MG CAP PO SCH ×2 (08:38→21:00)
[2018-09-28] MEDS: FAMOTIDINE 20 MG TAB PO SCH (08:38)
[2018-09-28] MEDS: METOPROLOL TART 25 MG TABLET PO SCH ×3 (08:39→21:34)
[2018-09-28] MEDS: GABAPENTIN 300 MG CAP PO SCH ×4 (08:39→21:34)
[2018-09-28] MEDS: NICOTINE 14 MG/24 HR TRANSDERMAL TD SCH (08:40)
[2018-09-28 11:26] LABS: BASO # 0.1 10^3/uL (0.0-0.2); BASO % 0.5 % (0.0-1.0); EOS # 0.5 10^3/uL (0.0-0.50); EOS % 4.7 % (0.0-3.0); HEMATOCRIT 34.1 % (36.0-47.0); HEMOGLOBIN 10.6 g/dl (12.0-15.5); LYMPH # 1.4 10^3/uL (1.5-4.5); LYMPH % 14.1 % (24.0-44.0); MEAN CORPUSCULAR HEMOGLOBIN 28.3 pg (27.0-33.0); MEAN CORPUSCULAR HGB CONC 31.1 g/dl (32.0-36.5); MEAN CORPUSCULAR VOLUME 90.9 fl (80.0-96.0); MONO # 0.8 10^3/uL (0.0-0.8); MONO % 8.1 % (0.0-5.0); NEUTROPHILS # 6.9 10^3/uL (1.8-7.7); NEUTROPHILS % 72.3 % (36.0-66.0); PLATELET COUNT, AUTOMATED 211 10^3/uL (150-450); RED BLOOD COUNT 3.75 10^6/uL (4.00-5.40); WHITE BLOOD COUNT 9.6 10^3/uL (4.0-10.0)
--- NOTE | 2018-09-28 12:15 | IPNPDOC ---
Subjective Date Seen The patient was seen on 09/28/18. Subjective Chief Complaint/HPI feels good - denies SOB Constitutional: Denies: Chills, Fever Pulmonary: Denies: Dyspnea, Cough Cardiovascular: Denies: Chest Pain, Palpitations Gastrointestinal: Denies: Nausea, Vomiting, Abdominal Pain, Diarrhea, Constipation Objective Physical Examination General Exam: Positive: Alert Eye Exam: Positive: PERRLA Neck Exam: Negative: JVD (R>L 2mm PTPE) Chest Exam: Positive: Diminished Heart Exam: Positive: Rate Normal, Irregular Rhythm Abdomen Exam: Positive: Normal bowel sounds Extremity Exam: Positive: Edema (2+ BL) Assessment /Plan Problems (1) Paroxysmal atrial fibrillation Status: Chronic Response to Treatment: Stable Problem Text: 09/28 remains SR 60s on met tar 25 BID and ho 2:1 paroxysmal AF 09/2018 admitted c dig toxicity level 3.9/K 6.3 requiring Digibind (was used given inadequate rate control c borderline SBP on biso 5 BID, was on 250 QD) Contingency: dig 62 QD 09/27 increased to 25 TID, + mateusz 09/26 presented c AF symptomatic RVR at 120-converted c met 5 IV x 1 and met succ 50 (dig level was still 0.5) (2) Systolic congestive heart failure Status: Chronic Response to Treatment: Stable Problem Text: 09/28 - Increased edema with signs of decompensation HD fur 40 QD and Spironolactone 12.5 BID, MOX 800 TID, Increase Furosemide to 40 BID 09/27 K 3.5; therefore, + mateusz 12.5 BID (2 hypoK, sCHF, pAF/AFl) 09/26 BNP 473-probably close to "dry" level 09/26 CTA chest -PE/chronic B ILD (3) Nicotine dependence Status: Chronic Problem Text: on 14 patch (4) DARSHAN on CPAP Status: Chronic Problem Text: using home CPAP (5) COPD (chronic obstructive pulmonary disease) Status: Chronic Problem Text: end stage chronic 2L O2 dependent on HD deepti/Advair (6) GERD (gastroesophageal reflux disease) Status: Chronic (7) IDDM (insulin dependent diabetes mellitus) Status: Chronic Problem Text: HD glar 60/44 09/26 restarted 30/20 c SSLI (8) Hypothyroid Status: Chronic Problem Text: 09/26 3.9/1.2 on LT4 50 (9) Physical deconditioning Status: Chronic Problem Text: 09/27 + PT, favor tc AH setting at [place] given very unstable/end- stage medical conditions (10) Chronic major depressive disorder Status: Chronic Problem Text: stable on HD venla 150 BID, traz 100 QHS Plan/VTE VTE Prophylaxis Ordered?: Yes Plan Patient seen and examined and chart reviewed. Case reviewed with RPA who docu mented encounter. Disposition Need to assure family has arrangements for someone to closely supervise and administer her meds - Her last admission with daniel tox was likely due to her confusion over meds and taking too much VS, I&O, 24H, Fishbone Vital Signs/I&O Vital Signs Date Time Temp Pulse Resp B/P (MAP) Pulse Ox O2 Delivery O2 Flow Rate FiO2 09/28/18 09:00 2.0 09/28/18 08:39 64 132/48 09/28/18 06:00 97.5 18 97 09/26/18 22:20 Nasal Cannula I&O- Last 24 Hours up to 6 AM 09/28/18 06:00 Intake Total 2550 ml Output Total 2150 ml Balance 400 ml Laboratory Data 24H LABS Laboratory Tests 2 09/27/18 16:39: Bedside Glucose (Misc Panel) 272H 09/27/18 20:26: Bedside Glucose (Misc Panel) 224H 09/28/18 06:09: Immature Granulocyte % (Auto) 0.3, White Blood Count 9.6, Red Blood Count 3.75L, Hemoglobin 10.6L, Hematocrit 34.1L, Mean Corpuscular Volume 90.9, Mean Corpuscular Hemoglobin 28.3, Mean Corpuscular Hemoglobin Concent 31.1L, Red Cell Distribution Width 16.3H, Platelet Count 211, Neutrophils (%) (Auto) 72.3H, Lymphocytes (%) (Auto) 14.1L, Monocytes (%) (Auto) 8.1H, Eosinophils (%) (Auto) 4.7H, Basophils (%) (Auto) 0.5, Neutrophils # (Auto) 6.9, Lymphocytes # (Auto) 1.4L, Monocytes # (Auto) 0.8, Eosinophils # (Auto) 0.5, Basophils # (Auto) 0.1, Nucleated Red Blood Cells % (auto) 0.0, Anion Gap 7L, Glomerular Filtration Rate > 60.0, Blood Urea Nitrogen 8#, Creatinine 0.76, Sodium Level 135L, Potassium Level 3.9, Chloride Level 96L, Carbon Dioxide Level 32, Calcium Level 8.5L, Magnesium Level 1.8 09/28/18 11:42: Bedside Glucose (Misc Panel) 269H CBC/BMP Laboratory Tests 09/28/18 06:09 Red Blood Count 3.75 L, Mean Corpuscular Volume 90.9, Mean Corpuscular Hemoglobin 28.3, Mean Corpuscular Hemoglobin Concent 31.1 L, Red Cell Distribution Width 16.3 H, Neutrophils (%) (Auto) 72.3 H, Lymphocytes (%) (Auto) 14.1 L, Monocytes (%) (Auto) 8.1 H, Eosinophils (%) (Auto) 4.7 H, Basophils (%) (Auto) 0.5, Neutrophils # (Auto) 6.9, Lymphocytes # (Auto) 1.4 L, Monocytes # (Auto) 0.8, Eosinophils # (Auto) 0.5, Basophils # (Auto) 0.1, Calcium Level 8.5 L DANA LANZA PA-C September 28, 2018 12:15 Josh Frank M.D. September 28, 2018 15:07
[2018-09-28 14:00] VITALS: BP 148/68
[2018-09-28] MEDS: TAMSULOSIN 0.4 MG CAP PO SCH (21:32)
[2018-09-28] MEDS: ALLOPURINOL 100 MG TAB PO SCH (21:33)
[2018-09-28] MEDS: traZODone 50 MG TAB PO SCH (21:33)
[2018-09-28] MEDS: ATORVASTATIN 20 MG TAB PO SCH (21:33)
[2018-09-28 22:00] VITALS: BP 148/58
[2018-09-29] MEDS: LEVOTHYROXINE 50MCG TABLET (0.05MG) PO SCH (05:58)
[2018-09-29 06:00] VITALS: BP 147/61
[2018-09-29 06:14] LABS: BASO # 0.1 10^3/uL (0.0-0.2); BASO % 0.6 % (0.0-1.0); EOS # 0.5 10^3/uL (0.0-0.50); EOS % 4.8 % (0.0-3.0); HEMOGLOBIN 10.8 g/dl (12.0-15.5); LYMPH # 1.4 10^3/uL (1.5-4.5); LYMPH % 12.6 % (24.0-44.0); MEAN CORPUSCULAR HEMOGLOBIN 28.1 pg (27.0-33.0); MEAN CORPUSCULAR HGB CONC 30.9 g/dl (32.0-36.5); MEAN CORPUSCULAR VOLUME 90.9 fl (80.0-96.0); MONO # 0.9 10^3/uL (0.0-0.8); MONO % 7.8 % (0.0-5.0); NEUTROPHILS # 8.1 10^3/uL (1.8-7.7); NEUTROPHILS % 73.6 % (36.0-66.0); PLATELET COUNT, AUTOMATED 207 10^3/uL (150-450); RED BLOOD COUNT 3.85 10^6/uL (4.00-5.40)
[2018-09-29 06:43] LABS: BLOOD UREA NITROGEN 10 MG/DL (7-18); CALCIUM LEVEL 8.4 MG/DL (8.8-10.2); CARBON DIOXIDE LEVEL 34 MEQ/L (21-32); CHLORIDE LEVEL 95 MEQ/L (98-107); CREATININE FOR GFR 0.88 MG/DL (0.55-1.30); GLOMERULAR FILTRATION RATE > 60.0 (>39); GLUCOSE, FASTING 259 MG/DL (70-100); SODIUM LEVEL 135 MEQ/L (136-145)
[2018-09-29] MEDS: TIOTROPIUM INHALER/CAPSULE (SPIRIVA) INH SCH (07:29)
[2018-09-29] MEDS: ALBUTEROL SULFATE 2.5 MG/0.5 ML INH NEB SOLN NEB SCH ×4 (07:31→22:53)
[2018-09-29] MEDS: NICOTINE 14 MG/24 HR TRANSDERMAL TD SCH (09:00)
[2018-09-29] MEDS: LEVEMIR (INSULIN DETEMIR) 1 UNITS/0.01ML SC SCH ×2 (09:29→21:44)
[2018-09-29] MEDS: HumaLOG INSULIN (NovoLOG) PER UNIT SC SCH ×4 (09:29→21:44)
[2018-09-29] MEDS: GABAPENTIN 300 MG CAP PO SCH ×4 (09:44→21:44)
[2018-09-29] MEDS: SPIRONOLACTONE 12.5MG PER 1/2 TABLET PO SCH ×2 (09:44→16:36)
[2018-09-29] MEDS: FEXOFENADINE 60 MG TAB PO SCH (09:44)
[2018-09-29] MEDS: VENLAFAXINE 37.5 MG TAB PO SCH (09:45)
[2018-09-29] MEDS: METOPROLOL TART 25 MG TABLET PO SCH ×3 (09:45→21:42)
[2018-09-29] MEDS: FUROSEMIDE 40 MG TAB PO SCH ×2 (09:45→21:43)
[2018-09-29] MEDS: FAMOTIDINE 20 MG TAB PO SCH (09:46)
[2018-09-29] MEDS: APIXABAN 5 MG TAB (ELIQUIS) PO SCH ×2 (09:46→21:43)
[2018-09-29] MEDS: MAGNESIUM OXIDE 400 MG TAB (MAG-OX) PO SCH ×3 (09:46→21:43)
[2018-09-29] MEDS: DOCUSATE SODIUM 100 MG CAP PO SCH ×2 (09:47→21:00)
[2018-09-29] MEDS: FERROUS SULFATE 325MG TAB PO SCH (09:47)
[2018-09-29] MEDS: ASPIRIN 81 MG ENTERIC TAB PO SCH (09:47)
[2018-09-29] MEDS: OCUVITE 1 TAB PO SCH ×2 (09:47→21:43)
[2018-09-29] MEDS: OMEPRAZOLE 20 MG CAP PO SCH (09:47)
--- NOTE | 2018-09-29 11:05 | IPNPDOC ---
Subjective Date Seen The patient was seen on 09/29/18. Subjective Chief Complaint/HPI no palpitations, no dyspnea. Constitutional: Denies: Chills ENT: Denies: Head Aches Pulmonary: Denies: Dyspnea, Cough Cardiovascular: Denies: Chest Pain, Palpitations Gastrointestinal: Denies: Nausea, Vomiting Genitourinary: Denies: Dysuria Endocrine: Denies: Polydipsia Neurological: Denies: Weakness, Numbness Psych: Reports: Mood Normal Objective Physical Examination General Exam: Positive: Alert Eye Exam: Positive: PERRLA Neck Exam: Negative: JVD (R>L 2mm PTPE) Chest Exam: Positive: Diminished (especially right (hx of lung surgery)) Heart Exam: Positive: Rate Normal, Irregular Rhythm Abdomen Exam: Positive: Normal bowel sounds Extremity Exam: Positive: Edema (2+ edema on right, trace left. patient states always swollen on right, not left. denies hx of dvt.) Skin Exam: Positive: Nl turgor and temperature Psych Exam: Positive: Mood NL Assessment /Plan Problems (1) Paroxysmal atrial fibrillation Status: Chronic Response to Treatment: Stable Problem Text: 09/29: rate controlled, sinus with frequent PAC noted. on metoprolol tartrate 25 tid. family understandably reluctant to take her home considering recent events w/o first arranging cardiology consult. 09/28 remains SR 60s on met tar 25 TID and ho 2:1 paroxysmal AF 09/2018 admitted c dig toxicity level 3.9/K 6.3 requiring Digibind (was used given inadequate rate control c borderline SBP on biso 5 BID, was on 250 QD) Contingency: dig 62 QD 09/27 increased to 25 TID, + mateusz 09/26 presented c AF symptomatic RVR at 120-converted c met 5 IV x 1 and met succ 50 (dig level was still 0.5) (2) Systolic congestive heart failure Status: Chronic Response to Treatment: Stable Problem Text: 09/29: 1700+ ml diuresis yesterday. 09/28 - Increased edema with signs of decompensation HD fur 40 QD and Spironolactone 12.5 BID, MOX 800 TID, Increase Furosemide to 40 BID 09/27 K 3.5; therefore, + mateusz 12.5 BID (2 hypoK, sCHF, pAF/AFl) 09/26 BNP 473-probably close to "dry" level 09/26 CTA chest -PE/chronic B ILD (3) Nicotine dependence Status: Chronic Problem Text: on 14 patch (4) DARSHAN on CPAP Status: Chronic Problem Text: using home CPAP (5) COPD (chronic obstructive pulmonary disease) Status: Chronic Problem Text: end stage chronic 2L O2 dependent on HD deepti/Advair (6) GERD (gastroesophageal reflux disease) Status: Chronic (7) IDDM (insulin dependent diabetes mellitus) Status: Chronic Problem Text: 09/29: glucoses still above 200. Increase basal insulin HD glar 60/09/26 restarted c SSLI (8) Hypothyroid Status: Chronic Problem Text: 09/26 3.9/1.2 on LT4 50 (9) Physical deconditioning Status: Chronic Problem Text: 09/27 + PT, favor tc AH setting at [place] given very unstable/end- stage medical conditions (10) Chronic major depressive disorder Status: Chronic Problem Text: stable on HD venla 150 BID, traz 100 QHS Plan/VTE VTE Prophylaxis Ordered?: Yes VS, I&O, 24H, Fishbone Vital Signs/I&O Vital Signs Date Time Temp Pulse Resp B/P (MAP) Pulse Ox O2 Delivery O2 Flow Rate FiO2 09/29/18 09:45 60 148/62 09/29/18 06:00 96.7 18 92 09/28/18 21:00 2.0 09/26/18 22:20 Nasal Cannula I&O- Last 24 Hours up to 6 AM 09/29/18 06:00 Intake Total 2295 ml Output Total 3500 ml Balance -1205 ml Laboratory Data 24H LABS Laboratory Tests 2 09/28/18 11:42: Bedside Glucose (Misc Panel) 269H 09/28/18 16:50: Bedside Glucose (Misc Panel) 227H 09/28/18 19:58: Bedside Glucose (Misc Panel) 208H 09/29/18 05:41: Immature Granulocyte % (Auto) 0.6, White Blood Count 11.0H, Red Blood Count 3.85L, Hemoglobin 10.8L, Hematocrit 35.0L, Mean Corpuscular Volume 90.9, Mean Corpuscular Hemoglobin 28.1, Mean Corpuscular Hemoglobin Concent 30.9L, Red Cell Distribution Width 16.0H, Platelet Count 207, Neutrophils (%) (Auto) 73.6H, Lymphocytes (%) (Auto) 12.6L, Monocytes (%) (Auto) 7.8H, Eosinophils (%) (Auto) 4.8H, Basophils (%) (Auto) 0.6, Neutrophils # (Auto) 8.1H, Lymphocytes # (Auto) 1.4L, Monocytes # (Auto) 0.9H, Eosinophils # (Auto) 0.5, Basophils # (Auto) 0.1, Nucleated Red Blood Cells % (auto) 0.0, Anion Gap 6L, Glomerular Filtration Rate > 60.0, Blood Urea Nitrogen 10, Creatinine 0.88, Sodium Level 135L, Potassium Level 4.0, Chloride Level 95L, Carbon Dioxide Level 34H, Calcium Level 8.4L CBC/BMP Laboratory Tests 09/29/18 05:41 Red Blood Count 3.85 L, Mean Corpuscular Volume 90.9, Mean Corpuscular Hemoglobin 28.1, Mean Corpuscular Hemoglobin Concent 30.9 L, Red Cell Distribution Width 16.0 H, Neutrophils (%) (Auto) 73.6 H, Lymphocytes (%) (Auto) 12.6 L, Monocytes (%) (Auto) 7.8 H, Eosinophils (%) (Auto) 4.8 H, Basophils (%) (Auto) 0.6, Neutrophils # (Auto) 8.1 H, Lymphocytes # (Auto) 1.4 L, Monocytes # (Auto) 0.9 H, Eosinophils # (Auto) 0.5, Basophils # (Auto) 0.1, Calcium Level 8.4 L Ed Kc MD September 29, 2018 11:05
[2018-09-29 14:00] VITALS: BP 145/65
[2018-09-29] MEDS: TAMSULOSIN 0.4 MG CAP PO SCH (21:42)
[2018-09-29] MEDS: ATORVASTATIN 20 MG TAB PO SCH (21:43)
[2018-09-29] MEDS: ALLOPURINOL 100 MG TAB PO SCH (21:43)
[2018-09-29] MEDS: traZODone 50 MG TAB PO SCH (21:43)
[2018-09-29 22:00] VITALS: BP 148/59
[2018-09-30 06:00] VITALS: BP 169/62
[2018-09-30 06:14] LABS: BASO # 0.1 10^3/uL (0.0-0.2); BASO % 0.7 % (0.0-1.0); EOS # 0.5 10^3/uL (0.0-0.50); EOS % 5.3 % (0.0-3.0); HEMATOCRIT 35.2 % (36.0-47.0); HEMOGLOBIN 10.7 g/dl (12.0-15.5); LYMPH # 1.3 10^3/uL (1.5-4.5); LYMPH % 13.8 % (24.0-44.0); MEAN CORPUSCULAR HEMOGLOBIN 27.1 pg (27.0-33.0); MEAN CORPUSCULAR HGB CONC 30.4 g/dl (32.0-36.5); MEAN CORPUSCULAR VOLUME 89.1 fl (80.0-96.0); MONO # 0.9 10^3/uL (0.0-0.8); NEUTROPHILS # 6.7 10^3/uL (1.8-7.7); NEUTROPHILS % 70.7 % (36.0-66.0); PLATELET COUNT, AUTOMATED 207 10^3/uL (150-450); RED BLOOD COUNT 3.95 10^6/uL (4.00-5.40); WHITE BLOOD COUNT 9.4 10^3/uL (4.0-10.0)
[2018-09-30] MEDS: LEVOTHYROXINE 50MCG TABLET (0.05MG) PO SCH (06:23)
[2018-09-30 06:29] LABS: BLOOD UREA NITROGEN 12 MG/DL (7-18); CALCIUM LEVEL 8.5 MG/DL (8.8-10.2); CARBON DIOXIDE LEVEL 35 MEQ/L (21-32); CHLORIDE LEVEL 96 MEQ/L (98-107); CREATININE FOR GFR 0.94 MG/DL (0.55-1.30); GLOMERULAR FILTRATION RATE > 60.0 (>39); GLUCOSE, FASTING 253 MG/DL (70-100); POTASSIUM SERUM 4.1 MEQ/L (3.5-5.1); SODIUM LEVEL 136 MEQ/L (136-145)
[2018-09-30] MEDS: TIOTROPIUM INHALER/CAPSULE (SPIRIVA) INH SCH (07:37)
[2018-09-30] MEDS: ALBUTEROL SULFATE 2.5 MG/0.5 ML INH NEB SOLN NEB SCH ×3 (07:38→23:35)
[2018-09-30] MEDS: ADVAIR HFA 230/21MCG INHALER INH SCH (07:38)
[2018-09-30] MEDS: FEXOFENADINE 60 MG TAB PO SCH (08:50)
[2018-09-30] MEDS: OCUVITE 1 TAB PO SCH ×2 (08:50→20:29)
[2018-09-30] MEDS: FAMOTIDINE 20 MG TAB PO SCH (08:50)
[2018-09-30] MEDS: APIXABAN 5 MG TAB (ELIQUIS) PO SCH ×2 (08:50→20:29)
[2018-09-30] MEDS: FERROUS SULFATE 325MG TAB PO SCH (08:50)
[2018-09-30] MEDS: SPIRONOLACTONE 12.5MG PER 1/2 TABLET PO SCH ×2 (08:50→16:44)
[2018-09-30] MEDS: FUROSEMIDE 40 MG TAB PO SCH ×2 (08:51→20:29)
[2018-09-30] MEDS: DOCUSATE SODIUM 100 MG CAP PO SCH ×2 (08:51→20:30)
[2018-09-30] MEDS: MAGNESIUM OXIDE 400 MG TAB (MAG-OX) PO SCH ×3 (08:51→20:29)
[2018-09-30] MEDS: GABAPENTIN 300 MG CAP PO SCH ×4 (08:51→20:30)
[2018-09-30] MEDS: OMEPRAZOLE 20 MG CAP PO SCH (08:51)
[2018-09-30] MEDS: ASPIRIN 81 MG ENTERIC TAB PO SCH (08:51)
[2018-09-30] MEDS: METOPROLOL SUCC *XL* 25MG TAB (TopROL *XL*) PO SCH (08:52)
[2018-09-30] MEDS: LEVEMIR (INSULIN DETEMIR) 1 UNITS/0.01ML SC SCH ×2 (08:53→20:31)
[2018-09-30] MEDS: NICOTINE 14 MG/24 HR TRANSDERMAL TD SCH (08:53)
[2018-09-30] MEDS: HumaLOG INSULIN (NovoLOG) PER UNIT SC SCH ×4 (08:53→20:30)
--- NOTE | 2018-09-30 08:53 | IPNPDOC ---
Subjective Date Seen The patient was seen on 09/30/18. Subjective Chief Complaint/HPI afib with RVR Events since last encounter Plans on starting Toprol XL this am 75 mg. HR has been stable. Family member concerned about swelling of BLE and cornelio discoloration to RLE. Afebrile. On baseline oxygen needs at home. Pulmonary: Denies: Dyspnea, Cough Cardiovascular: Reports: Edema; Denies: Chest Pain, Palpitations, Orthopnea, Paroxysmal Noc. Dyspnea, Lt Headedness Gastrointestinal: Denies: Nausea, Vomiting, Abdominal Pain, Diarrhea, Constipation Genitourinary: Denies: Dysuria, Frequency, Incontinence, Retention Psych: Reports: Mood Normal; Denies: Depression, Memory Issues Objective Physical Examination General Exam: Positive: Alert Eye Exam: Positive: PERRLA Neck Exam: Negative: JVD (R>L 2mm PTPE) Chest Exam: Positive: Diminished (especially right (hx of lung surgery)) Heart Exam: Positive: Rate Normal, Irregular Rhythm Abdomen Exam: Positive: Normal bowel sounds Extremity Exam: Positive: Edema (2+ edema BLE R>L. mild erythema to RLE) Skin Exam: Positive: Nl turgor and temperature Psych Exam: Positive: Mood NL Assessment /Plan Problems (1) Paroxysmal atrial fibrillation Status: Chronic Response to Treatment: Stable Problem Text: 09/30/18: Toprol XL 75 mg po daily. monitor HR. 09/29: rate controlled, sinus with frequent PAC noted. on metoprolol tartrate 25 tid. family understandably reluctant to take her home considering recent events w/o first arranging cardiology consult. 09/28 remains SR 60s on met tar 25 TID and ho 2:1 paroxysmal AF 09/2018 admitted c dig toxicity level 3.9/K 6.3 requiring Digibind (was used given inadequate rate control c borderline SBP on biso 5 BID, was on 250 QD) Contingency: dig 62 QD 09/27 increased to 25 TID, + mateuzs 09/26 presented c AF symptomatic RVR at 120-converted c met 5 IV x 1 and met succ 50 (dig level was still 0.5) (2) Systolic congestive heart failure Status: Chronic Response to Treatment: Stable Problem Text: 09/30/18: EF of 75% on echo from 07/2018. BLE edema. will r/o DVT due to increased edema and swelling of RLE. Teds encouraged 09/29: 1700+ ml diuresis yesterday. 09/28 - Increased edema with signs of decompensation HD fur 40 QD and Spironolactone 12.5 BID, MOX 800 TID, Increase Furosemide to 40 BID 09/27 K 3.5; therefore, + mateusz 12.5 BID (2 hypoK, sCHF, pAF/AFl) 09/26 BNP 473-probably close to "dry" level 09/26 CTA chest -PE/chronic B ILD (3) Nicotine dependence Status: Chronic Problem Text: on 14 patch (4) DARSHAN on CPAP Status: Chronic Problem Text: using home CPAP (5) COPD (chronic obstructive pulmonary disease) Status: Chronic Problem Text: end stage chronic 2L O2 dependent on HD deepti/Advair (6) GERD (gastroesophageal reflux disease) Status: Chronic (7) IDDM (insulin dependent diabetes mellitus) Status: Chronic Problem Text: 09/29: glucoses still above 200. Increase basal insulin HD glar 60/44 09/26 restarted c SSLI (8) Hypothyroid Status: Chronic Problem Text: 09/26 3.9/1.2 on LT4 50 (9) Physical deconditioning Status: Chronic Problem Text: 09/30/18: family not in agreement with 25/11 care. will review with PFS/PT. 09/27 + PT, [place]c setting [place] given very unstable/end-stage medical conditions (10) Chronic major depressive disorder Status: Chronic Problem Text: stable on HD venla 150 BID, traz 100 QHS Plan/VTE VTE Prophylaxis Ordered?: Yes VS, I&O, 24H, Fishbone Vital Signs/I&O Vital Signs Date Time Temp Pulse Resp B/P (MAP) Pulse Ox O2 Delivery O2 Flow Rate FiO2 09/30/18 06:00 97.9 98 18 169/62 (97) 94 2.0 09/26/18 22:20 Nasal Cannula I&O- Last 24 Hours up to 6 AM 09/30/18 06:00 Intake Total 3565 ml Output Total 3050 ml Balance 515 ml Laboratory Data 24H LABS Laboratory Tests 2 09/29/18 11:58: Bedside Glucose (Misc Panel) 322H 09/29/18 17:20: Bedside Glucose (Misc Panel) 244H 09/29/18 21:20: Bedside Glucose (Misc Panel) 256H 09/30/18 05:48: Immature Granulocyte % (Auto) 0.5, White Blood Count 9.4, Red Blood Count 3.95L, Hemoglobin 10.7L, Hematocrit 35.2L, Mean Corpuscular Volume 89.1, Mean Corpuscular Hemoglobin 27.1, Mean Corpuscular Hemoglobin Concent 30.4L, Red Cell Distribution Width 16.0H, Platelet Count 207, Neutrophils (%) (Auto) 70.7H, Lymphocytes (%) (Auto) 13.8L, Monocytes (%) (Auto) 9.0H, Eosinophils (%) (Auto) 5.3H, Basophils (%) (Auto) 0.7, Neutrophils # (Auto) 6.7, Lymphocytes # (Auto) 1.3L, Monocytes # (Auto) 0.9H, Eosinophils # (Auto) 0.5, Basophils # (Auto) 0.1, Nucleated Red Blood Cells % (auto) 0.0, Anion Gap 5L, Glomerular Filtration Rate > 60.0, Blood Urea Nitrogen 12, Creatinine 0.94, Sodium Level 136, Potassium Level 4.1, Chloride Level 96L, Carbon Dioxide Level 35H, Calcium Level 8.5L CBC/BMP Laboratory Tests 09/30/18 05:48 Red Blood Count 3.95 L, Mean Corpuscular Volume 89.1, Mean Corpuscular Hemo globin 27.1, Mean Corpuscular Hemoglobin Concent 30.4 L, Red Cell Distribution Width 16.0 H, Neutrophils (%) (Auto) 70.7 H, Lymphocytes (%) (Auto) 13.8 L, Monocytes (%) (Auto) 9.0 H, Eosinophils (%) (Auto) 5.3 H, Basophils (%) (Auto) 0.7, Neutrophils # (Auto) 6.7, Lymphocytes # (Auto) 1.3 L, Monocytes # (Auto) 0.9 H, Eosinophils # (Auto) 0.5, Basophils # (Auto) 0.1, Calcium Level 8.5 L Diana Link September 30, 2018 08:53 Ed Kc MD September 30, 2018 11:10
[2018-09-30 14:00] VITALS: BP 143/59
--- NOTE | 2018-09-30 18:48 | REP ---
Clinical: Right lower extremity pain and swelling . Technique: Hughes scale and color Doppler evaluation using linear high frequency transducer. Findings: Ultrasound examination of the right lower extremity deep venous structures from the common femoral vein to the popliteal vein demonstrates normal compressibility flow and wave patterns in response to respiration and augmentation. There is no evidence for deep venous thrombosis. Diffuse subcutaneous edema is appreciated. Impression: No evidence for deep venous thrombosis. Diffuse subcutaneous edema. Electronically Signed by Ki Garcia MD 09/30/2018 06:40 P
[2018-09-30] MEDS: ATORVASTATIN 20 MG TAB PO SCH (20:28)
[2018-09-30] MEDS: ALLOPURINOL 100 MG TAB PO SCH (20:29)
[2018-09-30] MEDS: traZODone 50 MG TAB PO SCH (20:29)
[2018-09-30] MEDS: TAMSULOSIN 0.4 MG CAP PO SCH (20:30)
[2018-09-30 22:00] VITALS: BP 143/59
[2018-10-01] MEDS: LEVOTHYROXINE 50MCG TABLET (0.05MG) PO SCH (05:40)
[2018-10-01 06:00] VITALS: BP 144/53
[2018-10-01 06:33] LABS: BASO # 0.1 10^3/uL (0.0-0.2); BASO % 0.6 % (0.0-1.0); EOS # 0.5 10^3/uL (0.0-0.50); EOS % 4.8 % (0.0-3.0); HEMATOCRIT 37.1 % (36.0-47.0); HEMOGLOBIN 11.2 g/dl (12.0-15.5); LYMPH # 1.1 10^3/uL (1.5-4.5); MEAN CORPUSCULAR HEMOGLOBIN 27.6 pg (27.0-33.0); MEAN CORPUSCULAR HGB CONC 30.2 g/dl (32.0-36.5); MEAN CORPUSCULAR VOLUME 91.4 fl (80.0-96.0); MONO # 0.6 10^3/uL (0.0-0.8); MONO % 6.6 % (0.0-5.0); NEUTROPHILS # 7.1 10^3/uL (1.8-7.7); NEUTROPHILS % 75.4 % (36.0-66.0); PLATELET COUNT, AUTOMATED 211 10^3/uL (150-450); RED BLOOD COUNT 4.06 10^6/uL (4.00-5.40); WHITE BLOOD COUNT 9.4 10^3/uL (4.0-10.0)
[2018-10-01 06:56] LABS: BLOOD UREA NITROGEN 13 MG/DL (7-18); CALCIUM LEVEL 8.8 MG/DL (8.8-10.2); CARBON DIOXIDE LEVEL 37 MEQ/L (21-32); CHLORIDE LEVEL 99 MEQ/L (98-107); CREATININE FOR GFR 0.88 MG/DL (0.55-1.30); GLOMERULAR FILTRATION RATE > 60.0 (>39); GLUCOSE, FASTING 262 MG/DL (70-100); POTASSIUM SERUM 3.9 MEQ/L (3.5-5.1); SODIUM LEVEL 138 MEQ/L (136-145)
[2018-10-01] MEDS: SPIRONOLACTONE 12.5MG PER 1/2 TABLET PO SCH ×2 (07:35→16:07)
[2018-10-01] MEDS: HumaLOG INSULIN (NovoLOG) PER UNIT SC SCH ×4 (07:35→21:39)
[2018-10-01] MEDS: DOCUSATE SODIUM 100 MG CAP PO SCH ×3 (07:35→20:52)
[2018-10-01] MEDS: FERROUS SULFATE 325MG TAB PO SCH (07:36)
[2018-10-01] MEDS: FUROSEMIDE 40 MG TAB PO SCH ×2 (07:36→20:51)
[2018-10-01] MEDS: MAGNESIUM OXIDE 400 MG TAB (MAG-OX) PO SCH ×3 (07:36→20:52)
[2018-10-01] MEDS: OCUVITE 1 TAB PO SCH ×2 (07:36→20:52)
[2018-10-01] MEDS: APIXABAN 5 MG TAB (ELIQUIS) PO SCH ×2 (07:36→20:51)
[2018-10-01] MEDS: FEXOFENADINE 60 MG TAB PO SCH (07:36)
[2018-10-01] MEDS: ASPIRIN 81 MG ENTERIC TAB PO SCH (07:36)
[2018-10-01] MEDS: OMEPRAZOLE 20 MG CAP PO SCH (07:37)
[2018-10-01] MEDS: METOPROLOL SUCC *XL* 25MG TAB (TopROL *XL*) PO SCH (07:37)
[2018-10-01] MEDS: GABAPENTIN 300 MG CAP PO SCH ×4 (07:37→20:51)
[2018-10-01] MEDS: FAMOTIDINE 20 MG TAB PO SCH (07:37)
[2018-10-01] MEDS: LEVEMIR (INSULIN DETEMIR) 1 UNITS/0.01ML SC SCH ×2 (07:38→21:38)
[2018-10-01] MEDS: NICOTINE 14 MG/24 HR TRANSDERMAL TD SCH (07:38)
--- NOTE | 2018-10-01 08:52 | IPNPDOC ---
Subjective Date Seen The patient was seen on 10/01/18. Subjective Chief Complaint/HPI afib with RVR Events since last encounter US negative for DVT. RLE swelling decreased. -2+ liters on I/O. Declines stockings. non-compliant with fluid restriction. Constitutional: Denies: Chills, Fever, Night Sweats Pulmonary: Reports: Dyspnea (baseline); Denies: Cough Gastrointestinal: Denies: Nausea, Vomiting, Abdominal Pain, Diarrhea, Constipation Genitourinary: Denies: Dysuria, Frequency, Incontinence, Retention Objective Physical Examination General Exam: Positive: Alert Eye Exam: Positive: PERRLA Neck Exam: Negative: JVD (R>L 2mm PTPE) Chest Exam: Positive: Diminished (especially right (hx of lung surgery)) Heart Exam: Positive: Rate Normal, Irregular Rhythm Abdomen Exam: Positive: Normal bowel sounds Extremity Exam: Positive: Edema (1-2+ edema BLE R>L. mild erythema to RLE) Skin Exam: Positive: Nl turgor and temperature Psych Exam: Positive: Mood NL Assessment /Plan Problems (1) Paroxysmal atrial fibrillation Status: Chronic Response to Treatment: Stable Problem Text: 09/30/18: Toprol XL 75 mg po daily. monitor HR. 09/29: rate controlled, sinus with frequent PAC noted. on metoprolol tartrate 25 tid. family understandably reluctant to take her home considering recent events w/o first arranging cardiology consult. 09/28 remains SR 60s on met tar 25 TID and ho 2:1 paroxysmal AF 09/2018 admitted c dig toxicity level 3.9/K 6.3 requiring Digibind (was used given inadequate rate control c borderline SBP on biso 5 BID, was on 250 QD) Contingency: dig 62 QD 09/27 increased to 25 TID, + mateusz 09/26 presented c AF symptomatic RVR at 120-converted c met 5 IV x 1 and met succ 50 (dig level was still 0.5) (2) Systolic congestive heart failure Status: Chronic Response to Treatment: Stable Problem Text: 10/01/18: edema most likely related to PVD. encouraged ot elevate legs and wear compression stockings. anticipate DC home tomorrow if leg remains stable. 09/30/18: EF of 75% on echo from 07/2018. BLE edema. will r/o DVT due to increased edema and swelling of RLE. Teds encouraged 09/29: 1700+ ml diuresis yesterday. 09/28 - Increased edema with signs of decompensation HD fur 40 QD and Spironolactone 12.5 BID, MOX 800 TID, Increase Furosemide to 40 BID 09/27 K 3.5; therefore, + mateusz 12.5 BID (2 hypoK, sCHF, pAF/AFl) 09/26 BNP 473-probably close to "dry" level 09/26 CTA chest -PE/chronic B ILD (3) Nicotine dependence Status: Chronic Problem Text: on 14 patch (4) DARSHAN on CPAP Status: Chronic Problem Text: using home CPAP (5) COPD (chronic obstructive pulmonary disease) Status: Chronic Problem Text: end stage chronic 2L O2 dependent on HD deepti/Advair (6) GERD (gastroesophageal reflux disease) Status: Chronic (7) IDDM (insulin dependent diabetes mellitus) Status: Chronic Problem Text: 09/29: glucoses still above 200. Increase basal insulin HD glar 60/44 09/26 restarted c SSLI (8) Hypothyroid Status: Chronic Problem Text: 09/26 3.9/1.2 on LT4 50 (9) Physical deconditioning Status: Chronic Problem Text: 09/30/18: family not in agreement with 25/11 care. will review with PFS/PT. 09/27 + PT, [place]c setting [place] given very unstable/end-stage medical conditions (10) Chronic major depressive disorder Status: Chronic Problem Text: stable on HD venla 150 BID, traz 100 QHS Plan/VTE VTE Prophylaxis Ordered?: Yes VS, I&O, 24H, Fishbone Vital Signs/I&O Vital Signs Date Time Temp Pulse Resp B/P (MAP) Pulse Ox O2 Delivery O2 Flow Rate FiO2 10/01/18 07:37 71 144/53 10/01/18 06:00 97.4 17 95 2.0 09/26/18 22:20 Nasal Cannula I&O- Last 24 Hours up to 6 AM 10/01/18 06:00 Intake Total 1620 ml Output Total 3550 ml Balance -1930 ml Laboratory Data 24H LABS Laboratory Tests 2 09/30/18 20:10: Bedside Glucose (Misc Panel) 295H 10/01/18 05:56: Immature Granulocyte % (Auto) 0.6, White Blood Count 9.4, Red Blood Count 4.06, Hemoglobin 11.2L, Hematocrit 37.1, Mean Corpuscular Volume 91.4, Mean Corpuscular Hemoglobin 27.6, Mean Corpuscular Hemoglobin Concent 30.2L, Red Cell Distribution Width 15.8H, Platelet Count 211, Neutrophils (%) (Auto) 75.4H, Lymphocytes (%) (Auto) 12.0L, Monocytes (%) (Auto) 6.6H, Eosinophils (%) (Auto) 4.8H, Basophils (%) (Auto) 0.6, Neutrophils # (Auto) 7.1, Lymphocytes # (Auto) 1.1L, Monocytes # (Auto) 0.6, Eosinophils # (Auto) 0.5, Basophils # (Auto) 0.1, Nucleated Red Blood Cells % (auto) 0.0, Anion Gap 2L, Glomerular Filtration Rate > 60.0, Blood Urea Nitrogen 13, Creatinine 0.88, Sodium Level 138, Potassium Level 3.9, Chloride Level 99, Carbon Dioxide Level 37H, Calcium Level 8.8 CBC/BMP Laboratory Tests 10/01/18 05:56 Red Blood Count 4.06, Mean Corpuscular Volume 91.4, Mean Corpuscular Hemoglobin 27.6, Mean Corpuscular Hemoglobin Concent 30.2 L, Red Cell Distribution Width 15.8 H, Neutrophils (%) (Auto) 75.4 H, Lymphocytes (%) (Auto) 12.0 L, Monocytes (%) (Auto) 6.6 H, Eosinophils (%) (Auto) 4.8 H, Basophils (%) (Auto) 0.6, Neutrophils # (Auto) 7.1, Lymphocytes # (Auto) 1.1 L, Monocytes # (Auto) 0.6, Eosinophils # (Auto) 0.5, Basophils # (Auto) 0.1, Calcium Level 8.8 Attending Note Attending Note will stop tele since ready for d/c. stasis dermatitis is concern for family. efforts to aid by use of compression stockings are not successful since patient refuses them. need to avoid over vigorous diuresis since she does have moderately elevated pulmonary pressures on echo from July. Diana Link October 01, 2018 08:52 Ed Kc MD October 01, 2018 11:20
[2018-10-01] MEDS: ALBUTEROL SULFATE 2.5 MG/0.5 ML INH NEB SOLN NEB SCH ×2 (10:25→15:12)
[2018-10-01] MEDS: TIOTROPIUM INHALER/CAPSULE (SPIRIVA) INH SCH (10:26)
[2018-10-01] MEDS: ADVAIR HFA 230/21MCG INHALER INH SCH (10:26)
[2018-10-01 14:00] VITALS: BP 133/60
[2018-10-01] MEDS: ALLOPURINOL 100 MG TAB PO SCH (20:51)
[2018-10-01] MEDS: TAMSULOSIN 0.4 MG CAP PO SCH (20:51)
[2018-10-01] MEDS: ATORVASTATIN 20 MG TAB PO SCH (20:52)
[2018-10-01] MEDS: traZODone 50 MG TAB PO SCH (20:52)
[2018-10-01 22:00] VITALS: BP 149/61
[2018-10-02] MEDS: LEVOTHYROXINE 50MCG TABLET (0.05MG) PO SCH (05:31)
[2018-10-02 06:00] VITALS: BP 133/63
[2018-10-02 06:27] LABS: BASO # 0.1 10^3/uL (0.0-0.2); BASO % 0.6 % (0.0-1.0); EOS # 0.5 10^3/uL (0.0-0.50); EOS % 5.4 % (0.0-3.0); HEMOGLOBIN 11.2 g/dl (12.0-15.5); LYMPH # 1.1 10^3/uL (1.5-4.5); LYMPH % 13.1 % (24.0-44.0); MEAN CORPUSCULAR HEMOGLOBIN 27.6 pg (27.0-33.0); MEAN CORPUSCULAR HGB CONC 30.3 g/dl (32.0-36.5); MEAN CORPUSCULAR VOLUME 91.1 fl (80.0-96.0); MONO # 0.8 10^3/uL (0.0-0.8); MONO % 8.8 % (0.0-5.0); NEUTROPHILS # 6.2 10^3/uL (1.8-7.7); NEUTROPHILS % 71.4 % (36.0-66.0); PLATELET COUNT, AUTOMATED 203 10^3/uL (150-450); RED BLOOD COUNT 4.06 10^6/uL (4.00-5.40); WHITE BLOOD COUNT 8.7 10^3/uL (4.0-10.0)
[2018-10-02 06:48] LABS: BLOOD UREA NITROGEN 15 MG/DL (7-18); CALCIUM LEVEL 9.2 MG/DL (8.8-10.2); CARBON DIOXIDE LEVEL 37 MEQ/L (21-32); CHLORIDE LEVEL 99 MEQ/L (98-107); CREATININE FOR GFR 0.91 MG/DL (0.55-1.30); GLOMERULAR FILTRATION RATE > 60.0 (>39); GLUCOSE, FASTING 260 MG/DL (70-100); SODIUM LEVEL 140 MEQ/L (136-145)
[2018-10-02] MEDS: ALBUTEROL SULFATE 2.5 MG/0.5 ML INH NEB SOLN NEB SCH ×2 (07:58)
[2018-10-02] MEDS: TIOTROPIUM INHALER/CAPSULE (SPIRIVA) INH SCH (07:58)
[2018-10-02] MEDS: ADVAIR HFA 230/21MCG INHALER INH SCH (07:59)
[2018-10-02] MEDS: FEXOFENADINE 60 MG TAB PO SCH (08:42)
[2018-10-02 08:43] VITALS: BP 140/60
[2018-10-02] MEDS: SPIRONOLACTONE 12.5MG PER 1/2 TABLET PO SCH (08:43)
[2018-10-02] MEDS: METOPROLOL SUCC *XL* 25MG TAB (TopROL *XL*) PO SCH (08:43)
[2018-10-02] MEDS: MAGNESIUM OXIDE 400 MG TAB (MAG-OX) PO SCH (08:43)
[2018-10-02] MEDS: FAMOTIDINE 20 MG TAB PO SCH (08:43)
[2018-10-02] MEDS: FUROSEMIDE 40 MG TAB PO SCH (08:43)
[2018-10-02] MEDS: DOCUSATE SODIUM 100 MG CAP PO SCH (08:43)
[2018-10-02] MEDS: APIXABAN 5 MG TAB (ELIQUIS) PO SCH (08:44)
[2018-10-02] MEDS: ASPIRIN 81 MG ENTERIC TAB PO SCH (08:44)
[2018-10-02] MEDS: FERROUS SULFATE 325MG TAB PO SCH (08:44)
[2018-10-02] MEDS: OCUVITE 1 TAB PO SCH (08:44)
[2018-10-02] MEDS: OMEPRAZOLE 20 MG CAP PO SCH (08:44)
[2018-10-02] MEDS: GABAPENTIN 300 MG CAP PO SCH (08:44)
[2018-10-02] MEDS: NICOTINE 14 MG/24 HR TRANSDERMAL TD SCH (08:45)
[2018-10-02] MEDS: HumaLOG INSULIN (NovoLOG) PER UNIT SC SCH (08:45)
[2018-10-02] MEDS: LEVEMIR (INSULIN DETEMIR) 1 UNITS/0.01ML SC SCH (08:45)
[2018-10-02] MEDS ORDERED: METO1TAB32 PO ×2 (10:19→10:21)
[2018-10-02] MEDS ORDERED: FURO40TA2 PO (10:19)
[2018-10-02] MEDS ORDERED: ALDA25TA2 PO (10:19)
--- NOTE | 2018-10-02 18:24 | DSES ---
DATE OF ADMISSION: 09/26/2018 DATE OF DISCHARGE: 10/02/2018 BRIEF HISTORY AND PHYSICAL: The patient is a 73-year-old patient of Ness Galan who presented the emergency room complaining of a 1-day history of tachycardia and shortness of breath with increased confusion. Her rate was measured at home and was 130-140, and she was more confused with increased shortness of breath while walking. She was discharged from the hospital 2 days prior after being admitted for digoxin toxicity and acute renal failure. Her digoxin was held as well as her other heart rate control medications, because she had significant bradycardia, and so her diuretics were cut back to 40 mg once a day due to acute renal failure. In the emergency room, the patient was found to be in atrial fibrillation with rapid ventricular response (RVR), given Toprol 5 mg intravenous (IV) metoprolol 50 mg by mouth. Heart rate slowed down to the 80s. PAST MEDICAL HISTORY: 1. Hypertension. 2. Chronic kidney disease, stage III. 3. Systolic congestive heart failure with ejection fraction 35%. 4. Hyperlipidemia. 5. Oxygen-dependent chronic obstructive pulmonary disease (COPD), on 2 liters nasal cannula at home. 6. Obstructive sleep apnea (DARSHAN), noncompliant with continuous positive airway pressure (CPAP). 7. Hypotension. 8. Gout. 9. Depression. 10. Continued tobacco abuse. 11. Diabetes, on insulin. 12. Alzheimer's disease. 13. Diabetic nephropathy. 14. History of right lung adenocarcinoma, status post lobectomy. 15. Hypothyroidism. 16. Paroxysmal atrial fibrillation and atrial flutter. 17. Post laminectomy syndrome. PERTINENT LABORATORIES ON ADMISSION: Chest x-ray showed diffuse a chronic interstitial fibrotic changes. CT angiography showed no evidence of pulmonary embolism. Sodium 140, potassium 3.2, BUN 3, creatinine 0.77, glucose 188. White count 11.7, hemoglobin 12.9, platelets 213,000. Digoxin level 0.5. HOSPITAL COURSE: 1. The patient was admitted for atrial fibrillation with rapid ventricular response. As above, heart rate had improved in the emergency room with beta rajwinder. She was converted to Toprol XL 75 mg daily, and heart rate has improved. She is running in the 60s and 70s consistently on Toprol XL and tolerating this well. The patient will require hospital followup with cardiology upon discharge for further adjustment of medications if needed. She does have a history of a 2:1 atrioventricular (AV) block in the past. 2. Acute on chronic systolic congestive heart failure. Her diuretics had been on hold due to the recent admission for acute renal failure, but she did have some decompensation with increased lower extremity edema, some of which is likely related to peripheral vascular disease. She will be discharged home on spironolactone 12.5 mg twice a day and furosemide 40 mg twice a day. She is compensated at the time of discharge, and renal function is stable as well as are her electrolytes. She will need close followup of her fluid status after discharge. We will see her in the office next week. 3. Diabetes mellitus, type 2. She is on insulin. Insulin doses have been adjusted. She will go home on her usual home dose of her insulin upon discharge. 4. COPD. This his end stage and chronic, on 2 liters nasal cannula. She is at baseline with her usual nebulizers. 5. Nicotine dependence. We continue to encourage her to quit. She continues to go home and smoke. She does not have any intention of quitting. She was on the patch here but will not continue to use this at home. She really has no interest in quitting. 6. Hypothyroidism. Will followup her thyroid-stimulating hormone (TSH) as an outpatient. It was a little high on admission, but she was in acute stress. 7. Physical deconditioning. She has 25/11 care. Patient and family services (PFS) is following. The family is managing her medications. She is ambulating and stable for discharge home and safe per physical therapy. DISPOSITION: The patient is stable for discharge home. Followup with Ness Galan next week. Followup with cardiology next week. They should be making an appointment for this. DIET: A 2-gram sodium, 1500 mL per 24-hour fluid restriction, consistent carbohydrate. DISCHARGE MEDICATIONS: - furosemide 40 mg twice a day - metoprolol 75 mg daily - spironolactone 12.5 mg twice a day - albuterol nebulizers every 4 hours as needed - allopurinol 100 mg daily - Eliquis 5 mg twice a day - aspirin 81 mg daily - atorvastatin 40 mg at bedtime - calcium plus D one tablet daily - vitamin D 400 international units daily - Colace 100 mg twice a day as needed - iron sulfate 325 mg daily - fexofenadine 180 mg daily - fish oil one tablet twice a day - gabapentin 400 mg four times a day - Lantus insulin 60 units in the morning, 44 units at bedtime with Humalog before meals and at bedtime - levothyroxine 50 mcg daily - magnesium oxide 800 mg three times a day - omeprazole 40 mg daily - oxycodone three times a day as needed - MiraLax daily as needed for constipation - ranitidine one tablet daily - Advair 500/50 one puff daily - Flomax 0.4 mg at bedtime - Spiriva one capsule daily - trazodone 150 mg at bedtime - venlafaxine 150 mg twice a day - vitamin A, C, E, zinc, copper - PreserVision one capsule twice a day Her dicyclomine, Duloxetine, tizanidine have all been discontinued in the hospital. Her furosemide dose was increased from once a day to twice a day. DISCHARGE DIAGNOSES: 1. Atrial fibrillation with rapid ventricular response. 2. Acute on chronic systolic congestive heart failure. 3. Chronic obstructive pulmonary disease. 4. Nicotine dependence. 5. Diabetes, insulin requiring. 6. Unsteady gait. 7. Dementia. 8. Obstructive sleep apnea, noncompliant with CPAP. 9. Hypothyroidism. 10. Chronic major depressive disorder.
== END 2018-10-02 12:38 | disposition home health service (06) | DRG 308 ==
LOC: M ED 16:17 → EEVIPCON 20:26 → M ED INP 20:26 → M MSPAV 22:50
PROVIDERS: ADMIT Internal Medicine Nephrology; ATTEND Family Medicine
DX: I48.0 Paroxysmal atrial fibrillation (principal); I50.23 Acute on chronic systolic (congestive) heart failure; Z68.41 Body mass index [BMI] 40.0-44.9, adult; E66.01 Morbid (severe) obesity due to excess calories; N18.3 Chronic kidney disease, stage 3 (moderate); M10.9 Gout, unspecified; E11.9 Type 2 diabetes mellitus without complications; E03.9 Hypothyroidism, unspecified; J44.9 Chronic obstructive pulmonary disease, unspecified; G47.33 Obstructive sleep apnea (adult) (pediatric); E78.5 Hyperlipidemia, unspecified; Z99.81 Dependence on supplemental oxygen; F32.9 Major depressive disorder, single episode, unspecified; F17.200 Nicotine dependence, unspecified, uncomplicated; Z79.4 Long term (current) use of insulin; G30.9 Alzheimer's disease, unspecified; F02.80 Dementia in other diseases classified elsewhere, unspecified severity, without behavioral disturbance, psychotic disturbance, mood disturbance, and anxiety; I95.9 Hypotension, unspecified; Z85.118 Personal history of other malignant neoplasm of bronchus and lung; I48.92 Unspecified atrial flutter; E11.21 Type 2 diabetes mellitus with diabetic nephropathy; M96.1 Postlaminectomy syndrome, not elsewhere classified; Z79.01 Long term (current) use of anticoagulants; Z79.899 Other long term (current) drug therapy; Z91.19 Patient's noncompliance with other medical treatment and regimen; E87.6 Hypokalemia

== ENCOUNTER 2018-10-05 20:26 | Emergency (ER) | payer MEDICARE, MEDICAID ==
[~2018-10-05] VITALS: Ht 165.1 cm; Wt 105.5 kg
[~2018-10-05 20:26] MED LIST changes: +METO1TAB32 PO
[2018-10-05] MEDS ORDERED: METOPROLOL 5 MG/5 ML VIAL IV STA (21:08)
[2018-10-05] MEDS ORDERED: METOPROLOL TART 25 MG TABLET PO ONE (21:15)
[2018-10-05] MEDS ORDERED: NS 1,000 ML IV ONE (21:15)
[2018-10-05 21:20] LABS: BASO # 0.1 10^3/uL (0.0-0.2); BASO % 0.6 % (0.0-1.0); EOS # 0.4 10^3/uL (0.0-0.50); EOS % 2.9 % (0.0-3.0); HEMATOCRIT 37.8 % (36.0-47.0); HEMOGLOBIN 11.9 g/dl (12.0-15.5); LYMPH # 1.6 10^3/uL (1.5-4.5); LYMPH % 11.6 % (24.0-44.0); MEAN CORPUSCULAR HEMOGLOBIN 27.4 pg (27.0-33.0); MEAN CORPUSCULAR HGB CONC 31.5 g/dl (32.0-36.5); MEAN CORPUSCULAR VOLUME 86.9 fl (80.0-96.0); MONO # 0.8 10^3/uL (0.0-0.8); NEUTROPHILS % 78.5 % (36.0-66.0); PLATELET COUNT, AUTOMATED 253 10^3/uL (150-450); RED BLOOD COUNT 4.35 10^6/uL (4.00-5.40)
[2018-10-05 21:38] LABS: BLOOD UREA NITROGEN 13 MG/DL (7-18); CALCIUM LEVEL 8.3 MG/DL (8.8-10.2); CARBON DIOXIDE LEVEL 34 MEQ/L (21-32); CHLORIDE LEVEL 95 MEQ/L (98-107); CPK CREATINE PHOSPHOKINASE 43 U/L (26-192); CREATININE FOR GFR 0.92 MG/DL (0.55-1.30); GLOMERULAR FILTRATION RATE > 60.0 (>39); GLUCOSE, FASTING 320 MG/DL (70-100); MB/CK RELATIVE INDEX 2.33 (< OR =4); POTASSIUM SERUM 3.6 MEQ/L (3.5-5.1); SODIUM LEVEL 136 MEQ/L (136-145); TROPONIN I < 0.02 NG/ML (< 0.10)
[2018-10-05] MEDS ORDERED: HumuLIN R (REGULAR) INSULIN (NovoLIN R) **100U/ML** PER UNIT IV ONE (21:45)
[2018-10-05] MEDS: METOPROLOL 5 MG/5 ML VIAL IV SCH ×3 (23:00→23:20)
[2018-10-05 23:20] VITALS: BP 125/60
[2018-10-06 00:05] VITALS: BP 111/69
--- NOTE | 2018-10-06 08:57 | REP ---
PORTABLE CHEST: AP portable view of the chest is performed and compared to prior studies, the most recent of which is 09/27/2018. Diffuse fibrotic changes are stable. No new infiltrate is visualized. Heart is not enlarged. Mediastinal silhouette is unchanged. Metallic clips project in the region of the right mediastinum. IMPRESSION: Stable exam. Electronically Signed by Alfred Hughes MD 10/06/2018 12:31 P
[2018-10-06] MEDS ORDERED: SPIR-10 PO (15:20)
[2018-10-06] MEDS ORDERED: METO1TAB32 PO (15:21)
--- NOTE | 2018-10-10 07:43 | ECGEPIP ---
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
== END 2018-10-06 00:14 | disposition home or self-care (01) ==
LOC: M ED 20:26
DX: I48.0 Paroxysmal atrial fibrillation (principal); R00.0 Tachycardia, unspecified; E11.9 Type 2 diabetes mellitus without complications; I10 Essential (primary) hypertension; E78.5 Hyperlipidemia, unspecified; K21.9 Gastro-esophageal reflux disease without esophagitis; I51.9 Heart disease, unspecified; Z72.0 Tobacco use; Z79.01 Long term (current) use of anticoagulants; Z79.82 Long term (current) use of aspirin; Z79.4 Long term (current) use of insulin; Z79.899 Other long term (current) drug therapy; Z88.0 Allergy status to penicillin

== ENCOUNTER 2018-10-06 12:26 | Inpatient (IN) | payer MEDICARE, MEDICAID ==
[~2018-10-06] VITALS: Ht 165.1 cm; Wt 107.8 kg
[2018-10-06] MEDS ORDERED: GLUCOSE 4 GM CHEW TABLET PO PRN (12:45)
[2018-10-06] MEDS ORDERED: NORCO, ANEXSIA 5/325MG TABLET (HYDROcodone/ACETAMINOPHEN) PO PRN (12:45)
[2018-10-06] MEDS ORDERED: GLUCAGON FOR INJ 1 MG VIAL (J1610) SC PRN (12:45)
[2018-10-06] MEDS ORDERED: DEXTROSE 50% 50 ML SYRINGE IV PRN (12:45)
[2018-10-06] MEDS: GABAPENTIN 300 MG CAP PO SCH ×3 (13:00→20:26)
--- NOTE | 2018-10-06 15:07 | REP ---
Chest two views HISTORY: Atrial fibrillation Comparison: 10/05/2018 There is elevation of the right hemidiaphragm. An increase in interstitial markings is present in the lungs consistent with chronic interstitial fibrosis. The heart is normal in size. The pulmonary vasculature is normal in appearance. There are old right rib fractures. IMPRESSION: Chronic interstitial fibrosis. Electronically Signed by Bassam Cook MD 10/06/2018 02:58 P
[2018-10-06 15:15] VITALS: BP 142/64
[2018-10-06] MEDS ORDERED: SPIR-10 PO (15:20)
[2018-10-06] MEDS ORDERED: METO1TAB32 PO (15:21)
[2018-10-06 15:36] LABS: HEMATOCRIT 38.1 % (36.0-47.0); HEMOGLOBIN 12.1 g/dl (12.0-15.5); MEAN CORPUSCULAR HEMOGLOBIN 28.3 pg (27.0-33.0); MEAN CORPUSCULAR HGB CONC 31.8 g/dl (32.0-36.5); MEAN CORPUSCULAR VOLUME 89.2 fl (80.0-96.0); PLATELET COUNT, AUTOMATED 246 10^3/uL (150-450); RED BLOOD COUNT 4.27 10^6/uL (4.00-5.40); WHITE BLOOD COUNT 12.3 10^3/uL (4.0-10.0)
[2018-10-06 16:18] LABS: ALBUMIN 2.8 GM/DL (3.2-5.2); ALT/SGPT 17 U/L (12-78); BILIRUBIN,TOTAL 0.3 MG/DL (0.2-1.0); BLOOD UREA NITROGEN 12 MG/DL (7-18); CALCIUM LEVEL 8.1 MG/DL (8.8-10.2); CARBON DIOXIDE LEVEL 29 MEQ/L (21-32); CHLORIDE LEVEL 98 MEQ/L (98-107); CK-MB VALUE MASS < 1.0 NG/ML (<3.6); CPK CREATINE PHOSPHOKINASE 44 U/L (26-192); CREATININE FOR GFR 0.78 MG/DL (0.55-1.30); GLOMERULAR FILTRATION RATE > 60.0 (>39); GLUCOSE, FASTING 301 MG/DL (70-100); MB/CK RELATIVE INDEX 2.27 (< OR =4); POTASSIUM SERUM 3.9 MEQ/L (3.5-5.1); SODIUM LEVEL 136 MEQ/L (136-145); TOTAL PROTEIN 6.1 GM/DL (6.4-8.2); TROPONIN I < 0.02 NG/ML (< 0.10)
[2018-10-06 17:00] VITALS: BP 142/64; PULSE 112
[2018-10-06] MEDS ORDERED: ALBUTEROL 90 MCG/ACT 8GM HFA INHALER INH SCH (17:00)
--- NOTE | 2018-10-06 18:03 | CR ---
DATE OF CONSULTATION: 10/06/2018 CONSULTATION REPORT FOR: PRES[facility] M[facility] CARDIOLOGY CONSULTATION: INDICATION: Recurrent atrial fibrillation/flutter with rapid ventricular response. HISTORY: This 73-year-old , mother of three grown children, retired resident of [place], [place] is well-known to our cardiology practice with multiple medical problems including advanced respiratory failure due to a combination smoking-induced, wheezy bronchitis, lung cancer, and obstructive sleep apnea. She has severe pulmonary hypertension and right heart failure related to her pulmonary disease. Has no intrinsic left ventricular problems beyond mild degenerative valvular heart disease. She has been known to have paroxysmal atrial fibrillation/flutter since at least last August 2017 with a somewhat rapid ventricular response. Previously controlled with combination digoxin and bisoprolol. Hospitalized 09/21/2018 with digoxin toxicity suspected to be related to volume depletion and acute on chronic renal insufficiency. Upon that admission, she had converted to a sinus mechanism and had a relatively slow ventricular response so medications were withheld. At the time of her discharge, she was discharged off negative chronotropic therapy only to present to the emergency room 09/26/2018 with recurrent atrial fibrillation and rapid ventricular response with some worsening shortness of breath. She was given parenteral metoprolol and started on metoprolol 50 mg and converted to a sinus mechanism with rate in the 80s. Discharged on 10/02/2018. She was seen in followup today at her primary care's office having recurrent atrial flutter with somewhat rapid ventricular response, averaging approximately 120 beats per minute (bpm). In light of this, she was referred back to the hospital for further adjustment of her negative chronotropic therapy. Unfortunately, no meaningful history is obtained from the patient but according to her family, she appears to have had vague chest heaviness since last week and some worsening shortness of breath. Remains somewhat confused and continues to smoke heavily (one pack per day). Has not been compliant with her continuous positive airway pressure (CPAP) therapy. According to the patient, she walks short distances using a walker to the bathroom and back and has not felt lightheaded or fallen. KNOWN PAST CARDIAC DISEASE/EVENTS/TESTS: April 17, 2016, a dobutamine/atropine stress heart scan showed no inducible chest pain despite peak heart rate of 142, blood pressure 155/50 with no EKG change and normal stress single photon emission computed tomography (SPECT) myocardial perfusion images against inducible myocardial ischemia. Echocardiogram July 2018 showed normal left ventricular size, wall thickness and wall motion, slight left atrial enlargement with right heart chambers normal in size with hyperkinetic wall motion but estimated pulmonary arterial pressure of at least 51 mmHg. Her inferior vena cava was dilated with reduced respiratory collapse in keeping with central venous pressure of at least 20 mmHg (right heart failure). She has mild aortic valvular sclerosis and mild mitral annular calcification without hemodynamically significant valvular abnormality. No pericardial effusion. CORONARY RISK FACTOS: Advanced age. Obesity. Insulin-dependent diabetes mellitus. Hypercholesterolemia. Essential hypertension. Longstanding heavy smoker to the present. OTHER PAST MEDICAL/SURGICAL HISTORY: Morbid obesity with current body mass index (BMI) 39. Obstructive sleep apnea, noncompliant with continuous positive airway pressure (CPAP) therapy, chronic wheezy bronchitis/obstructive pulmonary disease on chronic home oxygen (O2). Cancer of the lung with recurrent positive lymph nodes. Hypothyroidism on replacement therapy. Anxiety/depression and dementia. Three normal vaginal deliveries. Remote hysterectomy and cholecystectomy. REVIEW OF SYSTEMS: No recent fevers, chills or weight loss. Wears corrective lenses. Reports taking her home oxygen off to smoke on a regular basis. Noncompliance with continuous positive airway pressure (CPAP) therapy. Chronic productive cough and dyspnea. Persistent chest tightness since last week. History of intermittent heartburn and reflux but no current abdominal pain or gastrointestinal (GI) bleeding. Denies urological problems. Chronic arthralgia. History of prior gout. Chronic lower leg swelling. Peripheral neuropathy. Prior history of falling. All other systems review is negative. MEDICATIONS: At the time of her admission her medications included: - metoprolol succinate 25 mg three times a day - Eliquis 5 mg twice a day - Lasix 40 mg twice a day - spironolactone 25 mg tablets one-half tablet twice a day - atorvastatin 40 mg once a day - Advair Diskus 500/50 one inhalation twice a day - Spiriva inhaler one inhalation daily - ProAir inhaler as needed - also has albuterol nebulizer solution every four hours as needed - Flomax 0.4 mg by mouth daily for hesitancy - fexofenadine 180 mg daily - aspirin 81 mg daily - venlafaxine 150 mg twice a day - magnesium 400 mg tablets two tablets three times a day - gabapentin cava 300 mg four times a day - levothyroxine 50 mcg daily - omeprazole 40 mg daily - ferrous sulfate 325 mg daily - allopurinol 100 mg daily - multivitamin daily - Flonase one inhalation in each nostril twice daily - trazodone 150 mg at bedtime - ranitidine 150 mg daily - oxycodone/acetaminophen 5/325 mg one tablet every four hours as needed - Humalog Quick KwikPen subcutaneous as per sliding scale - Lantus SoloSTAR pen injector 60 units subcutaneous every morning and 44 units subcutaneous as directed every evening ALLERGIES: PENICILLIN. PHYSICAL EXAMINATION: CONSTITUTIONAL: Obese, elderly lady lying with the head of bed elevated at approximately 45 degrees, wearing supplemental oxygen by nasal prongs without distress. VITAL SIGNS: Pulse rate 110 beats per minute (bpm) and irregular, blood pressure 110/48 supine and sitting with legs dependent, respiratory rate 18 per minute with oxygen saturation 97% on supplemental oxygen by nasal prongs at two liters per minute. Afebrile. Weight 235 pounds, height 65 inches, body mass index (BMI) 39.2 (unchanged from 09/01/2018). EYES: Normal-appearing conjunctivae and lids. No xanthelasma. EARS, NOSE AND THROAT/MOUTH: Edentulous with dentures. Normal oral moisture. No central cyanosis. NECK: Trachea midline. Thyroid did not appear to be enlarged. Neck veins were elevated at approximately 8-10 cm above the sternal angle. Visible flutter waves. RESPIRATORY: Increased anteroposterior chest diameter with reduced chest expansion. Has variable inspiratory rales and obvious diffuse expiratory wheezes with intermittent coughing. CARDIOVASCULAR: Apical impulse not palpable. Heart sounds somewhat distant and variable. No audible murmur, gallop or rub. Normal carotid upstrokes and variable volume-related to her arrhythmia. No audible bruits. Upper extremity pulses were symmetrical and normal. Pedal pulses were symmetrically reduced. Abdominal aorta was not palpable. No bruits. Femoral pulses not palpable because of obesity. EXTREMITIES: Has superficial venules both lower legs with pitting and nonpitting swelling plus/minus one-half up bilaterally. No current sacral pitting edema. No clubbing, peripheral cyanosis or splinter hemorrhages. GASTROINTESTINAL (GI): Soft, overweight, protuberant abdomen with lower abdominal pannus. No palpable hepatosplenomegaly. RECTAL: Examination not indicated. MUSCULOSKELETAL: Gait was not assessed because of her weakness and respiratory distress. No obvious joint deformities. Some proximal muscle weakness but is still able to sit up for us with minimal assist. Normal spine curvature with healed laminectomy scar. SKIN: No pallor, cyanosis or icterus. NEUROLOGICAL/PSYCHOLOGICAL: Affect appeared to be appropriate. Currently orientated. Family points out problems with her memory. No abnormal movements. PA AND LEFT LATERAL CHEST X-RAY: Reviewed independently and shows obvious cardiomegaly with CT ratio measuring 15.8:28.8, normal-appearing thoracic aorta. Prominent proximal pulmonary arteries. No pulmonary venous congestion. Increased interstitial markings with somewhat flattened diaphragms with hyperinflated lung jacome. No localized infiltrate or mass. Degenerative changes of her thoracic spine with osteoporosis. EKG: Tracing reviewed independently shows underlying atrial flutter with slightly fast ventricular response averaging 110 bpm. Slightly low voltages with very subtle inferior ST scooping. Compared with last available tracing 09/26/2018, that study shows sinus mechanism at 78 beats per minute and was remarkably similar. BLOOD WORK: Hemoglobin 11.1 with normal to slightly low MCHC but normal cell size. Slight leukocytosis of 12.3 thousand, actually down from yesterday. Platelet count was normal. Chemistries confirmed electrolyte balance with a potassium of 3.9, BUN 12, creatinine 0.78, random glucose 301, albumin 2.8, serum calcium 8.1 slightly elevated alkaline phosphatase but normal transaminases and total bilirubin. Troponin I level was negative. Last pro BNP level 09/27/2017 measured a remarkably low level of 473, likely related to obesity. IMPRESSION/PLAN: 1. Paroxysmal atrial fibrillation/flutter: At this point, would recommend continued efforts for rate control. Have suggested switching her metoprolol succinate to metoprolol tartrate 50 mg twice a day and monitor her on telemetry for the next 24-48 hours. Remains on Eliquis 5 mg twice a day. Would not be inclined to reintroduce aspirin antiplatelet therapy. 2. Cor pulmonale (chronic)/right heart failure: As described advanced/end- stage related to her multiple respiratory problems and obstructive sleep apnea. Frustratingly, the patient continues to smoke heavily despite the potential dangers with her home oxygen and is noncompliant with continuous positive airway pressure (CPAP) therapy. Fortunately, documents have been completed for a DO NOT RESUSCITATE (DNR). We have discussed a very guarded prognosis with her daughter who appears to understand. 3. Essential hypertension: Current blood pressure is adequately controlled with metoprolol and her diuretic therapy. Remarkably, her chemistry is in balance with normal renal function. We would encourage continued modest salt and fluid intake restriction. However, with the patient's dementia, this is unlikely to be followed at home. 4. Mixed hyperlipidemia: As mentioned, unlikely to be compliant with dietary measures with her dementia, but last available lipid profile April 2018 showed a total cholesterol of 177, high-density lipoprotein (HDL) 45, triglyceride 186 on her present statin therapy. She appears to tolerate this agent without adverse effect. Liver function studies are abnormal, likely related to her right heart failure but transaminases were not significantly elevated. We will monitor her telemetry findings, but otherwise follow her from afar. Thank you. ROMERO
[2018-10-06] MEDS: SPIRONOLACTONE 12.5MG PER 1/2 TABLET PO SCH (18:05)
[2018-10-06] MEDS: FUROSEMIDE 40 MG TAB PO SCH (18:06)
[2018-10-06] MEDS: HumaLOG INSULIN (NovoLOG) PER UNIT SC SCH ×2 (18:12→21:00)
[2018-10-06 20:00] VITALS: BP 119/59; PULSE 118
[2018-10-06] MEDS: APIXABAN 5 MG TAB (ELIQUIS) PO SCH (20:24)
[2018-10-06] MEDS: METOPROLOL TART 50 MG TAB PO SCH (20:25)
[2018-10-06] MEDS: traZODone 50 MG TAB PO SCH (20:30)
[2018-10-06] MEDS: VENLAFAXINE 37.5 MG TAB PO SCH (20:30)
[2018-10-06] MEDS: ALBUTEROL 90 MCG/ACT 8GM HFA INHALER INH SCH (20:33)
[2018-10-06] MEDS: LEVEMIR (INSULIN DETEMIR) 1 UNITS/0.01ML SC SCH (20:59)
[2018-10-06] MEDS: ADVAIR HFA 230/21MCG INHALER INH SCH (21:00)
--- NOTE | 2018-10-06 21:01 | ECGEPIP ---
[facility] Test Date: 2018-10-06 Pat Name: PINEDA VALDERRAMA Department: Room: [place] [address] Gender: Female Presentation Team Member: SARITA : 1945 Requested By: Kiran Galan Order Number: [id number] Reading MD: Amado Esposito Measurements Intervals [place] Rate: 111 P: GA: -1 QRS: 68 QRSD: 86 T: 30 QT: 331 QTc: 451 Interpretive Statements Underlying atrial flutter with somewhat rapid ventricular response. Somewhat low voltages. No significant change from 10/05/18. Electronically Signed on 10-06-2018 21:01:31 EDT by Amado Esposito
[2018-10-06 23:09] LABS: CK-MB VALUE MASS < 1.0 NG/ML (<3.6); CPK CREATINE PHOSPHOKINASE 37 U/L (26-192); TROPONIN I < 0.02 NG/ML (< 0.10)
[2018-10-06 23:59] VITALS: BP 98/55
[2018-10-07] VITALS (7 sets, daily range): BP systolic 113–141; BP diastolic 56–84; PULSE 105–120
[2018-10-07] MEDS: LEVOTHYROXINE 50MCG TABLET (0.05MG) PO SCH (05:47)
[2018-10-07 07:35] LABS: HEMATOCRIT 37.7 % (36.0-47.0); HEMOGLOBIN 11.5 g/dl (12.0-15.5); MEAN CORPUSCULAR HEMOGLOBIN 27.1 pg (27.0-33.0); MEAN CORPUSCULAR HGB CONC 30.5 g/dl (32.0-36.5); MEAN CORPUSCULAR VOLUME 88.7 fl (80.0-96.0); PLATELET COUNT, AUTOMATED 247 10^3/uL (150-450); RED BLOOD COUNT 4.25 10^6/uL (4.00-5.40); WHITE BLOOD COUNT 11.1 10^3/uL (4.0-10.0)
[2018-10-07] MEDS: HumaLOG INSULIN (NovoLOG) PER UNIT SC SCH ×4 (07:58→21:23)
[2018-10-07] MEDS: OMEPRAZOLE 20 MG CAP PO SCH (07:59)
[2018-10-07] MEDS: LEVEMIR (INSULIN DETEMIR) 1 UNITS/0.01ML SC SCH ×2 (07:59→21:21)
[2018-10-07] MEDS: VENLAFAXINE 37.5 MG TAB PO SCH ×2 (07:59→21:22)
[2018-10-07] MEDS: SPIRONOLACTONE 12.5MG PER 1/2 TABLET PO SCH ×2 (07:59→16:50)
[2018-10-07] MEDS: ALLOPURINOL 100 MG TAB PO SCH (08:00)
[2018-10-07] MEDS: APIXABAN 5 MG TAB (ELIQUIS) PO SCH ×2 (08:00→21:22)
[2018-10-07] MEDS: METOPROLOL TART 50 MG TAB PO SCH ×2 (08:00→21:22)
[2018-10-07] MEDS: GABAPENTIN 300 MG CAP PO SCH ×4 (08:00→21:22)
[2018-10-07] MEDS: FUROSEMIDE 40 MG TAB PO SCH ×2 (08:00→16:50)
[2018-10-07 08:06] LABS: BLOOD UREA NITROGEN 13 MG/DL (7-18); CALCIUM LEVEL 8.5 MG/DL (8.8-10.2); CARBON DIOXIDE LEVEL 35 MEQ/L (21-32); CHLORIDE LEVEL 99 MEQ/L (98-107); CK-MB VALUE MASS < 1.0 NG/ML (<3.6); CPK CREATINE PHOSPHOKINASE 36 U/L (26-192); CREATININE FOR GFR 0.91 MG/DL (0.55-1.30); GLOMERULAR FILTRATION RATE > 60.0 (>39); GLUCOSE, FASTING 304 MG/DL (70-100); MB/CK RELATIVE INDEX 2.78 (< OR =4); POTASSIUM SERUM 4.2 MEQ/L (3.5-5.1); SODIUM LEVEL 139 MEQ/L (136-145); TROPONIN I < 0.02 NG/ML (< 0.10)
[2018-10-07] MEDS: TIOTROPIUM INHALER/CAPSULE (SPIRIVA) INH SCH (08:23)
[2018-10-07] MEDS: ADVAIR HFA 230/21MCG INHALER INH SCH ×2 (08:23→20:05)
[2018-10-07] MEDS: ALBUTEROL 90 MCG/ACT 8GM HFA INHALER INH SCH ×4 (08:23→20:06)
--- NOTE | 2018-10-07 08:49 | IPNPDOC ---
Subjective Date Seen The patient was seen on 10/07/18. Subjective Chief Complaint/HPI Patient sitting at bedside comfortably as I entered the room. She reports to be feeling about the same. No acute events overnight Constitutional: Denies: Chills, Fever Skin: Denies: Rash Pulmonary: Reports: Dyspnea (Chronic ), Cough; Denies: Pleuritic Chest Pain Cardiovascular: Reports: Other Symptoms (Reports chest heaviness x 3+ months ); Denies: Chest Pain, Palpitations, Orthopnea, Edema Gastrointestinal: Denies: Nausea, Vomiting Psych: Reports: Mood Normal Objective Physical Examination General Exam: Positive: Alert, Cooperative, No Acute Distress Eye Exam: Negative: Sclera icteric Neck Exam: Positive: Supple; Negative: JVD Chest Exam: Positive: Clear to auscultation, Diminished; Negative: Rales, Rhonchi, Wheezing Heart Exam: Positive: Tachycardic; Negative: Murmurs Telemetry: Positive: Atrial fibrillation Abdomen Exam: Positive: Normal bowel sounds, Soft; Negative: Tenderness Extremity Exam: Negative: Edema Psych Exam: Positive: Mental status NL, Mood NL Assessment /Plan Problems (1) Atrial fibrillation with RVR Status: Chronic Problem Specific Plan: Consult Specialist Problem Text: Dr. Esposito was consulted. Metoprolol succinate was changed to Metoprolol tartrate 50mg po bid. We will monitor response. She remains on Elquis 5 mg bid. We will continue to monitor and work towards rate control (2) COPD (chronic obstructive pulmonary disease) Status: Chronic Response to Treatment: Stable Problem Text: Remains on her outpatient regimen (3) CKD stage 3 due to type 2 diabetes mellitus Status: Chronic Response to Treatment: Stable Problem Text: BUN/Cre 13/0.91, GFR > 60 (4) Diastolic CHF Status: Chronic Response to Treatment: Stable Problem Text: Patient appears well compensated on exam today. Currently on Lasix 40mg po bid and Spironolactone 12.5mg po bid Last ECHO 07/2018 Conclusions 1. Normal left ventricle internal dimensions and wall thickness. Hyperdynamic left ventricle (LV) systolic function. Left ventricular ejection fraction (LVEF) 75-80%. No regional wall motion abnormalities of the left ventricle. 2. Hyperdynamic right ventricle systolic function. Normal right ventricle size by visual assessment. 3. Mild left atrial dilatation. Visual appearance of probably normal right atrial size. 4. Suggestive of moderate elevation of pulmonary artery systolic pressure (51 mmHg). 5. 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 Suggestive of elevated central venous pressure of at least 20 mmHg. 6. No pericardial effusion. 7. Mild aortic valve sclerosis of a three-cuspid aortic valve. 8. Mild mitral annular calcification. No mitral regurgitation. (5) DARSHAN on CPAP Status: Chronic Response to Treatment: Stable Problem Text: Patient has been non-compliant with CPAP as outpatient. Will encourage use during inpatient stay Plan/VTE VTE Prophylaxis Ordered?: Yes (Eliquis ) Plan Family Medicine Attending Note: I saw and examined Ms. Caal, discussed with Joss Rodriguez DNP. Agree with her note as documented. Her heart rate seems to be coming under better control. She is less symptomatic than she was yesterday, although she still admits to a chest pressure during my interview. Dr. Esposito is assisting with management of these conditions; appreciate his help. (stave hewer) VS, I&O, 24H, Fishbone Vital Signs/I&O Vital Signs Date Time Temp Pulse Resp B/P (MAP) Pulse Ox O2 Delivery O2 Flow Rate FiO2 10/07/18 08:00 97.4 136 20 136/84 (101) 97 2.0 10/07/18 04:00 Nasal Cannula I&O- Last 24 Hours up to 6 AM 10/07/18 06:00 Intake Total 600 ml Output Total 1800 ml Balance -1200 ml Laboratory Data 24H LABS Laboratory Tests 2 10/06/18 15:22: Nucleated Red Blood Cells % (auto) 0.0, Anion Gap 9, Glomerular Filtration Rate > 60.0, Blood Urea Nitrogen 12, Creatinine 0.78, Sodium Level 136, Potassium Level 3.9, Chloride Level 98, Carbon Dioxide Level 29, Calcium Level 8.1L, Aspartate Amino Transf (AST/SGOT) 12, Alanine Aminotransferase (ALT/SGPT) 17, Total Creatine Kinase 44, Alkaline Phosphatase 134H, Total Bilirubin 0.3, Total Protein 6.1L, Albumin 2.8L, Creatine Kinase MB < 1.0, Creatine Kinase MB Relative Index 2.27, Troponin I < 0.02, Albumin/Globulin Ratio 0.85L 10/06/18 18:04: Bedside Glucose (Misc Panel) 359H 10/06/18 20:50: Bedside Glucose (Misc Panel) 305H 10/06/18 22:38: Total Creatine Kinase 37, Creatine Kinase MB < 1.0, Creatine Kinase MB Relative Index 2.70, Troponin I < 0.02 10/07/18 07:08: Nucleated Red Blood Cells % (auto) 0.0, Anion Gap 5L, Glomerular Filtration Rate > 60.0, Blood Urea Nitrogen 13, Creatinine 0.91, Sodium Level 139, Potassium Level 4.2, Chloride Level 99, Carbon Dioxide Level 35H, Calcium Level 8.5L, Total Creatine Kinase 36, Creatine Kinase MB < 1.0, Creatine Kinase MB Relative Index 2.78, Troponin I < 0.02 10/07/18 07:36: Bedside Glucose (Misc Panel) 302H CBC/BMP Laboratory Tests 10/06/18 15:22 Red Blood Count 4.27, Mean Corpuscular Volume 89.2, Mean Corpuscular Hemoglobin 28.3, Mean Corpuscular Hemoglobin Concent 31.8 L, Red Cell Distribution Width 15.5 H, Calcium Level 8.1 L, Aspartate Amino Transf (AST/SGOT) 12, Alanine Aminotransferase (ALT/SGPT) 17, Total Creatine Kinase 44, Alkaline Phosphatase 134 H, Total Bilirubin 0.3, Total Protein 6.1 L, Albumin 2.8 L 10/07/18 07:08 Red Blood Count 4.25, Mean Corpuscular Volume 88.7, Mean Corpuscular Hemoglobin 27.1, Mean Corpuscular Hemoglobin Concent 30.5 L, Red Cell Distribution Width 15.8 H, Calcium Level 8.5 L, Total Creatine Kinase 36 JOSS RODRIGUEZ Oct 07, 2018 08:49 Lamont Kramer MD Oct 07, 2018 23:13
[2018-10-07] MEDS ORDERED: SLF 3 ML SYR IV PRN (13:00)
[2018-10-07] MEDS: SLF 3 ML SYR IV SCH ×2 (13:04→21:23)
[2018-10-07 15:37] LABS: CK-MB VALUE MASS < 1.0 NG/ML (<3.6); CPK CREATINE PHOSPHOKINASE 32 U/L (26-192); MB/CK RELATIVE INDEX 3.12 (< OR =4); TROPONIN I < 0.02 NG/ML (< 0.10)
[2018-10-07] MEDS: ATORVASTATIN 20 MG TAB PO SCH (21:22)
[2018-10-07] MEDS: traZODone 50 MG TAB PO SCH (21:22)
[2018-10-08] VITALS: PULSE 120
[2018-10-08 04:00] VITALS: BP 108/55; PULSE 112
[2018-10-08 05:34] LABS: HEMATOCRIT 34.4 % (36.0-47.0); HEMOGLOBIN 10.7 g/dl (12.0-15.5); MEAN CORPUSCULAR HEMOGLOBIN 27.4 pg (27.0-33.0); MEAN CORPUSCULAR HGB CONC 31.1 g/dl (32.0-36.5); MEAN CORPUSCULAR VOLUME 88.2 fl (80.0-96.0); PLATELET COUNT, AUTOMATED 214 10^3/uL (150-450); WHITE BLOOD COUNT 10.5 10^3/uL (4.0-10.0)
[2018-10-08 05:43] LABS: CALCIUM LEVEL 8.9 MG/DL (8.8-10.2); CREATININE FOR GFR 1.06 MG/DL (0.55-1.30); GLOMERULAR FILTRATION RATE 54.1 (>39); POTASSIUM SERUM 4.4 MEQ/L (3.5-5.1)
[2018-10-08] MEDS: LEVOTHYROXINE 50MCG TABLET (0.05MG) PO SCH (05:48)
[2018-10-08] MEDS: SLF 3 ML SYR IV SCH ×3 (05:48→22:00)
[2018-10-08] MEDS: HumaLOG INSULIN (NovoLOG) PER UNIT SC SCH ×3 (07:44→17:23)
[2018-10-08] MEDS: TIOTROPIUM INHALER/CAPSULE (SPIRIVA) INH SCH (07:51)
[2018-10-08] MEDS: ALBUTEROL 90 MCG/ACT 8GM HFA INHALER INH SCH ×4 (07:51→20:00)
[2018-10-08] MEDS: ADVAIR HFA 230/21MCG INHALER INH SCH ×2 (07:53→20:43)
[2018-10-08 08:00] VITALS: BP 119/59
[2018-10-08] MEDS: LEVEMIR (INSULIN DETEMIR) 1 UNITS/0.01ML SC SCH ×2 (08:54→21:16)
[2018-10-08] MEDS: METOPROLOL TART 50 MG TAB PO SCH ×2 (08:54→21:15)
[2018-10-08] MEDS: VENLAFAXINE 37.5 MG TAB PO SCH ×2 (08:54→21:15)
[2018-10-08] MEDS: OMEPRAZOLE 20 MG CAP PO SCH (08:54)
[2018-10-08] MEDS: GABAPENTIN 300 MG CAP PO SCH ×4 (08:54→21:15)
[2018-10-08] MEDS: SPIRONOLACTONE 12.5MG PER 1/2 TABLET PO SCH ×2 (08:55→17:23)
[2018-10-08] MEDS: ALLOPURINOL 100 MG TAB PO SCH (08:55)
[2018-10-08] MEDS: APIXABAN 5 MG TAB (ELIQUIS) PO SCH ×2 (08:55→21:15)
[2018-10-08] MEDS: FUROSEMIDE 40 MG TAB PO SCH ×2 (08:55→17:24)
--- NOTE | 2018-10-08 09:13 | IPNPDOC ---
Subjective Date Seen The patient was seen on 10/08/18. Subjective Chief Complaint/HPI Patient sitting comfortably in chair with many family members in her room as I entered. She reports to be feeling about the same. Heart rate remains tachy. Chest pressure has eased but still present Constitutional: Denies: Chills, Fever Pulmonary: Reports: Dyspnea (chronic ); Denies: Cough, Pleuritic Chest Pain Cardiovascular: Reports: Other Symptoms (chest pressure ); Denies: Palpitations, Orthopnea, Edema Gastrointestinal: Denies: Nausea, Vomiting, Abdominal Pain Psych: Reports: Mood Normal Objective Physical Examination General Exam: Positive: Alert, Cooperative, No Acute Distress Eye Exam: Negative: Sclera icteric Neck Exam: Positive: Supple; Negative: JVD Chest Exam: Positive: Clear to auscultation, Diminished; Negative: Rales, Rhonchi, Wheezing Heart Exam: Positive: Tachycardic; Negative: Murmurs Telemetry: Positive: Atrial fibrillation Abdomen Exam: Positive: Normal bowel sounds, Soft; Negative: Tenderness Extremity Exam: Negative: Edema Psych Exam: Positive: Mental status NL, Mood NL Assessment /Plan Problems (1) Atrial fibrillation with RVR Status: Chronic Problem Specific Plan: Consult Specialist Problem Text: 10/08/18: Dr. Esposito has been consulted. Her Metoprolol was increased to 50mg i po bid. We may want to consider titrating this further Dr. Esposito was consulted. Metoprolol succinate was changed to Metoprolol tartrate 50mg po bid. We will monitor response. She remains on Elquis 5 mg bid. We will continue to monitor and work towards rate control (2) COPD (chronic obstructive pulmonary disease) Status: Chronic Response to Treatment: Stable Problem Text: 10/08/18: Stable Remains on her outpatient regimen (3) IDDM (insulin dependent diabetes mellitus) Status: Chronic Problem Text: 10/08/18: FBG 390 this morning. Since her admission she has received a total of 56 units of meal time coverage. I will increase her Levemir to 25 units bid. We will continue to monitor and make adjustments accordingly (4) Diastolic CHF Status: Chronic Response to Treatment: Stable Problem Text: 10/08/18: Patient appears well compensated on exam today. Currently on Lasix 40mg po bid and Spironolactone 12.5mg po bid Last ECHO 07/2018 Conclusions 1. Normal left ventricle internal dimensions and wall thickness. Hyperdynamic left ventricle (LV) systolic function. Left ventricular ejection fraction (LVEF) 75-80%. No regional wall motion abnormalities of the left ventricle. 2. Hyperdynamic right ventricle systolic function. Normal right ventricle size by visual assessment. 3. Mild left atrial dilatation. Visual appearance of probably normal right atrial size. 4. Suggestive of moderate elevation of pulmonary artery systolic pressure (51 mmHg). 5. 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 Suggestive of elevated central venous pressure of at least 20 mmHg. 6. No pericardial effusion. 7. Mild aortic valve sclerosis of a three-cuspid aortic valve. 8. Mild mitral annular calcification. No mitral regurgitation. (5) CKD stage 3 due to type 2 diabetes mellitus Status: Chronic Response to Treatment: Stable Problem Text: BUN/Cre 13/0.91, GFR > 60 (6) DARSHAN on CPAP Status: Chronic Response to Treatment: Stable Problem Text: Patient has been non-compliant with CPAP as outpatient. Will encourage use during inpatient stay Plan/VTE VTE Prophylaxis Ordered?: Yes (Hever ) Plan Family Medicine Attending Note: I saw and examined Ms. Caal, discussed with Joss Rodriguez DNP. Agree with her note as documented. I spoke with Dr. Esposito today. He is recommending we do not work to decrease the patient's heart rate anymore. His rationale is that her heart failure is primarily right-sided (cor pulmonale) and she needs a compensatory tachycardia in order to maintain effective output to the lungs. He believes we should try to control her rate below 120, but somewhere between in the 100-110s is probably optimal for her. If she were to choose to use her CPAP, or stop smoking, it's possible her pulmonary arterial pressure might decrease and therefore her heart rate may decrease on its own but this would be because she no longer needs as intense of a compensatory mechanism. Barring those changes, she needs that compensatory mechanism of a relative tachycardia to maintain adequate right heart output. He is suggesting that she is probably optimized at this point. 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) VS, I&O, 24H, Fishbone Vital Signs/I&O Vital Signs Date Time Temp Pulse Resp B/P (MAP) Pulse Ox O2 Delivery O2 Flow Rate FiO2 10/08/18 08:54 120/60 6/6/19 08:00 96.4 112 20 95 2.0 10/08/18 04:00 Nasal Cannula I&O- Last 24 Hours up to 6 AM 10/08/18 06:00 Intake Total 2740 ml Output Total 4100 ml Balance -1360 ml Laboratory Data 24H LABS Laboratory Tests 2 10/07/18 11:18: Bedside Glucose (Misc Panel) 385H 10/07/18 14:53: Total Creatine Kinase 32, Creatine Kinase MB < 1.0, Creatine Kinase MB Relative Index 3.12, Troponin I < 0.02 10/07/18 16:21: Bedside Glucose (Misc Panel) 342H 10/07/18 20:42: Bedside Glucose (Misc Panel) 387H 10/08/18 05:09: Nucleated Red Blood Cells % (auto) 0.0, Anion Gap 5L, Glomerular Filtration Rate 54.1, Blood Urea Nitrogen 16, Creatinine 1.06, Sodium Level 135L, Potassium Level 4.4, Chloride Level 96L, Carbon Dioxide Level 34H, Calcium Level 8.9 CBC/BMP Laboratory Tests 10/08/18 05:09 Red Blood Count 3.90 L, Mean Corpuscular Volume 88.2, Mean Corpuscular Hemoglobin 27.4, Mean Corpuscular Hemoglobin Concent 31.1 L, Red Cell Distribution Width 15.7 H, Calcium Level 8.9 JOSS RODRIGUEZ Oct 08, 2018 09:13 Lamont Kramer MD Oct 08, 2018 22:23
[2018-10-08 12:00] VITALS: BP 108/62
[2018-10-08 16:00] VITALS: BP 136/69
[2018-10-08 20:00] VITALS: BP 102/55
[2018-10-08] MEDS: traZODone 50 MG TAB PO SCH (21:15)
[2018-10-08] MEDS: ATORVASTATIN 20 MG TAB PO SCH (21:15)
[2018-10-08] MEDS ORDERED: HumaLOG INSULIN (NovoLOG) PER UNIT SC ONE (21:15)
[2018-10-09] VITALS: BP 120/55
[2018-10-09] MEDS: LEVOTHYROXINE 50MCG TABLET (0.05MG) PO SCH (05:41)
[2018-10-09] MEDS: SLF 3 ML SYR IV SCH (05:43)
[2018-10-09 06:00] VITALS: BP 126/70
[2018-10-09] MEDS: ALBUTEROL 90 MCG/ACT 8GM HFA INHALER INH SCH (06:16)
[2018-10-09] MEDS: TIOTROPIUM INHALER/CAPSULE (SPIRIVA) INH SCH (06:16)
[2018-10-09 06:42] LABS: HEMATOCRIT 37.6 % (36.0-47.0); HEMOGLOBIN 11.5 g/dl (12.0-15.5); MEAN CORPUSCULAR HEMOGLOBIN 26.9 pg (27.0-33.0); MEAN CORPUSCULAR HGB CONC 30.6 g/dl (32.0-36.5); MEAN CORPUSCULAR VOLUME 88.1 fl (80.0-96.0); PLATELET COUNT, AUTOMATED 278 10^3/uL (150-450); RED BLOOD COUNT 4.27 10^6/uL (4.00-5.40); WHITE BLOOD COUNT 12.4 10^3/uL (4.0-10.0)
[2018-10-09 07:03] LABS: GLOMERULAR FILTRATION RATE 57.9 (>39); POTASSIUM SERUM 3.8 MEQ/L (3.5-5.1)
[2018-10-09] MEDS ORDERED: LOPR1TAB6 PO (08:53)
[2018-10-09] MEDS: LEVEMIR (INSULIN DETEMIR) 1 UNITS/0.01ML SC SCH (09:14)
[2018-10-09] MEDS: ALLOPURINOL 100 MG TAB PO SCH (09:15)
[2018-10-09] MEDS: APIXABAN 5 MG TAB (ELIQUIS) PO SCH (09:15)
[2018-10-09] MEDS: HumaLOG INSULIN (NovoLOG) PER UNIT SC SCH (09:15)
[2018-10-09 09:16] VITALS: BP 129/79
[2018-10-09] MEDS: METOPROLOL TART 50 MG TAB PO SCH (09:16)
[2018-10-09] MEDS: VENLAFAXINE 37.5 MG TAB PO SCH (09:17)
[2018-10-09] MEDS: OMEPRAZOLE 20 MG CAP PO SCH (09:17)
[2018-10-09] MEDS: GABAPENTIN 300 MG CAP PO SCH (09:17)
[2018-10-09] MEDS: SPIRONOLACTONE 12.5MG PER 1/2 TABLET PO SCH (09:17)
[2018-10-09] MEDS: FUROSEMIDE 40 MG TAB PO SCH (09:17)
--- NOTE | 2018-10-09 15:55 | DS.PDOC ---
Discharge Summary General Date of Admission Oct 06, 2018 at 14:04 Date of Discharge 10/09/18 Primary Care Physician: DANA LANZA PA-C Attending Physician: Lamont Kramer MD Specialist/Consultants Involve: Amado Esposito Discharge Summary PROCEDURES PERFORMED DURING STAY: None ADMITTING DIAGNOSES: 1. Atrial Fibrillation with RVR COMPLICATIONS/CHIEF COMPLAINT: Afib With Rvr. HISTORY OF PRESENT ILLNESS: Patient sent to hospital for direct admissions for A-fib with RVR. Rate had been poorly controlled. She was symptomatic with light headedness and chest pressure. HOSPITAL COURSE: 1. Atrial fibrillation with RVR: Dr. Esposito was consulted. Metoprolol succinate was stopped and Metoprolol tartrate 50mg po bid started. She remained on Elquis [address] Esposito recommended we do not work to decrease the patient's heart rate anymore. His rationale was that her heart failure is primarily right-sided (cor pulmonale) and she needs a compensatory tachycardia in order to maintain effective output to the lungs. He believes we should try to control her rate below 120, but somewhere between in the 100-110s is probably optimal for her. If she were to choose to use her CPAP, or stop smoking, it's possible her pulmonary arterial pressure might decrease and therefore her heart rate may decrease on its own but this would be because she no longer needs as intense of a compensatory mechanism. Barring those changes, she needs that compensatory mechanism of a relative tachycardia to maintain adequate right heart output. He felt she was optimized. Extensively counseled patient regarding the importance/need for smoking cessation 2. COPD (chronic obstructive pulmonary disease): Remained on her outpatient regimen 3. CKD stage 3 due to type 2 diabetes mellitus: Renal function remained stable 4. Diastolic CHF: She was maintained on her outpatient regimen of Lasix 40mg po bid and Spironolactone 12.5mg po bid. She remained euvolemic DISCHARGE MEDICATIONS: Please see below. ALLERGIES: Please see below. PHYSICAL EXAMINATION ON DISCHARGE: VITAL SIGNS: Please see below. GENERAL: AOx3, NAD HEENT: unremarkable NECK: no JVD CARDIOVASCULAR EXAMINATION:Tachy, irregular rhythm RESPIRATORY EXAMINATION: CTA ABDOMINAL EXAMINATION: soft, non-distended EXTREMITIES: no edema SKIN: warm, dry LABORATORY DATA: Please see below. IMAGING: Chest x-ray: There is elevation of the right hemidiaphragm. An increase in interstitial markings is present in the lungs consistent with chronic interstitial fibrosis. The heart is normal in size. The pulmonary vasculature is normal in appearance. There are old right rib fractures. IMPRESSION: Chronic interstitial fibrosis. ACTIVITY: As tolerated DIET: 2gm low Na+, Consistent Carb DISCHARGE PLAN: To home DISCHARGE INSTRUCTIONS: 1. F/U with PCP in one week 2. F/U with Cardiology in one week ITEMS TO FOLLOWUP ON ON OUTPATIENT: 1. Family would like to discuss Hospice care DISCHARGE CONDITION: Stable Vital Signs/I&Os Vital Signs Date Time Temp Pulse Resp B/P (MAP) Pulse Ox O2 Delivery O2 Flow Rate FiO2 10/09/18 06:00 98.5 115 20 126/70 (88) 97 2.0 10/08/18 04:00 Nasal Cannula I&O- Last 24 Hours up to 6 AM 10/09/18 06:00 Intake Total 840 ml Output Total 1600 ml Balance -760 ml Laboratory Data Labs 24H Laboratory Tests 2 10/08/18 11:36: Bedside Glucose (Misc Panel) 434H 10/08/18 16:57: Bedside Glucose (Misc Panel) 460H 10/08/18 20:49: Bedside Glucose (Misc Panel) 525*H 10/08/18 21:14: Bedside Glucose Confirm (Misc) 489*H 10/09/18 06:00: Nucleated Red Blood Cells % (auto) 0.0, Anion Gap 7L, Glomerular Filtration Rate 57.9, Blood Urea Nitrogen 18, Creatinine 1.00, Sodium Level 135L, Potassium Level 3.8, Chloride Level 95L, Carbon Dioxide Level 33H, Calcium Level 9.0 CBC/BMP Laboratory Tests 10/09/18 06:00 Red Blood Count 4.27, Mean Corpuscular Volume 88.1, Mean Corpuscular Hemoglobin 26.9 L, Mean Corpuscular Hemoglobin Concent 30.6 L, Red Cell Distribution Width 15.5 H, Calcium Level 9.0 FSBS Laboratory Tests Test 10/08/18 11:36 10/08/18 16:57 10/08/18 20:49 Range/Units Bedside Glucose (Misc Panel) 434 460 525 83-110 MG/DL Discharge Medications Scheduled Allopurinol (Allopurinol) 100 Mg Tab, 100 MG PO QHS, (Reported) Apixaban (Eliquis) 5 Mg Tablet, 5 MG PO BID, (Reported) Aspirin (Aspirin EC) 81 Mg Tab, 81 MG PO DAILY, (Reported) Atorvastatin Calcium (Atorvastatin Calcium) 40 Mg Tab, 40 MG PO QHS, (Reported) Calcium Carbonate/Vitamin D3 (Calcium 600-Vit D3 800 Tablet) 1 Tab Tab, 1 TAB PO DAILY, (Reported) Cholecalciferol (Vitamin D3) (Vitamin D3) 400 Unit Capsule, 400 UNIT PO DAILY, (Reported) Ferrous Sulfate (Ferrous Sulfate) 325 Mg Tab, 325 MG PO DAILY, (Reported) Fexofenadine HCl (Fexofenadine HCl) 180 Mg Tab, 180 MG PO DAILY, (Reported) Fish Oil/Dha/Epa (Fish Oil 1,200 mg Fish Oil) 1 Each Capsule, 1 CAP PO BID, (Reported) Furosemide (Furosemide) 40 Mg Tablet, 40 MG PO BID Gabapentin (Gabapentin) 300 Mg Cap, 300 MG PO QID, (Reported) Insulin Glargine,Hum.rec.anlog (Lantus Solostar) 100 Unit/Ml Inj, 44 UNITS SC QHS, (Reported) Insulin Glargine,Hum.rec.anlog (Lantus Solostar) 100 Unit/Ml Inj, 60 UNITS SC QAM, (Reported) Insulin Human Lispro (Humalog) 1 Units/0.01 Ml Inj, 0 SC ACHS, (Reported) PER SLIDING SCALE Levothyroxine Sodium (Synthroid) 50 Mcg Tab, 50 MCG PO DAILY, (Reported) Magnesium Oxide (Magnesium Oxide) 400 Mg Tab, 800 MG PO TID, (Reported) Metoprolol Tartrate (Lopressor) 50 Mg Tablet, 50 MG PO BID Omeprazole (Omeprazole) 40 Mg Cap, 40 MG PO DAILY, (Reported) Ranitidine Hcl (Ranitidine HCl) 150 Mg Tab, 1 TAB PO DAILY, (Reported) Salmeterol/Fluticasone (Advair 500-50 Diskus) 28 Puff/Inhaler Aerp, 1 PUFF INH DAILY, (Reported) Spironolactone (Spironolactone) 25 Mg Tablet, 12.5 MG PO BID, (Reported) 0900,1700 Tamsulosin HCl (Flomax) 0.4 Mg Cap, 0.4 MG PO QHS, (Reported) Tiotropium Alfred (Spiriva) 18 Mcg Cap, 1 CAP INH DAILY, (Reported) Trazodone HCl (Trazodone HCl) 100 Mg Tab, 150 MG PO QHS, (Reported) Venlafaxine HCl (Venlafaxine HCl) 75 Mg Tab, 150 MG PO BID, (Reported) Vit A/Vit C/Vit E/Zinc/Copper (Preservision Areds Softgel) 1 Cap Cap, 1 CAP PO BID, (Reported) Scheduled PRN Albuterol Sulf (Albuterol Sulfate) 2.5 Mg/3 Ml Nebu, 2.5 MG INH Q4H PRN for SH ORTNESS OF BREATH, (Reported) Albuterol Sulfate (Proair Hfa) 108 Mcg/Act Aer, 2 PUFFS INH Q4H PRN for SHORTNESS OF BREATH, (Reported) Docusate Sodium (Docusate Sodium) 100 Mg Cap, 100 MG PO BID PRN for CONSTIPATION, (Reported) Oxycodone HCl/Acetaminophen (Oxycodone-Acetaminophen 5-325) 1 Tab Tab, 1 TAB PO TID PRN for PAIN, (Reported) Polyethylene Glycol 3350 (Miralax) 1 Pow Pow, 17 GM PO DAILY PRN for CONSTIPATION, (Reported) Allergies Coded Allergies: Penicillins (Verified Allergy, Unknown, 07/30/18) JOSS RODRIGUEZ Oct 09, 2018 08:59
== END 2018-10-09 10:04 | disposition home or self-care (01) | DRG 309 ==
LOC: EDSTATUS 14:00 → M PCU 14:04 → M MS5PR 10-08 21:48
PROVIDERS: ADMIT Family Medicine; ATTEND Family Medicine
DX: I48.0 Paroxysmal atrial fibrillation (principal); I50.32 Chronic diastolic (congestive) heart failure; I13.0 Hypertensive heart and chronic kidney disease with heart failure and stage 1 through stage 4 chronic kidney disease, or unspecified chronic kidney disease; C34.90 Malignant neoplasm of unspecified part of unspecified bronchus or lung; C77.9 Secondary and unspecified malignant neoplasm of lymph node, unspecified; N18.3 Chronic kidney disease, stage 3 (moderate); J44.9 Chronic obstructive pulmonary disease, unspecified; E11.9 Type 2 diabetes mellitus without complications; Z79.82 Long term (current) use of aspirin; Z79.899 Other long term (current) drug therapy; Z79.4 Long term (current) use of insulin; Z88.0 Allergy status to penicillin; G47.33 Obstructive sleep apnea (adult) (pediatric); I48.92 Unspecified atrial flutter; E66.01 Morbid (severe) obesity due to excess calories; F17.200 Nicotine dependence, unspecified, uncomplicated; E03.9 Hypothyroidism, unspecified; F03.90 Unspecified dementia, unspecified severity, without behavioral disturbance, psychotic disturbance, mood disturbance, and anxiety; F41.9 Anxiety disorder, unspecified; F32.9 Major depressive disorder, single episode, unspecified; I27.81 Cor pulmonale (chronic); Z66 Do not resuscitate; Z91.19 Patient's noncompliance with other medical treatment and regimen